=== PATIENT | female | born 1950 | race Caucasian/White ===

== ENCOUNTER → 2016-10-04 | Outpatient (CLI) | payer BC ==
[~2016-10-04] MED LIST: ALPR-411 PO; ALPR1TAB3 PO; ATRIN NAE; CHOLTAB3 PO; CLB200 PO; DOCU50CA2 PO; ESCI10TA17 PO; ESCI1TAB10 PO; FLUT0.15 NAE; HYDR-3714 PO; IMD/2 PO; LANS15CA6 PO; LBT/100 PO; LEVO25TA5 PO; LEVO50TA6 PO; LVQ750 PO; MAGN400T6 PO; MONT1TAB3 PO; POLYSOL4 OP; POTA-335 PO; PRED10TA PO; PRLSR20 PO; SPIR25TA PO
[2016-10-04 18:21] LABS: ALT/SGPT 12 U/L (12-78); BLOOD UREA NITROGEN 20 mg/dl (7-18); BUN/CREATININE RATIO 16.8 (10-20); CALCIUM 8.8 mg/dl (8.5-10.1); CARBON DIOXIDE 24 mmol/L (21-32); CHLORIDE 102 mmol/L (98-107); GLUCOSE 89 mg/dl (70-99); MAGNESIUM 1.6 mg/dl (1.8-2.4); SODIUM 139 mmol/L (136-145)
[2016-10-04 18:33] LABS: ALB/GLOB RATIO 0.7 (0.9-2); ALKALINE PHOSPHATASE 73 U/L (45-117); AST/SGOT 17 U/L (15-37); CHOLESTEROL 156 mg/dl (0-200); CHOLESTEROL/HDL RATIO 4.1; HDL CHOLESTEROL 38 mg/dl; LDL CHOLESTEROL CALCULATED 80 mg/dl; TRIGLYCERIDES 189 mg/dl (0-150); VERY LOW DENSITY LIPOPROT CALC 38 mg/dl
== END | disposition home or self-care (01) ==
LOC: C.LABPBG 11:20
PROVIDERS: ATTEND Family Medicine
DX: E87.6 Hypokalemia (principal); I10 Essential (primary) hypertension; E78.5 Hyperlipidemia, unspecified; M48.06 Spinal stenosis, lumbar region; E03.9 Hypothyroidism, unspecified

== ENCOUNTER → 2016-11-11 | Outpatient (CLI) | payer BC ==
[~2016-11-11] MED LIST changes: -ALPR-411 PO; -ESCI10TA17 PO; -LEVO25TA5 PO; -LVQ750 PO
[2016-11-11 15:05] LABS: THYROID STIMULATING HORMONE 2.68 uIu/ml (0.300-4.500)
[2016-11-11 15:12] LABS: CALCIUM URINE < 5.0 mg/dl; URINE COLLECTION TIME 24 HOURS
[2016-11-13 20:40] LABS: ALBUMIN 4.1 G/DL (3.8-4.8); GAMMA GLOBULIN 1.1 G/DL (0.8-1.7); TOTAL PROTEIN 7.4 G/DL (6.2-8.3)
== END | disposition home or self-care (01) ==
LOC: C.LAB1850 13:23
PROVIDERS: ATTEND Internal Medicine Rheumatology
DX: E03.9 Hypothyroidism, unspecified (principal); T38.0X1A Poisoning by glucocorticoids and synthetic analogues, accidental (unintentional), initial encounter; M80.88XD Other osteoporosis with current pathological fracture, vertebra(e), subsequent encounter for fracture with routine healing; E55.9 Vitamin D deficiency, unspecified; E61.8 Deficiency of other specified nutrient elements; Z79.52 Long term (current) use of systemic steroids; M85.851 Other specified disorders of bone density and structure, right thigh; M85.852 Other specified disorders of bone density and structure, left thigh

== ENCOUNTER → 2016-11-11 | Outpatient (CLI) | payer BC | END | disposition home or self-care (01) | LOC: C.MAMM 13:59 | PROVIDERS: ATTEND Internal Medicine Rheumatology | DX: M80.88XA Other osteoporosis with current pathological fracture, vertebra(e), initial encounter for fracture (principal); M85.851 Other specified disorders of bone density and structure, right thigh; M85.852 Other specified disorders of bone density and structure, left thigh ==

== ENCOUNTER → 2016-12-27 | Outpatient (CLI) | payer BC ==
[2016-12-30 10:19] LABS: URCREATININE 136.7 MG/DL (>/= 20)
--- NOTE | 2017-01-01 14:14 | CODING QUERY MEDICAL NECESSITY ---
CQSUPPORTING DIAGNOSIS NEEDED A supporting diagnosis is required for the test/procedure performed on this patient in order for us to be reimbursed by the patient's insurance. Please provide a supporting diagnosis for the following test/procedure listed below next to the test name along with your signature. *If there is no additional diagnosis for this patient that would support the following test/procedure please document that below next to the test/procedure. Test(s)/Procedure(s) that require a supporting diagnosis: DOS 12/27/16 CONTROLLED SUBSTANCE TESTING Provider Signature: Date: Thank you Goldie Burgess Health Information Management Once completed, please kindly fax back to [phone] For questions please call [phone]
== END | disposition home or self-care (01) ==
LOC: C.LABPBG 14:11
PROVIDERS: ATTEND Family Medicine
DX: S32.020A Wedge compression fracture of second lumbar vertebra, initial encounter for closed fracture (principal); X58.XXXA Exposure to other specified factors, initial encounter; Z79.899 Other long term (current) drug therapy

== ENCOUNTER → 2017-04-08 | Outpatient (CLI) | payer OTHER | END | disposition home or self-care (01) | LOC: C.LABPBG 12:53 | PROVIDERS: ATTEND Internal Medicine Rheumatology | DX: Z85.3 Personal history of malignant neoplasm of breast (principal); Z12.11 Encounter for screening for malignant neoplasm of colon; E03.9 Hypothyroidism, unspecified; I10 Essential (primary) hypertension; E78.5 Hyperlipidemia, unspecified; E55.9 Vitamin D deficiency, unspecified ==

== ENCOUNTER → 2017-04-29 | Outpatient (CLI) | payer OTHER ==
[2017-04-29 16:59] LABS: AST/SGOT 9 U/L (15-37); BLOOD UREA NITROGEN 11 mg/dl (7-18); BUN/CREATININE RATIO 11.4 (10-20); CALCIUM 9.3 mg/dl (8.5-10.1); CARBON DIOXIDE 27 mmol/L (21-32); CHLORIDE 106 mmol/L (98-107); CHOLESTEROL 176 mg/dl (0-200); CREATININE 0.94 mg/dl (0.60-1.20); GLUCOSE 88 mg/dl (70-99); POTASSIUM 3.9 mmol/L (3.5-5.1); SODIUM 140 mmol/L (136-145); TRIGLYCERIDES 177 mg/dl (0-150); VERY LOW DENSITY LIPOPROT CALC 35 mg/dl
[2017-04-29 17:09] LABS: ALB/GLOB RATIO 0.8 (0.9-2); ALKALINE PHOSPHATASE 71 U/L (45-117); ALT/SGPT 12 U/L (12-78); CHOLESTEROL/HDL RATIO 4.4; HDL CHOLESTEROL 40 mg/dl; LDL CHOLESTEROL CALCULATED 101 mg/dl
== END | disposition home or self-care (01) ==
LOC: C.LABBC 13:05
PROVIDERS: ATTEND Family Medicine
DX: I10 Essential (primary) hypertension (principal); E03.9 Hypothyroidism, unspecified; E78.5 Hyperlipidemia, unspecified; Z11.59 Encounter for screening for other viral diseases

== ENCOUNTER → 2017-10-15 | Outpatient (CLI) | payer OTHER ==
[~2017-10-15] MED LIST changes: -CLB200 PO; -LBT/100 PO; -PRED10TA PO
== END | disposition home or self-care (01) ==
LOC: C.LAB1850 15:27
PROVIDERS: ATTEND Internal Medicine Rheumatology
DX: S32.020A Wedge compression fracture of second lumbar vertebra, initial encounter for closed fracture (principal); M80.88XA Other osteoporosis with current pathological fracture, vertebra(e), initial encounter for fracture; X58.XXXA Exposure to other specified factors, initial encounter; E55.9 Vitamin D deficiency, unspecified

== ENCOUNTER → 2017-10-26 | Outpatient (CLI) | payer OTHER ==
[2017-10-31 16:54] LABS: FECAL OCCULT BLOOD #1 NEGATIVE (NEGATIVE); FECAL OCCULT BLOOD #2 NEGATIVE (NEGATIVE); FECAL OCCULT BLOOD #3 NEGATIVE (NEGATIVE)
== END | disposition home or self-care (01) ==
LOC: C.LABSPEC 14:01
PROVIDERS: ATTEND Family Medicine
DX: Z12.11 Encounter for screening for malignant neoplasm of colon (principal)

== ENCOUNTER → 2017-10-27 | Outpatient (CLI) | payer OTHER ==
[2017-10-27 12:40] LABS: HEMATOCRIT 38.6 % (37-47); HEMOGLOBIN 12.7 g/dL (12.0-16.0); MEAN CELL VOLUME 84.5 fL (80-100); MEAN CORPUSCULAR HEMOGLOBIN 27.8 pg (25-34); MEAN CORPUSCULAR HGB CONC 32.9 g/dl (32-36); MEAN PLATELET VOLUME 10.9 fL (7.4-10.4); PLATELET COUNT 335 K/uL (130-400); RED CELL DISTRIBUTION WIDTH SD 39.8 fL (36.4-46.3); WHITE BLOOD COUNT 7.45 K/uL (4.8-10.8)
[2017-10-27 13:39] LABS: ALBUMIN 3.4 gm/dl (3.4-5.0); ALT/SGPT 13 U/L (12-78); AST/SGOT 9 U/L (15-37); BLOOD UREA NITROGEN 15 mg/dl (7-18); CALCIUM 8.8 mg/dl (8.5-10.1); CARBON DIOXIDE 25 mmol/L (21-32); GLUCOSE 95 mg/dl (70-99); POTASSIUM 3.6 mmol/L (3.5-5.1); SODIUM 141 mmol/L (136-145); TOTAL PROTEIN 7.4 gm/dl (6.4-8.2)
[2017-10-27 13:50] LABS: ALKALINE PHOSPHATASE 88 U/L (45-117); CHOLESTEROL 203 mg/dl (0-200); LDL CHOLESTEROL CALCULATED 126 mg/dl
== END | disposition home or self-care (01) ==
LOC: C.LABPBG 10:39
PROVIDERS: ATTEND Family Medicine
DX: E03.9 Hypothyroidism, unspecified (principal); I10 Essential (primary) hypertension; M48.061 Spinal stenosis, lumbar region without neurogenic claudication; E78.5 Hyperlipidemia, unspecified

== ENCOUNTER → 2017-12-11 | Outpatient (CLI) | payer OTHER ==
--- NOTE | 2017-12-12 07:46 | MAMMOGRAPHY REPORT ---
BILATERAL DIGITAL SCREENING MAMMOGRAM TOMOSYNTHESIS WITH CAD: 12/11/2017 CLINICAL HISTORY: Routine screening. Patient has no complaints. TECHNIQUE: Breast tomosynthesis in addition to standard 2D mammography was performed. Current study was also evaluated with a Computer Aided Detection (CAD) system. COMPARISON: Comparison is made to exams dated: 10/10/2015 mammogram, 09/13/2014 mammogram - [facility], 05/27/2013 mammogram, and 02/20/2012 mammogram - [facility]-. BREAST COMPOSITION: The tissue of both breasts is almost entirely fatty. FINDINGS: No suspicious masses, calcifications, or areas of architectural distortion are noted in ei ther breast. There has been no significant interval change compared to prior exams. Scattered bilater al benign-appearing calcifications are not significantly changed. IMPRESSION: ACR BI-RADS CATEGORY 2: BENIGN There is no mammographic evidence of malignancy. A 1 year screening mammogram is recommended. The pa tient will receive written notification of the results. Approximately 10% of breast cancers are not detected with mammography. A negative mammographic report should not delay biopsy if a clinically suggestive mass is present. Allie Huynh M.D. ah/:12/11/2017 17:23:10 Schedule Checker: Samantha HEATH(Yue)(M), [facility] letter sent: Normal 1/2 BI-RADS Code: ACR BI-RADS Category 2: Benign
== END | disposition home or self-care (01) ==
LOC: C.MAMM 10:59
PROVIDERS: ATTEND Internal Medicine Rheumatology
DX: Z12.31 Encounter for screening mammogram for malignant neoplasm of breast (principal); Z85.3 Personal history of malignant neoplasm of breast

== ENCOUNTER → 2018-03-31 | Outpatient (CLI) | payer OTHER ==
[~2018-03-31] MED LIST changes: +DICL1GEL12; +DICLOFENAC CREAM; -HYDR-3714 PO; +HYDR0.054; +LIDO1CRE16 TOP
--- NOTE | 2018-03-31 15:40 | DIAGNOSTIC IMAGING REPORT ---
LUMBAR SPINE MRI HISTORY: LUMBAR STENOSIS TECHNIQUE: Multiplanar multisequence MRI of the lumbar spine was performed without the use of contrast. COMPARISON: Lumbar spine radiograph 02/16/2016. FINDINGS: For the purpose of the report the L5-S1 disc space will be located on axial image 31 of 33. Mild superior endplate compression deformities at T10, T11, L1, L2, and L3. No associated marrow edema. Therefore, these are considered to be old. There is a severe anterior wedge-shaped compression deformity at T12 which is similar to the prior study. There is 4 mm of retropulsion of the posterior fragment. Severe disc space narrowing at L3-L4, L4-L5, and L5-S1. Mild disc space narrowing at T11-T12 and T12-L1. Mild to moderate facet degenerative changes within the lumbar spine. Paraspinal soft tissues are within normal limits. The conus terminates at the T12-L1 disc space level. There is mild central canal narrowing at the T12 level due to the retropulsion. Mild S-shaped scoliosis of the thoracolumbar spine. T12-L1: Broad-based posterior disc bulge with retropulsion of the T12 vertebral body resulting in mild central canal and mild bilateral neural foraminal narrowing. L1-L2: Broad-based posterior disc bulge with ligamentum and facet hypertrophy resulting in mild central canal and mild bilateral neural foraminal narrowing. L2-L3: Broad-based posterior disc bulge with ligamentum and facet hypertrophy resulting in moderate central canal and mild bilateral neural foraminal narrowing. L3-L4: Broad-based posterior disc bulge asymmetric to the left resulting in moderate central canal and moderate right neural foraminal narrowing. There is mild left-sided neural foraminal narrowing. L4-L5: Broad-based posterior disc bulge asymmetric to the left. In conjunction with the ligamentum and facet hypertrophy there is severe central canal and severe left-sided neural foraminal narrowing. Moderate right-sided neural foraminal narrowing. L5-S1: Small broad-based posterior disc bulge with ligamentum and facet hypertrophy. Best seen on axial image 29 of 33 there is a 5 mm slightly T2 hyperintense focus which appears to be extending from the right L5-S1 facet. This extends into the right side of the thecal sac and results in moderate to severe central canal narrowing. This favors a synovial cyst. There is also moderate bilateral neural foraminal narrowing. IMPRESSION: 1. Multiple old compression fractures seen within the lower thoracic and upper lumbar spine as described above. The severe compression deformity at T12 is not significantly changed and continues to demonstrate 4 mm of retropulsion. This results in mild central canal narrowing at this level. No acute fractures identified. 2. Multilevel moderate to severe lumbar spondylosis as described above most notable within the lower lumbar spine. 3. There is a 5 mm T2 hyperintense focus extending from the right L5-S1 facet into the thecal sac resulting in moderate to severe central canal narrowing at the L5-S1 level. This favors a synovial cyst. 4. S-shaped scoliosis of the thoracolumbar spine. Electronically signed by: Azael Pinto M.D. 03/31/2018 3:39 PM Dictated Date/Time: 03/31/2018 3:26 PM
== END | disposition home or self-care (01) ==
LOC: C.MRIBC 14:38
PROVIDERS: ATTEND Physician Assistant Medical
DX: M48.061 Spinal stenosis, lumbar region without neurogenic claudication (principal); M41.9 Scoliosis, unspecified; M47.816 Spondylosis without myelopathy or radiculopathy, lumbar region

== ENCOUNTER 2019-02-26 10:50 | Inpatient (IN) ==
--- NOTE | 2019-02-08 11:33 | PAT Medication Instructions ---
Medication Instructions Date of Service February 08, 2019 Home Medications Medication Instructions Recorded celecoxib 200 mg capsule 200 mg PO DAILY PRN #90 cap 02/08/19 cholecalciferol (vitamin D3) 400 unit capsule 400 units PO QPM escitalopram 20 mg tablet 20 mg PO QAM fluticasone propionate 50 mcg/actuation nasal spray,suspension 1 sprays INTNAS BID PRN ipratropium bromide 17 mcg/actuation HFA aerosol inhaler 2 puffs INH DAILY PRN levothyroxine 50 mcg capsule 50 mcg PO QAM loperamide 2 mg capsule 2 mg PO Q4H PRN magnesium oxide 400 mg (241.3 mg magnesium) tablet 400 mg PO BID montelukast 10 mg tablet 10 mg PO QPM omeprazole 20 mg capsule,delayed release 20 mg PO DAILY propylene glycol 0.6 % eye drops 1 % OP .as directed spironolactone 25 mg tablet 25 mg PO QAM folic acid 1 mg tablet 1 mg PO QAM methotrexate sodium 2.5 mg tablet 15 mg PO .weekly nortriptyline 25 mg capsule 25 mg PO HS labetalol 100 mg PO BID pravastatin 20 mg PO QAM docusate sodium 100 mg capsule 1 PO .TAKE 1 CAPSULE DAILY potassium chloride ER 20 mEq tablet,extended release PO prochlorperazine maleate 5 mg tablet PO PRN celecoxib 200 mg capsule 200 mg PO DAILY PRN ASK your surgeon for instructions celecoxib 200 mg capsule 200 mg PO DAILY PRN ASK your prescriber and surgeon methotrexate sodium 2.5 mg tablet 15 mg PO .weekly DO NOT take the morning of surgery loperamide 2 mg capsule 2 mg PO Q4H PRN magnesium oxide 400 mg (241.3 mg magnesium) tablet 400 mg PO BID spironolactone 25 mg tablet 25 mg PO QAM folic acid 1 mg tablet 1 mg PO QAM docusate sodium 100 mg capsule 1 PO .TAKE 1 CAPSULE DAILY potassium chloride ER 20 mEq tablet,extended release PO Take morning of surgery With a small sip of water, OTHERWISE NOTHING TO EAT OR DRINK AFTER MIDNIGHT: escitalopram 20 mg tablet 20 mg PO QAM fluticasone propionate 50 mcg/actuation nasal spray,suspension 1 sprays INTNAS BID PRN (if needed) ipratropium bromide 17 mcg/actuation HFA aerosol inhaler 2 puffs INH DAILY PRN (if needed, and bring with you to the hospital) levothyroxine 50 mcg capsule 50 mcg PO QAM omeprazole 20 mg capsule,delayed release 20 mg PO DAILY propylene glycol 0.6 % eye drops 1 % OP .as directed labetalol 100 mg PO BID pravastatin 20 mg PO QAM prochlorperazine maleate 5 mg tablet PO PRN (if needed) Take evening before surgery cholecalciferol (vitamin D3) 400 unit capsule 400 units PO QPM fluticasone propionate 50 mcg/actuation nasal spray,suspension 1 sprays INTNAS BID PRN (if needed) ipratropium bromide 17 mcg/actuation HFA aerosol inhaler 2 puffs INH DAILY PRN (if needed) loperamide 2 mg capsule 2 mg PO Q4H PRN (if needed) magnesium oxide 400 mg (241.3 mg magnesium) tablet 400 mg PO BID montelukast 10 mg tablet 10 mg PO QPM omeprazole 20 mg capsule,delayed release 20 mg PO DAILY propylene glycol 0.6 % eye drops 1 % OP .as directed nortriptyline 25 mg capsule 25 mg PO HS labetalol 100 mg PO BID docusate sodium 100 mg capsule 1 PO .TAKE 1 CAPSULE DAILY potassium chloride ER 20 mEq tablet,extended release PO prochlorperazine maleate 5 mg tablet PO PRN (if needed) Other Notes If you have any questions please call us at [phone] or [phone] or [phone] or [phone]
--- NOTE | 2019-02-08 11:53 | Anesthesiology Consultation ---
Date of Service February 08, 2019 Assessment & Plan (1) Encounter for pre-operative examination: Chart Review Chart Review: Acceptable Risk for Surgery and Patient seen in Pre Admission Testing Teaching & Discussion Instructed NPO after midnight before surgery, except medications with 15 cc of water. Medication instructions provided according to the PAT guidelines. History Surgery Operation Date: 02/26/19 10:00 Proposed Procedures p Left Reverse Total Shoulder Replacement - Sumit Ramirez, Height/Weight Height: 5 ft Weight: 67.9 kg Allergies Allergy/AdvReac Type Severity Reaction Status Date / Time bacitracin Allergy Intermediate hives, Unverified 02/05/19 13:12 blisters clavulanic acid Allergy Intermediate HIVES Verified 02/05/19 13:12 diphenhydramine Allergy Intermediate HIVES Verified 02/05/19 13:12 iodine Allergy Intermediate hives Verified 02/05/19 13:12 neomycin Allergy Intermediate hives, Unverified 02/05/19 13:12 blisters NSAIDS (Non-Steroidal Allergy Intermediate HIVES -- Verified 02/05/19 13:12 Anti-Inflamma TOLERATES CELEBREX ONLY oxycodone Allergy Intermediate HIVES; Verified 02/05/19 13:12 TOLERATES VICODIN polymyxin B Allergy Intermediate hives, Unverified 02/05/19 13:12 blisters quinine Allergy Intermediate HIVES Verified 02/05/19 13:12 Sulfa (Sulfonamide Allergy Intermediate HIVES Verified 02/05/19 13:12 Antibiotics) tramadol Allergy Intermediate HIVES,ITCHI Verified 02/05/19 13:12 NG latex Allergy Mild RASH Verified 02/05/19 13:12 povidone-iodine Allergy Mild RASH Verified 02/05/19 13:12 adhesive Allergy Unknown RASH Verified 02/05/19 13:12 ketorolac Allergy Unknown HIVES Unverified 02/05/19 13:12 meclofenamic acid Allergy Unknown HIVES Verified 02/05/19 13:12 meperidine AdvReac Intermediate NAUSEA/VOMI Verified 02/05/19 13:12 TING aspirin AdvReac Mild NAUSEA/VOMI Verified 01/21/19 13:13 TING Medications Home Medications Medication Instructions Recorded Confirmed Last Taken cholecalciferol (vitamin D3) 400 400 units PO QPM 05/26/18 02/05/19 Unknown unit capsule escitalopram 20 mg tablet 20 mg PO QAM tab 05/26/18 02/05/19 Unknown fluticasone propionate 50 1 sprays INTNAS BID PRN gm 05/26/18 02/05/19 Unknown mcg/actuation nasal spray,suspension ipratropium bromide 17 2 puffs INH DAILY PRN gm 05/26/18 02/05/19 Unknown mcg/actuation HFA aerosol inhaler levothyroxine 50 mcg capsule 50 mcg PO QAM 05/26/18 02/05/19 Unknown loperamide 2 mg capsule 2 mg PO Q4H PRN 05/26/18 02/05/19 Unknown magnesium oxide 400 mg (241.3 mg 400 mg PO BID tab 05/26/18 02/05/19 Unknown magnesium) tablet montelukast 10 mg tablet 10 mg PO QPM 05/26/18 02/05/19 Unknown omeprazole 20 mg capsule,delayed 20 mg PO DAILY 05/26/18 02/05/19 Unknown release propylene glycol 0.6 % eye drops 1 % OP .as directed ml 05/26/18 02/05/19 Unknown spironolactone 25 mg tablet 25 mg PO QAM 05/26/18 02/05/19 Unknown folic acid 1 mg tablet 1 mg PO QAM 01/13/19 02/05/19 Unknown methotrexate sodium 2.5 mg tablet 15 mg PO .weekly tab 01/13/19 02/05/19 Unknown nortriptyline 25 mg capsule 25 mg PO HS cap 01/13/19 02/05/19 Unknown labetalol 100 mg PO BID 01/21/19 02/05/19 Unknown pravastatin 20 mg PO QAM 01/21/19 02/05/19 Unknown docusate sodium 100 mg capsule 1 PO .TAKE 1 CAPSULE DAILY cap 02/03/19 02/05/19 Unknown potassium chloride ER 20 mEq PO .TAKE 1 TABLET BY KASSY #180 tab 02/03/19 02/05/19 Unknown tablet,extended release prochlorperazine maleate 5 mg PO .TAKE 1 TABLET EVERY #30 tab 02/03/19 02/05/19 Unknown tablet celecoxib 200 mg capsule 200 mg PO DAILY PRN #90 cap 02/08/19 Unknown Past Medical History Medical History Steroid-induced osteoporosis Hyperlipidemia Constipation Cervicalgia Compression fracture of body of thoracic vertebra Per CXR 11/21/18, compression fractures at T8, T10-L3 vertebral bodies, severe at T12. SURGEON MADE AWARE. Vitamin D deficiency Depression Allergic rhinitis Anxiety Asthma uses PRN inh 2 x wk on avg Hypertension DJD (degenerative joint disease) Chronic back pain GERD (gastroesophageal reflux disease) History of right breast cancer s/p lumpectomy Hyperlipidemia Hypothyroidism IBS (irritable bowel syndrome) Osteoarthritis Rheumatoid arthritis On Methotrexate Exercise / Class Metabolic Activity II 4-5 Yardwork/Stairs/Walk up hill (Does stairs at home daily, some +SOB, no CP.) Past Family History Family History Grandmother (Paternal) Family history of diabetes mellitus Grandmother (Maternal) Family history of diabetes mellitus Past Surgical History Surgical History History of breast biopsy (Resolved) Status post total shoulder arthroplasty (Resolved) Right History of arthroscopy of left knee History of foot surgery BL History of lumpectomy of right breast History of right knee joint replacement History of tonsillectomy History of total abdominal hysterectomy and bilateral salpingo-oophorectomy Nausea and vomiting after administration of anesthetic agent 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 +seasonal allergies Physical Exam Vital Signs BP: 131/83 P: 78bpm SPO2: 96% RA T: 98.3 F R: 16 ENMT Mouth: + poor dentition, + chipped teeth (many teeth broken off at the root) and + small oral opening; no loose teeth Thyromental Distance: < 3.5 Finger Breadths (3) Mallampati Class: III Neck + short neck and + thick neck; neck extension not limited Significant loose tissue/skin anterior neck. Respiratory normal respiratory effort Auscultation: lungs clear to auscultation bilaterally Cardiovascular Rate/Rhythm: regular rate and regular rhythm Heart Sounds: no murmur Vessels: no carotid bruit Extremities: no edema Testing Laboratory Results 02/08/19 12:01 02/08/19 02/08/19 12:01 12:01 PT 10.1 INR 1.0 APTT 24.4 Blood Type A Negative Antibody Screen NEGATIVE 01/15/19 WBC: 7.11 H/H: 12.5/38.4 PLATELETS: 350 Electrocardiogram Date: 02/08/19 Findings: + NSR @ (80) LVH with QRS widening and repolarization abnormality. Compared to EKG from 02/19/16, PACs no longer present, QRS duration has increased, criteria for anterior infarct no longer present, NSTWA no longer evident in inferior leads, QT has lengthened. Chest X-Ray Date: 11/21/18 Lungs essentially clear. Right total shoulder prosthesis with metallic humeral and glenoid components. Scoliosis. Compression fractures of the approximately T8 and T10-L3 vertebral bodies, severe at T12. Cholelithiasis. Stress Test Date: 08/07/15 Type: DSE Resting EF: 50-55% Negative dobutamine stress echo and EKG for myocardial ischemia at 68% maximum predicted heart rate. No EKG changes. No dobutamine induced chest pain. Patient had hypertensive blood pressure response to dobutamine infusion. Baseline echocardiogram notes normal LV function. Cervical Spine Date: 02/08/19 FINDINGS: There is straightening of the normal cervical lordosis. No cervical spine fracture is noted. There is moderate to severe multilevel disc space narrowing and facet arthrosis within the cervical spine. During flexion, the atlantodental interval measures 2 mm. There is no evidence for cervical spine instability. IMPRESSION: 1. No evidence of cervical spine instability during flexion or extension. 2. Moderate to severe multilevel degenerative disc disease and facet arthrosis within the cervical spine.
[2019-02-08 12:28] LABS: Partial Thromboplastin Ratio 0.9; Partial Thromboplastin Time 24.4 Seconds (21.0-31.0); Prothrombin Time 10.1 Seconds (9.0-12.0)
--- NOTE | 2019-02-08 13:42 | XRay Report ---
LATERAL CERVICAL SPINE RADIOGRAPHS, INCLUDING FLEXION AND EXTENSION CLINICAL HISTORY: pre op RA; lateral neutral/flexion/extension COMPARISON STUDY: Cervical spine radiographs November 21, 2014. FINDINGS: There is straightening of the normal cervical lordosis. No cervical spine fracture is noted . There is moderate to severe multilevel disc space narrowing and facet arthrosis within the cervical spine. During flexion, the atlantodental interval measures 2 mm. There is no evidence for cervical s pine instability. IMPRESSION: 1. No evidence of cervical spine instability during flexion or extension. 2. Moderate to severe multilevel degenerative disc disease and facet arthrosis within the cervical sp ine. Electronically signed by: Rodney Gilbert M.D. 02/08/2019 1:41 PM
[2019-02-08 14:31] LABS: BUN Creatinine Ratio 15.8 (10-20); Calcium 9.3 mg/dl (8.5-10.1); Creatinine Clr Calc Pharmacy 51.7 ml/min; Est GFR (African American) 75.2; Est GFR (Non-African American) 64.9; Potassium 3.9 mmol/L (3.5-5.1)
--- NOTE | 2019-02-25 14:40 | History & Physical Report ---
Date of Service February 25, 2019 Assessment & Plan (1) Rotator cuff arthropathy of left shoulder: We will proceed with a left reverse shoulder arthroplasty. Postoperatively she will be placed in a sling and kept overnight for postoperative medical management. She plans to use [facility] in [place] upon discharge. Present on Admission?: Yes History of Present Illness Chief Complaint: Rotator cuff arthropathy of the left shoulder Primary Care Provider: Tayla Kent DO Tammy is a pleasant 68-year-old female who is been dealing with chronic increasing left shoulder pain. I have been treating her with serial injections, but the injections are no longer helping. She does have a history of a left rotator cuff repair done in 2008 by another provider. She also has a history of a right reverse shoulder arthroplasty done by another provider about 10 years ago. Unfortunately she continues to have a lot of left shoulder pain. After failing conservative treatment, she has elected proceed with a left reverse shoulder arthroplasty. Allergies Allergy/AdvReac Type Severity Reaction Status Date / Time bacitracin Allergy Intermediate hives, Unverified 02/05/19 13:12 blisters clavulanic acid Allergy Intermediate HIVES Verified 02/05/19 13:12 diphenhydramine Allergy Intermediate HIVES Verified 02/05/19 13:12 iodine Allergy Intermediate hives Verified 02/05/19 13:12 neomycin Allergy Intermediate hives, Unverified 02/05/19 13:12 blisters NSAIDS (Non-Steroidal Allergy Intermediate HIVES -- Verified 02/05/19 13:12 Anti-Inflamma TOLERATES CELEBREX ONLY oxycodone Allergy Intermediate HIVES; Verified 02/05/19 13:12 TOLERATES VICODIN polymyxin B Allergy Intermediate hives, Unverified 02/05/19 13:12 blisters quinine Allergy Intermediate HIVES Verified 02/05/19 13:12 Sulfa (Sulfonamide Allergy Intermediate HIVES Verified 02/05/19 13:12 Antibiotics) tramadol Allergy Intermediate HIVES,ITCHI Verified 02/05/19 13:12 NG latex Allergy Mild RASH Verified 02/05/19 13:12 povidone-iodine Allergy Mild RASH Verified 02/05/19 13:12 adhesive Allergy Unknown RASH Verified 02/05/19 13:12 ketorolac Allergy Unknown HIVES Unverified 02/05/19 13:12 meclofenamic acid Allergy Unknown HIVES Verified 02/05/19 13:12 meperidine AdvReac Intermediate NAUSEA/VOMI Verified 02/05/19 13:12 TING aspirin AdvReac Mild NAUSEA/VOMI Verified 01/21/19 13:13 TING Home Medications Home Medications Medication Instructions Recorded Confirmed Type cholecalciferol (vitamin D3) 400 400 units PO QPM 05/26/18 02/05/19 History unit capsule escitalopram 20 mg tablet 20 mg PO QAM tab 05/26/18 02/05/19 History fluticasone propionate 50 1 sprays INTNAS BID PRN gm 05/26/18 02/05/19 History mcg/actuation nasal spray,suspension ipratropium bromide 17 2 puffs INH DAILY PRN gm 05/26/18 02/05/19 History mcg/actuation HFA aerosol inhaler levothyroxine 50 mcg capsule 50 mcg PO QAM 05/26/18 02/05/19 History loperamide 2 mg capsule 2 mg PO Q4H PRN 05/26/18 02/05/19 History magnesium oxide 400 mg (241.3 mg 400 mg PO BID tab 05/26/18 02/05/19 History magnesium) tablet montelukast 10 mg tablet 10 mg PO QPM 05/26/18 02/05/19 History omeprazole 20 mg capsule,delayed 20 mg PO DAILY 05/26/18 02/05/19 History release propylene glycol 0.6 % eye drops 1 % OP .as directed ml 05/26/18 02/05/19 History spironolactone 25 mg tablet 25 mg PO QAM 05/26/18 02/05/19 History folic acid 1 mg tablet 1 mg PO QAM 01/13/19 02/05/19 History methotrexate sodium 2.5 mg tablet 15 mg PO .weekly tab 01/13/19 02/05/19 History nortriptyline 25 mg capsule 25 mg PO HS cap 01/13/19 02/05/19 History labetalol 100 mg PO BID 01/21/19 02/05/19 History pravastatin 20 mg PO QAM 01/21/19 02/05/19 History docusate sodium 100 mg capsule 1 PO .TAKE 1 CAPSULE DAILY cap 02/03/19 02/05/19 History potassium chloride ER 20 mEq PO .TAKE 1 TABLET BY KASSY #180 tab 02/03/19 02/05/19 History tablet,extended release prochlorperazine maleate 5 mg PO .TAKE 1 TABLET EVERY #30 tab 02/03/19 02/05/19 History tablet celecoxib 200 mg capsule 200 mg PO DAILY PRN #90 cap 02/08/19 Rx Past Med/Surg History Medical History Steroid-induced osteoporosis Hyperlipidemia Constipation Cervicalgia Compression fracture of body of thoracic vertebra Per CXR 11/21/18, compression fractures at T8, T10-L3 vertebral bodies, severe at T12. SURGEON MADE AWARE. Vitamin D deficiency Depression Allergic rhinitis Anxiety Asthma uses PRN inh 2 x wk on avg Hypertension DJD (degenerative joint disease) Chronic back pain GERD (gastroesophageal reflux disease) History of right breast cancer s/p lumpectomy Hyperlipidemia Hypothyroidism IBS (irritable bowel syndrome) Osteoarthritis Rheumatoid arthritis On Methotrexate Surgical History History of breast biopsy (Resolved) Status post total shoulder arthroplasty (Resolved) Right History of arthroscopy of left knee History of foot surgery BL History of lumpectomy of right breast History of right knee joint replacement History of tonsillectomy History of total abdominal hysterectomy and bilateral salpingo-oophorectomy Nausea and vomiting after administration of anesthetic agent 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 Family History Grandmother (Paternal) Family history of diabetes mellitus Grandmother (Maternal) Family history of diabetes mellitus Social History Preferred Language: [place]ian Communication Ability: Effective Visual Impairment: No Limitations Hearing Ability: Normal Beliefs That Will Affect Care: None marital status: Current Living Situation: Spouse current occupational status: retired Feels Safe at Home: Yes Smoking Status: Never smoker Second Hand Exposure: Yes ( A CHILD) Hx Alcohol Use: No Hx Substance Use: No Review of Systems All systems reviewed & are unremarkable except as noted in HPI & below Physical Exam Constitutional: WD/WN, vitals as above Eyes: PERRL, conjunctivae normal, anicteric sclerae ENMT: external ear and nose normal, oropharynx normal Neck: trachea midline, no thyromegaly Respiratory: normal respiratory effort Cardiovascular: RRR, no murmur, no edema Gastrointestinal (Abdomen): normal bowel sounds, soft, nontender, no hepatosplenomegaly Musculoskeletal: Physical examination of the left shoulder reveals decreased range of motion and significant weakness. There is tenderness palpation along the anterior glenohumeral joint line. The right upper extremity is n eurovascularly intact. Psychiatric: A+Ox3, euthymic affect Results & Data Diagnostic Findings Radiographs of the left shoulder show some signs of osteoarthritis with blunting of the greater tuberosity and some superior migration of the humeral head on the glenoid.
[~2019-02-26 10:50] MED LIST changes: +ACETAMINOPHEN 500 MG TAB PO SCH; -ALPR1TAB3 PO; -ATRIN NAE; +BUPIVACAINE 0.5 % 5 MG/1 ML PF 10ML VIAL ONE; -CHOLTAB3 PO; +DEXAMETHASONE SOD INJ 4 MG/ML VIAL ONE; -DICL1GEL12; -DICLOFENAC CREAM; -DOCU50CA2 PO; -ESCI1TAB10 PO; +FAMOTIDINE 20 MG TAB PO SCH; -FLUT0.15 NAE; +GABAPENTIN 300 MG PO SCH; +GENERAL ORDER PROBLEM SCH; +GLYCOPYRROLATE 0.2 MG/ML VIAL ONE; -HYDR0.054; -IMD/2 PO; -LANS15CA6 PO; -LEVO50TA6 PO; -LIDO1CRE16 TOP; +LIDOCAINE HCL 2% 2 ML VIAL/AMP(20MG/ML) INFIL ONE; +LR 15ML/HR IV SCH; +LR 60ML/HR IV SCH; -MAGN400T6 PO; +MIDAZOLAM HCL 1 MG/ML 2ML VIAL ONE; -MONT1TAB3 PO; +NEOSTIGMINE METHYLSULFATE 5 MG/5 ML SYR ONE; +ONDANSETRON INJ 2 MG/ML 2 ML VIAL ONE; -POLYSOL4 OP; -POTA-335 PO; -PRLSR20 PO; +PROPOFOL IV EMULSION 10 MG/ML 20 ML VIAL IV ONE; +ROPIVACAINE 0.5% HCL/PF 150 MG, BUPIVACAINE 0.5% MPF 30 ML, EPINEPHrine 30MG/30ML (OR U... INFIL SCH; -SPIR25TA PO; +TRANEXAMIC ACID 1,000 MG **IV Intra-op IV SCH; +TRANEXAMIC ACID 1,000 MG **IV Pre-op IV SCH; +fentaNYL citrate 100 MCG/2 ML VIAL ONE
[2019-02-26] MEDS ORDERED: MIDAZOLAM HCL 1 MG/ML 2ML VIAL ONE (11:08)
--- NOTE | 2019-02-26 11:28 | History & Physical Bridge Note ---
Date of Service February 26, 2019 History & Physical Bridge Note I have examined the patient, reviewed the History & Physical and in the interval since the performance of the History & Physical I have noted the following changes of clinical significance: no changes noted
[2019-02-26] MEDS ORDERED: ORTHO JOINT ANESTHETIC ONE (12:05)
[2019-02-26] MEDS ORDERED: CEFAZOLIN 1000MG 1,000 MG/7.5 ML SYR IV ONE (12:16)
[2019-02-26] MEDS ORDERED: SCOPOLAMINE 1.5 MG TDSY TD ONE (12:17)
[2019-02-26] MEDS ORDERED: HYDROmorphone INJ 1 MG/ML SYRINGE IV PRN (12:18)
[2019-02-26] MEDS ORDERED: ONDANSETRON INJ 2 MG/ML 2 ML VIAL IV PRN ×2 (12:18→15:50)
[2019-02-26] MEDS ORDERED: PROMETHAZINE HCL 6.25 MG in SODIUM CHLORIDE 0.9% 50 ML IV PRN (12:18)
[2019-02-26] MEDS ORDERED: LABETALOL HCL IV 5 MG/ML 20ML IV PRN (12:18)
[2019-02-26] MEDS ORDERED: ATROPINE SULFATE 0.1 MG/ML 10ML SYR IV PRN (12:18)
[2019-02-26] MEDS ORDERED: CEFAZOLIN 1,000 MG/7.5 ML IV PUSH IV ONE (12:19)
[2019-02-26] MEDS ORDERED: SCOPOLAMINE 1.5 MG TDSY ONE (12:20)
[2019-02-26] MEDS ORDERED: LARYING-O-JET KIT (LTA) ONE (13:33)
[2019-02-26] MEDS ORDERED: ROCURONIUM BROMIDE 10 MG/ML 5 ML VIAL ONE (13:33)
[2019-02-26] MEDS ORDERED: ONDANSETRON INJ 2 MG/ML 2 ML VIAL ONE (13:33)
[2019-02-26] MEDS ORDERED: GLYCOPYRROLATE 0.2 MG/ML VIAL ONE (13:58)
--- NOTE | 2019-02-26 14:04 | Operative Report ---
Post Operative Report Pre & Post Diagnosis Operation Date: 02/26/19 13:20 Pre-Op Diagnosis: Left Shoulder rotator cuff arthropathy Post-Op Diagnosis: Left Shoulder rotator cuff arthropathy Procedure Operation Date: 02/26/19 13:20 Actual Procedures p Left Reverse Total Shoulder Replacement(Left) - Sumit Ramirez DO Surgeon Sumit Ramirez DO Corporate Sales Representative Sumit Rahman PAC Estimated Blood Loss 250 Findings Consistent with Post-Op Diagnosis Specimens Left humeral head Complications none Disposition Disposition: Recovery Room Indications Della is a pleasant 68-year-old female who presented my office with complaints of chronic increasing left shoulder pain and weakness. She has a history of a open rotator cuff repair done by another provider about 10 years ago. She did well until recently. Clinical examination and x-rays were diagnostic for rotator cuff arthropathy of the left shoulder. After failing conservative treatment, she elected proceed with a left reverse shoulder arthroplasty. Description of Procedure Implants used: I used a [employer] Comprehensive reverse total shoulder arthroplasty system with a size 9 press fit mini humeral stem, a standard humeral tray and a standard humeral bearing, a 25 mm mini baseplate with a 6.5 mm central screw and superior and inferior locking screws, and a size 36 mm eccentric glenosphere. The patient arrived at [facility] for the above procedure. There were seen in the preoperative holding area and the operative extremity was identified and signed. They were given a preoperative antibiotic and an interscalene nerve block. They were taken back to the operating room, laid on table in supine position, and put under general anesthesia. They were then put into the beachchair position. The shoulder was then prepped and draped in sterile fashion. A timeout was done and the patient in the operative extremity was properly identified. A deltopectoral approach was used. Dissection was taken down through the fascia and the deltoid was retracted laterally and the conjoined tendon was retracted medially. The anterior shoulder was exposed. The long head of the biceps tendon was tenodesed to the upper border of the pectoralis major. The subscapularis was then released off the lesser tuberosity with a centimeter of cuff tissue remaining. The inferior capsule was released and the humeral head was dislocated. A canal finding reamer was sent down the center of the humeral canal. Sequential reaming up to a size 9 reamer was done. Off that reamer, a proximal humeral resection guide was placed. The proximal humerus was resected at 135 of inclination and 25 of retroversion. Osteophytes were then removed and the glenoid was exposed. Time was spent doing a complete capsular and labral release. The glenoid guide was then placed in the inferior aspect of the glenoid. A 3.2 mm Steinmann pin was then placed into the glenoid vault at 10 of inclination. The glenoid baseplate was then reamed. The final size 25 mm mini baseplate was then impacted in the place. A 6.5 mm central screw was then placed followed by superior and inferior locking screws. A 36 mm eccentric glenoid sphere was then impacted into place. Surrounding soft tissues were then injected with 100 cc an orthopedic pain control cocktail. The proximal humerus was then exposed. Sequential broaching of the humerus up to a size 9 broach was done. Off that broach a standard humeral tray was trialed. The shoulder was then reduced, brought through a full range of motion and felt to be stable. The shoulder was then dislocated and the broach was removed. The final size 9 mini press-fit humeral stem was then impacted into place. A standard humeral bearing was then snapped onto a standard humeral tray and the ring-lock mechanism was engaged. The humeral tray was then impacted onto the humeral stem. The shoulder was once again reduced, brought through a full range of motion and felt to be stable. The subscapularis was chronically torn and unable to be repaired. The joint was then irrigated with normal saline solution. Hemostasis was obtained. The skin was then closed with 2-0 Vicryl, 3-0V lock suture, and bar. A soft dressing and a regular arm sling was placed. The patient was then extubated and transferred to a hospital bed. They were taken to the postanesthesia care unit in stable condition. They tolerated the procedure well. I attest to the content of the Intraoperative Record and any orders documented therein. Any exceptions are noted below.
--- NOTE | 2019-02-26 14:53 | XRay Report ---
XR shoulder LT min 2V routine CLINICAL HISTORY: Post shoulder surgery postoperative COMPARISON: None. DISCUSSION: Anatomic alignment post total left shoulder arthroplasty. Good contact between metallic p rosthetic and underlying bone. Expected soft tissue postoperative change IMPRESSION: Anatomic alignment posttotal left shoulder arthroplasty The above report was generated using voice recognition software. It may contain grammatical, syntax or spelling errors. Electronically signed by: Kings Novoa M.D. 02/26/2019 2:52 PM
--- NOTE | 2019-02-26 15:13 | Anesthesiology Progress Note ---
Date of Service February 26, 2019 Anesthesia Post Procedure Vital Signs Vital Signs: Temp Pulse Pulse Resp BP Pulse Ox 02/26/19 15:05 97.3 F L 81 17 145/88 H 100 02/26/19 14:55 82 17 145/92 H 100 02/26/19 14:45 84 18 122/72 97 02/26/19 14:35 82 19 136/86 100 02/26/19 14:27 97.9 F 82 19 129/94 100 02/26/19 11:32 97.7 F 97 H 20 145/85 H 98 Pain Intensity Left Shoulder: Pain Intensity: 0 Transfer of Care Handoff Completed per policy Notes Mental Status: alert / awake / arousable and participated in evaluation Patient Amnestic to Procedure: Yes Nausea / Vomiting: adequately controlled Pain: adequately controlled Airway Patency, RR, SpO2: stable & adequate BP & HR: stable & adequate Hydration State: stable & adequate Anesthetic Complications: no major complications apparent and Pt Satisfied with anesthetic care
[2019-02-26] MEDS ORDERED: FLUTICASONE PROPIONATE NA SPR 16 GM BTL PRN (15:50)
[2019-02-26] MEDS ORDERED: ARTIFICIAL TEARS OP PRN (15:50)
[2019-02-26] MEDS ORDERED: NALOXONE HCL 0.4 MG/1 ML VIAL/CARP IV PRN (15:50)
[2019-02-26] MEDS ORDERED: MAGNESIUM HYDROXIDE SUSP 30 ML UDC PO PRN (15:50)
[2019-02-26] MEDS ORDERED: BISACODYL 10 MG SUPP PR PRN (15:50)
[2019-02-26] MEDS ORDERED: PROCHLORPERAZINE MALEATE 5 MG TAB PO PRN (15:50)
[2019-02-26] MEDS ORDERED: IPRATROPIUM BROMIDE HFA INHALER INH PRN (15:50)
[2019-02-26] MEDS ORDERED: HYDROmorphone INJ 0.5 MG/0.5 ML SYR IV PRN (15:50)
[2019-02-26] MEDS ORDERED: LOPERAMIDE HCL 2 MG CAP PO PRN (15:50)
[2019-02-26] MEDS ORDERED: METOCLOPRAMIDE HCL INJ 5 MG/ML 2 ML VIAL IV PRN (15:50)
[2019-02-26] MEDS ORDERED: CHECK SCOPOLAMINE PATCH PLACEMENT SCH (16:00)
[2019-02-26] MEDS: CEFAZOLIN 2000MG 2,000 MG/15 ML SYR IV SCH (20:33)
[2019-02-26] MEDS: DOCUSATE SODIUM 100 MG CAP PO SCH (20:43)
[2019-02-26] MEDS: LABETALOL HCL 100 MG TAB PO SCH (20:43)
[2019-02-26] MEDS: MAGNESIUM OXIDE 400 MG TAB PO SCH (20:45)
[2019-02-26] MEDS ORDERED: NORTRIPTYLINE HCL 25 MG CAP PO SCH (21:00)
[2019-02-26] MEDS ORDERED: MONTELUKAST SODIUM 10 MG TABLET PO SCH (21:00)
[2019-02-26] MEDS ORDERED: CHOLECALCIFEROL (VITAMIN D) 400 UNITS TABLET PO SCH (21:00)
[2019-02-26] MEDS ORDERED: SENNA 8.6 MG TAB PO SCH (21:00)
[2019-02-27] MEDS: SODIUM CHLORIDE 0.9% 1000ML 1,000 ML IV SCH ×2 (00:12→06:21)
[2019-02-27] MEDS: CEFAZOLIN 2000MG 2,000 MG/15 ML SYR IV SCH (03:30)
[2019-02-27] MEDS: HYDROCODONE/ACETAMOPHEN 5/325MG TAB PO PRN ×2 (04:25→08:22)
[2019-02-27 06:22] LABS: Hematocrit (blood only) 31.1 % (37-47); Mean Corpuscular Hgb Conc 32.2 g/dL (32-36); Mean Corpuscular Volume 92.3 fL (80-100); Mean Platelet Volume 9.8 fL (7.4-10.4); Platelet Count 234 K/uL (130-400); RDW Coefficient of Variation 14.8 % (11.5-14.5); RDW Standard Deviation 49.1 fL (36.4-46.3); Red Blood Count 3.37 M/uL (4.2-5.4); White Blood Count 9.05 K/uL (4.8-10.8)
[2019-02-27] MEDS ORDERED: LEVOTHYROXINE SODIUM 50 MCG TABLET PO SCH (06:30)
[2019-02-27 06:52] LABS: Basophils # (auto) 0.01 K/uL (0-0.2); Basophils % (auto) 0.1 %; Immature Granulocytes # (auto) 0.01 K/uL (0.00-0.02); Immature Granulocytes % (auto) 0.1 %; Lymphocytes # (auto) 0.68 K/uL (1.2-3.4); Lymphocytes % (auto) 7.5 %; Monocytes # (auto) 0.49 K/uL (0.11-0.59); Monocytes % (auto) 5.4 %; Neutrophils # (auto) 7.86 K/uL (1.4-6.5); Neutrophils % (auto) 86.9 %
[2019-02-27 06:56] LABS: BUN Creatinine Ratio 12.4 (10-20); Calcium 8.2 mg/dl (8.5-10.1); Creatinine Clr Calc Pharmacy 44.1 ml/min; Est GFR (African American) 62.7; Est GFR (Non-African American) 54.1; Potassium 3.7 mmol/L (3.5-5.1)
[2019-02-27] MEDS: LABETALOL HCL 100 MG TAB PO SCH (08:23)
[2019-02-27] MEDS: MAGNESIUM OXIDE 400 MG TAB PO SCH (08:24)
[2019-02-27] MEDS: DOCUSATE SODIUM 100 MG CAP PO SCH (08:24)
--- NOTE | 2019-02-27 08:59 | Orthopedic Progress Note ---
Date of Service February 27, 2019 Assessment & Plan (1) Rotator cuff arthropathy of left shoulder: Overall she is doing as well as expected. She will be seen by physical therapy this morning for range of motion exercises. She can be discharged home later today with [facility] for pain control. [facility] is [facility]. She can follow-up with orthopedics in 2 weeks. Present on Admission?: Yes Subjective Della was seen and examined at bedside this morning. Overall she is doing very well. The nerve block is still working. She was able to get some sleep last night. She is no complaints. Physical Exam Musculoskeletal: On physical examination of the left shoulder, the dressing is clean and dry. She still has a lot of numbness in her left hand and is unable to extend her wrist. The block is still obviously working. She is wearing her sling as instructed. Results & Data Vital Signs (Past 12 Hours) Vital Signs Temp Pulse Pulse Resp BP Pulse Ox 02/27/19 07:24 36.7 C 80 17 124/75 94 02/27/19 03:31 36.5 C 79 16 105/69 91 02/26/19 23:13 36.5 C 84 16 104/69 93 Laboratory Results H & H 02/27/19 Range/Units 06:00 Hgb 10.0 L (12.0-16.0) g/dL Hct 31.1 L (37-47) % Coagulation 02/08/19 Range/Units 12:01 INR 1.0 (0.9-1.1) Diagnostic Findings Postoperative x-rays of the left shoulder show the prosthesis to be in anatomic alignment without any evidence of fracture, dislocation, or loosening.
[2019-02-27] MEDS ORDERED: PANTOprazole 40 MG TAB PO SCH (09:00)
[2019-02-27] MEDS ORDERED: POTASSIUM CHLORIDE 20 MEQ TABCR PO SCH (09:00)
[2019-02-27] MEDS ORDERED: SPIRONOLACTONE 25 MG TAB PO SCH (09:00)
[2019-02-27] MEDS ORDERED: ESCITALOPRAM OXALATE 20 MG TAB PO SCH (09:00)
[2019-02-27] MEDS ORDERED: PRAVASTATIN SOD 20 MG TAB PO SCH (09:00)
[2019-02-27] MEDS ORDERED: MULTIVITAMIN TAB PO SCH (09:00)
[2019-02-27] MEDS ORDERED: CeleBREX 200 MG CAP PO SCH (09:00)
[2019-02-27] MEDS ORDERED: FOLIC ACID 1 MG TAB PO SCH (09:00)
--- NOTE | 2019-02-27 09:01 | Discharge Summary ---
Date of Service February 27, 2019 Admission HPI Per Admitting Provider Tammy is a pleasant 68-year-old female who is been dealing with chronic increasing left shoulder pain. I have been treating her with serial injections, but the injections are no longer helping. She does have a history of a left rotator cuff repair done in 2008 by another provider. She also has a history of a right reverse shoulder arthroplasty done by another provider about 10 years ago. Unfortunately she continues to have a lot of left shoulder pain. After failing conservative treatment, she has elected proceed with a left reverse shoulder arthroplasty. Specialty Data Orthopedic H & H 02/27/19 Range/Units 06:00 Hgb 10.0 L (12.0-16.0) g/dL Hct 31.1 L (37-47) % Coagulation 02/08/19 Range/Units 12:01 INR 1.0 (0.9-1.1) Discharge Data Consultations 02/26/19 15:50 Consult Case Management - Discharge Planning Routine Procedures Performed Operation Date: 02/26/19 13:20 Actual Procedures p Left Reverse Total Shoulder Replacement(Left) - Sumit Ramriez DO Hospital Course (1) Rotator cuff arthropathy of left shoulder: On February 26 2019 Della arrived to [facility] in the hospital and underwent a left reverse shoulder arthritis without complication. She had a general anesthetic and a left interscalene nerve block. Postoperatively she was placed in arm sling and discharged to general orthopedic floors. Her hospital course is uneventful. On postop day #1 her H&H was stable and her pain was well controlled. She was able to participate well with physical therapy doing range of motion exercises. She was discharged home with [facility]. She will follow-up with orthopedics in 2 weeks. Discharge Instructions Home Medications Medication Instructions Recorded Confirmed cholecalciferol (vitamin D3) 400 400 units PO QPM 05/26/18 02/26/19 unit capsule escitalopram 20 mg tablet 20 mg PO QAM tab 05/26/18 02/26/19 fluticasone propionate 50 1 sprays INTNAS BID PRN gm 05/26/18 02/26/19 mcg/actuation nasal spray,suspension ipratropium bromide 17 2 puffs INH DAILY PRN gm 05/26/18 02/26/19 mcg/actuation HFA aerosol inhaler levothyroxine 50 mcg capsule 50 mcg PO QAM 05/26/18 02/26/19 loperamide 2 mg capsule 2 mg PO Q4H PRN 05/26/18 02/26/19 magnesium oxide 400 mg (241.3 mg 400 mg PO BID tab 05/26/18 02/26/19 magnesium) tablet montelukast 10 mg tablet 10 mg PO QPM 05/26/18 02/26/19 omeprazole 20 mg capsule,delayed 20 mg PO DAILY 05/26/18 02/26/19 release propylene glycol 0.6 % eye drops 1 % OP .as directed ml 05/26/18 02/26/19 spironolactone 25 mg tablet 25 mg PO QAM 05/26/18 02/26/19 folic acid 1 mg tablet 1 mg PO QAM 01/13/19 02/26/19 methotrexate sodium 2.5 mg tablet 15 mg PO .weekly tab 01/13/19 02/26/19 nortriptyline 25 mg capsule 25 mg PO HS cap 01/13/19 02/26/19 labetalol 100 mg PO BID 01/21/19 02/26/19 pravastatin 20 mg PO QAM 01/21/19 02/26/19 celecoxib [Celebrex] 200 mg PO DAILY 02/26/19 02/26/19 docusate sodium 100 mg PO BID PRN 02/26/19 02/26/19 potassium chloride 20 meq PO DAILY 02/26/19 02/26/19 prochlorperazine maleate 5 mg PO TID PRN 02/26/19 02/26/19 Previous Rx's Medication Instructions Recorded hydrocodone-acetaminophen [[place]] 1 tab PO Q6H PRN #40 tab 02/27/19
--- NOTE | 2019-02-27 12:07 | Anesthesiology Progress Note ---
Date of Service February 27, 2019 Anesthesia Post Procedure Vital Signs Vital Signs: Temp Pulse Pulse Pulse Resp BP Pulse Ox 02/27/19 09:16 36.7 C 80 80 84 17 124/75 94 02/27/19 07:24 36.7 C 80 17 124/75 94 02/27/19 03:31 36.5 C 79 16 105/69 91 02/26/19 23:13 36.5 C 84 16 104/69 93 02/26/19 20:43 83 102/70 02/26/19 20:18 36.9 C 81 15 106/68 92 02/26/19 18:25 36.7 C 83 17 109/69 92 02/26/19 17:25 89 16 111/71 91 02/26/19 16:25 36.5 C 77 16 135/82 94 02/26/19 15:56 36.8 C 81 16 133/84 96 02/26/19 15:25 36.7 C 82 16 123/82 96 02/26/19 15:15 80 16 138/88 100 02/26/19 15:05 36.3 C L 81 17 145/88 H 100 02/26/19 14:55 82 17 145/92 H 100 02/26/19 14:45 84 18 122/72 97 02/26/19 14:35 82 19 136/86 100 02/26/19 14:27 36.6 C 82 19 129/94 100 Pain Intensity Left Shoulder: Pain Intensity: 0 Notes Mental Status: alert / awake / arousable and participated in evaluation Patient Amnestic to Procedure: Yes Nausea / Vomiting: see Notes below Pain: adequately controlled Airway Patency, RR, SpO2: stable & adequate BP & HR: stable & adequate Hydration State: stable & adequate Anesthetic Complications: no major complications apparent and Pt Satisfied with anesthetic care
[2019-02-28] MEDS ORDERED: metHOTREXate sodium 2.5 MG TAB PO SCH (09:00)
== END 2019-02-27 11:20 | disposition home health service (06) | DRG 483 ==
LOC: ASU 10:50 → 3E 14:30

== ENCOUNTER 2021-05-30 11:58 | Inpatient (IN) ==
[2021-05-30] MEDS ORDERED: SODIUM CHLORIDE 0.9% 500 ML IV ONE ×2 (14:11→19:30)
[2021-05-30 14:39] LABS: Hemoglobin 8.5 g/dL (12.0-16.0); Mean Corpuscular Hemoglobin 32.4 pg (25-34); Mean Corpuscular Hgb Conc 30.4 g/dL (32-36); Mean Corpuscular Volume 106.9 fL (80-100); Mean Platelet Volume 10.3 fL (7.4-10.4); Platelet Count 651 K/uL (130-400); RDW Coefficient of Variation 17.7 % (11.5-14.5); RDW Standard Deviation 67.7 fL (36.4-46.3); Red Blood Count 2.62 M/uL (4.2-5.4); White Blood Count 13.64 K/uL (4.8-10.8)
--- NOTE | 2021-05-30 14:48 | XRay Report ---
SINGLE VIEW CHEST CLINICAL HISTORY: Atypical chest pain. FINDINGS: An AP, portable, upright chest radiograph is compared to study dated 12/29/2020. The cardiom ediastinal silhouette is unremarkable noting atherosclerotic calcification of the thoracic aorta. The re is mild bibasilar atelectasis. The lungs and pleural spaces are otherwise clear. No pneumothorax i s seen. The skeletal structures are osteopenic. The bony thorax is grossly intact. 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 IMPRESSION: No active disease in the chest. ACT 112: Negative or not required by law. Electronically signed by: Samm Ferrer M.D. 05/30/2021 2:47 PM
[2021-05-30 14:59] LABS: Alanine Aminotransferase 20 U/L (12-78); Albumin Level 1.9 gm/dl (3.4-5.0); Aspartate Aminotransferase 32 U/L (15-37); BUN Creatinine Ratio 18.1 (10-20); Bilirubin Direct 0.3 mg/dl (0-0.2); Blood Urea Nitrogen 18 mg/dl (7-18); Calcium 8.7 mg/dl (8.5-10.1); Carbon Dioxide 25 mmol/L (21-32); Chloride 103 mmol/L (98-107); Est GFR (African American) 65.8 ml/min; Est GFR (Non-African American) 56.8 ml/min; Glucose 90 mg/dl (70-99); Magnesium 2.3 mg/dl (1.8-2.4); Sodium 136 mmol/L (136-145)
[2021-05-30 15:04] LABS: Albumin Globulin Ratio 0.5 (0.9-2); Alkaline Phosphatase 185 U/L (45-117); Bilirubin,Total 0.6 mg/dl (0.2-1); INR 1.2 (0.9-1.1); Partial Thromboplastin Ratio 1.2; Phosphorus 3.5 mg/dl (2.5-4.9); Prothrombin Time 11.7 Seconds (9.0-12.0); Total Protein 5.9 gm/dl (6.4-8.2); Troponin I < 0.015 ng/ml (0-0.045)
[2021-05-30 15:16] LABS: ANC (manual) 5.81 K/uL (1.4-6.5); Lymphocytes # (manual) 3.91 K/uL (1.2-3.4); Lymphocytes % (manual) 28.7 %; Macrocytosis Present; Monocytes # (manual) 0.83 K/uL (0.11-0.59); Monocytes % (manual) 6.1 %; Neutrophils # (manual) 5.81 K/uL (1.4-6.5); Neutrophils % (manual) 42.6 %; Ovalocytes 1+; Polychromasia 1+; Reactive Lymphocytes # (manual) 3.08 K/uL; Reactive Lymphocytes % (manual) 22.6 %; Tear Drop Cells 1+
--- NOTE | 2021-05-30 19:08 | Emergency Department Note ---
Impression & Plan Hypoxia, Hypotension, Lab test positive for detection of COVID-19 virus, Anemia ED Provider Note NAME: CANDELARIO MOBLEY AGE: 71 SEX: F ARRIVES VIA: Walk-In INFORMANT: Patient, ED PROVIDER(S): Brian Norwood MD CHIEF COMPLAINT: Low blood pressure, weakness. PLAN: Disposition: Admit MEDICAL DECISION MAKING: The patient is a pleasant 71-year-old woman with a past medical history of CAD which she reports was diagnosed recently in preparation for elective back surgery who was noted she had wall motion abnormalities on her ultrasound of her heart and subsequently had a catheterization per her report which demonstrated blockages which were not amenable to stent and she was considered high risk for CABG. She reports she has been managed medically for this. She is on Metoprolol and Lisinopril. She reports she also has not had any symptoms of chest pain related to this. She reports she has intermittent episodes of shortness of b reath which she attributes to her asthma. She denies any recent fevers, chills, cough, nausea, vomiting, diarrhea. She does report that since being placed on new medications to manage her blood pressure that she has noted that it is low. Her reports that he has taken her blood pressure numerous times and this morning was 70s/50s. She denies feeling as though she is going to pass out but again reports weakness. On arrival the patient is fatigued appearing no acute stress, afebrile with blood pressure initially 70/50s and vital signs otherwise stable. She is mentating normally. Upon arriving to her room the patient's blood pressure was 90s/60s. EKG without overt acute ischemia. Chest x-ray negative for acute cardiopulmonary process. WBC 13.6K nonspecific. H/H slightly decreased from March. Platelets 650K, mild civic. Chemistry with out metabolic acid 6. Electrolytes and LFTs without abnormality. Troponin negative/undetectable. Patient's COVID-19 PCR was positive. We did speak at length regarding this finding and the patient reports she did test positive for COVID-19 at the end of January following her second dose in her immunization series. She reports at that time she had several days of bronchitis symptoms. She reports she covered eventfully from this. She further adds that she had a "rapid test a couple of weeks ago that was negative. I suspect this test was likely an antigen test and had she had a PCR it is possible that this would have been positive as well and so her test today could indicate residual nonreplicating viral shedding. However it is unclear at this time given the patient does report intermittent flares of her "asthma". The patient did report feeling improved after IV fluid hydration with blood pressure improved to the 100s/60s. However, her O2 saturation was noted to go down to the mid to upper 80s on room air and was placed on nasal cannula. She agrees with plan for admission. Case was discussed with Dr. Duggan, [facility] hospitalist, who will evaluate the patient for admission. Triage Nursing notes reviewed and agree them. Prior medical records reviewed Vital Signs: reviewed and remarkable for hypotension. Differential diagnosis: Infection, dehydration, metabolic abnormality, hypo/hyperglycemia, electrolyte disturbance, anemia, hypoxia, cardiac sources, intracerebral event, toxicologic, neurologic, as well as other pathologies. ER treatment provided: See below. Diagnostics interpreted by me: ECG: Normal sinus rhythm, 62 bpm, no ectopy, Incomplete left bundle block, Nonspecific ST and T wave abnormality, no overt ST elevation, no sgarbossa criteria. Cardiac Monitoring: An order for continuous cardiac monitoring was placed and demonstrated normal sinus rhythm, 62 bpm, no ectopy. Laboratory studies: See below Imaging studies: See below Consultation(s): Case was discussed with Dr. Duggan [facility] hospitalist, who will evaluate the patient for admission. HPI: The patient is a pleasant 71-year-old woman with a past medical history of CAD which she reports was diagnosed recently in preparation for elective back surgery who was noted she had wall motion abnormalities on her ultrasound of her heart and subsequently had a catheterization per her report which demonstrated blockages which were not amenable to stent and she was considered high risk for CABG. She reports she has been managed medically for this. She reports she also has not had any symptoms of chest pain related to this. She reports she has intermittent episodes of shortness of breath which she attributes to her asthma. She denies any recent fevers, chills, cough, nausea, vomiting, diarrhea. She does report that since being placed on new medications to manage her blood pressure that she has noted that it is low. Her reports that he has taken her blood pressure numerous times and this morning was 70s/50s. She denies feeling as though she is going to pass out but again reports weakness. ROS: See above HPI for pertinent positives & negatives. A total of 10 systems reviewed and were otherwise negative. PAST MEDICAL HISTORY:See Below PAST SURGICAL HISTORY:See Below FAMILY HISTORY:See Below SOCIAL HISTORY:See Below HOME MEDICATIONS:See Below ALLERGIES:See Below VITALS:See Below PHYSICAL EXAMINATION: GENERAL: Awake, alert, fatigued-appearing, in no distress HENT: Normocephalic, atraumatic. Oropharynx with dry mucous membranes and otherwise unremarkable. EYES: Normal conjunctiva. Sclera non-icteric. NECK: Supple. No nuchal rigidity. FROM. No JVD. RESPIRATORY: Clear to auscultation. CARDIAC: Regular rate, normal rhythm. Extremities warm and well perfused. Pulses equal. ABDOMEN: Soft, non-distended. No tenderness to palpation. No rebound or guarding. No masses. RECTAL: Deferred. MUSCULOSKELETAL: Chest examination reveals no tenderness. The back is symmetrical on inspection without obvious abnormality. There is no CVA tenderness to palpation. No joint edema. LOWER EXTREMITIES: Calves are equal size bilaterally and non-tender. No edema. No discoloration. NEURO: Normal sensorium. No sensory or motor deficits noted. SKIN: No rash or jaundice noted. Brian Norwood MD Past Med/Surg History Medical History Allergic rhinitis Anemia Chronic, hgb baseline 10-11 range per chart review Anxiety Asthma stable Chronic back pain Coronary artery disease cardiac catheterization -02/22/2021:Impression: 1. Severe CAD involving ostial/proximal LAD (100%), filling via left to left and right to left collaterals. 2. Otherwise nonobstructive CAD involving the mid circumflex. 3. No aortic stenosis. 4. Normal left-sided filling pressure. Depression GERD (gastroesophageal reflux disease) controlled History of right breast cancer s/p lumpectomy (1969)- no chemo or xrt Hx of fracture Right shoulder AC joint fracture (10/2020) due to traumatic event > healing without surgical intervention Hyperlipidemia Hypertension Hypothyroidism IBS (irritable bowel syndrome) Insomnia Ischemic cardiomyopathy Lumbar facet joint syndrome Lumbar spinal stenosis Osteoarthritis Rheumatoid arthritis On Methotrexate Sacroiliitis Steroid-induced osteoporosis Surgical History H/O arthroscopy of shoulder L shoulder H/O cataract extraction R/L eye History of arthroscopy of left knee History of breast biopsy History of foot surgery R/L History of lumpectomy of right breast History of right knee joint replacement History of tonsillectomy History of total abdominal hysterectomy and bilateral salpingo-oophorectomy d/t endometriosis S/P ORIF (open reduction internal fixation) fracture Left ankle S/p reverse total shoulder arthroplasty Left reverse TSA (02/26/19): Grade view 2, MAC#3, ETT 7 + PNB at [facility] (scope patch used) Family History Grandmother (Paternal) Family history of diabetes mellitus Grandmother (Maternal) Family history of diabetes mellitus Father Coronary heart disease Alzheimer disease Myocardial infarction Osteoarthritis COPD (chronic obstructive pulmonary disease) Lung disease Mother Myocardial infarction COPD (chronic obstructive pulmonary disease) Other No family history of adverse response to anesthesia Denies family history of Ovarian cancer Prostate cancer Breast cancer Colorectal cancer Social History Smoking Status: Never smoker Second Hand Exposure: No; Hx Alcohol Use: No Hx Substance Use: No Preferred Language: Swedish Communication Ability: Effective Visual Impairment: Limited Hearing Ability: Normal Manager Of Planning Required: No Beliefs That Will Affect Care: None marital status: Current Living Situation: Spouse and Family Current Living Situation Comment: Lives with , son and granddaughter current occupational status: retired How many Children do You have: 2 Other Information That Helps Us Care for You: No Feels Safe at Home: Yes Childhood Exposure to Second-Hand Smoke: Yes caffeine: Yes (coffee) during the past year weight has: remained stable Dental Care, Regularly: No Physical Activity Frequency: Daily Physical Activity Frequency Comment: chores Seatbelt Use: always Sunscreen Use: No Assistive Devices: Denture - Upper and Wheelchair Allergies Allergies Allergy/AdvReac Type Severity Reaction Status Date / Time bacitracin Allergy Intermediate Hives, Verified 05/30/21 16:06 blisters clavulanic acid Allergy Intermediate Hives Verified 05/30/21 16:06 diphenhydramine Allergy Intermediate Hives Verified 05/30/21 16:06 iodine Allergy Intermediate Hives Verified 05/30/21 16:06 ketorolac Allergy Intermediate Hives Verified 05/30/21 16:06 meclofenamic acid Allergy Intermediate Hives Verified 05/30/21 16:06 neomycin Allergy Intermediate Hives, Verified 05/30/21 16:06 blisters NSAIDS (Non-Steroidal Allergy Intermediate Hives Verified 05/30/21 16:06 Anti-Inflamma (tolerates Celebrex) oxycodone Allergy Intermediate Hives Verified 05/30/21 16:06 (tolerates Vicodin) polymyxin B Allergy Intermediate Hives, Verified 05/30/21 16:06 blisters quinine Allergy Intermediate Hives Verified 05/30/21 16:06 Sulfa (Sulfonamide Allergy Intermediate Hives Verified 05/30/21 16:06 Antibiotics) tramadol Allergy Intermediate Hives, Verified 05/30/21 16:06 itching adhesive Allergy Mild Rash Verified 05/30/21 16:07 latex Allergy Mild Rash Verified 05/30/21 16:06 povidone-iodine Allergy Mild Rash Verified 05/30/21 16:07 doxycycline Allergy Anaphylaxis Unverified 05/30/21 15:04 meperidine AdvReac Intermediate N/V Verified 05/30/21 16:07 prednisone AdvReac Intermediate Made Verified 05/30/21 16:07 "bones soft" aspirin AdvReac Mild N/V Verified 05/30/21 16:08 Home Meds Home Medications Medication Instructions Recorded Confirmed cholecalciferol (vitamin D3) 10 400 units PO QPM 05/26/18 05/30/21 mcg (400 unit) capsule fluticasone propionate 50 1 sprays INTNAS BID PRN gm 05/26/18 05/30/21 mcg/actuation nasal spray,suspension (Flonase Allergy Relief) loperamide 2 mg capsule 2 mg PO Q4H PRN 05/26/18 05/30/21 magnesium oxide 400 mg (241.3 mg 400 mg PO BID tab 05/26/18 05/30/21 magnesium) tablet docusate sodium 100 mg capsule 100 mg PO BID PRN 02/26/19 05/30/21 zoledronic acid 5 mg/100 mL in 5 mg/kg IV YEARLY ml 03/02/19 05/30/21 mannitol 5 %-water intravenous piggybck propylene glycol 0.6 % eye drops 1 % OP UD PRN ml 03/23/19 05/30/21 (Systane Complete) silver sulfadiazine 1 % topical 1 applic TOPICAL BID PRN 02/07/20 09/29/21 cream aspirin 81 mg tablet,delayed 81 mg PO DAILY 05/30/21 05/30/21 release Previous Rx's Medication Instructions Recorded ipratropium bromide 17 2 puffs INH DAILY PRN #12.9 gm 04/29/19 mcg/actuation HFA aerosol inhaler triamcinolone acetonide 0.5 % 1 applic TOPICAL BID PRN #60 g 08/01/20 topical cream escitalopram oxalate 20 mg tablet 20 mg PO QAM #90 tab 11/03/20 (Lexapro) metoprolol succinate 100 mg 150 mg PO DAILY #45 tab 02/22/21 tablet,extended release 24 hr nitroglycerin 0.4 mg sublingual 0.4 mg SUBLINGUAL Q5M PRN #25 tab 02/22/21 tablet (Nitrostat) nortriptyline 10 mg capsule 10 mg PO QAM #90 cap 02/27/21 nortriptyline 25 mg capsule 25 mg PO HS #90 cap 03/12/21 levothyroxine 75 mcg tablet 75 mcg PO QAM #90 tab 03/15/21 Singulair 10 mg tablet 10 mg PO QPM #90 tab NS 04/17/21 (montelukast) atorvastatin 40 mg tablet 40 mg PO DAILY #90 tab 05/25/21 Results & Data (ED) Vital Signs Vital Signs - 24 hr 05/30/21 12:10 05/30/21 14:02 05/30/21 14:06 Temperature 36.9 C Temperature Source Skin Pulse Rate 67 59 L Pulse Rate [Right Finger] 68 Pulse Rate from SpO2 Sensor 59 L Respiratory Rate 18 24 20 Respiratory Effort / Characteristics Non-Labored Respiratory Depth Normal Blood Pressure 76/54 L 98/66 L Blood Pressure [Right Arm] 98/66 L Blood Pressure Mean 61 76 Blood Pressure Mean [Right Arm] 76 Pulse Oximetry 97 91 95 Oxygen Delivery Method Room Air Oxygen Flow Rate Sepsis Recent Fever Within 48 Hours No Sepsis New/Unexplained Change in Mental Status No Sepsis Action Taken by Nursing No Action Required Oxygen Flow Rate - Titration Pulse Oximetry Post Tiitration 05/30/21 14:30 05/30/21 14:31 05/30/21 14:37 Temperature Temperature Source Pulse Rate 64 Pulse Rate [Right Finger] 60 Pulse Rate from SpO2 Sensor 64 Respiratory Rate 20 24 Respiratory Effort / Characteristics Non-Labored Respiratory Depth Normal Blood Pressure 84/44 L Blood Pressure [Right Arm] 84/44 L Blood Pressure Mean 57 Blood Pressure Mean [Right Arm] 57 Pulse Oximetry 92 94 Oxygen Delivery Method Room Air Room Air Oxygen Flow Rate Sepsis Recent Fever Within 48 Hours Sepsis New/Unexplained Change in Mental Status Sepsis Action Taken by Nursing Oxygen Flow Rate - Titration Pulse Oximetry Post Tiitration 05/30/21 15:00 05/30/21 15:27 05/30/21 15:30 Temperature Temperature Source Pulse Rate 62 63 Pulse Rate [Right Finger] 63 Pulse Rate from SpO2 Sensor 62 63 Respiratory Rate 19 22 20 Respiratory Effort / Characteristics Non-Labored Respiratory Depth Normal Blood Pressure 99/60 L 90/54 L Blood Pressure [Right Arm] 90/48 L Blood Pressure Mean 73 66 Blood Pressure Mean [Right Arm] 62 Pulse Oximetry 92 92 89 L Oxygen Delivery Method Room Air Oxygen Flow Rate Sepsis Recent Fever Within 48 Hours Sepsis New/Unexplained Change in Mental Status Sepsis Action Taken by Nursing Oxygen Flow Rate - Titration Pulse Oximetry Post Tiitration 05/30/21 16:00 05/30/21 16:30 05/30/21 17:00 Temperature Temperature Source Pulse Rate 63 61 62 Pulse Rate [Right Finger] 62 62 91 H Pulse Rate from SpO2 Sensor 63 61 62 Respiratory Rate 20 18 20 Respiratory Effort / Characteristics Respiratory Depth Blood Pressure 83/61 L 103/66 101/56 L Blood Pressure [Right Arm] 83/61 L 103/66 101/56 L Blood Pressure Mean 68 78 71 Blood Pressure Mean [Right Arm] 68 78 71 Pulse Oximetry 90 93 92 Oxygen Delivery Method Room Air Oxygen Flow Rate Sepsis Recent Fever Within 48 Hours Sepsis New/Unexplained Change in Mental Status Sepsis Action Taken by Nursing Oxygen Flow Rate - Titration Pulse Oximetry Post Tiitration 05/30/21 17:30 05/30/21 17:42 05/30/21 17:56 Temperature Temperature Source Pulse Rate 61 Pulse Rate [Right Finger] 58 L Pulse Rate from SpO2 Sensor 61 Respiratory Rate 21 22 Respiratory Effort / Characteristics Respiratory Depth Normal Blood Pressure 99/56 L Blood Pressure [Right Arm] 125/66 Blood Pressure Mean 70 Blood Pressure Mean [Right Arm] 85 Pulse Oximetry 94 89 L 97 Oxygen Delivery Method Room Air Nasal Cannula Oxygen Flow Rate 2 Sepsis Recent Fever Within 48 Hours Sepsis New/Unexplained Change in Mental Status Sepsis Action Taken by Nursing Oxygen Flow Rate - Titration 2 Pulse Oximetry Post Tiitration 97 09/29/21 18:00 05/30/21 18:30 05/30/21 19:00 Temperature Temperature Source Pulse Rate 59 L 63 Pulse Rate [Right Finger] Pulse Rate from SpO2 Sensor 59 L 62 Respiratory Rate 20 19 Respiratory Effort / Characteristics Respiratory Depth Blood Pressure 113/64 109/60 97/83 L Blood Pressure [Right Arm] Blood Pressure Mean 80 76 87 Blood Pressure Mean [Right Arm] Pulse Oximetry 99 99 Oxygen Delivery Method Oxygen Flow Rate Sepsis Recent Fever Within 48 Hours Sepsis New/Unexplained Change in Mental Status Sepsis Action Taken by Nursing Oxygen Flow Rate - Titration Pulse Oximetry Post Tiitration 05/30/21 19:30 05/30/21 19:35 05/30/21 20:00 Temperature Temperature Source Pulse Rate 62 60 Pulse Rate [Right Finger] Pulse Rate from SpO2 Sensor 60 60 Respiratory Rate 23 23 Respiratory Effort / Characteristics Respiratory Depth Blood Pressure 103/55 L Blood Pressure [Right Arm] Blood Pressure Mean 71 Blood Pressure Mean [Right Arm] Pulse Oximetry 99 98 99 Oxygen Delivery Method Nasal Cannula Oxygen Flow Rate 1.5 Sepsis Recent Fever Within 48 Hours Sepsis New/Unexplained Change in Mental Status Sepsis Action Taken by Nursing Oxygen Flow Rate - Titration Pulse Oximetry Post Tiitration 05/30/21 20:30 05/30/21 21:00 05/30/21 21:30 Temperature Temperature Source Pulse Rate 60 Pulse Rate [Right Finger] Pulse Rate from SpO2 Sensor 59 L Respiratory Rate 23 Respiratory Effort / Characteristics Respiratory Depth Blood Pressure 107/62 102/55 L Blood Pressure [Right Arm] Blood Pressure Mean 77 70 Blood Pressure Mean [Right Arm] Pulse Oximetry 96 Oxygen Delivery Method Oxygen Flow Rate Sepsis Recent Fever Within 48 Hours Sepsis New/Unexplained Change in Mental Status Sepsis Action Taken by Nursing Oxygen Flow Rate - Titration Pulse Oximetry Post Tiitration Laboratory Data Attestation: I reviewed the patient's lab results. Result diagrams: 05/30/21 14:13 05/30/21 14:13 Lab Results 05/30/21 05/30/21 05/30/21 Range/Units 14:11 14:13 14:13 WBC 13.64 H (4.8-10.8) K/uL RBC 2.62 L (4.2-5.4) M/uL Hgb 8.5 L (12.0-16.0) g/dL Hct 28.0 L (37-47) % MCV 106.9 H (80-100) fL MCH 32.4 (25-34) pg MCHC 30.4 L (32-36) g/dL RDW Std Deviation 67.7 H (36.4-46.3) fL RDW Coeff of Ender 17.7 H (11.5-14.5) % Plt Count 651 H (130-400) K/uL MPV 10.3 (7.4-10.4) fL Reticulocyte % (Auto) Cancelled 9.7 H Reticulocyte # Cancelled 0.25 H Neutrophils % (Manual) 42.6 % Lymphocytes % (Manual) 28.7 % Reactive Lymphs % (Man) 22.6 % Monocytes % (Manual) 6.1 % Neutrophils # (Manual) 5.81 (1.4-6.5) K/uL Total Absolute Neuts 5.81 (1.4-6.5) K/uL Lymphocytes # (Manual) 3.91 H (1.2-3.4) K/uL Reactive Lymphs # 3.08 K/uL Total Abs Lymphocytes 7.00 H (1.2-3.4) K/uL Monocytes # (Manual) 0.83 H (0.11-0.59) K/uL Polychromasia 1+ Macrocytosis Present Tear Drop Cells 1+ Ovalocytes 1+ PT 11.7 (9.0-12.0) Seconds INR 1.2 H (0.9-1.1) APTT 31.0 (21.0-31.0) Seconds PTT Ratio 1.2 Sodium (136-145) mmol/L Potassium (3.5-5.1) mmol/L Chloride (98-107) mmol/L Carbon Dioxide (21-32) mmol/L Anion Gap (3-11) BUN (7-18) mg/dl Creatinine (0.6-1.2) mg/dl Est Cr Clr Drug Dosing Est GFR ( Amer) ml/min Est GFR (Non-Af Amer) ml/min BUN/Creatinine Ratio (10-20) Glucose (70-99) mg/dl Calcium (8.5-10.1) mg/dl Phosphorus (2.5-4.9) mg/dl Magnesium (1.8-2.4) mg/dl Iron (35-150) mcg/dl TIBC (250-450) mcg/dl Transferrin (200-360) mg/dl Ferritin (8-388) ng/ml Total Bilirubin (0.2-1) mg/dl Direct Bilirubin (0-0.2) mg/dl AST (15-37) U/L ALT (12-78) U/L Alkaline Phosphatase (45-117) U/L Troponin I (0-0.045) ng/ml Total Protein (6.4-8.2) gm/dl Albumin (3.4-5.0) gm/dl Globulin (2.5-4.0) gm/dl Albumin/Globulin Ratio (0.9-2) COVID-19 Eval Order SARS-CoV-2 (PCR) (Negative) 05/30/21 05/30/21 05/30/21 Range/Units 14:13 14:32 15:25 WBC (4.8-10.8) K/uL RBC (4.2-5.4) M/uL Hgb (12.0-16.0) g/dL Hct (37-47) % MCV (80-100) fL MCH (25-34) pg MCHC (32-36) g/dL RDW Std Deviation (36.4-46.3) fL RDW Coeff of Ender (11.5-14.5) % Plt Count (130-400) K/uL MPV (7.4-10.4) fL Reticulocyte % (Auto) Reticulocyte # Neutrophils % (Manual) % Lymphocytes % (Manual) % Reactive Lymphs % (Man) % Monocytes % (Manual) % Neutrophils # (Manual) (1.4-6.5) K/uL Total Absolute Neuts (1.4-6.5) K/uL Lymphocytes # (Manual) (1.2-3.4) K/uL Reactive Lymphs # K/uL Total Abs Lymphocytes (1.2-3.4) K/uL Monocytes # (Manual) (0.11-0.59) K/uL Polychromasia Macrocytosis Tear Drop Cells Ovalocytes PT (9.0-12.0) Seconds INR (0.9-1.1) APTT (21.0-31.0) Seconds PTT Ratio Sodium 136 (136-145) mmol/L Potassium 4.0 (3.5-5.1) mmol/L Chloride 103 (98-107) mmol/L Carbon Dioxide 25 (21-32) mmol/L Anion Gap 8.0 (3-11) BUN 18 (7-18) mg/dl Creatinine 1.01 (0.6-1.2) mg/dl Est Cr Clr Drug Dosing Not Reportable Est GFR ( Amer) 65.8 ml/min Est GFR (Non-Af Amer) 56.8 ml/min BUN/Creatinine Ratio 18.1 (10-20) Glucose 90 (70-99) mg/dl Calcium 8.7 (8.5-10.1) mg/dl Phosphorus 3.5 (2.5-4.9) mg/dl Magnesium 2.3 (1.8-2.4) mg/dl Iron 34 L (35-150) mcg/dl TIBC 169 L (250-450) mcg/dl Transferrin 155 L (200-360) mg/dl Ferritin 307.1 (8-388) ng/ml Total Bilirubin 0.6 (0.2-1) mg/dl Direct Bilirubin 0.3 H (0-0.2) mg/dl AST 32 (15-37) U/L ALT 20 (12-78) U/L Alkaline Phosphatase 185 H (45-117) U/L Troponin I < 0.015 (0-0.045) ng/ml Total Protein 5.9 L (6.4-8.2) gm/dl Albumin 1.9 L (3.4-5.0) gm/dl Globulin 4.0 (2.5-4.0) gm/dl Albumin/Globulin Ratio 0.5 L (0.9-2) COVID-19 Eval Order Covid19 at [facility] SARS-CoV-2 (PCR) (Negative) 05/30/21 Range/Units 15:25 WBC (4.8-10.8) K/uL RBC (4.2-5.4) M/uL Hgb (12.0-16.0) g/dL Hct (37-47) % MCV (80-100) fL MCH (25-34) pg MCHC (32-36) g/dL RDW Std Deviation (36.4-46.3) fL RDW Coeff of Ender (11.5-14.5) % Plt Count (130-400) K/uL MPV (7.4-10.4) fL Reticulocyte % (Auto) Reticulocyte # Neutrophils % (Manual) % Lymphocytes % (Manual) % Reactive Lymphs % (Man) % Monocytes % (Manual) % Neutrophils # (Manual) (1.4-6.5) K/uL Total Absolute Neuts (1.4-6.5) K/uL Lymphocytes # (Manual) (1.2-3.4) K/uL Reactive Lymphs # K/uL Total Abs Lymphocytes (1.2-3.4) K/uL Monocytes # (Manual) (0.11-0.59) K/uL Polychromasia Macrocytosis Tear Drop Cells Ovalocytes PT (9.0-12.0) Seconds INR (0.9-1.1) APTT (21.0-31.0) Seconds PTT Ratio Sodium (136-145) mmol/L Potassium (3.5-5.1) mmol/L Chloride (98-107) mmol/L Carbon Dioxide (21-32) mmol/L Anion Gap (3-11) BUN (7-18) mg/dl Creatinine (0.6-1.2) mg/dl Est Cr Clr Drug Dosing Est GFR ( Amer) ml/min Est GFR (Non-Af Amer) ml/min BUN/Creatinine Ratio (10-20) Glucose (70-99) mg/dl Calcium (8.5-10.1) mg/dl Phosphorus (2.5-4.9) mg/dl Magnesium (1.8-2.4) mg/dl Iron (35-150) mcg/dl TIBC (250-450) mcg/dl Transferrin (200-360) mg/dl Ferritin (8-388) ng/ml Total Bilirubin (0.2-1) mg/dl Direct Bilirubin (0-0.2) mg/dl AST (15-37) U/L ALT (12-78) U/L Alkaline Phosphatase (45-117) U/L Troponin I (0-0.045) ng/ml Total Protein (6.4-8.2) gm/dl Albumin (3.4-5.0) gm/dl Globulin (2.5-4.0) gm/dl Albumin/Globulin Ratio (0.9-2) COVID-19 Eval Order SARS-CoV-2 (PCR) POSITIVE A* (Negative) Administered Medications Discontinued Medications Sodium Chloride (Nss) 500 mls @ 999 mls/hr IV .Q31M ONE Stop: 05/30/21 14:41 Last Infusion: 05/30/21 15:26 Dose: 0 mls/hr Documented by: [id number] Admin: 05/30/21 14:38 Dose: 999 mls/hr Documented by: [id number] Sodium Chloride (Nss) 500 mls @ 999 mls/hr IV .Q31M ONE Stop: 05/30/21 20:00 Last Admin: 05/30/21 19:34 Dose: 999 mls/hr Documented by: [id number] Imaging Data Radiologist's Impression: Chest X-Ray 05/30/21 14:11 SINGLE VIEW CHEST CLINICAL HISTORY: Atypical chest pain. FINDINGS: An AP, portable, upright chest radiograph is compared to study dated 12/29/2020. The cardiomediastinal silhouette is unremarkable noting atherosclerotic calcification of the thoracic aorta. There is mild bibasilar a telectasis. The lungs and pleural spaces are otherwise clear. No pneumothorax is seen. The skeletal structures are osteopenic. The bony thorax is grossly intact. 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 IMPRESSION: No active disease in the chest. ACT 112: Negative or not required by law. Electronically signed by: Samm Ferrer M.D. 05/30/2021 2:47 PM Discharge Plan Visit Data Chief Complaint: Hypotension Stated Complaint: BLOOD PRESSURE SPIKING ED Provider: Brian Norwood Discharge Problem: Hypoxia, Hypotension, Lab test positive for detection of COVID-19 virus, Anemia Forms Stand Alone Forms: [facility] Prescriptions Prescriptions: No Action loperamide 2 mg capsule 2 mg PO Q4H PRN (Reason: loose stool) RF: 0 magnesium oxide 400 mg (241.3 mg magnesium) tablet 400 mg PO BID RF: 0 fluticasone propionate [Flonase Allergy Relief] 50 mcg/actuation spray,suspension 1 sprays INTNAS BID PRN (Reason: Nasal Congestion) RF: 0 cholecalciferol (vitamin D3) 400 unit capsule 400 units PO QPM RF: 0 Systane Complete 0.6 % drops 1 % OP UD PRN (Reason: Dry Eye(S)) RF: 0 ipratropium bromide 17 mcg/actuation HFA aerosol inhaler 2 puffs INH DAILY PRN (Reason: shortness of breath or wheezing) Qty: 12.9 RF: 0 triamcinolone acetonide 0.5 % cream 1 applic topical BID PRN (Reason: skin irritation) Qty: 60 RF: 1 escitalopram oxalate [Lexapro] 20 mg tablet 20 mg PO QAM Qty: 90 RF: 1 nortriptyline 10 mg capsule 10 mg PO QAM Qty: 90 RF: 1 levothyroxine 75 mcg tablet 75 mcg PO QAM Qty: 90 RF: 1 montelukast [Singulair] 10 mg tablet 10 mg PO QPM Qty: 90 RF: 1 atorvastatin 40 mg tablet 40 mg PO DAILY Qty: 90 RF: 3 zoledronic [id number] 5 mg/100 mL piggyback 5 mg/kg IV YEARLY RF: 0 nortriptyline 25 mg capsule 25 mg PO HS Qty: 90 RF: 3 docusate sodium 100 mg Capsule 100 mg PO BID PRN (Reason: Constipation) RF: 0 silver sulfadiazine 1 % cream 1 applic topical BID PRN (Reason: Rash) RF: 0 nitroglycerin [Nitrostat] 0.4 mg Tablet, Sublingual 0.4 mg sublingual Q5M PRN (Reason: chest pain) Qty: 25 RF: 3 metoprolol succinate 100 mg Tablet Extended Release 24 Hr 150 mg PO DAILY Qty: 45 RF: 5 aspirin [Aspir-Low] 81 mg Tablet,Delayed Release (Dr/Ec) 81 mg PO DAILY RF: 0 Referrals Referrals: Tayla Kent DO [Primary Care Provider] - Discharge Problem: Hypotension Qualifiers: Hypotension type: unspecified hypotension type Qualified Code(s): I95.9 - Hypotension, unspecified
[2021-05-30 20:26] LABS: Ferritin 307.1 ng/ml (8-388)
[2021-05-30 20:46] LABS: Reticulocyte % 9.7 % (0.5-2.0); Reticulocytes # 0.25 10^6/uL (0.02-0.10)
--- NOTE | 2021-05-30 21:48 | History & Physical Report ---
Date of Service May 30, 2021 Assessment & Plan (1) Anemia: Plan: Tammy Caceres is a 71-year-old female with past medical history significant for coronary artery disease, hypertension hyperlipidemia, hypothyroidism, GERD, and osteoporosis; who presents for concerns of low blood pressure throughout the last day with associated weakness for the last several weeks. Anemia: -Patient presented with hemoglobin of 8.5 as compared to last week with check of 10.2 -No apparent source of acute blood loss -Despite this had recheck which demonstrated continued blood loss with hemoglobin of 7.1 -Two-physician consent on paperwork for transfusions given positive COVID-19 status however patient expressed agreement to transfusions -CT abdomen pelvis with IV contrast did not demonstrate source of GI bleed -Hemoccult pending -Repeat Hgb prior to transfusions in a.m. demonstrating consistent levels of 7.2 -Started on Protonix 40 mg IV twice daily given concerns for GI loss -Macrocytic with low folate and normal B12 COVID-19: -Positive COVID-19 test on admission -While this does not appear to be an active COVID-19 infection requiring treatment but potentially a reactivation of previous disease given correlation with recent activation of dormant shingles infection -Maintain on COVID-19 precautions Hypotension: -Questionable relationship of hypotension to anemia with acute blood loss versus reduced oral intake over the last 2 weeks given exacerbation of trigeminal neuralgia -Responsive to fluid -Replete fluids as above Diet: Heart healthy CODE STATUS: Conditional code (DNI) DVT prophylaxis: Deferred at this time due to acute blood loss anemia (2) COVID-19: (3) Hyperlipidemia: (4) Hypotension: History of Present Illness Primary Care Provider: Tayla Kent DO Tammy Caceres is a 71-year-old female with past medical history significant for coronary artery disease, hypertension hyperlipidemia, hypothyroidism, GERD, and osteoporosis; who presents for concerns of low blood pressure throughout the last day with associated weakness for the last several weeks. Otherwise has been feeling relatively well, with the exception only of a recent flare of her trigeminal neuralgia due to shingles with some herpetic lesions on her tongue. This started about 2 weeks ago when she completed treatment and has felt much better other than feeling weak over the last several days. Did have COVID-19 earlier in this year in October, and currently does not feel similarly to how she had previously felt. Did have a negative COVID-19 tests between now and then. Presently denies any nausea, vomiting, abdominal pain, diarrhea, dark black tarry stools, or bright red blood per rectum. Had a colonoscopy some years ago, and during that time she was told she had diverticulitis as well as had external hemorrhoids but did not need repeat colonoscopy. Allergies Allergy/AdvReac Type Severity Reaction Status Date / Time bacitracin Allergy Intermediate Hives, Verified 05/30/21 16:06 blisters clavulanic acid Allergy Intermediate Hives Verified 05/30/21 16:06 diphenhydramine Allergy Intermediate Hives Verified 05/30/21 16:06 iodine Allergy Intermediate Hives Verified 05/30/21 16:06 ketorolac Allergy Intermediate Hives Verified 05/30/21 16:06 meclofenamic acid Allergy Intermediate Hives Verified 05/30/21 16:06 neomycin Allergy Intermediate Hives, Verified 05/30/21 16:06 blisters NSAIDS (Non-Steroidal Allergy Intermediate Hives Verified 05/30/21 16:06 Anti-Inflamma (tolerates Celebrex) oxycodone Allergy Intermediate Hives Verified 05/30/21 16:06 (tolerates Vicodin) polymyxin B Allergy Intermediate Hives, Verified 05/30/21 16:06 blisters quinine Allergy Intermediate Hives Verified 05/30/21 16:06 Sulfa (Sulfonamide Allergy Intermediate Hives Verified 05/30/21 16:06 Antibiotics) tramadol Allergy Intermediate Hives, Verified 05/30/21 16:06 itching adhesive Allergy Mild Rash Verified 05/30/21 16:07 latex Allergy Mild Rash Verified 05/30/21 16:06 povidone-iodine Allergy Mild Rash Verified 05/30/21 16:07 doxycycline Allergy Anaphylaxis Unverified 05/30/21 15:04 meperidine AdvReac Intermediate N/V Verified 05/30/21 16:07 prednisone AdvReac Intermediate Made Verified 05/30/21 16:07 "bones soft" aspirin AdvReac Mild N/V Verified 05/30/21 16:08 Home Medications Medication Instructions Recorded Confirmed Type cholecalciferol (vitamin D3) 10 400 units PO QPM 05/26/18 05/30/21 History mcg (400 unit) capsule fluticasone propionate 50 1 sprays INTNAS BID PRN gm 05/26/18 05/30/21 History mcg/actuation nasal spray,suspension (Flonase Allergy Relief) loperamide 2 mg capsule 2 mg PO Q4H PRN 05/26/18 05/30/21 History magnesium oxide 400 mg (241.3 mg 400 mg PO BID tab 05/26/18 05/30/21 History magnesium) tablet docusate sodium 100 mg capsule 100 mg PO BID PRN 02/26/19 05/30/21 History zoledronic acid 5 mg/100 mL in 5 mg/kg IV YEARLY ml 03/02/19 05/30/21 History mannitol 5 %-water intravenous piggybck propylene glycol 0.6 % eye drops 1 % OP UD PRN ml 03/23/19 05/30/21 History (Systane Complete) ipratropium bromide 17 2 puffs INH DAILY PRN #12.9 gm 04/29/19 05/30/21 Rx mcg/actuation HFA aerosol inhaler silver sulfadiazine 1 % topical 1 applic TOPICAL BID PRN 10/08/19 05/30/21 History cream triamcinolone acetonide 0.5 % 1 applic TOPICAL BID PRN #60 g 08/01/20 05/30/21 Rx topical cream escitalopram oxalate 20 mg tablet 20 mg PO QAM #90 tab 11/03/20 05/30/21 Rx (Lexapro) metoprolol succinate 100 mg 150 mg PO DAILY #45 tab 02/22/21 05/30/21 Rx tablet,extended release 24 hr nitroglycerin 0.4 mg sublingual 0.4 mg SUBLINGUAL Q5M PRN #25 tab 02/22/21 05/30/21 Rx tablet (Nitrostat) nortriptyline 10 mg capsule 10 mg PO QAM #90 cap 02/27/21 05/30/21 Rx nortriptyline 25 mg capsule 25 mg PO HS #90 cap 03/12/21 05/30/21 Rx levothyroxine 75 mcg tablet 75 mcg PO QAM #90 tab 03/15/21 05/30/21 Rx Singulair 10 mg tablet 10 mg PO QPM #90 tab NS 04/17/21 05/30/21 Rx (montelukast) atorvastatin 40 mg tablet 40 mg PO DAILY #90 tab 05/25/21 05/30/21 Rx aspirin 81 mg tablet,delayed 81 mg PO DAILY 05/30/21 05/30/21 History release Past Med/Surg History Medical History Allergic rhinitis Anemia Chronic, hgb baseline 10-11 range per chart review Anxiety Asthma stable Chronic back pain Coronary artery disease cardiac catheterization -02/22/2021:Impression: 1. Severe CAD involving ostial/proximal LAD (100%), filling via left to left and right to left collaterals. 2. Otherwise nonobstructive CAD involving the mid circumflex. 3. No aortic stenosis. 4. Normal left-sided filling pressure. Depression GERD (gastroesophageal reflux disease) controlled History of right breast cancer s/p lumpectomy (1969)- no chemo or xrt Hx of fracture Right shoulder AC joint fracture (10/2020) due to traumatic event > healing without surgical intervention Hyperlipidemia Hypertension Hypothyroidism IBS (irritable bowel syndrome) Insomnia Ischemic cardiomyopathy Lumbar facet joint syndrome Lumbar spinal stenosis Osteoarthritis Rheumatoid arthritis On Methotrexate Sacroiliitis Steroid-induced osteoporosis Surgical History H/O arthroscopy of shoulder L shoulder H/O cataract extraction R/L eye History of arthroscopy of left knee History of breast biopsy History of foot surgery R/L History of lumpectomy of right breast History of right knee joint replacement History of tonsillectomy History of total abdominal hysterectomy and bilateral salpingo-oophorectomy d/t endometriosis S/P ORIF (open reduction internal fixation) fracture Left ankle S/p reverse total shoulder arthroplasty Left reverse TSA (02/26/19): Grade view 2, MAC#3, ETT 7 + PNB at [facility] (scope patch used) Family History Grandmother (Paternal) Family history of diabetes mellitus Grandmother (Maternal) Family history of diabetes mellitus Father Coronary heart disease Alzheimer disease Myocardial infarction Osteoarthritis COPD (chronic obstructive pulmonary disease) Lung disease Mother Myocardial infarction COPD (chronic obstructive pulmonary disease) Other No family history of adverse response to anesthesia Denies family history of Ovarian cancer Prostate cancer Breast cancer Colorectal cancer Social History Smoking Status: Never smoker Second Hand Exposure: No; Do You Dip or Chew Tobacco: No; Tobacco Cessation Education Requested by Patient: No Hx Alcohol Use: No Hx Substance Use: No Preferred Language: Dutch Communication Ability: Effective Visual Impairment: Limited Hearing Ability: Normal 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 Required: No Beliefs That Will Affect Care: None marital status: Current Living Situation: Spouse Current Living Situation Comment: granddaughter lives with pt too current occupational status: retired How many Children do You have: 2 Other Information That Helps Us Care for You: No Feels Safe at Home: Yes Safety Concerns: Feels Safe At This Time Childhood Exposure to Second-Hand Smoke: Yes caffeine: Yes (coffee) during the past year weight has: remained stable Dental Care, Regularly: No Physical Activity Frequency: Daily Physical Activity Frequency Comment: chores Seatbelt Use: always Sunscreen Use: No Assistive Devices: Denture - Upper and Glasses Review of Systems Review of Systems: All systems reviewed & are unremarkable except as noted in HPI & below Physical Exam Constitutional: WD/WN, vitals as above Eyes: PERRL, conjunctivae normal, anicteric sclerae Respiratory: normal respiratory effort, lungs clear to auscultation Auscultation: no crackles, no rales, no rhonchi and no wheezes Cardiovascular: Rate/Rhythm: regular rate and regular rhythm Heart Sounds: no gallop, no murmur and no cardiac rub Vessels: normal peripheral pulses; no JVD Extremities: no edema Gastrointestinal (Abdomen): Inspection/Auscultation: normal bowel sounds; abdomen not distended Percussion/Palpation: abdomen soft; abdomen nontender and no guarding Musculoskeletal: no cyanosis or clubbing, extremities motor strength 5/5 Skin: no rashes, warm and dry Neurologic: PERRL, EOMI, accommodation nl, no face palsy, no dysarthria CN's II-XI intact bilaterally and moves all extremities Psychiatric: Orientation: alert and oriented x 3 Results & Data Results & Data ([facility]) Vital Signs (Past 12 Hours) Vital Signs Temp Pulse Pulse Resp BP BP Pulse Ox 05/30/21 20:30 60 23 96 05/30/21 20:00 60 23 103/55 L 99 05/30/21 19:35 98 05/30/21 19:30 62 23 99 05/30/21 19:00 97/83 L 05/30/21 18:30 63 19 109/60 99 05/30/21 18:00 59 L 20 113/64 99 05/30/21 17:56 58 L 22 125/66 97 05/30/21 17:42 89 L 05/30/21 17:30 61 21 99/56 L 94 05/30/21 17:00 62 91 H 20 101/56 L 101/56 L 92 05/30/21 16:30 61 62 18 103/66 103/66 93 05/30/21 16:00 63 62 20 83/61 L 83/61 L 90 05/30/21 15:30 63 20 90/54 L 89 L 05/30/21 15:27 63 22 90/48 L 92 05/30/21 15:00 62 19 99/60 L 92 05/30/21 14:37 60 24 84/44 L 94 05/30/21 14:30 64 20 84/44 L 92 05/30/21 14:06 68 20 98/66 L 95 05/30/21 14:02 59 L 24 98/66 L 91 05/30/21 12:10 36.9 C 67 18 76/54 L 97 Laboratory Results 05/30/21 05/30/21 05/30/21 Range/Units 23:18 23:18 21:00 WBC (4.8-10.8) K/uL RBC (4.2-5.4) M/uL Hgb 7.1 L (12.0-16.0) g/dL Hct 23.4 L (37-47) % MCV (80-100) fL MCH (25-34) pg MCHC (32-36) g/dL RDW Std Deviation (36.4-46.3) fL RDW Coeff of Ender (11.5-14.5) % Plt Count (130-400) K/uL MPV (7.4-10.4) fL Reticulocyte % (Auto) Reticulocyte # Neutrophils % (Manual) % Lymphocytes % (Manual) % Reactive Lymphs % (Man) % Monocytes % (Manual) % Neutrophils # (Manual) (1.4-6.5) K/uL Total Absolute Neuts (1.4-6.5) K/uL Lymphocytes # (Manual) (1.2-3.4) K/uL Reactive Lymphs # K/uL Total Abs Lymphocytes (1.2-3.4) K/uL Monocytes # (Manual) (0.11-0.59) K/uL Blood Smear Review Polychromasia Macrocytosis Tear Drop Cells Ovalocytes Peripher Smr Path Cons PT (9.0-12.0) Seconds INR (0.9-1.1) APTT (21.0-31.0) Seconds PTT Ratio Sodium (136-145) mmol/L Potassium (3.5-5.1) mmol/L Chloride (98-107) mmol/L Carbon Dioxide (21-32) mmol/L Anion Gap (3-11) BUN (7-18) mg/dl Creatinine (0.6-1.2) mg/dl Est Cr Clr Drug Dosing Est GFR ( Amer) ml/min Est GFR (Non-Af Amer) ml/min BUN/Creatinine Ratio (10-20) Glucose (70-99) mg/dl Calcium (8.5-10.1) mg/dl Phosphorus (2.5-4.9) mg/dl Magnesium (1.8-2.4) mg/dl Iron (35-150) mcg/dl TIBC (250-450) mcg/dl Transferrin (200-360) mg/dl Ferritin (8-388) ng/ml Total Bilirubin (0.2-1) mg/dl Direct Bilirubin (0-0.2) mg/dl AST (15-37) U/L ALT (12-78) U/L Alkaline Phosphatase (45-117) U/L Troponin I (0-0.045) ng/ml Total Protein (6.4-8.2) gm/dl Albumin (3.4-5.0) gm/dl Globulin (2.5-4.0) gm/dl Albumin/Globulin Ratio (0.9-2) Vitamin B12 985 (193-986) pg/ml Folate 4.60 L (>5.38) ng/ml COVID-19 Eval Order SARS-CoV-2 (PCR) (Negative) Blood Type A Negative Antibody Screen NEGATIVE Crossmatch See Detail 05/30/21 05/30/21 05/30/21 Range/Units 15:25 15:25 14:32 WBC (4.8-10.8) K/uL RBC (4.2-5.4) M/uL Hgb (12.0-16.0) g/dL Hct (37-47) % MCV (80-100) fL MCH (25-34) pg MCHC (32-36) g/dL RDW Std Deviation (36.4-46.3) fL RDW Coeff of Ender (11.5-14.5) % Plt Count (130-400) K/uL MPV (7.4-10.4) fL Reticulocyte % (Auto) Reticulocyte # Neutrophils % (Manual) % Lymphocytes % (Manual) % Reactive Lymphs % (Man) % Monocytes % (Manual) % Neutrophils # (Manual) (1.4-6.5) K/uL Total Absolute Neuts (1.4-6.5) K/uL Lymphocytes # (Manual) (1.2-3.4) K/uL Reactive Lymphs # K/uL Total Abs Lymphocytes (1.2-3.4) K/uL Monocytes # (Manual) (0.11-0.59) K/uL Blood Smear Review Polychromasia Macrocytosis Tear Drop Cells Ovalocytes Peripher Smr Path Cons PT (9.0-12.0) Seconds INR (0.9-1.1) APTT (21.0-31.0) Seconds PTT Ratio Sodium (136-145) mmol/L Potassium (3.5-5.1) mmol/L Chloride (98-107) mmol/L Carbon Dioxide (21-32) mmol/L Anion Gap (3-11) BUN (7-18) mg/dl Creatinine (0.6-1.2) mg/dl Est Cr Clr Drug Dosing Est GFR ( Amer) ml/min Est GFR (Non-Af Amer) ml/min BUN/Creatinine Ratio (10-20) Glucose (70-99) mg/dl Calcium (8.5-10.1) mg/dl Phosphorus (2.5-4.9) mg/dl Magnesium (1.8-2.4) mg/dl Iron 34 L (35-150) mcg/dl TIBC 169 L (250-450) mcg/dl Transferrin 155 L (200-360) mg/dl Ferritin 307.1 (8-388) ng/ml Total Bilirubin (0.2-1) mg/dl Direct Bilirubin (0-0.2) mg/dl AST (15-37) U/L ALT (12-78) U/L Alkaline Phosphatase (45-117) U/L Troponin I (0-0.045) ng/ml Total Protein (6.4-8.2) gm/dl Albumin (3.4-5.0) gm/dl Globulin (2.5-4.0) gm/dl Albumin/Globulin Ratio (0.9-2) Vitamin B12 (193-986) pg/ml Folate (>5.38) ng/ml COVID-19 Eval Order Covid19 at [facility] SARS-CoV-2 (PCR) POSITIVE A* (Negative) Blood Type Antibody Screen Crossmatch 05/30/21 05/30/21 05/30/21 Range/Units 14:13 14:13 14:13 WBC 13.64 H (4.8-10.8) K/uL RBC 2.62 L (4.2-5.4) M/uL Hgb 8.5 L (12.0-16.0) g/dL Hct 28.0 L (37-47) % MCV 106.9 H (80-100) fL MCH 32.4 (25-34) pg MCHC 30.4 L (32-36) g/dL RDW Std Deviation 67.7 H (36.4-46.3) fL RDW Coeff of Ender 17.7 H (11.5-14.5) % Plt Count 651 H (130-400) K/uL MPV 10.3 (7.4-10.4) fL Reticulocyte % (Auto) 9.7 H Reticulocyte # 0.25 H Neutrophils % (Manual) 42.6 % Lymphocytes % (Manual) 28.7 % Reactive Lymphs % (Man) 22.6 % Monocytes % (Manual) 6.1 % Neutrophils # (Manual) 5.81 (1.4-6.5) K/uL Total Absolute Neuts 5.81 (1.4-6.5) K/uL Lymphocytes # (Manual) 3.91 H (1.2-3.4) K/uL Reactive Lymphs # 3.08 K/uL Total Abs Lymphocytes 7.00 H (1.2-3.4) K/uL Monocytes # (Manual) 0.83 H (0.11-0.59) K/uL Blood Smear Review Pending Polychromasia 1+ Macrocytosis Present Tear Drop Cells 1+ Ovalocytes 1+ Peripher Smr Path Cons Pending PT 11.7 (9.0-12.0) Seconds INR 1.2 H (0.9-1.1) APTT 31.0 (21.0-31.0) Seconds PTT Ratio 1.2 Sodium 136 (136-145) mmol/L Potassium 4.0 (3.5-5.1) mmol/L Chloride 103 (98-107) mmol/L Carbon Dioxide 25 (21-32) mmol/L Anion Gap 8.0 (3-11) BUN 18 (7-18) mg/dl Creatinine 1.01 (0.6-1.2) mg/dl Est Cr Clr Drug Dosing Not Reportable Est GFR ( Amer) 65.8 ml/min Est GFR (Non-Af Amer) 56.8 ml/min BUN/Creatinine Ratio 18.1 (10-20) Glucose 90 (70-99) mg/dl Calcium 8.7 (8.5-10.1) mg/dl Phosphorus 3.5 (2.5-4.9) mg/dl Magnesium 2.3 (1.8-2.4) mg/dl Iron (35-150) mcg/dl TIBC (250-450) mcg/dl Transferrin (200-360) mg/dl Ferritin (8-388) ng/ml Total Bilirubin 0.6 (0.2-1) mg/dl Direct Bilirubin 0.3 H (0-0.2) mg/dl AST 32 (15-37) U/L ALT 20 (12-78) U/L Alkaline Phosphatase 185 H (45-117) U/L Troponin I < 0.015 (0-0.045) ng/ml Total Protein 5.9 L (6.4-8.2) gm/dl Albumin 1.9 L (3.4-5.0) gm/dl Globulin 4.0 (2.5-4.0) gm/dl Albumin/Globulin Ratio 0.5 L (0.9-2) Vitamin B12 (193-986) pg/ml Folate (>5.38) ng/ml COVID-19 Eval Order SARS-CoV-2 (PCR) (Negative) Blood Type Antibody Screen Crossmatch 05/30/21 Range/Units 14:11 WBC (4.8-10.8) K/uL RBC (4.2-5.4) M/uL Hgb (12.0-16.0) g/dL Hct (37-47) % MCV (80-100) fL MCH (25-34) pg MCHC (32-36) g/dL RDW Std Deviation (36.4-46.3) fL RDW Coeff of Ender (11.5-14.5) % Plt Count (130-400) K/uL MPV (7.4-10.4) fL Reticulocyte % (Auto) Cancelled Reticulocyte # Cancelled Neutrophils % (Manual) % Lymphocytes % (Manual) % Reactive Lymphs % (Man) % Monocytes % (Manual) % Neutrophils # (Manual) (1.4-6.5) K/uL Total Absolute Neuts (1.4-6.5) K/uL Lymphocytes # (Manual) (1.2-3.4) K/uL Reactive Lymphs # K/uL Total Abs Lymphocytes (1.2-3.4) K/uL Monocytes # (Manual) (0.11-0.59) K/uL Blood Smear Review Polychromasia Macrocytosis Tear Drop Cells Ovalocytes Peripher Smr Path Cons PT (9.0-12.0) Seconds INR (0.9-1.1) APTT (21.0-31.0) Seconds PTT Ratio Sodium (136-145) mmol/L Potassium (3.5-5.1) mmol/L Chloride (98-107) mmol/L Carbon Dioxide (21-32) mmol/L Anion Gap (3-11) BUN (7-18) mg/dl Creatinine (0.6-1.2) mg/dl Est Cr Clr Drug Dosing Est GFR ( Amer) ml/min Est GFR (Non-Af Amer) ml/min BUN/Creatinine Ratio (10-20) Glucose (70-99) mg/dl Calcium (8.5-10.1) mg/dl Phosphorus (2.5-4.9) mg/dl Magnesium (1.8-2.4) mg/dl Iron (35-150) mcg/dl TIBC (250-450) mcg/dl Transferrin (200-360) mg/dl Ferritin (8-388) ng/ml Total Bilirubin (0.2-1) mg/dl Direct Bilirubin (0-0.2) mg/dl AST (15-37) U/L ALT (12-78) U/L Alkaline Phosphatase (45-117) U/L Troponin I (0-0.045) ng/ml Total Protein (6.4-8.2) gm/dl Albumin (3.4-5.0) gm/dl Globulin (2.5-4.0) gm/dl Albumin/Globulin Ratio (0.9-2) Vitamin B12 (193-986) pg/ml Folate (>5.38) ng/ml COVID-19 Eval Order SARS-CoV-2 (PCR) (Negative) Blood Type Antibody Screen Crossmatch Diagnostic Findings CT ABDOMEN & PELVIS With Contrast: Comparison is made with CT abdomen pelvis June 13, 2020. Mild CBD dilatation and probable choledocholithiasis. Cholelithiasis, with moderate distended gallbladder, nonspecific, cannot rule out acute cholecystitis. New bilateral pleural effusions and infiltrates are nonspecific, concerning for pneumonia. No SBO, free air or free fluid. Radiologist: Pia Menard M.D. Medications Administered Current Inpatient Medications Acetaminophen (Acetaminophen 325 Mg Tab) 650 mg PO Q4H PRN PRN Reason: Pain or Fever Stop: 06/29/21 22:49 Al Hydrox/Mg Hydrox/Simethicone (Aluminum/Magnesium Susp 30 Ml Udc) 15 ml PO Q4H PRN PRN Reason: Dyspepsia Stop: 06/29/21 22:49 Atorvastatin Calcium (Atorvastatin 40 Mg Tab) 40 mg PO DAILY SIDDHARTHA Stop: 06/30/21 08:59 Docusate Sodium (Docusate Sodium 100 Mg Cap) 100 mg PO BID PRN PRN Reason: Constipation Stop: 06/29/21 22:49 Escitalopram Oxalate (Escitalopram Oxalate 20 Mg Tab) 20 mg PO QAM SIDDHARTHA Stop: 06/30/21 08:59 Fluticasone Propionate (Fluticasone Propionate Na Spr 16 Gm Btl) 1 sprays NA BID PRN PRN Reason: Nasal Congestion Stop: 06/29/21 22:49 Potassium Chloride/Sodium Chloride (Normal Saline W/20 Meq Kcl) 20 meq in 1,000 mls @ 100 mls/hr IV .Q10H SIDDHARTHA Stop: 06/29/21 22:49 Last Admin: 05/31/21 03:14 Dose: 100 mls/hr Documented by: Sodium Chloride (Nss) 250 mls @ 15 mls/hr IV .[id number] PRN PRN Reason: For Transfusion Stop: 05/31/21 11:56 Ipratropium [place] (Ipratropium [place] Hfa Inhaler) 2 puffs INH DAILY PRN PRN Reason: shortness of breath or wheezing Stop: 06/29/21 22:49 Levothyroxine Sodium (Levothyroxine Sodium 75 Mcg Tablet) 75 mcg PO DAILYBB SIDDHARTHA Stop: 06/30/21 06:29 Magnesium Hydroxide (Magnesium Hydroxide Susp 30 Ml Udc) 30 ml PO Q12H PRN PRN Reason: Constipation Stop: 06/29/21 22:49 Magnesium Oxide (Magnesium Oxide 400 Mg Tab) 400 mg PO BID SIDDHARTHA Stop: 06/30/21 08:59 Montelukast Sodium (Montelukast Sodium 10 Mg Tablet) 10 mg PO QPM SIDDHARTHA Stop: 06/30/21 20:59 Nitroglycerin (Nitroglycerin Sl 0.4 Mg/Tab Tab) 0.4 mg SL Q5M PRN PRN Reason: chest pain Stop: 06/29/21 22:49 Nortriptyline HCl (Nortriptyline Hcl 10 Mg Cap) 10 mg PO QAM SIDDHARTHA Stop: 06/30/21 08:59 Nortriptyline HCl (Nortriptyline Hcl 25 Mg Cap) 25 mg PO HS SIDDHARTHA Stop: 06/30/21 20:59 Ondansetron HCl (Ondansetron Inj 2 Mg/Ml 2 Ml Vial) 4 mg IV Q6H PRN PRN Reason: Nausea Stop: 06/29/21 22:49 Polyethylene Glycol (Polyethylene (Miralax) 17 Gm Pack) 17 gm PO DAILY PRN PRN Reason: Constipation Stop: 06/29/21 22:49 Supervising Physician Co-Signing Physician Notes Attending addendum: I have physically seen this patient, have supervised the medical residents frank ibrahim, and agree with the H&P unless as otherwise noted. Assessment and Plan: Anemia- Hemoglobin 8.5 upon admission, with most recent 10.4, but down from 11.5 last year NPO Admit to monitored bed Hemoglobin dropped further to 7.1, Protonix IV as noted Iron studies ordered by ED, will add B12 and folic acid levels Consult gastroenterology COVID-19 pneumonia- Avoiding dexamethasone for now due to recent herpes zoster V2 and V3 distribution, and unknown cause of anemia Does not appear to be actively infected at this time, but monitor oxygenation closely Hypotension- Did initially respond to IV fluids, but should do better with transfusion of PRBCs Remaining orders and notations as noted Resident Activity Tracking Resident Involvement: Resident Care Provided Care Provided: Adult Hospital Medicine (1) Hypotension Hypotension type: unspecified hypotension type Qualified Code(s): I95.9 - Hypotension, unspecified
[2021-05-30 22:39] LABS: Folate (Folic Acid) 4.6 ng/ml (>5.38)
[2021-05-30] MEDS ORDERED: IPRATROPIUM BROMIDE HFA INHALER INH PRN (22:50)
[2021-05-30] MEDS ORDERED: FLUTICASONE PROPIONATE NA SPR 16 GM BTL PRN (22:50)
[2021-05-30] MEDS ORDERED: NITROGLYCERIN SL 0.4 MG/TAB TAB SL PRN (22:50)
[2021-05-30] MEDS ORDERED: ALUMINUM/MAGNESIUM SUSP 30 ML UDC PO PRN (22:50)
[2021-05-30] MEDS ORDERED: MAGNESIUM HYDROXIDE SUSP 30 ML UDC PO PRN (22:50)
[2021-05-30] MEDS ORDERED: POLYETHYLENE (MIRALAX) 17 GM PACK PO PRN (22:50)
[2021-05-30] MEDS ORDERED: ACETAMINOPHEN 325 MG TAB PO PRN (22:50)
[2021-05-30] MEDS ORDERED: DOCUSATE SODIUM 100 MG CAP PO PRN (22:50)
[2021-05-30] MEDS ORDERED: ONDANSETRON INJ 2 MG/ML 2 ML VIAL IV PRN (22:50)
[2021-05-30] MEDS ORDERED: FAMOTIDINE 40 MG TABLET PO ONE (23:15)
[2021-05-30 23:28] LABS: Hematocrit (blood only) 23.4 % (37-47); Hemoglobin 7.1 g/dL (12.0-16.0)
[2021-05-31] MEDS ORDERED: SODIUM CHLORIDE 0.9% 250 ML IV PRN (01:55)
[2021-05-31] MEDS: NSS + 20MEQ KCL 20 MEQ/1,000 ML BAG IV SCH ×3 (03:14→17:43)
[2021-05-31] MEDS ORDERED: OPTIRAY 320 100ml IV ONE (03:26)
[2021-05-31 04:44] LABS: Hematocrit (blood only) 23.8 % (37-47); Hemoglobin 7.2 g/dL (12.0-16.0); Mean Corpuscular Hemoglobin 32.6 pg (25-34); Mean Corpuscular Hgb Conc 30.3 g/dL (32-36); Mean Corpuscular Volume 107.7 fL (80-100); Mean Platelet Volume 9.9 fL (7.4-10.4); Platelet Count 467 K/uL (130-400); RDW Standard Deviation 69.8 fL (36.4-46.3); Red Blood Count 2.21 M/uL (4.2-5.4)
[2021-05-31 05:06] LABS: Albumin Level 1.5 gm/dl (3.4-5.0); BUN Creatinine Ratio 20.4 (10-20); Calcium 7.8 mg/dl (8.5-10.1); Creatinine Clr Calc Pharmacy 45.1 ml/min; Est GFR (African American) 67.4 ml/min; Est GFR (Non-African American) 58.1 ml/min; Magnesium 2.2 mg/dl (1.8-2.4); Potassium 4.4 mmol/L (3.5-5.1)
[2021-05-31 05:12] LABS: Albumin Globulin Ratio 0.5 (0.9-2); Bilirubin,Total 0.4 mg/dl (0.2-1); Globulin 3.2 gm/dl (2.5-4.0); Phosphorus 4.6 mg/dl (2.5-4.9); Total Protein 4.7 gm/dl (6.4-8.2)
[2021-05-31 05:31] LABS: Basophils # (auto) 0.04 K/uL (0-0.2); Basophils % (auto) 0.4 %; Eosinophils # (auto) 0.03 K/uL (0-0.5); Eosinophils % (auto) 0.3 %; Immature Granulocytes # (auto) 0.03 K/uL (0.00-0.02); Immature Granulocytes % (auto) 0.3 %; Lymphocytes # (auto) 4.96 K/uL (1.2-3.4); Lymphocytes % (auto) 47.2 %; Monocytes # (auto) 1.49 K/uL (0.11-0.59); Monocytes % (auto) 14.2 %; Neutrophils # (auto) 3.95 K/uL (1.4-6.5); Neutrophils % (auto) 37.6 %; Polychromasia 1+; Tear Drop Cells 1+
--- NOTE | 2021-05-31 05:51 | Electrocardiogram Report ---
Test Reason : Blood Pressure : / mmHG Vent. Rate : 062 BPM Atrial Rate : 062 BPM P-R Int : 190 ms QRS Dur : 108 ms QT Int : 512 ms P-R-T Axes : -08 -18 226 degrees QTc Int : 520 ms Poor data quality, interpretation may be adversely affected Normal sinus rhythm Nonspecific ST and T wave abnormality Prolonged QT Abnormal ECG When compared with ECG of 29-DEC-2020 11:40, Nonspecific T wave abnormality now evident in Inferior leads Nonspecific T wave abnormality now evident in Anterior leads T wave inversion no longer evident in Lateral leads Confirmed by Vladimir Martin ([id number]) on 05/31/2021 5:51:10 AM Referred By: REFERRED SELF Confirmed By:Vladimir Martin
--- NOTE | 2021-05-31 07:56 | Hospitalist Progress Note ---
Date of Service May 31, 2021 Assessment & Plan (1) Anemia: Plan: Tammy Caceres is a 71-year-old female with past medical history significant for coronary artery disease, hypertension hyperlipidemia, hypothyroidism, GERD, and osteoporosis; who presents for concerns of low blood pressure throughout the last day with associated weakness for the last several weeks. Anemia: - On admit Patient presented with hemoglobin of 8.5 acutely decreased from 1 week prior of 10.2 -No clinical signs of bleeding. -Recheck continued blood loss with hemoglobin of 7.1 -Per admitting team two-physician consent on paperwork for transfusions given positive COVID-19 status however patient expressed agreement to transfusions -CT-A/P: No signs of bleed, choledoco as noted below -Hemoccult pending -Repeat Hgb prior to transfusions in a.m. demonstrating consistent levels of 7.2 Appropriate rise in hemoglobin to 9.6 this afternoon, continue to monitor -Started on Protonix 40 mg IV twice daily given concerns for GI loss -MCV >100 with low folate and normal B12. Repletion ordered - Unasyn ppx, wilma coverage as below Anticipate EGD today (2) COVID-19: Plan: COVID-19: -Positive COVID-19 test on admission -Tested positive 12/2020, interval negative tests in x2 in January, retested positive on admission. No cough/sx, but pt with mild new O2 requirement in ERand CT suggestive on PNA (see above). Per prior discussion w/ infection control will tx as re-infection/possible delta rather than residual positive -Maintain on COVID-19 precautions - Defer steroids given concern for GIB (3) Choledocholithiasis: Plan: Choledocolithiasis,? Cholecystitis - CT-A/P Prelim: Mild CBD dilatation and probable choledocholithiasis. Cholelithiasis, with mod gallbladder distension. Cannot r/o cholecystitis. New bilateral pleural effusions and infiltrates ? PNA. No SBO, free air, free fluid - WBC downtrending - AlkPhos 153, Tbili 0.4 - GI consulted - Unasyn as noted Anticipate ERCP following EGD Surgery consulted for potential management of cholecystitis, additional work-up pending as above (4) Hypertension: Plan: Defer in the setting of acute blood loss (5) Hyperlipidemia: Plan: Continue atorvastatin (6) Hypotension: Plan: Hypotension: -Questionable relationship of hypotension to anemia with acute blood loss versus reduced oral intake over the last 2 weeks given exacerbation of trigeminal neuralgia -Responsive to fluid -Replete fluids as above, anemia management as above (7) Coronary artery disease: Plan: Aspirin held Continue atorvastatin 40 mg daily Metoprolol as noted 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 Disposition: PCU Admission and Anticipated Discharge Date Admission Date: May 30, 2021 Dariela Hull is seen at the bedside today. She is in no acute distress, appears comfortable. Reports that she is awaiting her EGD, but overall feels well. Denies lightheadedness, dizziness, bleeding. Endorses some chronic weakness and fatigue similar to prior, no acute change today. Denies nausea/vomiting/diarrhea. Denies abdominal pain. Pleasant, wondering when her EGD will be but otherwise no questions or concerns. Review of Systems Review of Systems: 10 point review of systems negative except as noted in HPI Physical Exam Physical Exam: General: A&Ox3. NAD. Cooperative. HEENT: Atraumatic, normocephalic. Visual acuity and hearing grossly intact. Pulm: Trace bibasilar crackles otherwise CTAB A&P. -wheezes, -rales, -rhonchi. Symmetrical chest rise. No increase work of breathing. No respiratory distress. Cardiac: RRR, -mrg. Radial pulses intact and symmetrical. Abdominal: Nontender, nondistended, soft. BS present. Extremities: Moving all extremities equally, sensation in hands and feet grossly intact, distal extremity strength grossly intact bilaterally Results & Data Results & Data ([facility]) Vital Signs (Past 12 Hours) Vital Signs Temp Pulse Pulse Resp BP BP Pulse Ox 05/31/21 07:15 106/59 L 05/31/21 07:00 119/64 05/31/21 06:45 110/64 05/31/21 06:30 55 L 15 113/58 L 100 05/31/21 06:15 59 L 16 108/59 L 100 05/31/21 06:00 57 L 15 101/65 100 05/31/21 05:45 58 L 19 100 05/31/21 05:30 57 L 18 109/50 L 100 05/31/21 05:15 57 L 16 112/76 100 05/31/21 05:05 36.8 C 66 16 124/59 L 100 05/31/21 04:50 36.7 C 60 16 95/53 L 99 05/31/21 04:00 57 L 100/58 L 97 05/31/21 03:30 57 L 99/54 L 97 05/31/21 03:00 59 L 99/55 L 05/31/21 02:40 57 L 119/63 05/31/21 01:30 60 104/52 L 05/31/21 01:00 58 L 98/53 L 05/31/21 00:00 55 L 96/55 L 05/30/21 23:30 59 L 100/56 L 05/30/21 23:00 105/53 L 05/30/21 22:30 55 L 16 105/54 L 97 05/30/21 22:10 36.8 C 59 L 18 98/53 L 97 05/30/21 22:00 98/53 L 05/30/21 21:30 102/55 L 05/30/21 21:00 107/62 05/30/21 20:30 60 23 96 05/30/21 20:00 60 23 103/55 L 99 PG Care Time/CCT Total # of Minutes Spent Total Time Spent with Patient: Total time spent is greater than 50% in coordination of care (as documented) at patient's floor/unit and/or counseling patient: Coding Level of Care Code 56594 Subseq Hosp Care Lvl 3 Diagnoses Anemia D64.9 COVID-19 U07.1 Hyperlipidemia E78.5 Hypotension I95.9 Hypotension type: unspecified hypotension type Hypertension I10 Choledocholithiasis K80.50 Coronary artery disease I25.10 Asthma J45.909 (1) Hypotension Hypotension type: unspecified hypotension type Qualified Code(s): I95.9 - Hypotension, unspecified
--- NOTE | 2021-05-31 08:10 | CT Scan Report ---
ABDOMEN AND PELVIS CT WITH IV CONTRAST CT DOSE: 833.18 mGycm HISTORY: Acute generalized abdominal pain with possible GI bleed concern for GI bleed TECHNIQUE: Multiaxial CT images of the abdomen and pelvis were performed following the IV administrat ion of 100 cc of Optiray, A dose lowering technique was utilized adhering to the principles of ALARA . COMPARISON STUDY: CT abdomen and pelvis 06/13/2020 FINDINGS: The imaged inferior cardiac chambers are unremarkable. Trace pleural effusions. Mild bibasi lar groundglass densities with intralobular septal thickening. Limited study secondary to upper extre mity positioning. There is no pneumatosis or pneumoperitoneum. Unremarkable spleen, pancreas and adrenal glands. The gallbladder is distended. Large stones within t he gallbladder lumen measuring over 2 cm in size. There is mild intrahepatic and extrahepatic biliary ductal dilation with choledocholithiasis. There are at least 3 tiny calculi within the common bile d uct measuring up to 2 mm. Hepatic cysts are redemonstrated measuring up to 1.9 cm. Patency of the hep atic and portal veins. 1.7 cm cyst of the inferior pole left kidney. Kidneys are otherwise unremarkable. No hydronephrosis. Unremarkable urinary bladder. Hysterectomy. No adnexal mass lesion. No abdominal aortic aneurysm. A m illimeter periaortic lymph node on image 171 is unchanged and likely benign. No bowel obstruction or bowel wall thickening. There is tethering within the lower pelvis adjacent to the hysterectomy site with an adjacent loop of small bowel again noted coursing towards the vaginal cuff. No definite fistula identified. Normal appendix. Unremarkable soft tissues. Numerous chronic th oracolumbar compression deformities appear unchanged. IMPRESSION: 1. Cholelithiasis with gallbladder distention, equivocal for developing acute cholecystitis. 2. Choledocholithiasis results in mild intrahepatic and extrahepatic biliary ductal dilation. This fi nding was called/faxed to the emergency department at time of dictation. 3. No bowel obstruction or bowel wall thickening. 4. Trace pleural effusions with pulmonary edema and mild bibasilar opacities suggestive of atelectasi s. 5. Additional findings as above. ACT 112: Negative or not required by law. The above report was generated using voice recognition software. It may contain grammatical, syntax o r spelling errors. Electronically signed by: Greyson Merchant M.D. 05/31/2021 8:09 AM
[2021-05-31] MEDS: ESCITALOPRAM OXALATE 20 MG TAB PO SCH (09:09)
[2021-05-31] MEDS: NORTRIPTYLINE HCL 10 MG CAP PO SCH (09:09)
[2021-05-31] MEDS: ATORVASTATIN 40 MG TAB PO SCH (09:09)
[2021-05-31] MEDS: MAGNESIUM OXIDE 400 MG TAB PO SCH ×2 (09:09→21:34)
[2021-05-31] MEDS: PANTOprazole 40 MG in SYRINGE 0 ML IV SCH ×2 (09:09→21:35)
--- NOTE | 2021-05-31 09:36 | Gastrointestinal Consultation ---
Date of Consultation May 31, 2021 Assessment & Plan (1) Cholangitis: As evidenced by WBC 13, weakness, CT with choledocholithiasis. Also with gallstones, possible acute cholecystitis. Will consult surgery. Discussed with Dr. Ellison. Will need to go forward with urgent ERCP this af ternoon. Please keep NPO. Continue antibiotics. Further recommendations to follow ERCP. (2) COVID-19: (3) Anemia: Hb 8.5 on arrival -> w/o any evidence of gross GI bleeding. Appreciate primary hospitalists management of acute on chronic anemia. Will check for UGI bleeding with EGD prior to ERCP. Colonoscopy is up to date, though was incomplete due to adhesive disease, with scope only to the sigmoid colon. According to notes, CT was arranged after. Supervising Physician Co-Signing Physician Notes I performed a history and physical examination of the patient today, including specifically on physical exam - soft abdomen. I have discussed the patient's management with the advanced practitioner. Please refer to the nurse practitioner's note for the documented findings and plan of care. ERCP today Patient was explained in detail regarding risks, benefits, limitations and alternatives of the above endoscopic procedure. Risks of intravenous sedation used for procedure were also explained. Risks include, but not limited to perforation, bleeding, infection, respiratory distress, cardiac arrest and . Patient is also aware about the possibility of missed lesion. Patient's questions were answered. The patient verbalized understanding the information and agreed to undergo the procedure. History of Present Illness Reason for Consultation: ?GIB, choledoco, COVID+ Requesting Physician: Dr. Levi Latif Attending Physician: Levi Latif MD History of Present Illness Ms. Tammy Browne is a 71 yr old female pt with a hx of coronary artery disease, hypertension, hyperlipidemia, hypothyroidism, GERD, and osteoporosis presented to the ED yesterday morning for weakness. She was found to be COVID (+). She reports that she has had ongoing weakness and dizziness since undergoing a cardiac cath in January with findings of "a partly clogged artery," though records say 100% occlusion of the proximal LAD with collateral flow. At that time her cardiac meds were changed and she has has some dizziness and weakness since then. Yesterday, she was weaker than usual, unable to stand and presented to the ED. She denies having any hx of abdominal pain, nausea, vomiting, fevers, chills, sweats, yellow eyes or skin and has not noticed dark urine or acholic stools. Regarding COVID (+) results, she denies any cough, CP, SOB. On arrival, she was found to be anemic with Hb 8.5->7 this morning, then received a unit of RBCs. She denies any black or red BMs and has not had any vomiting. She received a unit of RBCs (f/u Hb pending). CT on arrival with gallstones, choledocholithiasis and intra/extra hepatic bile duct dilation. She had leukocytosis at 13 ->10 on antibiotics. She has been afebrile, normotensive to slightly hypertensive. Her Alk Phos is at 153. Bilirubin and transaminases are normal. She is awake, alert, oriented, free of pain, non tender on exam. Allergies Allergy/AdvReac Type Severity Reaction Status Date / Time bacitracin Allergy Intermediate Hives, Verified 05/30/21 16:06 blisters clavulanic acid Allergy Intermediate Hives Verified 05/30/21 16:06 diphenhydramine Allergy Intermediate Hives Verified 05/30/21 16:06 iodine Allergy Intermediate Hives Verified 05/30/21 16:06 ketorolac Allergy Intermediate Hives Verified 05/30/21 16:06 meclofenamic acid Allergy Intermediate Hives Verified 05/30/21 16:06 neomycin Allergy Intermediate Hives, Verified 05/30/21 16:06 blisters NSAIDS (Non-Steroidal Allergy Intermediate Hives Verified 05/30/21 16:06 Anti-Inflamma (tolerates Celebrex) oxycodone Allergy Intermediate Hives Verified 05/30/21 16:06 (tolerates Vicodin) polymyxin B Allergy Intermediate Hives, Verified 05/30/21 16:06 blisters quinine Allergy Intermediate Hives Verified 05/30/21 16:06 Sulfa (Sulfonamide Allergy Intermediate Hives Verified 05/30/21 16:06 Antibiotics) tramadol Allergy Intermediate Hives, Verified 05/30/21 16:06 itching adhesive Allergy Mild Rash Verified 05/30/21 16:07 latex Allergy Mild Rash Verified 05/30/21 16:06 povidone-iodine Allergy Mild Rash Verified 05/30/21 16:07 doxycycline Allergy Anaphylaxis Unverified 05/30/21 15:04 meperidine AdvReac Intermediate N/V Verified 05/30/21 16:07 prednisone AdvReac Intermediate Made Verified 05/30/21 16:07 "bones soft" aspirin AdvReac Mild N/V Verified 05/30/21 16:08 Home Medications Medication Instructions Recorded Confirmed Type cholecalciferol (vitamin D3) 10 400 units PO QPM 05/26/18 05/30/21 History mcg (400 unit) capsule fluticasone propionate 50 1 sprays INTNAS BID PRN gm 05/26/18 05/30/21 History mcg/actuation nasal spray,suspension (Flonase Allergy Relief) loperamide 2 mg capsule 2 mg PO Q4H PRN 05/26/18 05/30/21 History magnesium oxide 400 mg (241.3 mg 400 mg PO BID tab 05/26/18 05/30/21 History magnesium) tablet docusate sodium 100 mg capsule 100 mg PO BID PRN 02/26/19 05/30/21 History zoledronic acid 5 mg/100 mL in 5 mg/kg IV YEARLY ml 03/02/19 05/30/21 History mannitol 5 %-water intravenous piggybck propylene glycol 0.6 % eye drops 1 % OP UD PRN ml 03/23/19 05/30/21 History (Systane Complete) ipratropium bromide 17 2 puffs INH DAILY PRN #12.9 gm 04/29/19 05/30/21 Rx mcg/actuation HFA aerosol inhaler silver sulfadiazine 1 % topical 1 applic TOPICAL BID PRN 10/08/19 05/30/21 History cream triamcinolone acetonide 0.5 % 1 applic TOPICAL BID PRN #60 g 08/01/20 05/30/21 Rx topical cream escitalopram oxalate 20 mg tablet 20 mg PO QAM #90 tab 11/03/20 05/30/21 Rx (Lexapro) metoprolol succinate 100 mg 150 mg PO DAILY #45 tab 02/22/21 05/30/21 Rx tablet,extended release 24 hr nitroglycerin 0.4 mg sublingual 0.4 mg SUBLINGUAL Q5M PRN #25 tab 02/22/21 05/30/21 Rx tablet (Nitrostat) nortriptyline 10 mg capsule 10 mg PO QAM #90 cap 02/27/21 05/30/21 Rx nortriptyline 25 mg capsule 25 mg PO HS #90 cap 03/12/21 05/30/21 Rx levothyroxine 75 mcg tablet 75 mcg PO QAM #90 tab 03/15/21 05/30/21 Rx Singulair 10 mg tablet 10 mg PO QPM #90 tab NS 04/17/21 05/30/21 Rx (montelukast) atorvastatin 40 mg tablet 40 mg PO DAILY #90 tab 05/25/21 05/30/21 Rx aspirin 81 mg tablet,delayed 81 mg PO DAILY 05/30/21 05/30/21 History release Patient History Medical History Allergic rhinitis Anemia Chronic, hgb baseline 10-11 range per chart review Anxiety Asthma stable Chronic back pain Coronary artery disease cardiac catheterization -02/22/2021:Impression: 1. Severe CAD involving ostial/proximal LAD (100%), filling via left to left and right to left collaterals. 2. Otherwise nonobstructive CAD involving the mid circumflex. 3. No aortic stenosis. 4. Normal left-sided filling pressure. Depression GERD (gastroesophageal reflux disease) controlled History of right breast cancer s/p lumpectomy (1969)- no chemo or xrt Hx of fracture Right shoulder AC joint fracture (10/2020) due to traumatic event > healing without surgical intervention Hyperlipidemia Hypertension Hypothyroidism IBS (irritable bowel syndrome) Insomnia Ischemic cardiomyopathy Lumbar facet joint syndrome Lumbar spinal stenosis Osteoarthritis Rheumatoid arthritis On Methotrexate Sacroiliitis Steroid-induced osteoporosis Surgical History H/O arthroscopy of shoulder L shoulder H/O cataract extraction R/L eye History of arthroscopy of left knee History of breast biopsy History of foot surgery R/L History of lumpectomy of right breast History of right knee joint replacement History of tonsillectomy History of total abdominal hysterectomy and bilateral salpingo-oophorectomy d/t endometriosis S/P ORIF (open reduction internal fixation) fracture Left ankle S/p reverse total shoulder arthroplasty Left reverse TSA (02/26/19): Grade view 2, MAC#3, ETT 7 + PNB at [facility] (scope patch used) Family History Grandmother (Paternal) Family history of diabetes mellitus Grandmother (Maternal) Family history of diabetes mellitus Father Coronary heart disease Alzheimer disease Myocardial infarction Osteoarthritis COPD (chronic obstructive pulmonary disease) Lung disease Mother Myocardial infarction COPD (chronic obstructive pulmonary disease) Other No family history of adverse response to anesthesia Denies family history of Ovarian cancer Prostate cancer Breast cancer Colorectal cancer Social History Smoking Status: Never smoker Second Hand Exposure: No; Do You Dip or Chew Tobacco: No; Tobacco Cessation Education Requested by Patient: No Hx Alcohol Use: No Hx Substance Use: No Preferred Language: Turkish Communication Ability: Effective Visual Impairment: Limited Hearing Ability: Normal Campus Wellness Coordinator Required: No Beliefs That Will Affect Care: None marital status: Current Living Situation: Spouse Current Living Situation Comment: granddaughter lives with pt too current occupational status: retired How many Children do You have: 2 Other Information That Helps Us Care for You: No Feels Safe at Home: Yes Safety Concerns: Feels Safe At This Time Childhood Exposure to Second-Hand Smoke: Yes caffeine: Yes (coffee) during the past year weight has: remained stable Dental Care, Regularly: No Physical Activity Frequency: Daily Physical Activity Frequency Comment: chores Seatbelt Use: always Sunscreen Use: No Assistive Devices: Denture - Upper and Glasses Review of Systems Review of Systems: ROS: Gen: + Weakness Denies fevers, weight loss Eyes: No eye redness, or pain, no recent vision changes Resp: No SOB, no cough Cardio: No palpitations/irregular beats, no chest pain GI: No abdominal pain, no nausea/vomiting : Denies pain on urination Skin: No jaundice, itching or new rashes M/S has chronic back pain Neuro: has chronic neuropathy of both lower legs/feet Physical Exam Constitutional: well developed, + ill appearing, cooperative and + overweight Eyes: PERRL, conjunctivae normal, anicteric sclerae Neck: trachea midline, no thyromegaly Respiratory: normal respiratory effort and able to speak in complete sentences; no respiratory distress, no labored breathing, does not use accessory muscles and no cough Has fine crackles in the base of both lungs posteriorly Cardiovascular: RRR, no murmur, no edema Gastrointestinal (Abdomen): normal bowel sounds, soft, nontender, no hepatosplenomegaly Inspection/Auscultation: abdomen normal to inspection and normal bowel sounds; abdomen not distended and no abdominal edema Skin: no rashes, warm and dry normal turgor and + pallor Neurologic: PERRL, EOMI, accommodation nl, no face palsy, no dysarthria awake; not confused Psychiatric: A+Ox3, euthymic affect Orientation: alert, oriented x 3 and cooperative Lymphatic: no cervical or axillary lymphadenopathy Results & Data ([facility]) Vital Signs (Past 12 Hours) Vital Signs Temp Pulse Pulse Resp BP BP Pulse Ox 05/31/21 09:00 114/65 99 05/31/21 08:45 113/68 05/31/21 08:30 60 19 99 05/31/21 08:15 127/60 05/31/21 08:00 112/63 05/31/21 07:45 126/60 05/31/21 07:34 129/78 05/31/21 07:26 36.8 C 59 L 21 129/78 05/31/21 07:15 106/59 L 05/31/21 07:00 119/64 05/31/21 06:45 110/64 05/31/21 06:30 55 L 15 113/58 L 100 05/31/21 06:15 59 L 16 108/59 L 100 05/31/21 06:00 57 L 15 101/65 100 05/31/21 05:45 58 L 19 100 05/31/21 05:30 57 L 18 109/50 L 100 05/31/21 05:15 57 L 16 112/76 100 05/31/21 05:05 36.8 C 66 16 124/59 L 100 05/31/21 04:50 36.7 C 60 16 95/53 L 99 05/31/21 04:00 57 L 100/58 L 97 05/31/21 03:30 57 L 99/54 L 97 05/31/21 03:00 59 L 99/55 L 05/31/21 02:40 57 L 119/63 05/31/21 01:30 60 104/52 L 05/31/21 01:00 58 L 98/53 L 05/31/21 00:00 55 L 96/55 L 05/30/21 23:30 59 L 100/56 L 05/30/21 23:00 105/53 L 05/30/21 22:30 55 L 16 105/54 L 97 05/30/21 22:10 36.8 C 59 L 18 98/53 L 97 05/30/21 22:00 98/53 L Laboratory Results WBC 10, Hb 7, Hct 23, Plts 467, Na 139, K 4.9, BUN 18, Cr 0.9, glucose 74 Diagnostic Findings CTAP w IV contrast on 05/31/21: 1. Cholelithiasis with gallbladder distention, equivocal for developing acute cholecystitis. 2. Choledocholithiasis results in mild intrahepatic and extrahepatic biliary ductal dilation. This finding was called/faxed to the emergency department at time of dictation. 3. No bowel obstruction or bowel wall thickening. 4. Trace pleural effusions with pulmonary edema and mild bibasilar opacities suggestive of atelectasis. Medications Administered Unasyn
[2021-05-31] MEDS: LEVOTHYROXINE SODIUM 75 MCG TABLET PO SCH (10:01)
[2021-05-31] MEDS: AMPICILLIN/SULBACTAM SOD 3,000 MG in 0.9 % SODIUM CHLORIDE 100 ML IV SCH ×3 (10:02→21:35)
--- NOTE | 2021-05-31 14:06 | Anesthesiology Consultation ---
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 History Surgery Operation Date: 05/31/21 07:00 Proposed Procedures p Endoscopic Retrograde Cholangiopancreatogram - Mis Ellison MD s Esophagogastroduodenoscopy - Mis Ellison MD Height/Weight Height: 5 ft Weight: 62.5 kg Allergies Allergy/AdvReac Type Severity Reaction Status Date / Time bacitracin Allergy Intermediate Hives, Verified 05/30/21 16:06 blisters clavulanic acid Allergy Intermediate Hives Verified 05/30/21 16:06 diphenhydramine Allergy Intermediate Hives Verified 05/30/21 16:06 iodine Allergy Intermediate Hives Verified 05/30/21 16:06 ketorolac Allergy Intermediate Hives Verified 05/30/21 16:06 meclofenamic acid Allergy Intermediate Hives Verified 05/30/21 16:06 neomycin Allergy Intermediate Hives, Verified 05/30/21 16:06 blisters NSAIDS (Non-Steroidal Allergy Intermediate Hives Verified 05/30/21 16:06 Anti-Inflamma (tolerates Celebrex) oxycodone Allergy Intermediate Hives Verified 05/30/21 16:06 (tolerates Vicodin) polymyxin B Allergy Intermediate Hives, Verified 05/30/21 16:06 blisters quinine Allergy Intermediate Hives Verified 05/30/21 16:06 Sulfa (Sulfonamide Allergy Intermediate Hives Verified 05/30/21 16:06 Antibiotics) tramadol Allergy Intermediate Hives, Verified 05/30/21 16:06 itching adhesive Allergy Mild Rash Verified 05/30/21 16:07 latex Allergy Mild Rash Verified 05/30/21 16:06 povidone-iodine Allergy Mild Rash Verified 05/30/21 16:07 doxycycline Allergy Anaphylaxis Unverified 05/30/21 15:04 meperidine AdvReac Intermediate N/V Verified 05/30/21 16:07 prednisone AdvReac Intermediate Made Verified 05/30/21 16:07 "bones soft" aspirin AdvReac Mild N/V Verified 05/30/21 16:08 Medications Home Medications Medication Instructions Recorded Confirmed Last Taken cholecalciferol (vitamin D3) 10 400 units PO QPM 05/26/18 05/30/21 05/17/20 09:00 mcg (400 unit) capsule fluticasone propionate 50 1 sprays INTNAS BID PRN gm 05/26/18 05/30/21 05/17/20 09:00 mcg/actuation nasal spray,suspension (Flonase Allergy Relief) loperamide 2 mg capsule 2 mg PO Q4H PRN 05/26/18 05/30/21 02/24/19 magnesium oxide 400 mg (241.3 mg 400 mg PO BID tab 05/26/18 05/30/21 05/17/20 20:00 magnesium) tablet docusate sodium 100 mg capsule 100 mg PO BID PRN 02/26/19 05/30/21 05/16/20 zoledronic acid 5 mg/100 mL in 5 mg/kg IV YEARLY ml 03/02/19 05/30/21 12/20/20 mannitol 5 %-water intravenous piggybck propylene glycol 0.6 % eye drops 1 % OP UD PRN ml 03/23/19 05/30/21 05/15/20 (Systane Complete) ipratropium bromide 17 2 puffs INH DAILY PRN #12.9 gm 04/29/19 05/30/21 05/18/20 11:00 mcg/actuation HFA aerosol inhaler silver sulfadiazine 1 % topical 1 applic TOPICAL BID PRN 10/08/19 05/30/21 Unknown cream triamcinolone acetonide 0.5 % 1 applic TOPICAL BID PRN #60 g 08/01/20 05/30/21 Unknown topical cream escitalopram oxalate 20 mg tablet 20 mg PO QAM #90 tab 11/03/20 05/30/21 Unknown (Lexapro) metoprolol succinate 100 mg 150 mg PO DAILY #45 tab 02/22/21 05/30/21 Unknown tablet,extended release 24 hr nitroglycerin 0.4 mg sublingual 0.4 mg SUBLINGUAL Q5M PRN #25 tab 02/22/2105/30 Unknown tablet (Nitrostat) nortriptyline 10 mg capsule 10 mg PO QAM #90 cap 02/27/21 05/30/21 Unknown nortriptyline 25 mg capsule 25 mg PO HS #90 cap 03/12/21 05/30/21 Unknown levothyroxine 75 mcg tablet 75 mcg PO QAM #90 tab 03/15/21 05/30/21 Unknown Singulair 10 mg tablet 10 mg PO QPM #90 tab NS 04/17/21 05/30/21 Unknown (montelukast) atorvastatin 40 mg tablet 40 mg PO DAILY #90 tab 05/25/21 05/30/21 Unknown aspirin 81 mg tablet,delayed 81 mg PO DAILY 05/30/21 05/30/21 Unknown release Active Medications Generic Name Dose Route Start Last Admin Trade Name Larry PRN Reason Stop Dose Admin Atorvastatin Calcium 40 mg 05/31/21 09:00 05/31/21 09:09 Atorvastatin 40 Mg Tab PO 06/30/21 08:59 Not Given DAILY SIDDHARTHA Escitalopram Oxalate 20 mg 05/31/21 09:00 05/31/21 09:09 Escitalopram Oxalate 20 Mg Tab PO 06/30/21 08:59 Not Given QAM SIDDHARTHA Potassium Chloride/Sodium Chloride 20 meq in 1,000 mls @ 100 mls/hr 05/30/21 22:50 05/31/21 10:02 Normal Saline W/20 Meq Kcl IV 06/29/21 22:49 100 mls/hr .Q10H SIDDHARTHA Administration Pantoprazole Sodium 40 mg/ 10 mls @ 5 mls/min 05/31/21 09:00 05/31/21 09:09 Syringe IV 06/30/21 08:59 Not Given BID SIDDHARTHA Ampicillin Sodium/Sulbactam 108 mls @ 200 mls/hr 05/31/21 09:00 05/31/21 10:46 Sodium 3,000 mg/ Sodium IV 06/10/21 08:59 Infused Chloride Q6H SIDDHARTHA Infusion Protocol Levothyroxine Sodium 75 mcg 05/31/21 06:30 05/31/21 10:01 Levothyroxine Sodium 75 Mcg Tablet PO 06/30/21 06:29 Not Given DAILYBB SIDDHARTHA Magnesium Oxide 400 mg 05/31/21 09:00 05/31/21 09:09 Magnesium Oxide 400 Mg Tab PO 06/30/21 08:59 Not Given BID SIDDHARTHA Nortriptyline HCl 10 mg 05/31/21 09:00 05/31/21 09:09 Nortriptyline Hcl 10 Mg Cap PO 06/30/21 08:59 Not Given QAM SIDDHARTHA Past Medical History Medical History Allergic rhinitis Anemia Chronic, hgb baseline 10-11 range per chart review Anxiety Asthma stable Chronic back pain Coronary artery disease cardiac catheterization -02/22/2021:Impression: 1. Severe CAD involving ostial/proximal LAD (100%), filling via left to left and right to left collaterals. 2. Otherwise nonobstructive CAD involving the mid circumflex. 3. No aortic stenosis. 4. Normal left-sided filling pressure. Depression GERD (gastroesophageal reflux disease) controlled History of right breast cancer s/p lumpectomy (1969)- no chemo or xrt Hx of fracture Right shoulder AC joint fracture (10/2020) due to traumatic event > healing without surgical intervention Hyperlipidemia Hypertension Hypothyroidism IBS (irritable bowel syndrome) Insomnia Ischemic cardiomyopathy Lumbar facet joint syndrome Lumbar spinal stenosis Osteoarthritis Rheumatoid arthritis On Methotrexate Sacroiliitis Steroid-induced osteoporosis Past Family History Family History Grandmother (Paternal) Family history of diabetes mellitus Grandmother (Maternal) Family history of diabetes mellitus Father Coronary heart disease Alzheimer disease Myocardial infarction Osteoarthritis COPD (chronic obstructive pulmonary disease) Lung disease Mother Myocardial infarction COPD (chronic obstructive pulmonary disease) Other No family history of adverse response to anesthesia Denies family history of Ovarian cancer Prostate cancer Breast cancer Colorectal cancer Past Surgical History Surgical History H/O arthroscopy of shoulder L shoulder H/O cataract extraction R/L eye History of arthroscopy of left knee History of breast biopsy History of foot surgery R/L History of lumpectomy of right breast History of right knee joint replacement History of tonsillectomy History of total abdominal hysterectomy and bilateral salpingo-oophorectomy d/t endometriosis S/P ORIF (open reduction internal fixation) fracture Left ankle S/p reverse total shoulder arthroplasty Left reverse TSA (02/26/19): Grade view 2, MAC#3, ETT 7 + PNB at [facility] (scope patch used) Social History Smoking Status: Never smoker Do You Dip or Chew Tobacco: No Hx Alcohol Use: No Hx Substance Use: No substance use type: does not use Physical Exam Vital Signs Last Vital Signs Temp 97.5 F L 05/31/21 12:13 Pulse 71 05/31/21 12:13 Resp 16 05/31/21 12:13 BP 114/71 05/31/21 12:13 Pulse Ox 94 09/30/21 12:13 Testing Laboratory Results 05/31/21 04:38 05/31/21 04:38 PT 11.7 Seconds (9.0-12.0) 05/30/21 14:13 INR 1.2 (0.9-1.1) H 05/30/21 14:13 APTT 31.0 Seconds (21.0-31.0) 05/30/21 14:13 Blood Type A Negative 05/30/21 23:18 Antibody Screen NEGATIVE 05/30/21 23:18 Laboratory Tests 05/30/21 15:25 SARS-CoV-2 (PCR) POSITIVE A* Electrocardiogram Date: 05/30/21 Poor data quality, interpretation may be adversely affected Normal sinus rhythm, rate [address] and T wave abnormality Prolonged QT Abnormal ECG When compared with ECG of 29-DEC-2020 11:40, Nonspecific T wave abnormality now evident in Inferior leads Nonspecific T wave abnormality now evident in Anterior leads T wave inversion no longer evident in Lateral leads Confirmed by Vladimir Martin ([id number]) on 05/31/2021 5:51:10 AM Chest X-Ray Date: 05/30/21 Findings: + NAD Cardiac Catheterization Date: 02/22/21 Impression: 1. Severe CAD involving ostial/proximal LAD (100%), filling via left to left and right to left collaterals. 2. Otherwise nonobstructive CAD involving the mid circumflex. 3. No aortic stenosis. 4. Normal left-sided filling pressure. Plan: 1. Optimize medical therapy. 2. Consider CT surgery evaluation to discuss revascularization options given reduced LV systolic function and symptoms. Cervical Spine Date: 12/29/20 IMPRESSION: 1. No evidence for cervical spine instability during flexion or extension. 2. Severe multilevel degenerative changes within the cervical spine.
[2021-05-31 16:07] LABS: Hematocrit (blood only) 30.6 % (37-47); Hemoglobin 9.6 g/dL (12.0-16.0); Mean Corpuscular Hemoglobin 32.8 pg (25-34); Mean Corpuscular Hgb Conc 31.4 g/dL (32-36); Mean Corpuscular Volume 104.4 fL (80-100); Mean Platelet Volume 10.3 fL (7.4-10.4); Platelet Count 496 K/uL (130-400); RDW Coefficient of Variation 18.1 % (11.5-14.5); RDW Standard Deviation 68.2 fL (36.4-46.3); Red Blood Count 2.93 M/uL (4.2-5.4); White Blood Count 13.49 K/uL (4.8-10.8)
[2021-05-31] MEDS ORDERED: MIDAZOLAM HCL 1 MG/ML 2ML VIAL ONE (17:00)
[2021-05-31] MEDS ORDERED: fentaNYL citrate 100 MCG/2 ML VIAL ONE ×2 (17:00→17:01)
[2021-05-31] MEDS ORDERED: DEXAMETHASONE SOD INJ 4 MG/ML VIAL ONE (17:01)
[2021-05-31] MEDS ORDERED: PROPOFOL IV EMULSION 10 MG/ML 20 ML VIAL IV ONE (17:01)
[2021-05-31] MEDS ORDERED: SUCCINYLCHOLINE CHLORIDE 20 MG/ML 10 ML VIAL IV ONE (17:01)
[2021-05-31] MEDS ORDERED: ONDANSETRON INJ 2 MG/ML 2 ML VIAL ONE (17:01)
[2021-05-31] MEDS ORDERED: LIDOCAINE 2% 2 ML VIAL/AMP(20MG/ML) INFIL ONE (17:01)
[2021-05-31 17:10] LABS: Basophils # (auto) 0.06 K/uL (0-0.2); Basophils % (auto) 0.4 %; Eosinophils # (auto) 0.04 K/uL (0-0.5); Eosinophils % (auto) 0.3 %; Immature Granulocytes # (auto) 0.05 K/uL (0.00-0.02); Immature Granulocytes % (auto) 0.4 %; Lymphocytes # (auto) 7.96 K/uL (1.2-3.4); Monocytes # (auto) 1.24 K/uL (0.11-0.59); Monocytes % (auto) 9.2 %; Neutrophils # (auto) 4.14 K/uL (1.4-6.5); Neutrophils % (auto) 30.7 %; Ovalocytes 1+; Polychromasia 2+
[2021-05-31] MEDS ORDERED: PHENYLEPHRINE HCL 10 MG/ML VIAL ONE (17:27)
--- NOTE | 2021-05-31 17:30 | History & Physical Bridge Note ---
Date of Service May 31, 2021 History & Physical Bridge Note I have examined the patient, reviewed the History & Physical and in the interval since the performance of the History & Physical I have noted the following changes of clinical significance: no changes noted
--- NOTE | 2021-05-31 18:29 | Operative Report ---
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 Any exceptions are noted below.
--- NOTE | 2021-05-31 18:55 | GI REPORT ---
Patient Name: Tammy Browne Procedure Date: 05/31/2021 5:30 PM Date of : 1950 Admit Type: Inpatient Age: 71 Gender: Female Attending MD: Mis Ellison MD Procedure: Upper GI endoscopy Providers: Mis Ellison MD Referring MD: Levi Latif Md Indications: Anemia Medicines: General Anesthesia Complications: No immediate complications. Estimated Blood Loss: Estimated blood loss: none. Procedure: Pre-Anesthesia Assessment: - Prior to the procedure, a History and Physical was performed, and patient medications, allergies and sensitivities were reviewed. The patient's tolerance of previous anesthesia was reviewed. - The risks and benefits of the procedure and the sedation options and risks were discussed with the patient. All questions were answered and informed consent was obtained. - Patient identification and proposed procedure were verified prior to the procedure by the physician and the nurse. The procedure was verified in the procedure room. - Pre-procedure physical examination revealed no contraindications to sedation. After obtaining informed consent, the endoscope was passed under direct vision. Throughout the procedure, the patient's blood pressure, pulse, and oxygen saturations were monitored continuously. The Endoscope was introduced through the mouth, and advanced to the second part of duodenum. After obtaining informed consent, the endoscope was passed under direct vision. Throughout the procedure, the patient's blood pressure, pulse, and oxygen saturations were monitored continuously.The upper GI endoscopy was accomplished without difficulty. The patient tolerated the procedure well. Findings: The examined esophagus was normal. The entire examined stomach was normal. The duodenal bulb and second portion of the duodenum were normal. Impression: - Normal esophagus. - Normal stomach. - Normal duodenal bulb and second portion of the duodenum. - No specimens collected. Recommendation: - Perform an ERCP today. Mis Ellison MD 05/31/2021 6:55:32 PM This report has been signed electronically. Note Initiated On: 05/31/2021 5:30 PM Number of Addenda: 0 I attest to the content of the Intraoperative Record and orders documented therein, exceptions below {[id number]}
--- NOTE | 2021-05-31 18:59 | GI REPORT ---
Patient Name: Tammy Browne Procedure Date: 05/31/2021 5:32 PM Date of : 1950 Admit Type: Inpatient Age: 71 Gender: Female Attending MD: Mis Ellison MD Procedure: ERCP Providers: Mis Ellison MD Referring MD: Levi Latif Md Indications: Bile duct stone on Computed Tomogram Scan, For therapy of bile duct stone(s) Medicines: General Anesthesia Complications: No immediate complications. Estimated Blood Loss: Estimated blood loss: none. Procedure: Pre-Anesthesia Assessment: - Prior to the procedure, a History and Physical was performed, and patient medications, allergies and sensitivities were reviewed. The patient's tolerance of previous anesthesia was reviewed. - The risks and benefits of the procedure and the sedation options and risks were discussed with the patient. All questions were answered and informed consent was obtained. - Patient identification and proposed procedure were verified prior to the procedure by the physician and the nurse. The procedure was verified in the procedure room. - Pre-procedure physical examination revealed no contraindications to sedation. After obtaining informed consent, the scope was passed under direct vision. Throughout the procedure, the patient's blood pressure, pulse, and oxygen saturations were monitored continuously. The Scope was introduced through the mouth, and advanced to the duodenum and used to inject contrast into the bile duct. The ERCP was accomplished without difficulty. The patient tolerated the procedure well. Findings: The beef grader film was normal. The esophagus was successfully intubated under direct vision. The scope was advanced to a normal major papilla in the descending duodenum without detailed examination of the pharynx, larynx and associated structures, and upper GI tract. The upper GI tract was grossly normal. A 0.035 inch angled standard wire was passed into the biliary tree. The Fusion OMNI sphincterotome was passed over the guidewire and the bile duct was then deeply cannulated. Contrast was injected. I personally interpreted the bile duct images. Ductal flow of contrast was adequate. Image quality was adequate. Contrast extended to the main bile duct. Opacification of the entire biliary tree was successful. The maximum diameter of the ducts was 8 mm. Biliary sphincterotomy was made with a monofilament traction (standard) sphincterotome using ERBE electrocautery. There was no post-sphincterotomy bleeding. The biliary tree was swept with an 11.5 mm balloon starting at the bifurcation. Many stones were removed. No stones remained. Pus was swept from the duct. One 10 Fr by 7 cm plastic biliary stent with a single external flap and a single internal flap was placed into the common bile duct. Bile flowed through the stent. The stent was in good position. PD was not cannulated. Impression: - Choledocholithiasis was found. Complete removal was accomplished by biliary sphincterotomy and balloon extraction. - One plastic biliary stent was placed into the common bile duct. Recommendation: - Return patient to hospital al for ongoing care. - Refer to surgery for cholecystectomy. - Repeat ERCP in 8 weeks to remove stent. If the patient is deemed a nonsurgical candidate then will arrange for EUS guided GB drainage using an Axios stent. Mis Ellison MD 05/31/2021 6:59:01 PM This report has been signed electronically. Note Initiated On: 05/31/2021 5:32 PM Number of Addenda: 0 I attest to the content of the Intraoperative Record and orders documented therein, exceptions below {[id number]}
--- NOTE | 2021-05-31 19:00 | Fluoroscopy Report ---
[place] ERCP biliary ductal CLINICAL INDICATION: [place] ^ERCP - COVID +. TECHNIQUE: 11 views were obtained with the C-arm in the OR with the above procedure. Total fluoroscop y time was 54 seconds. Total skin dose was 16.93 mGy. Comparison: Comparison is made to CT abdomen and pelvis 05/31/2021 FINDINGS/IMPRESSION: Intraoperative images of ERCP and stent placement. Please correlate with intraoperative fluoroscopy and operative report. ACT 112: Negative or not required by law. Electronically signed by: Vicente Edwards M.D. 05/31/2021 6:58 PM
[2021-05-31] MEDS ORDERED: ATROPINE SULFATE 1MG/2.5ML SYR ONE (19:03)
[2021-05-31] MEDS ORDERED: ePHEDrine sulfate 50 MG/ML SYR ONE (19:04)
--- NOTE | 2021-05-31 19:48 | Billing Data ---
Date of Service May 31, 2021 Coding Level of Care Code 45702 Initial Inpt Care Lvl 3
--- NOTE | 2021-05-31 19:59 | Anesthesiology Progress Note ---
Date of Service May 31, 2021 Anesthesia Post Procedure Vital Signs Vital Signs: Temp Pulse Pulse Pulse Resp BP BP 05/31/21 19:39 36.6 C 74 20 92/53 L 05/31/21 19:15 37.4 C 69 20 95/55 L 05/31/21 19:05 74 20 96/54 L 05/31/21 18:55 37.4 C 72 18 94/55 L 05/31/21 17:15 37.1 C 72 18 128/68 05/31/21 15:02 36.6 C 70 20 119/76 05/31/21 12:13 36.4 C L 71 16 114/71 05/31/21 09:00 114/65 05/31/21 08:45 113/68 05/31/21 08:30 60 19 05/31/21 08:15 127/60 05/31/21 08:00 112/63 05/31/21 07:45 126/60 05/31/21 07:34 129/78 05/31/21 07:26 36.8 C 59 L 21 129/78 05/31/21 07:15 106/59 L 05/31/21 07:00 119/64 05/31/21 06:45 110/64 05/31/21 06:30 55 L 15 113/58 L 05/31/21 06:15 59 L 16 108/59 L 05/31/21 06:00 57 L 15 101/65 05/31/21 05:45 58 L 19 05/31/21 05:30 57 L 18 109/50 L 05/31/21 05:15 57 L 16 112/76 05/31/21 05:05 36.8 C 66 16 124/59 L 05/31/21 04:50 36.7 C 60 16 95/53 L 05/31/21 04:00 57 L 100/58 L 05/31/21 03:30 57 L 99/54 L 05/31/21 03:00 59 L 99/55 L 05/31/21 02:40 57 L 119/63 05/31/21 01:30 60 104/52 L 05/31/21 01:00 58 L 98/53 L 05/31/21 00:00 55 L 96/55 L 05/30/21 23:30 59 L 100/56 L 05/30/21 23:00 105/53 L 05/30/21 22:30 55 L 16 105/54 L 05/30/21 22:10 36.8 C 59 L 18 98/53 L 05/30/21 22:00 98/53 L 05/30/21 21:30 102/55 L 05/30/21 21:00 107/62 05/30/21 20:30 60 23 05/30/21 20:00 60 23 103/55 L Pulse Ox 05/31/21 19:39 92 05/31/21 19:15 96 05/31/21 19:05 92 05/31/21 18:55 99 05/31/21 17:15 93 05/31/21 15:02 93 05/31/21 12:13 94 05/31/21 09:00 99 05/31/21 08:45 05/31/21 08:30 99 05/31/21 08:15 05/31/21 08:00 05/31/21 07:45 05/31/21 07:34 05/31/21 07:26 05/31/21 07:15 05/31/21 07:00 05/31/21 06:45 05/31/21 06:30 100 05/31/21 06:15 100 05/31/21 06:00 100 05/31/21 05:45 100 05/31/21 05:30 100 05/31/21 05:15 100 05/31/21 05:05 100 05/31/21 04:50 99 05/31/21 04:00 97 05/31/21 03:30 97 05/31/21 03:00 05/31/21 02:40 05/31/21 01:30 05/31/21 01:00 05/31/21 00:00 05/30/21 23:30 05/30/21 23:00 05/30/21 22:30 97 05/30/21 22:10 97 05/30/21 22:00 05/30/21 21:30 05/30/21 21:00 05/30/21 20:30 96 05/30/21 20:00 99 Transfer of Care Handoff Completed per policy Notes Mental Status: alert / awake / arousable Patient Amnestic to Procedure: Yes Nausea / Vomiting: adequately controlled Pain: adequately controlled Airway Patency, RR, SpO2: stable & adequate BP & HR: stable & adequate Hydration State: stable & adequate Anesthetic Complications: no major complications apparent
[2021-05-31 20:42] LABS: Basophils # (auto) 0.03 K/uL (0-0.2); Basophils % (auto) 0.2 %; Eosinophils # (auto) 0.02 K/uL (0-0.5); Eosinophils % (auto) 0.1 %; Hematocrit (blood only) 31.1 % (37-47); Hemoglobin 9.6 g/dL (12.0-16.0); Immature Granulocytes # (auto) 0.05 K/uL (0.00-0.02); Immature Granulocytes % (auto) 0.4 %; Lymphocytes # (auto) 4.66 K/uL (1.2-3.4); Lymphocytes % (auto) 34.3 %; Mean Corpuscular Hemoglobin 32.7 pg (25-34); Mean Corpuscular Hgb Conc 30.9 g/dL (32-36); Mean Corpuscular Volume 105.8 fL (80-100); Mean Platelet Volume 10.1 fL (7.4-10.4); Monocytes # (auto) 0.57 K/uL (0.11-0.59); Monocytes % (auto) 4.2 %; Neutrophils # (auto) 8.25 K/uL (1.4-6.5); Neutrophils % (auto) 60.8 %; Nucleated RBC # (auto) 0.03 K/uL (0-0); Nucleated RBC % (auto) 0.2 %; Platelet Count 473 K/uL (130-400); RDW Coefficient of Variation 18.6 % (11.5-14.5); RDW Standard Deviation 68.9 fL (36.4-46.3); Red Blood Count 2.94 M/uL (4.2-5.4); White Blood Count 13.58 K/uL (4.8-10.8)
[2021-05-31] MEDS: NORTRIPTYLINE HCL 25 MG CAP PO SCH (21:34)
[2021-05-31] MEDS: MONTELUKAST SODIUM 10 MG TABLET PO SCH (21:34)
[2021-06-01] MEDS: AMPICILLIN/SULBACTAM SOD 3,000 MG in 0.9 % SODIUM CHLORIDE 100 ML IV SCH ×4 (03:41→23:49)
[2021-06-01] MEDS: LEVOTHYROXINE SODIUM 75 MCG TABLET PO SCH (05:34)
[2021-06-01 06:22] LABS: Hematocrit (blood only) 30.2 % (37-47); Hemoglobin 9.3 g/dL (12.0-16.0); Mean Corpuscular Hemoglobin 32.9 pg (25-34); Mean Corpuscular Hgb Conc 30.8 g/dL (32-36); Mean Corpuscular Volume 106.7 fL (80-100); Mean Platelet Volume 10.3 fL (7.4-10.4); Platelet Count 474 K/uL (130-400); RDW Coefficient of Variation 18.8 % (11.5-14.5); RDW Standard Deviation 71.7 fL (36.4-46.3); Red Blood Count 2.83 M/uL (4.2-5.4); White Blood Count 11.06 K/uL (4.8-10.8)
[2021-06-01 06:58] LABS: Albumin Globulin Ratio 0.5 (0.9-2); Albumin Level 1.7 gm/dl (3.4-5.0); BUN Creatinine Ratio 23.6 (10-20); Bilirubin,Total 0.6 mg/dl (0.2-1); Calcium 7.6 mg/dl (8.5-10.1); Creatinine Clr Calc Pharmacy 62.2 ml/min; Est GFR (African American) 100.7 ml/min; Est GFR (Non-African American) 86.9 ml/min; Globulin 3.7 gm/dl (2.5-4.0); Potassium 5.2 mmol/L (3.5-5.1); Total Protein 5.4 gm/dl (6.4-8.2)
[2021-06-01 07:26] LABS: Basophils # (auto) 0.03 K/uL (0-0.2); Basophils % (auto) 0.3 %; Immature Granulocytes # (auto) 0.04 K/uL (0.00-0.02); Immature Granulocytes % (auto) 0.4 %; Lymphocytes # (auto) 5.51 K/uL (1.2-3.4); Lymphocytes % (auto) 49.8 %; Monocytes # (auto) 0.29 K/uL (0.11-0.59); Monocytes % (auto) 2.6 %; Neutrophils # (auto) 5.19 K/uL (1.4-6.5); Neutrophils % (auto) 46.9 %; Polychromasia 1+; Tear Drop Cells 1+
--- NOTE | 2021-06-01 07:31 | Hospitalist Progress Note ---
Date of Service June 01, 2021 Assessment & Plan (1) Anemia: Plan: Tammy Caceres is a 71-year-old female with past medical history significant for coronary artery disease, hypertension hyperlipidemia, hypothyroidism, GERD, and osteoporosis; who presents for concerns of low blood pressure throughout the last day with associated weakness for the last several weeks. Overall: Doing well, multiple stones removed on ERCP, pending hgb stability, anticipate PT/OT and dispo if hgb remains stable with GI followup as outpt. No surgery recommended for choledoco at this time. Anemia: - On admit Patient presented with hemoglobin of 8.5 acutely decreased from 1 week prior of 10.2 -No clinical signs of bleeding. -Recheck continued blood loss with hemoglobin of 7.1 -Per admitting team two-physician consent on paperwork for transfusions given positive COVID-19 status however patient expressed agreement to transfusions -CT-A/P: No signs of bleed, choledoco as noted below -Hemoccult pending -Repeat Hgb prior to transfusions in a.m. demonstrating consistent levels of 7.2 Appropriate rise in hemoglobin to 9.6 then downtrended -Protonix changed to PO, drip d/eliud -MCV >100 with low folate and normal B12. Repletion ordered - Unasyn ppx, wilma coverage as below EGD: Esophogus, stomach, duodenal bulb and 2nd portion of duodenum normla. No UGIB appreciated - Surgery; Defer wilma at this time, f/u if clinically changes or as short term outpt - Hgb downtrend in morning, repeat this evening (2) COVID-19: Plan: COVID-19: -Positive COVID-19 test on admission -Tested positive 12/2020, interval negative tests in x2 in January, retested positive on admission. No cough/sx, but pt with mild new O2 requirement in ERand CT suggestive on PNA (see above). Per prior discussion w/ infection control will tx as re-infection/possible delta rather than residual positive -Maintain on COVID-19 precautions - Defer steroids given concern for GIB - No home o2 requirement. Req 2L in the morning - +insp spirometry (3) Choledocholithiasis: Plan: Choledocolithiasis,? Cholecystitis - CT-A/P Prelim: Mild CBD dilatation and probable choledocholithiasis. Cholelithiasis, with mod gallbladder distension. Cannot r/o cholecystitis. New bilateral pleural effusions and infiltrates ? PNA. No SBO, free air, free fluid - WBC downtrending - AlkPhos 153, Tbili 0.4 - GI consultd. EGD as above, ERCP: Choledoco found and completely removed. Repeat ERCP in 8 weeks to remove stent, op EUS guide GB as not surgical candidate. No surgical intervention at this time. - d/eliud abx (4) Hypertension: Plan: Defer in the setting of acute blood loss (5) Hyperlipidemia: Plan: Continue atorvastatin (6) Hypotension: Plan: Hypotension: -Questionable relationship of hypotension to anemia with acute blood loss versus reduced oral intake over the last 2 weeks given exacerbation of trigeminal neuralgia -Responsive to fluid -Replete fluids as above, anemia management as above (7) Coronary artery disease: Plan: Aspirin held Continue atorvastatin 40 mg daily Metoprolol as noted Patient not on ARTURO/ARB [employer] [place] no chest pain, (8) Asthma: Plan: Continue fluticasone inhalers Continue ipratropium as needed No wheezing on exam Plan: DVT prophylaxis: SCDs, pharmacal prophylaxis contraindicated in the setting of potential bleeding Diet: N.p.o. Disposition: PCU PT/OT pending. Follow hgb, if remains stable anticipate stable for dispo Admission and Anticipated Discharge Date Admission Date: May 30, 2021 Dariela Hull is seen at the bedside today. She is in no acute distress, appears comfortable. Feels her breathing is 'ok', was winded this morning getting up to the bathroom but otherwise well. No fevers/chills/sweats/cough/belly pain. 1+ nonbloody large BM withotu melena today. Review of Systems Review of Systems: 10 point RoS negative except as noted in HPI Physical Exam Physical Exam: General: A&Ox3. NAD. Cooperative. HEENT: Atraumatic, normocephalic. Visual acuity and hearing grossly intact. Pulm: Trace bibasilar crackles otherwise CTAB A&P. -wheezes, -rales, -rhonchi. Symmetrical chest rise. No increase work of breathing. No respiratory distress. Cardiac: RRR, -mrg. Radial pulses intact and symmetrical. Abdominal: Nontender, nondistended, soft. BS present. Extremities: Moving all extremities equally, sensation in hands and feet grossly intact, distal extremity strength grossly intact bilaterally Results & Data Results & Data ([facility]) Vital Signs (Past 12 Hours) Vital Signs Temp Pulse Pulse Resp BP Pulse Ox 06/01/21 03:38 36.8 C 80 20 130/77 97 06/01/21 00:05 36.4 C L 75 20 127/72 96 05/31/21 23:13 77 05/31/21 22:30 36.8 C 76 16 94 05/31/21 20:00 36.8 C 73 18 107/64 94 05/31/21 19:45 36.7 C 84 20 92/55 L 98 05/31/21 19:39 36.6 C 74 20 92/53 L 92 PG Care Time/CCT Total # of Minutes Spent Total Time Spent with Patient: Total time spent is greater than 50% in coordination of care (as documented) at patient's floor/unit and/or counseling patient: Coding Level of Care Code 08743 Subseq Hosp Care Lvl 3 Diagnoses Anemia D64.9 COVID-19 U07.1 Choledocholithiasis K80.50 Hypertension I10 Hyperlipidemia E78.5 Hypotension I95.9 Hypotension type: unspecified hypotension type Coronary artery disease I25.10 Asthma J45.909 (1) Hypotension Hypotension type: unspecified hypotension type Qualified Code(s): I95.9 - Hypotension, unspecified
[2021-06-01] MEDS: LACTATED RINGER'S 1,000 ML IV SCH ×2 (08:03→15:15)
[2021-06-01] MEDS: MAGNESIUM OXIDE 400 MG TAB PO SCH ×2 (08:08→20:55)
[2021-06-01] MEDS: PANTOprazole 40 MG in SYRINGE 0 ML IV SCH (08:09)
[2021-06-01] MEDS: ESCITALOPRAM OXALATE 20 MG TAB PO SCH (08:09)
[2021-06-01] MEDS: FOLIC ACID 1 MG TAB PO SCH (08:09)
[2021-06-01] MEDS: ATORVASTATIN 40 MG TAB PO SCH (08:09)
[2021-06-01] MEDS: NORTRIPTYLINE HCL 10 MG CAP PO SCH (08:09)
--- NOTE | 2021-06-01 09:11 | Surgery Consultation ---
Date of Consultation June 01, 2021 Assessment & Plan (1) Choledocholithiasis: POD 1 ERCP minimal symptoms as outpatient WBC improving, LFTs normal Given improvement after ERCP, uncertain COVID status and cardiac disease, would defer cholecystectomy at this time. If she continues to do well, we can further discuss lap wilma as outpatient in the near future. Resume diet, continue antibiotics. History of Present Illness Attending Physician: Levi Latif MD History of Present Illness 71 y/o female with CAD not amenable to stenting and too high risk for CABG re ferred to the ED for hypotension noted by her at home. Also has acute on chronic anemia and was transfused. She also had abd CT showing CBD stones and WBC 13,000 and underwent ERCP last evening. She denies abdominal pain this morning, has been mostly asymptomatic except for some nausea over the past month. Was COVID positive on admission, but first tested positive in December and indicates she has had "three positive and three negative" since then. Allergies Allergy/AdvReac Type Severity Reaction Status Date / Time bacitracin Allergy Intermediate Hives, Verified 05/30/21 16:06 blisters clavulanic acid Allergy Intermediate Hives Verified 05/30/21 16:06 diphenhydramine Allergy Intermediate Hives Verified 05/30/21 16:06 iodine Allergy Intermediate Hives Verified 05/30/21 16:06 ketorolac Allergy Intermediate Hives Verified 05/30/21 16:06 meclofenamic acid Allergy Intermediate Hives Verified 05/30/21 16:06 neomycin Allergy Intermediate Hives, Verified 05/30/21 16:06 blisters NSAIDS (Non-Steroidal Allergy Intermediate Hives Verified 05/30/21 16:06 Anti-Inflamma (tolerates Celebrex) oxycodone Allergy Intermediate Hives Verified 05/30/21 16:06 (tolerates Vicodin) polymyxin B Allergy Intermediate Hives, Verified 05/30/21 16:06 blisters quinine Allergy Intermediate Hives Verified 05/30/21 16:06 Sulfa (Sulfonamide Allergy Intermediate Hives Verified 05/30/21 16:06 Antibiotics) tramadol Allergy Intermediate Hives, Verified 05/30/21 16:06 itching adhesive Allergy Mild Rash Verified 05/30/21 16:07 latex Allergy Mild Rash Verified 05/30/21 16:06 povidone-iodine Allergy Mild Rash Verified 05/30/21 16:07 doxycycline Allergy Anaphylaxis Unverified 05/30/21 15:04 meperidine AdvReac Intermediate N/V Verified 05/30/21 16:07 prednisone AdvReac Intermediate Made Verified 05/30/21 16:07 "bones soft" aspirin AdvReac Mild N/V Verified 05/30/21 16:08 Home Medications Medication Instructions Recorded Confirmed Type cholecalciferol (vitamin D3) 10 400 units PO QPM 05/26/18 05/30/21 History mcg (400 unit) capsule fluticasone propionate 50 1 sprays INTNAS BID PRN gm 05/26/18 05/30/21 History mcg/actuation nasal spray,suspension (Flonase Allergy Relief) loperamide 2 mg capsule 2 mg PO Q4H PRN 05/26/18 05/30/21 History magnesium oxide 400 mg (241.3 mg 400 mg PO BID tab 05/26/18 05/30/21 History magnesium) tablet docusate sodium 100 mg capsule 100 mg PO BID PRN 02/26/19 05/30/21 History zoledronic acid 5 mg/100 mL in 5 mg/kg IV YEARLY ml 03/02/19 05/30/21 History mannitol 5 %-water intravenous piggybck propylene glycol 0.6 % eye drops 1 % OP UD PRN ml 03/23/19 05/30/21 History (Systane Complete) ipratropium bromide 17 2 puffs INH DAILY PRN #12.9 gm 04/29/19 05/30/21 Rx mcg/actuation HFA aerosol inhaler silver sulfadiazine 1 % topical 1 applic TOPICAL BID PRN 10/08/19 05/30/21 History cream triamcinolone acetonide 0.5 % 1 applic TOPICAL BID PRN #60 g 08/01/20 05/30/21 R x topical cream escitalopram oxalate 20 mg tablet 20 mg PO QAM #90 tab 11/03/20 05/30/21 Rx (Lexapro) metoprolol succinate 100 mg 150 mg PO DAILY #45 tab 02/22/21 05/30/21 Rx tablet,extended release 24 hr nitroglycerin 0.4 mg sublingual 0.4 mg SUBLINGUAL Q5M PRN #25 tab 02/22/21 05/30/21 Rx tablet (Nitrostat) nortriptyline 10 mg capsule 10 mg PO QAM #90 cap 02/27/21 05/30/21 Rx nortriptyline 25 mg capsule 25 mg PO HS #90 cap 03/12/21 05/30/21 Rx levothyroxine 75 mcg tablet 75 mcg PO QAM #90 tab 03/15/21 05/30/21 Rx Singulair 10 mg tablet 10 mg PO QPM #90 tab NS 04/17/21 05/30/21 Rx (montelukast) atorvastatin 40 mg tablet 40 mg PO DAILY #90 tab 05/25/21 05/30/21 Rx aspirin 81 mg tablet,delayed 81 mg PO DAILY 05/30/21 05/30/21 History release Patient History Medical History Allergic rhinitis Anemia Chronic, hgb baseline 10-11 range per chart review Anxiety Asthma stable Chronic back pain Coronary artery disease cardiac catheterization -02/22/2021:Impression: 1. Severe CAD involving ostial/proximal LAD (100%), filling via left to left and right to left collaterals. 2. Otherwise nonobstructive CAD involving the mid circumflex. 3. No aortic stenosis. 4. Normal left-sided filling pressure. Depression GERD (gastroesophageal reflux disease) controlled History of right breast cancer s/p lumpectomy (1969)- no chemo or xrt Hx of fracture Right shoulder AC joint fracture (10/2020) due to traumatic event > healing without surgical intervention Hyperlipidemia Hypertension Hypothyroidism IBS (irritable bowel syndrome) Insomnia Ischemic cardiomyopathy Lumbar facet joint syndrome Lumbar spinal stenosis Osteoarthritis Rheumatoid arthritis On Methotrexate Sacroiliitis Steroid-induced osteoporosis Surgical History H/O arthroscopy of shoulder L shoulder H/O cataract extraction R/L eye History of arthroscopy of left knee History of breast biopsy History of foot surgery R/L History of lumpectomy of right breast History of right knee joint replacement History of tonsillectomy History of total abdominal hysterectomy and bilateral salpingo-oophorectomy d/t endometriosis S/P ORIF (open reduction internal fixation) fracture Left ankle S/p reverse total shoulder arthroplasty Left reverse TSA (02/26/19): Grade view 2, MAC#3, ETT 7 + PNB at [facility] (scope patch used) Family History Grandmother (Paternal) Family history of diabetes mellitus Grandmother (Maternal) Family history of diabetes mellitus Father Coronary heart disease Alzheimer disease Myocardial infarction Osteoarthritis COPD (chronic obstructive pulmonary disease) Lung disease Mother Myocardial infarction COPD (chronic obstructive pulmonary disease) Other No family history of adverse response to anesthesia Denies family history of Ovarian cancer Prostate cancer Breast cancer Colorectal cancer Social History Smoking Status: Never smoker Second Hand Exposure: No; Do You Dip or Chew Tobacco: No; Tobacco Cessation Education Requested by Patient: No Hx Alcohol Use: No Hx Substance Use: No Preferred Language: Barbadian Communication Ability: Effective Visual Impairment: Limited Hearing Ability: Normal Flask Pusher Required: No Beliefs That Will Affect Care: None marital status: Current Living Situation: Spouse Current Living Situation Comment: granddaughter lives with pt too current occupational status: retired How many Children do You have: 2 Other Information That Helps Us Care for You: No Feels Safe at Home: Yes Safety Concerns: Feels Safe At This Time Childhood Exposure to Second-Hand Smoke: Yes caffeine: Yes (coffee) during the past year weight has: remained stable Dental Care, Regularly: No Physical Activity Frequency: Daily Physical Activity Frequency Comment: chores Seatbelt Use: always Sunscreen Use: No Assistive Devices: None Review of Systems Constitutional: no fever, no chills and no malaise Respiratory: no cough and no dyspnea Gastrointestinal: + abdominal pain (some epigastric at times) and + nausea; no vomiting, no change in bowel habits, no diarrhea/loose stools, no blood in s tools and no melena Physical Exam Constitutional: WD/WN, vitals as above Respiratory: normal respiratory effort; no respiratory distress Cardiovascular: Rate/Rhythm: regular rate and regular rhythm Gastrointestinal (Abdomen): Inspection/Auscultation: abdomen not distended Percussion/Palpation: + abdomen tender (mild generalized, not loaclaizing to RUQ) and abdomen soft Results & Data ([facility]) Vital Signs (Past 12 Hours) Vital Signs Temp Pulse Pulse Resp BP Pulse Ox 06/01/21 08:06 36.6 C 72 14 109/69 96 06/01/21 03:38 36.8 C 80 20 130/77 97 06/01/21 00:05 36.4 C L 75 20 127/72 96 05/31/21 23:13 77 05/31/21 22:30 36.8 C 76 16 94 PG Care Time/CCT Total # of Minutes Spent Total Time Spent with Patient: Total time spent is greater than 50% in coordination of care (as documented) at patient's floor/unit and/or counseling patient: Coding Level of Care Code 59611 Initial Inpt Care Lvl 1 Diagnoses Choledocholithiasis K80.50
[2021-06-01] MEDS: NSS + 20MEQ KCL 20 MEQ/1,000 ML BAG IV SCH (09:40)
--- NOTE | 2021-06-01 10:06 | Communication Note ---
Date of Service: June 01, 2021 S/P ERCP yesterday w/ removal of retained biliary stones, stent placed. This AM, WBC improving. Liver profile stable. Vitals stable and remains afebrile. Would continue with supportive care, consider, general surgery consultation vs OP axios. Please recall over the weekend with any questions or concerns.
[2021-06-01] MEDS: PANTOprazole 40 MG TAB PO SCH (16:28)
[2021-06-01 17:42] LABS: Hematocrit (blood only) 28.9 % (37-47); Hemoglobin 8.9 g/dL (12.0-16.0)
[2021-06-01] MEDS ORDERED: IRON SUCROSE 300 MG in SODIUM CHLORIDE 0.9% 250 ML IV ONE (18:30)
[2021-06-01] MEDS: MONTELUKAST SODIUM 10 MG TABLET PO SCH (20:54)
[2021-06-01] MEDS: NORTRIPTYLINE HCL 25 MG CAP PO SCH (20:57)
[2021-06-02] MEDS: AMPICILLIN/SULBACTAM SOD 3,000 MG in 0.9 % SODIUM CHLORIDE 100 ML IV SCH ×3 (04:57→22:00)
[2021-06-02] MEDS: LEVOTHYROXINE SODIUM 75 MCG TABLET PO SCH (06:01)
[2021-06-02 07:41] LABS: Hematocrit (blood only) 27.9 % (37-47); Hemoglobin 8.5 g/dL (12.0-16.0); Mean Corpuscular Hemoglobin 32.7 pg (25-34); Mean Corpuscular Hgb Conc 30.5 g/dL (32-36); Mean Corpuscular Volume 107.3 fL (80-100); Platelet Count 381 K/uL (130-400); RDW Coefficient of Variation 18.9 % (11.5-14.5); RDW Standard Deviation 72.4 fL (36.4-46.3); White Blood Count 14.73 K/uL (4.8-10.8)
[2021-06-02 07:59] LABS: BUN Creatinine Ratio 22.9 (10-20); Calcium 7.7 mg/dl (8.5-10.1); Creatinine Clr Calc Pharmacy 69.3 ml/min; Est GFR (African American) 105.5 ml/min; Potassium 4.5 mmol/L (3.5-5.1)
[2021-06-02 08:24] LABS: Anisocytosis Present; Basophils # (auto) 0.01 K/uL (0-0.2); Basophils % (auto) 0.1 %; Eosinophils # (auto) 0.01 K/uL (0-0.5); Eosinophils % (auto) 0.1 %; Immature Granulocytes # (auto) 0.05 K/uL (0.00-0.02); Immature Granulocytes % (auto) 0.3 %; Lymphocytes % (auto) 49.6 %; Monocytes # (auto) 1.58 K/uL (0.11-0.59); Monocytes % (auto) 10.7 %; Neutrophils # (auto) 5.78 K/uL (1.4-6.5); Neutrophils % (auto) 39.2 %; Polychromasia 1+; Smudge Cells Present; Tear Drop Cells 1+
[2021-06-02] MEDS: NORTRIPTYLINE HCL 10 MG CAP PO SCH (08:25)
[2021-06-02] MEDS: ATORVASTATIN 40 MG TAB PO SCH (08:25)
[2021-06-02] MEDS: MAGNESIUM OXIDE 400 MG TAB PO SCH ×2 (08:25→20:36)
[2021-06-02] MEDS: PANTOprazole 40 MG TAB PO SCH (08:25)
[2021-06-02] MEDS: ESCITALOPRAM OXALATE 20 MG TAB PO SCH (08:25)
[2021-06-02] MEDS: FOLIC ACID 1 MG TAB PO SCH (08:26)
[2021-06-02] MEDS ORDERED: TIOTROPIUM BROMIDE 5 PUFF/90 MCG INH INH SCH (09:00)
--- NOTE | 2021-06-02 13:27 | Hospitalist Progress Note ---
Date of Service June 02, 2021 Assessment & Plan (1) Anemia: Plan: Tammy Caceres is a 71-year-old female with past medical history significant for coronary artery disease, hypertension hyperlipidemia, hypothyroidism, GERD, and osteoporosis; who presents for concerns of low blood pressure throughout the last day with associated weakness for the last several weeks. Overall: Doing well, multiple stones removed on ERCP, hemoglobin continues to downtrend patient with some increased lightheadedness. No melena/BRB per rectum. Source unclear, GI bleeding study ordered. Anemia 2/2 severe iron deficiency with impaired production versus occult GI bleed - On admit Patient presented with hemoglobin of 8.5 acutely decreased from 1 week prior of 10.2 -No clinical signs of bleeding. -Recheck continued blood loss with hemoglobin of 7.1 -Per admitting team two-physician consent on paperwork for transfusions given positive COVID-19 status however patient expressed agreement to transfusions -CT-A/P: No signs of bleed, choledoco as noted below -Hemoccult pending -Repeat Hgb prior to transfusions in a.m. demonstrating consistent levels of 7.2 Appropriate rise in hemoglobin to 9.6 then downtrended -Protonix changed to PO, drip d/eliud -MCV >100 with low folate and normal B12. Repletion ordered Severe iron deficiency: Iron 34, TIBC 169, transferrin 155, ferritin 307 - Unasyn ppx, wilma coverage as below EGD: Esophogus, stomach, duodenal bulb and 2nd portion of duodenum normla. No UGIB appreciated - Surgery; Defer wilma at this time, f/u if clinically changes or as short term outpt - Hgb continues to downtrend, patient with vitamin and iron repletion. Continue checks every 8 hours, bleeding study ordered Venofer x1 06/01, x2 06/02 (2) COVID-19: Plan: COVID-19: -Positive COVID-19 test on admission -Tested positive 12/2020, interval negative tests in x2 in January, retested positive on admission. No cough/sx, but pt with mild new O2 requirement in ERand CT suggestive on PNA (see above). Per prior discussion w/ infection control will tx as re-infection/possible delta rather than residual positive -Maintain on COVID-19 precautions - Defer steroids given concern for GIB - No home o2 requirement. Req 2L in the morning - +insp spirometry (3) Choledocholithiasis: Plan: Choledocolithiasis,? Cholecystitis - CT-A/P Prelim: Mild CBD dilatation and probable choledocholithiasis. Cholelithiasis, with mod gallbladder distension. Cannot r/o cholecystitis. New bilateral pleural effusions and infiltrates ? PNA. No SBO, free air, free fluid - AlkPhos 153, Tbili 0.4 - GI consultd. EGD as above, ERCP: Choledoco found and completely removed. Repeat ERCP in 8 weeks to remove stent, op EUS guide GB as not surgical candidate. No surgical intervention at this time. - d/eliud abx, WBC slight bump. 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 Disposition: PCU Admission and Anticipated Discharge Date Admission Date: May 30, 2021 Dariela Hull is seen at the bedside this morning. She reports that she feels more fatigued than yesterday, but otherwise unchanged. She has had some loose, quick bowel movements which are brown and without bright red blood or melena. Otherwise denies shortness of breath, fever, chills, syncope, presyncope, chest pain, pain with urination. Course discussed with patient and her by phone, no additional questions at bedside. Review of Systems Review of Systems: Constitutional: Denies fever, chills, endorses fatigue Eyes: Denies vision change ENT: Denies ear pain, sore throat, sinus pain Cardiovascular: Denies Chest pain, chest pressure, palpitations, extremity swelling Respiratory: Denies shortness of breath, cough, sputum production, difficulty breathing Gastrointestinal: See HPI Genitourinary: Denies dysuria, urinary frequency Musculoskeletal: Denies acute focal weakness, muscle aches/pain, joint aches/pain Integumentary:Denies acute rash, lesions, bruising Neurological: Denies headache, numbness, tingling, focal weakness Physical Exam Physical Exam: General: A&Ox3. NAD. Cooperative. HEENT: Atraumatic, normocephalic. Visual acuity grossly intact, hearing grossly intact. Pulm: CTAB A&P. -wheezes, -rales, -rhonchi. Symmetrical chest rise. No increase work of breathing. No respiratory distress. Cardiac: RRR, systolic murmur present. Radial pulses intact and symmetrical. Abdominal: Nontender, nondistended, soft. BS present. Results & Data Results & Data ([facility]) Vital Signs (Past 12 Hours) Vital Signs Temp Pulse Resp BP Pulse Ox 06/02/21 11:26 36.5 C 99 H 20 122/80 93 06/02/21 06:20 36.5 C 74 17 121/73 96 06/02/21 04:40 36.5 C 75 18 122/71 94 PG Care Time/CCT Total # of Minutes Spent Total Time Spent with Patient: Total time spent is greater than 50% in coordination of care (as documented) at patient's floor/unit and/or counseling patient: Coding Level of Care Code 22192 Subseq Hosp Care Lvl 3 Diagnoses Anemia D64.9 COVID-19 U07.1 Choledocholithiasis K80.50 Hypertension I10 Hyperlipidemia E78.5 Hypotension I95.9 Hypotension type: unspecified hypotension type Coronary artery disease I25.10 Asthma J45.909 (1) Hypotension Hypotension type: unspecified hypotension type Qualified Code(s): I95.9 - Hypotension, unspecified
[2021-06-02] MEDS ORDERED: IRON SUCROSE 200 MG in 0.9 % SODIUM CHLORIDE 100 ML IV ONE (14:00)
[2021-06-02 14:20] LABS: Hematocrit (blood only) 28.2 % (37-47); Hemoglobin 8.6 g/dL (12.0-16.0); Mean Corpuscular Hemoglobin 32.1 pg (25-34); Mean Corpuscular Hgb Conc 30.5 g/dL (32-36); Mean Corpuscular Volume 105.2 fL (80-100); Platelet Count 353 K/uL (130-400); RDW Coefficient of Variation 18.6 % (11.5-14.5); RDW Standard Deviation 70.9 fL (36.4-46.3); Red Blood Count 2.68 M/uL (4.2-5.4); White Blood Count 18.67 K/uL (4.8-10.8)
[2021-06-02 14:54] LABS: Anisocytosis Present; Basophilic Stippling 1+; Basophils # (auto) 0.03 K/uL (0-0.2); Basophils % (auto) 0.2 %; Eosinophils # (auto) 0.02 K/uL (0-0.5); Eosinophils % (auto) 0.1 %; Immature Granulocytes # (auto) 0.12 K/uL (0.00-0.02); Immature Granulocytes % (auto) 0.6 %; Lymphocytes # (auto) 8.94 K/uL (1.2-3.4); Lymphocytes % (auto) 47.9 %; Monocytes # (auto) 2.13 K/uL (0.11-0.59); Monocytes % (auto) 11.4 %; Neutrophils # (auto) 7.43 K/uL (1.4-6.5); Neutrophils % (auto) 39.8 %; Polychromasia 1+; Tear Drop Cells 1+
[2021-06-02] MEDS ORDERED: SODIUM CHLORIDE 0.9% 1000ML 500 ML IV ONE (17:58)
[2021-06-02] MEDS: MONTELUKAST SODIUM 10 MG TABLET PO SCH (20:36)
[2021-06-02] MEDS: NORTRIPTYLINE HCL 25 MG CAP PO SCH (20:36)
[2021-06-02 23:03] LABS: Hematocrit (blood only) 27.8 % (37-47); Hemoglobin 8.5 g/dL (12.0-16.0); Mean Corpuscular Hemoglobin 32.8 pg (25-34); Mean Corpuscular Hgb Conc 30.6 g/dL (32-36); Mean Corpuscular Volume 107.3 fL (80-100); Platelet Count 343 K/uL (130-400); RDW Coefficient of Variation 18.5 % (11.5-14.5); RDW Standard Deviation 71.8 fL (36.4-46.3); Red Blood Count 2.59 M/uL (4.2-5.4); White Blood Count 16.43 K/uL (4.8-10.8)
[2021-06-02 23:33] LABS: Basophils # (auto) 0.03 K/uL (0-0.2); Basophils % (auto) 0.2 %; Eosinophils # (auto) 0.03 K/uL (0-0.5); Eosinophils % (auto) 0.2 %; Immature Granulocytes # (auto) 0.07 K/uL (0.00-0.02); Immature Granulocytes % (auto) 0.4 %; Lymphocytes # (auto) 7.89 K/uL (1.2-3.4); Monocytes # (auto) 2.04 K/uL (0.11-0.59); Monocytes % (auto) 12.4 %; Neutrophils # (auto) 6.37 K/uL (1.4-6.5); Neutrophils % (auto) 38.8 %; Polychromasia 1+; Tear Drop Cells 1+
[2021-06-03] MEDS: AMPICILLIN/SULBACTAM SOD 3,000 MG in 0.9 % SODIUM CHLORIDE 100 ML IV SCH ×2 (04:19→07:53)
[2021-06-03] MEDS: LEVOTHYROXINE SODIUM 75 MCG TABLET PO SCH (06:32)
[2021-06-03 07:32] LABS: Hematocrit (blood only) 30.5 % (37-47); Hemoglobin 9.3 g/dL (12.0-16.0); Mean Corpuscular Hemoglobin 32.5 pg (25-34); Mean Corpuscular Hgb Conc 30.5 g/dL (32-36); Mean Corpuscular Volume 106.6 fL (80-100); Mean Platelet Volume 10.4 fL (7.4-10.4); Platelet Count 363 K/uL (130-400); RDW Coefficient of Variation 18.4 % (11.5-14.5); RDW Standard Deviation 71.7 fL (36.4-46.3); Red Blood Count 2.86 M/uL (4.2-5.4); White Blood Count 14.84 K/uL (4.8-10.8)
[2021-06-03 07:53] LABS: Basophils # (auto) 0.02 K/uL (0-0.2); Basophils % (auto) 0.1 %; Echinocytes 1+; Eosinophils # (auto) 0.03 K/uL (0-0.5); Eosinophils % (auto) 0.2 %; Immature Granulocytes # (auto) 0.05 K/uL (0.00-0.02); Immature Granulocytes % (auto) 0.3 %; Lymphocytes # (auto) 7.14 K/uL (1.2-3.4); Lymphocytes % (auto) 48.1 %; Monocytes % (auto) 12.1 %; Neutrophils % (auto) 39.2 %; Polychromasia 1+; Tear Drop Cells 1+
[2021-06-03] MEDS: MAGNESIUM OXIDE 400 MG TAB PO SCH (07:55)
[2021-06-03] MEDS: PANTOprazole 40 MG TAB PO SCH (07:55)
[2021-06-03] MEDS: NORTRIPTYLINE HCL 10 MG CAP PO SCH (07:55)
[2021-06-03] MEDS: FOLIC ACID 1 MG TAB PO SCH (07:55)
[2021-06-03] MEDS: ATORVASTATIN 40 MG TAB PO SCH (07:55)
[2021-06-03] MEDS: ESCITALOPRAM OXALATE 20 MG TAB PO SCH (07:55)
[2021-06-03 08:10] LABS: BUN Creatinine Ratio 17.1 (10-20); Calcium 7.4 mg/dl (8.5-10.1); Creatinine Clr Calc Pharmacy 66.9 ml/min; Est GFR (African American) 103.9 ml/min; Est GFR (Non-African American) 89.7 ml/min; Potassium 3.8 mmol/L (3.5-5.1)
[2021-06-03] MEDS ORDERED: SODIUM CHLORIDE 0.9% 1000ML 250 ML IV ONE (08:29)
[2021-06-03] MEDS ORDERED: CIPROFLOXACIN 500 MG TAB PO SCH (09:00)
[2021-06-03] MEDS: metroNIDAZOLE 500 MG TAB PO SCH ×2 (09:10→16:10)
--- NOTE | 2021-06-03 16:07 | Discharge Summary ---
Date of Service June 03, 2021 Admission HPI Per Admitting Provider Tammy Caceres is a 71-year-old female with past medical history significant for coronary artery disease, hypertension hyperlipidemia, hypothyroidism, GERD, and osteoporosis; who presents for concerns of low blood pressure throughout the last day with associated weakness for the last several weeks. Otherwise has been feeling relatively well, with the exception only of a recent flare of her trigeminal neuralgia due to shingles with some herpetic lesions on her tongue. This started about 2 weeks ago when she completed treatment and has felt much better other than feeling weak over the last several days. Did have COVID-19 earlier in this year in October, and currently does not feel similarly to how she had previously felt. Did have a negative COVID-19 tests between now and then. Presently denies any nausea, vomiting, abdominal pain, diarrhea, dark black tarry stools, or bright red blood per rectum. Had a colonoscopy some years ago, and during that time she was told she had diverticulitis as well as had external hemorrhoids but did not need repeat colonoscopy. Admission Exam Per Admitting Provider Constitutional: WD/WN, vitals as above Eyes: PERRL, conjunctivae normal, anicteric sclerae Respiratory: normal respiratory effort, lungs clear to auscultation Auscultation: no crackles, no rales, no rhonchi and no wheezes Cardiovascular: Rate/Rhythm: regular rate and regular rhythm Heart Sounds: no gallop, no murmur and no cardiac rub Vessels: normal peripheral pulses; no JVD Extremities: no edema Gastrointestinal (Abdomen): Inspection/Auscultation: normal bowel sounds; abdomen not distended Percussion/Palpation: abdomen soft; abdomen nontender and no guarding Musculoskeletal: no cyanosis or clubbing, extremities motor strength 5/5 Skin: no rashes, warm and dry Neurologic: PERRL, EOMI, accommodation nl, no face palsy, no dysarthria CN's II-XI intact bilaterally and moves all extremities Psychiatric: Orientation: alert and oriented x 3 Principal Diagnosis Iron deficiency, folate deficiency anemia Choledocholithiasis, equivocal cholelithiasis Covid positive Discharge Exam General: A&Ox3. NAD. Cooperative. HEENT: Atraumatic, normocephalic. Visual acuity grossly intact, hearing grossly intact. Pulm: CTAB A&P. -wheezes, -rales, -rhonchi. Symmetrical chest rise. No increase work of breathing. No respiratory distress. Cardiac: RRR, systolic murmur present. Radial pulses intact and symmetrical. Abdominal: Nontender, nondistended, soft. BS present. Extremities: Ambulated in the room with OT, patient with good gait and strength. Moving all extremities equally, back panel padder strength and hip flexion 5/5. Extremities are warm and dry. Radial pulse and PT pulse intact bilaterally and symmetrical, patient with heart rate of 90s while ambulating which decreases following rest. Discharge Data Allergies Allergy/AdvReac Type Severity Reaction Status Date / Time bacitracin Allergy Intermediate Hives, Verified 05/30/21 16:06 blisters clavulanic acid Allergy Intermediate Hives Verified 05/30/21 16:06 diphenhydramine Allergy Intermediate Hives Verified 05/30/21 16:06 iodine Allergy Intermediate Hives Verified 05/30/21 16:06 ketorolac Allergy Intermediate Hives Verified 05/30/21 16:06 meclofenamic acid Allergy Intermediate Hives Verified 05/30/21 16:06 neomycin Allergy Intermediate Hives, Verified 05/30/21 16:06 blisters NSAIDS (Non-Steroidal Allergy Intermediate Hives Verified 05/30/21 16:06 Anti-Inflamma (tolerates Celebrex) oxycodone Allergy Intermediate Hives Verified 05/30/21 16:06 (tolerates Vicodin) polymyxin B Allergy Intermediate Hives, Verified 05/30/21 16:06 blisters quinine Allergy Intermediate Hives Verified 05/30/21 16:06 Sulfa (Sulfonamide Allergy Intermediate Hives Verified 05/30/21 16:06 Antibiotics) tramadol Allergy Intermediate Hives, Verified 05/30/21 16:06 itching adhesive Allergy Mild Rash Verified 05/30/21 16:07 latex Allergy Mild Rash Verified 05/30/21 16:06 povidone-iodine Allergy Mild Rash Verified 05/30/21 16:07 doxycycline Allergy Anaphylaxis Unverified 05/30/21 15:04 meperidine AdvReac Intermediate N/V Verified 05/30/21 16:07 prednisone AdvReac Intermediate Made Verified 05/30/21 16:07 "bones soft" aspirin AdvReac Mild N/V Verified 05/30/21 16:08 Consultations 05/30/21 19:29 ED Decision to Admit Stat 05/31/21 09:22 Consult Gastroenterology Routine 06/01/21 07:24 Consult General Surgery Routine Procedures Performed Operation Date: 05/31/21 07:00 Actual Procedures p Endoscopic Retrograde Cholangiopancreatography(Not Applicable) - Mis Ellison MD Ordered Studies 05/31/21 [place] ERCP biliary ductal Routine 05/31/21 01:55 CT abd pelvis IV con only Urgent Hospital Course (1) Anemia: Tammy Caceres is a 71-year-old female with past medical history sign ificant for coronary artery disease, hypertension hyperlipidemia, hypothyroidism, GERD, and osteoporosis; who presented for concerns of low blood pressure throughout the last day with associated weakness for the last several weeks. Overall patient did well with multiple stones removed on ERCP. Hemoglobin up trended following treatment with iron and folic acid, transferrin saturation was low as noted below. No active bleeding was seen on EGD. CT scan was equivocal for cholecystitis, but patient had a leukocytosis which improved with antibiotic treatment. Surgical consultation was obtained, patient was not felt to be a good surgical candidate at the time due to cardiac risk and Covid positivity. Was recommended to treat medically and to follow-up as outpatient for either outpatient cholecystectomy or EUS drainage. Follow-up with both surgery and GI were scheduled. Close return precautions were given to patient and her . To do as outpatient: 1. Continue ciprofloxacin and Flagyl until definitive management of cholecystitis obtained 2. Follow-up with GI for reevaluation, possible outpatient drainage of gallbladder 3. Follow-up with surgery for reevaluation for outpatient cholecystectomy 4. Repeat CBC/CMP within 1 week, referred to primary care physician 5. Routine PCP follow-up Anemia 2/2 severe iron deficiency with impaired production versus occult GI bleed - On admit Patient presented with hemoglobin of 8.5 acutely decreased from 1 week prior of 10.2 -No clinical signs of bleeding. -Recheck continued blood loss with hemoglobin of 7.1 -Per admitting team two-physician consent on paperwork for transfusions given positive COVID-19 status however patient expressed agreement to transfusions -CT-A/P: No signs of bleed, choledoco as noted below -Repeated Hgb prior to transfusions in a.m. demonstrating consistent levels of 7.2 Appropriate rise in hemoglobin to 9.6 -Protonix changed to PO, drip d/eliud -MCV >100 with low folate and normal B12. Repletion ordered Severe iron deficiency: Iron 34, TIBC 169, transferrin 155, ferritin 307 EGD: Esophogus, stomach, duodenal bulb and 2nd portion of duodenum normla. No UGIB appreciated Venofer x1 10/, x2 10/2 Hemoglobin uptrending on day of discharge (2) COVID-19: COVID-19: -Positive COVID-19 test on admission -Tested positive 12/2020, interval negative tests in x2 in January, retested positive on admission. No cough/sx, but pt with mild new O2 requirement in ERand CT suggestive on PNA (see above). Per prior discussion w/ infection control will tx as re-infection/possible delta rather than residual positive -Maintain on COVID-19 precautions - Defer steroids given concern for GIB - No home o2 requirement. No oxygen requirement at discharge, no indication for steroids (3) Choledocholithiasis: Choledocolithiasis w/ Cholecystitis - CT-A/P Prelim: Mild CBD dilatation and probable choledocholithiasis. Cholelithiasis, with mod gallbladder distension. With the goal for cholecystitis. New bilateral pleural effusions and infiltrates ? PNA. No SBO, free air, free fluid - AlkPhos 153, Tbili 0.4 - GI consulted. EGD as above, ERCP: Choledoco found and completely removed. Repeat ERCP in 8 weeks to remove stent, op EUS guide GB as not surgical candidate. No surgical intervention at this time per surgery due to acute Covid positivity and cardiac risk, recommended follow up as outpatient. Patient with leukocytosis, improved with antibiotic treatment. Suspected underlying cholecystitis, patient discharged to continue Cipro/Flagyl with follow-up to GI/surgery for definitive management - Unasyn ppx, converted to cipro/flagyl due on discharge (4) Hypertension: Defer in the setting of acute blood loss (5) Hyperlipidemia: Continue atorvastatin (6) Hypotension: Hypotension: -Questionable relationship of hypotension to anemia with acute blood loss versus reduced oral intake over the last 2 weeks given exacerbation of trigeminal neuralgia -Responsive to fluid -Replete fluids as above, anemia management as above (7) Coronary artery disease: Aspirin held Continue atorvastatin 40 mg daily Metoprolol as noted 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 Disposition: PCU Total Time Total Time Spent Total Time Spent (In Minutes): Total time spent preparing discharge on day of discharge including direct patient care, review of labs and images, documentation, and communication with family 75 minutes. Discharge Plan Discharge Items Patient Disposition: Home - Self-Care Reason For Visit: BLOOD PRESSURE SPIKING Discharge Diagnosis: Choledocholithiasis Anemia Activity: As commented below Non-emergency contact: Primary Care Provider Call non-emergency contact if: you have any medication questions, your symptoms worsen, your pain is not controlled and you have a fever Follow-up/Referrals: Tayla Kent DO [Primary Care Provider] - Rajiv Snyder MD [Physician] - Diet: Heart Healthy Addtl Attending Provider Instructions: You were seen in the hospital for low blood pressure and weakness. You are found to be anemic (low blood levels) and also were found to have gallstones (gallbladder stones) in the ducts leading from the gallbladder. Your gallstones were treated with a procedure called ERCP during which they were removed and a stent was placed. The stent is not permanent and will need to be removed in approximately 8 weeks. Due to your underlying medical conditions and coronary disease, and lack of infection seen in the gallbladder, it was not recommended to have surgical removal of your gallbladder at this time. You will have follow-up with gastroenterology who may wish to perform another procedure to drain the gallbladder as an outpatient. You did not show signs of bleeding in your stomach or upper intestines on endoscopy. You are being discharged on 2 antibiotics as noted below. These are to treat for an infected gallbladder, which will require additional evaluation and management at your appointment below. You are being discharged on an antibiotic, ciprofloxacin. Please take ciprofloxacin 500 mg by mouth twice daily. 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 You may need to take this medication until drainage or removal of your gallbladder is performed. You are being discharged on an antibiotic, metronidazole. Please take metronidazole 500 mg by mouth every 8 hours. 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 You may need to take this medication until drainage or removal of your gallbladder is performed. You are noted to have iron deficiency and deficiency in a vitamin which can lead to anemia. You have been prescribed an iron supplement and folic acid vitamin supplement as noted below. A followup appointment is being scheduled for you with your primary care provider. You should be seen seen within 1 week. You should receive a call to confirm this appointment. If you do not receive a call within 48 hours to confirm this appointment, or need to change this appointment, please call the provider's office at [phone]. A followup appointment is being scheduled for you with Gastroenterology, Dr. Snyder. You should be seen seen within one week. You should receive a call to confirm this appointment. If you do not receive a call within 48 hours to confirm this appointment, or need to change this appointment, please call the provider's office at [phone]. If you develop any new or worsening symptoms including fever, chills, sweats, chest pain, chest pressure, difficulty breathing, uncontrolled nausea/vomiting, rash, wheezing, passing out or nearly passing out, bleeding, black/bloody bowel movements, or other new or concerning symptoms please call your primary care physician at [phone], or call 911 for re-evaluation in the emergency department if you are very concerned. Pending Studies at Discharge: Yes (Follow-up CBC/CMP, outpatient follow-up for gallbladder removal/drainage) Stand-Alone Forms: My [facility], Smoking Cessation Medications and DC Order Prescriptions: New ciprofloxacin HCl 500 mg Tablet 500 mg PO BID 7 Days Qty: 14 RF: 2 metronidazole 500 mg Tablet 500 mg PO Q8H 7 Days Qty: 21 RF: 2 folic acid 1 mg Tablet 1 mg PO QAM 30 Days Qty: 30 RF: 0 ferrous sulfate 325 mg (65 mg iron) tablet 325 mg PO Q OTHER DAY 30 Days Qty: 15 RF: 0 Continued loperamide 2 mg capsule 2 mg PO Q4H PRN (Reason: loose stool) RF: 0 magnesium oxide 400 mg (241.3 mg magnesium) tablet 400 mg PO BID RF: 0 fluticasone propionate [Flonase Allergy Relief] 50 mcg/actuation spray,suspension 1 sprays INTNAS BID PRN (Reason: Nasal Congestion) RF: 0 cholecalciferol (vitamin D3) 400 unit capsule 400 units PO QPM RF: 0 Systane Complete 0.6 % drops 1 % OP UD PRN (Reason: Dry Eye(S)) RF: 0 ipratropium bromide 17 mcg/actuation HFA aerosol inhaler 2 puffs INH DAILY PRN (Reason: shortness of breath or wheezing) Qty: 12.9 RF: 0 triamcinolone acetonide 0.5 % cream 1 applic topical BID PRN (Reason: skin irritation) Qty: 60 RF: 1 escitalopram oxalate [Lexapro] 20 mg tablet 20 mg PO QAM Qty: 90 RF: 1 nortriptyline 10 mg capsule 10 mg PO QAM Qty: 90 RF: 1 levothyroxine 75 mcg tablet 75 mcg PO QAM Qty: 90 RF: 1 montelukast [Singulair] 10 mg tablet 10 mg PO QPM Qty: 90 RF: 1 atorvastatin 40 mg tablet 40 mg PO DAILY Qty: 90 RF: 3 zoledronic hzld-uynjclbw-phrzs 5 mg/100 mL piggyback 5 mg/kg IV YEARLY RF: 0 nortriptyline 25 mg capsule 25 mg PO HS Qty: 90 RF: 3 docusate sodium 100 mg Capsule 100 mg PO BID PRN (Reason: Constipation) RF: 0 silver sulfadiazine 1 % cream 1 applic topical BID PRN (Reason: Rash) RF: 0 nitroglycerin [Nitrostat] 0.4 mg Tablet, Sublingual 0.4 mg sublingual Q5M PRN (Reason: chest pain) Qty: 25 RF: 3 metoprolol succinate 100 mg Tablet Extended Release 24 Hr 150 mg PO DAILY Qty: 45 RF: 5 aspirin 81 mg Tablet,Delayed Release (Dr/Ec) 81 mg PO DAILY RF: 0 Discharge Orders: Discharge Order (Routine); Ordered 06/03/21 Ordered By: Levi Latif Admission Data Admit Date/Time: 05/30/21 21:46 Attending Provider: Levi Latif Admit Provider: Tulio Villar Primary Care Provider: Tayla Kent Other Providers: Diego Duggan Irphan E. ; Ashok Miller Coding Level of Care Code D/C DAY MANAGEMENT >30 MINS Diagnoses Anemia D64.9 COVID-19 U07.1 Choledocholithiasis K80.50 Hypertension I10 Hyperlipidemia E78.5 Hypotension I95.9 Hypotension type: unspecified hypotension type Coronary artery disease I25.10 Asthma J45.909
[2021-06-03] MEDS ORDERED: SODIUM CHLORIDE 0.9% 1000ML 500 ML IV ONE (16:18)
== END 2021-06-03 18:29 | disposition home or self-care (01) | DRG 177 ==
LOC: ED 11:58 → SUATTDRO 21:46 → EDINP 21:46 → 2S 05-31 09:20

== ENCOUNTER 2021-08-24 08:51 | Inpatient (IN) ==
[2021-08-24] MEDS ORDERED: DEXTROSE 50% 50 ML SYRINGE IV ONE (09:11)
[2021-08-24] MEDS ORDERED: SODIUM CHLORIDE 0.9% 1000ML 2,000 ML IV SCH (09:15)
[2021-08-24 09:52] LABS: Hemoglobin 7.4 g/dL (12.0-16.0); Mean Corpuscular Hemoglobin 31.6 pg (25-34); Mean Corpuscular Hgb Conc 29.6 g/dL (32-36); Mean Corpuscular Volume 106.8 fL (80-100); Mean Platelet Volume 11.5 fL (7.4-10.4); Platelet Count 187 K/uL (130-400); RDW Coefficient of Variation 24.4 % (11.5-14.5); RDW Standard Deviation 90.5 fL (36.4-46.3); Red Blood Count 2.34 M/uL (4.2-5.4); White Blood Count 6.37 K/uL (4.8-10.8)
[2021-08-24 09:54] LABS: Anisocytosis Present; Basophils # (auto) 0.01 K/uL (0-0.2); Basophils % (auto) 0.2 %; Eosinophils # (auto) 0.14 K/uL (0-0.5); Eosinophils % (auto) 2.2 %; Hypochromasia Present; Immature Granulocytes % (auto) 1.6 %; Lymphocytes # (auto) 0.56 K/uL (1.2-3.4); Lymphocytes % (auto) 8.8 %; Macrocytosis Present; Monocytes # (auto) 0.27 K/uL (0.11-0.59); Monocytes % (auto) 4.2 %; Neutrophils # (auto) 5.29 K/uL (1.4-6.5); Polychromasia 1+; Toxic Vacuolation 1+
[2021-08-24 10:02] LABS: Alanine Aminotransferase 15 (12-78); Albumin Level 1.2 gm/dl (3.4-5.0); Aspartate Aminotransferase 40 U/L (15-37); BUN Creatinine Ratio 10.6 (10-20); Blood Urea Nitrogen 16 mg/dl (7-18); Calcium 8.6 mg/dl (8.5-10.1); Carbon Dioxide 20 mmol/L (21-32); Chloride 104 mmol/L (98-107); Est GFR (African American) 40.8 ml/min; Est GFR (Non-African American) 35.2 ml/min; Glucose 57 mg/dl (70-99); Potassium 4.8 mmol/L (3.5-5.1); Sodium 136 mmol/L (136-145)
[2021-08-24] MEDS ORDERED: SODIUM CHLORIDE 0.9% 250 ML IV PRN ×3 (10:07→18:43)
[2021-08-24 10:13] LABS: Albumin Globulin Ratio 0.3 (0.9-2); Alkaline Phosphatase 240 U/L (45-117); Bilirubin,Total 0.7 mg/dl (0.2-1); Creatine Kinase 57 U/L (26-192); Globulin 4.4 gm/dl (2.5-4.0); Thyroid Stimulating Hormone 0.446 uIu/ml (0.300-4.500); Total Protein 5.6 gm/dl (6.4-8.2)
[2021-08-24] MEDS ORDERED: CEFEPIME 2,000 MG/20 ML VIAL IV STA (10:24)
--- NOTE | 2021-08-24 10:30 | Electrocardiogram Report ---
Test Reason : Blood Pressure : / mmHG Vent. Rate : 064 BPM Atrial Rate : 064 BPM P-R Int : 176 ms QRS Dur : 100 ms QT Int : 468 ms P-R-T Axes : -18 -18 114 degrees QTc Int : 482 ms Normal sinus rhythm Possible Anterior infarct , age undetermined Abnormal ECG When compared with ECG of 30-MAY-2021 14:55, Borderline criteria for Anterior infarct are now Present Nonspecific T wave abnormality, improved in Inferior leads T wave inversion less evident in Anterolateral leads QT has lengthened Confirmed by Ghassan Natarajan ([id number]) on 08/24/2021 10:30:40 AM Referred By: Confirmed By:Ghassan Natarajan
--- NOTE | 2021-08-24 10:30 | XRay Report ---
XR chest 1V portable CLINICAL HISTORY: weakness TECHNIQUE: Single frontal radiograph of the chest was obtained. Comparison: Comparison is made to chest one view 05/30/2021 FINDINGS: Right venous catheter tip is in the cavoatrial junction. Bilateral reverse shoulder arthroplasties ar e seen. The cardiomediastinal silhouette is stable. Lungs are underinflated but clear. No evidence of pleural effusion or pneumothorax. IMPRESSION: Satisfactory position of right venous catheter. ACT 112: Negative or not required by law. Electronically signed by: Vicente Edwards M.D. 08/24/2021 10:29 AM
[2021-08-24] MEDS ORDERED: STAT IV Infusion **Titration per Protocol STA (10:47)
--- NOTE | 2021-08-24 10:47 | Emergency Department Note ---
History of Present Illness General Chief complaint: Confusion Stated complaint: Illness Time Seen by Provider: 08/24/21 09:22 History of Present Illness 71-year-old female presents to the ED with a chief complaint of generalized weakness. The patient, according to the was very weak this morning. He was having difficulty getting to the bathroom. The patient's says that she fell and hit her head on Friday. She was feeling weak then. She has gotten worse. She recently started a new beta-giuliano. No additional information was available at this time. The patient is unable to provide any information due to her acuity. Home Medications Medication Instructions Recorded Confirmed Type magnesium oxide 400 mg (241.3 mg 400 mg PO BID tab 05/26/18 08/24/21 History magnesium) tablet docusate sodium 100 mg capsule 100 mg PO BID PRN 02/26/19 08/24/21 History zoledronic acid 5 mg/100 mL in 5 mg/kg IV YEARLY ml 03/02/19 08/24/21 History mannitol 5 %-water intravenous piggybck nitroglycerin 0.4 mg sublingual 0.4 mg SUBLINGUAL Q5M PRN #25 tab 02/22/21 08/24/21 Rx tablet (Nitrostat) nortriptyline 10 mg capsule 10 mg PO QAM #90 cap 02/27/21 08/24/21 Rx levothyroxine 75 mcg tablet 75 mcg PO QAM #90 tab 03/15/21 08/24/21 Rx Singulair 10 mg tablet 10 mg PO QPM #90 tab NS 04/17/21 08/24/21 Rx (montelukast) atorvastatin 40 mg tablet 40 mg PO DAILY #90 tab 05/25/21 08/24/21 Rx aspirin 81 mg tablet,delayed 81 mg PO DAILY 05/30/21 08/24/21 History release nortriptyline 25 mg capsule 25 mg PO HS #90 cap 06/08/21 08/24/21 Rx lansoprazole 15 mg capsule,delayed 15 mg PO QAM #90 cap 06/19/21 08/24/21 Rx release escitalopram oxalate 20 mg tablet 20 mg PO QAM #90 tab 07/23/21 08/24/21 Rx (Lexapro) calcium carbonate 600 mg-vitamin 1 tab PO BID 08/24/21 08/24/21 History D3 5 mcg (200 unit) tablet celecoxib 200 mg capsule 200 mg PO BID 08/24/21 08/24/21 History folic acid 1 mg tablet 1 mg PO DAILY 08/24/21 08/24/21 History methotrexate sodium 2.5 mg tablet 20 mg PO WK 08/24/21 08/24/21 History metoprolol succinate 100 mg 150 mg PO QAM 08/24/21 08/24/21 History tablet,extended release 24 hr ondansetron 4 mg disintegrating 4 mg TRANSLINGUAL Q12 PRN 08/24/21 08/24/21 History tablet valacyclovir 1 gram tablet 2,000 mg PO DAILY PRN 08/24/21 08/24/21 History Allergies Allergy/AdvReac Type Severity Reaction Status Date / Time bacitracin Allergy Intermediate Hives, Verified 08/24/21 12:09 blisters clavulanic acid Allergy Intermediate Hives Verified 08/24/21 12:09 diphenhydramine Allergy Intermediate Hives Verified 08/24/21 12:09 iodine Allergy Intermediate Hives Verified 08/24/21 12:09 ketorolac Allergy Intermediate Hives Verified 08/24/21 12:09 meclofenamic acid Allergy Intermediate Hives Verified 08/24/21 12:09 neomycin Allergy Intermediate Hives, Verified 08/24/21 12:09 blisters NSAIDS (Non-Steroidal Allergy Intermediate Hives Verified 08/24/21 12:09 Anti-Inflamma (tolerates Celebrex) oxycodone Allergy Intermediate Hives Verified 08/24/21 12:09 (tolerates Vicodin) polymyxin B Allergy Intermediate Hives, Verified 08/24/21 12:09 blisters quinine Allergy Intermediate Hives Verified 08/24/21 12:09 Sulfa (Sulfonamide Allergy Intermediate Hives Verified 08/24/21 12:09 Antibiotics) tramadol Allergy Intermediate Hives, Verified 08/24/21 12:09 itching adhesive Allergy Mild Rash Verified 08/24/21 12:09 latex Allergy Mild Rash Verified 08/24/21 12:09 povidone-iodine Allergy Mild Rash Verified 08/24/21 12:09 doxycycline Allergy Anaphylaxis Unverified 08/24/21 12:09 meperidine AdvReac Intermediate N/V Verified 08/24/21 12:09 prednisone AdvReac Intermediate Made Verified 08/24/21 12:09 "bones soft" aspirin AdvReac Mild N/V Verified 08/24/21 12:09 Past Med/Surg History Medical History Allergic rhinitis Anemia Chronic, hgb baseline 10-11 range per chart review Anxiety Asthma stable Chronic back pain Coronary artery disease cardiac catheterization -02/22/2021:Impression: 1. Severe CAD involving ostial/proximal LAD (100%), filling via left to left and right to left collaterals. 2. Otherwise nonobstructive CAD involving the mid circumflex. 3. No aortic stenosis. 4. Normal left-sided filling pressure. Depression GERD (gastroesophageal reflux disease) controlled History of right breast cancer s/p lumpectomy (1969)- no chemo or xrt Hx of fracture Right shoulder AC joint fracture (10/2020) due to traumatic event > healing without surgical intervention Hyperlipidemia Hypertension Hypothyroidism IBS (irritable bowel syndrome) Insomnia Ischemic cardiomyopathy Lumbar facet joint syndrome Lumbar spinal stenosis Osteoarthritis Rheumatoid arthritis On Methotrexate Sacroiliitis Steroid-induced osteoporosis Surgical History H/O arthroscopy of shoulder L shoulder H/O cataract extraction R/L eye History of arthroscopy of left knee History of breast biopsy History of foot surgery R/L History of lumpectomy of right breast History of right knee joint replacement History of tonsillectomy History of total abdominal hysterectomy and bilateral salpingo-oophorectomy d/t endometriosis S/P ORIF (open reduction internal fixation) fracture Left ankle S/p reverse total shoulder arthroplasty Left reverse TSA (02/26/19): Grade view 2, MAC#3, ETT 7 + PNB at [facility] (scope patch used) Family History Grandmother (Paternal) Family history of diabetes mellitus Grandmother (Maternal) Family history of diabetes mellitus Father Coronary heart disease Alzheimer disease Myocardial infarction Osteoarthritis COPD (chronic obstructive pulmonary disease) Lung disease Mother Myocardial infarction COPD (chronic obstructive pulmonary disease) Other No family history of adverse response to anesthesia Denies family history of Ovarian cancer Prostate cancer Breast cancer Colorectal cancer Social History Smoking Status: Never smoker Second Hand Exposure: No; Hx Alcohol Use: No Hx Substance Use: No Preferred Language: Slovenian Communication Ability: Effective Visual Impairment: Limited Hearing Ability: Normal Telesales Team Leader Required: No Beliefs That Will Affect Care: None marital status: Current Living Situation: Spouse Current Living Situation Comment: granddaughter lives with pt too current occupational status: retired How many Children do You have: 2 Feels Safe at Home: Yes Childhood Exposure to Second-Hand Smoke: Yes caffeine: Yes (coffee) during the past year weight has: remained stable Dental Care, Regularly: No Physical Activity Frequency: Daily Physical Activity Frequency Comment: chores Seatbelt Use: always Sunscreen Use: No Assistive Devices: None Review of Systems Unobtainable due to cognitive status Physical Exam Vital Signs Vital Signs - 24 hr 08/24/21 08:56 08/24/21 09:11 08/24/21 09:21 Temperature 36.4 C L Temperature Source Oral Pulse Rate 64 Pulse Rate [Apical] Pulse Rate from SpO2 Sensor Respiratory Rate 19 Respiratory Effort / Characteristics Non-Labored Spontaneous Respiratory Depth Normal Blood Pressure 58/40 L Blood Pressure [Right Arm] 60/38 L Blood Pressure Mean 46 Blood Pressure Mean [Right Arm] 45 Blood Pressure Position Lying Pulse Oximetry 98 94 Oxygen Delivery Method Room Air Room Air Sepsis Recent Fever Within 48 Hours No Sepsis New/Unexplained Change in Mental Status Yes Sepsis Action Taken by Nursing Physician Notified 08/24/21 10:08 08/24/21 10:13 08/24/21 10:34 Temperature 35.8 C L Temperature Source Rectal Pulse Rate Pulse Rate [Apical] 61 Pulse Rate from SpO2 Sensor Respiratory Rate 24 Respiratory Effort / Characteristics Respiratory Depth Blood Pressure Blood Pressure [Right Arm] 55/35 L 58/38 L Blood Pressure Mean Blood Pressure Mean [Right Arm] 41 44 Blood Pressure Position Pulse Oximetry 99 Oxygen Delivery Method Room Air Sepsis Recent Fever Within 48 Hours Sepsis New/Unexplained Change in Mental Status Sepsis Action Taken by Nursing 08/24/21 10:58 08/24/21 11:00 08/24/21 11:05 Temperature Temperature Source Pulse Rate 65 Pulse Rate [Apical] 61 63 Pulse Rate from SpO2 Sensor 65 Respiratory Rate 22 22 21 Respiratory Effort / Characteristics Respiratory Depth Blood Pressure 92/59 L Blood Pressure [Right Arm] 68/44 L 78/49 L Blood Pressure Mean 70 Blood Pressure Mean [Right Arm] 52 58 Blood Pressure Position Pulse Oximetry 97 97 96 Oxygen Delivery Method Room Air Room Air Sepsis Recent Fever Within 48 Hours Sepsis New/Unexplained Change in Mental Status Sepsis Action Taken by Nursing 08/24/21 11:29 08/24/21 11:42 08/24/21 12:05 Temperature 34.5 C L 35.5 C L Temperature Source Rectal Rectal Pulse Rate 65 69 Pulse Rate [Apical] 67 Pulse Rate from SpO2 Sensor Respiratory Rate 20 21 16 Respiratory Effort / Characteristics Respiratory Depth Blood Pressure 107/65 Blood Pressure [Right Arm] 95/60 L Blood Pressure Mean 79 Blood Pressure Mean [Right Arm] 71 Blood Pressure Position Lying Pulse Oximetry 95 96 95 Oxygen Delivery Method Room Air Sepsis Recent Fever Within 48 Hours Sepsis New/Unexplained Change in Mental Status Sepsis Action Taken by Nursing 08/24/21 12:20 08/24/21 12:50 08/24/21 13:41 Temperature 35.5 C L 36.2 C L 36.4 C L Temperature Source Rectal Rectal Rectal Pulse Rate 69 69 69 Pulse Rate [Apical] Pulse Rate from SpO2 Sensor Respiratory Rate 16 19 27 H Respiratory Effort / Characteristics Respiratory Depth Blood Pressure 111/60 106/74 109/63 Blood Pressure [Right Arm] Blood Pressure Mean 77 84 78 Blood Pressure Mean [Right Arm] Blood Pressure Position Pulse Oximetry 93 94 Oxygen Delivery Method Sepsis Recent Fever Within 48 Hours Sepsis New/Unexplained Change in Mental Status Sepsis Action Taken by Nursing 08/24/21 13:59 Temperature 36.4 C L Temperature Source Rectal Pulse Rate 67 Pulse Rate [Apical] Pulse Rate from SpO2 Sensor Respiratory Rate 24 Respiratory Effort / Characteristics Respiratory Depth Blood Pressure 105/65 Blood Pressure [Right Arm] Blood Pressure Mean 78 Blood Pressure Mean [Right Arm] Blood Pressure Position Pulse Oximetry 94 Oxygen Delivery Method Sepsis Recent Fever Within 48 Hours Sepsis New/Unexplained Change in Mental Status Sepsis Action Taken by Nursing CONSTITUTIONAL/VITAL SIGNS: Reviewed / noted above. GENERAL: No acute distress. INTEGUMENTARY: Warm, dry, and pale. HEAD: Some ecchymosis noted on the left side of the face and periorbital region. This was likely related to her fall 3 days ago. EYES: without scleral icterus or trauma. ENT/OROPHARYNX: clear and dry. LYMPHADENOPATHY/NECK: Is supple without lymphadenopathy or meningismus. RESPIRATORY: Clear to auscultation bilaterally. No increased work of breathing. CARDIOVASCULAR: Regular rate and rhythm. GI/ABDOMEN: Soft and nontender. No organomegaly or pulsatile mass. EXTREMITIES: Warm and well perfused. NEUROLOGICAL: Patient response to verbal stimuli although her responses very brief and limited. She does respond appropriately to answering questions such as her name and date of . PSYCHIATRIC: normal affect. MUSCULOSKELETAL: Normally developed with average to poor muscle tone. Rectal: Stool is light brown guaiac negative. TRIAGE NURSING DOCUMENTATION REVIEWED. Procedures Central Line Placement Right IJ: Time Out Performed: Yes Patient Placed on Monitor/Pulse Ox: Yes MD Prep: mask, gown and gloves Central Line Prep: Chlorhexidine scrub and sterile drapes applied Local Anesthetic: lidocaine 1% Amount of anesthesia used (mL): 2 Ultrasound Used for Placement: Yes Central Line Lumen Inserted: triple Post Procedure: sutured in place, good blood return, all ports aspirated, flushed, capped and sterile dressing applied Post Procedure X-Ray: tip of catheter in good position and no pneumothorax seen Patient Tolerated Procedure: well and no complications Complications: none Course Administered Medications Norepinephrine Bitartrate (Levophed/D5w) 8 mg in 508 mls @ 46.482 mls/hr IV .[id number] [facility]; Protocol Stop: 09/23/21 10:59 Last Admin: 08/24/21 10:55 Dose: 0.2 mcg/kg/min, 46.5 mls/hr Documented by: [id number] Cosigned by: [id number] Discontinued Medications Dextrose (Dextrose 50% 50 Ml Syringe) 50 ml IV NOW ONE Stop: 08/24/21 09:12 Last Admin: 08/24/21 09:45 Dose: 50 ml Documented by: [id number] Sodium Chloride (Nss 1000ml) 2,000 mls @ 999 mls/hr IV .[id number] [facility] Stop: 08/24/21 11:15 Last Infusion: 08/24/21 11:30 Dose: 0 mls/hr Documented by: [id number] Admin: 08/24/21 09:42 Dose: 999 mls/hr Documented by: [id number] Cefepime HCl (Maxipime) 2,000 mg in 20 mls @ 5 mls/min IV NOW [facility]; Protocol Stop: 08/24/21 10:27 Last Admin: 08/24/21 10:30 Dose: 5 mls/min Documented by: [id number] Ioversol (Optiray 320 100ml) 95 ml IV ONCE ONE Stop: 08/24/21 11:27 Last Admin: 08/24/21 11:28 Dose: 95 ml Documented by: [id number] Miscellaneous (Stat Iv Infusion Titration Per Protocol) 1 ea N/A NOW STA Stop: 08/24/21 10:48 Last Admin: 08/24/21 10:57 Dose: Not Given Documented by: [id number] Miscellaneous (Patient's Height And/Or Weight Needed) 1 ea N/A Q2H SIDDHARTHA Stop: 09/23/21 12:59 Last Admin: 08/24/21 13:09 Dose: 1 ea Documented by: [id number] Critical Care Time Critical Care Time: Yes Total Critical Care Time: 120 I have personally spent 120 minutes of critical care time in the direct management of this patient. This includes bedside care, interpretation of diagnostic studies, and testing, discussion with consultants, patient, and family members, and other required patient management activities. This 120 minutes is in excess of all separately billable procedures. Medical Decision Making Differential Diagnosis Differential includes acute coronary syndrome, myocardial infarction, CVA, TIA, anemia, infection, pneumonia, UTI, pyelonephritis, poor nutrition, dehydration, electrolyte disturbance,hypoglycemia. Medical Records Attestation: I reviewed the patient's medical records. Home Medications Current Medication List: was personally reviewed by me Laboratory Data Attestation: I reviewed the patient's lab results. Result diagrams: 08/24/21 09:20 08/24/21 09:20 Lab Results 08/24/21 08/24/21 08/24/21 Range/Units 08:59 09:20 09:20 WBC 6.37 (4.8-10.8) K/uL RBC 2.34 L (4.2-5.4) M/uL Hgb 7.4 L (12.0-16.0) g/dL Hct 25.0 L (37-47) % MCV 106.8 H (80-100) fL MCH 31.6 (25-34) pg MCHC 29.6 L (32-36) g/dL RDW Std Deviation 90.5 H (36.4-46.3) fL RDW Coeff of Ender 24.4 H (11.5-14.5) % Plt Count 187 (130-400) K/uL MPV 11.5 H (7.4-10.4) fL Immature Gran % (Auto) 1.6 % Neut % (Auto) 83.0 % Lymph % (Auto) 8.8 % Sully % (Auto) 4.2 % Eos % (Auto) 2.2 % Baso % (Auto) 0.2 % Neut # (Auto) 5.29 (1.4-6.5) K/uL Lymph # (Auto) 0.56 L (1.2-3.4) K/uL Sully # (Auto) 0.27 (0.11-0.59) K/uL Eos # (Auto) 0.14 (0-0.5) K/uL Baso # (Auto) 0.01 (0-0.2) K/uL Immature Gran # (Auto) 0.10 H (0.00-0.02) K/uL Toxic Vacuolation 1+ Polychromasia 1+ Hypochromasia Present Anisocytosis Present Macrocytosis Present Sodium 136 (136-145) mmol/L Potassium 4.8 (3.5-5.1) mmol/L Chloride 104 (98-107) mmol/L Carbon Dioxide 20 L (21-32) mmol/L Anion Gap 12.0 H (3-11) BUN 16 (7-18) mg/dl Creatinine 1.50 H (0.6-1.2) mg/dl Est Cr Clr Drug Dosing Not Reportable Est GFR ( Amer) 40.8 ml/min Est GFR (Non-Af Amer) 35.2 ml/min BUN/Creatinine Ratio 10.6 (10-20) Glucose 57 L (70-99) mg/dl POC Glucose 49 L* (70-99) mg/dl Lactate (0.4-2.0) mmol/L Calcium 8.6 (8.5-10.1) mg/dl Magnesium 2.0 (1.8-2.4) mg/dl Total Bilirubin 0.7 (0.2-1) mg/dl AST 40 H (15-37) U/L ALT 15 (12-78) Alkaline Phosphatase 240 H D (45-117) U/L Total Creatine Kinase 57 (26-192) U/L Total Protein 5.6 L (6.4-8.2) gm/dl Albumin 1.2 L (3.4-5.0) gm/dl Globulin 4.4 H (2.5-4.0) gm/dl Albumin/Globulin Ratio 0.3 L (0.9-2) TSH 0.446 (0.300-4.500) uIu/ml Random Cortisol mcg/dl Urine Color Urine Appearance (Clear) Urine pH (4.5-7.5) Ur Specific [place] (1.000-1.030) Urine Protein (Negative) Urine Glucose (UA) (Negative) Urine Ketones (Negative) Urine Blood (Negative) Urine Nitrite (Negative) Urine Bilirubin (Negative) Urine Urobilinogen (Negative) Ur Leukocyte Esterase (Negative) Urine WBC (Auto) (0-5) /hpf Urine RBC (Auto) (0-4) /hpf U Hyaline Cast (Auto) (0-5) /lpf U Epithel Cells (Auto) (0-5) /lpf Urine Bacteria (Auto) (Negative) SARS-CoV-2, RNA, NAAT (NEGATIVE) Blood Type Antibody Screen Crossmatch 08/24/21 08/24/21 08/24/21 Range/Units 09:42 09:47 10:07 WBC (4.8-10.8) K/uL RBC (4.2-5.4) M/uL Hgb (12.0-16.0) g/dL Hct (37-47) % MCV (80-100) fL MCH (25-34) pg MCHC (32-36) g/dL RDW Std Deviation (36.4-46.3) fL RDW Coeff of Ender (11.5-14.5) % Plt Count (130-400) K/uL MPV (7.4-10.4) fL Immature Gran % (Auto) % Neut % (Auto) % Lymph % (Auto) % Sully % (Auto) % Eos % (Auto) % Baso % (Auto) % Neut # (Auto) (1.4-6.5) K/uL Lymph # (Auto) (1.2-3.4) K/uL Sully # (Auto) (0.11-0.59) K/uL Eos # (Auto) (0-0.5) K/uL Baso # (Auto) (0-0.2) K/uL Immature Gran # (Auto) (0.00-0.02) K/uL Toxic Vacuolation Polychromasia Hypochromasia Anisocytosis Macrocytosis Sodium (136-145) mmol/L Potassium (3.5-5.1) mmol/L Chloride (98-107) mmol/L Carbon Dioxide (21-32) mmol/L Anion Gap (3-11) BUN (7-18) mg/dl Creatinine (0.6-1.2) mg/dl Est Cr Clr Drug Dosing Est GFR ( Amer) ml/min Est GFR (Non-Af Amer) ml/min BUN/Creatinine Ratio (10-20) Glucose (70-99) mg/dl POC Glucose (70-99) mg/dl Lactate 7.6 H* (0.4-2.0) mmol/L Calcium (8.5-10.1) mg/dl Magnesium (1.8-2.4) mg/dl Total Bilirubin (0.2-1) mg/dl AST (15-37) U/L ALT (12-78) Alkaline Phosphatase (45-117) U/L Total Creatine Kinase (26-192) U/L Total Protein (6.4-8.2) gm/dl Albumin (3.4-5.0) gm/dl Globulin (2.5-4.0) gm/dl Albumin/Globulin Ratio (0.9-2) TSH (0.300-4.500) uIu/ml Random Cortisol mcg/dl Urine Color Urine Appearance (Clear) Urine pH (4.5-7.5) Ur Specific [place] (1.000-1.030) Urine Protein (Negative) Urine Glucose (UA) (Negative) Urine Ketones (Negative) Urine Blood (Negative) Urine Nitrite (Negative) Urine Bilirubin (Negative) Urine Urobilinogen (Negative) Ur Leukocyte Esterase (Negative) Urine WBC (Auto) (0-5) /hpf Urine RBC (Auto) (0-4) /hpf U Hyaline Cast (Auto) (0-5) /lpf U Epithel Cells (Auto) (0-5) /lpf Urine Bacteria (Auto) (Negative) SARS-CoV-2, RNA, NAAT NEGATIVE (NEGATIVE) Blood Type A Negative Antibody Screen NEGATIVE Crossmatch See Detail 08/24/21 08/24/21 08/24/21 Range/Units 10:11 10:44 11:30 WBC (4.8-10.8) K/uL RBC (4.2-5.4) M/uL Hgb (12.0-16.0) g/dL Hct (37-47) % MCV (80-100) fL MCH (25-34) pg MCHC (32-36) g/dL RDW Std Deviation (36.4-46.3) fL RDW Coeff of Ender (11.5-14.5) % Plt Count (130-400) K/uL MPV (7.4-10.4) fL Immature Gran % (Auto) % Neut % (Auto) % Lymph % (Auto) % Sully % (Auto) % Eos % (Auto) % Baso % (Auto) % Neut # (Auto) (1.4-6.5) K/uL Lymph # (Auto) (1.2-3.4) K/uL Sully # (Auto) (0.11-0.59) K/uL Eos # (Auto) (0-0.5) K/uL Baso # (Auto) (0-0.2) K/uL Immature Gran # (Auto) (0.00-0.02) K/uL Toxic Vacuolation Polychromasia Hypochromasia Anisocytosis Macrocytosis Sodium (136-145) mmol/L Potassium (3.5-5.1) mmol/L Chloride (98-107) mmol/L Carbon Dioxide (21-32) mmol/L Anion Gap (3-11) BUN (7-18) mg/dl Creatinine (0.6-1.2) mg/dl Est Cr Clr Drug Dosing Est GFR ( Amer) ml/min Est GFR (Non-Af Amer) ml/min BUN/Creatinine Ratio (10-20) Glucose (70-99) mg/dl POC Glucose 153 H 122 H (70-99) mg/dl Lactate (0.4-2.0) mmol/L Calcium (8.5-10.1) mg/dl Magnesium (1.8-2.4) mg/dl Total Bilirubin (0.2-1) mg/dl AST (15-37) U/L ALT (12-78) Alkaline Phosphatase (45-117) U/L Total Creatine Kinase (26-192) U/L Total Protein (6.4-8.2) gm/dl Albumin (3.4-5.0) gm/dl Globulin (2.5-4.0) gm/dl Albumin/Globulin Ratio (0.9-2) TSH (0.300-4.500) uIu/ml Random Cortisol mcg/dl Urine Color Dark Yellow Urine Appearance Clear (Clear) Urine pH 8.5 H (4.5-7.5) Ur Specific [place] 1.018 (1.000-1.030) Urine Protein Trace H (Negative) Urine Glucose (UA) Negative (Negative) Urine Ketones Negative (Negative) Urine Blood Negative (Negative) Urine Nitrite Negative (Negative) Urine Bilirubin Negative (Negative) Urine Urobilinogen Negative (Negative) Ur Leukocyte Esterase Negative (Negative) Urine WBC (Auto) 1-5 (0-5) /hpf Urine RBC (Auto) 0-4 (0-4) /hpf U Hyaline Cast (Auto) 5-10 H (0-5) /lpf U Epithel Cells (Auto) 20-30 H (0-5) /lpf Urine Bacteria (Auto) Negative (Negative) SARS-CoV-2, RNA, NAAT (NEGATIVE) Blood Type Antibody Screen Crossmatch 08/24/21 08/24/21 08/24/21 Range/Units 11:37 13:19 13:53 WBC (4.8-10.8) K/uL RBC (4.2-5.4) M/uL Hgb (12.0-16.0) g/dL Hct (37-47) % MCV (80-100) fL MCH (25-34) pg MCHC (32-36) g/dL RDW Std Deviation (36.4-46.3) fL RDW Coeff of Ender (11.5-14.5) % Plt Count (130-400) K/uL MPV (7.4-10.4) fL Immature Gran % (Auto) % Neut % (Auto) % Lymph % (Auto) % Sully % (Auto) % Eos % (Auto) % Baso % (Auto) % Neut # (Auto) (1.4-6.5) K/uL Lymph # (Auto) (1.2-3.4) K/uL Sully # (Auto) (0.11-0.59) K/uL Eos # (Auto) (0-0.5) K/uL Baso # (Auto) (0-0.2) K/uL Immature Gran # (Auto) (0.00-0.02) K/uL Toxic Vacuolation Polychromasia Hypochromasia Anisocytosis Macrocytosis Sodium (136-145) mmol/L Potassium (3.5-5.1) mmol/L Chloride (98-107) mmol/L Carbon Dioxide (21-32) mmol/L Anion Gap (3-11) BUN (7-18) mg/dl Creatinine (0.6-1.2) mg/dl Est Cr Clr Drug Dosing Est GFR ( Amer) ml/min Est GFR (Non-Af Amer) ml/min BUN/Creatinine Ratio (10-20) Glucose (70-99) mg/dl POC Glucose 117 H (70-99) mg/dl Lactate 7.3 H* (0.4-2.0) mmol/L Calcium (8.5-10.1) mg/dl Magnesium (1.8-2.4) mg/dl Total Bilirubin (0.2-1) mg/dl AST (15-37) U/L ALT (12-78) Alkaline Phosphatase (45-117) U/L Total Creatine Kinase (26-192) U/L Total Protein (6.4-8.2) gm/dl Albumin (3.4-5.0) gm/dl Globulin (2.5-4.0) gm/dl Albumin/Globulin Ratio (0.9-2) TSH (0.300-4.500) uIu/ml Random Cortisol 35.95 mcg/dl Urine Color Urine Appearance (Clear) Urine pH (4.5-7.5) Ur Specific [place] (1.000-1.030) Urine Protein (Negative) Urine Glucose (UA) (Negative) Urine Ketones (Negative) Urine Blood (Negative) Urine Nitrite (Negative) Urine Bilirubin (Negative) Urine Urobilinogen (Negative) Ur Leukocyte Esterase (Negative) Urine WBC (Auto) (0-5) /hpf Urine RBC (Auto) (0-4) /hpf U Hyaline Cast (Auto) (0-5) /lpf U Epithel Cells (Auto) (0-5) /lpf Urine Bacteria (Auto) (Negative) SARS-CoV-2, RNA, NAAT (NEGATIVE) Blood Type Antibody Screen Crossmatch Imaging Data Radiologist's Impression: Chest X-Ray 08/24/21 09:11 XR chest 1V portable CLINICAL HISTORY: weakness TECHNIQUE: Single frontal radiograph of the chest was obtained. Comparison: Comparison is made to chest one view 05/30/2021 FINDINGS: Right venous catheter tip is in the cavoatrial junction. Bilateral reverse shoulder arthroplasties are seen. The cardiomediastinal silhouette is stable. Lungs are underinflated but clear. No evidence of pleural effusion or pneumothorax. IMPRESSION: Satisfactory position of right venous catheter. ACT 112: Negative or not required by law. Electronically signed by: Vicente Edwards M.D. 08/24/2021 10:29 AM Abdomen/Pelvis CT 08/24/21 10:18 CT OF THE ABDOMEN AND PELVIS WITH CONTRAST CLINICAL HISTORY: low bp, anemia COMPARISON STUDY: CT of the abdomen and pelvis May 31, 2021. TECHNIQUE: Following IV administration of 95 mL of Optiray, axial images of the abdomen and pelvis were obtained from the lung bases to the proximal femurs. Images were reviewed in the axial, sagittal, and coronal planes. IV contrast was administered without complication. Automated exposure control was utilized for the study. A dose lowering technique was utilized adhering to the principles of ALARA. FINDINGS: Please note that the chest CT will be reported separately. No pneumatosis, free air or portal venous gas is present. Note is made of interval placement of a choleduodenal stent. The distal aspect of stent projects over the duodenal wall. Therefore, this stent may be partially withdrawn. The proximal aspect is within the gallbladder. There are gallstones within the gallbladder as well as gas. There has been interval development of an adjacent fluid and gas containing multiloculated hepatic fluid collection that measures 2.7 x 2.6 cm. This is contiguous with the gallbladder. Disruption of the gallbladder wall is noted on axial image 106 of 421. There is mild pericholecystic infiltration. Mild dilatation of the common bile duct measuring 9 mm in caliber similar to p rior exam. There is mild wall thickening of the common bile duct. Several hepatic cysts are noted. There is a cyst within the lower pole of the left kidney. The spleen, adrenal glands and pancreas are unremarkable. There is no peripancreatic infiltration. There is no evidence for a bowel obstruction. Mild wall thickening of the ascending colon is noted. This may be due to underdistention. The appendix is normal. There is no lymphadenopathy. Lord balloon is present within the bladder which is collapsed. Multiple old lower thoracic and lumbar spine compression fractures are unchanged. IMPRESSION: 1. Interval placement of a choleduodenal stent. Distal aspect of stent projects over the duodenal wall and may be partially withdrawn. Proximal aspect of stent within the gallbladder. 2. Cholelithiasis with pericholecystic infiltration. Disrupted gallbladder wall with adjacent 2.7 x 2.6 cm fluid and gas containing hepatic collection suggestive of an hepatic abscess. The findings suggest a perforated acute cholecystitis. 3. No change in mild dilatation of the common bile duct. Mild wall thickening of the common bile duct which could be correlated with liver function tests. 4. Mild wall thickening of the ascending colon which is likely due to underdistention although a mild colitis could appear similar. ACT 112: Negative or not required by law. Electronically signed by: Rodney Gilbert M.D. 08/24/2021 12:[address] 08/24/21 10:18 CT chest diagnostic w con CLINICAL HISTORY: low bp, anemia TECHNIQUE: Multidetector row helical CT of the chest was performed. Coronal and sagittal reformations were obtained. Automated dose lowering techniques and/or adjustment according to patient size were utilized for this exam. Comparison: None available at the time of this dictation. FINDINGS: Lungs and pleura: Prominent pleural fat is seen. There is bilateral atelectasis and trace pleural effusions. Heart and pericardium: There is cardiomegaly without evidence of pericardial effusion. Vessels: Unremarkable. Mediastinum and quinton: Unremarkable. Chest wall and lower neck: Unremarkable. Abdomen: For findings below the diaphragm, please refer to CT of the abdomen dated the same. Bones: Bilateral shoulder arthroplasties are seen. IMPRESSION: Trace bilateral pleural effusions and atelectasis. Cardiomegaly. Otherwise no acute abnormalities. ACT 112: Negative or not required by law. Electronically signed by: Vicente Edwards M.D. 08/24/2021 11:[address] 08/24/21 10:18 CT OF THE HEAD WITHOUT CONTRAST CLINICAL HISTORY: Fall. COMPARISON STUDY: No previous studies for comparison. TECHNIQUE: Helical axial images of the head were obtained without IV contrast. Automated exposure control was utilized for the study. A dose lowering technique was utilized adhering to the principles of ALARA. FINDINGS: No acute intracranial hemorrhage, midline shift or mass effect is present. Mild white matter hypodensity suggests small vessel disease. The ventricular system is unremarkable. The basal cisterns are patent. No extra- axial collections are present. There are no findings to suggest acute dural sinus thrombosis or acute territorial infarct. No significant calvarial abnormalities are present. There is minimal mucosal thickening of the left maxillary sinus which is diminutive. Note is made of a small left temporal scalp contusion. IMPRESSION: 1. No acute intracranial findings. 2. Left temporal scalp contusion. No calvarial fracture. ACT 112: Negative or not required by law. Electronically signed by: Rodney Gilbert M.D. 08/24/2021 11:42 AM ECG Data Attestation: I personally reviewed and interpreted this ECG as follows: Additional Comments: Twelve-lead EKG: Per my interpretation shows a normal sinus rhythm at a rate of 64. No ST elevation. No PVCs. Normal QTC. MDM Narrative 71-year-old female presents to the ED hypotensive with hypoglycemia. She was found to be anemic with a hemoglobin of 7.4 and guaiac negative stools. Her glucose was 57. She was given an amp of D50 for this. Covid test was negative. Lactic acid is 7.6. TSH was normal. Chest x-ray did not show acute process. Twelve-lead EKG: Per my interpretation shows a normal sinus rhythm. Urine did not show infection. Because of poor peripheral access and difficulty establishing IV access, right IJ central line was placed by myself. A CT scan of the brain did not show acute process. CT scan of the chest did not show acute process. CT scan of the brain did not show acute intracranial hemorrhage. CT scan of the abdomen pelvis shows acute cholecystitis with a perforation of the gallbladder with a 2.7 x 2.6 cm abscess. I spoke to Dr. Mccain, the patient's GI specialist, about the patient. He is going to take her to the operating room today. The medicine service has been made aware and will admit the patient for further patient evaluation and care. The patient's resuscitation started with 2 L normal saline IV. This did not improve the blood pressure. She was then placed on norepinephrine drip at 0.2 mcg/kg/min. This improved the blood pressure to at least 90 systolic. The patient was given 2 units of blood during her ED stay. She was also given empiric antibiotics including cefepime initially and then Zosyn. Clinically the patient looks much better and her blood pressure seems to be stable in the low 100s systolic range. Impression & Plan Acute hypotension, Hypoglycemia, Acidosis, lactic, Septic shock, Cholecystitis with perforation of gallbladder Discharge Plan Visit Data Chief Complaint: Confusion Stated Complaint: Illness ED Provider: Ady Harden Discharge Problem: Acute hypotension, Hypoglycemia, Acidosis, lactic, Septic shock, Cholecystitis with perforation of gallbladder Patient Disposition: Admitted As Inpatient Forms Stand Alone Forms: [facility] Prescriptions Prescriptions: No Action magnesium oxide 400 mg (241.3 mg magnesium) tablet 400 mg PO BID RF: 0 nortriptyline 10 mg capsule 10 mg PO QAM Qty: 90 RF: 1 levothyroxine 75 mcg tablet 75 mcg PO QAM Qty: 90 RF: 1 montelukast [Singulair] 10 mg tablet 10 mg PO QPM Qty: 90 RF: 1 atorvastatin 40 mg tablet 40 mg PO DAILY Qty: 90 RF: 3 nortriptyline 25 mg capsule 25 mg PO HS Qty: 90 RF: 3 lansoprazole 15 mg capsule,delayed release(DR/EC) 15 mg PO QAM Qty: 90 RF: 1 escitalopram oxalate [Lexapro] 20 mg tablet 20 mg PO QAM Qty: 90 RF: 1 zoledronic civj-fuqidlun-ehwhm 5 mg/100 mL piggyback 5 mg/kg IV YEARLY RF: 0 docusate sodium 100 mg Capsule 100 mg PO BID PRN (Reason: Constipation) RF: 0 nitroglycerin [Nitrostat] 0.4 mg Tablet, Sublingual 0.4 mg sublingual Q5M PRN (Reason: chest pain) Qty: 25 RF: 3 aspirin 81 mg Tablet,Delayed Release (Dr/Ec) 81 mg PO DAILY RF: 0 celecoxib 200 mg capsule 200 mg PO BID RF: 0 valacyclovir 1 gram tablet 2,000 mg PO DAILY PRN (Reason: Cold Sores) RF: 0 calcium carbonate-vitamin D3 [Calcium + D] 600 mg-5 mcg (200 unit) Tablet 1 tab PO BID RF: 0 methotrexate sodium 2.5 mg tablet 20 mg PO WK RF: 0 folic acid 1 mg tablet 1 mg PO DAILY RF: 0 ondansetron 4 mg tablet,disintegrating 4 mg translingual Q12 PRN (Reason: Nausea) RF: 0 metoprolol succinate 100 mg tablet extended release 24 hr 150 mg PO QAM RF: 0 Referrals Referrals: Tayla Kent DO [Primary Care Provider] -
[2021-08-24 10:55] LABS: Appearance Urine Clear (Clear); Bacteria Urine Automated Negative (Negative); Bilirubin Urine Negative (Negative); Blood Urine Negative (Negative); Color Urine Dark Yellow; Epithelial Cell Urine Auto 20-30 /lpf (0-5); Glucose Urine UA Negative (Negative); Ketones Urine Negative (Negative); Leukocyte Esterase Urine Negative (Negative); Nitrite Urine Negative (Negative); RBC Urine Automated 0-4 /hpf (0-4); Specific Gravity Urine 1.018 (1.000-1.030); Urobilinogen Urine Negative (Negative); pH Urine 8.5 (4.5-7.5)
[2021-08-24 10:59] LABS: Protein Urine Trace (Negative)
[2021-08-24] MEDS ORDERED: NOREPINEPHRINE/D5W 8 MG/508 ML BAG IV SCH (11:00)
[2021-08-24] MEDS ORDERED: OPTIRAY 320 100ml IV ONE (11:26)
--- NOTE | 2021-08-24 11:43 | CT Scan Report ---
CT OF THE HEAD WITHOUT CONTRAST CLINICAL HISTORY: Fall. COMPARISON STUDY: No previous studies for comparison. TECHNIQUE: Helical axial images of the head were obtained without IV contrast. Automated exposure con trol was utilized for the study. A dose lowering technique was utilized adhering to the principles o f ALARA. FINDINGS: No acute intracranial hemorrhage, midline shift or mass effect is present. Mild white matte r hypodensity suggests small vessel disease. The ventricular system is unremarkable. The basal cister ns are patent. No extra-axial collections are present. There are no findings to suggest acute dural s inus thrombosis or acute territorial infarct. No significant calvarial abnormalities are present. The re is minimal mucosal thickening of the left maxillary sinus which is diminutive. Note is made of a s mall left temporal scalp contusion. IMPRESSION: 1. No acute intracranial findings. 2. Left temporal scalp contusion. No calvarial fracture. ACT 112: Negative or not required by law. Electronically signed by: Rodney Gilbert M.D. 08/24/2021 11:42 AM
--- NOTE | 2021-08-24 11:52 | CT Scan Report ---
CT chest diagnostic w con CLINICAL HISTORY: low bp, anemia TECHNIQUE: Multidetector row helical CT of the chest was performed. Coronal and sagittal reformations were obtained. Automated dose lowering techniques and/or adjustment according to patient size were u tilized for this exam. Comparison: None available at the time of this dictation. FINDINGS: Lungs and pleura: Prominent pleural fat is seen. There is bilateral atelectasis and trace pleural eff usions. Heart and pericardium: There is cardiomegaly without evidence of pericardial effusion. Vessels: Unremarkable. Mediastinum and quinton: Unremarkable. Chest wall and lower neck: Unremarkable. Abdomen: For findings below the diaphragm, please refer to CT of the abdomen dated the same. Bones: Bilateral shoulder arthroplasties are seen. IMPRESSION: Trace bilateral pleural effusions and atelectasis. Cardiomegaly. Otherwise no acute abnormalities. ACT 112: Negative or not required by law. Electronically signed by: Vicente Edwards M.D. 08/24/2021 11:51 AM
--- NOTE | 2021-08-24 12:11 | CT Scan Report ---
CT OF THE ABDOMEN AND PELVIS WITH CONTRAST CLINICAL HISTORY: low bp, anemia COMPARISON STUDY: CT of the abdomen and pelvis May 31, 2021. TECHNIQUE: Following IV administration of 95 mL of Optiray, axial images of the abdomen and pelvis we re obtained from the lung bases to the proximal femurs. Images were reviewed in the axial, sagittal, and coronal planes. IV contrast was administered without complication. Automated exposure control wa s utilized for the study. A dose lowering technique was utilized adhering to the principles of ALARA . FINDINGS: Please note that the chest CT will be reported separately. No pneumatosis, free air or port al venous gas is present. Note is made of interval placement of a choleduodenal stent. The distal asp ect of stent projects over the duodenal wall. Therefore, this stent may be partially withdrawn. The p roximal aspect is within the gallbladder. There are gallstones within the gallbladder as well as gas. There has been interval development of an adjacent fluid and gas containing multiloculated hepatic f luid collection that measures 2.7 x 2.6 cm. This is contiguous with the gallbladder. Disruption of th e gallbladder wall is noted on axial image 106 of 421. There is mild pericholecystic infiltration. Mi ld dilatation of the common bile duct measuring 9 mm in caliber similar to prior exam. There is mild wall thickening of the common bile duct. Several hepatic cysts are noted. There is a cyst within the lower pole of the left kidney. The spleen, adrenal glands and pancreas are unremarkable. There is no peripancreatic infiltration. There is no evidence for a bowel obstruction. Mild wall thickening of th e ascending colon is noted. This may be due to underdistention. The appendix is normal. There is no l ymphadenopathy. Lord balloon is present within the bladder which is collapsed. Multiple old lower th oracic and lumbar spine compression fractures are unchanged. IMPRESSION: 1. Interval placement of a choleduodenal stent. Distal aspect of stent projects over the duodenal wal l and may be partially withdrawn. Proximal aspect of stent within the gallbladder. 2. Cholelithiasis with pericholecystic infiltration. Disrupted gallbladder wall with adjacent 2.7 x 2 .6 cm fluid and gas containing hepatic collection suggestive of an hepatic abscess. The findings sug gest a perforated acute cholecystitis. 3. No change in mild dilatation of the common bile duct. Mild wall thickening of the common bile duct which could be correlated with liver function tests. 4. Mild wall thickening of the ascending colon which is likely due to underdistention although a mild colitis could appear similar. ACT 112: Negative or not required by law. Electronically signed by: Rodney Gilbert M.D. 08/24/2021 12:10 PM
[2021-08-24] MEDS ORDERED: PIPERACILL/TAZOBAC CONSULT ACTIVE PRN ×2 (12:58→16:28)
[2021-08-24] MEDS ORDERED: PATIENT'S HEIGHT AND/OR WEIGHT NEEDED SCH (13:00)
[2021-08-24] MEDS ORDERED: PIPERACILLIN/TAZOBACTAM 3.375 GM in DEXTROSE 5% 100 ML IV ONE (13:00)
[2021-08-24] MEDS ORDERED: ALBUMIN HUMAN 5% 12.5 GM/250 ML VIAL IV ONE (13:58)
--- NOTE | 2021-08-24 14:00 | Anesthesiology Consultation ---
Date of Service August 24, 2021 Assessment & Plan (1) Encounter for pre-operative examination: Chart Review Chart Review: Acceptable Risk for Surgery and Patient NOT seen in Pre Admission Testing Consults Requested none History Surgery Operation Date: 08/24/21 08:20 Proposed Procedures p Endoscopic Retrograde Cholangiopancreatogram - Mis Ellison MD Height/Weight Height: 5 ft Weight: 61 kg Allergies Allergy/AdvReac Type Severity Reaction Status Date / Time bacitracin Allergy Intermediate Hives, Verified 08/24/21 12:09 blisters clavulanic acid Allergy Intermediate Hives Verified 08/24/21 12:09 diphenhydramine Allergy Intermediate Hives Verified 08/24/21 12:09 iodine Allergy Intermediate Hives Verified 08/24/21 12:09 ketorolac Allergy Intermediate Hives Verified 08/24/21 12:09 meclofenamic acid Allergy Intermediate Hives Verified 08/24/21 12:09 neomycin Allergy Intermediate Hives, Verified 08/24/21 12:09 blisters NSAIDS (Non-Steroidal Allergy Intermediate Hives Verified 08/24/21 12:09 Anti-Inflamma (tolerates Celebrex) oxycodone Allergy Intermediate Hives Verified 08/24/21 12:09 (tolerates Vicodin) polymyxin B Allergy Intermediate Hives, Verified 08/24/21 12:09 blisters quinine Allergy Intermediate Hives Verified 08/24/21 12:09 Sulfa (Sulfonamide Allergy Intermediate Hives Verified 08/24/21 12:09 Antibiotics) tramadol Allergy Intermediate Hives, Verified 08/24/21 12:09 itching adhesive Allergy Mild Rash Verified 08/24/21 12:09 latex Allergy Mild Rash Verified 08/24/21 12:09 povidone-iodine Allergy Mild Rash Verified 08/24/21 12:09 doxycycline Allergy Anaphylaxis Unverified 08/24/21 12:09 meperidine AdvReac Intermediate N/V Verified 08/24/21 12:09 prednisone AdvReac Intermediate Made Verified 08/24/21 12:09 "bones soft" aspirin AdvReac Mild N/V Verified 08/24/21 12:09 Medications Home Medications Medication Instructions Recorded Confirmed Last Taken magnesium oxide 400 mg (241.3 mg 400 mg PO BID tab 05/26/18 08/24/21 05/17/20 20:00 magnesium) tablet docusate sodium 100 mg capsule 100 mg PO BID PRN 02/26/19 08/24/21 05/16/20 zoledronic acid 5 mg/100 mL in 5 mg/kg IV YEARLY ml 03/02/19 08/24/21 12/20/20 mannitol 5 %-water intravenous piggybck nitroglycerin 0.4 mg sublingual 0.4 mg SUBLINGUAL Q5M PRN #25 tab 02/22/21 08/24/21 Unknown tablet (Nitrostat) nortriptyline 10 mg capsule 10 mg PO QAM #90 cap 02/27/21 08/24/21 Unknown levothyroxine 75 mcg tablet 75 mcg PO QAM #90 tab 03/15/21 08/24/21 Unknown Singulair 10 mg tablet 10 mg PO QPM #90 tab NS 04/17/21 08/24/21 Unknown (montelukast) atorvastatin 40 mg tablet 40 mg PO DAILY #90 tab 05/25/21 08/24/21 Unknown aspirin 81 mg tablet,delayed 81 mg PO DAILY 05/30/21 08/24/21 Unknown release nortriptyline 25 mg capsule 25 mg PO HS #90 cap 06/08/21 08/24/21 Unknown lansoprazole 15 mg capsule,delayed 15 mg PO QAM #90 cap 06/19/21 08/24/21 Unknown release escitalopram oxalate 20 mg tablet 20 mg PO QAM #90 tab 07/23/21 08/24/21 Unknown (Lexapro) calcium carbonate 600 mg-vitamin 1 tab PO BID 08/24/21 08/24/21 Unknown D3 5 mcg (200 unit) tablet celecoxib 200 mg capsule 200 mg PO BID 08/24/21 08/24/21 Unknown folic acid 1 mg tablet 1 mg PO DAILY 08/24/21 08/24/21 Unknown methotrexate sodium 2.5 mg tablet 20 mg PO WK 08/24/21 08/24/21 Unknown metoprolol succinate 100 mg 150 mg PO QAM 08/24/21 08/24/21 Unknown tablet,extended release 24 hr ondansetron 4 mg disintegrating 4 mg TRANSLINGUAL Q12 PRN 08/24/21 08/24/21 Unknown tablet valacyclovir 1 gram tablet 2,000 mg PO DAILY PRN 08/24/21 08/24/21 Unknown Active Medications Generic Name Dose Route Start Last Admin Trade Name Freq PRN Reason Stop Dose Admin Norepinephrine Bitartrate 8 mg in 508 mls @ 46.482 mls/hr 08/24/21 11:00 08/24/21 10:55 Levophed/D5w IV 09/23/21 10:59 0.2 mcg/kg/min .[id number] SIDDHARTHA 46.5 mls/hr Administration Protocol 0.2 MCG/KG/MIN Past Medical History Medical History Allergic rhinitis Anemia Chronic, hgb baseline 10-11 range per chart review Anxiety Asthma stable Chronic back pain Coronary artery disease cardiac catheterization -02/22/2021:Impression: 1. Severe CAD involving ostial/proximal LAD (100%), filling via left to left and right to left collaterals. 2. Otherwise nonobstructive CAD involving the mid circumflex. 3. No aortic stenosis. 4. Normal left-sided filling pressure. Depression GERD (gastroesophageal reflux disease) controlled History of right breast cancer s/p lumpectomy (1969)- no chemo or xrt Hx of fracture Right shoulder AC joint fracture (10/2020) due to traumatic event > healing without surgical intervention Hyperlipidemia Hypertension Hypothyroidism IBS (irritable bowel syndrome) Insomnia Ischemic cardiomyopathy Lumbar facet joint syndrome Lumbar spinal stenosis Osteoarthritis Rheumatoid arthritis On Methotrexate Sacroiliitis Steroid-induced osteoporosis Past Family History Family History Grandmother (Paternal) Family history of diabetes mellitus Grandmother (Maternal) Family history of diabetes mellitus Father Coronary heart disease Alzheimer disease Myocardial infarction Osteoarthritis COPD (chronic obstructive pulmonary disease) Lung disease Mother Myocardial infarction COPD (chronic obstructive pulmonary disease) Other No family history of adverse response to anesthesia Denies family history of Ovarian cancer Prostate cancer Breast cancer Colorectal cancer Past Surgical History Surgical History H/O arthroscopy of shoulder L shoulder H/O cataract extraction R/L eye History of arthroscopy of left knee History of breast biopsy History of foot surgery R/L History of lumpectomy of right breast History of right knee joint replacement History of tonsillectomy History of total abdominal hysterectomy and bilateral salpingo-oophorectomy d/t endometriosis S/P ORIF (open reduction internal fixation) fracture Left ankle S/p reverse total shoulder arthroplasty Left reverse TSA (02/26/19): Grade view 2, MAC#3, ETT 7 + PNB at [facility] (scope patch used) Social History Smoking Status: Never smoker Hx Alcohol Use: No Hx Substance Use: No substance use type: does not use Physical Exam Vital Signs Last Vital Signs Temp 97.5 F L 08/24/21 13:41 Pulse 69 08/24/21 13:41 Resp 27 H 08/24/21 13:41 BP 109/63 08/24/21 13:41 Pulse Ox 94 08/24/21 13:41 Testing Laboratory Results 08/24/21 09:20 08/24/21 09:20 Urine Color Dark Yellow 08/24/21 10:44 Urine Appearance Clear (Clear) 08/24/21 10:44 Urine pH 8.5 (4.5-7.5) H 08/24/21 10:44 Ur Specific [place] 1.018 (1.000-1.030) 08/24/21 10:44 Urine Protein Trace (Negative) H 08/24/21 10:44 Urine Glucose (UA) Negative (Negative) 08/24/21 10:44 Urine Ketones Negative (Negative) 08/24/21 10:44 Urine Nitrite Negative (Negative) 08/24/21 10:44 Ur Leukocyte Esterase Negative (Negative) 08/24/21 10:44 Urine WBC (Auto) 1-5 /hpf (0-5) 08/24/21 10:44 Urine RBC (Auto) 0-4 /hpf (0-4) 08/24/21 10:44 U Hyaline Cast (Auto) 5-10 /lpf (0-5) H 08/24/21 10:44 U Epithel Cells (Auto) 20-30 /lpf (0-5) H 08/24/21 10:44 Urine Bacteria (Auto) Negative (Negative) 08/24/21 10:44 Blood Type A Negative 08/24/21 10:07 Antibody Screen NEGATIVE 08/24/21 10:07 08/24/21 08/24/21 08/24/21 13:53 11:30 10:11 POC Glucose 117 H 122 H 153 H 08/24/21 08:59 POC Glucose 49 L* Electrocardiogram Date: 08/24/21 Findings: + NSR @ and + T wave inversion Possible Anterior infarct , age undetermined Chest X-Ray Date: 08/24/21 Findings: + NAD Cardiac Catheterization Date: 02/22/21 Coronary angiography: 1. Left main coronary artery: LMCA without significant CAD. 2. Left anterior descending: Ostial/proximal LAD 100%. LAD fills via left to left and right to left collaterals. 3. Circumflex: Large caliber vessel. Mid circumflex 40 to 50%. JESUS-3 flow. Very small caliber OM1, OM 2, and OM 3 vessels. Large OM 4. 4. Right coronary artery: RCA is large and dominant. No significant CAD within the RCA, large PDA, large PL branch. Right to left collaterals. Cervical Spine Date: 12/29/20 1. No evidence for cervical spine instability during flexion or extension. 2. Severe multilevel degenerative changes within the cervical spine.
[2021-08-24] MEDS ORDERED: LIDOCAINE 2% 2 ML VIAL/AMP(20MG/ML) INFIL ONE (14:13)
[2021-08-24] MEDS ORDERED: fentaNYL citrate 100 MCG/2 ML VIAL ONE (14:13)
[2021-08-24] MEDS ORDERED: PROPOFOL IV EMULSION 10 MG/ML 20 ML VIAL IV ONE (14:13)
[2021-08-24] MEDS ORDERED: ONDANSETRON INJ 2 MG/ML 2 ML VIAL ONE (14:13)
--- NOTE | 2021-08-24 14:19 | History & Physical Report ---
Date of Service August 24, 2021 Assessment & Plan (1) Cholecystitis with perforation of gallbladder: Plan: 71yo female with multiple medical comorbidities presenting with weakness, fatigue and hypotension. Found to have perforation of gallbladder as well as hepatic abscess. Patient went to the OR for ERCP for lithotripsy, stent manipulation. She sustained a brief cardiac arrest after administration of contrast dye with ROSC achieved after 1 round of epi. Presently intubated, sedated in MICU Plans for transfer to tertiary care facility for embolization of liver abscess. -GI and MICU teams appreciated -Maintain in MICU -Follow cultures sent from ER -Vancomycin, Zosyn, Diflucan for broad antibiotic coverage -Hold methotrexate Patient presently intubated and sedated, (2) Acute hypotension: Plan: Most likely secondary to underlying infection, septic shock, blood loss. Patient presently on Levophed as well as epi. Blood pressure appropriate. -Continue pressors, goal MAP 65 -transfusion support as below (3) Hypoglycemia: Plan: Most likely secondary to underlying infection, sepsis. Improved with D50 administration -Monitor blood sugar (4) Iron deficiency anemia: Plan: ANNITA with acute blood loss anemia as well -Patient has received 4u PRBCs thus far -Continue to monitior -Transfuse for ongoing blood loss, symptomatic anemia or Hgb<7 (5) Acute blood loss anemia: Plan: As above. -Continue transfusion support -Montior CBC -Plans to transfer to tertiary care facility for IR embolization of hepatic lesion (6) Ischemic cardiomyopathy: Plan: Patient does not appear to be in acute exacerbation -Holding Metoprolol for now in setting of hypotension (7) Coronary artery disease: Plan: Patient with underlying CAD. She had a dobutamine stress echo performed 02/08/21 which showed normal RV size and function. Mild concentric LVH. Mildly reduced EF of 40-45% with severe hypokinesis/akinesis of the basal and mid anteroseptum and mid and distal septum. Severe hypokinesis noted at peak stress. She follows with Cardiology. Cardiac cath performed 02/22/21 which revealed LAD ostial/proximal with 100% occlusion. LAD fills with left to left and right to left collaterals. Mid circumflex with 40-50% stenosis. Large, dominant RCA with no occlusion. No acute EKG changes on arrival. -Hold ASA for now -Hold Atorvastatin -Hold Metoprolol (8) Rheumatoid arthritis: Plan: Chronic -Holding MTX in setting of presumed infection/sepsis (9) Hyperlipidemia: Plan: Chronic -Holding Atorvastatin (10) Hypothyroidism: Plan: Chronic. TSH is normal at 0.446 -Continue Synthroid (11) GERD (gastroesophageal reflux disease): Plan: Chronic -Protonix bolus and gtt History of Present Illness Chief Complaint: weakness, fatigue Primary Care Provider: Tayla Kent DO Tammy Browne is a 71yo female with multiple medical comorbidities, specifically HGN, HLP, RA on MTX and CAD. She was hospitalized at [facility] from 05/30/21 - 06/03/21 with hypotension and weakness. During that hospital stay she was found to have Covid-19 infection, also found to have severe iron deficiency with anemia as well as choledocholithiasis with presumed acute cholecystitis. Patient's Covid-19 was relatively mild. She required a small amount of supplemental O2. She was not treated with steroids. She was discharged home with supplemental O2. In regards to her anemia, she was transfused with 2 u PRBCs and was administered Venofer and folic acid. She had an EGD performed on 05/31/21 which was negative for acute UGIB. Her H/H responded appropriately. She had an ERCP performed on 05/31/[address] Ellison which revealed choledocholithiasis with a significant amount of pus. Many stones were removed and pus was swept from the duct. Patient had biliary sphincterotomy with successful placement of a 7cm plastic biliary stent into the CBD. Patient was referred to General Surgery for possible cholecystectomy. Patient was improving after her ERCP so cholecystectomy was deferred. Patient was discharged home on Ciprofloxacin and Flagyl. Per - patient was evaluated outpatient and reported that she was not a candidate for cholecystectomy due to her underlying comorbidities. She is to followup with Dr. Ellison in October for placement of a new biliary stent. Patient was discharged home in stable condition on 06/03/21. Patient returns to [facility] today with complaint of weakness and fatigue with diffi culty ambulating. She fell 3 days ago and struck her left face and shoulder. She states she did not lose consciousness. She has been having chills but denies fever, chest pain, cough, SOB. She denies abdominal pain, nausea, vomiting, diarrhea or constipation. Upon arrival to the ER patient hypothermic at 34.5 rectally and hypotensive at 58/40. She was administered 2L NSS IV bolus with minimal response in blood pressure. She had a right IJ CVC placed by the ER and was started on norepinephrine for blood pressure support at 0.2mcg/kg/min. She was transfused 2u warmed PRBCs and had a warming blanket placed. Initial laboratory workup revealed macrocytic anemia with Hgb=7.4 and Hct=25 (down from 10.3 and 33, respectively, on 06/22/21) Elevated lactate of 7.6 RHIANNON with Cr=1.5 CT of the Abdomen revealed cholelithiasis with pericholecystic infiltration as well as a disrupted gallbladder wall with a 2.7 x 2.6cm fluid and gas containing hepatic collection suggestive of a hepatic abscess. Findings suggested of a perforated acute cholecystitis. Mild dilatation fo the CBD again noted with mild wall thickening of the CBD. Case was discussed with Dr. Ellison and decision was made to take the patient to the OR for EGD to clear the lumen of the gallbladder, lithotripsy and stent placement. In the OR patient received premedication for contrast allergy. She briefly lost her pulse after administration of contrast. A Code Blue was called and CPR was initiated. Patient was administered epi x 1 with ROSC. She was then transferred to the MICU for ongoing management. Plan to transfer to [facility] for IR guided drainage and possible embolization of bleeding liver parenchymal abscess. ER Course: CVC placement Cefepime D50 x 1 amp 2u PRBCs Levophed NSS x 2L Heme negative stools Allergies Allergy/AdvReac Type Severity Reaction Status Date / Time bacitracin Allergy Intermediate Hives, Verified 08/24/21 12:09 blisters clavulanic acid Allergy Intermediate Hives Verified 08/24/21 12:09 diphenhydramine Allergy Intermediate Hives Verified 08/24/21 12:09 iodine Allergy Intermediate Hives Verified 08/24/21 12:09 ketorolac Allergy Intermediate Hives Verified 08/24/21 12:09 meclofenamic acid Allergy Intermediate Hives Verified 08/24/21 12:09 neomycin Allergy Intermediate Hives, Verified 08/24/21 12:09 blisters NSAIDS (Non-Steroidal Allergy Intermediate Hives Verified 08/24/21 12:09 Anti-Inflamma (tolerates Celebrex) oxycodone Allergy Intermediate Hives Verified 08/24/21 12:09 (tolerates Vicodin) polymyxin B Allergy Intermediate Hives, Verified 08/24/21 12:09 blisters quinine Allergy Intermediate Hives Verified 08/24/21 12:09 Sulfa (Sulfonamide Allergy Intermediate Hives Verified 08/24/21 12:09 Antibiotics) tramadol Allergy Intermediate Hives, Verified 08/24/21 12:09 itching adhesive Allergy Mild Rash Verified 08/24/21 12:09 latex Allergy Mild Rash Verified 08/24/21 12:09 povidone-iodine Allergy Mild Rash Verified 08/24/21 12:09 doxycycline Allergy Anaphylaxis Unverified 08/24/21 12:09 meperidine AdvReac Intermediate N/V Verified 08/24/21 12:09 prednisone AdvReac Intermediate Made Verified 08/24/21 12:09 "bones soft" aspirin AdvReac Mild N/V Verified 08/24/21 12:09 Home Medications Medication Instructions Recorded Confirmed Type magnesium oxide 400 mg (241.3 mg 400 mg PO BID tab 05/26/18 08/24/21 History magnesium) tablet docusate sodium 100 mg capsule 100 mg PO BID PRN 02/26/19 08/24/21 History zoledronic acid 5 mg/100 mL in 5 mg/kg IV YEARLY ml 03/02/19 08/24/21 History mannitol 5 %-water intravenous piggybck nitroglycerin 0.4 mg sublingual 0.4 mg SUBLINGUAL Q5M PRN #25 tab 02/22/21 08/24/21 Rx tablet (Nitrostat) nortriptyline 10 mg capsule 10 mg PO QAM #90 cap 02/27/21 08/24/21 Rx levothyroxine 75 mcg tablet 75 mcg PO QAM #90 tab 03/15/21 08/24/21 Rx Singulair 10 mg tablet 10 mg PO QPM #90 tab NS 04/17/21 08/24/21 Rx (montelukast) atorvastatin 40 mg tablet 40 mg PO DAILY #90 tab 05/25/21 08/24/21 Rx aspirin 81 mg tablet,delayed 81 mg PO DAILY 05/30/21 08/24/21 History release nortriptyline 25 mg capsule 25 mg PO HS #90 cap 06/08/21 08/24/21 Rx lansoprazole 15 mg capsule,delayed 15 mg PO QAM #90 cap 06/19/21 08/24/21 Rx release escitalopram oxalate 20 mg tablet 20 mg PO QAM #90 tab 07/23/21 08/24/21 Rx (Lexapro) calcium carbonate 600 mg-vitamin 1 tab PO BID 08/24/21 08/24/21 History D3 5 mcg (200 unit) tablet celecoxib 200 mg capsule 200 mg PO BID 08/24/21 08/24/21 History folic acid 1 mg tablet 1 mg PO DAILY 08/24/21 08/24/21 History methotrexate sodium 2.5 mg tablet 20 mg PO WK 08/24/21 08/24/21 History metoprolol succinate 100 mg 150 mg PO QAM 08/24/21 08/24/21 History tablet,extended release 24 hr ondansetron 4 mg disintegrating 4 mg TRANSLINGUAL Q12 PRN 08/24/21 08/24/21 History tablet valacyclovir 1 gram tablet 2,000 mg PO DAILY PRN 08/24/21 08/24/21 History Past Med/Surg History Medical History Allergic rhinitis Anemia Chronic, hgb baseline 10-11 range per chart review Anxiety Asthma stable Chronic back pain Coronary artery disease cardiac catheterization -02/22/2021:Impression: 1. Severe CAD involving ostial/proximal LAD (100%), filling via left to left and right to left collaterals. 2. Otherwise nonobstructive CAD involving the mid circumflex. 3. No aortic stenosis. 4. Normal left-sided filling pressure. Depression GERD (gastroesophageal reflux disease) controlled History of right breast cancer s/p lumpectomy (1969)- no chemo or xrt Hx of fracture Right shoulder AC joint fracture (10/2020) due to traumatic event > healing without surgical intervention Hyperlipidemia Hypertension Hypothyroidism IBS (irritable bowel syndrome) Insomnia Ischemic cardiomyopathy Lumbar facet joint syndrome Lumbar spinal stenosis Osteoarthritis Rheumatoid arthritis On Methotrexate Sacroiliitis Steroid-induced osteoporosis Surgical History H/O arthroscopy of shoulder L shoulder H/O cataract extraction R/L eye History of arthroscopy of left knee History of breast biopsy History of foot surgery R/L History of lumpectomy of right breast History of right knee joint replacement History of tonsillectomy History of total abdominal hysterectomy and bilateral salpingo-oophorectomy d/t endometriosis S/P ORIF (open reduction internal fixation) fracture Left ankle S/p reverse total shoulder arthroplasty Left reverse TSA (02/26/19): Grade view 2, MAC#3, ETT 7 + PNB at [facility] (scope patch used) Family History Grandmother (Paternal) Family history of diabetes mellitus Grandmother (Maternal) Family history of diabetes mellitus Father Coronary heart disease Alzheimer disease Myocardial infarction Osteoarthritis COPD (chronic obstructive pulmonary disease) Lung disease Mother Myocardial infarction COPD (chronic obstructive pulmonary disease) Other No family history of adverse response to anesthesia Denies family history of Ovarian cancer Prostate cancer Breast cancer Colorectal cancer Social History Smoking Status: Never smoker Second Hand Exposure: No; Hx Alcohol Use: No Hx Substance Use: No Preferred Language: Georgian Communication Ability: Effective Visual Impairment: Limited Hearing Ability: Normal Student Services Counselor Required: No Beliefs That Will Affect Care: None marital status: Current Living Situation: Spouse Current Living Situation Comment: granddaughter lives with pt too current occupational status: retired How many Children do You have: 2 Feels Safe at Home: Yes Childhood Exposure to Second-Hand Smoke: Yes caffeine: Yes (coffee) during the past year weight has: remained stable Dental Care, Regularly: No Physical Activity Frequency: Daily Physical Activity Frequency Comment: chores Seatbelt Use: always Sunscreen Use: No Assistive Devices: None Review of Systems Review of Systems: All systems reviewed & are unremarkable except as noted in HPI & below + chills +pain in left shoulder from fall + pain in left cheek from fall Physical Exam Physical Exam: Patient evaluated prior to transfer to OR General: patient ill in appearance, NAD, answering questions appropriately and following commands Skin: warm, dry, intact, bruising over left eye and left shoulder, no rashes HEENT: Bruising present over left eye, PERRL, EOMI, anicteric sclera, conjunctiva without injection, external ear normal to inspection and nontender, nares patent, dry mucus membranes, dentition intact, no oropharyngeal lesions, neck supple, trachea midline, no LAD, no thyromegaly, no JVD Heart: +S1/S2, regular, no m/r/g Lungs: equal air entry bilaterally, no rales/rhonchi/wheezes Abd: +BS, soft, NT/ND, no masses/organomegaly/ascites, no RUQ pain, negative Flores's Ext: warm, 2+ pulses in UE/LE bilaterally, no clubbing/cyanosis or edema Neuro: nonfocal, patient AA&O x 4, speech intact, no facial droop, moving all extremities on command with equal strength 5/5 Results & Data Results & Data ([facility]) Vital Signs (Past 12 Hours) Vital Signs Temp Pulse Pulse Resp BP BP Pulse Ox 08/24/21 14:14 36.4 C L 66 24 110/55 L 95 08/24/21 13:59 36.4 C L 67 24 105/65 94 08/24/21 13:41 36.4 C L 69 27 H 109/63 94 08/24/21 12:50 36.2 C L 69 19 106/74 08/24/21 12:20 35.5 C L 69 16 111/60 93 08/24/21 12:05 35.5 C L 69 16 107/65 95 08/24/21 11:42 34.5 C L 65 21 96 08/24/21 11:29 67 20 95/60 L 95 08/24/21 11:05 65 21 92/59 L 96 08/24/21 11:00 63 22 78/49 L 97 08/24/21 10:58 61 22 68/44 L 97 08/24/21 10:34 61 24 58/38 L 99 08/24/21 10:13 35.8 C L 08/24/21 10:08 55/35 L 08/24/21 09:21 60/38 L 08/24/21 09:11 94 08/24/21 08:56 36.4 C L 64 19 58/40 L 98 Laboratory Results Laboratory Results WBC 3.17 K/uL (4.8-10.8) L 08/24/21 16:55 RBC 4.03 M/uL (4.2-5.4) L 08/24/21 16:55 Hgb 12.0 g/dL (12.0-16.0) D 08/24/21 16:55 Hct 37.2 % (37-47) 08/24/21 16:55 MCV 92.3 fL (80-100) D 08/24/21 16:55 MCH 29.8 pg (25-34) 08/24/21 16:55 MCHC 32.3 g/dL (32-36) 08/24/21 16:55 RDW Std Deviation 56.1 fL (36.4-46.3) H 08/24/21 16:55 RDW Coeff of Ender 18.9 % (11.5-14.5) H 08/24/21 16:55 Plt Count 122 K/uL (130-400) L 08/24/21 16:55 MPV 11.6 fL (7.4-10.4) H 08/24/21 16:55 Immature Gran % (Auto) 1.6 % 08/24/21 09:20 Neut % (Auto) 83.0 % 08/24/21 09:20 Lymph % (Auto) 8.8 % 08/24/21 09:20 [place] % (Auto) 4.2 % 08/24/21 09:20 Eos % (Auto) 2.2 % 08/24/21 09:20 Baso % (Auto) 0.2 % 08/24/21 09:20 Neut # (Auto) 5.29 K/uL (1.4-6.5) 08/24/21 09:20 Lymph # (Auto) 0.56 K/uL (1.2-3.4) L 08/24/21 09:20 [place] # (Auto) 0.27 K/uL (0.11-0.59) 08/24/21 09:20 Eos # (Auto) 0.14 K/uL (0-0.5) 08/24/21 09:20 Baso # (Auto) 0.01 K/uL (0-0.2) 08/24/21 09:20 Immature Gran # (Auto) 0.10 K/uL (0.00-0.02) H 08/24/21 09:20 Absolute Nucleated RBC 0.04 K/uL (0-0) H 08/24/21 16:55 Nucleated RBC % (auto) 1.1 % 08/24/21 16:55 Toxic Vacuolation 1+ 08/24/21 09:20 Polychromasia 1+ 08/24/21 09:20 Hypochromasia Present 08/24/21 09:20 Anisocytosis Present 08/24/21 09:20 Macrocytosis Present 08/24/21 09:20 PT 13.8 Seconds (9.0-12.0) H 08/24/21 16:55 INR 1.4 (0.9-1.1) H 08/24/21 16:55 APTT 39.8 Seconds (21.0-31.0) H 08/24/21 16:55 PTT Ratio 1.5 08/24/21 16:55 Sample Site Art Line 08/24/21 16:56 POC pH 7.28 (7.35-7.45) L 08/24/21 16:56 POC pCO2 30 mmHg (35-46) L 08/24/21 16:56 POC pO2 85 mmHg (80-95) 08/24/21 16:56 POC HCO3 14 koko/L (19-24) L 08/24/21 16:56 POC Total CO2 15 mmol/L (24-31) L 08/24/21 16:56 POC Base Excess -13.0 koko/L (-9-1.8) L 08/24/21 16:56 POC ABG O2 Sat 95.0 % (90-95) 08/24/21 16:56 Negrito Test NA 08/24/21 16:56 O2 Delivery Device Ventilator 08/24/21 16:56 POC O2 Rate 18 08/24/21 16:56 Minute Ventilation 6.4 08/24/21 16:56 POC FiO2 50 % 08/24/21 16:56 Tidal Volume 360 08/24/21 16:56 PEEP 5 08/24/21 16:56 Sodium 135 mmol/L (136-145) L 08/24/21 16:55 Potassium 4.5 mmol/L (3.5-5.1) 08/24/21 16:55 Chloride 106 mmol/L (98-107) 08/24/21 16:55 Carbon Dioxide 17 mmol/L (21-32) L 08/24/21 16:55 Anion Gap 12.0 (3-11) H 08/24/21 16:55 BUN 17 mg/dl (7-18) 08/24/21 16:55 Creatinine 1.23 mg/dl (0.6-1.2) H 08/24/21 16:55 Est Cr Clr Drug Dosing 35.2 ml/min 08/24/21 16:55 Est GFR ( Amer) 51.8 ml/min 08/24/21 16:55 Est GFR (Non-Af Amer) 44.7 ml/min 08/24/21 16:55 BUN/Creatinine Ratio 13.5 (10-20) 08/24/21 16:55 Glucose 159 mg/dl (70-99) H 08/24/21 16:55 POC Glucose 117 mg/dl (70-99) H 08/24/21 13:53 Lactate 7.3 mmol/L (0.4-2.0) H* 08/24/21 11:37 Calcium 7.5 mg/dl (8.5-10.1) L 08/24/21 16:55 Magnesium 2.0 mg/dl (1.8-2.4) 08/24/21 09:20 Total Bilirubin 1.6 mg/dl (0.2-1) H D 08/24/21 16:55 AST 51 U/L (15-37) H 08/24/21 16:55 ALT 28 (12-78) 08/24/21 16:55 Alkaline Phosphatase 207 U/L (45-117) H 08/24/21 16:55 Total Creatine Kinase 57 U/L (26-192) 08/24/21 09:20 Total Protein 4.9 gm/dl (6.4-8.2) L 08/24/21 16:55 Albumin 1.2 gm/dl (3.4-5.0) L 08/24/21 16:55 Globulin 3.7 gm/dl (2.5-4.0) 08/24/21 16:55 Albumin/Globulin Ratio 0.3 (0.9-2) L 08/24/21 16:55 TSH 0.446 uIu/ml (0.300-4.500) 08/24/21 09:20 Random Cortisol 35.95 mcg/dl 08/24/21 13:19 Urine Color Dark Yellow 08/24/21 10:44 Urine Appearance Clear (Clear) 08/24/21 10:44 Urine pH 8.5 (4.5-7.5) H 08/24/21 10:44 Ur Specific [place] 1.018 (1.000-1.030) 08/24/21 10:44 Urine Protein Trace (Negative) H 08/24/21 10:44 Urine Glucose (UA) Negative (Negative) 08/24/21 10:44 Urine Ketones Negative (Negative) 08/24/21 10:44 Urine Blood Negative (Negative) 08/24/21 10:44 Urine Nitrite Negative (Negative) 08/24/21 10:44 Urine Bilirubin Negative (Negative) 08/24/21 10:44 Urine Urobilinogen Negative (Negative) 08/24/21 10:44 Ur Leukocyte Esterase Negative (Negative) 08/24/21 10:44 Urine WBC (Auto) 1-5 /hpf (0-5) 08/24/21 10:44 Urine RBC (Auto) 0-4 /hpf (0-4) 08/24/21 10:44 U Hyaline Cast (Auto) 5-10 /lpf (0-5) H 08/24/21 10:44 U Epithel Cells (Auto) 20-30 /lpf (0-5) H 08/24/21 10:44 Urine Bacteria (Auto) Negative (Negative) 08/24/21 10:44 SARS-CoV-2, RNA, NAAT NEGATIVE (NEGATIVE) 08/24/21 09:47 Blood Type A Negative 08/24/21 10:07 Antibody Screen NEGATIVE 08/24/21 10:07 Crossmatch See Detail 08/24/21 10:07 Impressions Abdomen/Pelvis CT 08/24/21 10:18 CT OF THE ABDOMEN AND PELVIS WITH CONTRAST CLINICAL HISTORY: low bp, anemia COMPARISON STUDY: CT of the abdomen and pelvis May 31, 2021. TECHNIQUE: Following IV administration of 95 mL of Optiray, axial images of the abdomen and pelvis were obtained from the lung bases to the proximal femurs. Images were reviewed in the axial, sagittal, and coronal planes. IV contrast was administered without complication. Automated exposure control was utilized for the study. A dose lowering technique was utilized adhering to the principles of ALARA. FINDINGS: Please note that the chest CT will be reported separately. No pneumatosis, free air or portal venous gas is present. Note is made of interval placement of a choleduodenal stent. The distal aspect of stent projects over the duodenal wall. Therefore, this stent may be partially withdrawn. The proximal aspect is within the gallbladder. There are gallstones within the gallbladder as well as gas. There has been interval development of an adjacent fluid and gas containing multiloculated hepatic fluid collection that measures 2.7 x 2.6 cm. This is contiguous with the gallbladder. Disruption of the gallbladder wall is noted on axial image 106 of 421. There is mild pericholecystic infiltration. Mild dilatation of the common bile duct measuring 9 mm in caliber similar to prior exam. There is mild wall thickening of the common bile duct. Several hepatic cysts are noted. There is a cyst within the lower pole of the left kidney. The spleen, adrenal glands and pancreas are unremarkable. There is no peripancreatic infiltration. There is no evidence for a bowel obstruction. Mild wall thickening of the ascending colon is noted. This may be due to under distention. The appendix is normal. There is no lymphadenopathy. Lord balloon is present within the bladder which is collapsed. Multiple old lower thoracic and lumbar spine compression fractures are unchanged. IMPRESSION: 1. Interval placement of a choleduodenal stent. Distal aspect of stent projects over the duodenal wall and may be partially withdrawn. Proximal aspect of stent within the gallbladder. 2. Cholelithiasis with pericholecystic infiltration. Disrupted gallbladder wall with adjacent 2.7 x 2.6 cm fluid and gas containing hepatic collection suggestive of an hepatic abscess. The findings suggest a perforated acute cholecystitis. 3. No change in mild dilatation of the common bile duct. Mild wall thickening of the common bile duct which could be correlated with liver function tests. 4. Mild wall thickening of the ascending colon which is likely due to underdistention although a mild colitis could appear similar. ACT 112: Negative or not required by law. Electronically signed by: Rodney Gilbert M.D. 08/24/2021 12:[address] 08/24/21 10:18 CT chest diagnostic w con CLINICAL HISTORY: low bp, anemia TECHNIQUE: Multidetector row helical CT of the chest was performed. Coronal and sagittal reformations were obtained. Automated dose lowering techniques and/or adjustment according to patient size were utilized for this exam. Comparison: None available at the time of this dictation. FINDINGS: Lungs and pleura: Prominent pleural fat is seen. There is bilateral atelectasis and trace pleural effusions. Heart and pericardium: There is cardiomegaly without evidence of pericardial effusion. Vessels: Unremarkable. Mediastinum and quinton: Unremarkable. Chest wall and lower neck: Unremarkable. Abdomen: For findings below the diaphragm, please refer to CT of the abdomen dated the same. Bones: Bilateral shoulder arthroplasties are seen. IMPRESSION: Trace bilateral pleural effusions and atelectasis. Cardiomegaly. Otherwise no acute abnormalities. ACT 112: Negative or not required by law. Electronically signed by: Vicente Edwards M.D. 08/24/2021 11:[address] 08/24/21 10:18 CT OF THE HEAD WITHOUT CONTRAST CLINICAL HISTORY: Fall. COMPARISON STUDY: No previous studies for comparison. TECHNIQUE: Helical axial images of the head were obtained without IV contrast. Automated exposure control was utilized for the study. A dose lowering technique was utilized adhering to the principles of ALARA. FINDINGS: No acute intracranial hemorrhage, midline shift or mass effect is present. Mild white matter hypodensity suggests small vessel disease. The ventricular system is unremarkable. The basal cisterns are patent. No extra- axial collections are present. There are no findings to suggest acute dural sinus thrombosis or acute territorial infarct. No significant calvarial abnormalities are present. There is minimal mucosal thickening of the left maxillary sinus which is diminutive. Note is made of a small left temporal scalp contusion. IMPRESSION: 1. No acute intracranial findings. 2. Left temporal scalp contusion. No calvarial fracture. ACT 112: Negative or not required by law. Electronically signed by: Rodney Gilbert M.D. 08/24/2021 11:42 AM Endo Retro Cholangiopancreatogram 08/24/21 14:27 [place] ERCP biliary ductal CLINICAL HISTORY: ERCP COMPARISON STUDY: 05/31/[address] of the abdomen and pelvis from 08/24/2021 FLUOROSCOPY TIME: 41. FLUOROSCOPIC IMAGES: 8 FINDINGS: There is a: The duodenal stent in place. Contrast was injected into the gallbladder through the stent. Multiple stones are present within the gallbladder. Extravasation of contrast is also seen outside the gallbladder. IMPRESSION: Status post injection of contrast through the patient's choline duodenal stent. Cholelithiasis is present. Please correlate with intraoperative fluoroscopy and operative report. ACT 112: Negative or not required by law. Electronically signed by: Francois Romano M.D. 08/24/2021 4:14 PM Chest X-Ray 08/24/21 16:32 XR chest 1V portable at 4:48 PM CLINICAL HISTORY: Post intubation and central line. COMPARISON STUDY: 08/24/2021 at 10:02 AM TECHNIQUE: 1 view of the chest FINDINGS: Single frontal view of the chest demonstrates the cardiomediastinal silhouette to be within normal limits. Endotracheal tube has been placed with its tip at the level of the tana. Should be retracted at least 2 cm. NG tube is curled upon itself within the upper body of the stomach. The tip of the right subclavian catheter is within the right atrium and most likely should be retracted. There has been interval development of central vascular congestion. There is also very mild peripheral interstitial edema. There is no evidence for pleural effusion. No confluent alveolar opacities are identified. There is no acute osseous pathology. IMPRESSION: 1. Tip of ET tube at the tana and should be retracted at least 2 cm. 2. Tip of right subclavian catheter within the right atrium and should be retracted as well. 3. Tip of NG tube is coronal within the upper body of the stomach. 4. Interval development of central vascular congestion and mild interstitial edema. ACT 112: Negative or not required by law. Electronically signed by: Francois Romano M.D. 08/24/2021 5:00 PM ECG Additional Comments: DICTATED BY:Ghassan Natarajan MD Test Reason : Blood Pressure : / mmHG Vent. Rate : 064 BPM Atrial Rate : 064 BPM P-R Int : 176 ms QRS Dur : 100 ms QT Int : 468 ms P-R-T Axes : -18 -18 114 degrees QTc Int : 482 ms Normal sinus rhythm Possible Anterior infarct , age undetermined Abnormal ECG When compared with ECG of 30-MAY-2021 14:55, Borderline criteria for Anterior infarct are now Present Nonspecific T wave abnormality, improved in Inferior leads T wave inversion less evident in Anterolateral leads QT has lengthened Confirmed by Ghassan Natarajan ([id number]) on 08/24/2021 10:30:40 AM Referred By: Confirmed By:Ghassan Natarajan Code Status & VTE Plan Code Status Full per discussion with patient, at bedside VTE Prophylaxis Plan VTE Prophylaxis will be ordered: Yes PG Care Time/CCT Total # of Minutes Spent Total Time Spent with Patient: Total time spent is greater than 50% in coordination of care (as documented) at patient's floor/unit and/or counseling patient: Coding Level of Care Code 59371 Initial Inpt Care Lvl 3 Diagnoses Cholecystitis with perforation of gallbladder K82.A2 Acute hypotension I95.9 Hypoglycemia E16.2 Iron deficiency anemia D50.9 Acute blood loss anemia D62 Ischemic cardiomyopathy I25.5 Coronary artery disease I25.10 Rheumatoid arthritis M06.9 Hyperlipidemia E78.5 Hypothyroidism E03.9 GERD (gastroesophageal reflux disease) K21.9
[2021-08-24] MEDS ORDERED: INDOMETHACIN 50 MG SUPP PR ONE (14:40)
[2021-08-24] MEDS ORDERED: fentaNYL citrate 100 MCG/2 ML VIAL IV PRN (14:47)
[2021-08-24] MEDS ORDERED: ATROPINE SULFATE 0.1 MG/ML 10ML SYR IV PRN (14:47)
[2021-08-24] MEDS ORDERED: ONDANSETRON INJ 2 MG/ML 2 ML VIAL IV PRN (14:47)
[2021-08-24] MEDS ORDERED: ePHEDrine sulfate 50 MG/ML AMP IV PRN (14:47)
--- NOTE | 2021-08-24 14:51 | Gastrointestinal Consultation ---
Date of Consultation August 24, 2021 Assessment & Plan (1) Cholecystitis with perforation of gallbladder: Plan for EGD to clear the lumen of the GB, attempt lithotripsy and placed a plastic double pigtail stent. ABx. Patient was explained in detail regarding risks, benefits, limitations and alternatives of the above endoscopic procedure. Risks of intravenous sedation used for procedure were also explained. Risks include, but not limited to perforation, bleeding, infection, respiratory distress, cardiac arrest and . Patient is also aware about the possibility of missed lesion. Patient's questions were answered. The patient verbalized understanding the information and agreed to undergo the procedure. History of Present Illness History of Present Illness 71 years old female patient with multiple medical comorbids including CHF, Hx of cholecystitis and choledocholithiasis, non surgical candidate hence had EUS-GB drainage with Axios stent 2 months ago, now presented with AMS, Anemia and possible liver abscess near the GB fundus, ? GB wall perforation. Given blood and fluids and back to normal mental status. Denies any fever, chills, abdominal pain or vomiting. On CT stent in place but seems the large GB stone had impacted to lumen. GB is distended. No leukocytosis. Allergies Allergy/AdvReac Type Severity Reaction Status Date / Time bacitracin Allergy Intermediate Hives, Verified 08/24/21 12:09 blisters clavulanic acid Allergy Intermediate Hives Verified 08/24/21 12:09 diphenhydramine Allergy Intermediate Hives Verified 08/24/21 12:09 iodine Allergy Intermediate Hives Verified 08/24/21 12:09 ketorolac Allergy Intermediate Hives Verified 08/24/21 12:09 meclofenamic acid Allergy Intermediate Hives Verified 08/24/21 12:09 neomycin Allergy Intermediate Hives, Verified 08/24/21 12:09 blisters NSAIDS (Non-Steroidal Allergy Intermediate Hives Verified 08/24/21 12:09 Anti-Inflamma (tolerates Celebrex) oxycodone Allergy Intermediate Hives Verified 08/24/21 12:09 (tolerates Vicodin) polymyxin B Allergy Intermediate Hives, Verified 08/24/21 12:09 blisters quinine Allergy Intermediate Hives Verified 08/24/21 12:09 Sulfa (Sulfonamide Allergy Intermediate Hives Verified 08/24/21 12:09 Antibiotics) tramadol Allergy Intermediate Hives, Verified 08/24/21 12:09 itching adhesive Allergy Mild Rash Verified 08/24/21 12:09 latex Allergy Mild Rash Verified 08/24/21 12:09 povidone-iodine Allergy Mild Rash Verified 08/24/21 12:09 doxycycline Allergy Anaphylaxis Unverified 08/24/21 12:09 meperidine AdvReac Intermediate N/V Verified 08/24/21 12:09 prednisone AdvReac Intermediate Made Verified 08/24/21 12:09 "bones soft" aspirin AdvReac Mild N/V Verified 08/24/21 12:09 Home Medications Medication Instructions Recorded Confirmed Type magnesium oxide 400 mg (241.3 mg 400 mg PO BID tab 05/26/18 08/24/21 History magnesium) tablet docusate sodium 100 mg capsule 100 mg PO BID PRN 02/26/19 08/24/21 History zoledronic acid 5 mg/100 mL in 5 mg/kg IV YEARLY ml 03/02/19 08/24/21 History mannitol 5 %-water intravenous piggybck nitroglycerin 0.4 mg sublingual 0.4 mg SUBLINGUAL Q5M PRN #25 tab 02/22/21 08/24/21 Rx tablet (Nitrostat) nortriptyline 10 mg capsule 10 mg PO QAM #90 cap 02/27/21 08/24/21 Rx levothyroxine 75 mcg tablet 75 mcg PO QAM #90 tab 03/15/21 08/24/21 Rx Singulair 10 mg tablet 10 mg PO QPM #90 tab NS 04/17/21 08/24/21 Rx (montelukast) atorvastatin 40 mg tablet 40 mg PO DAILY #90 tab 05/25/21 08/24/21 Rx aspirin 81 mg tablet,delayed 81 mg PO DAILY 05/30/21 08/24/21 History release nortriptyline 25 mg capsule 25 mg PO HS #90 cap 06/08/21 08/24/21 Rx lansoprazole 15 mg capsule,delayed 15 mg PO QAM #90 cap 06/19/21 08/24/21 Rx release escitalopram oxalate 20 mg tablet 20 mg PO QAM #90 tab 07/23/21 08/24/21 Rx (Lexapro) calcium carbonate 600 mg-vitamin 1 tab PO BID 08/24/21 08/24/21 History D3 5 mcg (200 unit) tablet celecoxib 200 mg capsule 200 mg PO BID 08/24/21 08/24/21 History folic acid 1 mg tablet 1 mg PO DAILY 08/24/21 08/24/21 History methotrexate sodium 2.5 mg tablet 20 mg PO WK 08/24/21 08/24/21 History metoprolol succinate 100 mg 150 mg PO QAM 08/24/21 08/24/21 History tablet,extended release 24 hr ondansetron 4 mg disintegrating 4 mg TRANSLINGUAL Q12 PRN 08/24/21 08/24/21 History tablet valacyclovir 1 gram tablet 2,000 mg PO DAILY PRN 08/24/21 08/24/21 History Patient History Medical History Allergic rhinitis Anemia Chronic, hgb baseline 10-11 range per chart review Anxiety Asthma stable Chronic back pain Coronary artery disease cardiac catheterization -02/22/2021:Impression: 1. Severe CAD involving ostial/proximal LAD (100%), filling via left to left and right to left collaterals. 2. Otherwise nonobstructive CAD involving the mid circumflex. 3. No aortic stenosis. 4. Normal left-sided filling pressure. Depression GERD (gastroesophageal reflux disease) controlled History of right breast cancer s/p lumpectomy (1969)- no chemo or xrt Hx of fracture Right shoulder AC joint fracture (10/2020) due to traumatic event > healing without surgical intervention Hyperlipidemia Hypertension Hypothyroidism IBS (irritable bowel syndrome) Insomnia Ischemic cardiomyopathy Lumbar facet joint syndrome Lumbar spinal stenosis Osteoarthritis Rheumatoid arthritis On Methotrexate Sacroiliitis Steroid-induced osteoporosis Surgical History H/O arthroscopy of shoulder L shoulder H/O cataract extraction R/L eye History of arthroscopy of left knee History of breast biopsy History of foot surgery R/L History of lumpectomy of right breast History of right knee joint replacement History of tonsillectomy History of total abdominal hysterectomy and bilateral salpingo-oophorectomy d/t endometriosis S/P ORIF (open reduction internal fixation) fracture Left ankle S/p reverse total shoulder arthroplasty Left reverse TSA (02/26/19): Grade view 2, MAC#3, ETT 7 + PNB at [facility] (scope patch used) Family History Grandmother (Paternal) Family history of diabetes mellitus Grandmother (Maternal) Family history of diabetes mellitus Father Coronary heart disease Alzheimer disease Myocardial infarction Osteoarthritis COPD (chronic obstructive pulmonary disease) Lung disease Mother Myocardial infarction COPD (chronic obstructive pulmonary disease) Other No family history of adverse response to anesthesia Denies family history of Ovarian cancer Prostate cancer Breast cancer Colorectal cancer Social History Smoking Status: Never smoker Second Hand Exposure: No; Hx Alcohol Use: No Hx Substance Use: No Preferred Language: [place] Communication Ability: Effective Visual Impairment: Limited Hearing Ability: Normal Lace Sewer Required: No Beliefs That Will Affect Care: None marital status: Current Living Situation: Spouse Current Living Situation Comment: granddaughter lives with pt too current occupational status: retired How many Children do You have: 2 Feels Safe at Home: Yes Childhood Exposure to Second-Hand Smoke: Yes caffeine: Yes (coffee) during the past year weight has: remained stable Dental Care, Regularly: No Physical Activity Frequency: Daily Physical Activity Frequency Comment: chores Seatbelt Use: always Sunscreen Use: No Assistive Devices: None Review of Systems Constitutional: no fever, no chills, no fatigue and no weight loss Eyes: no eye pain and no worsening vision Ear, Nose, Mouth, Throat: no tinnitus, no dizziness, no nasal discharge and no epistaxis Respiratory: no cough, no dyspnea, no dyspnea on exertion and no wheezing Cardiovascular: no chest pain, no orthopnea, no palpitations and no edema Gastrointestinal: as per Subjective / HPI Genitourinary: no dysuria, no urinary frequency, no urinary incontinence and no hematuria Musculoskeletal: no stiffness and no myalgia Neurologic: no localized weakness, no paralysis, no tremor(s) and no headache(s) Endocrine: no polydipsia and no polyuria Hematologic / Lymphatic: no easy bleeding and no night sweats Physical Exam Constitutional: + well hydrated, cooperative and comfortable Eyes: PERRL, conjunctivae normal, anicteric sclerae ENMT: external ear and nose normal, oropharynx normal Neck: normal visual inspection and trachea midline Respiratory: normal respiratory effort, lungs clear to auscultation Auscultation: no wheezes Cardiovascular: RRR, no murmur, no edema Gastrointestinal (Abdomen): normal bowel sounds, soft, nontender, no hepatosplenomegaly Musculoskeletal: no cyanosis or clubbing, extremities motor strength 5/5 Skin: no rashes, warm and dry Neurologic: awake; no focal motor deficits Motor/Sensory: no tremor Results & Data ([facility]) Vital Signs (Past 12 Hours) Vital Signs Temp Pulse Pulse Resp BP BP Pulse Ox 08/24/21 14:30 65 16 102/77 94 08/24/21 14:14 36.4 C L 66 24 110/55 L 95 08/24/21 13:59 36.4 C L 67 24 105/65 94 08/24/21 13:41 36.4 C L 69 27 H 109/63 94 08/24/21 12:50 36.2 C L 69 19 106/74 08/24/21 12:20 35.5 C L 69 16 111/60 93 08/24/21 12:05 35.5 C L 69 16 107/65 95 08/24/21 11:42 34.5 C L 65 21 96 08/24/21 11:29 67 20 95/60 L 95 08/24/21 11:05 65 21 92/59 L 96 08/24/21 11:00 63 22 78/49 L 97 08/24/21 10:58 61 22 68/44 L 97 08/24/21 10:34 61 24 58/38 L 99 08/24/21 10:13 35.8 C L 08/24/21 10:08 55/35 L 08/24/21 09:21 60/38 L 08/24/21 09:11 94 08/24/21 08:56 36.4 C L 64 19 58/40 L 98 Laboratory Results Laboratory Results - last 24 hr 08/24/21 08/24/21 08/24/21 08:59 09:20 09:20 WBC 6.37 RBC 2.34 L Hgb 7.4 L Hct 25.0 L MCV 106.8 H MCH 31.6 MCHC 29.6 L RDW Std Deviation 90.5 H RDW Coeff of Ender 24.4 H Plt Count 187 MPV 11.5 H Immature Gran % (Auto) 1.6 Neut % (Auto) 83.0 Lymph % (Auto) 8.8 Howard % (Auto) 4.2 Eos % (Auto) 2.2 Baso % (Auto) 0.2 Neut # (Auto) 5.29 Lymph # (Auto) 0.56 L Howard # (Auto) 0.27 Eos # (Auto) 0.14 Baso # (Auto) 0.01 Immature Gran # (Auto) 0.10 H Toxic Vacuolation 1+ Polychromasia 1+ Hypochromasia Present Anisocytosis Present Macrocytosis Present Sodium 136 Potassium 4.8 Chloride 104 Carbon Dioxide 20 L Anion Gap 12.0 H BUN 16 Creatinine 1.50 H Est Cr Clr Drug Dosing Not Reportable Est GFR ( Amer) 40.8 Est GFR (Non-Af Amer) 35.2 BUN/Creatinine Ratio 10.6 Glucose 57 L POC Glucose 49 L* Lactate Calcium 8.6 Magnesium 2.0 Total Bilirubin 0.7 AST 40 H ALT 15 Alkaline Phosphatase 240 H D Total Creatine Kinase 57 Total Protein 5.6 L Albumin 1.2 L Globulin 4.4 H Albumin/Globulin Ratio 0.3 L TSH 0.446 Random Cortisol Urine Color Urine Appearance Urine pH Ur Specific [place] Urine Protein Urine Glucose (UA) Urine Ketones Urine Blood Urine Nitrite Urine Bilirubin Urine Urobilinogen Ur Leukocyte Esterase Urine WBC (Auto) Urine RBC (Auto) U Hyaline Cast (Auto) U Epithel Cells (Auto) Urine Bacteria (Auto) SARS-CoV-2, RNA, NAAT Blood Type Antibody Screen Crossmatch 08/24/21 08/24/21 08/24/21 09:42 09:47 10:07 WBC RBC Hgb Hct MCV MCH MCHC RDW Std Deviation RDW Coeff of Ender Plt Count MPV Immature Gran % (Auto) Neut % (Auto) Lymph % (Auto) Howard % (Auto) Eos % (Auto) Baso % (Auto) Neut # (Auto) Lymph # (Auto) Howard # (Auto) Eos # (Auto) Baso # (Auto) Immature Gran # (Auto) Toxic Vacuolation Polychromasia Hypochromasia Anisocytosis Macrocytosis Sodium Potassium Chloride Carbon Dioxide Anion Gap BUN Creatinine Est Cr Clr Drug Dosing Est GFR ( Amer) Est GFR (Non-Af Amer) BUN/Creatinine Ratio Glucose POC Glucose Lactate 7.6 H* Calcium Magnesium Total Bilirubin AST ALT Alkaline Phosphatase Total Creatine Kinase Total Protein Albumin Globulin Albumin/Globulin Ratio TSH Random Cortisol Urine Color Urine Appearance Urine pH Ur Specific [place] Urine Protein Urine Glucose (UA) Urine Ketones Urine Blood Urine Nitrite Urine Bilirubin Urine Urobilinogen Ur Leukocyte Esterase Urine WBC (Auto) Urine RBC (Auto) U Hyaline Cast (Auto) U Epithel Cells (Auto) Urine Bacteria (Auto) SARS-CoV-2, RNA, NAAT NEGATIVE Blood Type A Negative Antibody Screen NEGATIVE Crossmatch See Detail 08/24/21 08/24/21 08/24/21 10:11 10:44 11:30 WBC RBC Hgb Hct MCV MCH MCHC RDW Std Deviation RDW Coeff of Ender Plt Count MPV Immature Gran % (Auto) Neut % (Auto) Lymph % (Auto) Howard % (Auto) Eos % (Auto) Baso % (Auto) Neut # (Auto) Lymph # (Auto) Howard # (Auto) Eos # (Auto) Baso # (Auto) Immature Gran # (Auto) Toxic Vacuolation Polychromasia Hypochromasia Anisocytosis Macrocytosis Sodium Potassium Chloride Carbon Dioxide Anion Gap BUN Creatinine Est Cr Clr Drug Dosing Est GFR ( Amer) Est GFR (Non-Af Amer) BUN/Creatinine Ratio Glucose POC Glucose 153 H 122 H Lactate Calcium Magnesium Total Bilirubin AST ALT Alkaline Phosphatase Total Creatine Kinase Total Protein Albumin Globulin Albumin/Globulin Ratio TSH Random Cortisol Urine Color Dark Yellow Urine Appearance Clear Urine pH 8.5 H Ur Specific [place] 1.018 Urine Protein Trace H Urine Glucose (UA) Negative Urine Ketones Negative Urine Blood Negative Urine Nitrite Negative Urine Bilirubin Negative Urine Urobilinogen Negative Ur Leukocyte Esterase Negative Urine WBC (Auto) 1-5 Urine RBC (Auto) 0-4 U Hyaline Cast (Auto) 5-10 H U Epithel Cells (Auto) 20-30 H Urine Bacteria (Auto) Negative SARS-CoV-2, RNA, NAAT Blood Type Antibody Screen Crossmatch 08/24/21 08/24/21 08/24/21 11:37 13:19 13:53 WBC RBC Hgb Hct MCV MCH MCHC RDW Std Deviation RDW Coeff of Ender Plt Count MPV Immature Gran % (Auto) Neut % (Auto) Lymph % (Auto) Howard % (Auto) Eos % (Auto) Baso % (Auto) Neut # (Auto) Lymph # (Auto) Howard # (Auto) Eos # (Auto) Baso # (Auto) Immature Gran # (Auto) Toxic Vacuolation Polychromasia Hypochromasia Anisocytosis Macrocytosis Sodium Potassium Chloride Carbon Dioxide Anion Gap BUN Creatinine Est Cr Clr Drug Dosing Est GFR ( Amer) Est GFR (Non-Af Amer) BUN/Creatinine Ratio Glucose POC Glucose 117 H Lactate 7.3 H* Calcium Magnesium Total Bilirubin AST ALT Alkaline Phosphatase Total Creatine Kinase Total Protein Albumin Globulin Albumin/Globulin Ratio TSH Random Cortisol 35.95 Urine Color Urine Appearance Urine pH Ur Specific [place] Urine Protein Urine Glucose (UA) Urine Ketones Urine Blood Urine Nitrite Urine Bilirubin Urine Urobilinogen Ur Leukocyte Esterase Urine WBC (Auto) Urine RBC (Auto) U Hyaline Cast (Auto) U Epithel Cells (Auto) Urine Bacteria (Auto) SARS-CoV-2, RNA, NAAT Blood Type Antibody Screen Crossmatch
[2021-08-24] MEDS ORDERED: MIDAZOLAM HCL 1 MG/ML 2ML VIAL ONE ×2 (15:34→15:56)
--- NOTE | 2021-08-24 15:44 | Operative Report ---
Post Operative Report Pre & Post Diagnosis Operation Date: 08/24/21 08:20 Pre-Op Diagnosis: Cholecystitis with perforation of gallbladder Post-Op Diagnosis: Cholecystitis with perforation of gallbladder I identified the patient and participated in the time-out.: Yes Procedure Operation Date: 08/24/21 08:20 Actual Procedures p Endoscopic Retrograde Cholangiopancreatogram(Not Applicable) - Mis Ellison MD Surgeon Mis Ellison MD [employer] Developer None Estimated Blood Loss 0 Findings See Below (EGD scope introduced and Gallbladder stent seen, contrast injected and immediately patient had a cardiac arrest hence procedure aborted and patient rescusuitated. ) Specimens None Description of Procedure ERCP I attest to the content of the Intraoperative Record and any orders documented therein. Any exceptions are noted below.
--- NOTE | 2021-08-24 16:14 | Gastroenterology Progress Note ---
Date of Service August 24, 2021 Assessment & Plan Admission and Anticipated Discharge Date Admission Date: August 24, 2021 Subjective Patient [place] [facility] [place] and possible embolization from bleeding from the Liver Parenchymal abscess. I am contacting them for transfer. Results & Data ([facility]) Vital Signs (Past 12 Hours) Vital Signs Temp Pulse Pulse Resp BP BP Pulse Ox 08/24/21 14:30 36.5 C 66 20 112/71 97 08/24/21 14:14 36.4 C L 66 24 110/55 L 95 08/24/21 13:59 36.4 C L 67 24 105/65 94 08/24/21 13:41 36.4 C L 69 27 H 109/63 94 08/24/21 12:50 36.2 C L 69 19 106/74 08/24/21 12:20 35.5 C L 69 16 111/60 93 08/24/21 12:05 35.5 C L 69 16 107/65 95 08/24/21 11:42 34.5 C L 65 21 96 08/24/21 11:29 67 20 95/60 L 95 08/24/21 11:05 65 21 92/59 L 96 08/24/21 11:00 63 22 78/49 L 97 08/24/21 10:58 61 22 68/44 L 97 08/24/21 10:34 61 24 58/38 L 99 08/24/21 10:13 35.8 C L 08/24/21 10:08 55/35 L 08/24/21 09:21 60/38 L 08/24/21 09:11 94 08/24/21 08:56 36.4 C L 64 19 58/40 L 98
--- NOTE | 2021-08-24 16:16 | Fluoroscopy Report ---
[place] ERCP biliary ductal CLINICAL HISTORY: ERCP COMPARISON STUDY: 05/31/[address] of the abdomen and pelvis from 08/24/2021 FLUOROSCOPY TIME: 41. FLUOROSCOPIC IMAGES: 8 FINDINGS: There is a: The duodenal stent in place. Contrast was injected into the gallbladder through the stent. Multiple stones are present within the gallbladder. Extravasation of contrast is also see n outside the gallbladder. IMPRESSION: Status post injection of contrast through the patient's choline duodenal stent. Cholelit hiasis is present. Please correlate with intraoperative fluoroscopy and operative report. ACT 112: Negative or not required by law. Electronically signed by: Francois Romano M.D. 08/24/2021 4:14 PM
[2021-08-24] MEDS ORDERED: ICU PROTOCOL FOR HYPERGLYCEMIA PRN (16:28)
[2021-08-24] MEDS ORDERED: DOCUSATE SODIUM 100 MG CAP PO PRN (16:28)
[2021-08-24] MEDS ORDERED: SUCCINYLCHOLINE 100MG/5ML SYR IV ONE (16:32)
[2021-08-24] MEDS ORDERED: ROCURONIUM BROMIDE 10 MG/ML 5 ML VIAL IV ONE (16:32)
--- NOTE | 2021-08-24 16:43 | Critical Care Consultation ---
Date of Consultation August 24, 2021 Assessment & Plan (1) Cholecystitis with perforation of gallbladder: (2) Septic shock: (3) Acidosis, lactic: (4) Acute blood loss anemia: (5) Hypertension: -- VDRF Likely secondary to cardiac arrest Continue with ventilatory support Keep RASS -1 Daily sedation holidays and SBT's Chlorhexidine mouthwash --Shock Combination of septic as well as post cardiac arrest Continue with vasopressor support to keep MAP greater than 65 Continue with broad-spectrum antibiotics Random cortisol 36 which feels appropriate -- Acute blood loss anaemia Likely secondary to upper GI bleed post procedure Type and screen Patient got 4 units of PRBC so far Monitor H&H --High anion gap metabolic acidosis Likely from shock with lactic acidosis Patient has gotten 4 L of IV fluid so far Trend lactate -- RHIANNON Follow-up urine lites Monitor BUN/creatinine Avoid nephrotoxic medications Strict ins and outs --Elevated alk phos Likely from cholecystitis --RA on methotrexate --Prophylaxis VTE: IPC GI: Protonix drip Lines: Right IJ, right radial, positive Lord Diet: N.p.o. Plan: Give 1 more liter of fluid Patient got 4 units of PRBC, will give 2 units of FFP We will repeat labs stat. Along with PT/INR and PTT If the platelets are trending down and will give more platelets. Consideration of cryoprecipitate will also be given Titrate down FiO2 as patient is saturating 100%. GI is already talking with tertiary care center so that the patient can be transferred. Keep the patient n.p.o. Repeat H&H every 4 hours. I have personally spent 55 minutes of critical care time in the direct management of this patient. This is a life/limb threatening event. This includes time spent evaluating patient, direct bedside care, chart review, placing orders, interpretation of diagnostic studies, discussion with consultants, patient, and family members, as well as other required patient management activities. This time is exclusive of all separately billable procedures, and teaching time and separate from and in addition to any other critical care service time. Please note the above document was generated using voice recognition software. It may contain grammatical, syntax or spelling errors. History of Present Illness Attending Physician: Sierra Ireland DO History of Present Illness 71-year-old female with complicated past medical history including dyslipidemia, rheumatoid arthritis on methotrexate and coronary artery disease. Patient also had Covid-19 back in June. She also has chronic anemia. Patient has history of cholecystitis and as she was not a surgical candidate ERCP and stent was placed in at the end of May and she was discharged home on 06/03/2021 This time patient came to the hospital with generalized fatigue. Positive chills no fever chills In the ED patient was found to be hypotensive with possible abscess near the gallbladder. Plan was initially to transfer the patient to a tertiary care center but then possibility of restenting the stent for drainage was done. Patient was taken to the OR unfortunately she had a cardiac arrest after contrast was pushed in which probably went to the portal vein and into the circulation. Patient was successfully resuscitated. And transferred to MICU At the time of examination patient map was in the 80s. She was on 0.3 of epi. We went down 2.15 and she was still maintaining the map in the 70s. She is still getting bright red blood from the NGT which seems to have clotted. She is paralyzed not breathing over the vent Patient has got so far 4 units of PRBC. She will get 2 more units of FFP History obtained from previous records as well as direct signout from Dr. Pedro Cruz and anesthesia. Allergies Allergy/AdvReac Type Severity Reaction Status Date / Time bacitracin Allergy Intermediate Hives, Verified 08/24/21 12:09 blisters clavulanic acid Allergy Intermediate Hives Verified 08/24/21 12:09 diphenhydramine Allergy Intermediate Hives Verified 08/24/21 12:09 iodine Allergy Intermediate Hives Verified 08/24/21 12:09 ketorolac Allergy Intermediate Hives Verified 08/24/21 12:09 meclofenamic acid Allergy Intermediate Hives Verified 08/24/21 12:09 neomycin Allergy Intermediate Hives, Verified 08/24/21 12:09 blisters NSAIDS (Non-Steroidal Allergy Intermediate Hives Verified 08/24/21 12:09 Anti-Inflamma (tolerates Celebrex) oxycodone Allergy Intermediate Hives Verified 08/24/21 12:09 (tolerates Vicodin) polymyxin B Allergy Intermediate Hives, Verified 08/24/21 12:09 blisters quinine Allergy Intermediate Hives Verified 08/24/21 12:09 Sulfa (Sulfonamide Allergy Intermediate Hives Verified 08/24/21 12:09 Antibiotics) tramadol Allergy Intermediate Hives, Verified 08/24/21 12:09 itching adhesive Allergy Mild Rash Verified 08/24/21 12:09 latex Allergy Mild Rash Verified 08/24/21 12:09 povidone-iodine Allergy Mild Rash Verified 08/24/21 12:09 doxycycline Allergy Anaphylaxis Unverified 08/24/21 12:09 meperidine AdvReac Intermediate N/V Verified 08/24/21 12:09 prednisone AdvReac Intermediate Made Verified 08/24/21 12:09 "bones soft" aspirin AdvReac Mild N/V Verified 08/24/21 12:09 Home Medications Medication Instructions Recorded Confirmed Type magnesium oxide 400 mg (241.3 mg 400 mg PO BID tab 05/26/18 08/24/21 History magnesium) tablet docusate sodium 100 mg capsule 100 mg PO BID PRN 02/26/19 08/24/21 History zoledronic acid 5 mg/100 mL in 5 mg/kg IV YEARLY ml 03/02/19 08/24/21 History mannitol 5 %-water intravenous piggybck nitroglycerin 0.4 mg sublingual 0.4 mg SUBLINGUAL Q5M PRN #25 tab 02/22/21 08/24/21 Rx tablet (Nitrostat) nortriptyline 10 mg capsule 10 mg PO QAM #90 cap 02/27/21 08/24/21 Rx levothyroxine 75 mcg tablet 75 mcg PO QAM #90 tab 03/15/21 08/24/21 Rx Singulair 10 mg tablet 10 mg PO QPM #90 tab NS 04/17/21 08/24/21 Rx (montelukast) atorvastatin 40 mg tablet 40 mg PO DAILY #90 tab 05/25/21 08/24/21 Rx aspirin 81 mg tablet,delayed 81 mg PO DAILY 05/30/21 08/24/21 History release nortriptyline 25 mg capsule 25 mg PO HS #90 cap 06/08/21 08/24/21 Rx lansoprazole 15 mg capsule,delayed 15 mg PO QAM #90 cap 06/19/21 08/24/21 Rx release escitalopram oxalate 20 mg tablet 20 mg PO QAM #90 tab 07/23/21 08/24/21 Rx (Lexapro) calcium carbonate 600 mg-vitamin 1 tab PO BID 08/24/21 08/24/21 History D3 5 mcg (200 unit) tablet celecoxib 200 mg capsule 200 mg PO BID 08/24/21 08/24/21 History folic acid 1 mg tablet 1 mg PO DAILY 08/24/21 08/24/21 History methotrexate sodium 2.5 mg tablet 20 mg PO WK 08/24/21 08/24/21 History metoprolol succinate 100 mg 150 mg PO QAM 08/24/21 08/24/21 History tablet,extended release 24 hr ondansetron 4 mg disintegrating 4 mg TRANSLINGUAL Q12 PRN 08/24/21 08/24/21 History tablet valacyclovir 1 gram tablet 2,000 mg PO DAILY PRN 08/24/21 08/24/21 History Patient History Medical History Allergic rhinitis Anemia Chronic, hgb baseline 10-11 range per chart review Anxiety Asthma stable Chronic back pain Coronary artery disease cardiac catheterization -02/22/2021:Impression: 1. Severe CAD involving ostial/proximal LAD (100%), filling via left to left and right to left collaterals. 2. Otherwise nonobstructive CAD involving the mid circumflex. 3. No aortic stenosis. 4. Normal left-sided filling pressure. Depression GERD (gastroesophageal reflux disease) controlled History of right breast cancer s/p lumpectomy (1969)- no chemo or xrt Hx of fracture Right shoulder AC joint fracture (10/2020) due to traumatic event > healing without surgical intervention Hyperlipidemia Hypertension Hypothyroidism IBS (irritable bowel syndrome) Insomnia Ischemic cardiomyopathy Lumbar facet joint syndrome Lumbar spinal stenosis Osteoarthritis Rheumatoid arthritis On Methotrexate Sacroiliitis Steroid-induced osteoporosis Surgical History H/O arthroscopy of shoulder L shoulder H/O cataract extraction R/L eye History of arthroscopy of left knee History of breast biopsy History of foot surgery R/L History of lumpectomy of right breast History of right knee joint replacement History of tonsillectomy History of total abdominal hysterectomy and bilateral salpingo-oophorectomy d/t endometriosis S/P ORIF (open reduction internal fixation) fracture Left ankle S/p reverse total shoulder arthroplasty Left reverse TSA (02/26/19): Grade view 2, MAC#3, ETT 7 + PNB at [facility] (scope patch used) Family History Grandmother (Paternal) Family history of diabetes mellitus Grandmother (Maternal) Family history of diabetes mellitus Father Coronary heart disease Alzheimer disease Myocardial infarction Osteoarthritis COPD (chronic obstructive pulmonary disease) Lung disease Mother Myocardial infarction COPD (chronic obstructive pulmonary disease) Other No family history of adverse response to anesthesia Denies family history of Ovarian cancer Prostate cancer Breast cancer Colorectal cancer Social History Smoking Status: Never smoker Second Hand Exposure: No; Hx Alcohol Use: No Hx Substance Use: No Preferred Language: Albanian Communication Ability: Effective Visual Impairment: Limited Hearing Ability: Normal 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: No Beliefs That Will Affect Care: None marital status: Current Living Situation: Spouse Current Living Situation Comment: granddaughter lives with pt too current occupational status: retired How many Children do You have: 2 Feels Safe at Home: Yes Childhood Exposure to Second-Hand Smoke: Yes caffeine: Yes (coffee) during the past year weight has: remained stable Dental Care, Regularly: No Physical Activity Frequency: Daily Physical Activity Frequency Comment: chores Seatbelt Use: always Sunscreen Use: No Assistive Devices: None Review of Systems Review of Systems: Unobtainable due to endotracheal tube Physical Exam Physical Exam: Constitutional: No acute distress HEENT:PERRLA, Bruise around the left eye Respiratory system: Decreased antibiotic, no wheeze, rhonchi, no crackles CVS: S1-S2 positive, no murmurs or gallops Abdomen: Soft, nontender, nondistended, positive bowel sounds x4, is Extremities: +2 pulses bilaterally radialis/ dorsalis pedis, no cyanosis, +1 pitting edema bilateral lower extremity Neuro: Sedated, paralyzed, breathing with vent Psych: Unable to assess G/U: Positive Lord Skin: no rashes, warm and dry Lymphatic: no cervical or axillary lymphadenopathy Results & Data Results & Data ([facility]) Vital Signs (Past 12 Hours) Vital Signs Temp Pulse Pulse Resp BP BP Pulse Ox 08/24/21 14:30 36.5 C 66 20 112/71 97 08/24/21 14:14 36.4 C L 66 24 110/55 L 95 08/24/21 13:59 36.4 C L 67 24 105/65 94 08/24/21 13:41 36.4 C L 69 27 H 109/63 94 08/24/21 12:50 36.2 C L 69 19 106/74 08/24/21 12:20 35.5 C L 69 16 111/60 93 08/24/21 12:05 35.5 C L 69 16 107/65 95 08/24/21 11:42 34.5 C L 65 21 96 08/24/21 11:29 67 20 95/60 L 95 08/24/21 11:05 65 21 92/59 L 96 08/24/21 11:00 63 22 78/49 L 97 08/24/21 10:58 61 22 68/44 L 97 08/24/21 10:34 61 24 58/38 L 99 08/24/21 10:13 35.8 C L 08/24/21 10:08 55/35 L 08/24/21 09:21 60/38 L 08/24/21 09:11 94 08/24/21 08:56 36.4 C L 64 19 58/40 L 98 Laboratory Results 08/24/21 09:20 08/24/21 09:20 Coding Level of Care Code Critical Care 1st 30-74 mins Diagnoses Cholecystitis with perforation of gallbladder K82.A2 Septic shock A41.9; R65.21 Acidosis, lactic E87.2 Acute blood loss anemia D62 Hypertension I10 Time Spent (min) 55
[2021-08-24] MEDS ORDERED: PANTOPRAZOLE BOLUS/DRIP 1 EA IV STA (16:45)
[2021-08-24] MEDS ORDERED: VANCOMYCIN CONSULT ACTIVE PRN (16:48)
--- NOTE | 2021-08-24 16:58 | Anesthesiology Progress Note ---
Date of Service August 24, 2021 Anesthesia Post Procedure Vital Signs Vital Signs: Temp Pulse Pulse Resp BP BP Pulse Ox 08/24/21 17:16 22 08/24/21 17:12 36.7 C 75 113/71 100 08/24/21 17:00 36.7 C 78 18 104/67 100 08/24/21 16:59 36.7 C 76 24 103/66 100 08/24/21 16:46 36.7 C 75 18 120/74 99 08/24/21 16:28 71 08/24/21 16:05 73 20 100 08/24/21 14:44 36.7 C 78 24 96/64 L 100 08/24/21 14:30 36.5 C 66 20 112/71 97 08/24/21 14:14 36.4 C L 66 24 110/55 L 95 08/24/21 13:59 36.4 C L 67 24 105/65 94 08/24/21 13:41 36.4 C L 69 27 H 109/63 94 08/24/21 12:50 36.2 C L 69 19 106/74 08/24/21 12:20 35.5 C L 69 16 111/60 93 08/24/21 12:05 35.5 C L 69 16 107/65 95 08/24/21 11:42 34.5 C L 65 21 96 08/24/21 11:29 67 20 95/60 L 95 08/24/21 11:05 65 21 92/59 L 96 08/24/21 11:00 63 22 78/49 L 97 08/24/21 10:58 61 22 68/44 L 97 08/24/21 10:34 61 24 58/38 L 99 08/24/21 10:13 35.8 C L 08/24/21 10:08 55/35 L 08/24/21 09:21 60/38 L 08/24/21 09:11 94 08/24/21 08:56 36.4 C L 64 19 58/40 L 98 Notes Mental Status: see notes below Patient Amnestic to Procedure: Yes Nausea / Vomiting: adequately controlled Pain: adequately controlled Airway Patency, RR, SpO2: see Notes below BP & HR: see Notes below Hydration State: see Notes below Anesthetic Complications: see Notes below Notes: In preop, patient was on levophed but with SBP in 110's. She was alert to self and knew she was in the hospital. Per , patient's mentation was much improved since her arrival this AM in the ER. She already had a left IJ central line placed in ER along with a peripheral IV. Given that she was found to be anemic in ER, she had already received 2 units of pRBC's. General anesthesia with arterial line placement was explained to patient and consent was signed ( signed given that patient did still demonstrate some mental status changes). She was taken in the OR and placed on STD ASA monitors. She was preoxygenated and induced without incident. Intubation was performed and ETT placement was confirmed. I then placed a right radial arterial line using ultrasound guidance. This was easily accomplished and arterial line secured in placed. Had excellent waveform. Patient had stable vital signs and CONSTRUCTION SAFETY CONSULTANT present with patient. I went to attend to another patient when I was called by OR staff requesting that I return to OR (see CONSTRUCTION SAFETY CONSULTANT note for details). I immediately returned to OR and patient was in asystolic arrest. See endoscopy note for details of procedure up to that point. CRP had been initiated and patient received 1mg epinephrine IV. After several rounds of CPR (lasting approximately 5 minutes), patient found to have a perfusing rhythm (as evidenced by arterial line waveform and reading, SpO2 reading and normal EtCO2 waveform and reading). Additional pRBC's had been ordered and she received additional 2 units of pRBC's in OR (second unit started prior to transfer to ICU). Endoscopist aborted procedure and ICU contacted to ensure patient had ventilator present. Report given to ICU attending and ICU nurse. She was transferred to ICU being ventilated with supplemental oxygen via ambubag and on monitor. ICU assumed care of patient.
[2021-08-24] MEDS ORDERED: VANCOMYCIN HCL 1,250 MG in SODIUM CHLORIDE 0.9% 500 ML IV ONE (17:00)
[2021-08-24] MEDS ORDERED: PANTOprazole 80 MG in DEXTROSE 5% 100 ML IV ONE (17:00)
[2021-08-24] MEDS ORDERED: FLUCONAZOLE 200 MG/100 ML BAG IV ONE (17:00)
--- NOTE | 2021-08-24 17:02 | XRay Report ---
XR chest 1V portable at 4:48 PM CLINICAL HISTORY: Post intubation and central line. COMPARISON STUDY: 08/24/2021 at 10:02 AM TECHNIQUE: 1 view of the chest FINDINGS: Single frontal view of the chest demonstrates the cardiomediastinal silhouette to be within normal li mits. Endotracheal tube has been placed with its tip at the level of the tana. Should be retracted at least 2 cm. NG tube is curled upon itself within the upper body of the stomach. The tip of the rig ht subclavian catheter is within the right atrium and most likely should be retracted. There has been interval development of central vascular congestion. There is also very mild peripher al interstitial edema. There is no evidence for pleural effusion. No confluent alveolar opacities are identified. There is no acute osseous pathology. IMPRESSION: 1. Tip of ET tube at the tana and should be retracted at least 2 cm. 2. Tip of right subclavian catheter within the right atrium and should be retracted as well. 3. Tip of NG tube is coronal within the upper body of the stomach. 4. Interval development of central vascular congestion and mild interstitial edema. ACT 112: Negative or not required by law. Electronically signed by: Francois Romano M.D. 08/24/2021 5:00 PM
[2021-08-24 17:09] LABS: iSTAT Arterial Blood Gas HCO3 14 meg/L (19-24); iSTAT Arterial Blood Gas pCO2 30 mmHg (35-46); iSTAT Arterial Blood Gas pH 7.28 (7.35-7.45); iSTAT Arterial Blood Gas pO2 85 mmHg (80-95); iSTAT Carbon Dioxide 15 mmol/L (24-31); iSTAT FiO2 50 %; iSTAT Site Art Line
[2021-08-24 17:10] LABS: Hematocrit (blood only) 37.2 % (37-47); Mean Corpuscular Hemoglobin 29.8 pg (25-34); Mean Corpuscular Hgb Conc 32.3 g/dL (32-36); Mean Corpuscular Volume 92.3 fL (80-100); Mean Platelet Volume 11.6 fL (7.4-10.4); Nucleated RBC # (auto) 0.04 K/uL (0-0); Nucleated RBC % (auto) 1.1 %; Platelet Count 122 K/uL (130-400); RDW Coefficient of Variation 18.9 % (11.5-14.5); RDW Standard Deviation 56.1 fL (36.4-46.3); Red Blood Count 4.03 M/uL (4.2-5.4); White Blood Count 3.17 K/uL (4.8-10.8)
[2021-08-24] MEDS ORDERED: PANTOprazole 40 MG in DEXTROSE 5% 100 ML IV SCH (17:15)
[2021-08-24] MEDS ORDERED: VANCOMYCIN HCL 1,250 MG in SODIUM CHLORIDE 0.9% 250 ML IV ONE (17:15)
[2021-08-24 17:21] LABS: INR 1.4 (0.9-1.1); Partial Thromboplastin Ratio 1.5; Partial Thromboplastin Time 39.8 Seconds (21.0-31.0); Prothrombin Time 13.8 Seconds (9.0-12.0)
[2021-08-24 17:22] LABS: Albumin Level 1.2 gm/dl (3.4-5.0); BUN Creatinine Ratio 13.5 (10-20); Calcium 7.5 mg/dl (8.5-10.1); Creatinine Clr Calc Pharmacy 35.2 ml/min; Est GFR (African American) 51.8 ml/min; Est GFR (Non-African American) 44.7 ml/min; Potassium 4.5 mmol/L (3.5-5.1)
[2021-08-24 17:30] LABS: Albumin Globulin Ratio 0.3 (0.9-2); Bilirubin,Total 1.6 mg/dl (0.2-1); Globulin 3.7 gm/dl (2.5-4.0); Total Protein 4.9 gm/dl (6.4-8.2)
[2021-08-24 17:44] LABS: Echinocytes 2+; Eosinophils # (auto) 0.05 K/uL (0-0.5); Eosinophils % (auto) 1.6 %; Immature Granulocytes # (auto) 0.03 K/uL (0.00-0.02); Immature Granulocytes % (auto) 0.9 %; Lymphocytes # (auto) 0.27 K/uL (1.2-3.4); Lymphocytes % (auto) 8.5 %; Neutrophils # (auto) 2.82 K/uL (1.4-6.5)
--- NOTE | 2021-08-24 18:33 | GI REPORT ---
Patient Name: Tammy Browne Procedure Date: 08/24/2021 2:47 PM Date of : 1950 Admit Type: Emergency Department Age: 71 Gender: Female Attending MD: Mis Ellison MD Procedure: Upper GI endoscopy Providers: Mis Ellison MD Referring MD: Ady Harden Indications: Abnormal CT of the GI tract Medicines: General Anesthesia Complications: Cardiopulmonary arrest Estimated Blood Loss: Estimated blood loss: none. Procedure: Pre-Anesthesia Assessment: - Prior to the procedure, a History and Physical was performed, and patient medications, allergies and sensitivities were reviewed. The patient's tolerance of previous anesthesia was reviewed. - The risks and benefits of the procedure and the sedation options and risks were discussed with the patient. All questions were answered and informed consent was obtained. - Patient identification and proposed procedure were verified prior to the procedure by the physician and the nurse. The procedure was verified in the procedure room. - Pre-procedure physical examination revealed no contraindications to sedation. After obtaining informed consent, the endoscope was passed under direct vision. Throughout the procedure, the patient's blood pressure, pulse, and oxygen saturations were monitored continuously. The Endoscope was introduced through the mouth, and advanced to the duodenum second part of duodenum. The upper GI endoscopy was accomplished without difficulty. The patient tolerated the procedure well. After obtaining informed consent, the endoscope was passed under direct vision. Throughout the procedure, the patient's blood pressure, pulse, and oxygen saturations were monitored continuously. Findings: Impression: - Prior Axios cholecystoduodenal stent remains intact with slight migration into the GB lumen. There is a surrounding liver abscess communicating with the gallbladder. This likely developed due to recurrent acute cholecystitis due to occlusion of the Axios stent lumen by the large gallstone. Patient developed immediate cardiac arrest after CO2 insufflation which likely caused a transient air embolism through the abscess into the liver parenchyma. Recommendation: - Transfer patient to [facility] for IR guided Percutaneous cholecystostomy. This will allow the abscess to heal. - Once the patient recovers will need EGD for removal of the Axios stent and placement of a double pigtail plastic stent. - IV Zosyn, Vancomycin and Fluconazole. - IV PPI. - Monitor H/H. - I spoke to the and updated him after the procedure. Mis Ellison MD 08/24/2021 6:33:00 PM This report has been signed electronically. Note Initiated On: 08/24/2021 2:47 PM Number of Addenda: 0 I attest to the content of the Intraoperative Record and orders documented therein, exceptions below {[id number]}
--- NOTE | 2021-08-24 18:37 | Gastroenterology Progress Note ---
Date of Service August 24, 2021 Assessment & Plan Admission and Anticipated Discharge Date Admission Date: August 24, 2021 Subjective Spoke to [facility] and patient is accepted to ICU there, IR informed and available. Results & Data ([facility]) Vital Signs (Past 12 Hours) Vital Signs Temp Pulse Pulse Resp BP BP Pulse Ox 08/24/21 17:16 22 08/24/21 17:12 36.7 C 75 113/71 100 08/24/21 17:00 36.7 C 78 18 104/67 100 08/24/21 16:59 36.7 C 76 24 103/66 100 08/24/21 16:46 36.7 C 75 18 120/74 99 08/24/21 16:28 71 08/24/21 16:05 73 20 100 08/24/21 14:44 36.7 C 78 24 96/64 L 100 08/24/21 14:30 36.5 C 66 20 112/71 97 08/24/21 14:14 36.4 C L 66 24 110/55 L 95 08/24/21 13:59 36.4 C L 67 24 105/65 94 08/24/21 13:41 36.4 C L 69 27 H 109/63 94 08/24/21 12:50 36.2 C L 69 19 106/74 08/24/21 12:20 35.5 C L 69 16 111/60 93 08/24/21 12:05 35.5 C L 69 16 107/65 95 08/24/21 11:42 34.5 C L 65 21 96 08/24/21 11:29 67 20 95/60 L 95 08/24/21 11:05 65 21 92/59 L 96 08/24/21 11:00 63 22 78/49 L 97 08/24/21 10:58 61 22 68/44 L 97 08/24/21 10:34 61 24 58/38 L 99 08/24/21 10:13 35.8 C L 08/24/21 10:08 55/35 L 08/24/21 09:21 60/38 L 08/24/21 09:11 94 08/24/21 08:56 36.4 C L 64 19 58/40 L 98
--- NOTE | 2021-08-24 18:38 | Communication Note ---
Date of Service: August 24, 2021 Pt with uneventful induction, intubation, arterial line insertion, and procedure start. During procedure, noted for loss of arterial line waveform, c onfirmed no issues with arterial line positioning that would lead to waveform change, noted for drop in etC02 reading upon completion of arterial line troubleshooting. Procedure stopped for pulse check. Upon establishing no evident pulse, database administration associate instructed to call for assistance, with compressions initiated. compressions rotated when additional help arrived, Epi 1 mg IV administered. Compressions continued, with additional blood ordered and initiated upon availability. Compressions stopped upon evidence of ROSC. Levophed gtt maintained, additional medications per anesthesia record. Plan of care coordinated with accepting ICU team. Pt transported intubated to ICU, critical but stable condition, with report to staff assuming care.
[2021-08-24 18:43] LABS: Troponin I 0.072 ng/ml (0-0.045)
[2021-08-24] MEDS ORDERED: PIPERACILLIN/TAZOBACTAM 3.375 GM in DEXTROSE 5% 100 ML IV SCH (20:00)
--- NOTE | 2021-08-24 20:38 | Discharge Summary ---
Date of Service August 24, 2021 Admission HPI Per Admitting Provider Tammy Browne is a 71yo female with multiple medical comorbidities, specifically HGN, HLP, RA on MTX and CAD. She was hospitalized at [facility] from 05/30/21 - 06/03/21 with hypotension and weakness. During that hospital stay she was found to have Covid-19 infection, also found to have severe iron deficiency with anemia as well as choledocholithiasis with presumed acute cholecystitis. Patient's Covid-19 was relatively mild. She required a small amount of supplemental O2. She was not treated with steroids. She was discharged home with supplemental O2. In regards to her anemia, she was transfused with 2 u PRBCs and was administered Venofer and folic acid. She had an EGD performed on 05/31/21 which was negative for acute UGIB. Her H/H responded appropriately. She had an ERCP performed on 05/31/[address] Ellison which revealed choledocholithiasis with a significant amount of pus. Many stones were removed and pus was swept from the duct. Patient had biliary sphincterotomy with successful placement of a 7cm plastic biliary stent into the CBD. Patient was referred to General Surgery for possible cholecystectomy. Patient was improving after her ERCP so cholecystectomy was deferred. Patient was di scharged home on Ciprofloxacin and Flagyl. Per - patient was evaluated outpatient and reported that she was not a candidate for cholecystectomy due to her underlying comorbidities. She is to followup with Dr. Ellison in October for placement of a new biliary stent. Patient was discharged home in stable condition on 06/03/21. Patient returns to [facility] today with complaint of weakness and fatigue with difficulty ambulating. She fell 3 days ago and struck her left face and shoulder. She states she did not lose consciousness. She has been having chills but denies fever, chest pain, cough, SOB. She denies abdominal pain, nausea, vomiting, diarrhea or constipation. Upon arrival to the ER patient hypothermic at 34.5 rectally and hypotensive at 58/40. She was administered 2L NSS IV bolus with minimal response in blood pressure. She had a right IJ CVC placed by the ER and was started on norepinephrine for blood pressure support at 0.2mcg/kg/min. She was transfused 2u warmed PRBCs and had a warming blanket placed. Initial laboratory workup revealed macrocytic anemia with Hgb=7.4 and Hct=25 (down from 10.3 and 33, respectively, on 06/22/21) Elevated lactate of 7.6 RHIANNON with Cr=1.5 CT of the Abdomen revealed cholelithiasis with pericholecystic infiltration as well as a disrupted gallbladder wall with a 2.7 x 2.6cm fluid and gas containing hepatic collection suggestive of a hepatic abscess. Findings suggested of a perforated acute cholecystitis. Mild dilatation fo the CBD again noted with mild wall thickening of the CBD. Case was discussed with Dr. Ellison and decision was made to take the patient to the OR for EGD to clear the lumen of the gallbladder, lithotripsy and stent placement. In the OR patient received premedication for contrast allergy. She briefly lost her pulse after administration of contrast. A Code Blue was called and CPR was initiated. Patient was administered epi x 1 with ROSC. She was then transferred to the MICU for ongoing management. Plan to transfer to [facility] for IR guided drainage and possible embolization of bleeding liver parenchymal abscess. ER Course: CVC placement Cefepime D50 x 1 amp 2u PRBCs Levophed NSS x 2L Heme negative stools Principal Diagnosis Hepatic abscess Discharge Exam Patient evaluated prior to transfer to OR General: patient ill in appearance, NAD, answering questions appropriately and following commands Skin: warm, dry, intact, bruising over left eye and left shoulder, no rashes HEENT: Bruising present over left eye, PERRL, EOMI, anicteric sclera, conjunctiva without injection, external ear normal to inspection and nontender, nares patent, dry mucus membranes, dentition intact, no oropharyngeal lesions, neck supple, trachea midline, no LAD, no thyromegaly, no JVD Heart: +S1/S2, regular, no m/r/g Lungs: equal air entry bilaterally, no rales/rhonchi/wheezes Abd: +BS, soft, NT/ND, no masses/organomegaly/ascites, no RUQ pain, negative Flores's Ext: warm, 2+ pulses in UE/LE bilaterally, no clubbing/cyanosis or edema Neuro: nonfocal, patient AA&O x 4, speech intact, no facial droop, moving all extremities on command with equal strength 5/5 Discharge Exam: Patient intubated, sedated, NGT in place Squeezing hand to command Remainder of exam unchanged Discharge Data Allergies Allergy/AdvReac Type Severity Reaction Status Date / Time bacitracin Allergy Intermediate Hives, Verified 08/24/21 12:09 blisters clavulanic acid Allergy Intermediate Hives Verified 08/24/21 12:09 diphenhydramine Allergy Intermediate Hives Verified 08/24/21 12:09 iodine Allergy Intermediate Hives Verified 08/24/21 12:09 ketorolac Allergy Intermediate Hives Verified 08/24/21 12:09 meclofenamic acid Allergy Intermediate Hives Verified 08/24/21 12:09 neomycin Allergy Intermediate Hives, Verified 08/24/21 12:09 blisters NSAIDS (Non-Steroidal Allergy Intermediate Hives Verified 08/24/21 12:09 Anti-Inflamma (tolerates Celebrex) oxycodone Allergy Intermediate Hives Verified 08/24/21 12:09 (tolerates Vicodin) polymyxin B Allergy Intermediate Hives, Verified 08/24/21 12:09 blisters quinine Allergy Intermediate Hives Verified 08/24/21 12:09 Sulfa (Sulfonamide Allergy Intermediate Hives Verified 08/24/21 12:09 Antibiotics) tramadol Allergy Intermediate Hives, Verified 08/24/21 12:09 itching adhesive Allergy Mild Rash Verified 08/24/21 12:09 latex Allergy Mild Rash Verified 08/24/21 12:09 povidone-iodine Allergy Mild Rash Verified 08/24/21 12:09 doxycycline Allergy Anaphylaxis Unverified 08/24/21 12:09 meperidine AdvReac Intermediate N/V Verified 08/24/21 12:09 prednisone AdvReac Intermediate Made Verified 08/24/21 12:09 "bones soft" aspirin AdvReac Mild N/V Verified 08/24/21 12:09 Consultations 08/24/21 14:18 Consult Gastroenterology Routine 08/24/21 16:28 Consult [employer] Routine Procedures Performed Operation Date: 08/24/21 08:20 Actual Procedures p Endoscopic Retrograde Cholangiopancreatogram(Not Applicable) - Mis Ellison MD Ordered Studies 08/24/21 10:18 CT abd pelvis IV con only Stat CT chest diagnostic w con Stat CT head/brain wo con Stat 08/24/21 14:27 [place] ERCP biliary ductal Routine Hospital Course (1) Cholecystitis with perforation of gallbladder: 71yo female with multiple medical comorbidities presenting with weakness, fatigue and hypotension. Found to have perforation of gallbladder as well as hepatic abscess. Patient went to the OR for ERCP for lithotripsy, stent manipulation. She sustained a brief cardiac arrest after administration of contrast dye with ROSC achieved after 1 round of epi. Presently intubated, sedated in MICU Plans for transfer to tertiary care facility for embolization of liver abscess. -GI and MICU teams appreciated -Maintain in MICU -Follow cultures sent from ER -Vancomycin, Zosyn, Diflucan for broad antibiotic coverage -Hold methotrexate Patient presently intubated and sedated, (2) Acute hypotension: Most likely secondary to underlying infection, septic shock, blood loss. Patient presently on Levophed as well as epi. Blood pressure appropriate. -Continue pressors, goal MAP 65 -transfusion support as below (3) Hypoglycemia: Most likely secondary to underlying infection, sepsis. Improved with D50 administration -Monitor blood sugar (4) Iron deficiency anemia: ANNITA with acute blood loss anemia as well -Patient has received 4u PRBCs thus far -Continue to monitior -Transfuse for ongoing blood loss, symptomatic anemia or Hgb<7 (5) Acute blood loss anemia: As above. -Continue transfusion support -Montior CBC -Plans to transfer to tertiary care facility for IR embolization of hepatic lesion (6) Ischemic cardiomyopathy: Patient does not appear to be in acute exacerbation -Holding Metoprolol for now in setting of hypotension (7) Coronary artery disease: Patient with underlying CAD. She had a dobutamine stress echo performed 02/08/21 which showed normal RV size and function. Mild concentric LVH. Mildly reduced EF of 40-45% with severe hypokinesis/akinesis of the basal and mid anteroseptum and mid and distal septum. Severe hypokinesis noted at peak stress. She follows with Cardiology. Cardiac cath performed 02/22/21 which revealed LAD ostial/proximal with 100% occlusion. LAD fills with left to left and right to left collaterals. Mid circumflex with 40-50% stenosis. Large, dominant RCA with no occlusion. No acute EKG changes on arrival. -Hold ASA for now -Hold Atorvastatin -Hold Metoprolol (8) Rheumatoid arthritis: Chronic -Holding MTX in setting of presumed infection/sepsis (9) Hyperlipidemia: Chronic -Holding Atorvastatin (10) Hypothyroidism: Chronic. TSH is normal at 0.446 -Continue Synthroid (11) GERD (gastroesophageal reflux disease): Chronic -Protonix bolus and gtt Patient has been accepted to [facility] She is to be transferred via helicopter Plan discussed with patient's at bedside Total Time Total Time Spent Total Time Spent (In Minutes): 30 Discharge Plan Discharge Items Patient Disposition: Transfer Acute Care Hospital Reason For Visit: HEPTIC ABSCESS Discharge Diagnosis: Hepatic abscess Condition on Discharge: [facility] Concerns: Patient on levophed drip presently for blood pressure support Activity: As commented below Activity Comment: Further activity instructions will be provided to you upon discharge Non-emergency contact: Primary Care Provider Call non-emergency contact if: your symptoms worsen Follow-up/Referrals: Tayla Kent DO [Primary Care Provider] - Diet: Nothing by Mouth and Other - See Diet Comment Diet Comment: Further instructions will be provided by [facility] upon discharge Pending Studies at Discharge: No Stand-Alone Forms: My [employer] Skilled Items Patient informed of condition?: Yes DNR: No Discharge Level of Care: Other Communicable Disease: No Discharge Prognosis: Stable Lines: [facility] Urinary Catheter: Yes Medications and DC Order Prescriptions: Discontinued magnesium oxide 400 mg (241.3 mg magnesium) tablet 400 mg PO BID RF: 0 nortriptyline 10 mg capsule 10 mg PO QAM Qty: 90 RF: 1 levothyroxine 75 mcg tablet 75 mcg PO QAM Qty: 90 RF: 1 montelukast [Singulair] 10 mg tablet 10 mg PO QPM Qty: 90 RF: 1 atorvastatin 40 mg tablet 40 mg PO DAILY Qty: 90 RF: 3 nortriptyline 25 mg capsule 25 mg PO HS Qty: 90 RF: 3 lansoprazole 15 mg capsule,delayed release(DR/EC) 15 mg PO QAM Qty: 90 RF: 1 escitalopram oxalate [Lexapro] 20 mg tablet 20 mg PO QAM Qty: 90 RF: 1 zoledronic [id number] 5 mg/100 mL piggyback 5 mg/kg IV YEARLY RF: 0 docusate sodium 100 mg Capsule 100 mg PO BID PRN (Reason: Constipation) RF: 0 nitroglycerin [Nitrostat] 0.4 mg Tablet, Sublingual 0.4 mg sublingual Q5M PRN (Reason: chest pain) Qty: 25 RF: 3 aspirin 81 mg Tablet,Delayed Release (Dr/Ec) 81 mg PO DAILY RF: 0 celecoxib 200 mg capsule 200 mg PO BID RF: 0 valacyclovir 1 gram tablet 2,000 mg PO DAILY PRN (Reason: Cold Sores) RF: 0 calcium carbonate-vitamin D3 [Calcium + D] 600 mg-5 mcg (200 unit) Tablet 1 tab PO BID RF: 0 methotrexate sodium 2.5 mg tablet 20 mg PO WK RF: 0 folic acid 1 mg tablet 1 mg PO DAILY RF: 0 ondansetron 4 mg tablet,disintegrating 4 mg translingual Q12 PRN (Reason: Nausea) RF: 0 metoprolol succinate 100 mg tablet extended release 24 hr 150 mg PO QAM RF: 0 Discharge Orders: Discharge Order (Routine); Ordered 08/24/21 Ordered By: Sierra Ireland Admission Data Admit Date/Time: 08/24/21 14:18 Attending Provider: Sierra Ireland Admit Provider: Sierra Ireland Primary Care Provider: Tayla Kent. Other Providers: Mis Ellison ; Yuniel Echeverria Coding Level of Care Code D/C DAY MANAGEMENT <30 MINS Diagnoses Cholecystitis with perforation of gallbladder K82.A2 Acute hypotension I95.9 Hypoglycemia E16.2 Iron deficiency anemia D50.9 Acute blood loss anemia D62 Ischemic cardiomyopathy I25.5 Coronary artery disease I25.10 Rheumatoid arthritis M06.9 Hyperlipidemia E78.5 Hypothyroidism E03.9 GERD (gastroesophageal reflux disease) K21.9
[2021-08-24] MEDS ORDERED: NORTRIPTYLINE HCL 25 MG CAP PO SCH (21:00)
[2021-08-25] MEDS ORDERED: LEVOTHYROXINE SODIUM 75 MCG TABLET PO SCH (06:30)
[2021-08-25] MEDS ORDERED: ESCITALOPRAM OXALATE 20 MG TAB PO SCH (09:00)
[2021-08-25] MEDS ORDERED: NORTRIPTYLINE HCL 10 MG CAP PO SCH (09:00)
[2021-08-25] MEDS ORDERED: FLUCONAZOLE 100 MG/50 ML BAG IV SCH (09:00)
[2021-08-25] MEDS ORDERED: ASPIRIN 81 MG ECTAB PO SCH ×2 (09:00)
[2021-08-25] MEDS ORDERED: PANTOprazole 40 MG TAB PO SCH (09:00)
[2021-08-26] MEDS ORDERED: metHOTREXate sodium 2.5 MG TAB PO SCH (09:00)
== END 2021-08-24 20:15 | disposition short-term general hospital (02) | DRG 871 ==
LOC: ED 08:51 → 1E 14:36 → OR 14:47 → 1E 14:48

== ENCOUNTER 2021-10-17 10:16 | Inpatient (IN) ==
[2021-10-17] MEDS ORDERED: SODIUM CHLORIDE 0.9% 1000ML 1,000 ML IV ONE ×2 (10:35→11:47)
--- NOTE | 2021-10-17 10:44 | Emergency Department Note ---
Impression & Plan Acute hypotension, Weakness, Urinary tract infection, Head injury, Hypomagnesemia ED Provider Note NAME: CANDELARIO MOBLEY AGE: 71 SEX: F : 1950 ARRIVES VIA: Walk-In INFORMANT: Patient, patient's significant other ED PROVIDER(S): Ghassan Fuentes DO CHIEF COMPLAINT: Low blood pressure HPI: The patient is a 71-year-old female who presented to the emergency department for an evaluation of low blood pressure. The patient states that she has been noticing low blood pressure over the last few days. She called her primary care physician and was sent to the emergency department for further evaluation. The patient states that she has a history of an infected gallbladder which led to sepsis at the end of last year. The patient required interventional radiology and was able to be discharged to home after a long stay in a group home. She states that she was contacted last week but she is unsure who contacted her to tell her that some of her blood cultures were still positive and she needed IV antibiotics. She is not been IV antibiotics for many weeks. She did go home on IV antibiotics after her admission to [facility] [address]. She denies having any fever. She denies having any coughing. She denies having any abdominal pain. She denies have any dysuria or frequency. She states that she is been very weak and dizzy upon standing and is fallen twice. She did strike her head recently. She denies having any headache or neck pain at this time. She denies having any rashes or lower extremity swel ling or pain. ROS: See above HPI for pertinent positives & negatives. A total of 10 systems reviewed and were otherwise negative. PAST MEDICAL HISTORY: See Below PAST SURGICAL HISTORY: See Below FAMILY HISTORY: See Below SOCIAL HISTORY: See Below HOME MEDICATIONS: See Below ALLERGIES: See Below VITALS: See Below PHYSICAL EXAMINATION: GENERAL: Patient is awake alert in no acute distress patient is resting comfortably and showing no signs of anxiety EYES: The conjunctivae are clear. The pupils are round and reactive. EARS, NOSE, MOUTH AND THROAT: The nose is without any evidence of any deformity. NECK: The neck is nontender and supple. RESPIRATORY: Normal respiratory effort is noted there is no evidence of wheezing rhonchi or rales CARDIOVASCULAR: Heart sounds were distant. Regular rate and rhythm was noted to auscultation. There is no definite murmur. GASTROINTESTINAL: The abdomen is soft. Abdomen is nontender. MUSCULOSKELETAL/EXTREMITIES: There is no evidence of gross deformity full range of motion is noted in the hips and shoulders. SKIN: There is no obvious evidence of any rash. There are no petechiae, pallor or cyanosis noted. NEUROLOGIC: Patient is awake alert and oriented x3. Strength was diminished but symmetric. MEDICAL DECISION MAKING: The patient is a 71-year-old female who presented to emergency department for an evaluation of low blood pressure. The patient has a history of bacteremia. She has a history of having gallbladder pathology and was transferred to [facility] at the end of last year for the symptoms. The patient presented to the emergency department at the request of her primary care physician for low blood pressure. The patient was treated with IV fluids and IV antibiotics in the emergency department. I discussed the patient's laboratory and radiographic studies with her. She has had weakness and fallen and struck her head. She had a CT abdomen pelvis which does not show any acute pathology that could be causing the patient's infectious symptoms at this time. Urinalysis does appear to be consistent with infection. It is possible this is the cause of her symptoms. IV antibiotics were chosen in conjunction with the patient's most recent urine culture. The patient was reevaluated multiple times. She appears very comfortable. I discussed her case with the [facility] hospitalist group. They have agreed to evaluate the patient in the emergency department for further management and disposition. Triage Nursing notes reviewed. Prior medical records reviewed Vital Signs: reviewed and remarkable for low blood pressure. Differential diagnosis: Infection, dehydration, metabolic abnormality, hypo/hyperglycemia, electrolyte disturbance, anemia, hypoxia, cardiac sources, intracerebral event, toxicologic, neurologic, as well as other pathologies. ER treatment provided: See below Diagnostics interpreted by me: ECG: EKG was obtained in the emergency department. My interpretation is normal sinus rhythm at 61 bpm. Left bundle branch block pattern was favored. Nonspecific T wave abnormalities were noted. Poor R wave progression was noted. This was compared to a tracing from August 24, 2021. No changes were noted. Cardiac Monitoring: An order was placed for continuous cardiac monitoring. The monitor shows a rate of 60 bpm with sinus rhythm. Laboratory studies: As stated above and show below. Imaging studies: See below Consultation(s): I discussed this case with Ene who is covering for the [facility] hospitalist group. Past Med/Surg History Medical History Allergic rhinitis Anemia Anxiety and depression Asthma Coronary artery disease Cardiac catheterization -02/22/2021:Impression: 1. Severe CAD involving ostial/proximal LAD (100%), filling via left to left and right to left collaterals. 2. Otherwise nonobstructive CAD involving the mid circumflex. 3. No aortic stenosis. 4. Normal left-sided filling pressure. Gallstone GERD (gastroesophageal reflux disease) History of COVID-19 DX 05/2021 (NO SYMPTOMS>PT STATES WAS A FALSE POSITIVE) History of right breast cancer s/p lumpectomy (1969)- no chemo or xrt Hx of fracture Right shoulder AC joint fracture (10/2020) due to traumatic event > healing without surgical intervention Hyperlipidemia Hypertension Hypothyroidism IBS (irritable bowel syndrome) Insomnia Ischemic cardiomyopathy Lumbar facet joint syndrome Lumbar spinal stenosis Rheumatoid arthritis On Methotrexate Sacroiliitis Steroid-induced osteoporosis Surgical History H/O arthroscopy of shoulder L shoulder H/O cataract extraction R/L eye History of arthroscopy of left knee History of breast biopsy History of cardiac cath NO History of ERCP WITH STENT (NOT PRESENT) History of foot surgery R/L History of lumpectomy of right breast History of right knee joint replacement History of tonsillectomy History of total abdominal hysterectomy and bilateral salpingo-oophorectomy d/t endometriosis Nausea and vomiting after administration of anesthetic agent S/P ORIF (open reduction internal fixation) fracture Left ankle S/p reverse total shoulder arthroplasty Left reverse TSA (02/26/19): Grade view 2, MAC#3, ETT 7 + PNB at [facility] (scope patch used) Family History Grandmother (Paternal) Family history of diabetes mellitus Grandmother (Maternal) Family history of diabetes mellitus Father Coronary heart disease Alzheimer disease Myocardial infarction Osteoarthritis COPD (chronic obstructive pulmonary disease) Lung disease Mother Myocardial infarction COPD (chronic obstructive pulmonary disease) Other No family history of adverse response to anesthesia Denies family history of Ovarian cancer Prostate cancer Breast cancer Colorectal cancer Social History Smoking Status: Never smoker Second Hand Exposure: No; Hx Alcohol Use: No Preferred Language: Tongan Communication Ability: Effective Visual Impairment: Limited Hearing Ability: Normal Ship'S Engineer Required: No Beliefs That Will Affect Care: None marital status: Current Living Situation: Family Current Living Situation Comment: AND SON/GRANDAUGHTER current occupational status: retired How many Children do You have: 2 Feels Safe at Home: Yes Childhood Exposure to Second-Hand Smoke: Yes caffeine: Yes (coffee) during the past year weight has: remained stable Dental Care, Regularly: No Physical Activity Frequency: Daily Physical Activity Frequency Comment: chores Seatbelt Use: always Sunscreen Use: No Assistive Devices: Denture - Upper, Denture - Lower, Glasses, Walker and Wheelchair Allergies Allergies Allergy/AdvReac Type Severity Reaction Status Date / Time bacitracin Allergy Intermediate Hives, Verified 10/09/21 13:26 blisters clavulanic acid Allergy Intermediate Hives Verified 10/09/21 13:26 diphenhydramine Allergy Intermediate Hives Verified 10/09/21 13:26 iodine Allergy Intermediate Hives Verified 10/09/21 13:26 ketorolac Allergy Intermediate Hives Verified 10/09/21 13:26 meclofenamic acid Allergy Intermediate Hives Verified 10/09/21 13:26 neomycin Allergy Intermediate Hives, Verified 10/09/21 13:26 blisters NSAIDS (Non-Steroidal Allergy Intermediate Hives Verified 10/09/21 13:26 Anti-Inflamma (tolerates Celebrex) oxycodone Allergy Intermediate Hives Verified 10/09/21 13:26 (tolerates Vicodin) polymyxin B Allergy Intermediate Hives, Verified 10/09/21 13:26 blisters quinine Allergy Intermediate Hives Verified 10/05/21 14:13 Sulfa (Sulfonamide Allergy Intermediate Hives Verified 10/05/21 14:13 Antibiotics) tramadol Allergy Intermediate Hives, Verified 10/05/21 14:13 itching adhesive Allergy Mild Rash Verified 10/05/21 14:13 latex Allergy Mild Rash Verified 10/05/21 14:13 povidone-iodine Allergy Mild Rash Verified 10/05/21 14:13 doxycycline Allergy Anaphylaxis Unverified 10/05/21 14:13 meperidine AdvReac Intermediate N/V Verified 10/05/21 14:13 prednisone AdvReac Intermediate Made Verified 10/05/21 14:13 "bones soft" aspirin AdvReac Mild N/V Verified 10/05/21 14:13 Home Meds Home Medications Medication Instructions Recorded Confirmed magnesium oxide 400 mg (241.3 mg 400 mg PO BID tab 05/26/18 10/09/21 magnesium) tablet docusate sodium 100 mg capsule 100 mg PO BID PRN 02/26/19 10/09/21 zoledronic acid 5 mg/100 mL in 5 mg/kg IV YEARLY ml 03/02/19 10/09/21 mannitol 5 %-water intravenous piggybck aspirin 81 mg tablet,delayed 81 mg PO QAM 05/30/21 10/09/21 release calcium carbonate 600 mg-vitamin 1 tab PO BID 08/24/21 10/09/21 D3 5 mcg (200 unit) tablet celecoxib 200 mg capsule 200 mg PO BID 08/24/21 10/09/21 folic acid 1 mg tablet 1 mg PO DAILY 08/24/21 10/09/21 methotrexate sodium 2.5 mg tablet 20 mg PO WK 08/24/21 10/09/21 metoprolol succinate 100 mg 150 mg PO QAM 08/24/21 10/09/21 tablet,extended release 24 hr ondansetron 4 mg disintegrating 4 mg TRANSLINGUAL Q12 PRN 08/24/21 10/09/21 tablet valacyclovir 1 gram tablet 2,000 mg PO DAILY PRN 08/24/21 10/09/21 atorvastatin 40 mg tablet 40 mg PO QAM 10/05/21 10/09/21 oxycodone 5 mg tablet 5 mg PO Q6H PRN 10/05/21 10/09/21 Previous Rx's Medication Instructions Recorded nitroglycerin 0.4 mg sublingual 0.4 mg SUBLINGUAL Q5M PRN #25 tab 02/22/21 tablet (Nitrostat) nortriptyline 10 mg capsule 10 mg PO QAM #90 cap 02/27/21 levothyroxine 75 mcg tablet 75 mcg PO QAM #90 tab 03/15/21 Singulair 10 mg tablet 10 mg PO QPM #90 tab NS 04/17/21 (montelukast) nortriptyline 25 mg capsule 25 mg PO HS #90 cap 06/08/21 lansoprazole 15 mg capsule,delayed 15 mg PO QAM #90 cap 06/19/21 release escitalopram oxalate 20 mg tablet 20 mg PO QAM #90 tab 07/23/21 (Lexapro) Results & Data (ED) Vital Signs Vital Signs - 24 hr 10/17/21 10:16 10/17/21 10:22 10/17/21 10:35 Temperature 36.5 C Temperature Source Temporal Artery Scan Pulse Rate 92 H Pulse Rate [Apical] 63 Respiratory Rate 18 16 Respiratory Effort / Characteristics Non-Labored Spontaneous Respiratory Depth Normal Blood Pressure 88/63 L Blood Pressure [Left Arm] 95/52 L Blood Pressure Mean 71 Blood Pressure Mean [Left Arm] 66 Pulse Oximetry 96 96 Oxygen Delivery Method Room Air Room Air Room Air Sepsis Recent Fever Within 48 Hours No Sepsis New/Unexplained Change in Mental Status N/A Sepsis Action Taken by Nursing No Action Required 10/17/21 11:05 10/17/21 11:30 10/17/21 11:35 Temperature Temperature Source Pulse Rate Pulse Rate [Apical] 62 Respiratory Rate 19 Respiratory Effort / Characteristics Non-Labored Spontaneous Non-Labored Spontaneous Non-Labored Spontaneous Respiratory Depth Normal Blood Pressure Blood Pressure [Left Arm] 92/56 L Blood Pressure Mean Blood Pressure Mean [Left Arm] 68 Pulse Oximetry 98 Oxygen Delivery Method Room Air Sepsis Recent Fever Within 48 Hours Sepsis New/Unexplained Change in Mental Status Sepsis Action Taken by Nursing 10/17/21 12:00 10/17/21 12:15 Temperature Temperature Source Pulse Rate Pulse Rate [Apical] 60 Respiratory Rate 22 Respiratory Effort / Characteristics Non-Labored Spontaneous Non-Labored Spontaneous Respiratory Depth Normal Blood Pressure Blood Pressure [Left Arm] 90/70 L Blood Pressure Mean Blood Pressure Mean [Left Arm] 76 Pulse Oximetry 98 Oxygen Delivery Method Room Air Sepsis Recent Fever Within 48 Hours Sepsis New/Unexplained Change in Mental Status Sepsis Action Taken by Alf Medications Current Medication List: was personally reviewed by me Laboratory Data Attestation: I reviewed the patient's lab results. Result diagrams: 10/17/21 11:04 10/17/21 11:04 Lab Results 10/17/21 10/17/21 10/17/21 Range/Units 11:04 11:04 11:04 WBC 7.17 (4.8-10.8) K/uL RBC 3.46 L (4.2-5.4) M/uL Hgb 11.3 L (12.0-16.0) g/dL Hct 36.9 L (37-47) % MCV 106.6 H (80-100) fL MCH 32.7 (25-34) pg MCHC 30.6 L (32-36) g/dL RDW Std Deviation 76.8 H (36.4-46.3) fL RDW Coeff of Ender 19.6 H (11.5-14.5) % Plt Count 293 (130-400) K/uL MPV 10.3 (7.4-10.4) fL Immature Gran % (Auto) 0.1 % Neut % (Auto) 63.2 % Lymph % (Auto) 25.9 % Wise % (Auto) 4.6 % Eos % (Auto) 5.9 % Baso % (Auto) 0.3 % Neut # (Auto) 4.53 (1.4-6.5) K/uL Lymph # (Auto) 1.86 (1.2-3.4) K/uL Wise # (Auto) 0.33 (0.11-0.59) K/uL Eos # (Auto) 0.42 (0-0.5) K/uL Baso # (Auto) 0.02 (0-0.2) K/uL Immature Gran # (Auto) 0.01 (0.00-0.02) K/uL ESR 52 H (0-30) mm/hr PT 11.5 (9.0-12.0) Seconds INR 1.1 (0.9-1.1) APTT 32.6 H (21.0-31.0) Seconds PTT Ratio 1.2 Sodium (136-145) mmol/L Potassium (3.5-5.1) mmol/L Chloride (98-107) mmol/L Carbon Dioxide (21-32) mmol/L Anion Gap (3-11) BUN (6-23) mg/dl Creatinine (0.6-1.2) mg/dl Est Cr Clr Drug Dosing ml/min Est GFR ( Amer) ml/min Est GFR (Non-Af Amer) ml/min BUN/Creatinine Ratio (10-20) Glucose (70-99(Fasting)) mg/dl Lactate (0.4-2.0) mmol/L Calcium (8.5-10.1) mg/dl Magnesium (1.7-2.4) mg/dl Total Bilirubin (0.2-1.0) mg/dl AST (13-39) U/L ALT (7-52) U/L Alkaline Phosphatase (34-104) U/L C-Reactive Protein (0-0.5) mg/dl Total Protein (6.0-8.3) gm/dl Albumin (3.4-5.0) gm/dl Globulin (2.5-4.0) gm/dl Albumin/Globulin Ratio (0.9-2) TSH (0.300-4.500) uIu/ml Free T4 (0.61-1.60) ng/dl Urine Color Urine Appearance (Clear) Urine pH (4.5-7.5) Ur Specific Duck (1.000-1.030) Urine Protein (Negative) Urine Glucose (UA) (Negative) Urine Ketones (Negative) Urine Blood (Negative) Urine Nitrite (Negative) Urine Bilirubin (Negative) Urine Urobilinogen (Negative) Ur Leukocyte Esterase (Negative) Urine RBC (0-4) /hpf Urine WBC (0-5) /hpf Ur Epithelial Cells (0-5) /lpf Urine Bacteria (Negative) Urine Yeast (None Prsent) SARS-CoV-2, RNA, NAAT (NEGATIVE) 10/17/21 10/17/21 10/17/21 Range/Units 11:04 11:04 11:04 WBC (4.8-10.8) K/uL RBC (4.2-5.4) M/uL Hgb (12.0-16.0) g/dL Hct (37-47) % MCV (80-100) fL MCH (25-34) pg MCHC (32-36) g/dL RDW Std Deviation (36.4-46.3) fL RDW Coeff of Ender (11.5-14.5) % Plt Count (130-400) K/uL MPV (7.4-10.4) fL Immature Gran % (Auto) % Neut % (Auto) % Lymph % (Auto) % Wise % (Auto) % Eos % (Auto) % Baso % (Auto) % Neut # (Auto) (1.4-6.5) K/uL Lymph # (Auto) (1.2-3.4) K/uL Wise # (Auto) (0.11-0.59) K/uL Eos # (Auto) (0-0.5) K/uL Baso # (Auto) (0-0.2) K/uL Immature Gran # (Auto) (0.00-0.02) K/uL ESR (0-30) mm/hr PT (9.0-12.0) Seconds INR (0.9-1.1) APTT (21.0-31.0) Seconds PTT Ratio Sodium 135 L (136-145) mmol/L Potassium 4.2 (3.5-5.1) mmol/L Chloride 106 (98-107) mmol/L Carbon Dioxide 25 (21-32) mmol/L Anion Gap 4 (3-11) BUN 9 (6-23) mg/dl Creatinine 0.58 L (0.6-1.2) mg/dl Est Cr Clr Drug Dosing 66.4 ml/min Est GFR ( Amer) 109.0 ml/min Est GFR (Non-Af Amer) 94.0 ml/min BUN/Creatinine Ratio 15.5 (10-20) Glucose 77 (70-99(Fasting)) mg/dl Lactate 2.2 H* (0.4-2.0) mmol/L Calcium 8.2 L (8.5-10.1) mg/dl Magnesium 1.4 L (1.7-2.4) mg/dl Total Bilirubin 0.6 (0.2-1.0) mg/dl AST 32 (13-39) U/L ALT 17 (7-52) U/L Alkaline Phosphatase 214 H (34-104) U/L C-Reactive Protein 2.17 H (0-0.5) mg/dl Total Protein 6.1 (6.0-8.3) gm/dl Albumin 2.3 L (3.4-5.0) gm/dl Globulin 3.8 (2.5-4.0) gm/dl Albumin/Globulin Ratio 0.6 L (0.9-2) TSH 10.180 H (0.300-4.500) uIu/ml Free T4 0.99 (0.61-1.60) ng/dl Urine Color Urine Appearance (Clear) Urine pH (4.5-7.5) Ur Specific Duck (1.000-1.030) Urine Protein (Negative) Urine Glucose (UA) (Negative) Urine Ketones (Negative) Urine Blood (Negative) Urine Nitrite (Negative) Urine Bilirubin (Negative) Urine Urobilinogen (Negative) Ur Leukocyte Esterase (Negative) Urine RBC (0-4) /hpf Urine WBC (0-5) /hpf Ur Epithelial Cells (0-5) /lpf Urine Bacteria (Negative) Urine Yeast (None Prsent) SARS-CoV-2, RNA, NAAT (NEGATIVE) 10/17/21 10/17/21 10/17/21 Range/Units 11:04 13:00 13:04 WBC (4.8-10.8) K/uL RBC (4.2-5.4) M/uL Hgb (12.0-16.0) g/dL Hct (37-47) % MCV (80-100) fL MCH (25-34) pg MCHC (32-36) g/dL RDW Std Deviation (36.4-46.3) fL RDW Coeff of Ender (11.5-14.5) % Plt Count (130-400) K/uL MPV (7.4-10.4) fL Immature Gran % (Auto) % Neut % (Auto) % Lymph % (Auto) % Wise % (Auto) % Eos % (Auto) % Baso % (Auto) % Neut # (Auto) (1.4-6.5) K/uL Lymph # (Auto) (1.2-3.4) K/uL Wise # (Auto) (0.11-0.59) K/uL Eos # (Auto) (0-0.5) K/uL Baso # (Auto) (0-0.2) K/uL Immature Gran # (Auto) (0.00-0.02) K/uL ESR (0-30) mm/hr PT (9.0-12.0) Seconds INR (0.9-1.1) APTT (21.0-31.0) Seconds PTT Ratio Sodium (136-145) mmol/L Potassium (3.5-5.1) mmol/L Chloride (98-107) mmol/L Carbon Dioxide (21-32) mmol/L Anion Gap (3-11) BUN (6-23) mg/dl Creatinine (0.6-1.2) mg/dl Est Cr Clr Drug Dosing ml/min Est GFR ( Amer) ml/min Est GFR (Non-Af Amer) ml/min BUN/Creatinine Ratio (10-20) Glucose (70-99(Fasting)) mg/dl Lactate 1.9 (0.4-2.0) mmol/L Calcium (8.5-10.1) mg/dl Magnesium (1.7-2.4) mg/dl Total Bilirubin (0.2-1.0) mg/dl AST (13-39) U/L ALT (7-52) U/L Alkaline Phosphatase (34-104) U/L C-Reactive Protein (0-0.5) mg/dl Total Protein (6.0-8.3) gm/dl Albumin (3.4-5.0) gm/dl Globulin (2.5-4.0) gm/dl Albumin/Globulin Ratio (0.9-2) TSH (0.300-4.500) uIu/ml Free T4 (0.61-1.60) ng/dl Urine Color Yellow Urine Appearance Clear (Clear) Urine pH 7.0 (4.5-7.5) Ur Specific Duck 1.015 (1.000-1.030) Urine Protein Negative (Negative) Urine Glucose (UA) Negative (Negative) Urine Ketones Negative (Negative) Urine Blood Trace-intact H (Negative) Urine Nitrite Negative (Negative) Urine Bilirubin Negative (Negative) Urine Urobilinogen Negative (Negative) Ur Leukocyte Esterase 2+ H (Negative) Urine RBC 0-4 (0-4) /hpf Urine WBC 5-10 H (0-5) /hpf Ur Epithelial Cells 0-5 (0-5) /lpf Urine Bacteria 3+ H (Negative) Urine Yeast Budding A (None Prsent) SARS-CoV-2, RNA, NAAT NEGATIVE (NEGATIVE) Administered Medications Magnesium Sulfate/Dextrose (Magnesium Sulfate / D5w) 1 gm in 100 mls @ 100 mls/hr IV Q1H SIDDHARTHA Stop: 10/17/21 15:24 Last Admin: 10/17/21 13:40 Dose: 100 mls/hr Documented by: [id number] Discontinued Medications Sodium Chloride (Nss 1000ml) 1,000 mls @ 999 mls/hr IV .Q1H1M ONE Stop: 10/17/21 11:35 Last Infusion: 10/17/21 12:37 Dose: 0 mls/hr Documented by: [id number] Admin: 10/17/21 11:33 Dose: 999 mls/hr Documented by: [id number] Sodium Chloride (Nss 1000ml) 1,000 mls @ 999 mls/hr IV .Q1H1M ONE Stop: 10/17/21 12:47 Last Admin: 10/17/21 12:10 Dose: 999 mls/hr Documented by: [id number] Ceftriaxone Sodium (Rocephin) 1,000 mg in 50 mls @ 100 mls/hr IV NOW STA Stop: 10/17/21 13:55 Last Admin: 10/17/21 13:39 Dose: 100 mls/hr Documented by: [id number] Imaging Data Radiologist's Impression: Chest X-Ray 10/17/21 10:35 XR chest 1V portable CLINICAL HISTORY: SEPSIS. Evaluate cardiopulmonary status COMPARISON STUDY: 08/24/2021 TECHNIQUE: 1 view of the chest FINDINGS: Single frontal view of the chest demonstrates the cardiomediastinal silhouette to be within normal limits. The lungs are clear of alveolar opacities. There is no evidence for pleural effusion. There is no evidence for vascular congestion. There is no acute osseous pathology. IMPRESSION: 1. No acute cardiopulmonary disease. ACT 112: Negative or not required by law. Electronically signed by: Francois Romano M.D. 10/17/2021 10:58 AM Abdomen/Pelvis CT 10/17/21 10:41 CT abd pelvis wo con CLINICAL HISTORY: hypotension TECHNIQUE: Helical axial images of the abdomen and pelvis were obtained. Automated dose lowering techniques and/or adjustment according to patient size were utilized for this exam. This exam was performed without intravenous contrast. COMPARISON: Comparison is made to CT abdomen pelvis 10/17/2021 FINDINGS: Lower chest: No acute abnormality Liver: An ill-defined hypodense region is seen in segment 6 of the liver measuring 37 x 28 mm. No foci of gas are seen as were seen in the prior exam. Gallbladder and biliary tree: Previously noted gallstones are no longer seen. There is a cholecystoduodenal stent. No intra- or extrahepatic biliary ductal dilation. Pancreas: Unremarkable, no focal lesions. Spleen: Unremarkable. Adrenals: Unremarkable. Kidneys and ureters: Unremarkable. Bladder: Unremarkable. Reproductive organs: Unremarkable. Bowel: Diverticulosis is seen without evidence of diverticulitis. A hiatal her vincent is seen. The appendix is normal. Lymph nodes Retroperitoneal: Subcentimeter lymph nodes are noted. Mesenteric: Unremarkable. Pelvic: Unremarkable. Peritoneum: Normal. Vessels: Atherosclerotic calcifications are seen. Abdominal wall: Unremarkable. Bones: Multilevel degenerative changes including vertebra plana of T12, unchanged from prior exam. IMPRESSION: Previously noted gallstones are no longer seen. There is a cholecystoduodenal stent. Previously noted right hepatic abscess is less conspicuous on today's exam without foci of gas, which may represent improving abscess. Stable promine nt retroperitoneal lymph nodes. Additional findings as above. ACT 112: Negative or not required by law. Electronically signed by: Vicente Edwards M.D. 10/17/2021 1:[address] 10/17/21 10:41 CT SCAN OF THE BRAIN WITHOUT IV CONTRAST CLINICAL HISTORY: Change in mental status. COMPARISON STUDY: CT of the brain dated 08/24/2021. TECHNIQUE: Unenhanced axial CT scan of the brain is performed from the vertex to the skull base. A dose lowering technique was utilized adhering to the principles of ALARA. CT DOSE: 690.05 mGycm FINDINGS: Brain parenchyma: There are age-related involutional changes noting mild subcortical and periventricular microangiopathic change. There is no hemorrhage, mass effect, or evidence of acute territorial ischemia by CT criteria. Vera- white matter differentiation is preserved. No extra-axial fluid collection is seen. Ventricles, sulci, cisterns: Prominent secondary to involutional change. Intracranial vasculature: There is atherosclerotic calcification of the cavernous carotid and vertebral arteries. Calvarium: Unremarkable. Sinuses and mastoids: The visualized paranasal sinuses are clear. The mastoid air cells are well pneumatized. Orbits: The bony orbits are grossly intact. There are bilateral ocular lens implants. IMPRESSION: There is no hemorrhage, mass effect, or evidence of acute territorial ischemia by CT criteria. ACT 112: Negative or not required by law. Electronically signed by: Samm Ferrer M.D. 10/17/2021 12:[address] 10/17/21 10:44 CT SCAN OF THE CERVICAL SPINE CLINICAL HISTORY: Fall. COMPARISON STUDY: Cervical spine radiographs dated 12/29/2020. TECHNIQUE: CT scan of the cervical spine is performed from the skull base to the upper thoracic spine. Images are reviewed in the axial, sagittal, and coronal planes. IV contrast was not administered for this examination. A dose lowering technique was utilized adhering to the principles of ALARA. CT DOSE: 394.11 mGycm FINDINGS: Skeletal structures: The skeletal structures are osteopenic. There is no evidence of fracture or subluxation involving the cervical spine. Vertebral body height is maintained. There is minimal anterolisthesis at C3-C4. Alignment is otherwise preserved. There is straightening of the cervical lordosis. Anterior osteophytes are seen throughout. The odontoid process and lateral masses are intact. The atlantoaxial articulation is preserved noting advanced productive degenerative change. The spinous processes appear intact. There is moderate multilevel cervical spondylosis. Uncovertebral and facet arthropathy contribute to neural foraminal narrowing at several levels. There are small cervical ribs. There are subacute/healing fractures of T2 with retropulsed fragments as well as the left posterior first rib. Intervertebral discs: There is advanced disc space narrowing at C4-C5, C5-C6, and C6-C7. Moderate narrowing is seen at C3-C4. Central canal: Posterior disc osteophyte complexes are seen at all levels between C4-C5 and C6-C7 end likely contribute to multilevel acquired compromise of the central canal. Soft tissues: The prevertebral and paraspinous soft tissues are within normal limits. Calvarium: The visualized calvarium at the skull base appears intact. Brain parenchyma: Partially visualized brain parenchyma at the skull base is within normal limits. Sinuses and mastoids: The visualized paranasal sinuses are clear. The mastoid air cells are well pneumatized. Lung apices: Clear as visualized. IMPRESSION: 1. There is no evidence of fracture or subluxation involving the cervical spine. 2. Osteopenia and spondylotic change as above. 3. There are subacute/healing fractures of the T2 vertebral body with retropulsed fragments as well as the left posterior first rib. ACT 112: Negative or not required by law. Electronically signed by: Samm Ferrer M.D. 10/17/2021 1:06 PM Discharge Plan Visit Data Chief Complaint: Hypotension Stated Complaint: HYPOTENSION,CONFUSION ED Provider: Ghassan Fuentes Discharge Problem: Acute hypotension, Weakness, Urinary tract infection, Head injury, Hypomagnesemia Patient Disposition: Being Evaluated by Hospitalist Forms Stand Alone Forms: [facility] Prescriptions Prescriptions: No Action magnesium oxide 400 mg (241.3 mg magnesium) tablet 400 mg PO BID RF: 0 nortriptyline 10 mg capsule 10 mg PO QAM Qty: 90 RF: 1 levothyroxine 75 mcg tablet 75 mcg PO QAM Qty: 90 RF: 1 montelukast [Singulair] 10 mg tablet 10 mg PO QPM Qty: 90 RF: 1 nortriptyline 25 mg capsule 25 mg PO HS Qty: 90 RF: 3 lansoprazole 15 mg capsule,delayed release(DR/EC) 15 mg PO QAM Qty: 90 RF: 1 escitalopram oxalate [Lexapro] 20 mg tablet 20 mg PO QAM Qty: 90 RF: 1 zoledronic uiwc-nonrsyes-ggwet 5 mg/100 mL piggyback 5 mg/kg IV YEARLY RF: 0 docusate sodium 100 mg Capsule 100 mg PO BID PRN (Reason: Constipation) RF: 0 nitroglycerin [Nitrostat] 0.4 mg Tablet, Sublingual 0.4 mg sublingual Q5M PRN (Reason: chest pain) Qty: 25 RF: 3 aspirin 81 mg Tablet,Delayed Release (Dr/Ec) 81 mg PO QAM RF: 0 atorvastatin 40 mg tablet 40 mg PO QAM RF: 0 oxycodone 5 mg Tablet 5 mg PO Q6H PRN (Reason: Pain) RF: 0 celecoxib 200 mg capsule 200 mg PO BID RF: 0 valacyclovir 1 gram tablet 2,000 mg PO DAILY PRN (Reason: Cold Sores) RF: 0 calcium carbonate-vitamin D3 600 mg-5 mcg (200 unit) Tablet 1 tab PO BID RF: 0 methotrexate sodium 2.5 mg tablet 20 mg PO WK RF: 0 folic acid 1 mg tablet 1 mg PO DAILY RF: 0 ondansetron 4 mg tablet,disintegrating 4 mg translingual Q12 PRN (Reason: Nausea) RF: 0 metoprolol succinate 100 mg tablet extended release 24 hr 150 mg PO QAM RF: 0 Referrals Referrals: Tayla Kent DO [Primary Care Provider] -
--- NOTE | 2021-10-17 10:59 | XRay Report ---
XR chest 1V portable CLINICAL HISTORY: SEPSIS. Evaluate cardiopulmonary status COMPARISON STUDY: 08/24/2021 TECHNIQUE: 1 view of the chest FINDINGS: Single frontal view of the chest demonstrates the cardiomediastinal silhouette to be within normal li mits. The lungs are clear of alveolar opacities. There is no evidence for pleural effusion. There is no evidence for vascular congestion. There is no acute osseous pathology. IMPRESSION: 1. No acute cardiopulmonary disease. ACT 112: Negative or not required by law. Electronically signed by: Francois Romano M.D. 10/17/2021 10:58 AM
[2021-10-17 11:18] LABS: Basophils # (auto) 0.02 K/uL (0-0.2); Basophils % (auto) 0.3 %; Eosinophils # (auto) 0.42 K/uL (0-0.5); Eosinophils % (auto) 5.9 %; Hematocrit (blood only) 36.9 % (37-47); Hemoglobin 11.3 g/dL (12.0-16.0); Immature Granulocytes # (auto) 0.01 K/uL (0.00-0.02); Immature Granulocytes % (auto) 0.1 %; Lymphocytes # (auto) 1.86 K/uL (1.2-3.4); Lymphocytes % (auto) 25.9 %; Mean Corpuscular Hemoglobin 32.7 pg (25-34); Mean Corpuscular Hgb Conc 30.6 g/dL (32-36); Mean Corpuscular Volume 106.6 fL (80-100); Mean Platelet Volume 10.3 fL (7.4-10.4); Monocytes # (auto) 0.33 K/uL (0.11-0.59); Monocytes % (auto) 4.6 %; Neutrophils # (auto) 4.53 K/uL (1.4-6.5); Neutrophils % (auto) 63.2 %; Platelet Count 293 K/uL (130-400); RDW Coefficient of Variation 19.6 % (11.5-14.5); RDW Standard Deviation 76.8 fL (36.4-46.3); Red Blood Count 3.46 M/uL (4.2-5.4); White Blood Count 7.17 K/uL (4.8-10.8)
[2021-10-17 11:31] LABS: INR 1.1 (0.9-1.1); Partial Thromboplastin Ratio 1.2; Partial Thromboplastin Time 32.6 Seconds (21.0-31.0); Prothrombin Time 11.5 Seconds (9.0-12.0)
[2021-10-17 11:37] LABS: Albumin Globulin Ratio 0.6 (0.9-2); Albumin Level 2.3 gm/dl (3.4-5.0); BUN Creatinine Ratio 15.5 (10-20); Bilirubin,Total 0.6 mg/dl (0.2-1.0); C Reactive Protein 2.17 mg/dl (0-0.5); Calcium 8.2 mg/dl (8.5-10.1); Creatinine Clr Calc Pharmacy 66.4 ml/min; Globulin 3.8 gm/dl (2.5-4.0); Magnesium 1.4 mg/dl (1.7-2.4); Potassium 4.2 mmol/L (3.5-5.1); Total Protein 6.1 gm/dl (6.0-8.3)
[2021-10-17 12:07] LABS: Thyroid Stimulating Hormone 10.18 uIu/ml (0.300-4.500)
[2021-10-17 12:38] LABS: T4 Free Thyroxine 0.99 ng/dl (0.61-1.60)
--- NOTE | 2021-10-17 12:57 | CT Scan Report ---
CT SCAN OF THE BRAIN WITHOUT IV CONTRAST CLINICAL HISTORY: Change in mental status. COMPARISON STUDY: CT of the brain dated 08/24/2021. TECHNIQUE: Unenhanced axial CT scan of the brain is performed from the vertex to the skull base. A do se lowering technique was utilized adhering to the principles of ALARA. CT DOSE: 690.05 mGycm FINDINGS: Brain parenchyma: There are age-related involutional changes noting mild subcortical and periventric ular microangiopathic change. There is no hemorrhage, mass effect, or evidence of acute territorial i schemia by CT criteria. Vera-white matter differentiation is preserved. No extra-axial fluid collecti on is seen. Ventricles, sulci, cisterns: Prominent secondary to involutional change. Intracranial vasculature: There is atherosclerotic calcification of the cavernous carotid and vertebr al arteries. Calvarium: Unremarkable. Sinuses and mastoids: The visualized paranasal sinuses are clear. The mastoid air cells are well pneu matized. Orbits: The bony orbits are grossly intact. There are bilateral ocular lens implants. IMPRESSION: There is no hemorrhage, mass effect, or evidence of acute territorial ischemia by CT crit erok. ACT 112: Negative or not required by law. Electronically signed by: Samm Ferrer M.D. 10/17/2021 12:56 PM
--- NOTE | 2021-10-17 13:07 | CT Scan Report ---
CT SCAN OF THE CERVICAL SPINE CLINICAL HISTORY: Fall. COMPARISON STUDY: Cervical spine radiographs dated 12/29/2020. TECHNIQUE: CT scan of the cervical spine is performed from the skull base to the upper thoracic spine . Images are reviewed in the axial, sagittal, and coronal planes. IV contrast was not administered fo r this examination. A dose lowering technique was utilized adhering to the principles of ALARA. CT DOSE: 394.11 mGycm FINDINGS: Skeletal structures: The skeletal structures are osteopenic. There is no evidence of fracture or subl uxation involving the cervical spine. Vertebral body height is maintained. There is minimal anterolis thesis at C3-C4. Alignment is otherwise preserved. There is straightening of the cervical lordosis. A nterior osteophytes are seen throughout. The odontoid process and lateral masses are intact. The atla ntoaxial articulation is preserved noting advanced productive degenerative change. The spinous proces ses appear intact. There is moderate multilevel cervical spondylosis. Uncovertebral and facet arthrop athy contribute to neural foraminal narrowing at several levels. There are small cervical ribs. There are subacute/healing fractures of T2 with retropulsed fragments as well as the left posterior first rib. Intervertebral discs: There is advanced disc space narrowing at C4-C5, C5-C6, and C6-C7. Moderate chanel rowing is seen at C3-C4. Central canal: Posterior disc osteophyte complexes are seen at all levels between C4-C5 and C6-C7 end likely contribute to multilevel acquired compromise of the central canal. Soft tissues: The prevertebral and paraspinous soft tissues are within normal limits. Calvarium: The visualized calvarium at the skull base appears intact. Brain parenchyma: Partially visualized brain parenchyma at the skull base is within normal limits. Sinuses and mastoids: The visualized paranasal sinuses are clear. The mastoid air cells are well pneu matized. Lung apices: Clear as visualized. IMPRESSION: 1. There is no evidence of fracture or subluxation involving the cervical spine. 2. Osteopenia and spondylotic change as above. 3. There are subacute/healing fractures of the T2 vertebral body with retropulsed fragments as well a s the left posterior first rib. ACT 112: Negative or not required by law. Electronically signed by: Samm Ferrer M.D. 10/17/2021 1:06 PM
[2021-10-17 13:17] LABS: Appearance Urine Clear (Clear); Bilirubin Urine Negative (Negative); Blood Urine Trace-intact (Negative); Color Urine Yellow; Glucose Urine UA Negative (Negative); Ketones Urine Negative (Negative); Leukocyte Esterase Urine 2+ (Negative); Nitrite Urine Negative (Negative); Protein Urine Negative (Negative); Specific Gravity Urine 1.015 (1.000-1.030); Urobilinogen Urine Negative (Negative)
[2021-10-17] MEDS ORDERED: cefTRIAXone SODIUM 1,000 MG/50 ML BAG IV STA (13:26)
--- NOTE | 2021-10-17 13:27 | CT Scan Report ---
CT abd pelvis wo con CLINICAL HISTORY: hypotension TECHNIQUE: Helical axial images of the abdomen and pelvis were obtained. Automated dose lowering tech niques and/or adjustment according to patient size were utilized for this exam. This exam was perfor med without intravenous contrast. COMPARISON: Comparison is made to CT abdomen pelvis 10/17/2021 FINDINGS: Lower chest: No acute abnormality Liver: An ill-defined hypodense region is seen in segment 6 of the liver measuring 37 x 28 mm. No foc i of gas are seen as were seen in the prior exam. Gallbladder and biliary tree: Previously noted gallstones are no longer seen. There is a cholecystodu odenal stent. No intra- or extrahepatic biliary ductal dilation. Pancreas: Unremarkable, no focal lesions. Spleen: Unremarkable. Adrenals: Unremarkable. Kidneys and ureters: Unremarkable. Bladder: Unremarkable. Reproductive organs: Unremarkable. Bowel: Diverticulosis is seen without evidence of diverticulitis. A hiatal hernia is seen. The append ix is normal. Lymph nodes Retroperitoneal: Subcentimeter lymph nodes are noted. Mesenteric: Unremarkable. Pelvic: Unremarkable. Peritoneum: Normal. Vessels: Atherosclerotic calcifications are seen. Abdominal wall: Unremarkable. Bones: Multilevel degenerative changes including vertebra plana of T12, unchanged from prior exam. IMPRESSION: Previously noted gallstones are no longer seen. There is a cholecystoduodenal stent. Previously noted right hepatic abscess is less conspicuous on today's exam without foci of gas, which may represent i mproving abscess. Stable prominent retroperitoneal lymph nodes. Additional findings as above. ACT 112: Negative or not required by law. Electronically signed by: Vicente Edwards M.D. 10/17/2021 1:26 PM
[2021-10-17] MEDS: MAGNESIUM SULFATE / D5W 1 GM/100 ML BAG IV SCH ×2 (13:40→16:30)
[2021-10-17 13:41] LABS: Bacteria Urine 3+ (Negative); Epithelial Cell Urine 0-5 /lpf (0-5); RBC Urine 0-4 /hpf (0-4)
--- NOTE | 2021-10-17 15:28 | Electrocardiogram Report ---
Test Reason : Blood Pressure : / mmHG Vent. Rate : 061 BPM Atrial Rate : 061 BPM P-R Int : 190 ms QRS Dur : 108 ms QT Int : 492 ms P-R-T Axes : 036 -39 129 degrees QTc Int : 495 ms Normal sinus rhythm Left axis deviation Anterior infarct (cited on or before 24-AUG-2021) Abnormal ECG When compared with ECG of 24-AUG-2021 09:15, No significant change was found Confirmed by Eusebio Stevenson ([id number]) on 10/17/2021 3:27:41 PM Referred By: REFERRED SELF Confirmed By:Eusebio Stevenson
--- NOTE | 2021-10-17 16:28 | History & Physical Report ---
Date of Service October 17, 2021 Assessment & Plan (1) Acute hypotension: Plan: * Presenting BP 89/57 * Patient afebrile, without leukocytosis, lactic acid level normal * Known liver abscess for which she is to be on IV antibiotics. Due to miscommunication, these were stopped prematurely 2 weeks ago * Lengthy review of records and discussion with GI/IDplaced back on ertapenem--see below * BP has responded to aggressive fluid resuscitation and is currently 118/67 * Hold antihypertensive agents for now * Blood cultures including fungal blood cultures ordered and pending * Urine culture pending * Suspect underlying cause is known liver abscess * Although ESR and CRP are elevated at 52/2.17, they are downtrending from 84/4.2 (2) Liver abscess: Plan: * Patient with known liver abscess secondary to gallstone erosion requiring recent hospitalization at [facility] * Spoke with GI, not candidate for IR given size and abscess not walled off * Seen by ID who recommended IV ertapenem. Was to continue through at least 09/29 with follow-up imaging to determine total length of treatment. There was a miscommunication upon discharge from the detention facility. Patient had a follow-up CT scan and 1 of 2 abscesses resolved. The other smaller in size but persistent. ID wanted an additional 3 weeks of IV antibiotics with follow-up imaging to trend but inadvertently, antibiotics were stopped and PIC C line removed * Restart ertapenem * Will reach out to ID tomorrow to confirm this plan as outlined by ID audio visual secretary. * Patient will likely need reinsertion of PICC line which will await for negative blood cultures given acute hypotension (3) Fungemia: Plan: * Per review of records, patient with "yeast" in the blood. Does not seem to have been identified. * At any rate was seen by infectious disease who recommended Diflucan through 09/11. Patient has completed this * Given acute hypotension, will repeat fungal blood culture (4) Coronary artery disease: Plan: * Patient with known CAD. Cath 02/19 with proximal LAD 100% blockage with filling via left to left and right to left collaterals * Hold metoprolol given hypotension * Continue aspirin and statin therapy (5) Rheumatoid arthritis: Plan: * Hold methotrexate given liver abscess and hypotension without other evidence of sepsis-- as this will only potentiate her immunocompromise state Plan: CODE STATUS: Full code. Discussed with patient Lovenox for DVT prophylaxis Plan of care was discussed with Dr. Ellison her established GI and the audio visual secretary for the infectious disease specialist that she saw while in [place] (who was able to review records with me). Will call back tomorrow to speak to ID Plan of care discussed with Dr. Juan. Further orders as warranted. History of Present Illness Chief Complaint: Low BP and subtle confusion Primary Care Provider: Tayla Kent DO Mrs. Caceres is a 71 past medical history of CAD, hypothyroidism, asthma, hypertension, and RA on chronic methotrexate. She presented to the emergency department complaining of low BP and subtle confusion X 2 to 3 days. Patient has a complicated remote history of a liver abscess. She presented to our emergency department in August with septic shock requiring pressor support. She was found to have a perforated gallbladder with associated liver abscess. Prior to that hospitalization, she was hospitalized 05/30 through 06/03 for anemia, Covid, and subsequently found to have choledocholithiasis with acute cholecystitis. At that time it was noted to be mild. She had an ERCP and multiple stones were removed. Biliary sphincterectomy with successful with biliary stent placement and she was treated with antibiotics. She recovered from Covid and subsequently discharged home when to present back in August with sepsis due to perforated gallbladder and liver abscess formation. She was transferred to [facility] due to lack of interventional radiology. In [place], she had and AXIOS stent and clearance of occluded debris. Subsequently had cardiac arrest and and subsequently had ROSC within 5min but did require ventilatory support in addition to pressor support. There she was found to have fistula due to gallstone erosion along with 2 abscesses noted within the liver. Patient had a cholecystostomy tube. In the interim, she was also found to be Fungemic. Was seen by ID with recommendations to remain on IV e rtapenem through at least 09/29 but length of treatment to be determined based on follow-up CT scan. She was discharged to a detention facility. Recently had her FU CT to re-evaluate the liver abscesses and determine length of treatment. Unfortunately, there was miscommunication and her PICC line was removed and IV antibiotic therapy was discontinued. In talking with her established superintendent car construction, the 1 liver abscess had resolved but the other remained. Although smaller, she needed to be on an additional 3 weeks of IV antibiotic therapy with follow-up imaging. Patient was discharged from the detention facility without antibiotics. She recently Followed up with Dr. Ellison (GI) where she had removal of her cholecystostomy tube and inadvertently, her biliary stent also came out. Underwent ERCP on 10/09 for reinsertion of this stent. She has been doing well up until 2 days ago when she developed intermittent and mild increased confusion. She is oriented today and answering all questions appropriately. Her per says that she just "has not been right". She reports increased fatigue and chills but denies fevers. She has been monitoring her blood pressure at home and today her blood pressure has been low (82/47). She did take her morning metoprolol (150 mg). She has felt dizzy and lightheaded today. She called her infectious disease specialist to was going to arrange for outpatient IV antibiotics; however, she did not have IV access and she was told to come to the emergency department for further evaluation and care. Upon presentation to the ED, BP was 88/63. Otherwise she was hemodynamically stable. Her white blood cell count is normal at 7.17. Her metabolic panel is normal. LFTs are normal. Her sed rate is elevated at 52 but has down trended from 84. Her CRP is elevated at 2.14 but is also down trended from 14.2. Her lactic acid level is normal at 1.9. Magnesium level is low at 1.4. CT of the abdomen and pelvis shows cholecystoduodenal stent without evidence of stones and the remaining liver abscess measuring 3.7 x 2.8 cm (in talking with GI, this was previously 4.3 cm). Prior to examination by myself, she had received 1/2 L of IV fluids but no IV fluids running. Current BP 89/57. Started back on IV fluids wide open with subsequent blood pressure of 107/63 Initially, thought that patient would need to be transferred back to [facility] but after review of all records, and discussion with GI and IDshe really needs placed back on her IV antibiotics. GI reassures me that this cyst is not drainable Allergies Allergy/AdvReac Type Severity Reaction Status Date / Time bacitracin Allergy Intermediate Hives, Verified 10/17/21 14:47 blisters clavulanic acid Allergy Intermediate Hives Verified 10/17/21 14:47 diphenhydramine Allergy Intermediate Hives Verified 10/17/21 14:47 iodine Allergy Intermediate Hives Verified 10/17/21 14:47 ketorolac Allergy Intermediate Hives Verified 10/17/21 14:47 meclofenamic acid Allergy Intermediate Hives Verified 10/17/21 14:47 neomycin Allergy Intermediate Hives, Verified 10/17/21 14:47 blisters NSAIDS (Non-Steroidal Allergy Intermediate Hives Verified 10/17/21 14:47 Anti-Inflamma (tolerates Celebrex) oxycodone Allergy Intermediate Hives Verified 10/17/21 14:47 (tolerates Vicodin) polymyxin B Allergy Intermediate Hives, Verified 10/17/21 14:47 blisters quinine Allergy Intermediate Hives Verified 10/17/21 14:47 Sulfa (Sulfonamide Allergy Intermediate Hives Verified 10/17/21 14:47 Antibiotics) tramadol Allergy Intermediate Hives, Verified 10/17/21 14:47 itching adhesive Allergy Mild Rash Verified 10/17/21 14:47 latex Allergy Mild Rash Verified 10/17/21 14:47 povidone-iodine Allergy Mild Rash Verified 10/17/21 14:47 doxycycline Allergy Anaphylaxis Unverified 10/17/21 14:47 meperidine AdvReac Intermediate N/V Verified 10/17/21 14:47 prednisone AdvReac Intermediate Made Verified 10/17/21 14:47 "bones soft" aspirin AdvReac Mild N/V Verified 10/17/21 14:47 Home Medications Medication Instructions Recorded Confirmed Type magnesium oxide 400 mg (241.3 mg 400 mg PO BID tab 05/26/18 10/17/21 History magnesium) tablet docusate sodium 100 mg capsule 100 mg PO BID PRN 02/26/19 10/17/21 History zoledronic acid 5 mg/100 mL in 5 mg/kg IV YEARLY ml 03/02/19 10/17/21 History mannitol 5 %-water intravenous piggybck nitroglycerin 0.4 mg sublingual 0.4 mg SUBLINGUAL Q5M PRN #25 tab 02/22/21 10/17/21 Rx tablet (Nitrostat) nortriptyline 10 mg capsule 10 mg PO QAM #90 cap 02/27/21 10/17/21 Rx levothyroxine 75 mcg tablet 75 mcg PO QAM #90 tab 03/15/21 10/17/21 Rx Singulair 10 mg tablet 10 mg PO QPM #90 tab NS 04/17/21 10/17/21 Rx (montelukast) aspirin 81 mg tablet,delayed 81 mg PO QAM 05/30/21 10/17/21 History release nortriptyline 25 mg capsule 25 mg PO HS #90 cap 06/08/21 10/17/21 Rx escitalopram oxalate 20 mg tablet 20 mg PO QAM #90 tab 07/23/21 10/17/21 Rx (Lexapro) calcium carbonate 600 mg-vitamin 1 tab PO BID 08/24/21 10/17/21 History D3 5 mcg (200 unit) tablet celecoxib 200 mg capsule 200 mg PO BID 08/24/21 10/17/21 History folic acid 1 mg tablet 1 mg PO DAILY 08/24/21 10/17/21 History methotrexate sodium 2.5 mg tablet 20 mg PO WK 08/24/21 10/17/21 History metoprolol succinate 100 mg 150 mg PO QAM 08/24/21 10/17/21 History tablet,extended release 24 hr ondansetron 4 mg disintegrating 4 mg TRANSLINGUAL Q12 PRN 08/24/21 10/17/21 History tablet valacyclovir 1 gram tablet 2,000 mg PO DAILY PRN 08/24/21 10/17/21 History atorvastatin 40 mg tablet 40 mg PO QAM 10/05/21 10/17/21 History lansoprazole 15 mg capsule,delayed 15 mg PO QAM 10/17/21 10/17/21 History release (Prevacid 24Hr) Past Med/Surg History Medical History Allergic rhinitis Anemia Anxiety and depression Asthma Coronary artery disease Cardiac catheterization -02/22/2021:Impression: 1. Severe CAD involving ostial/proximal LAD (100%), filling via left to left and right to left collaterals. 2. Otherwise nonobstructive CAD involving the mid circumflex. 3. No aortic stenosis. 4. Normal left-sided filling pressure. Gallstone GERD (gastroesophageal reflux disease) History of COVID-19 DX 05/2021 (NO SYMPTOMS>PT STATES WAS A FALSE POSITIVE) History of right breast cancer s/p lumpectomy (1969)- no chemo or xrt Hx of fracture Right shoulder AC joint fracture (10/2020) due to traumatic event > healing without surgical intervention Hyperlipidemia Hypertension Hypothyroidism IBS (irritable bowel syndrome) Insomnia Ischemic cardiomyopathy Lumbar facet joint syndrome Lumbar spinal stenosis Rheumatoid arthritis On Methotrexate Sacroiliitis Steroid-induced osteoporosis Surgical History H/O arthroscopy of shoulder L shoulder H/O cataract extraction R/L eye History of arthroscopy of left knee History of breast biopsy History of cardiac cath NO STENTS History of ERCP WITH STENT (NOT PRESENT) History of foot surgery R/L History of lumpectomy of right breast History of right knee joint replacement History of tonsillectomy History of total abdominal hysterectomy and bilateral salpingo-oophorectomy d/t endometriosis Nausea and vomiting after administration of anesthetic agent S/P ORIF (open reduction internal fixation) fracture Left ankle S/p reverse total shoulder arthroplasty Left reverse TSA (02/26/19): Grade view 2, MAC#3, ETT 7 + PNB at [facility] (scope patch used) Family History Grandmother (Paternal) Family history of diabetes mellitus Grandmother (Maternal) Family history of diabetes mellitus Father Coronary heart disease Alzheimer disease Myocardial infarction Osteoarthritis COPD (chronic obstructive pulmonary disease) Lung disease Mother Myocardial infarction COPD (chronic obstructive pulmonary disease) Other No family history of adverse response to anesthesia Denies family history of Ovarian cancer Prostate cancer Breast cancer Colorectal cancer Social History Smoking Status: Never smoker Second Hand Exposure: No; Hx Alcohol Use: No Preferred Language: Persian Communication Ability: Effective Visual Impairment: Limited Hearing Ability: Normal Carbon Paper Interleafer Required: No Beliefs That Will Affect Care: None marital status: Current Living Situation: Family Current Living Situation Comment: AND SON/GRANDAUGHTER current occupational status: retired How many Children do You have: 2 Feels Safe at Home: Yes Childhood Exposure to Second-Hand Smoke: Yes caffeine: Yes (coffee) during the past year weight has: remained stable Dental Care, Regularly: No Physical Activity Frequency: Daily Physical Activity Frequency Comment: chores Seatbelt Use: always Sunscreen Use: No Assistive Devices: Denture - Upper, Denture - Lower, Glasses, Walker and Wheelchair Review of Systems Review of Systems: All systems reviewed and are unremarkable except as noted in HPI and below Denies fevers, headache, nasal congestion, sore throat, cough, chest pain, shortness of breath, palpitations, orthopnea, PND, abdominal pain, nausea, vomiting, diarrhea, constipation, dysuria, hematuria, frequency, back pain, joint pain or swelling, easy bruising or bleeding, skin lesions or rashes. Physical Exam Physical Exam: General: Resting comfortably in her hospital bed. She does not appear ill or toxic NAD. HEENT: Head is AT/NC. Buccal mucosa is moist and pink Neck: No JVD. Negative hepatojugular reflex Cardiac: RRR without M/G/R Lungs: CTA without W/R/R Abdomen: Normoactive X4. Soft and nontender in all quadrants. Extremities: No peripheral clubbing cyanosis or edema Neuro: A&O X4. Cranial nerves II through XII are grossly intact. No focal neuro deficits Skin: No obvious skin lesions or rashes Psych: Appropriate affect. Pleasant and cooperative Results & Data Results & Data ([facility]) Vital Signs (Past 12 Hours) Vital Signs Temp Pulse Pulse Resp BP BP Pulse Ox 10/17/21 13:00 72 23 110/45 L 99 10/17/21 12:15 60 22 90/70 L 98 10/17/21 11:30 62 19 92/56 L 98 10/17/21 10:35 63 16 95/52 L 96 10/17/21 10:22 36.5 C 92 H 18 88/63 L 96 Laboratory Results 10/17/21 11:04 10/17/21 11:04 Total bilirubin: 0.6 AST: 32 ALT: 17 ESR: 52 CRP: 2.17 Lactic acid: 1.9 Magnesium: 1.4 TSH: 10.[address] of the C-spine IMPRESSION: 1. There is no evidence of fracture or subluxation involving the cervical spine. 2. Osteopenia and spondylotic change as above. 3. There are subacute/healing fractures of the T2 vertebral body with retropulsed fragments as well as the left posterior first rib. CT Head: IMPRESSION: There is no hemorrhage, mass effect, or evidence of acute territorial ischemia by CT criteria. CT A/P IMPRESSION: Previously noted gallstones are no longer seen. There is a cholecystoduodenal stent. Previously noted right hepatic abscess is less conspicuous on today's exam without foci of gas, which may represent improving abscess. Stable prominent retroperitoneal lymph nodes. Additional findings as above. Code Status & VTE Plan VTE Prophylaxis Plan VTE Prophylaxis will be ordered: Yes Supervising Physician Co-Signing Physician Notes I supervised Charis Mehta PA-C on the care of this patient. I interviewed and examined the patient independently of her. The plan is as written in her note except for any following changes/exceptions: None Seen in the afternoon. BP remains stable, and the patient has few complaints. As per Ms. Mehta's note, patient was meant to still be on IV abx for her liver abscesses, but this was stopped due to miscommunication on discharge from SNF. Will restart abx, follow cultures, and plan to restart PICC. PG Care Time/CCT Total # of Minutes Spent Total Time Spent with Patient: Total time spent is greater than 50% in coordination of care (as documented) at patient's floor/unit and/or counseling patient: Coding Level of Care Code 49955 Initial Inpt Care Lvl 3 Diagnoses Acute hypotension I95.9 Liver abscess K75.0 Fungemia B49 Coronary artery disease I25.10 Rheumatoid arthritis M06.9
[2021-10-17] MEDS ORDERED: ALUMINUM/MAGNESIUM SUSP 30 ML UDC PO PRN (17:42)
[2021-10-17] MEDS ORDERED: SODIUM CHLORIDE 0.9% 1000ML 1,000 ML IV SCH (17:42)
[2021-10-17] MEDS ORDERED: ACETAMINOPHEN 325 MG TAB PO PRN (17:42)
[2021-10-17] MEDS ORDERED: POLYETHYLENE (MIRALAX) 17 GM PACK PO PRN (17:42)
[2021-10-17] MEDS ORDERED: NITROGLYCERIN SL 0.4 MG/TAB TAB SL PRN (17:42)
[2021-10-17] MEDS ORDERED: MAGNESIUM HYDROXIDE SUSP 30 ML UDC PO PRN (17:42)
[2021-10-17] MEDS ORDERED: ONDANSETRON INJ 2 MG/ML 2 ML VIAL IV PRN (17:42)
[2021-10-17] MEDS: FLUCONAZOLE 200 MG/100 ML BAG IV SCH ×2 (18:56→20:17)
[2021-10-17] MEDS: SODIUM CHLORIDE 0.9% 1000ML 1,000 ML IV SCH ×2 (20:18→21:18)
[2021-10-17] MEDS: MAGNESIUM OXIDE 400 MG TAB PO SCH (21:54)
[2021-10-17] MEDS: MONTELUKAST SODIUM 10 MG TABLET PO SCH (21:54)
[2021-10-17] MEDS: ERTAPENEM SODIUM 1,000 MG in SYRINGE 0 ML IV SCH (21:54)
[2021-10-17] MEDS: NORTRIPTYLINE HCL 25 MG CAP PO SCH (21:57)
[2021-10-18] MEDS: SODIUM CHLORIDE 0.9% 1000ML 1,000 ML IV SCH ×4 (00:53→08:24)
[2021-10-18] MEDS ORDERED: MAGNESIUM SULFATE / D5W 1 GM/100 ML BAG IV STA (03:17)
[2021-10-18] MEDS ORDERED: MAGNESIUM SULFATE 1GM / D5W BAG IV ONE (03:30)
[2021-10-18] MEDS: ALBUMIN 25% 100 mL 25 GM/100 ML VIAL IV SCH ×2 (04:18→06:37)
[2021-10-18] MEDS ORDERED: DEXTROSE 50% 50 ML SYRINGE IV STA (05:07)
[2021-10-18 06:16] LABS: Basophils # (auto) 0.01 K/uL (0-0.2); Basophils % (auto) 0.2 %; Eosinophils # (auto) 0.37 K/uL (0-0.5); Eosinophils % (auto) 5.8 %; Hematocrit (blood only) 34.8 % (37-47); Hemoglobin 10.6 g/dL (12.0-16.0); Immature Granulocytes # (auto) 0.01 K/uL (0.00-0.02); Immature Granulocytes % (auto) 0.2 %; Lymphocytes % (auto) 34.7 %; Mean Corpuscular Hemoglobin 32.5 pg (25-34); Mean Corpuscular Hgb Conc 30.5 g/dL (32-36); Mean Corpuscular Volume 106.7 fL (80-100); Mean Platelet Volume 10.1 fL (7.4-10.4); Monocytes % (auto) 4.7 %; Neutrophils # (auto) 3.45 K/uL (1.4-6.5); Neutrophils % (auto) 54.4 %; Platelet Count 224 K/uL (130-400); RDW Coefficient of Variation 19.6 % (11.5-14.5); RDW Standard Deviation 76.5 fL (36.4-46.3); Red Blood Count 3.26 M/uL (4.2-5.4); White Blood Count 6.34 K/uL (4.8-10.8)
[2021-10-18 06:33] LABS: Albumin Globulin Ratio 0.8 (0.9-2); Albumin Level 2.5 gm/dl (3.4-5.0); Bilirubin,Total 0.4 mg/dl (0.2-1.0); Calcium 7.4 mg/dl (8.5-10.1); Est GFR (African American) 107.8 ml/min; Globulin 3.2 gm/dl (2.5-4.0); Magnesium 2.2 mg/dl (1.7-2.4); Potassium 3.8 mmol/L (3.5-5.1); Total Protein 5.7 gm/dl (6.0-8.3)
[2021-10-18] MEDS: LEVOTHYROXINE SODIUM 88 MCG TABLET PO SCH (06:38)
[2021-10-18] MEDS ORDERED: GLUCOSE 10 TABS/TUBE PO PRN (08:29)
[2021-10-18] MEDS ORDERED: DEXTROSE 50% 50 ML SYRINGE IV PRN (08:29)
[2021-10-18] MEDS ORDERED: CARBOHYDRATES FOR HYPOGLYCEMIA PO PRN (08:29)
[2021-10-18] MEDS ORDERED: GLUCOSE 40% GEL 15 GM TUBE PO PRN (08:29)
[2021-10-18] MEDS ORDERED: GLUCAGON FOR INJ 1 MG VIAL SQ PRN (08:29)
[2021-10-18] MEDS ORDERED: METOPROLOL TARTRATE 25 MG TAB PO SCH (09:00)
[2021-10-18] MEDS: ATORVASTATIN 40 MG TAB PO SCH (10:34)
[2021-10-18] MEDS: ESCITALOPRAM OXALATE 20 MG TAB PO SCH (10:34)
[2021-10-18] MEDS: ASPIRIN 81 MG ECTAB PO SCH (10:35)
[2021-10-18] MEDS: MAGNESIUM OXIDE 400 MG TAB PO SCH ×2 (10:35→20:30)
[2021-10-18] MEDS: FOLIC ACID 1 MG TAB PO SCH (10:35)
[2021-10-18] MEDS: NORTRIPTYLINE HCL 10 MG CAP PO SCH (10:35)
[2021-10-18] MEDS: ENOXAPARIN INJ 40 MG/0.4 ML SYR SQ SCH (10:40)
[2021-10-18] MEDS ORDERED: LORazepam 0.5 MG TAB PO PRN (14:24)
[2021-10-18] MEDS ORDERED: LORazepam 0.5 MG TAB ONE (14:30)
--- NOTE | 2021-10-18 14:39 | Hospitalist Progress Note ---
Date of Service October 18, 2021 Assessment & Plan (1) Acute hypotension: Plan: Resolved * Presenting BP 89/57 * afebrile, without leukocytosis, lactic acid level normal * Known liver abscess for which she is to be on IV antibiotics. Due to miscommunication, these were stopped prematurely 2 weeks POT ANNEALER * Lengthy review of records and discussion with GI/IDplaced back on ertapenem--see below * Responded favorably to aggressive fluid resuscitation * Initially, antihypertensive agents held but given brief episode of V. tach, resume beta-giuliano * Blood cultures including fungal blood cultures ordered and pending * Urine culture pending * Suspect underlying cause is known liver abscess * Although ESR and CRP are elevated at 52/2.17, they are downtrending from 84/4.2 (2) Delirium: Plan: * Patient with waxing and waning delirium although does answer questions appropriately * In talking with infectious disease, this was noted when she spoke to the patient on the phone days ago * VBG showing no hypercapnia * CT of the head normal * Ammonia level normal * Suspect infectious encephalopathy. Will continue to monitor (3) V-tach: Plan: * 10-second run of nonsustained V. tach in the overnight hours on 10/18 * Patient with known underlying heart disease for which she follows [facility] -- Cardiac Catheterization 02/22/2021: --Ostial/proximal LAD 100% occlusion. -- LAD fills via [id number] and adzto-el-ogdx collaterals. -- Mid circumflex 40%-50%. -- Dominant RCA. * Placed back on beta-blockade and monitor * Recent echo done on 08/21 showing preserved EF of 55 to 60% * Not candidate for ICD given active infection (4) Liver abscess: Plan: * Patient with known liver abscess secondary to gallstone erosion requiring recent hospitalization at [facility] * Spoke with GI, not candidate for IR given size and abscess not walled off * Seen by ID at [facility] who recommended IV ertapenem. Was to continue through at least 09/29 with follow-up imaging to determine total length of treatment. There was a miscommunication upon discharge from the SNF. Patient had a follow-up CT scan and 1 of 2 abscesses resolved. The other smaller in size b ut persistent. ID wanted an additional 3 weeks of IV antibiotics with follow- up imaging to trend but inadvertently, antibiotics were stopped and PICC line removed * Back on ertapenem * Discussed with Brittany (special education secretary for established infectious disease provider) who reports recommendations are for a minimum of 3 weeks of ertapenem with follow-up CT scan to determine total length of treatment. P atient will need follow-up imaging * Patient will need a PICC line but awaiting negative blood cultures to ensure not bacteremic or Fungemic given presenting hypotension (consent obtained and on chart) (5) Fungemia: Plan: * Patient with Rae albicans fungemia during recent hospitalization * Completed Diflucan through 09/11 * Given acute hypotension, fungal blood cultures repeated and pending (6) Coronary artery disease: Plan: * Patient with known CAD. Cath 02/19 with proximal LAD 100% blockage with filling via left to left and right to left collaterals * Metoprolol held upfront given hypotension but will resume * Continue aspirin and statin therapy (7) Rheumatoid arthritis: Plan: * Hold methotrexate given liver abscess and hypotension without other evidence of sepsis-- as this will only potentiate her immunocompromise state * Would remain off of this medication until cleared by ID Plan: CODE STATUS: Full code. Discussed with patient Filiberto for DVT prophylaxis Plan of care discussed with Dr. Juan. Further orders as warranted. Admission and Anticipated Discharge Date Admission Date: October 17, 2021 Subjective Patient seen on daily rounds today. Did have a 10-second run of V. tachn onsustained overnight. Was treated with IV magnesium. Heart rate today in the 80s to 90s. Blood pressure much better at 124 systolic. Placed back on her beta-giuliano (reduced dose) and she has remained hemodynamically stable. Her has come in to visit and is concerned that she seems somewhat confused. When he first came in, she was sleeping and when awoke she "asked to go to the kitchen". Once fully awake, she seemed to answer all questions appropriately. She had a similar event for me this morning when making rounds and nursing voices intermittent periods of confusion. VBG shows no evidence of hypercapnia. Ammonia levels normal. CT of the head done yesterday showing no acute pathology. Review of Systems Review of Systems: All systems reviewed and are unremarkable except as noted in HPI and below Denies fevers, headache, nasal congestion, sore throat, cough, chest pain, shortness of breath, palpitations, orthopnea, PND, abdominal pain, nausea, vomiting, diarrhea, constipation, dysuria, hematuria, frequency, back pain, joint pain or swelling, easy bruising or bleeding, skin lesions or rashes. Physical Exam Physical Exam: General: Resting comfortably in her hospital bed. She does not appear ill or toxic NAD. HEENT: Head is AT/NC. Buccal mucosa is moist and pink Neck: No JVD. Negative hepatojugular reflex Cardiac: RRR without M/G/R Lungs: CTA without W/R/R Abdomen: Normoactive X4. Soft and nontender in all quadrants. Extremities: No peripheral clubbing cyanosis or edema Neuro: A&O X4. Cranial nerves II through XII are grossly intact. No focal neuro deficits. slightly tremulous (?rigors) Skin: No obvious skin lesions or rashes Psych: Appropriate affect. Pleasant and cooperative Results & Data Results & Data ([facility]) Vital Signs (Past 12 Hours) Vital Signs Temp Pulse Pulse Resp BP BP Pulse Ox 10/18/21 10:54 36.8 C 91 H 24 105/67 96 10/18/21 10:35 10/18/21 06:01 87 24 118/68 97 10/18/21 06:00 85 21 10/18/21 05:00 78 16 95 10/18/21 04:00 76 18 129/70 96 10/18/21 03:00 77 94 Pulse Ox 10/18/21 10:54 10/18/21 10:35 97 10/18/21 06:01 10/18/21 06:00 10/18/21 05:00 10/18/21 04:00 10/18/21 03:00 Laboratory Results 10/18/21 05:38 10/18/21 05:38 Diagnostic Findings Heart monitor showing sinus rhythm PG Care Time/CCT Total # of Minutes Spent Total Time Spent with Patient: Total time spent is greater than 50% in coordination of care (as documented) at patient's floor/unit and/or counseling patient: Coding Level of Care Code 83335 Subseq Hosp Care Lvl 3 Diagnoses Acute hypotension I95.9 Liver abscess K75.0 Fungemia B49 Coronary artery disease I25.10 Rheumatoid arthritis M06.9 Delirium R41.0 V-tach I47.2
[2021-10-18 15:00] LABS: Base Excess VBG -3.7 mEq/L; HCO3 VBG 21 mmol/L; PCO2 VBG 39 mmHg (38-50); PO2 VBG 34 mmHg; pH VBG 7.36 (7.36-7.41)
[2021-10-18 15:06] LABS: Oxygen Saturation VBG < 60.0 %
[2021-10-18] MEDS: THIAMINE HCL 100 MG TAB PO SCH (16:44)
[2021-10-18] MEDS: FLUCONAZOLE 200 MG/100 ML BAG IV SCH ×2 (17:57→18:35)
[2021-10-18] MEDS: ERTAPENEM SODIUM 1,000 MG in SYRINGE 0 ML IV SCH (18:02)
[2021-10-18] MEDS: MONTELUKAST SODIUM 10 MG TABLET PO SCH (20:38)
[2021-10-18] MEDS: NORTRIPTYLINE HCL 25 MG CAP PO SCH (20:39)
[2021-10-18] MEDS ORDERED: FLUCONAZOLE 200 MG/100 ML BAG IV SCH (21:00)
[2021-10-18] MEDS ORDERED: METOPROLOL TARTRATE 50 MG TAB PO SCH (21:00)
[2021-10-19] MEDS ORDERED: LACTATED RINGER'S 1,000 ML IV ONE (04:14)
[2021-10-19 06:09] LABS: Basophils # (auto) 0.01 K/uL (0-0.2); Basophils % (auto) 0.2 %; Eosinophils # (auto) 0.28 K/uL (0-0.5); Hematocrit (blood only) 31.5 % (37-47); Hemoglobin 9.5 g/dL (12.0-16.0); Immature Granulocytes # (auto) 0.01 K/uL (0.00-0.02); Immature Granulocytes % (auto) 0.2 %; Lymphocytes # (auto) 1.96 K/uL (1.2-3.4); Lymphocytes % (auto) 35.3 %; Mean Corpuscular Hemoglobin 32.4 pg (25-34); Mean Corpuscular Hgb Conc 30.2 g/dL (32-36); Mean Corpuscular Volume 107.5 fL (80-100); Mean Platelet Volume 10.8 fL (7.4-10.4); Monocytes # (auto) 0.32 K/uL (0.11-0.59); Monocytes % (auto) 5.8 %; Neutrophils # (auto) 2.97 K/uL (1.4-6.5); Neutrophils % (auto) 53.5 %; Platelet Count 210 K/uL (130-400); RDW Coefficient of Variation 19.5 % (11.5-14.5); RDW Standard Deviation 76.4 fL (36.4-46.3); Red Blood Count 2.93 M/uL (4.2-5.4); White Blood Count 5.55 K/uL (4.8-10.8)
[2021-10-19 06:39] LABS: BUN Creatinine Ratio 8.7 (10-20); Calcium 8.5 mg/dl (8.5-10.1); Creatinine Clr Calc Pharmacy 91.3 ml/min; Est GFR (African American) 117.6 ml/min; Est GFR (Non-African American) 101.5 ml/min; Magnesium 1.8 mg/dl (1.7-2.4)
[2021-10-19] MEDS: ASPIRIN 81 MG ECTAB PO SCH (09:10)
[2021-10-19] MEDS: ATORVASTATIN 40 MG TAB PO SCH (09:10)
[2021-10-19] MEDS: FOLIC ACID 1 MG TAB PO SCH (09:10)
[2021-10-19] MEDS: MAGNESIUM OXIDE 400 MG TAB PO SCH ×2 (09:10→20:19)
[2021-10-19] MEDS: ESCITALOPRAM OXALATE 20 MG TAB PO SCH (09:10)
[2021-10-19] MEDS: LEVOTHYROXINE SODIUM 88 MCG TABLET PO SCH (09:10)
[2021-10-19] MEDS: THIAMINE HCL 100 MG TAB PO SCH (09:11)
[2021-10-19] MEDS: ENOXAPARIN INJ 40 MG/0.4 ML SYR SQ SCH (09:11)
[2021-10-19] MEDS: NORTRIPTYLINE HCL 10 MG CAP PO SCH (09:11)
--- NOTE | 2021-10-19 09:57 | Hospitalist Progress Note ---
Date of Service October 19, 2021 Assessment & Plan (1) Volume overload: Plan: * No evidence of fulminant CHF and no history of CHF but seems to be slightly volume overloaded on 10/19 * Patient did receive aggressive hydration upfront given her hypotension--her fluid balance is +7.4 L * Patient with end expiratory wheezes and mild pitting edema although not requiring any supplemental oxygen * Chest x-ray shows no significant pulmonary vascular congestion. BNP is sligh tly elevated at 690 but not concerningly so. Her hemoglobin has dropped and is likely dilutional * Her BP has remained stable. Will give 1 dose of IV Lasix now and follow clinically (2) Acute hypotension: Plan: Resolved * Presenting BP 89/57 * afebrile, without leukocytosis, lactic acid level normal * Known liver abscess for which she is to be on IV antibiotics. 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 Patient does not seem to tolerate the 150 mg dose of metoprolol as prescribed prior to hospitalization and in review of records, she has a history of hypotension with this dose. I have cut this in half * Blood cultures including fungal blood cultures ordered and pending * Urine culture showing no growth * Suspect underlying cause is known liver abscess * Although ESR and CRP are elevated at 52/2.17, they are downtrending from 84/4.2 (3) Delirium: Plan: * Patient with waxing and waning delirium although does answer questions appropriately * In talking with infectious disease, this was noted when she spoke to the patient on the phone days ago * VBG showing no hypercapnia * CT of the head normal * Ammonia level normal * Suspect infectious encephalopathy * Improving now that she is back on IV antibiotics (4) V-tach: Plan: * There was concern for 10-second run of nonsustained V. tach in the overnight hours on 10/18 * Patient with known underlying heart disease for which she follows [facility] -- Cardiac Catheterization 02/22/2021: --Ostial/proximal LAD 100% occlusion. -- LAD fills via [id number]-azgu and uoxcq-kf-tcuw collaterals. -- Mid circumflex 40%-50%. -- Dominant RCA. * Placed back on beta-blockade * Recent echo done on 08/21 showing preserved EF of 55 to 60% * Not candidate for ICD given active infection * This was discussed with Dr. Rodriguez who reviewed her rhythm strip with me. He believes it to be more artifact as he suspects there is underlying P waves but difficult to confirm. At any rate, he would not recommend anything other than placing her back on her beta-blockade (5) Liver abscess: Plan: * Patient with known liver abscess secondary to gallstone erosion requiring recent hospitalization at [place] * Spoke with GI, not candidate for IR given size and abscess not walled off * Seen by ID at [place] who recommended IV ertapenem. Was to continue through at least 09/29 with follow-up imaging to determine total length of treatment. There was a miscommunication upon discharge from the SNF. Patient had a follow-up CT scan and 1 of 2 abscesses resolved. The other smaller in size b ut persistent. ID wanted an additional 3 weeks of IV antibiotics with follow- up imaging to trend but inadvertently, antibiotics were stopped and PICC line removed * Back on ertapenem * Discussed with Brittany (medical office secretary for established infectious disease provider) who reports recommendations are for a minimum of 3 weeks of ertapenem with follow-up CT scan to determine total length of treatment. Patient will need follow-up imaging to determine if longer course required. Already established with ID (awilda) * Case management on board and has reached out to home health agencies who can start IV antibiotic therapy no sooner than Friday * Patient will need a PICC line but awaiting negative blood cultures to ensure not bacteremic or Fungemic given presenting hypotension (consent obtained and on chart). BD showing NGTD but since cant not faciltate D/C prior to Friday, will await placing picc. * Can consider potential discharge Friday with IV antibiotics (6) Fungemia: Plan: * Patient with Rae albicans fungemia during recent hospitalization * Completed Diflucan through 09/11 * Given acute hypotension, fungal blood cultures repeated and pending (7) Coronary artery disease: Plan: * Patient with known CAD. Cath 02/19 with proximal LAD 100% blockage with filling via left to left and right to left collaterals * Metoprolol held upfront given hypotension but since resumed given improved BP. Patient's blood pressure did not; however, tolerate the 150 mg dose. With review of old records, she has hypotension with this dose in the past. She has been placed back on metoprolol at 75 mg and seems to be tolerating this well * Continue aspirin and statin therapy (8) Rheumatoid arthritis: Plan: * Hold methotrexate given liver abscess and hypotension without other evidence of sepsis-- as this will only potentiate her immunocompromise state * Would remain off of this medication until cleared by ID Plan: CODE STATUS: Full code. Discussed with patient Filiberto for DVT prophylaxis Plan of care discussed with Dr. Latif. Further orders as warranted. Admission and Anticipated Discharge Date Admission Date: October 17, 2021 Subjective Patient seen on daily rounds today. Overall she vocalizes no complaints or concerns. Denies fevers, chills, chest pain, shortness of breath, abdominal pain, nausea or vomiting. Her mentation seems improved today. She is answering all questions appropriately. Nursing voices no complaints or concerns. BP was slightly low this morning and she seems intolerant to the full 150 mg of metoprolol (which she was prescribed prior to hospitalization). In review of her old records, it does seem that this has caused blood pressure issues for her in the past. Was given 75 mg this morning and her blood pressure has been stable at 117/72. Heart rate 62. Review of Systems Review of Systems: All systems reviewed and are unremarkable except as noted in HPI and below Denies fevers, chills, headache, nasal congestion, sore throat, cough, chest pain, shortness of breath, palpitations, orthopnea, PND, abdominal pain, nausea, vomiting, diarrhea, constipation, dysuria, hematuria, frequency, back pain, joint pain or swelling, easy bruising or bleeding, skin lesions or rashes. Physical Exam Physical Exam: General: Resting comfortably in her hospital bed. NAD. HEENT: Head is AT/NC. Buccal mucosa is moist and pink Neck: No JVD. Negative hepatojugular reflex Cardiac: RRR without M/G/R Lungs: Speaking full sentences on ambient air. Normal respiratory effort. She does have mid to end expiratory wheezes at the bases with questionable Rales Abdomen: Normoactive X4. Soft and nontender in all quadrants. Extremities: Trace pitting edema Neuro: A&O X4. Cranial nerves II through XII are grossly intact. No focal neuro deficits Skin: No obvious skin lesions or rashes Psych: Appropriate affect. Pleasant and cooperative Results & Data Results & Data ([facility]) Vital Signs (Past 12 Hours) Vital Signs Temp Pulse Resp BP Pulse Ox 10/19/21 06:20 60 97/50 L 10/19/21 06:06 63 123/65 10/19/21 04:13 57 L 83/57 L 10/19/21 03:59 36.6 C 53 L 16 90/60 L 97 Laboratory Results 10/19/21 05:40 10/19/21 07:21 PG Care Time/CCT Total # of Minutes Spent Total Time Spent with Patient: Total time spent is greater than 50% in coordination of care (as documented) at patient's floor/unit and/or counseling patient: Coding Level of Care Code 84825 Subseq Hosp Care Lvl 2 Diagnoses Acute hypotension I95.9 Delirium R41.0 V-tach I47.2 Liver abscess K75.0 Fungemia B49 Coronary artery disease I25.10 Rheumatoid arthritis M06.9 Volume overload E87.70
[2021-10-19] MEDS ORDERED: LEVALBUTEROL HCL 0.63 MG/3 ML NEB NEB STA (10:06)
--- NOTE | 2021-10-19 10:22 | XRay Report ---
SINGLE VIEW CHEST CLINICAL HISTORY: Dyspnea FINDINGS: An AP, portable, upright chest radiograph is compared to study dated 10/17/2021 and correlat ed with chest CT dated 08/24/2021. The heart is mildly enlarged. The pulmonary vasculature is noncong ested There is mild bibasilar atelectasis. The lungs and pleural spaces are otherwise clear. No pneum othorax is seen. The skeletal structures are osteopenic. A subacute appearing left third rib fracture is again noted. 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 A catheter is partially imaged in th e right upper quadrant. IMPRESSION: 1. Cardiomegaly with no acute cardiopulmonary abnormality. 2. Subacute appearing left 3rd rib fracture is again noted. ACT 112: Negative or not required by law. Electronically signed by: Samm Ferrer M.D. 10/19/2021 10:21 AM
[2021-10-19] MEDS: METOPROLOL TARTRATE 25 MG TAB PO SCH ×2 (10:31→20:19)
[2021-10-19 12:07] LABS: Influenza A virus by PCR Negative (Neg); Influenza B virus by PCR Negative (Neg); RSV by PCR Negative (Neg); SARS CoV2 RNA(COVID-19) InHosp NEGATIVE (Negative)
[2021-10-19] MEDS ORDERED: LEVALBUTEROL HCL 0.63 MG/3 ML NEB NEB PRN (16:15)
[2021-10-19] MEDS ORDERED: FUROSEMIDE INJ 20 MG/2 ML VIAL IV ONE (18:05)
[2021-10-19] MEDS: FLUCONAZOLE 200 MG/100 ML BAG IV SCH ×2 (18:48→20:18)
[2021-10-19] MEDS: ERTAPENEM SODIUM 1,000 MG in SYRINGE 0 ML IV SCH (18:49)
[2021-10-19] MEDS: MONTELUKAST SODIUM 10 MG TABLET PO SCH (20:19)
[2021-10-19] MEDS: NORTRIPTYLINE HCL 25 MG CAP PO SCH (20:20)
[2021-10-20 05:35] LABS: Basophils # (auto) 0.01 K/uL (0-0.2); Basophils % (auto) 0.2 %; Eosinophils # (auto) 0.24 K/uL (0-0.5); Hematocrit (blood only) 29.5 % (37-47); Hemoglobin 9.1 g/dL (12.0-16.0); Immature Granulocytes # (auto) 0.01 K/uL (0.00-0.02); Immature Granulocytes % (auto) 0.2 %; Lymphocytes # (auto) 1.96 K/uL (1.2-3.4); Lymphocytes % (auto) 32.9 %; Mean Corpuscular Hemoglobin 32.3 pg (25-34); Mean Corpuscular Hgb Conc 30.8 g/dL (32-36); Mean Corpuscular Volume 104.6 fL (80-100); Mean Platelet Volume 10.1 fL (7.4-10.4); Monocytes # (auto) 0.36 K/uL (0.11-0.59); Monocytes % (auto) 6.1 %; Neutrophils # (auto) 3.37 K/uL (1.4-6.5); Neutrophils % (auto) 56.6 %; Platelet Count 209 K/uL (130-400); RDW Coefficient of Variation 19.3 % (11.5-14.5); RDW Standard Deviation 72.6 fL (36.4-46.3); Red Blood Count 2.82 M/uL (4.2-5.4); White Blood Count 5.95 K/uL (4.8-10.8)
[2021-10-20 06:03] LABS: Albumin Globulin Ratio 0.8 (0.9-2); Albumin Level 2.3 gm/dl (3.4-5.0); BUN Creatinine Ratio 8.3 (10-20); Bilirubin,Total 0.6 mg/dl (0.2-1.0); Creatinine Clr Calc Pharmacy 87.5 ml/min; Est GFR (Non-African American) 100.1 ml/min; Globulin 2.9 gm/dl (2.5-4.0); Magnesium 1.3 mg/dl (1.7-2.4); Potassium 3.1 mmol/L (3.5-5.1); Total Protein 5.2 gm/dl (6.0-8.3)
[2021-10-20] MEDS: LEVOTHYROXINE SODIUM 88 MCG TABLET PO SCH (06:35)
[2021-10-20] MEDS: THIAMINE HCL 100 MG TAB PO SCH (08:11)
[2021-10-20] MEDS: MAGNESIUM OXIDE 400 MG TAB PO SCH ×2 (08:11→22:01)
[2021-10-20] MEDS: NORTRIPTYLINE HCL 10 MG CAP PO SCH (08:11)
[2021-10-20] MEDS: ENOXAPARIN INJ 40 MG/0.4 ML SYR SQ SCH (08:11)
[2021-10-20] MEDS: ATORVASTATIN 40 MG TAB PO SCH (08:11)
[2021-10-20] MEDS: ASPIRIN 81 MG ECTAB PO SCH (08:12)
[2021-10-20] MEDS: FOLIC ACID 1 MG TAB PO SCH (08:12)
[2021-10-20] MEDS: ESCITALOPRAM OXALATE 20 MG TAB PO SCH (08:12)
[2021-10-20] MEDS: METOPROLOL TARTRATE 25 MG TAB PO SCH ×2 (08:12→22:02)
[2021-10-20] MEDS: POTASSIUM CHLORIDE CRTAB 20 MEQ TABCR PO SCH ×3 (08:13→22:01)
--- NOTE | 2021-10-20 17:20 | Hospitalist Progress Note ---
Date of Service October 20, 2021 Assessment & Plan (1) Volume overload: Plan: * No evidence of fulminant CHF and no history of CHF but seems to be slightly volume overloaded on 10/19 * Patient did receive aggressive hydration upfront given her hypotension--her fluid balance is +7.4 L * Patient with end expiratory wheezes and mild pitting edema although not requiring any supplemental oxygen * Chest x-ray shows no significant pulmonary vascular congestion. BNP is sligh tly elevated at 690 but not concerningly so. Her hemoglobin has dropped and is likely dilutional * Her BP has remained stable. Will give 1 dose of IV Lasix now and follow clinically (2) Acute hypotension: Plan: Resolved * Presenting BP 89/57 * afebrile, without leukocytosis, lactic acid level normal * Known liver abscess for which she is to be on IV antibiotics. 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 Patient does not seem to tolerate the 150 mg dose of metoprolol as prescribed prior to hospitalization and in review of records, she has a history of hypotension with this dose. I have cut this in half * Blood cultures including fungal blood cultures ordered and pending * Urine culture showing no growth * Suspect underlying cause is known liver abscess * Although ESR and CRP are elevated at 52/2.17, they are downtrending from 84/4.2 (3) Delirium: Plan: * Patient with waxing and waning delirium although does answer questions appropriately * In talking with infectious disease, this was noted when she spoke to the patient on the phone days ago * VBG showing no hypercapnia * CT of the head normal * Ammonia level normal * Suspect infectious encephalopathy * Improving now that she is back on IV antibiotics; * Patient has been waxing and waning over the past 24 hours. * will continue current antibiotics. (4) V-tach: Plan: * There was concern for 10-second run of nonsustained V. tach in the overnight hours on 10/18 * Patient with known underlying heart disease for which she follows [facility] -- Cardiac Catheterization 02/22/2021: --Ostial/proximal LAD 100% occlusion. -- LAD fills via [id number] and wgcex-rj-fldx collaterals. -- Mid circumflex 40%-50%. -- Dominant RCA. * Placed back on beta-blockade * Recent echo done on 08/21 showing preserved EF of 55 to 60% * Not candidate for ICD given active infection * This was discussed with Dr. Rodriguez who reviewed her rhythm strip with me. He believes it to be more artifact as he suspects there is underlying P waves but difficult to confirm. At any rate, he would not recommend anything other than placing her back on her beta-blockade (5) Liver abscess: Plan: * Patient with known liver abscess secondary to gallstone erosion requiring recent hospitalization at [place] * Spoke with GI, not candidate for IR given size and abscess not walled off * Seen by ID at [place] who recommended IV ertapenem. Was to continue through at least 09/29 with follow-up imaging to determine total length of treatment. There was a miscommunication upon discharge from the SNF. Patient had a follow-up CT scan and 1 of 2 abscesses resolved. The other smaller in size but persistent. ID wanted an additional 3 weeks of IV antibiotics with follow-up imaging to trend but inadvertently, antibiotics were stopped and PICC line removed * Back on ertapenem * Discussed with Brittany (wet wheeler for established infectious disease provider) who reports recommendations are for a minimum of 3 weeks of ertapenem with follow-up CT scan to determine total length of treatment. Patient will need follow-up imaging to determine if longer course required. Already established with ID (awilda) * Case management on board and has reached out to home health agencies who can start IV antibiotic therapy no sooner than Friday * Patient will need a PICC line but awaiting negative blood cultures to ensure not bacteremic or Fungemic given presenting hypotension (consent obtained and on chart). BD showing NGTD but since cant not faciltate D/C prior to Friday, will await placing picc. * Can consider potential discharge Friday with IV antibiotics (6) Fungemia: Plan: * Patient with Rae albicans fungemia during recent hospitalization * Completed Diflucan through 09/11 * Given acute hypotension, fungal blood cultures repeated and pending (7) Coronary artery disease: Plan: * Patient with known CAD. Cath 02/19 with proximal LAD 100% blockage with filling via left to left and right to left collaterals * Metoprolol held upfront given hypotension but since resumed given improved BP. Patient's blood pressure did not; however, tolerate the 150 mg dose. With review of old records, she has hypotension with this dose in the past. She has been placed back on metoprolol at 75 mg and seems to be tolerating this well * Continue aspirin and statin therapy (8) Rheumatoid arthritis: Plan: * Hold methotrexate given liver abscess and hypotension without other evidence of sepsis-- as this will only potentiate her immunocompromise state * Would remain off of this medication until cleared by ID Plan: CODE STATUS: Full code. Discussed with patient Filiberto for DVT prophylaxis Plan of care discussed with Dr. Latif. Further orders as warranted. Admission and Anticipated Discharge Date Admission Date: October 17, 2021 Subjective Patient remains confused. Her is at bedside, reports that her father had Alzheimer.. However, the patient has not had any issues with her memory prior to this admission. Review of Systems Review of Systems: Unobtainable due to cognitive status Physical Exam Physical Exam: General: Resting comfortably in her hospital bed. NAD. HEENT: Head is AT/NC. Buccal mucosa is moist and pink Neck: No JVD. Negative hepatojugular reflex Cardiac: RRR without M/G/R Lungs: Speaking full sentences on ambient air. Normal respiratory effort. She does have mid to end expiratory wheezes at the bases with questionable Rales Abdomen: Normoactive X4. Soft and nontender in all quadrants. Extremities: Trace pitting edema Neuro: A&O X4. Cranial nerves II through XII are grossly intact. No focal neuro deficits Skin: No obvious skin lesions or rashes Psych: Appropriate affect. Pleasant and cooperative Results & Data Results & Data ([facility]) Vital Signs (Past 12 Hours) Vital Signs Temp Pulse Resp BP Pulse Ox 10/20/21 16:00 37.1 C 67 20 139/83 95 10/20/21 12:00 36.7 C 72 21 132/75 96 10/20/21 08:00 36.9 C 68 20 129/71 96 PG Care Time/CCT Total # of Minutes Spent Total Time Spent with Patient: Total time spent is greater than 50% in coordination of care (as documented) at patient's floor/unit and/or counseling patient: Coding Level of Care Code 80304 Subseq Hosp Care Lvl 2 Diagnoses Volume overload E87.70 Acute hypotension I95.9 Delirium R41.0 V-tach I47.2 Liver abscess K75.0 Fungemia B49 Coronary artery disease I25.10 Rheumatoid arthritis M06.9
[2021-10-20] MEDS: FLUCONAZOLE 200 MG/100 ML BAG IV SCH ×2 (18:41→20:25)
[2021-10-20] MEDS: NORTRIPTYLINE HCL 25 MG CAP PO SCH (22:02)
[2021-10-20] MEDS: MONTELUKAST SODIUM 10 MG TABLET PO SCH (22:03)
[2021-10-20] MEDS: ERTAPENEM SODIUM 1,000 MG in SYRINGE 0 ML IV SCH ×2 (23:14→23:44)
[2021-10-21] MEDS: LEVOTHYROXINE SODIUM 88 MCG TABLET PO SCH (06:07)
[2021-10-21] MEDS: POTASSIUM CHLORIDE CRTAB 20 MEQ TABCR PO SCH (10:31)
[2021-10-21] MEDS: ASPIRIN 81 MG ECTAB PO SCH (10:31)
[2021-10-21] MEDS: MAGNESIUM OXIDE 400 MG TAB PO SCH ×2 (10:31→20:38)
[2021-10-21] MEDS: METOPROLOL TARTRATE 25 MG TAB PO SCH ×2 (10:31→20:38)
[2021-10-21] MEDS: ESCITALOPRAM OXALATE 20 MG TAB PO SCH (10:31)
[2021-10-21] MEDS: THIAMINE HCL 100 MG TAB PO SCH (10:32)
[2021-10-21] MEDS: ATORVASTATIN 40 MG TAB PO SCH (10:32)
[2021-10-21] MEDS: ENOXAPARIN INJ 40 MG/0.4 ML SYR SQ SCH (10:32)
[2021-10-21] MEDS: FOLIC ACID 1 MG TAB PO SCH (10:32)
[2021-10-21] MEDS: NORTRIPTYLINE HCL 10 MG CAP PO SCH (10:32)
[2021-10-21] MEDS: ERTAPENEM SODIUM 1,000 MG in SYRINGE 0 ML IV SCH (18:11)
[2021-10-21] MEDS: FLUCONAZOLE 200 MG/100 ML BAG IV SCH ×2 (18:11→20:37)
--- NOTE | 2021-10-21 19:56 | Hospitalist Progress Note ---
Date of Service October 21, 2021 Assessment & Plan (1) Volume overload: Plan: * No evidence of fulminant CHF and no history of CHF but seems to be slightly volume overloaded on 10/19 * Patient did receive aggressive hydration upfront given her hypotension--her fluid balance is +7.4 L * Patient with end expiratory wheezes and mild pitting edema although not requiring any supplemental oxygen * Chest x-ray shows no significant pulmonary vascular congestion. BNP is sligh tly elevated at 690 but not concerningly so. Her hemoglobin has dropped and is likely dilutional * Her BP has remained stable. will hold off futher diuretics as patient remains on room air. (2) Acute hypotension: Plan: Resolved * Presenting BP 89/57 * afebrile, without leukocytosis, lactic acid level normal * Known liver abscess for which she is to be on IV antibiotics. 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 Patient does not seem to tolerate the 150 mg dose of metoprolol as prescribed prior to hospitalization and in review of records, she has a history of hypotension with this dose. I have cut this in half * Blood cultures including fungal blood cultures ordered and pending * Urine culture showing no growth * Suspect underlying cause is known liver abscess * Although ESR and CRP are elevated at 52/2.17, they are downtrending from 84/4.2 (3) Delirium: Plan: * Patient with waxing and waning delirium although does answer questions appropriately * In talking with infectious disease, this was noted when she spoke to the patient on the phone days ago * VBG showing no hypercapnia * CT of the head normal * Ammonia level normal * Suspect infectious encephalopathy * Improving now that she is back on IV antibiotics; * Patient has been waxing and waning over the past 24 hours. * improved on 10/21 * will continue current antibiotics. (4) V-tach: Plan: * There was concern for 10-second run of nonsustained V. tach in the overnight hours on 10/18 * Patient with known underlying heart disease for which she follows [facility] -- Cardiac Catheterization 02/22/2021: --Ostial/proximal LAD 100% occlusion. -- LAD fills via nyzf-ls-inmy and rdrvu-eu-rlea collaterals. -- Mid circumflex 40%-50%. -- Dominant RCA. * Placed back on beta-blockade * Recent echo done on 08/21 showing preserved EF of 55 to 60% * Not candidate for ICD given active infection * This was discussed with Dr. Rodriguez who reviewed her rhythm strip with me. He believes it to be more artifact as he suspects there is underlying P waves but difficult to confirm. At any rate, he would not recommend anything other than placing her back on her beta-blockade (5) Liver abscess: Plan: * Patient with known liver abscess secondary to gallstone erosion requiring recent hospitalization at [place] * Spoke with GI, not candidate for IR given size and abscess not walled off * Seen by ID at [place] who recommended IV ertapenem. Was to continue through at least 09/29 with follow-up imaging to determine total length of treatment. There was a miscommunication upon discharge from the SNF. Patient had a follow-up CT scan and 1 of 2 abscesses resolved. The other smaller in size but persistent. ID wanted an additional 3 weeks of IV antibiotics with follow-up imaging to trend but inadvertently, antibiotics were stopped and PICC line removed * Back on ertapenem * Discussed with Brittany (engineering secretary for established infectious disease provider) who reports recommendations are for a minimum of 3 weeks of ertapenem with follow-up CT scan to determine total length of treatment. Patient will need follow-up imaging to determine if longer course required. Already established with ID (awilda) * Case management on board and has reached out to home health agencies who can start IV antibiotic therapy no sooner than Friday * Patient will need a PICC line but awaiting negative blood cultures to ensure not bacteremic or Fungemic given presenting hypotension (consent obtained and on chart). BD showing NGTD but since cant not faciltate D/C prior to Friday, will await placing picc. * Can consider potential discharge Friday with IV antibiotics (6) Fungemia: Plan: * Patient with Rae albicans fungemia during recent hospitalization * Completed Diflucan through 09/11 * Given acute hypotension, fungal blood cultures repeated and pending (7) Coronary artery disease: Plan: * Patient with known CAD. Cath 6/21 with proximal LAD 100% blockage with filling via left to left and right to left collaterals * Metoprolol held upfront given hypotension but since resumed given improved BP. Patient's blood pressure did not; however, tolerate the 150 mg dose. With review of old records, she has hypotension with this dose in the past. She has been placed back on metoprolol at 75 mg and seems to be tolerating this well * Continue aspirin and statin therapy (8) Rheumatoid arthritis: Plan: * Hold methotrexate given liver abscess and hypotension without other evidence of sepsis-- as this will only potentiate her immunocompromise state * Would remain off of this medication until cleared by ID Plan: CODE STATUS: Full code. Discussed with patient Filiberto for DVT prophylaxis Plan of care discussed with Dr. Latif. Further orders as warranted. Admission and Anticipated Discharge Date Admission Date: October 17, 2021 Subjective Patient resting comfortably. Review of Systems Review of Systems: All systems reviewed & are unremarkable except as noted in HPI & below Physical Exam Physical Exam: General: Resting comfortably in her hospital bed. NAD. HEENT: Head is AT/NC. Buccal mucosa is moist and pink Neck: No JVD. Negative hepatojugular reflex Cardiac: RRR without M/G/R Lungs: Speaking full sentences on ambient air. Normal respiratory effort. She does have mid to end expiratory wheezes at the bases with questionable Rales Abdomen: Normoactive X4. Soft and nontender in all quadrants. Extremities: Trace pitting edema Neuro: A&O X4. Cranial nerves II through XII are grossly intact. No focal neuro deficits Skin: No obvious skin lesions or rashes Psych: Appropriate affect. Pleasant and cooperative [id number] Results & Data Results & Data ([facility]) Vital Signs (Past 12 Hours) Vital Signs Temp Pulse Resp BP Pulse Ox 10/21/21 14:50 36.6 C 69 16 115/59 L 97 10/21/21 08:18 36.6 C 72 16 113/60 96 PG Care Time/CCT Total # of Minutes Spent Total Time Spent with Patient: Total time spent is greater than 50% in coordination of care (as documented) at patient's floor/unit and/or counseling patient: Coding Level of Care Code 22199 Subseq Hosp Care Lvl 2 Diagnoses Volume overload E87.70 Acute hypotension I95.9 Delirium R41.0 V-tach I47.2 Liver abscess K75.0 Fungemia B49 Coronary artery disease I25.10 Rheumatoid arthritis M06.9 Time Spent (min) 25
[2021-10-21] MEDS: MONTELUKAST SODIUM 10 MG TABLET PO SCH (20:38)
[2021-10-21] MEDS: NORTRIPTYLINE HCL 25 MG CAP PO SCH (20:39)
[2021-10-22] MEDS: LEVOTHYROXINE SODIUM 88 MCG TABLET PO SCH (05:20)
[2021-10-22 06:38] LABS: Hematocrit (blood only) 28.2 % (37-47); Hemoglobin 8.7 g/dL (12.0-16.0); Mean Corpuscular Hemoglobin 32.1 pg (25-34); Mean Corpuscular Hgb Conc 30.9 g/dL (32-36); Mean Corpuscular Volume 104.1 fL (80-100); Mean Platelet Volume 9.9 fL (7.4-10.4); Platelet Count 210 K/uL (130-400); RDW Coefficient of Variation 19.6 % (11.5-14.5); RDW Standard Deviation 74.1 fL (36.4-46.3); Red Blood Count 2.71 M/uL (4.2-5.4); White Blood Count 7.79 K/uL (4.8-10.8)
[2021-10-22 06:57] LABS: BUN Creatinine Ratio 11.5 (10-20); C Reactive Protein 7.51 mg/dl (0-0.5); Calcium 7.9 mg/dl (8.5-10.1); Creatinine Clr Calc Pharmacy 80.9 ml/min; Est GFR (Non-African American) 97.5 ml/min; Potassium 3.5 mmol/L (3.5-5.1)
[2021-10-22] MEDS: ENOXAPARIN INJ 40 MG/0.4 ML SYR SQ SCH (08:56)
[2021-10-22] MEDS: FOLIC ACID 1 MG TAB PO SCH (08:57)
[2021-10-22] MEDS: ASPIRIN 81 MG ECTAB PO SCH (08:57)
[2021-10-22] MEDS: ATORVASTATIN 40 MG TAB PO SCH (08:57)
[2021-10-22] MEDS: ESCITALOPRAM OXALATE 20 MG TAB PO SCH (08:57)
[2021-10-22] MEDS: NORTRIPTYLINE HCL 10 MG CAP PO SCH (08:58)
[2021-10-22] MEDS: MAGNESIUM OXIDE 400 MG TAB PO SCH ×2 (08:58→20:18)
[2021-10-22] MEDS: THIAMINE HCL 100 MG TAB PO SCH (08:58)
[2021-10-22] MEDS: METOPROLOL TARTRATE 25 MG TAB PO SCH ×2 (09:03→20:18)
[2021-10-22] MEDS ORDERED: LACTATED RINGER'S 1,000 ML IV SCH (17:15)
[2021-10-22] MEDS: FLUCONAZOLE 200 MG/100 ML BAG IV SCH ×2 (17:40→20:15)
[2021-10-22] MEDS: ERTAPENEM SODIUM 1,000 MG in SYRINGE 0 ML IV SCH (17:45)
[2021-10-22] MEDS: NORTRIPTYLINE HCL 25 MG CAP PO SCH (20:18)
[2021-10-22] MEDS: MONTELUKAST SODIUM 10 MG TABLET PO SCH (20:18)
--- NOTE | 2021-10-22 21:03 | Hospitalist Progress Note ---
Date of Service October 22, 2021 Assessment & Plan (1) Volume overload: Plan: * No evidence of fulminant CHF and no history of CHF but seems to be slightly volume overloaded on 10/19 * Patient did receive aggressive hydration upfront given her hypotension--her fluid balance is +7.4 L * Patient with end expiratory wheezes and mild pitting edema although not requiring any supplemental oxygen * Chest x-ray shows no significant pulmonary vascular congestion. BNP is sligh tly elevated at 690 but not concerningly so. Her hemoglobin has dropped and is likely dilutional * Her BP has remained stable. will hold off futher diuretics as patient remains on room air. (2) Acute hypotension: Plan: Resolved * Presenting BP 89/57 * afebrile, without leukocytosis, lactic acid level normal * Known liver abscess for which she is to be on IV antibiotics. 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 Patient does not seem to tolerate the 150 mg dose of metoprolol as prescribed prior to hospitalization and in review of records, she has a history of hypotension with this dose. I have cut this in half * Blood cultures including fungal blood cultures ordered and pending * Urine culture showing no growth * Suspect underlying cause is known liver abscess * Although ESR and CRP are elevated at 52/2.17, they are downtrending from 84/4.2 (3) Delirium: Plan: * Patient with waxing and waning delirium although does answer questions appropriately * In talking with infectious disease, this was noted when she spoke to the patient on the phone days ago * VBG showing no hypercapnia * CT of the head normal * Ammonia level normal * Suspect infectious encephalopathy * Improving now that she is back on IV antibiotics; * Patient has been waxing and waning over the past 24 hours. * On10/22, patient again is confused. Has been having a good day and a bad day every other day. * Appeats that she will likely require placement. * will continue current antibiotics. (4) V-tach: Plan: * There was concern for 10-second run of nonsustained V. tach in the overnight hours on 10/18 * Patient with known underlying heart disease for which she follows [facility] -- Cardiac Catheterization 02/22/2021: --Ostial/proximal LAD 100% occlusion. -- LAD fills via [id number] and yyodz-kz-xojm collaterals. -- Mid circumflex 40%-50%. -- Dominant RCA. * Placed back on beta-blockade * Recent echo done on 08/21 showing preserved EF of 55 to 60% * Not candidate for ICD given active infection * This was discussed with Dr. Rodriguez who reviewed her rhythm strip with me. He believes it to be more artifact as he suspects there is underlying P waves but difficult to confirm. At any rate, he would not recommend anything other than placing her back on her beta-blockade (5) Liver abscess: Plan: * Patient with known liver abscess secondary to gallstone erosion requiring recent hospitalization at [place] * Spoke with GI, not candidate for IR given size and abscess not walled off * Seen by ID at [place] who recommended IV ertapenem. Was to continue through at least 09/29 with follow-up imaging to determine total length of treatment. There was a miscommunication upon discharge from the SNF. Patient had a follow-up CT scan and 1 of 2 abscesses resolved. The other smaller in size but persistent. ID wanted an additional 3 weeks of IV antibiotics with follow-up imaging to trend but inadvertently, antibiotics were stopped and PICC line removed * Back on ertapenem * Discussed with Brittany (board of education secretary for established infectious disease provider) who reports recommendations are for a minimum of 3 weeks of ertapenem with follow-up CT scan to determine total length of treatment. Patient will need follow-up imaging to determine if longer course required. Already established with ID ([email or web address]) * Case management on board and has reached out to home health agencies who can start IV antibiotic therapy no sooner than Friday * Patient will need a PICC line but awaiting negative blood cultures to ensure not bacteremic or Fungemic given presenting hypotension (consent obtained and on chart). BD showing NGTD but since cant not faciltate D/C prior to Friday, will await placing picc. * Can consider potential discharge Friday with IV antibiotics (6) Fungemia: Plan: * Patient with Rae albicans fungemia during recent hospitalization * Completed Diflucan through 09/11 * Given acute hypotension, fungal blood cultures repeated and pending (7) Coronary artery disease: Plan: * Patient with known CAD. Cath 02/19 with proximal LAD 100% blockage with filling via left to left and right to left collaterals * Metoprolol held upfront given hypotension but since resumed given improved BP. Patient's blood pressure did not; however, tolerate the 150 mg dose. With review of old records, she has hypotension with this dose in the past. She has been placed back on metoprolol at 75 mg and seems to be tolerating this well * Continue aspirin and statin therapy (8) Rheumatoid arthritis: Plan: * Hold methotrexate given liver abscess and hypotension without other evidence of sepsis-- as this will only potentiate her immunocompromise state * Would remain off of this medication until cleared by ID Plan: CODE STATUS: Full code. Discussed with patient Filiberto for DVT prophylaxis Plan of care discussed with Dr. Latif. Further orders as warranted. Admission and Anticipated Discharge Date Admission Date: October 17, 2021 Subjective Patient appears confused today. Review of Systems Review of Systems: All systems reviewed & are unremarkable except as noted in HPI & below Physical Exam Physical Exam: General: Resting comfortably in her hospital bed. NAD. HEENT: Head is AT/NC. Buccal mucosa is moist and pink Neck: No JVD. Negative hepatojugular reflex Cardiac: RRR without M/G/R Lungs: Speaking full sentences on ambient air. Normal respiratory effort. She does have mid to end expiratory wheezes at the bases with questionable Rales Abdomen: Normoactive X4. Soft and nontender in all quadrants. Extremities: Trace pitting edema Neuro: A&O X4. Cranial nerves II through XII are grossly intact. No focal neuro deficits Skin: No obvious skin lesions or rashes Psych: Appropriate affect. Pleasant and cooperative [id number] Results & Data Results & Data ([facility]) Vital Signs (Past 12 Hours) Vital Signs Temp Pulse Resp BP Pulse Ox 10/22/21 16:09 36.6 C 73 16 99/66 L 96 PG Care Time/CCT Total # of Minutes Spent Total Time Spent with Patient: Total time spent is greater than 50% in coordination of care (as documented) at patient's floor/unit and/or counseling patient: Coding Level of Care Code 74015 Subseq Hosp Care Lvl 2 Diagnoses Volume overload E87.70 Acute hypotension I95.9 Delirium R41.0 V-tach I47.2 Liver abscess K75.0 Fungemia B49 Coronary artery disease I25.10 Rheumatoid arthritis M06.9 Time Spent (min) 25
[2021-10-23] MEDS: LEVOTHYROXINE SODIUM 88 MCG TABLET PO SCH (06:15)
[2021-10-23] MEDS: ENOXAPARIN INJ 40 MG/0.4 ML SYR SQ SCH (08:53)
[2021-10-23] MEDS: FOLIC ACID 1 MG TAB PO SCH (08:54)
[2021-10-23] MEDS: MAGNESIUM OXIDE 400 MG TAB PO SCH ×2 (08:54→21:19)
[2021-10-23] MEDS: ATORVASTATIN 40 MG TAB PO SCH (08:54)
[2021-10-23] MEDS: ESCITALOPRAM OXALATE 20 MG TAB PO SCH (08:54)
[2021-10-23] MEDS: METOPROLOL TARTRATE 25 MG TAB PO SCH ×2 (08:54→21:20)
[2021-10-23] MEDS: ASPIRIN 81 MG ECTAB PO SCH (08:55)
[2021-10-23] MEDS: NORTRIPTYLINE HCL 10 MG CAP PO SCH (08:55)
[2021-10-23] MEDS: THIAMINE HCL 100 MG TAB PO SCH (08:55)
[2021-10-23] MEDS: FLUCONAZOLE 200 MG/100 ML BAG IV SCH ×2 (17:30→19:18)
[2021-10-23] MEDS: ERTAPENEM SODIUM 1,000 MG in SYRINGE 0 ML IV SCH (17:30)
--- NOTE | 2021-10-23 20:48 | Hospitalist Progress Note ---
Date of Service October 23, 2021 Assessment & Plan (1) Volume overload: Plan: * No evidence of fulminant CHF and no history of CHF but seems to be slightly volume overloaded on 10/19 * Patient did receive aggressive hydration upfront given her hypotension--her fluid balance is +7.4 L * Patient with end expiratory wheezes and mild pitting edema although not requiring any supplemental oxygen * Chest x-ray shows no significant pulmonary vascular congestion. BNP is sligh tly elevated at 690 but not concerningly so. Her hemoglobin has dropped and is likely dilutional * Her BP has remained stable. will hold off futher diuretics as patient remains on room air. (2) Acute hypotension: Plan: Resolved * Presenting BP 89/57 * afebrile, without leukocytosis, lactic acid level normal * Known liver abscess for which she is to be on IV antibiotics. 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 Patient does not seem to tolerate the 150 mg dose of metoprolol as prescribed prior to hospitalization and in review of records, she has a history of hypotension with this dose. I have cut this in half * Blood cultures including fungal blood cultures ordered and pending * Urine culture showing no growth * Suspect underlying cause is known liver abscess * Although ESR and CRP are elevated at 52/2.17, they are downtrending from 84/4.2 (3) Delirium: Plan: * Patient with waxing and waning delirium although does answer questions appropriately * In talking with infectious disease, this was noted when she spoke to the patient on the phone days ago * VBG showing no hypercapnia * CT of the head normal * Ammonia level normal * Suspect infectious encephalopathy * Improving now that she is back on IV antibiotics; * Patient has been waxing and waning over the past 24 hours. * On10/23, patient again is confused. No focal findings. Has been having a good day and a bad day every other day. * Appears that she will likely require placement. * will continue current antibiotics. (4) V-tach: Plan: * There was concern for 10-second run of nonsustained V. tach in the overnight hours on 10/18 * Patient with known underlying heart disease for which she follows [facility] -- Cardiac Catheterization 02/22/2021: --Ostial/proximal LAD 100% occlusion. -- LAD fills via vbwu-kd-[id number] and pjyis-ft-klvl collaterals. -- Mid circumflex 40%-50%. -- Dominant RCA. * Placed back on beta-blockade * Recent echo done on 08/21 showing preserved EF of 55 to 60% * Not candidate for ICD given active infection * This was discussed with Dr. Rodriguez who reviewed her rhythm strip with me. He believes it to be more artifact as he suspects there is underlying P waves but difficult to confirm. At any rate, he would not recommend anything other than placing her back on her beta-blockade (5) Liver abscess: Plan: * Patient with known liver abscess secondary to gallstone erosion requiring recent hospitalization at [place] * Spoke with GI, not candidate for IR given size and abscess not walled off * Seen by ID at [place] who recommended IV ertapenem. Was to continue through at least 09/29 with follow-up imaging to determine total length of treatment. There was a miscommunication upon discharge from the SNF. Patient had a follow-up CT scan and 1 of 2 abscesses resolved. The other smaller in size but persistent. ID wanted an additional 3 weeks of IV antibiotics with follow-up imaging to trend but inadvertently, antibiotics were stopped and PICC line removed * Back on ertapenem * Discussed with Brittany (personal secretary for established infectious disease provider) who reports recommendations are for a minimum of 3 weeks of ertapenem with follow-up CT scan to determine total length of treatment. Patient will need follow-up imaging to determine if longer course required. Already established with ID arvind) * Case management on board and has reached out to home health agencies who can start IV antibiotic therapy no sooner than Friday * Patient will need a PICC line but awaiting negative blood cultures to ensure not bacteremic or Fungemic given presenting hypotension (consent obtained and on chart). BD showing NGTD but since cant not faciltate D/C prior to Friday, will await placing picc. * Can consider potential discharge Friday with IV antibiotics (6) Fungemia: Plan: * Patient with Rae albicans fungemia during recent hospitalization * Completed Diflucan through 09/11 * Given acute hypotension, fungal blood cultures repeated and pending (7) Coronary artery disease: Plan: * Patient with known CAD. Cath 02/19 with proximal LAD 100% blockage with filling via left to left and right to left collaterals * Metoprolol held upfront given hypotension but since resumed given improved BP. Patient's blood pressure did not; however, tolerate the 150 mg dose. With review of old records, she has hypotension with this dose in the past. She has been placed back on metoprolol at 75 mg and seems to be tolerating this well * Continue aspirin and statin therapy (8) Rheumatoid arthritis: Plan: * Hold methotrexate given liver abscess and hypotension without other evidence of sepsis-- as this will only potentiate her immunocompromise state * Would remain off of this medication until cleared by ID Plan: CODE STATUS: Full code. Discussed with patient Filiberto for DVT prophylaxis Plan of care discussed with Dr. Latif. Further orders as warranted. Admission and Anticipated Discharge Date Admission Date: October 17, 2021 Subjective Patient is confused. Review of Systems Review of Systems: Unobtainable due to cognitive status Physical Exam Physical Exam: General: Resting comfortably in her hospital bed. NAD. HEENT: Head is AT/NC. Buccal mucosa is moist and pink Neck: No JVD. Negative hepatojugular reflex Cardiac: RRR without M/G/R Lungs: Speaking full sentences on ambient air. Normal respiratory effort. She does have mid to end expiratory wheezes at the bases with questionable Rales Abdomen: Normoactive X4. Soft and nontender in all quadrants. Extremities: Trace pitting edema Neuro: A&O X4. Cranial nerves II through XII are grossly intact. No focal neuro deficits Skin: No obvious skin lesions or rashes Psych: Appropriate affect. Pleasant and cooperative [id number] Results & Data Results & Data ([facility]) Vital Signs (Past 12 Hours) Vital Signs Temp Pulse Pulse Resp BP BP Pulse Ox 10/23/21 15:15 36.8 C 69 18 107/65 95 10/23/21 09:00 80 110/75 95 PG Care Time/CCT Total # of Minutes Spent Total Time Spent with Patient: Total time spent is greater than 50% in coordination of care (as documented) at patient's floor/unit and/or counseling patient: Coding Level of Care Code 39833 Subseq Hosp Care Lvl 2 Diagnoses Volume overload E87.70 Acute hypotension I95.9 Delirium R41.0 V-tach I47.2 Liver abscess K75.0 Fungemia B49 Coronary artery disease I25.10 Rheumatoid arthritis M06.9
[2021-10-23] MEDS: NORTRIPTYLINE HCL 25 MG CAP PO SCH (21:19)
[2021-10-23] MEDS: MONTELUKAST SODIUM 10 MG TABLET PO SCH (21:20)
[2021-10-24] MEDS: LEVOTHYROXINE SODIUM 88 MCG TABLET PO SCH (05:45)
[2021-10-24 08:12] LABS: Hematocrit (blood only) 27.8 % (37-47); Hemoglobin 8.6 g/dL (12.0-16.0); Mean Corpuscular Hemoglobin 32.5 pg (25-34); Mean Corpuscular Hgb Conc 30.9 g/dL (32-36); Mean Corpuscular Volume 104.9 fL (80-100); Platelet Count 154 K/uL (130-400); RDW Coefficient of Variation 19.2 % (11.5-14.5); RDW Standard Deviation 73.2 fL (36.4-46.3); Red Blood Count 2.65 M/uL (4.2-5.4); White Blood Count 4.87 K/uL (4.8-10.8)
[2021-10-24 08:42] LABS: BUN Creatinine Ratio 19.5 (10-20); Calcium 7.7 mg/dl (8.5-10.1); Creatinine Clr Calc Pharmacy 101.8 ml/min; Est GFR (African American) 122.2 ml/min; Est GFR (Non-African American) 105.4 ml/min; Potassium 3.2 mmol/L (3.5-5.1)
[2021-10-24] MEDS: ESCITALOPRAM OXALATE 20 MG TAB PO SCH (08:49)
[2021-10-24] MEDS: METOPROLOL TARTRATE 25 MG TAB PO SCH ×2 (08:49→20:21)
[2021-10-24] MEDS: FOLIC ACID 1 MG TAB PO SCH (08:49)
[2021-10-24] MEDS: NORTRIPTYLINE HCL 10 MG CAP PO SCH (08:50)
[2021-10-24] MEDS: ATORVASTATIN 40 MG TAB PO SCH (08:50)
[2021-10-24] MEDS: MAGNESIUM OXIDE 400 MG TAB PO SCH ×2 (08:50→20:20)
[2021-10-24] MEDS: ASPIRIN 81 MG ECTAB PO SCH (08:50)
[2021-10-24] MEDS: THIAMINE HCL 100 MG TAB PO SCH (08:51)
[2021-10-24] MEDS: ENOXAPARIN INJ 40 MG/0.4 ML SYR SQ SCH (08:51)
--- NOTE | 2021-10-24 14:02 | CT Scan Report ---
CT head/brain wo con CLINICAL HISTORY: 71 years-old Female with altered mental status. Acutely altered mental status TECHNIQUE: Multiple axial CT images of the head were obtained without contrast. A dose lowering tech nique was utilized adhering to the principles of ALARA. CT DOSE: 537.48 mGy.cm COMPARISON: Head CT 10/17/2021 FINDINGS: No acute intracranial hemorrhage, midline shift, intracranial mass, hydrocephalus, territorial ischem ia or abnormal extra-axial collection. Age-related involutional changes. Mild white matter hypodensit ies suggest chronic microvascular ischemic disease. Cerebral vascular calcifications. The calvarium is intact. Prior bilateral lens repair. The paranasal sinuses, mastoid air cells, and m iddle ear cavities are clear. IMPRESSION: No acute intracranial abnormality. ACT 112: Negative or not required by law. The above report was generated using voice recognition software. It may contain grammatical, syntax o r spelling errors. Electronically signed by: Greyson Merchant M.D. 10/24/2021 2:01 PM
[2021-10-24] MEDS: POTASSIUM CHLORIDE CRTAB 20 MEQ TABCR PO SCH ×3 (14:16→22:23)
[2021-10-24] MEDS: FLUCONAZOLE 200 MG/100 ML BAG IV SCH ×2 (18:05→19:06)
[2021-10-24] MEDS: ERTAPENEM SODIUM 1,000 MG in SYRINGE 0 ML IV SCH (18:05)
[2021-10-24] MEDS: MONTELUKAST SODIUM 10 MG TABLET PO SCH (20:22)
[2021-10-24] MEDS: NORTRIPTYLINE HCL 25 MG CAP PO SCH (20:23)
--- NOTE | 2021-10-24 20:30 | Hospitalist Progress Note ---
Date of Service October 24, 2021 Assessment & Plan (1) Volume overload: Plan: * No evidence of fulminant CHF and no history of CHF but seems to be slightly volume overloaded on 10/19 * Patient did receive aggressive hydration upfront given her hypotension--her fluid balance is +7.4 L * Patient with end expiratory wheezes and mild pitting edema although not requiring any supplemental oxygen * Chest x-ray shows no significant pulmonary vascular congestion. BNP is sligh tly elevated at 690 but not concerningly so. Her hemoglobin has dropped and is likely dilutional * Her BP has remained stable. will hold off futher diuretics as patient remains on room air. * Pending placement (2) Acute hypotension: Plan: Resolved * Presenting BP 89/57 * afebrile, without leukocytosis, lactic acid level normal * Known liver abscess for which she is to be on IV antibiotics. 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 Patient does not seem to tolerate the 150 mg dose of metoprolol as prescribed prior to hospitalization and in review of records, she has a history of hypotension with this dose. I have cut this in half * Blood cultures including fungal blood cultures ordered and pending * Urine culture showing no growth * Suspect underlying cause is known liver abscess * Although ESR and CRP are elevated at 52/2.17, they are downtrending from 84/4.2 (3) Delirium: Plan: * Patient with waxing and waning delirium although does answer questions appropriately * In talking with infectious disease, this was noted when she spoke to the patient on the phone days ago * VBG showing no hypercapnia * CT of the head normal * Ammonia level normal * Suspect infectious encephalopathy * Improving now that she is back on IV antibiotics; * Patient has been waxing and waning over the past 24 hours. * On10/23, patient again is confused. No focal findings. Has been having a good day and a bad day every other day. * Appears that she will likely require placement. * will continue current antibiotics. * repeated CT scan of head which was negative. (4) V-tach: Plan: * There was concern for 10-second run of nonsustained V. tach in the overnight hours on 10/18 * Patient with known underlying heart disease for which she follows [facility] -- Cardiac Catheterization 02/22/2021: --Ostial/proximal LAD 100% occlusion. -- LAD fills via hwek-qp-bsyi and voiqy-ps-lkih collaterals. -- Mid circumflex 40%-50%. -- Dominant RCA. * Placed back on beta-blockade * Recent echo done on 08/21 showing preserved EF of 55 to 60% * Not candidate for ICD given active infection * This was discussed with Dr. Rodriguez who reviewed her rhythm strip with me. He believes it to be more artifact as he suspects there is underlying P waves but difficult to confirm. At any rate, he would not recommend anything other than placing her back on her beta-blockade (5) Liver abscess: Plan: * Patient with known liver abscess secondary to gallstone erosion requiring recent hospitalization at [place] * Spoke with GI, not candidate for IR given size and abscess not walled off * Seen by ID at [place] who recommended IV ertapenem. Was to continue through at least 09/29 with follow-up imaging to determine total length of treatment. There was a miscommunication upon discharge from the SNF. Patient had a follow-up CT scan and 1 of 2 abscesses resolved. The other smaller in size but persistent. ID wanted an additional 3 weeks of IV antibiotics with follow-up imaging to trend but inadvertently, antibiotics were stopped and PICC line removed * Back on ertapenem * Discussed with Brittany (medical records secretary for established infectious disease provider) who reports recommendations are for a minimum of 3 weeks of ertapenem with follow-up CT scan to determine total length of treatment. Patient will need follow-up imaging to determine if longer course required. Already established with RANDI (awilda) * Case management on board and has reached out to home health agencies who can start IV antibiotic therapy no sooner than Friday * Patient will need a PICC line but awaiting negative blood cultures to ensure not bacteremic or Fungemic given presenting hypotension (consent obtained and on chart). BD showing NGTD but since cant not faciltate D/C prior to Friday, will await placing picc. * Can consider potential discharge Friday with IV antibiotics (6) Fungemia: Plan: * Patient with Rae albicans fungemia during recent hospitalization * Completed Diflucan through 09/11 * Given acute hypotension, fungal blood cultures repeated and pending (7) Coronary artery disease: Plan: * Patient with known CAD. Cath 02/19 with proximal LAD 100% blockage with filling via left to left and right to left collaterals * Metoprolol held upfront given hypotension but since resumed given improved BP. Patient's blood pressure did not; however, tolerate the 150 mg dose. With review of old records, she has hypotension with this dose in the past. She has been placed back on metoprolol at 75 mg and seems to be tolerating this well * Continue aspirin and statin therapy (8) Rheumatoid arthritis: Plan: * Hold methotrexate given liver abscess and hypotension without other evidence of sepsis-- as this will only potentiate her immunocompromise state * Would remain off of this medication until cleared by ID Plan: CODE STATUS: Full code. Discussed with patient Filiberto for DVT prophylaxis pending placement as recommended by PT/OT Admission and Anticipated Discharge Date Admission Date: October 17, 2021 Subjective Patient is intermittently confused. She is able to carry a conversation while I am in the room. And understands she is in the hopsital, and has had multiple CT scan of her head in the past. However, nurse is concerned because she is leaning towards her right side when sitting. When questioned about this patient states it is just more comfortable and is able to reposition herself. Patient is also seen talking to herself when I am not in the room.. Review of Systems Review of Systems: All systems reviewed & are unremarkable except as noted in HPI & below Physical Exam Physical Exam: General: Resting comfortably in her hospital bed. NAD. HEENT: Head is AT/NC. Buccal mucosa is moist and pink Neck: No JVD. Negative hepatojugular reflex Cardiac: RRR without M/G/R Lungs: Normal respiratory effort. Abdomen: Normoactive X4. Soft and nontender in all quadrants. Extremities: Trace pitting edema Neuro: A&O X4. Cranial nerves II through XII are grossly intact. No focal neuro deficits Skin: No obvious skin lesions or rashes Psych: Appropriate affect. Pleasant and cooperative [id number] Results & Data Results & Data ([facility]) Vital Signs (Past 12 Hours) Vital Signs Temp Pulse Resp BP Pulse Ox 10/24/21 14:28 36.8 C 75 16 143/83 H 93 PG Care Time/CCT Total # of Minutes Spent Total Time Spent with Patient: Total time spent is greater than 50% in coordination of care (as documented) at patient's floor/unit and/or counseling patient: Coding Level of Care Code 66315 Subseq Hosp Care Lvl 2 Diagnoses Volume overload E87.70 Acute hypotension I95.9 Delirium R41.0 V-tach I47.2 Liver abscess K75.0 Fungemia B49 Coronary artery disease I25.10 Rheumatoid arthritis M06.9
[2021-10-25] MEDS: LEVOTHYROXINE SODIUM 88 MCG TABLET PO SCH (05:38)
[2021-10-25] MEDS: ESCITALOPRAM OXALATE 20 MG TAB PO SCH (08:44)
[2021-10-25] MEDS: FOLIC ACID 1 MG TAB PO SCH (08:44)
[2021-10-25] MEDS: ATORVASTATIN 40 MG TAB PO SCH (08:44)
[2021-10-25] MEDS: ASPIRIN 81 MG ECTAB PO SCH (08:44)
[2021-10-25] MEDS: THIAMINE HCL 100 MG TAB PO SCH (08:44)
[2021-10-25] MEDS: METOPROLOL TARTRATE 25 MG TAB PO SCH ×2 (08:44→22:13)
[2021-10-25] MEDS: POTASSIUM CHLORIDE CRTAB 20 MEQ TABCR PO SCH (08:45)
[2021-10-25] MEDS: NORTRIPTYLINE HCL 10 MG CAP PO SCH (08:45)
[2021-10-25] MEDS: MAGNESIUM OXIDE 400 MG TAB PO SCH ×2 (08:45→22:15)
[2021-10-25] MEDS: ENOXAPARIN INJ 40 MG/0.4 ML SYR SQ SCH (08:45)
[2021-10-25 10:15] LABS: Basophils # (auto) 0.01 K/uL (0-0.2); Basophils % (auto) 0.2 %; Eosinophils # (auto) 0.24 K/uL (0-0.5); Eosinophils % (auto) 4.6 %; Hematocrit (blood only) 29.1 % (37-47); Hemoglobin 8.9 g/dL (12.0-16.0); Lymphocytes # (auto) 1.39 K/uL (1.2-3.4); Lymphocytes % (auto) 26.9 %; Mean Corpuscular Hemoglobin 32.4 pg (25-34); Mean Corpuscular Hgb Conc 30.6 g/dL (32-36); Mean Corpuscular Volume 105.8 fL (80-100); Mean Platelet Volume 10.3 fL (7.4-10.4); Monocytes % (auto) 7.7 %; Neutrophils # (auto) 3.13 K/uL (1.4-6.5); Neutrophils % (auto) 60.6 %; Platelet Count 177 K/uL (130-400); RDW Coefficient of Variation 18.8 % (11.5-14.5); Red Blood Count 2.75 M/uL (4.2-5.4); White Blood Count 5.17 K/uL (4.8-10.8)
[2021-10-25 10:36] LABS: BUN Creatinine Ratio 23.8 (10-20); Calcium 7.9 mg/dl (8.5-10.1); Creatinine Clr Calc Pharmacy 99.3 ml/min; Est GFR (African American) 121.2 ml/min; Est GFR (Non-African American) 104.6 ml/min; Potassium 3.8 mmol/L (3.5-5.1)
--- NOTE | 2021-10-25 16:43 | Hospitalist Progress Note ---
Date of Service October 25, 2021 Assessment & Plan (1) Volume overload: Plan: * No evidence of fulminant CHF and no history of CHF but seems to be slightly volume overloaded on 10/19 with initial fluid balance +7.4 L, CXR did not show significant pulmonary vascular congestion BNP was slightly elevated. Was treated with diuretics * Breathing, BNP remained stable * Pending placement (2) Acute hypotension: Plan: Resolved * Presenting BP 89/57 * afebrile, without leukocytosis, lactic acid level normal * Known liver abscess for which she is to be on IV antibiotics. Due to miscommunication, these were stopped prematurely 2 weeks [employer] * Lengthy review of records and discussion with GI/IDplaced back on ertapenem--see below * Responded favorably to aggressive fluid resuscitation (now with slight volume overload) * Initially, antihypertensive agents held but have since been resumed. Patient does not seem to tolerate the 150 mg dose of metoprolol as prescribed prior to hospitalization and in review of records, she has a history of hypotension with this dose. This was decreased by half. * Blood cultures including fungal blood cultures ordered and pending * Urine culture showing no growth * Suspect underlying cause is known liver abscess * Although ESR and CRP were elevated at 52/2.17, they are downtrending from 84/4.2 (3) Delirium: Plan: * Patient with waxing and waning delirium although does answer questions appropriately * VBG showing no hypercapnia * CT of the head normal * Ammonia level normal * Suspect infectious encephalopathy * Improving now that she is back on IV antibiotics; * Patient has been waxing and waning over the past 24 hours. * O waxing and waning confusion since 10/23 2, patient again is confused. No focal findings. Has been having a good day and a bad day every other day. * Appears that she will likely require placement. * will continue current antibiotics. * repeat CT scan of head was negative. (4) V-tach: Plan: * There was concern for 10-second run of nonsustained V. tach in the overnight hours on 10/18 * Patient with known underlying heart disease for which she follows [facility] -- Cardiac Catheterization 02/22/2021: --Ostial/proximal LAD 100% occlusion. -- LAD fills via [id number] and [id number] collaterals. -- Mid circumflex 40%-50%. -- Dominant RCA. * Placed back on beta-blockade as above * Recent echo done on 08/21 showing preserved EF of 55 to 60% * Not candidate for ICD given active infection * This was discussed with Dr. Rodriguez who reviewed her rhythm strip. Likely artifact as he suspects there is underlying P waves but difficult to confirm. At this time would not recommend anything other than placing her back on her beta-blockade (5) Liver abscess: Plan: * Patient with known liver abscess secondary to gallstone erosion requiring recent hospitalization at [place] * Spoke with GI, not candidate for IR given size and abscess not walled off * Seen by ID at [place] who recommended IV ertapenem. Was to continue through at least 09/29 with follow-up imaging to determine total length of treatment. There was a miscommunication upon [facility] from the [facility]. Patient had a follow-up CT scan and 1 of 2 abscesses resolved. The other smaller in size but persistent. ID wanted an additional 3 weeks of IV antibiotics with follow-up imaging to trend but inadvertently, antibiotics were stopped and PICC line removed * Back on ertapenem * Discussed with Brittany (stenographer secretary for established infectious disease provider) who reports recommendations are for a minimum of 3 weeks of ertapenem with follow-up CT scan to determine total length of treatment. Patient will need follow-up imaging to determine if longer course required. Already established with ID ([email or web address]) * Case management on board and has reached out to home health agencies who can start IV antibiotic therapy no sooner than Friday * Patient will need a PICC line but awaiting negative blood cultures to ensure not bacteremic or Fungemic given presenting hypotension (consent obtained and on chart). BD showing NGTD but since cant not faciltate D/C prior to Friday, will await placing picc. * Can consider potential discharge Friday with IV antibiotics (6) Fungemia: Plan: * Patient with Rae albicans fungemia during recent hospitalization * Completed Diflucan through 09/11 * Given acute hypotension, fungal blood cultures repeated and pending (7) Coronary artery disease: Plan: * Patient with known CAD. Cath 02/19 with proximal LAD 100% blockage with filling via left to left and right to left collaterals * Metoprolol held upfront given hypotension but since resumed given improved BP. Patient's blood pressure did not; however, tolerate the 150 mg dose. With review of old records, she has hypotension with this dose in the past. She has been placed back on metoprolol at 75 mg and seems to be tolerating this well * Continue aspirin and statin therapy (8) Rheumatoid arthritis: Plan: * Hold methotrexate given liver abscess and hypotension without other evidence of sepsis-- as this will only potentiate her immunocompromise state * Would remain off of this medication until cleared by ID Plan: CODE STATUS: Full code. Discussed with patient Filiberto for DVT prophylaxis pending placement as recommended by PT/OT Admission and Anticipated Discharge Date Admission Date: October 17, 2021 Subjective Waxing and waning confusion overnight. Denies pain denies shortness of breath, difficulty breathing, fever, chills. Somewhat mumbled speech, which clears with attention. Distress, patient intermittently talks to herself while in the room with her prior assessments and nursing staff. Review of Systems Review of Systems: All systems reviewed & are unremarkable except as noted in Subjective Physical Exam Physical Exam: General: Oriented to name. No acute distress. Cooperative. HEENT: Atraumatic, normocephalic. Pupils equal and reactive to light. Pulm: CTAB A&P. -wheezes, -rales, -rhonchi. Symmetrical chest rise. No increase in work of breathing. No respiratory distress. Cardiac: RRR, -mrg. Radial pulses intact and symmetrical. Abdominal: Softly distended, nontender, no rebound BS present. Results & Data Results & Data ([facility]) Vital Signs (Past 12 Hours) Vital Signs Temp Pulse Resp BP Pulse Ox 10/25/21 07:16 36.6 C 77 14 107/61 95 PG Care Time/CCT Total # of Minutes Spent Total Time Spent with Patient: Total time spent is greater than 50% in coordination of care (as documented) at patient's floor/unit and/or counseling patient: Coding Level of Care Code 66842 Subseq Hosp Care Lvl 2 Diagnoses Volume overload E87.70 Acute hypotension I95.9 Delirium R41.0 V-tach I47.2 Liver abscess K75.0 Fungemia B49 Coronary artery disease I25.10 Rheumatoid arthritis M06.9
[2021-10-25] MEDS: FLUCONAZOLE 200 MG/100 ML BAG IV SCH ×2 (17:30→22:11)
[2021-10-25] MEDS: ERTAPENEM SODIUM 1,000 MG in SYRINGE 0 ML IV SCH (17:30)
[2021-10-25] MEDS: NORTRIPTYLINE HCL 25 MG CAP PO SCH (22:12)
[2021-10-25] MEDS: MONTELUKAST SODIUM 10 MG TABLET PO SCH (22:15)
[2021-10-26] MEDS: LEVOTHYROXINE SODIUM 88 MCG TABLET PO SCH (06:20)
[2021-10-26] MEDS: ASPIRIN 81 MG ECTAB PO SCH (07:44)
[2021-10-26] MEDS: ATORVASTATIN 40 MG TAB PO SCH (07:44)
[2021-10-26] MEDS: THIAMINE HCL 100 MG TAB PO SCH (07:44)
[2021-10-26] MEDS: ESCITALOPRAM OXALATE 20 MG TAB PO SCH (07:45)
[2021-10-26] MEDS: ENOXAPARIN INJ 40 MG/0.4 ML SYR SQ SCH (07:45)
[2021-10-26] MEDS: NORTRIPTYLINE HCL 10 MG CAP PO SCH (07:45)
[2021-10-26] MEDS: FOLIC ACID 1 MG TAB PO SCH (07:45)
[2021-10-26] MEDS: METOPROLOL TARTRATE 25 MG TAB PO SCH (07:45)
[2021-10-26] MEDS: MAGNESIUM OXIDE 400 MG TAB PO SCH ×2 (09:07→09:19)
[2021-10-26 09:24] LABS: Basophils # (auto) 0.01 K/uL (0-0.2); Basophils % (auto) 0.2 %; Eosinophils # (auto) 0.24 K/uL (0-0.5); Eosinophils % (auto) 4.9 %; Hematocrit (blood only) 28.4 % (37-47); Hemoglobin 8.9 g/dL (12.0-16.0); Immature Granulocytes # (auto) 0.01 K/uL (0.00-0.02); Immature Granulocytes % (auto) 0.2 %; Lymphocytes # (auto) 1.87 K/uL (1.2-3.4); Lymphocytes % (auto) 38.2 %; Mean Corpuscular Hemoglobin 32.8 pg (25-34); Mean Corpuscular Hgb Conc 31.3 g/dL (32-36); Mean Corpuscular Volume 104.8 fL (80-100); Mean Platelet Volume 10.5 fL (7.4-10.4); Monocytes # (auto) 0.54 K/uL (0.11-0.59); Neutrophils # (auto) 2.23 K/uL (1.4-6.5); Neutrophils % (auto) 45.5 %; Platelet Count 194 K/uL (130-400); RDW Coefficient of Variation 18.3 % (11.5-14.5); RDW Standard Deviation 70.1 fL (36.4-46.3); Red Blood Count 2.71 M/uL (4.2-5.4)
[2021-10-26 09:45] LABS: BUN Creatinine Ratio 17.9 (10-20); Calcium 7.9 mg/dl (8.5-10.1); Est GFR (African American) 124.2 ml/min; Est GFR (Non-African American) 107.2 ml/min; Potassium 3.5 mmol/L (3.5-5.1)
[2021-10-26] MEDS: ERTAPENEM SODIUM 1,000 MG in SYRINGE 0 ML IV SCH (13:29)
--- NOTE | 2021-10-26 13:55 | Discharge Summary ---
Date of Service October 26, 2021 Admission HPI Per Admitting Provider Mrs. Caceres is a 71 past medical history of CAD, hypothyroidism, asthma, hypertension, and RA on chronic methotrexate. She presented to the emergency department complaining of low BP and subtle confusion X 2 to 3 days. Patient has a complicated remote history of a liver abscess. She presented to our emergency department in August with septic shock requiring pressor support. She was found to have a perforated gallbladder with associated liver abscess. Prior to that hospitalization, she was hospitalized 05/30 through 06/03 for anemia, Covid, and subsequently found to have choledocholithiasis with acute c holecystitis. At that time it was noted to be mild. She had an ERCP and multiple stones were removed. Biliary sphincterectomy with successful with biliary stent placement and she was treated with antibiotics. She recovered from Covid and subsequently discharged home when to present back in August with sepsis due to perforated gallbladder and liver abscess formation. She was transferred to [place] due to lack of interventional radiology. In [place], she had and AXIOS stent and clearance of occluded debris. Subsequently had cardiac arrest and and subsequently had ROSC within 5min but did require ventilatory support in addition to pressor support. There she was found to have fistula due to gallstone erosion along with 2 abscesses noted within the liver. Patient had a cholecystostomy tube. In the interim, she was also found to be Fungemic. Was seen by ID with recommendations to remain on IV ertapenem through at least 09/29 but length of treatment to be determined based on follow-up CT scan. She was discharged to a [facility] facility. Recently had her FU CT to re-evaluate the liver abscesses and determine length of treatment. Unfortunately, there was miscommunication and her PICC line was removed and IV antibiotic therapy was discontinued. In talking with her established explosive operator fuse, the 1 liver abscess had resolved but the other remained. Although smaller, she needed to be on an additional 3 weeks of IV antibiotic therapy with follow-up imaging. Patient was discharged from the [facility] facility without antibiotics. She recently Followed up with Dr. Ellison (GI) where she had removal of her cholecystostomy tube and inadvertently, her biliary stent also came out. Underwent ERCP on 10/09 for reinsertion of this stent. She has been doing well up until 2 days ago when she developed intermittent and mild increased confusion. She is oriented today and answering all questions appropriately. Her per says that she just "has not been right". She reports increased fatigue and chills but denies fevers. She has been monitoring her blood pressure at home and today her blood pressure has been low (82/47). She did take her morning metoprolol (150 mg). She has felt dizzy and lightheaded today. She called her infectious disease specialist to was going to arrange for outpatient IV antibiotics; however, she did not have IV access and she was told to come to the emergency department for further evaluation and care. Upon presentation to the ED, BP was 88/63. Otherwise she was hemodynamically stable. Her white blood cell count is normal at 7.17. Her metabolic panel is normal. LFTs are normal. Her sed rate is elevated at 52 but has down trended from 84. Her CRP is elevated at 2.14 but is also down trended from 14.2. Her lactic acid level is normal at 1.9. Magnesium level is low at 1.4. CT of the abdomen and pelvis shows cholecystoduodenal stent without evidence of stones and the remaining liver abscess measuring 3.7 x 2.8 cm (in talking with GI, this was previously 4.3 cm). Prior to examination by myself, she had received 1/2 L of IV fluids but no IV fluids running. Current BP 89/57. Started back on IV fluids wide open with subsequent blood pressure of 107/63 Initially, thought that patient would need to be transferred back to [place] but after review of all records, and discussion with GI and IDshe really needs placed back on her IV antibiotics. GI reassures me that this cyst is not drainable Principal Diagnosis Hypotension, delirium, Liver Abscess Discharge Exam General: Oriented to name and place. No acute distress. Cooperative. HEENT: Atraumatic, normocephalic. Pupils equal and reactive to light. Pulm: CTAB A&P. -wheezes, -rales, -rhonchi. Symmetrical chest rise. No increase in work of breathing. No respiratory distress. Cardiac: RRR, -mrg. Radial pulses intact and symmetrical. Abdominal: Softly distended, nontender, no rebound BS present. Discharge Data Allergies Allergy/AdvReac Type Severity Reaction Status Date / Time bacitracin Allergy Intermediate Hives, Verified 10/17/21 14:47 blisters clavulanic acid Allergy Intermediate Hives Verified 10/17/21 14:47 diphenhydramine Allergy Intermediate Hives Verified 10/17/21 14:47 iodine Allergy Intermediate Hives Verified 10/17/21 14:47 ketorolac Allergy Intermediate Hives Verified 10/17/21 14:47 meclofenamic acid Allergy Intermediate Hives Verified 10/17/21 14:47 neomycin Allergy Intermediate Hives, Verified 10/17/21 14:47 blisters NSAIDS (Non-Steroidal Allergy Intermediate Hives Verified 10/17/21 14:47 Anti-Inflamma (tolerates Celebrex) oxycodone Allergy Intermediate Hives Verified 10/17/21 14:47 (tolerates Vicodin) polymyxin B Allergy Intermediate Hives, Verified 10/17/21 14:47 blisters quinine Allergy Intermediate Hives Verified 10/17/21 14:47 Sulfa (Sulfonamide Allergy Intermediate Hives Verified 10/17/21 14:47 Antibiotics) tramadol Allergy Intermediate Hives, Verified 10/17/21 14:47 itching adhesive Allergy Mild Rash Verified 10/17/21 14:47 latex Allergy Mild Rash Verified 10/17/21 14:47 povidone-iodine Allergy Mild Rash Verified 10/17/21 14:47 doxycycline Allergy Anaphylaxis Unverified 10/17/21 14:47 meperidine AdvReac Intermediate N/V Verified 10/17/21 14:47 prednisone AdvReac Intermediate Made Verified 10/17/21 14:47 "bones soft" aspirin AdvReac Mild N/V Verified 10/17/21 14:47 Consultations 10/17/21 14:01 ED Decision to Admit Stat Ordered Studies 10/17/21 10:41 CT abd pelvis wo con Stat CT head/brain wo con Stat 10/17/21 10:44 CT cervical spine wo con Stat 10/24/21 12:51 CT head/brain wo con Routine Hospital Course (1) Volume overload: Della is a 71-year-old female presented with hypotension, confusion, and volume overload. She was treated for liver abscesses and fluid overload. To do as outpatient: 1. Continue ertapenem for a minimum of [address] scan near end of 3-week course of ertapenem treatment, review with ID to determine whether antibiotics can be discontinued or need to be extended 3. Weekly CBC/CMP while on antibiotics 4. Follow-up with PCP within 1 week 5. Follow-up with Aranza infectious disease at [facility] Volume overload History of cardiac catheterization 01/2021 Echo with preserved EF - not required after initial hypoxia resolvedtreated with brief course of diuretics, resolved, breathing comfortably on room air following - On RA at discharge (2) Acute hypotension: Resolved * Presenting BP 89/57 * afebrile, without leukocytosis, lactic acid level normal * Known liver abscess for which she is to be on IV antibiotics. Due to miscommunication, these were stopped prematurely 2 weeks VICE PRESIDENT LENDING * Lengthy review of records and discussion with GI/IDplaced back on ertapenem--see below * Responded favorably to aggressive fluid resuscitation (now with slight volume overload) * Initially, antihypertensive agents held but have since been resumed. Patient does not seem to tolerate the 150 mg dose of metoprolol as prescribed prior to hospitalization and in review of records, she has a history of hypotension with this dose. This was decreased switched to 75mg BID tartrate held for HTN, pt did well with this * Blood cultures including fungal blood cultures ordered and ng. Diflucan dced with negative fungal eval * Urine culture showing no growth * Suspect underlying cause is known liver abscess * Although ESR and CRP were elevated at 52/.17, then are downtrending from 84/4.2 (3) Delirium: * Patient with waxing and waning delirium although does answer questions appropriately * VBG showing no hypercapnia * CT of the head normal * Ammonia level normal * Suspect infectious encephalopathy * Improving now that she is back on IV antibiotics; * Patient has been waxing and waning over the past 24 hours. * O waxing and waning confusion since 10/23 2, patient again is confused. No focal findings. Has been having a good day and a bad day every other day. * will continue current antibiotics. * repeat CT scan of head was negative. Suspect delirium, improving (4) V-tach: * There was concern for 10-second run of nonsustained V. tach in the overnight hours on 10/18 * Patient with known underlying heart disease for which she follows [facility] cardi[facility] -- Cardiac Catheterization 02/22/2021: --Ostial/proximal LAD 100% occlusion. -- LAD fills via [id number]-jn-eoud and [id number]-[id number] collaterals. -- Mid circumflex 40%-50%. -- Dominant RCA. * Placed back on beta-blockade as above * Recent echo done on 08/21 showing preserved EF of 55 to 60% * Not candidate for ICD given active infection * This was discussed with Dr. Rodriguez who reviewed her rhythm strip. Likely artifact as he suspects there is underlying P waves but difficult to confirm. At this time would not recommend anything other than placing her back on her beta-blockade (5) Liver abscess: * Patient with known liver abscess secondary to gallstone erosion requiring recent hospitalization at [place] * Spoke with GI, not candidate for IR given size and abscess not walled off * Seen by ID at [place] who recommended IV ertapenem. Was to continue through at least 09/29 with follow-up imaging to determine total length of treatment. There was a miscommunication upon discharge from the SNF. Patient had a follow-up CT scan and 1 of 2 abscesses resolved. The other smaller in size but persistent. ID wanted an additional 3 weeks of IV antibiotics with follow-up imaging to trend but inadvertently, antibiotics were stopped and PICC line removed * Back on ertapenem * Discussed with Brittany (administrative secretary for established infectious disease provider) who reports recommendations are for a minimum of 3 weeks of ertapenem with follow-up CT scan to determine total length of treatment. Patient will need follow-up imaging to determine if longer course required. Already established with ID (awilda) * Case management on board and has reached out to home health agencies who can start IV antibiotic therapy no sooner than Friday * PICC place, consent obtained from and patient (6) Fungemia: * Patient with Rae albicans fungemia during recent hospitalization * Completed Diflucan through 09/11 * Given acute hypotension, fungal blood cultures repeated. Treated with empiric diflucan which was dced after negative cultures and line placed. (7) Coronary artery disease: * Patient with known CAD. Cath 02/19 with proximal LAD 100% blockage with filling via left to left and right to left collaterals * Metoprolol held upfront given hypotension but since resumed given improved BP. Patient's blood pressure did not; however, tolerate the 150 mg dose. With review of old records, she has hypotension with this dose in the past. She has been placed back on metoprolol at 75 mg and seems to be tolerating this well * Continue aspirin and statin therapy (8) Rheumatoid arthritis: * Hold methotrexate given liver abscess and hypotension without other evidence of sepsis-- as this will only potentiate her immunocompromise state * Would remain off of this medication until cleared by ID CODE STATUS: Full code. Discussed with patient Filiberto for DVT prophylaxis pending placement as recommended by PT/OT Total Time Total Time Spent Total Time Spent (In Minutes): Time spend day of 60 discharge minutes including direct patient care, documentation, review of labs and images, and coordination of care. Discharge Plan Discharge Items Patient Disposition: Transfer [facility] Reason For Visit: HYPOTENSION, HEPATIC ABSCESS Discharge Diagnosis: Hepatic Abscess Activity: Per Instructions section Non-emergency contact: Primary Care Provider and Specialist Call non-emergency contact if: you have any medication questions Follow-up/Referrals: Tayla Kent DO [Primary Care Provider] - Diet: Heart Healthy Addtl Attending Provider Instructions: You were seen in the hospital for an acute liver abscess, low blood pressure, and confusion and were treated for liver abscess secondary to gallstone erosion which she had recently been hospitalized for in [place]. You are being discharged on an antibiotic, ertapenem. Please continue ertapenem 1000 mg once daily through your PICC line for 3 weeks. At around 3 weeks you should have a repeat CT scan of your liver performed, and treatment reassessed and potentially extended based on the results of the scan along with blood work. Your methotrexate has temporarily been held in the setting of infection, please remain off of this until advised to restart this either by infectious disease your primary care physician. If you experience a rheumatoid arthritis flare, joint swelling please discuss this with your primary care physician. Your metoprolol dose has been changed from metoprolol succinate to metoprolol tartrate. Please stop taking metoprolol succinate 150 mg daily. Please take metoprolol tartrate 75 mg twice daily, and hold the dose if your blood pressure is below 110 or heart rate is below 60. You will need to have weekly blood work including a CBC and CMP performed while on antibiotics as above. These have these drawn by her primary care physician or facility physician at [facility]. A follow-up appointment is being scheduled for you with your primary care physician, Dr. Kent. You should be seen within 1 week and have blood work drawn as above. You should receive a call to confirm this appointment, if you do not receive a call within 48 hours please contact her office at the number above. You should have a follow-up appointment scheduled for you with infectious disease, Aranza. You should have this appointment within 2 to 3 weeks. You should have a repeat CAT scan to assess your liver abscess performed prior to this appointment to help guide whether your ertapenem treatment needs to be extended. Please discuss this CAT scan with your primary care physician. If you do not receive confirmation of an appointment with infectious disease within 48 hours, please call their office. If you develop any new or worsening symptoms including fever, chills, sweats, chest pain, chest pressure, difficulty breathing, uncontrolled nausea/vomiting, rash, wheezing, passing out or nearly passing out, bleeding, black/bloody bowel movements, or other new or concerning symptoms please call your primary care physician, or call 911 for re-evaluation in the emergency department if you are very concerned. Pending Studies at Discharge: Yes (weekly CBC/BMP) Stand-Alone Forms: [facility] Patient informed of condition?: Yes DNR: No Discharge Level of Care: Skilled Communicable Disease: No Discharge Prognosis: Stable Lines: PICC Urinary Catheter: No Medications and DC Order Prescriptions: New ertapenem 1 gram recon soln 1 g IM DAILY 21 Days Qty: 21 RF: 0 metoprolol tartrate 25 mg Tablet 75 mg PO BID 30 Days Qty: 180 RF: 0 Continued magnesium oxide 400 mg (241.3 mg magnesium) tablet 400 mg PO BID RF: 0 nortriptyline 10 mg capsule 10 mg PO QAM Qty: 90 RF: 1 levothyroxine 75 mcg tablet 75 mcg PO QAM Qty: 90 RF: 1 montelukast [Singulair] 10 mg tablet 10 mg PO QPM Qty: 90 RF: 1 nortriptyline 25 mg capsule 25 mg PO HS Qty: 90 RF: 3 escitalopram oxalate [Lexapro] 20 mg tablet 20 mg PO QAM Qty: 90 RF: 1 zoledronic iuef-ieqpazis-tikxk 5 mg/100 mL piggyback 5 mg/kg IV YEARLY RF: 0 docusate sodium 100 mg Capsule 100 mg PO BID PRN (Reason: Constipation) RF: 0 nitroglycerin [Nitrostat] 0.4 mg Tablet, Sublingual 0.4 mg sublingual Q5M PRN (Reason: chest pain) Qty: 25 RF: 3 aspirin 81 mg Tablet,Delayed Release (Dr/Ec) 81 mg PO QAM RF: 0 atorvastatin 40 mg tablet 40 mg PO QAM RF: 0 valacyclovir 1 gram tablet 2,000 mg PO DAILY PRN (Reason: Cold Sores) RF: 0 calcium carbonate-vitamin D3 600 mg-5 mcg (200 unit) Tablet 1 tab PO BID RF: 0 folic acid 1 mg tablet 1 mg PO DAILY RF: 0 ondansetron 4 mg tablet,disintegrating 4 mg translingual Q12 PRN (Reason: Nausea) RF: 0 lansoprazole [Prevacid 24Hr] 15 mg capsule,delayed release(DR/EC) 15 mg PO QAM RF: 0 Discontinued celecoxib 200 mg capsule 200 mg PO BID RF: 0 methotrexate sodium 2.5 mg tablet 20 mg PO WK RF: 0 metoprolol succinate 100 mg tablet extended release 24 hr 150 mg PO QAM RF: 0 Discharge Orders: Discharge Order (Routine); Ordered 10/26/21 Ordered By: Levi Latif Admission Data Admit Date/Time: 10/17/21 15:16 Attending Provider: Levi Latif Admit Provider: Patel Juan Primary Care Provider: Tayla Kent Other Providers: [facility] ; Patel Juan ; [facility] Coding Level of Care Code D/C DAY MANAGEMENT >30 MINS Diagnoses Volume overload E87.70 Acute hypotension I95.9 Delirium R41.0 V-tach I47.2 Liver abscess K75.0 Fungemia B49 Coronary artery disease I25.10 Rheumatoid arthritis M06.9
== END 2021-10-26 15:19 | DRG 314 ==
LOC: ED 10:16 → EDINP 15:16 → SUATTDRO 15:16 → 1E 17:43 → 3N 10-20 18:41

== ENCOUNTER 2023-06-17 12:43 | Inpatient (IN) ==
[2023-06-17] MEDS ORDERED: SODIUM CHLORIDE 0.9% 1,000 ML IV SCH (13:45)
[2023-06-17] MEDS ORDERED: diphenhydrAMINE 50 MG/ML VIAL IV ONE (13:47)
[2023-06-17 14:20] LABS: iSTAT Creatinine 2.1 mg/dl (0.6-1.3); iSTAT Hemoglobin 11.2 g/dl (12.0-16.0); iSTAT Ionized Calcium 0.69 mmol/l (1.12-1.32); iSTAT Potassium 3.8 mmol/L (3.3-5.0)
[2023-06-17 14:20] LABS: Albumin Level 2.3 gm/dl (3.4-5.0); Anion Gap 8 (3-11); Bilirubin Direct 0.7 mg/dl (0-0.2); Bilirubin,Total 1.1 mg/dl (0.2-1.0); Calcium 7.7 mg/dl (8.6-10.3); Carbon Dioxide 21 mmol/L (21-32); Chloride 106 mmol/L (98-107); Magnesium 1.5 mg/dl (1.7-2.4); Potassium 3.8 mmol/L (3.5-5.1); Sodium 135 mmol/L (136-145)
[2023-06-17 14:26] LABS: Alanine Aminotransferase 47 U/L (7-52); Alkaline Phosphatase 285 U/L (34-104); Aspartate Aminotransferase 36 U/L (13-39); Blood Urea Nitrogen 24 mg/dl (6-23); Est GFR (African American) 31.2 ml/min; Est GFR (Non-African American) 26.9 ml/min; Glucose 83 mg/dl (70-99(Fasting)); Total Protein 5.7 gm/dl (6.0-8.3)
[2023-06-17 14:27] LABS: Hematocrit (blood only) 31.8 % (37.0-47.0); Mean Corpuscular Hemoglobin 35.6 pg (25.0-34.0); Mean Corpuscular Hgb Conc 34.6 g/dL (32.0-36.0); Mean Corpuscular Volume 102.9 fL (80.0-100.0); Mean Platelet Volume 11.1 fL (9.4-12.4); Platelet Count 119 K/uL (130-400); RDW Coefficient of Variation 16.9 % (11.5-14.5); RDW Standard Deviation 62.9 fL (36.4-46.3); Red Blood Count 3.09 M/uL (4.20-5.40); White Blood Count 18.27 K/ul (4.8-10.8)
[2023-06-17] MEDS ORDERED: CEFEPIME 2,000 MG/20 ML VIAL IV STA (14:32)
[2023-06-17 14:35] LABS: Appearance Urine Turbid (Clear); Bacteria Urine Automated Negative (Negative); Blood Urine 3+ (Negative); Color Urine Dark Yellow; Epithelial Cell Urine Auto >30 /lpf (0-5); Glucose Urine UA Negative (Negative); Ketones Urine Negative (Negative); Leukocyte Esterase Urine Trace (Negative); Nitrite Urine Positive (Negative); Protein Urine 2+ (Negative); Specific Gravity Urine 1.027 (1.000-1.030); Urobilinogen Urine Negative (Negative); pH Urine 5.5 (4.5-7.5)
[2023-06-17 14:37] LABS: Bilirubin Urine 2+ (Negative)
--- NOTE | 2023-06-17 14:39 | Electrocardiogram Report ---
Test Reason : Blood Pressure : / mmHG Vent. Rate : 109 BPM Atrial Rate : 109 BPM P-R Int : 182 ms QRS Dur : 116 ms QT Int : 352 ms P-R-T Axes : 061 -31 079 degrees QTc Int : 474 ms Sinus tachycardia Left axis deviation Old Anterior infarct (cited on or before 24-AUG-2021) Abnormal ECG When compared with ECG of 17-OCT-2021 11:22, Vent. rate has increased BY 48 BPM No significant change Confirmed by Chris Rodriguez ([id number]) on 06/17/2023 2:38:55 PM Referred By: Confirmed By:Chris Rodriguez
[2023-06-17 14:40] LABS: Basophils # (auto) 0.12 K/uL (0.00-0.20); Basophils % (auto) 0.7 %; Eosinophils # (auto) 0.02 K/uL (0.00-0.50); Eosinophils % (auto) 0.1 %; Immature Granulocytes % (auto) 0.5 %; Lymphocytes # (auto) 2.09 K/uL (1.20-3.40); Lymphocytes % (auto) 11.4 %; Monocytes # (auto) 0.79 K/uL (0.11-0.59); Monocytes % (auto) 4.3 %; Neutrophils # (auto) 15.15 K/uL (1.40-6.50); Ovalocytes 1+; Poikilocytosis Present; Polychromasia 1+; Tear Drop Cells 1+
[2023-06-17 14:43] LABS: Base Excess VBG -3.6 mEq/L; HCO3 VBG 22 mmol/L; Oxygen Saturation VBG < 60.0 %; PCO2 VBG 38 mmHg (38-50); PO2 VBG < 20 mmHg; pH VBG 7.36 (7.36-7.41)
[2023-06-17 14:47] LABS: INR 1.5 (0.9-1.1); Partial Thromboplastin Ratio 1.4; Prothrombin Time 16.3 Seconds (9.0-12.0)
[2023-06-17 14:48] LABS: Mucus Urine Present (None Prsent)
[2023-06-17 14:49] LABS: Amorphous Sediment Urine Present (None Prsent)
[2023-06-17] MEDS: MAGNESIUM SULFATE / D5W 1 GM/100 ML BAG IV SCH ×2 (14:51→16:27)
[2023-06-17 14:53] LABS: Partial Thromboplastin Time 40.3 Seconds (21.0-31.0)
[2023-06-17] MEDS ORDERED: SODIUM CHLORIDE 0.9% 1,000 ML IV ONE (15:05)
--- NOTE | 2023-06-17 15:11 | XRay Report ---
XR chest 1V portable CLINICAL HISTORY: Sepsis TECHNIQUE: Single frontal radiograph of the chest was obtained. Comparison: Comparison is made to chest radiograph 10/19/2021 FINDINGS: Bilateral shoulder arthroplasties are seen. The cardiomediastinal silhouette is normal. The lungs are clear. No evidence of pleural effusion or pneumothorax. Old healed left rib fracture. IMPRESSION: No acute abnormalities and in particular no radiographic evidence of pneumonia. ACT 112: Negative or not required by law. Electronically signed by: Vicente Edwards M.D. 06/17/2023 3:09 PM
--- NOTE | 2023-06-17 15:15 | CT Scan Report ---
CT OF THE ABDOMEN AND PELVIS WITHOUT CONTRAST CLINICAL HISTORY: Abdominal pain, nausea and vomiting. COMPARISON STUDY: CT of the abdomen and pelvis October 17, 2021. TECHNIQUE: Axial images of the abdomen and pelvis were obtained without IV contrast. Images were revi ewed in the axial, sagittal, and coronal planes. Automated exposure control was utilized for the nirav dy. A dose lowering technique was utilized adhering to the principles of ALARA. FINDINGS: There are trace bilateral pleural effusions. Subpleural opacities favor atelectasis. No pne umatosis, free air or portal venous gas is present. This exam is compromised by the lack of IV contra st and artifact from from arms overlying the abdomen. No pneumatosis, free air or portal venous gas i s present. Liver contour is slightly lobulated. A small amount of perihepatic ascites is noted. Small amount of ascites within the right paracolic gutter is also present. Fluid attenuation density withi n the gallbladder fossa with irregular contour likely reflects the gallbladder. There is no biliary o r pancreatic ductal dilatation. Spleen, adrenal glands and kidneys are normal. There is no hydronephr osis. A few hypodense hepatic lesions favor cysts. The appendix is normal. There is no evidence for a bowel obstruction. Mild pericolonic stranding is most evident adjacent to the sigmoid colon. There m ay be mild wall thickening within portions of the colon. The findings favor a nonspecific colitis. No fluid collections are present. Small bowel diverticulosis is also noted. Tethered appearance of smal l bowel loops within the pelvis is unchanged since CT of August 24, 2021. This does not result in a bowel obstruction. Multiple old lower thoracic and lumbar spine fractures are unchanged. No acute fr actures are identified within the lumbar spine, pelvis or hips. IMPRESSION: 1. Findings suggestive of a nonspecific colitis. Mild pericolonic stranding and colonic wall thickeni ng. 2. Exam compromised given artifact and lack of IV contrast, as described above. No bowel obstruction. No pneumatosis, free air or portal venous gas. 3. Small amount of ascites. 4. Trace bilateral pleural effusions. Subpleural opacities suggestive of atelectasis. 5. Possible cirrhosis. ACT 112: Negative or not required by law. Electronically signed by: Rodney Gilbert M.D. 06/17/2023 3:13 PM
[2023-06-17 15:18] LABS: Influenza A virus by PCR Negative (Neg); Influenza B virus by PCR Negative (Neg); RSV by PCR Negative (Neg); SARS CoV2 RNA(COVID-19) Ceph NEGATIVE (Negative)
--- NOTE | 2023-06-17 16:51 | History & Physical Report ---
Date of Service June 17, 2023 Assessment & Plan (1) Severe sepsis: Plan: -Admit to the PCU on tele -Currently stable after receiving her initial Sepsis fluid bolus and a dose of Cefepime in the ED -At this time the etiology of the patient's sepsis is likely her colitis as she is without other sources of infection on labs, imaging, and exam -Did speak with radiology regarding the hepatic cysts on CT today and her previous hx of liver abscesses, appreciate their help, they confirm that findings are consistent with hepatic cysts and not an abscess -Will obtain tick borne panels with her thrombocytopenia and elevated bili -Patient denies recent abx use, blood BM's, and melena, monitor stool studies and C. diff PCR -S/P one dose of Cefepime in the ED, will continue with Cefepime and add Flagyl for anaerobic coverage -Initial lactate elevated at 3.2, repeat 2 hour down to 2.8 after 2L NSS in the ED -Continue LR at 1000 mL/hr x 2 bags overnight as she appears significantly dehydrated on exam -Follow infectious workup and tailor abx accordingly -Holding chemical DVT PPX until DIC labs are back; BL OLYA's for now -HH, low potassium diet for now with renal failure (2) Colitis: Plan: -Noted on CT of the abd/pelvis wo con today -Patient has been experiencing mild lower abd pain -Last BM was on 06/14, denies bloody BM's or melena -No recent abx use -Follow stool studies and C. diff PCR -Continue Cefepime and flagyl for now (3) Renal failure: Plan: -Cr at 1.85 today, baseline is near 0.8 -Likely due to severe dehydration and severe sepsis -No signs of obstruction on CT, no UTI -Normally uses BID Celebrex; hold for now -Will place hunter cath on admission, patient is ok with this for now -Continue light IV hydration, monitor intake and output q6h overnight -Continue IV hydration overnight, avoid nephrotoxic agents -Monitor daily renal function; Nephrology consult for worsening renal function (4) Thrombocytopenia: Plan: -Platelets at 119 today -Multiple possible etiologies including sepsis, tick borne illness, and possible Cirrhosis on CT of the abd/pelvis today -AST/ALT WNL today -No signs of active bleeding -Will continue to follow DIC labs and infectious workup (5) Elevated INR: Plan: -INR elevated at 1.5 today -APTT and PT are also elevated -Patient without signs of bleeding, has been stable since her fluid resuscitation in the ED -Noted to have 2+ urine bilirubin as well -Patient is not on medication to cause these findings, could be related to her sepsis -Will obtain STAT D-dimer, LDH, haptoglobin, fibrinogen, peripheral smear to further evaluate for possible DIC -Monitor daily INR for now (6) Hypocalcemia: Plan: -Ionized calcium at 0.69 today with calcium of 7.7, and albumin of 2.3 -Likely multifactorial including poor oral intake, low albumin, and yearly Zolendronic acid infusions (last was in December) -Will obtain PTH and phos level on admission -Corrected calcium is 9.1 -Will start BID PO calcium carbonate tonight -Monitor am ionized calcium level (7) Elevated bilirubin: Plan: -Initial Bili at 1.1 with direct bili of 0.7 -AST and ALT WNL -Patient is without RUQ abdominal discomfort or signs of acute bili or bile duct abnormalities on CT today -Likely due to dehydration -Continue IV hydration, monitor daily CMP; would get RUQ US if she starts to develop RUQ pain (8) Hypomagnesemia: Plan: -Noted to be 1.5 today -Is a chronic problem likely exacerbated by recent poor oral intake -S/P 2 doses of 1gm IV mag-sulfate in the ED -Will hold additional mag overnight due to renal failure, can continue PO home mag tomorrow -Monitor am mag level (9) Hypoglycemia: Plan: -Initial hypoglycemic at 65 in the ED -Likely due to very poor oral intake and severe sepsis -Currently stable -Will add hypoglycemia protocol and monitor BSG q6h overnight (10) HFrEF (heart failure with reduced ejection fraction): Plan: -Currently dehydrated -LVEF of 40-45% -Continue to monitor volume status while on light IV hydration overnight (11) Hypothyroidism: Plan: -Continue levothyroxine (12) Hypertension: Plan: -Currently stable -Can continue metoprolol tomorrow as long as she remains hemodynamically stable (13) GERD (gastroesophageal reflux disease): Plan: -Continue PPI Plan The patient was discussed with Dr. Latif at the time of the admission History of Present Illness Chief Complaint: Nausea, dry heaving, abdominal pain Primary Care Provider: DO Tammy Carvalho is a 73-year-old female with history of CAD (Ostial/proximal LAD 100% occlusion with [id number] and [id number] collaterals, mid LCx 40%-50%. stenosis), Ischemic Cardiomyopathy (LVEF 40% to 45%), Hypertension, previous perforated cholecystitis with liver abscess secondary to gallstone erosion S/P ERCP with lithotripsy, fungemia, stent placement and brief episode of cardiac arrest with ROSC achieved after one round of epi in 2021, Rheumatoid Arthritis, Asthma, Hypothyroidism, and Choledocholithiasis s/p Stent placement by [facility] who presented to the [facility] ED on 06/17 for progressive generalized weakness, poor oral intake, lower abdominal pain, and decreased urine output. In the ED the patient was initially noted to be hypotensive at 85/60 and tachycardic at 101 but otherwise stable. Labs were significant for a leukocytosis of 18 with neutrophil predominance of 15, platelet count of 119, INR of 1.5, PT of 16.3, APTT of 40.3, VBG WNL, Cr of 1.85 (baseline is near 0.8), glucose of 67, initial lactate of 3.2 with 2 hour repeat of 2.8, ionized calcium of 0.69, mag o f1.5, total bili of 1.1, direct bili of 0.7, AST/ALT WNL, alk phos of 285, procal of 32, UA not indicative of acute infection, and Covid 19, influenza A/B, and RSV negative. Chest xray was read as "No acute abnormalities and in particular no radiographic evidence of pneumonia.". CT of the abd/pelvis was obtained as the patient's renal failure prevented administration of IV con and was read as " 1. Findings suggestive of a nonspecific colitis. Mild pericolonic stranding and colonic wall thickening. 2. Exam compromised given artifact and lack of IV contrast, as described above. No bowel obstruction. No pneumatosis, free air or portal venous gas. 3. Small amount of ascites. 4. Trace bilateral pleural effusions. Subpleural opacities suggestive of atelectasis. 5. Possible cirrhosis.". Prior to admission the patient was given 2L NSS, 2gm IV mag- sulfate, a dose of cefepime, and was initilly given 50 mg IV benadryl and 40 mg IV methylprednisolone as she has a previous contrast allergy. At the time of the exam the exam the patient was lying in bed in no acute distress with her sitting bedside, history was obtained from both. They confirm that she had her previous stent placed by [facility] who also removed her previous gallstones which were eroding into her liver in October. She has a follow up appointment with them next Friday. Starting on 06/13 the patient began to experience BL lower abdominal pain, nausea without vomiting, poor oral intake, decreased urine output, and generalized weakness. They state that she was so weak today that her had to help her out of bed and assist her walking to the bathroom, but she has been able to ambulate. She denies focal neurologic symptoms, unilateral weakness, saddle anesthesia, loss of bowel or bladder control, and recent trauma. She does not her chronic thoracic back pain to be at baseline. She states that she has not had urine output since 06/15 and has not had a bowel movement since 06/14. She has chronic diarrhea at baseline but denies recent melena or bloody BM's. She denies upper abdominal pain similar to previous episodes of cholecystitis/choledocholithiasis. She has been unable to consistently take her medications over this time. She states that she only takes one tab of tylenol BID and one tab of Celebrex BID. She denies other NSAID use. She states that she feels much improved after the initial treatment given in the ED. We discussed code status, she wishes to be a full code and for her to make medical decisions for her if she cannot make them herself. Please refer to Dr. Latif's attestation for any changes to the treatment plan Allergies Allergy/AdvReac Type Severity Reaction Status Date / Time bacitracin Allergy Intermediate Hives, Verified 03/24/23 10:51 blisters clavulanic acid Allergy Intermediate Hives Verified 03/24/23 10:51 diphenhydramine Allergy Intermediate Hives Verified 03/24/23 10:51 iodine Allergy Intermediate Hives Verified 03/24/23 10:51 ketorolac Allergy Intermediate Hives Verified 03/24/23 10:51 meclofenamic acid Allergy Intermediate Hives Verified 03/24/23 10:51 neomycin Allergy Intermediate Hives, Verified 03/24/23 10:51 blisters NSAIDS (Non-Steroidal Allergy Intermediate Hives Verified 03/24/23 10:51 Anti-Inflamma (tolerates Celebrex) oxycodone Allergy Intermediate Hives Verified 03/24/23 10:51 (tolerates Vicodin) polymyxin B Allergy Intermediate Hives, Verified 03/24/23 10:51 blisters quinine Allergy Intermediate Hives Verified 03/24/23 10:51 Sulfa (Sulfonamide Allergy Intermediate Hives Verified 03/24/23 10:51 Antibiotics) tramadol Allergy Intermediate Hives, Verified 03/24/23 10:51 itching adhesive Allergy Mild Rash Verified 03/24/23 10:51 doxycycline Allergy Mild Anaphylaxis Verified 03/24/23 10:51 hydroxychloroquine Allergy Mild Rash Verified 03/24/23 10:51 latex Allergy Mild Rash Verified 03/24/23 10:51 methotrexate Allergy Mild Rash Verified 03/24/23 10:51 povidone-iodine Allergy Mild Rash Verified 03/24/23 10:51 meperidine AdvReac Intermediate N/V Verified 03/24/23 10:51 prednisone AdvReac Intermediate Made Verified 03/24/23 10:51 "bones soft" aspirin AdvReac Mild N/V Verified 03/24/23 10:51 Home Medications Medication Instructions Recorded Confirmed Type docusate sodium 100 mg capsule 100 mg PO BID PRN Constipation 02/26/19 06/17/23 History zoledronic acid 5 mg/100 mL in 5 mg/kg IV YEARLY 03/02/19 06/17/23 History mannitol 5 %-water intravenous piggybck nitroglycerin 0.4 mg sublingual 0.4 mg sublingual Q5M PRN chest 02/22/21 06/17/23 Rx tablet (Nitrostat) pain #25 tabs calcium carbonate 600 mg-vitamin 1 tab PO QAM 08/24/21 06/17/23 History D3 5 mcg (200 unit) tablet ondansetron 4 mg disintegrating 4 mg translingual Q12 PRN Nausea 08/24/21 06/17/23 History tablet acetaminophen 650 mg 650 mg PO Q8H PRN Pain 12/04/21 06/17/23 History tablet,extended release (Tylenol Arthritis Pain) folic acid 1 mg tablet 1 mg PO QAM 05/24/22 06/17/23 History silver sulfadiazine 1 % topical 1 applic topical DAILY #20 grams 11/01/22 06/17/23 Rx cream magnesium oxide 400 mg (241.3 mg 400 mg PO BID #180 tabs 12/05/22 06/17/23 Rx magnesium) tablet atorvastatin 40 mg tablet 40 mg PO QAM #90 tabs 02/25/23 06/17/23 Rx levothyroxine 75 mcg tablet 75 mcg PO QAM #90 tabs 02/25/23 06/17/23 Rx nortriptyline 10 mg capsule 10 mg PO QAM #90 caps 02/25/23 06/17/23 Rx escitalopram oxalate 20 mg tablet 20 mg PO QAM #90 tabs 02/26/23 06/17/23 Rx (Lexapro) nortriptyline 25 mg capsule 25 mg PO HS #90 caps 02/27/23 06/17/23 Rx metoprolol succinate 50 mg 50 mg PO DAILY #180 tabs 03/18/23 06/17/23 Rx tablet,extended release 24 hr valacyclovir 1 gram tablet 2,000 mg PO DAILY PRN Cold Sores 03/24/23 06/17/23 Rx #12 tabs montelukast 10 mg tablet 10 mg PO QAM #90 tabs 04/24/23 06/17/23 Rx (Singulair) potassium chloride 10 mEq 10 meq PO QAM #90 tabs 04/24/23 06/17/23 Rx tablet,extended release aspirin 81 mg tablet,delayed 81 mg PO QAM #90 tabs 05/20/23 06/17/23 Rx release celecoxib 200 mg capsule (Celebrex) 200 mg PO BID #180 caps 05/20/23 06/17/23 Rx lansoprazole 15 mg capsule,delayed 15 mg PO QAM #90 caps 05/20/23 06/17/23 Rx release (Prevacid 24Hr) albuterol sulfate 90 mcg/actuation 1 - 2 puff inhalation .Q 4-6 HRS 06/17/23 06/17/23 History aerosol inhaler (Ventolin HFA) PRN shortness of breath or wheezing Past Med/Surg History Medical History (Updated 06/23/23 @ 10:15 by VICTOR MANUEL Nesbitt) Abnormal CT of the abdomen Allergic rhinitis Anemia Anxiety and depression Asthma Cholangitis Cholecystitis with perforation of gallbladder Coronary artery disease Cardiac catheterization -02/22/2021:Impression: 1. Severe CAD involving ostial/proximal LAD (100%), filling via left to left and right to left collaterals. 2. Otherwise nonobstructive CAD involving the mid circumflex. 3. No aortic stenosis. 4. Normal left-sided filling pressure. COVID-19 Encounter for pre-operative examination GERD (gastroesophageal reflux disease) History of COVID-19 DX 05/2021 (NO SYMPTOMS>PT STATES WAS A FALSE POSITIVE) History of right breast cancer s/p lumpectomy (1969)- no chemo or xrt Hx of fracture Right shoulder AC joint fracture (10/2020) due to traumatic event > healing without surgical intervention Hyperlipidemia Hypertension Hypotension Hypothyroidism Hypoxia IBS (irritable bowel syndrome) Insomnia Ischemic cardiomyopathy Liver abscess Lumbar facet joint syndrome Lumbar spinal stenosis Rheumatoid arthritis Sacroiliitis Steroid-induced osteoporosis V-tach Volume overload Surgical History H/O arthroscopy of shoulder L shoulder H/O cataract extraction R/L eye History of arthroscopy of left knee History of biopsy History of breast biopsy History of cardiac cath NO - [facility] Dr. Arthur History of ERCP WITH STENT (NOT PRESENT) History of foot surgery R/L History of lumpectomy of right breast History of right knee joint replacement History of tonsillectomy History of total abdominal hysterectomy and bilateral salpingo-oophorectomy d/t endometriosis Nausea and vomiting after administration of anesthetic agent S/P ORIF (open reduction internal fixation) fracture Left ankle S/p reverse total shoulder arthroplasty Left reverse TSA (02/26/19): Grade view 2, MAC#3, ETT 7 + PNB at [facility] (scope patch used) Family History Grandmother (Paternal) Family history of diabetes mellitus Grandmother (Maternal) Family history of diabetes mellitus Father Coronary heart disease Alzheimer disease Myocardial infarction Osteoarthritis COPD (chronic obstructive pulmonary disease) Lung disease Mother Myocardial infarction COPD (chronic obstructive pulmonary disease) Other No family history of adverse response to anesthesia Denies family history of Ovarian cancer Prostate cancer Breast cancer Colorectal cancer Social History Smoking Status: Never smoker Second Hand Exposure: Yes; Do You Dip or Chew Tobacco: No; Hx Alcohol Use: No Hx Substance Use: No Preferred Language: Pakistani Communication Ability: Effective Visual Impairment: No Limitations Hearing Ability: Normal Procedures Rn Required: No Beliefs That Will Affect Care: None marital status: Current Living Situation: Spouse and Family Current Living Situation Comment: Home with family current occupational status: retired How many Children do You have: 2 Feels Safe at Home: Yes Childhood Exposure to Second-Hand Smoke: Yes Diet: regular Diet Comment: regular caffeine: Yes (coffee) during the past year weight has: remained stable Dental Care, Regularly: No Physical Activity Frequency: Daily Physical Activity Frequency Comment: walking indoors Seatbelt Use: always Sunscreen Use: No Assistive Devices: Raised Toilet Seat, Scooter/Electric Scooter and Wheelchair Physical Exam Physical Exam: Physical Exam: General: In no acute distress, stated age, ill appearing but non-toxic HEENT: Normocephalic, atraumatic, no scleral icterus, pupils around round, symmetrical, and reactive to light, Dry mucus membranes, trachea midline, no thyromegaly Chest/Pulm: No respiratory distress, symmetrical chest expansion, clear breath sounds throughout Cardiac: RRR, no murmurs noted Abdomen: Negative for ascites and bruising, hypoactive bowel sounds, soft, mildly tender to palpation in the lower abdominal thomas but otherwise non- tender Musculoskeletal: Symmetrical and without signs of acute trauma, upper and lower extremities with full ROM, no atrophy, spasticity, or flaccidity, no signs of acute infection on inspection and palpation of the cervical, thoracic, and lumbar spine. Mild tenderness to palpation over the upper thoracic spine which patient confirms is where her chronic back pain is located Extremities: Radial, dorsalis pedis, and posterior tibial pulses are intact and symmetrical, no edema noted in the BL LE's Skin: Warm, dry, no rashes , lesions, or scars noted Neuro: Alert and oriented to person, place, month, year, and president, no focal defects, no tremors noted Psych: No acute distress, calm and cooperative during the exam Results & Data Results & Data Vital Signs (Past 12 Hours) Vital Signs Temp Pulse Resp BP Pulse Ox O2 Del Method 06/17/23 14:14 17 94 Room Air 06/17/23 14:14 94 Room Air 06/17/23 14:02 101 H 06/17/23 13:21 36.8 C 121 H 20 85/60 L 93 Room Air Laboratory Results Abnormal lab results 06/17/23 06/17/23 06/17/23 Range/Units 13:33 13:33 13:33 WBC 18.27 H (4.8-10.8) K/ul RBC 3.09 L (4.20-5.40) M/uL Hgb 11.0 L (12.0-16.0) g/dl POC Hgb (12.0-16.0) g/dl Hct 31.8 L (37.0-47.0) % POC Hct (37-47) % MCV 102.9 H (80.0-100.0) fL MCH 35.6 H (25.0-34.0) pg RDW Std Deviation 62.9 H (36.4-46.3) fL RDW Coeff of Ender 16.9 H (11.5-14.5) % Plt Count 119 L (130-400) K/uL Neut # (Auto) 15.15 H (1.40-6.50) K/uL [place] # (Auto) 0.79 H (0.11-0.59) K/uL PT 16.3 H (9.0-12.0) Seconds INR 1.5 H (0.9-1.1) APTT 40.3 H* (21.0-31.0) Seconds POC Sodium (135-144) mmol/L Sodium 135 L (136-145) mmol/L POC Total CO2 (24-31) mmol/L POC BUN (7-18) mg/dl BUN 24 H (6-23) mg/dl Creatinine 1.85 H (0.6-1.2) mg/dl POC Creatinine (0.6-1.3) mg/dl POC Glucose (other) (70-99) mg/dl Lactate (0.4-2.0) mmol/L Calcium 7.7 L (8.6-10.3) mg/dl POC Ioniz Calcium Marco Antonio (1.12-1.32) mmol/l Magnesium 1.5 L (1.7-2.4) mg/dl Total Bilirubin 1.1 H (0.2-1.0) mg/dl Direct Bilirubin 0.7 H (0-0.2) mg/dl Alkaline Phosphatase 285 H (34-104) U/L Total Protein 5.7 L (6.0-8.3) gm/dl Albumin 2.3 L (3.4-5.0) gm/dl Procalcitonin (0-0.5) ng/ml Urine Appearance (Clear) Urine Protein (Negative) Urine Blood (Negative) Urine Nitrite (Negative) Urine Bilirubin (Negative) Ur Leukocyte Esterase (Negative) Urine WBC (Auto) (0-5) /hpf Urine RBC (Auto) (0-4) /hpf U Hyaline Cast (Auto) (0-5) /lpf U Epithel Cells (Auto) (0-5) /lpf Amorphous Sediment (None Prsent) Granular Casts (0) /lpf Urine Mucus (None Prsent) 06/17/23 06/17/23 06/17/23 Range/Units 13:33 13:52 13:57 WBC (4.8-10.8) K/ul RBC (4.20-5.40) M/uL Hgb (12.0-16.0) g/dl POC Hgb (12.0-16.0) g/dl Hct (37.0-47.0) % POC Hct (37-47) % MCV (80.0-100.0) fL MCH (25.0-34.0) pg RDW Std Deviation (36.4-46.3) fL RDW Coeff of Ender (11.5-14.5) % Plt Count (130-400) K/uL Neut # (Auto) (1.40-6.50) K/uL [place] # (Auto) (0.11-0.59) K/uL PT (9.0-12.0) Seconds INR (0.9-1.1) APTT (21.0-31.0) Seconds POC Sodium (135-144) mmol/L Sodium (136-145) mmol/L POC Total CO2 (24-31) mmol/L POC BUN (7-18) mg/dl BUN (6-23) mg/dl Creatinine (0.6-1.2) mg/dl POC Creatinine (0.6-1.3) mg/dl POC Glucose (other) (70-99) mg/dl Lactate 3.2 H* (0.4-2.0) mmol/L Calcium (8.6-10.3) mg/dl POC Ioniz Calcium [place] (1.12-1.32) mmol/l Magnesium (1.7-2.4) mg/dl Total Bilirubin (0.2-1.0) mg/dl Direct Bilirubin (0-0.2) mg/dl Alkaline Phosphatase (34-104) U/L Total Protein (6.0-8.3) gm/dl Albumin (3.4-5.0) gm/dl Procalcitonin 32.17 H (0-0.5) ng/ml Urine Appearance Turbid A (Clear) Urine Protein 2+ H (Negative) Urine Blood 3+ H (Negative) Urine Nitrite Positive A (Negative) Urine Bilirubin 2+ H (Negative) Ur Leukocyte Esterase Trace H (Negative) Urine WBC (Auto) 5-10 H (0-5) /hpf Urine RBC (Auto) 5-10 H (0-4) /hpf U Hyaline Cast (Auto) 10-30 H (0-5) /lpf U Epithel Cells (Auto) >30 H (0-5) /lpf Amorphous Sediment Present A (None Prsent) Granular Casts 5-10 H (0) /lpf Urine Mucus Present A (None Prsent) 06/17/23 06/17/23 Range/Units 14:06 16:26 WBC (4.8-10.8) K/ul RBC (4.20-5.40) M/uL Hgb (12.0-16.0) g/dl POC Hgb 11.2 L (12.0-16.0) g/dl Hct (37.0-47.0) % POC Hct 33 L (37-47) % MCV (80.0-100.0) fL MCH (25.0-34.0) pg RDW Std Deviation (36.4-46.3) fL RDW Coeff of Ender (11.5-14.5) % Plt Count (130-400) K/uL Neut # (Auto) (1.40-6.50) K/uL [place] # (Auto) (0.11-0.59) K/uL PT (9.0-12.0) Seconds INR (0.9-1.1) APTT (21.0-31.0) Seconds POC Sodium 134 L (135-144) mmol/L Sodium (136-145) mmol/L POC Total CO2 18 L (24-31) mmol/L POC BUN 20 H (7-18) mg/dl BUN (6-23) mg/dl Creatinine (0.6-1.2) mg/dl POC Creatinine 2.1 H (0.6-1.3) mg/dl POC Glucose (other) 67 L* (70-99) mg/dl Lactate 2.8 H* (0.4-2.0) mmol/L Calcium (8.6-10.3) mg/dl POC Ioniz Calcium Marco Antonio 0.69 L* (1.12-1.32) mmol/l Magnesium (1.7-2.4) mg/dl Total Bilirubin (0.2-1.0) mg/dl Direct Bilirubin (0-0.2) mg/dl Alkaline Phosphatase (34-104) U/L Total Protein (6.0-8.3) gm/dl Albumin (3.4-5.0) gm/dl Procalcitonin (0-0.5) ng/ml Urine Appearance (Clear) Urine Protein (Negative) Urine Blood (Negative) Urine Nitrite (Negative) Urine Bilirubin (Negative) Ur Leukocyte Esterase (Negative) Urine WBC (Auto) (0-5) /hpf Urine RBC (Auto) (0-4) /hpf U Hyaline Cast (Auto) (0-5) /lpf U Epithel Cells (Auto) (0-5) /lpf Amorphous Sediment (None Prsent) Granular Casts (0) /lpf Urine Mucus (None Prsent) Diagnostic Findings Chest X-Ray 06/17/23 13:31 XR chest 1V portable CLINICAL HISTORY: Sepsis TECHNIQUE: Single frontal radiograph of the chest was obtained. Comparison: Comparison is made to chest radiograph 10/19/2021 FINDINGS: Bilateral shoulder arthroplasties are seen. The cardiomediastinal silhouette is normal. The lungs are clear. No evidence of pleural effusion or pneumothorax. Old healed left rib fracture. IMPRESSION: No acute abnormalities and in particular no radiographic evidence of pneumonia. ACT 112: Negative or not required by law. Electronically signed by: Vicente Edwards M.D. 06/17/2023 3:09 PM Abdomen/Pelvis CT 06/17/23 14:09 CT OF THE ABDOMEN AND PELVIS WITHOUT CONTRAST CLINICAL HISTORY: Abdominal pain, nausea and vomiting. COMPARISON STUDY: CT of the abdomen and pelvis October 17, 2021. TECHNIQUE: Axial images of the abdomen and pelvis were obtained without IV contrast. Images were reviewed in the axial, sagittal, and coronal planes. Automated exposure control was utilized for the study. A dose lowering technique was utilized adhering to the principles of ALARA. FINDINGS: There are trace bilateral pleural effusions. Subpleural opacities favor atelectasis. No pneumatosis, free air or portal venous gas is present. This exam is compromised by the lack of IV contrast and artifact from from arms overlying the abdomen. No pneumatosis, free air or portal venous gas is present. Liver contour is slightly lobulated. A small amount of perihepatic ascites is noted. Small amount of ascites within the right paracolic gutter is also present. Fluid attenuation density within the gallbladder fossa with irregular contour likely reflects the gallbladder. There is no biliary or pancreatic ductal dilatation. Spleen, adrenal glands and kidneys are normal. There is no hydronephrosis. A few hypodense hepatic lesions favor cysts. The appendix is normal. There is no evidence for a bowel obstruction. Mild pericolonic stranding is most evident adjacent to the sigmoid colon. There may be mild wall thickening within portions of the colon. The findings favor a nonspecific colitis. No fluid collections are present. Small bowel diverticulosis is also noted. Tethered appearance of small bowel loops within the pelvis is unchanged since CT of August 24, 2021. This does not result in a bowel obstruction. Multiple old lower thoracic and lumbar spine fractures are unchanged. No acute fractures are identified within the lumbar spine, pelvis or hips. IMPRESSION: 1. Findings suggestive of a nonspecific colitis. Mild pericolonic stranding and colonic wall thickening. 2. Exam compromised given artifact and lack of IV contrast, as described above. No bowel obstruction. No pneumatosis, free air or portal venous gas. 3. Small amount of ascites. 4. Trace bilateral pleural effusions. Subpleural opacities suggestive of atelectasis. 5. Possible cirrhosis. ACT 112: Negative or not required by law. Electronically signed by: Rodney Gilbert M.D. 06/17/2023 3:13 PM ECG Additional Comments: Sinus tachycardia Left axis deviation Old Anterior infarct (cited on or before 24-AUG-2021) Abnormal ECG When compared with ECG of 17-OCT-2021 11:22, Vent. rate has increased BY 48 BPM No significant change Confirmed by Chris Rodriguez ([id number]) on 06/17/2023 2:38:55 PM Code Status & VTE Plan Code Status Full code VTE Prophylaxis Plan VTE Prophylaxis will be ordered: Yes Supervising Physician Co-Signing Physician Notes Patient seen and examined, chart reviewed, case discussed with Ady Knight PA-C and I agree with the assessment and plan as above except as otherwise noted Labs and images reviewed 73-year-old female with history of residual CAD and ischemic cardiomyopathy with midrange EF, hypertension, prior perforated cholecystitis with liver abscess, fungemia, RA, and prior choledocholithiasis s/p stent placement with [facility] who presents with continued continued and recurrent weakness, poor intake, abdominal pain. Patient is recommended for admission for suspected severe sepsis, imaging shows evidence of colitis. CT does show liver cysts, this was reviewed with radiology as noted and are not suspected to be abscesses. Patient is covered with broad-spectrum antibiotics. Appears volume contracted and with RHIANNON. Fluids as noted, caution with midrange EF. Patient is improving with downtrending lactate following 2 L NSS with an additional 2 L continued at maintenance. Patient does have elevated INR and D-dimer without evidence of PE, she is not using and does not show clinical signs of bleeding. We will continue to treat sepsis as potential underlying cause, following DIC labs and chemical PPx temporarily held. Bedside assessment lungs are clear, abdomen is mildly ten hina and left lower and right lower quadrant but without rebound/guarding. Heart rate is regular. Clinically appears to be improving on serial reassessments while in ER. Stool panel plus C. difficile is pending for colitis. agree with assessment and work-up above PG Care Time/CCT Total # of Minutes Spent Total Time Spent with Patient: Total time spent is greater than 50% in coordination of care (as documented) at patient's floor/unit and/or counseling patient: Coding [place] [address] INT INP/OBS CARE 3/75MIN Patient Type Established Medical Decision Making High Complexity Diagnoses Severe sepsis A41.9; R65.20 Colitis K52.9 Renal failure N19 Thrombocytopenia D69.6 Elevated INR R79.1 Hypocalcemia E83.51 Elevated bilirubin R17 Hypomagnesemia E83.42 Hypoglycemia E16.2 HFrEF (heart failure with reduced ejection fraction) I50.20 Hypothyroidism E03.9 Hypertension I10 GERD (gastroesophageal reflux disease) K21.9
[2023-06-17 17:00] LABS: Lipase 11 U/L (11-82)
[2023-06-17] MEDS ORDERED: GLUCOSE 10 TAB/TUBE PO PRN (17:58)
[2023-06-17] MEDS ORDERED: GLUCOSE 40% GEL 15 GM TUBE PO PRN (17:58)
[2023-06-17] MEDS ORDERED: GLUCAGON FOR INJ 1 MG VIAL SQ PRN (17:58)
[2023-06-17] MEDS: LACTATED RINGER'S 1,000 ML IV SCH (18:26)
[2023-06-17] MEDS: metroNIDAZOLE 500 MG/100 ML BAG IV SCH (18:26)
[2023-06-17 18:33] LABS: Lactate Dehydrogenase 344 U/L (86-244)
[2023-06-17 19:04] LABS: Phosphorus 4.2 mg/dl (2.5-4.9)
--- NOTE | 2023-06-17 19:23 | Emergency Department Note ---
History of Present Illness General Chief complaint: Weakness Stated complaint: WEAKNESS,UPSET STOMACH Time Seen by Provider: 06/17/23 13:31 History of Present Illness Provider complaint: Weakness dry heaving 73-year-old female presents emergency department for weakness dry heaving. Patient reports her symptoms of been present for the last 2 days. She reports abdominal pain. She reports no vomiting. She reports nausea. She reports diarrhea. No hematochezia. Patient does report dark black stools. No hematemesis coffee-ground emesis or bilious vomiting. No fevers. No cough. No chest pain or difficulty breathing. Home Medications Medication Instructions Recorded Confirmed Type docusate sodium 100 mg capsule 100 mg PO BID PRN Constipation 02/26/19 06/17/23 History zoledronic acid 5 mg/100 mL in 5 mg/kg IV YEARLY 03/02/19 06/17/23 History mannitol 5 %-water intravenous piggybck nitroglycerin 0.4 mg sublingual 0.4 mg sublingual Q5M PRN chest 02/22/21 06/17/23 Rx tablet (Nitrostat) pain #25 tabs calcium carbonate 600 mg-vitamin 1 tab PO QAM 08/24/21 06/17/23 History D3 5 mcg (200 unit) tablet ondansetron 4 mg disintegrating 4 mg translingual Q12 PRN Nausea 08/24/21 1 History tablet acetaminophen 650 mg 650 mg PO Q8H PRN Pain 12/04/21 06/17/23 History tablet,extended release (Tylenol Arthritis Pain) folic acid 1 mg tablet 1 mg PO QAM 05/24/22 06/17/23 History silver sulfadiazine 1 % topical 1 applic topical DAILY #20 grams 11/01/22 Rx cream magnesium oxide 400 mg (241.3 mg 400 mg PO BID #180 tabs 12/05/22 06/17/23 Rx magnesium) tablet atorvastatin 40 mg tablet 40 mg PO QAM #90 tabs 02/25/23 06/17/23 Rx levothyroxine 75 mcg tablet 75 mcg PO QAM #90 tabs 02/25/23 06/17/23 Rx nortriptyline 10 mg capsule 10 mg PO QAM #90 caps 02/25/23 06/17/23 Rx escitalopram oxalate 20 mg tablet 20 mg PO QAM #90 tabs 02/26/23 06/17/23 Rx (Lexapro) nortriptyline 25 mg capsule 25 mg PO HS #90 caps 02/27/23 06/17/23 Rx metoprolol succinate 50 mg 50 mg PO DAILY #180 tabs 03/18/23 06/17/23 Rx tablet,extended release 24 hr valacyclovir 1 gram tablet 2,000 mg PO DAILY PRN Cold Sores 03/24/23 06/17/23 Rx #12 tabs montelukast 10 mg tablet 10 mg PO QAM #90 tabs 04/24/23 06/17/23 Rx (Singulair) potassium chloride 10 mEq 10 meq PO QAM #90 tabs 04/24/23 06/17/23 Rx tablet,extended release aspirin 81 mg tablet,delayed 81 mg PO QAM #90 tabs 05/20/23 06/17/23 Rx release celecoxib 200 mg capsule (Celebrex) 200 mg PO BID #180 caps 05/20/23 06/17/23 Rx lansoprazole 15 mg capsule,delayed 15 mg PO QAM #90 caps 05/20/23 06/17/23 Rx release (Prevacid 24Hr) albuterol sulfate 90 mcg/actuation 1 - 2 puff inhalation .Q 4-6 HRS 06/17/23 06/17/23 History aerosol inhaler (Ventolin HFA) PRN shortness of breath or wheezing Allergies Allergy/AdvReac Type Severity Reaction Status Date / Time bacitracin Allergy Intermediate Hives, Verified 03/24/23 10:51 blisters clavulanic acid Allergy Intermediate Hives Verified 03/24/23 10:51 diphenhydramine Allergy Intermediate Hives Verified 03/24/23 10:51 iodine Allergy Intermediate Hives Verified 03/24/23 10:51 ketorolac Allergy Intermediate Hives Verified 03/24/23 10:51 meclofenamic acid Allergy Intermediate Hives Verified 03/24/23 10:51 neomycin Allergy Intermediate Hives, Verified 03/24/23 10:51 blisters NSAIDS (Non-Steroidal Allergy Intermediate Hives Verified 03/24/23 10:51 Anti-Inflamma (tolerates Celebrex) oxycodone Allergy Intermediate Hives Verified 03/24/23 10:51 (tolerates Vicodin) polymyxin B Allergy Intermediate Hives, Verified 03/24/23 10:51 blisters quinine Allergy Intermediate Hives Verified 03/24/23 10:51 Sulfa (Sulfonamide Allergy Intermediate Hives Verified 03/24/23 10:51 Antibiotics) tramadol Allergy Intermediate Hives, Verified 03/24/23 10:51 itching adhesive Allergy Mild Rash Verified 03/24/23 10:51 doxycycline Allergy Mild Anaphylaxis Verified 03/24/23 10:51 hydroxychloroquine Allergy Mild Rash Verified 03/24/23 10:51 latex Allergy Mild Rash Verified 03/24/23 10:51 methotrexate Allergy Mild Rash Verified 03/24/23 10:51 povidone-iodine Allergy Mild Rash Verified 03/24/23 10:51 meperidine AdvReac Intermediate N/V Verified 03/24/23 10:51 prednisone AdvReac Intermediate Made Verified 03/24/23 10:51 "bones soft" aspirin AdvReac Mild N/V Verified 03/24/23 10:51 Past Med/Surg History Medical History Allergic rhinitis Anemia Anxiety and depression Asthma Cholangitis Cholecystitis with perforation of gallbladder Coronary artery disease Cardiac catheterization -02/22/2021:Impression: 1. Severe CAD involving ostial/proximal LAD (100%), filling via left to left and right to left collaterals. 2. Otherwise nonobstructive CAD involving the mid circumflex. 3. No aortic stenosis. 4. Normal left-sided filling pressure. COVID-19 Encounter for pre-operative examination GERD (gastroesophageal reflux disease) History of COVID-19 DX 05/2021 (NO SYMPTOMS>PT STATES WAS A FALSE POSITIVE) History of right breast cancer s/p lumpectomy (1969)- no chemo or xrt Hx of fracture Right shoulder AC joint fracture (10/2020) due to traumatic event > healing without surgical intervention Hyperlipidemia Hypertension Hypotension Hypothyroidism Hypoxia IBS (irritable bowel syndrome) Insomnia Ischemic cardiomyopathy Liver abscess Lumbar facet joint syndrome Lumbar spinal stenosis Rheumatoid arthritis Sacroiliitis Steroid-induced osteoporosis V-tach Volume overload Surgical History H/O arthroscopy of shoulder L shoulder H/O cataract extraction R/L eye History of arthroscopy of left knee History of biopsy History of breast biopsy History of cardiac cath NO - [facility] History of ERCP WITH STENT (NOT PRESENT) History of foot surgery R/L History of lumpectomy of right breast History of right knee joint replacement History of tonsillectomy History of total abdominal hysterectomy and bilateral salpingo-oophorectomy d/t endometriosis Nausea and vomiting after administration of anesthetic agent S/P ORIF (open reduction internal fixation) fracture Left ankle S/p reverse total shoulder arthroplasty Left reverse TSA (02/26/19): Grade view 2, MAC#3, ETT 7 + PNB at [facility] (scope patch used) Family History Grandmother (Paternal) Family history of diabetes mellitus Grandmother (Maternal) Family history of diabetes mellitus Father Coronary heart disease Alzheimer disease Myocardial infarction Osteoarthritis COPD (chronic obstructive pulmonary disease) Lung disease Mother Myocardial infarction COPD (chronic obstructive pulmonary disease) Other No family history of adverse response to anesthesia Denies family history of Ovarian cancer Prostate cancer Breast cancer Colorectal cancer Social History Smoking Status: Never smoker Second Hand Exposure: No; Do You Dip or Chew Tobacco: No; Hx Alcohol Use: No Hx Substance Use: No Preferred Language: Kyrgyz Communication Ability: Effective Visual Impairment: No Limitations Hearing Ability: Normal Finish Remover Required: No Beliefs That Will Affect Care: None marital status: Current Living Situation: Spouse and Family Current Living Situation Comment: Home with family current occupational status: retired How many Children do You have: 2 Feels Safe at Home: Yes Childhood Exposure to Second-Hand Smoke: Yes Diet: regular Diet Comment: regular caffeine: Yes (coffee) during the past year weight has: remained stable Dental Care, Regularly: No Physical Activity Frequency: Daily Physical Activity Frequency Comment: walking indoors Seatbelt Use: always Sunscreen Use: No Assistive Devices: Denture - Upper, Glasses and Wheelchair Physical Exam Vital Signs Vital Signs - 24 hr 06/17/23 13:21 06/17/23 14:02 06/17/23 14:14 Temperature 36.8 C Temperature Source Temporal Artery Scan Pulse Rate 121 H 101 H Respiratory Rate 20 Respiratory Effort / Characteristics Non-Labored Spontaneous Respiratory Depth Normal Respiratory Pattern Blood Pressure 85/60 L Blood Pressure Mean 68 Pulse Oximetry 93 94 Oxygen Delivery Method Room Air Room Air Sepsis Recent Fever Within 48 Hours No Sepsis New/Unexplained Change in Mental Status No Sepsis Action Taken by Nursing Physician Notified 06/17/23 14:14 06/17/23 18:25 Temperature Temperature Source Pulse Rate 88 Respiratory Rate 17 Respiratory Effort / Characteristics Non-Labored Spontaneous Respiratory Depth Normal Respiratory Pattern Regular Blood Pressure Blood Pressure Mean Pulse Oximetry 94 Oxygen Delivery Method Room Air Sepsis Recent Fever Within 48 Hours Sepsis New/Unexplained Change in Mental Status Sepsis Action Taken by Nursing Physical Exam GENERAL: Ill-appearing HENT: Exam performed. -Head: Normocephalic and atraumatic. EYES: Conjunctivae and EOM are normal. Pupils are equal, round, and reactive to light. Right eye exhibits no discharge. Left eye exhibits no discharge. No scleral icterus. NECK: Normal range of motion. Neck supple. No JVD present. CV: Normal rate, regular rhythm, normal heart sounds and intact distal pulses. There is no peripheral edema. Palpable radial pulses bue. PULM/CHEST: Effort normal and breath sounds normal. No respiratory distress. No stridor. She has no wheezes. She has no rales. ABD: The abdomen is soft. There is no tenderness. There is no rebound, no guarding Rectal: Hemoccult negative NEURO: She is alert and oriented to person, place, and time. Motor and sensation grossly intact SKIN: Pale Course Course 1331: The patient was evaluated in room C10. A complete history and physical exam was performed Cardiac monitoring: An order was placed for continuous cardiac monitoring. The monitor shows a rate of 90 with sinus rhythm interpreted by ut Sepsis protocols initiated Patient has an allergy to contrast and thus will be given Benadryl and steroids based off the protocol. 1410: Patient's creatinine on [id number] i-STAT is elevated. Will change CT to CT without contrast. Blood pressure is improving with IV fluids. 1430: Blood pressure improved with IV fluids. 30 cc/kg bolus initiated on the patient. Lactic acid is elevated. Broad-spectrum antibiotics cefepime ordered for the patient. 1520: Vital signs stable. Labs show leukocytosis of 18.27. Hemoglobin 11. VBG within normal limits. Creatinine 1.85. Procalcitonin 32.17. Urinalysis does not appear to be infected. CT abdomen pelvis showed colitis. Patient will be admitted to the [facility] hospitalist team will discuss with the hospitalist if they want additional antibiotics or want to wait for stool C. difficile and stool BioFire before beginning additional antibiotics other than the cefepime that was given. Administered Medications Lactated Ringer's (Lr) 1,000 mls @ 100 mls/hr IV .Q10H SIDDHARTHA Stop: 06/18/23 13:59 Last Admin: 06/17/23 18:26 Dose: 100 mls/hr Documented By: DANDRE Metronidazole (Flagyl) 500 mg in 100 mls @ 100 mls/hr IV Q8H SIDDHARTHA; Protocol Stop: 06/27/23 17:59 Last Admin: 06/17/23 18:26 Dose: 100 mls/hr Documented By: DANDRE Discontinued Medications Diphenhydramine HCl (Diphenhydramine 50 Mg/Ml Vial) 50 mg IV ONE ONE Stop: 06/17/23 13:48 Last Admin: 06/17/23 14:00 Dose: 50 mg Documented By: DAHIANA Sodium Chloride (Nss) 1,000 mls @ 999 mls/hr IV .Q1H1M SIDDHARTHA Stop: 06/17/23 14:45 Last Infusion: 06/17/23 16:50 Dose: 0 mls/hr Documented By: Admin: 06/17/23 13:59 Dose: 999 mls/hr Documented By: DAHIANA Magnesium Sulfate/Dextrose (Magnesium Sulfate / D5w) 1 gm in 100 mls @ 100 mls/hr IV Q1H SIDDHARTHA Stop: 06/17/23 16:23 Last Infusion: 06/17/23 17:51 Dose: 0 mls/hr Documented By: Admin: 06/17/23 16:27 Dose: 100 mls/hr Documented By: Infusion: 06/17/23 15:51 Dose: 100 mls/hr Documented By: Admin: 06/17/23 14:51 Dose: 100 mls/hr Documented By: DANDRE Cefepime HCl (Maxipime) 2,000 mg in 20 mls @ 5 mls/min IV [facility]; Protocol Stop: 06/17/23 14:35 Last Admin: 06/17/23 14:51 Dose: 5 mls/min Documented By: DANDRE Sodium Chloride (Nss) 1,000 mls @ 999 mls/hr IV .Q1H1M ONE Stop: 06/17/23 16:05 Last Infusion: 06/17/23 18:23 Dose: 0 mls/hr Documented By: Admin: 06/17/23 16:27 Dose: 999 mls/hr Documented By: DANDRE Methylprednisolone (Methylprednisolone 40 Mg/Ml Vial) 40 mg IV NOW ONE Stop: 06/17/23 13:48 Last Admin: 06/17/23 14:01 Dose: 40 mg Documented By: DAHIANA Medical Decision Making Laboratory Data Attestation: I reviewed the patient's lab results. 06/17/23 13:33 06/17/23 13:33 Lab Results 06/17/23 06/17/23 06/17/23 Range/Units 13:17 13:33 13:33 WBC 18.27 H (4.8-10.8) K/ul RBC 3.09 L (4.20-5.40) M/uL Hgb 11.0 L (12.0-16.0) g/dl POC Hgb (12.0-16.0) g/dl Hct 31.8 L (37.0-47.0) % POC Hct (37-47) % MCV 102.9 H (80.0-100.0) fL MCH 35.6 H (25.0-34.0) pg MCHC 34.6 (32.0-36.0) g/dL RDW Std Deviation 62.9 H (36.4-46.3) fL RDW Coeff of Ender 16.9 H (11.5-14.5) % Plt Count 119 L (130-400) K/uL MPV 11.1 (9.4-12.4) fL Immature Gran % (Auto) 0.5 % Neut % (Auto) 83.0 % Lymph % (Auto) 11.4 % [place] % (Auto) 4.3 % Eos % (Auto) 0.1 % Baso % (Auto) 0.7 % Neut # (Auto) 15.15 H (1.40-6.50) K/uL Lymph # (Auto) 2.09 (1.20-3.40) K/uL [place] # (Auto) 0.79 H (0.11-0.59) K/uL Eos # (Auto) 0.02 (0.00-0.50) K/uL Baso # (Auto) 0.12 (0.00-0.20) K/uL Immature Gran # (Auto) 0.10 (0.01-0.20) K/uL Polychromasia 1+ Poikilocytosis Present Tear Drop Cells 1+ Ovalocytes 1+ PT 16.3 H (9.0-12.0) Seconds INR 1.5 H (0.9-1.1) APTT 40.3 H* (21.0-31.0) Seconds PTT Ratio 1.4 VBG pH (7.36-7.41) VBG pCO2 (38-50) mmHg VBG pO2 mmHg VBG HCO3 mmol/L VBG O2 Saturation % VBG Base Excess mEq/L POC Sodium (135-144) mmol/L Sodium (136-145) mmol/L POC Potassium (3.3-5.0) mmol/L Potassium (3.5-5.1) mmol/L POC Chloride (101-112) mmol/L Chloride (98-107) mmol/L Carbon Dioxide (21-32) mmol/L POC Total CO2 (24-31) mmol/L Anion Gap (3-11) POC Anion Gap (16-25) mmol/L POC BUN (7-18) mg/dl BUN (6-23) mg/dl Creatinine (0.6-1.2) mg/dl POC Creatinine (0.6-1.3) mg/dl Est Cr Clr Drug Dosing Est GFR ( Amer) ml/min Est GFR (Non-Af Amer) ml/min BUN/Creatinine Ratio (10-20) Glucose (70-99(Fasting)) mg/dl POC Glucose (other) (70-99) mg/dl Lactate (0.4-2.0) mmol/L Calcium (8.6-10.3) mg/dl POC Ioniz Calcium [place] Antonio (1.12-1.32) mmol/l Phosphorus (2.5-4.9) mg/dl Magnesium (1.7-2.4) mg/dl Total Bilirubin (0.2-1.0) mg/dl Direct Bilirubin (0-0.2) mg/dl AST (13-39) U/L ALT (7-52) U/L Alkaline Phosphatase (34-104) U/L Lactate Dehydrogenase (86-244) U/L Total Protein (6.0-8.3) gm/dl Albumin (3.4-5.0) gm/dl Lipase (11-82) U/L Procalcitonin (0-0.5) ng/ml Urine Color Urine Appearance (Clear) Urine pH (4.5-7.5) Ur Specific [place] (1.000-1.030) Urine Protein (Negative) Urine Glucose (UA) (Negative) Urine Ketones (Negative) Urine Blood (Negative) Urine Nitrite (Negative) Urine Bilirubin (Negative) Urine Urobilinogen (Negative) Ur Leukocyte Esterase (Negative) Urine WBC (Auto) (0-5) /hpf Urine RBC (Auto) (0-4) /hpf U Hyaline Cast (Auto) (0-5) /lpf U Epithel Cells (Auto) (0-5) /lpf Urine Bacteria (Auto) (Negative) Ur Renal Epithelial Cell Amorphous Sediment (None Prsent) Granular Casts (0) /lpf Urine Mucus (None Prsent) SARS-CoV-2 (PCR) NEGATIVE (Negative) Influenza Type A (PCR) Negative (Neg) Influenza Type B (PCR) Negative (Neg) RSV (RT-PCR) Negative (Neg) Blood Type Antibody Screen 06/17/23 06/17/23 06/17/23 Range/Units 13:33 13:33 13:52 WBC (4.8-10.8) K/ul RBC (4.20-5.40) M/uL Hgb (12.0-16.0) g/dl POC Hgb (12.0-16.0) g/dl Hct (37.0-47.0) % POC Hct (37-47) % MCV (80.0-100.0) fL MCH (25.0-34.0) pg MCHC (32.0-36.0) g/dL RDW Std Deviation (36.4-46.3) fL RDW Coeff of Ender (11.5-14.5) % Plt Count (130-400) K/uL MPV (9.4-12.4) fL Immature Gran % (Auto) % Neut % (Auto) % Lymph % (Auto) % [place] % (Auto) % Eos % (Auto) % Baso % (Auto) % Neut # (Auto) (1.40-6.50) K/uL Lymph # (Auto) (1.20-3.40) K/uL [place] # (Auto) (0.11-0.59) K/uL Eos # (Auto) (0.00-0.50) K/uL Baso # (Auto) (0.00-0.20) K/uL Immature Gran # (Auto) (0.01-0.20) K/uL Polychromasia Poikilocytosis Tear Drop Cells Ovalocytes PT (9.0-12.0) Seconds INR (0.9-1.1) APTT (21.0-31.0) Seconds PTT Ratio VBG pH (7.36-7.41) VBG pCO2 (38-50) mmHg VBG pO2 mmHg VBG HCO3 mmol/L VBG O2 Saturation % VBG Base Excess mEq/L POC Sodium (135-144) mmol/L Sodium 135 L (136-145) mmol/L POC Potassium (3.3-5.0) mmol/L Potassium 3.8 (3.5-5.1) mmol/L POC Chloride (101-112) mmol/L Chloride 106 (98-107) mmol/L Carbon Dioxide 21 (21-32) mmol/L POC Total CO2 (24-31) mmol/L Anion Gap 8 (3-11) POC Anion Gap (16-25) mmol/L POC BUN (7-18) mg/dl BUN 24 H (6-23) mg/dl Creatinine 1.85 H (0.6-1.2) mg/dl POC Creatinine (0.6-1.3) mg/dl Est Cr Clr Drug Dosing Not Reportable Est GFR ( Amer) 31.2 ml/min Est GFR (Non-Af Amer) 26.9 ml/min BUN/Creatinine Ratio 13.0 (10-20) Glucose 83 (70-99(Fasting)) mg/dl POC Glucose (other) (70-99) mg/dl Lactate (0.4-2.0) mmol/L Calcium 7.7 L (8.6-10.3) mg/dl POC Ioniz Calcium [place] Antonio (1.12-1.32) mmol/l Phosphorus 4.2 (2.5-4.9) mg/dl Magnesium 1.5 L (1.7-2.4) mg/dl Total Bilirubin 1.1 H (0.2-1.0) mg/dl Direct Bilirubin 0.7 H (0-0.2) mg/dl AST 36 (13-39) U/L ALT 47 (7-52) U/L Alkaline Phosphatase 285 H (34-104) U/L Lactate Dehydrogenase 344 H (86-244) U/L Total Protein 5.7 L (6.0-8.3) gm/dl Albumin 2.3 L (3.4-5.0) gm/dl Lipase 11 (11-82) U/L Procalcitonin 32.17 H (0-0.5) ng/ml Urine Color Dark Yellow Urine Appearance Turbid A (Clear) Urine pH 5.5 (4.5-7.5) Ur Specific [place] 1.027 (1.000-1.030) Urine Protein 2+ H (Negative) Urine Glucose (UA) Negative (Negative) Urine Ketones Negative (Negative) Urine Blood 3+ H (Negative) Urine Nitrite Positive A (Negative) Urine Bilirubin 2+ H (Negative) Urine Urobilinogen Negative (Negative) Ur Leukocyte Esterase Trace H (Negative) Urine WBC (Auto) 5-10 H (0-5) /hpf Urine RBC (Auto) 5-10 H (0-4) /hpf U Hyaline Cast (Auto) 10-30 H (0-5) /lpf U Epithel Cells (Auto) >30 H (0-5) /lpf Urine Bacteria (Auto) Negative (Negative) Ur Renal Epithelial Cell Not Reportable Amorphous Sediment Present A (None Prsent) Granular Casts 5-10 H (0) /lpf Urine Mucus Present A (None Prsent) SARS-CoV-2 (PCR) (Negative) Influenza Type A (PCR) (Neg) Influenza Type B (PCR) (Neg) RSV (RT-PCR) (Neg) Blood Type Antibody Screen 06/17/23 06/17/23 06/17/23 Range/Units 13:57 14:06 14:21 WBC (4.8-10.8) K/ul RBC (4.20-5.40) M/uL Hgb (12.0-16.0) g/dl POC Hgb 11.2 L (12.0-16.0) g/dl Hct (37.0-47.0) % POC Hct 33 L (37-47) % MCV (80.0-100.0) fL MCH (25.0-34.0) pg MCHC (32.0-36.0) g/dL RDW Std Deviation (36.4-46.3) fL RDW Coeff of Ender (11.5-14.5) % Plt Count (130-400) K/uL MPV (9.4-12.4) fL Immature Gran % (Auto) % Neut % (Auto) % Lymph % (Auto) % [place] % (Auto) % Eos % (Auto) % Baso % (Auto) % Neut # (Auto) (1.40-6.50) K/uL Lymph # (Auto) (1.20-3.40) K/uL [place] # (Auto) (0.11-0.59) K/uL Eos # (Auto) (0.00-0.50) K/uL Baso # (Auto) (0.00-0.20) K/uL Immature Gran # (Auto) (0.01-0.20) K/uL Polychromasia Poikilocytosis Tear Drop Cells Ovalocytes PT (9.0-12.0) Seconds INR (0.9-1.1) APTT (21.0-31.0) Seconds PTT Ratio VBG pH 7.36 (7.36-7.41) VBG pCO2 38 (38-50) mmHg VBG pO2 < 20 mmHg VBG HCO3 22 mmol/L VBG O2 Saturation < 60.0 % VBG Base Excess -3.6 mEq/L POC Sodium 134 L (135-144) mmol/L Sodium (136-145) mmol/L POC Potassium 3.8 (3.3-5.0) mmol/L Potassium (3.5-5.1) mmol/L POC Chloride 106 (101-112) mmol/L Chloride (98-107) mmol/L Carbon Dioxide (21-32) mmol/L POC Total CO2 18 L (24-31) mmol/L Anion Gap (3-11) POC Anion Gap 16.0 (16-25) mmol/L POC BUN 20 H (7-18) mg/dl BUN (6-23) mg/dl Creatinine (0.6-1.2) mg/dl POC Creatinine 2.1 H (0.6-1.3) mg/dl Est Cr Clr Drug Dosing Est GFR ( Amer) ml/min Est GFR (Non-Af Amer) ml/min BUN/Creatinine Ratio (10-20) Glucose (70-99(Fasting)) mg/dl POC Glucose (other) 67 L* (70-99) mg/dl Lactate 3.2 H* (0.4-2.0) mmol/L Calcium (8.6-10.3) mg/dl POC Ioniz Calcium [place] 0.69 L* (1.12-1.32) mmol/l Phosphorus (2.5-4.9) mg/dl Magnesium (1.7-2.4) mg/dl Total Bilirubin (0.2-1.0) mg/dl Direct Bilirubin (0-0.2) mg/dl AST (13-39) U/L ALT (7-52) U/L Alkaline Phosphatase (34-104) U/L Lactate Dehydrogenase (86-244) U/L Total Protein (6.0-8.3) gm/dl Albumin (3.4-5.0) gm/dl Lipase (11-82) U/L Procalcitonin (0-0.5) ng/ml Urine Color Urine Appearance (Clear) Urine pH (4.5-7.5) Ur Specific [place] (1.000-1.030) Urine Protein (Negative) Urine Glucose (UA) (Negative) Urine Ketones (Negative) Urine Blood (Negative) Urine Nitrite (Negative) Urine Bilirubin (Negative) Urine Urobilinogen (Negative) Ur Leukocyte Esterase (Negative) Urine WBC (Auto) (0-5) /hpf Urine RBC (Auto) (0-4) /hpf U Hyaline Cast (Auto) (0-5) /lpf U Epithel Cells (Auto) (0-5) /lpf Urine Bacteria (Auto) (Negative) Ur Renal Epithelial Cell Amorphous Sediment (None Prsent) Granular Casts (0) /lpf Urine Mucus (None Prsent) SARS-CoV-2 (PCR) (Negative) Influenza Type A (PCR) (Neg) Influenza Type B (PCR) (Neg) RSV (RT-PCR) (Neg) Blood Type Antibody Screen 06/17/23 06/17/23 Range/Units 14:21 16:26 WBC (4.8-10.8) K/ul RBC (4.20-5.40) M/uL Hgb (12.0-16.0) g/dl POC Hgb (12.0-16.0) g/dl Hct (37.0-47.0) % POC Hct (37-47) % MCV (80.0-100.0) fL MCH (25.0-34.0) pg MCHC (32.0-36.0) g/dL RDW Std Deviation (36.4-46.3) fL RDW Coeff of Ender (11.5-14.5) % Plt Count (130-400) K/uL MPV (9.4-12.4) fL Immature Gran % (Auto) % Neut % (Auto) % Lymph % (Auto) % [place] % (Auto) % Eos % (Auto) % Baso % (Auto) % Neut # (Auto) (1.40-6.50) K/uL Lymph # (Auto) (1.20-3.40) K/uL [place] # (Auto) (0.11-0.59) K/uL Eos # (Auto) (0.00-0.50) K/uL Baso # (Auto) (0.00-0.20) K/uL Immature Gran # (Auto) (0.01-0.20) K/uL Polychromasia Poikilocytosis Tear Drop Cells Ovalocytes PT (9.0-12.0) Seconds INR (0.9-1.1) APTT (21.0-31.0) Seconds PTT Ratio VBG pH (7.36-7.41) VBG pCO2 (38-50) mmHg VBG pO2 mmHg VBG HCO3 mmol/L VBG O2 Saturation % VBG Base Excess mEq/L POC Sodium (135-144) mmol/L Sodium (136-145) mmol/L POC Potassium (3.3-5.0) mmol/L Potassium (3.5-5.1) mmol/L POC Chloride (101-112) mmol/L Chloride (98-107) mmol/L Carbon Dioxide (21-32) mmol/L POC Total CO2 (24-31) mmol/L Anion Gap (3-11) POC Anion Gap (16-25) mmol/L POC BUN (7-18) mg/dl BUN (6-23) mg/dl Creatinine (0.6-1.2) mg/dl POC Creatinine (0.6-1.3) mg/dl Est Cr Clr Drug Dosing Est GFR ( Amer) ml/min Est GFR (Non-Af Amer) ml/min BUN/Creatinine Ratio (10-20) Glucose (70-99(Fasting)) mg/dl POC Glucose (other) (70-99) mg/dl Lactate 2.8 H* (0.4-2.0) mmol/L Calcium (8.6-10.3) mg/dl POC Ioniz Calcium [place] (1.12-1.32) mmol/l Phosphorus (2.5-4.9) mg/dl Magnesium (1.7-2.4) mg/dl Total Bilirubin (0.2-1.0) mg/dl Direct Bilirubin (0-0.2) mg/dl AST (13-39) U/L ALT (7-52) U/L Alkaline Phosphatase (34-104) U/L Lactate Dehydrogenase (86-244) U/L Total Protein (6.0-8.3) gm/dl Albumin (3.4-5.0) gm/dl Lipase (11-82) U/L Procalcitonin (0-0.5) ng/ml Urine Color Urine Appearance (Clear) Urine pH (4.5-7.5) Ur Specific [place] (1.000-1.030) Urine Protein (Negative) Urine Glucose (UA) (Negative) Urine Ketones (Negative) Urine Blood (Negative) Urine Nitrite (Negative) Urine Bilirubin (Negative) Urine Urobilinogen (Negative) Ur Leukocyte Esterase (Negative) Urine WBC (Auto) (0-5) /hpf Urine RBC (Auto) (0-4) /hpf U Hyaline Cast (Auto) (0-5) /lpf U Epithel Cells (Auto) (0-5) /lpf Urine Bacteria (Auto) (Negative) Ur Renal Epithelial Cell Amorphous Sediment (None Prsent) Granular Casts (0) /lpf Urine Mucus (None Prsent) SARS-CoV-2 (PCR) (Negative) Influenza Type A (PCR) (Neg) Influenza Type B (PCR) (Neg) RSV (RT-PCR) (Neg) Blood Type A Negative Antibody Screen NEGATIVE Imaging Data Attestation: I personally reviewed and interpreted this imaging study as follows: My Impression: Chest x-ray negative. Airway clear. No pneumothorax. No consolidation. No cardiomegaly or cephalization.. No free air under the diaphragm. No fractures of the skeletal structures. Radiologist's Impression: Chest X-Ray 06/17/23 13:31 XR chest 1V portable CLINICAL HISTORY: Sepsis TECHNIQUE: Single frontal radiograph of the chest was obtained. Comparison: Comparison is made to chest radiograph 10/19/2021 FINDINGS: Bilateral shoulder arthroplasties are seen. The cardiomediastinal silhouette is normal. The lungs are clear. No evidence of pleural effusion or pneumothorax. Old healed left rib fracture. IMPRESSION: No acute abnormalities and in particular no radiographic evidence of pneumonia. ACT 112: Negative or not required by law. Electronically signed by: Vicente Edwards M.D. 06/17/2023 3:09 PM Abdomen/Pelvis CT 06/17/23 14:09 CT OF THE ABDOMEN AND PELVIS WITHOUT CONTRAST CLINICAL HISTORY: Abdominal pain, nausea and vomiting. COMPARISON STUDY: CT of the abdomen and pelvis October 17, 2021. TECHNIQUE: Axial images of the abdomen and pelvis were obtained without IV contrast. Images were reviewed in the axial, sagittal, and coronal planes. Automated exposure control was utilized for the study. A dose lowering technique was utilized adhering to the principles of ALARA. FINDINGS: There are trace bilateral pleural effusions. Subpleural opacities favor atelectasis. No pneumatosis, free air or portal venous gas is present. This exam is compromised by the lack of IV contrast and artifact from from arms overlying the abdomen. No pneumatosis, free air or portal venous gas is present. Liver contour is slightly lobulated. A small amount of perihepatic ascites is noted. Small amount of ascites within the right paracolic gutter is also present. Fluid attenuation density within the gallbladder fossa with irregular contour likely reflects the gallbladder. There is no biliary or pancreatic ductal dilatation. Spleen, adrenal glands and kidneys are normal. There is no hydronephrosis. A few hypodense hepatic lesions favor cysts. The appendix is normal. There is no evidence for a bowel obstruction. Mild pericolonic stranding is most evident adjacent to the sigmoid colon. There may be mild wall thickening within portions of the colon. The findings favor a nonspecific colitis. No fluid collections are present. Small bowel diverticulosis is also noted. Tethered appearance of small bowel loops within the pelvis is unchanged since CT of August 24, 2021. This does not result in a bowel obstruction. Multiple old lower thoracic and lumbar spine fractures are unchanged. No acute fractures are identified within the lumbar spine, pelvis or hips. IMPRESSION: 1. Findings suggestive of a nonspecific colitis. Mild pericolonic stranding and colonic wall thickening. 2. Exam compromised given artifact and lack of IV contrast, as described above. No bowel obstruction. No pneumatosis, free air or portal venous gas. 3. Small amount of ascites. 4. Trace bilateral pleural effusions. Subpleural opacities suggestive of atelectasis. 5. Possible cirrhosis. ACT 112: Negative or not required by law. Electronically signed by: Rodney Gilbert M.D. 06/17/2023 3:13 PM ECG Data Attestation: I personally reviewed and interpreted this ECG as follows: Rate (beats per minute): 109 Rhythm: + sinus tachycardia ECG Intervals/blocks: + Normal QRS, + Normal MT and + Normal QT-c ECG ST segments: + Normal ST segments MDM Narrative 1331: The patient was evaluated in room C10. A complete history and physical exam was performed Cardiac monitoring: An order was placed for continuous cardiac monitoring. The monitor shows a rate of 90 with sinus rhythm interpreted by ut Sepsis protocols initiated Patient has an allergy to contrast and thus will be given Benadryl and steroids based off the protocol. 1410: Patient's creatinine on [id number] i-STAT is elevated. Will change CT to CT without contrast. Blood pressure is improving with IV fluids. 1430: Blood pressure improved with IV fluids. 30 cc/kg bolus initiated on the patient. Lactic acid is elevated. Broad-spectrum antibiotics cefepime ordered for the patient. 1520: Vital signs stable. Labs show leukocytosis of 18.27. Hemoglobin 11. VBG within normal limits. Creatinine 1.85. Procalcitonin 32.17. Urinalysis does not appear to be infected. CT abdomen pelvis showed colitis. Patient will be admitted to the [facility] hospitalist team will discuss with the hospitalist if they want additional antibiotics or want to wait for stool C. difficile and stool BioFire before beginning additional antibiotics other than the cefepime that was given. Impression & Plan Sepsis Discharge Plan Visit Data Chief Complaint: Weakness Stated Complaint: WEAKNESS,UPSET STOMACH ED Provider: Avni Menezes Discharge Problem: Sepsis Patient Disposition: Admitted As Inpatient Forms Stand Alone Forms: My [facility] Prescriptions Prescriptions: No Action acetaminophen [Tylenol Arthritis Pain] 650 mg tablet extended release 650 mg PO Q8H PRN (Reason: Pain) magnesium oxide 400 mg (241.3 mg magnesium) tablet 400 mg PO BID Qty: 180 1RF levothyroxine 75 mcg tablet 75 mcg PO QAM Qty: 90 1RF nortriptyline 10 mg capsule 10 mg PO QAM Qty: 90 1RF atorvastatin 40 mg tablet 40 mg PO QAM Qty: 90 1RF escitalopram oxalate [Lexapro] 20 mg tablet 20 mg PO QAM Qty: 90 1RF nortriptyline 25 mg capsule 25 mg PO HS Qty: 90 2RF metoprolol succinate 50 mg tablet extended release 24 hr 50 mg PO DAILY Qty: 180 3RF potassium chloride 10 mEq tablet extended release 10 meq PO QAM Qty: 90 1RF montelukast [Singulair] 10 mg tablet 10 mg PO QAM Qty: 90 1RF lansoprazole [Prevacid 24Hr] 15 mg capsule,delayed release(DR/EC) 15 mg PO QAM Qty: 90 1RF Rx Instructions: TAKE 1 CAPSULE BY MOUTH EVERY DAY aspirin 81 mg tablet,delayed release (DR/EC) 81 mg PO QAM Qty: 90 1RF celecoxib [Celebrex] 200 mg capsule 200 mg PO BID Qty: 180 1RF zoledronic gmsx-tjgnedrs-gtxri 5 mg/100 mL piggyback 5 mg/kg IV YEARLY Rx Instructions: TAKE THIS MED ONCE EVERY YEAR IN NOVEMBER. valacyclovir 1 gram tablet 2,000 mg PO DAILY PRN (Reason: Cold Sores) Qty: 12 1RF silver sulfadiazine 1 % cream 1 applic topical DAILY Qty: 20 0RF Rx Instructions: apply a 1.5 mm thickness docusate sodium 100 mg Capsule 100 mg PO BID PRN (Reason: Constipation) nitroglycerin [Nitrostat] 0.4 mg Tablet, Sublingual 0.4 mg sublingual Q5M PRN (Reason: chest pain) Qty: 25 3RF Rx Instructions: can take 1 tablet every 5 minutes for up to 3 total doses. Call 911 for chest pain that does not resolve after 1st dose. calcium carbonate-vitamin D3 600 mg-5 mcg (200 unit) Tablet 1 tab PO QAM ondansetron 4 mg tablet,disintegrating 4 mg translingual Q12 PRN (Reason: Nausea) Rx Instructions: Place 1 tablet on tongue every 12 hours as needed for nausea. folic acid 1 mg tablet 1 mg PO QAM albuterol sulfate [Ventolin HFA] 90 mcg/actuation HFA aerosol inhaler 1 - 2 puff inhalation .Q 4-6 HRS PRN (Reason: shortness of breath or wheezing) Rx Instructions: 1-2 puffs inhalation 1 puff INH every 4-6 hrs; PRN; Referrals Referrals: Tayla Kent DO [Primary Care Provider] -
[2023-06-17 19:40] LABS: Lyme Ab IgG w/WB Rflx Negative (Negative); Lyme Ab IgM w/WB Rflx Negative (Negative)
[2023-06-17 20:13] LABS: Fibrinogen 433 mg/dl (184-400)
[2023-06-17 20:20] LABS: D Dimer 3800 ug/L FEU (0-500)
[2023-06-17] MEDS ORDERED: ALBUTEROL HFA 8 GM INHALER INH PRN (20:30)
--- NOTE | 2023-06-17 20:39 | Communication Note ---
Date of Service: June 17, 2023 Review of the patient's DIC workup to this point shows a D-dimer of 3800, LDH of 344, Fibrinogen of 433 with Haptoglobin and peripheral still in process. While the majority of her DIC workup matches possible DIC, her fibrinogen is elevated, she is without signs of bleeding, has been stable since admission, and is alert and oriented on re-examination. Her elevated D-dimer, INR, aPTT, PTT, and thrombocytopenia could all be associated with acute phase reactants from her severe sepsis. Will continue to follow the peripheral smear and haptoglobin, as-well-as treat her sepsis with broad spectrum abx and IV fluids. Additionally, her PTH is significantly elevated at 361. This is concerning for possible malignancy. Will get a heme/onc consult for further assistance with evaluation. The plan was discussed with Dr. Latif and the night medicine team. Will speak with his nurse to monitor for signs of bleeding and to notify the covering provider with any concerns for bleeding.
[2023-06-17] MEDS ORDERED: NORTRIPTYLINE HCL 25 MG CAP PO SCH (21:00)
[2023-06-17] MEDS: MAGNESIUM OXIDE 400 MG TAB PO SCH (21:53)
[2023-06-17] MEDS: CALCIUM CARBONATE 1250MG TAB PO SCH (21:53)
[2023-06-18] MEDS: metroNIDAZOLE 500 MG/100 ML BAG IV SCH ×2 (02:24→16:09)
[2023-06-18 04:33] LABS: Hematocrit (blood only) 29.7 % (37.0-47.0); Hemoglobin 10.3 g/dl (12.0-16.0); Mean Corpuscular Hgb Conc 34.7 g/dL (32.0-36.0); Nucleated RBC # (auto) 0.02 K/uL (0.00-0.12); Nucleated RBC % (auto) 0.1 %; Platelet Count 113 K/uL (130-400); RDW Coefficient of Variation 16.5 % (11.5-14.5); RDW Standard Deviation 60.5 fL (36.4-46.3); Red Blood Count 2.94 M/uL (4.20-5.40); White Blood Count 13.92 K/ul (4.8-10.8)
[2023-06-18 04:59] LABS: Albumin Globulin Ratio 0.7 (0.9-2); Albumin Level 2.1 gm/dl (3.4-5.0); BUN Creatinine Ratio 14.1 (10-20); Calcium 7.1 mg/dl (8.6-10.3); Creatinine Clr Calc Pharmacy 25.2 ml/min; Est GFR (African American) 34.6 ml/min; Est GFR (Non-African American) 29.8 ml/min; Globulin 3.1 gm/dl (2.5-4.0); Magnesium 2.2 mg/dl (1.7-2.4); Potassium 4.6 mmol/L (3.5-5.1); Total Protein 5.2 gm/dl (6.0-8.3)
[2023-06-18 05:01] LABS: INR 1.5 (0.9-1.1); Prothrombin Time 15.6 Seconds (9.0-12.0)
[2023-06-18] MEDS: CEFEPIME 1,000 MG in SYRINGE 0 ML IV SCH ×2 (05:02→17:19)
[2023-06-18] MEDS: LACTATED RINGER'S 1,000 ML IV SCH (05:06)
[2023-06-18 05:11] LABS: Basophils # (auto) 0.05 K/uL (0.00-0.20); Basophils % (auto) 0.4 %; Echinocytes 2+; Immature Granulocytes # (auto) 0.08 K/uL (0.01-0.20); Immature Granulocytes % (auto) 0.6 %; Lymphocytes # (auto) 1.08 K/uL (1.20-3.40); Lymphocytes % (auto) 7.8 %; Monocytes # (auto) 0.32 K/uL (0.11-0.59); Monocytes % (auto) 2.3 %; Neutrophils # (auto) 12.39 K/uL (1.40-6.50); Neutrophils % (auto) 88.9 %
[2023-06-18] MEDS ORDERED: LEVOTHYROXINE SODIUM 75 MCG TABLET PO SCH (06:30)
[2023-06-18] MEDS ORDERED: STAT IV/IM STA ×2 (08:33→23:39)
[2023-06-18] MEDS ORDERED: NORTRIPTYLINE HCL 10 MG CAP PO SCH (09:00)
[2023-06-18] MEDS ORDERED: ESCITALOPRAM OXALATE 20 MG TAB PO SCH (09:00)
[2023-06-18] MEDS: CARBOHYDRATES FOR HYPOGLYCEMIA PO PRN (09:22)
[2023-06-18] MEDS: CALCIUM GLUCONATE 10% 1,000 MG in SODIUM CHLOR 0.9% MINI-B 50 ML IV SCH ×2 (09:45→10:05)
[2023-06-18] MEDS: D5W AND NSS 1,000 ML IV SCH ×2 (09:45→20:19)
[2023-06-18] MEDS: MAGNESIUM OXIDE 400 MG TAB PO SCH ×2 (10:05→20:23)
[2023-06-18] MEDS: CALCIUM CARBONATE 1250MG TAB PO SCH ×3 (10:05→20:23)
[2023-06-18] MEDS: ONDANSETRON INJ 2 MG/ML 2 ML VIAL IV PRN (11:38)
[2023-06-18 11:48] LABS: Cdiff Toxin B Gene (2yr or >) Positive Cdiff Gene (Neg)
[2023-06-18 12:09] LABS: Cdiff Antigen Negative; Cdiff Toxin A+B Negative Cdiff Toxin (Negative)
[2023-06-18 12:10] LABS: Adenovirus F 40/41 PCR Not Detected (NotDetected); Astrovirus PCR Not Detected (NotDetected); Campylobacter PCR Not Detected (NotDetected); Cryptosporidium PCR Not Detected (NotDetected); Cyclospora cayetanensis PCR Not Detected (NotDetected); Entamoeba histolytica PCR Not Detected (NotDetected); Enteroaggregative E.coli(EAEC) Not Detected (NotDetected); Enteropathogenic E.coli (EPEC) Not Detected (NotDetected); Enterotoxigenic E.coli (ETEC) Not Detected (NotDetected); Giardia lamblia PCR Not Detected (NotDetected); Norovirus GI/GII PCR Not Detected (NotDetected); Plesiomonas shigelloides PCR Not Detected (NotDetected); Rotavirus A PCR Not Detected (NotDetected); Salmonella PCR Not Detected (NotDetected); Sapovirus PCR Not Detected (NotDetected); Shiga-like Toxin E.coli (STEC) Not Detected (NotDetected); Shigella/Enteroinvasive E.coli Not Detected (NotDetected); Vibrio cholerae PCR Not Detected (NotDetected); Vibrio species PCR Not Detected (NotDetected); Yersinia enterocolitica PCR Not Detected (NotDetected)
[2023-06-18] MEDS: ASPIRIN 81 MG ECTAB PO SCH (13:13)
[2023-06-18] MEDS: METOPROLOL SUCC 50MG EXT REL TAB PO SCH (13:14)
--- NOTE | 2023-06-18 13:40 | Hospitalist Progress Note ---
Date of Service June 18, 2023 Assessment & Plan (1) Severe sepsis: Plan: Present on admission. Continue IV fluids. Treat C. difficile enteritis. (2) Colitis: Plan: C. difficile isolated causing enteritis. Oral vancomycin therapy started. Continue IV fluids for now (3) Renal failure: Plan: Acute kidney injury probably from volume depletion. Continue IV fluids. Monitor intake and output. Serial lab (4) Thrombocytopenia: Plan: Mild. Probably due to active infection. Serial labs (5) Elevated INR: Plan: Mild. We will follow (6) Hypocalcemia: Plan: Parenteral replacement ordered. Serial labs. Continue oral replacement therapy (7) Elevated bilirubin: Plan: Minimal. No intervention necessary. We will follow (8) Hypomagnesemia: Plan: Parenteral replacement. Serial labs l (9) Hypoglycemia: Plan: Continue IV fluids with dextrose. Accu-Cheks before meals and at bedtime. (10) HFrEF (heart failure with reduced ejection fraction): Plan: Known ejection fraction of 40 to 45%. No evidence of overt CHF at this time. Monitor intake and output. (11) Hypothyroidism: Plan: Stable. Continue levothyroxine (12) Hypertension: Plan: Stable. Continue current medical management (13) GERD (gastroesophageal reflux disease): Plan: Stable. Continue PPI Plan Hopeful discharge to home soon. OT and PT assessments requested Admission and Anticipated Discharge Date Admission Date: June 17, 2023 Subjective Suspected C. difficile enteritis. She is now on oral vancomycin. Continue IV fluids White blood cell count is down to 13,000. Platelet count slightly low but acceptable. Creatinine 1.7 which is better than admission. Mild hypomagnesemia corrected to 2.2. Calcium remains low. IV calcium ordered. Review of Systems Review of Systems: Constitutional-no fever or chills ENT-no blurred vision, no double vision, no epistaxis, no sore throat Respiratory-no cough, no wheezing, no shortness of breath Cardiac-no palpitations, no chest pain, no syncope GI-no nausea, vomiting, melena, hematochezia. She does have diarrhea -no urinary retention, no urinary incontinence, no dysuria, no hematuria Musculoskeletal-no joint pain, no muscle tenderness Skin-no bruising, no rashes, no pruritus Neuro-no isolated weakness, no paresthesia, no weakness Psych-no depression, no anxiety Physical Exam Physical Exam: General-alert and oriented x3, no fevers, no chills HEENT-head atraumatic and normocephalic, pupils equal and reactive to light, extraocular muscles intact Neck-no lymphadenopathy or thyromegaly, trachea midline Chest-clear to auscultation percussion. No rales wheezing or rhonchi Cardiac-regular rate and rhythm, normal S1 and S2 Abdomen-normal bowel sounds, no hepatosplenomegaly. Diffuse mild tenderness Extremities-no cyanosis, clubbing, or edema Neuro-cranial nerves II through XII intact, motor and sensory function within normal limits, strength symmetrical 5/5, no focal deficits Psych-normal affect, normal mood Results & Data Results & Data Vital Signs (Past 12 Hours) Vital Signs Temp Pulse Pulse Resp BP BP Pulse Ox 06/18/23 11:41 36.9 C 126 H 19 118/88 94 06/18/23 07:00 110 H 16 128/92 94 06/18/23 07:48 06/18/23 07:33 110 H 06/18/23 06:30 109 H 5 L 96 06/18/23 06:30 126/100 06/18/23 06:20 108 H 5 L 97 06/18/23 06:10 108 H 11 L 96 06/18/23 06:00 109 H 9 L 84 L 06/18/23 06:00 131/106 H 06/18/23 05:50 107 H 12 95 06/18/23 05:40 110 H 0 L 95 06/18/23 05:30 108 H 0 L 96 06/18/23 05:30 146/96 H 06/18/23 05:20 109 H 4 L 96 06/18/23 05:10 107 H 10 L 95 06/18/23 05:10 124/95 06/18/23 05:00 106 H 16 94 06/18/23 04:50 106 H 4 L 96 06/18/23 04:40 106 H 15 96 06/18/23 04:30 104 H 11 L 96 06/18/23 04:20 107 H 15 96 06/18/23 04:10 105 H 9 L 94 06/18/23 04:00 105 H 11 L 94 06/18/23 04:00 141/94 H 06/18/23 03:50 104 H 0 L 94 06/18/23 03:40 104 H 20 95 06/18/23 03:30 103 H 12 96 06/18/23 03:30 132/92 06/18/23 03:20 106 H 25 H 96 06/18/23 03:10 100 H 19 93 06/18/23 03:00 99 H 10 L 95 06/18/23 03:00 120/93 06/18/23 02:50 99 H 23 95 06/18/23 02:40 98 H 18 95 06/18/23 02:30 97 H 19 95 06/18/23 02:30 132/84 06/18/23 02:20 97 H 21 95 06/18/23 02:10 99 H 4 L 95 06/18/23 02:00 98 H 17 96 06/18/23 02:00 125/83 06/18/23 01:50 97 H 17 95 06/18/23 01:40 99 H 20 94 Pulse Ox O2 Del Method O2 Del Method 06/18/23 11:41 Room Air 06/18/23 07:00 Room Air 06/18/23 07:48 94 Room Air 06/18/23 07:33 06/18/23 06:30 06/18/23 06:30 06/18/23 06:20 06/18/23 06:10 06/18/23 06:00 06/18/23 06:00 06/18/23 05:50 06/18/23 05:40 06/18/23 05:30 06/18/23 05:30 06/18/23 05:20 06/18/23 05:10 06/18/23 05:10 06/18/23 05:00 06/18/23 04:50 06/18/23 04:40 06/18/23 04:30 06/18/23 04:20 06/18/23 04:10 06/18/23 04:00 06/18/23 04:00 06/18/23 03:50 06/18/23 03:40 06/18/23 03:30 06/18/23 03:30 06/18/23 03:20 06/18/23 03:10 06/18/23 03:00 06/18/23 03:00 06/18/23 02:50 06/18/23 02:40 06/18/23 02:30 06/18/23 02:30 06/18/23 02:20 06/18/23 02:10 06/18/23 02:00 06/18/23 02:00 06/18/23 01:50 06/18/23 01:40 Laboratory Results 06/18/23 04:14 06/18/23 04:14 PG Care Time/CCT Total # of Minutes Spent Total Time Spent with Patient: Total time spent is greater than 50% in coordination of care (as documented) at patient's floor/unit and/or counseling patient: Coding Level of Care Code 56989 SUB INP/OBS CARE 3/50MIN Diagnoses Severe sepsis A41.9; R65.20 Colitis K52.9 Renal failure N19 Thrombocytopenia D69.6 Elevated INR R79.1 Hypocalcemia E83.51 Elevated bilirubin R17 Hypomagnesemia E83.42 Hypoglycemia E16.2 HFrEF (heart failure with reduced ejection fraction) I50.20 Hypothyroidism E03.9 Hypertension I10 GERD (gastroesophageal reflux disease) K21.9
[2023-06-18 15:03] LABS: Thyroid Stimulating Hormone 0.128 uIu/ml (0.300-4.500)
--- NOTE | 2023-06-18 16:53 | Oncology Consultation ---
Date of Consultation June 18, 2023 Assessment & Plan (1) Sepsis: (2) Renal failure: (3) Thrombocytopenia: (4) Colitis: (5) Elevated INR: Plan -Based on review of her labs and peripheral smear review, no evidence at this time to suggest DIC. PT/PTT seems to have improved since admission. Recommend obtaining PT/PTT mixing study to assess for inhibitor or factor deficiency. -Mild thrombocytopenia likely due to underlying infection. Recommend checking B12/folate to rule out nutritional causes as well. Thank you for this consult. Hematology will follow peripherally while she is in the hospital. Please feel free to call if you have any further questions History of Present Illness Reason for Consultation: Abnormal coagulation panel in the setting of severe sepsis Attending Physician: Alli Valdivia MD History of Present Illness 73-year-old female with multiple medical comorbidities who presented to the ER at [facility] yesterday with complaints of fatigue, poor oral intake, abdominal pain. While in the ED, she was found to be hypotensive and tachycardic. Labs significant for neutrophilic leukocytosis with WBC of 18.27, mild anemia with hemoglobin of 11.0 and hematocrit of 31.8, mild thrombocytopenia with a count of 119,000, LDH of 344. Also noted to have RHIANNON with creatinine of 1.85, elevated PTH of 361. Procalcitonin was also elevated at 32.17. Coagulation panel revealed slightly prolonged PT of 16.3, PTT of 40.3. Fibrinogen was elevated at 433 with D-dimer also elevated at 3800. Chest x-ray was unremarkable. CT abdomen and pelvis without contrast revealed findings suggestive of nonspecific colitis, small amount of ascites, trace bilateral pleural effusion and possible cirrhosis. Stool studies was C. difficile PCR positive but negative for toxin. Peripheral smear review by pathology was essentially unremarkable with increased leukocytes, mainly neutrophilic, rare left shifted granulocytes and no morphologic features of DIC. During my evaluation of patient today, she appeared lethargic and very sleepy. She endorsed abdominal discomfort, fatigue, nausea. Denied weight loss, fever or chills Allergies Allergy/AdvReac Type Severity Reaction Status Date / Time bacitracin Allergy Intermediate Hives, Verified 03/24/23 10:51 blisters clavulanic acid Allergy Intermediate Hives Verified 03/24/23 10:51 diphenhydramine Allergy Intermediate Hives Verified 03/24/23 10:51 iodine Allergy Intermediate Hives Verified 03/24/23 10:51 ketorolac Allergy Intermediate Hives Verified 03/24/23 10:51 meclofenamic acid Allergy Intermediate Hives Verified 03/24/23 10:51 neomycin Allergy Intermediate Hives, Verified 03/24/23 10:51 blisters NSAIDS (Non-Steroidal Allergy Intermediate Hives Verified 03/24/23 10:51 Anti-Inflamma (tolerates Celebrex) oxycodone Allergy Intermediate Hives Verified 03/24/23 10:51 (tolerates Vicodin) polymyxin B Allergy Intermediate Hives, Verified 03/24/23 10:51 blisters quinine Allergy Intermediate Hives Verified 03/24/23 10:51 Sulfa (Sulfonamide Allergy Intermediate Hives Verified 03/24/23 10:51 Antibiotics) tramadol Allergy Intermediate Hives, Verified 03/24/23 10:51 itching adhesive Allergy Mild Rash Verified 03/24/23 10:51 doxycycline Allergy Mild Anaphylaxis Verified 03/24/23 10:51 hydroxychloroquine Allergy Mild Rash Verified 03/24/23 10:51 latex Allergy Mild Rash Verified 03/24/23 10:51 methotrexate Allergy Mild Rash Verified 03/24/23 10:51 povidone-iodine Allergy Mild Rash Verified 03/24/23 10:51 meperidine AdvReac Intermediate N/V Verified 03/24/23 10:51 prednisone AdvReac Intermediate Made Verified 03/24/23 10:51 "bones soft" aspirin AdvReac Mild N/V Verified 03/24/23 10:51 Home Medications Medication Instructions Recorded Confirmed Type docusate sodium 100 mg capsule 100 mg PO BID PRN Constipation 02/26/19 06/17/23 History zoledronic acid 5 mg/100 mL in 5 mg/kg IV YEARLY 03/02/19 06/17/23 History mannitol 5 %-water intravenous piggybck nitroglycerin 0.4 mg sublingual 0.4 mg sublingual Q5M PRN chest 02/22/21 06/17/23 Rx tablet (Nitrostat) pain #25 tabs calcium carbonate 600 mg-vitamin 1 tab PO QAM 08/24/21 06/17/23 History D3 5 mcg (200 unit) tablet ondansetron 4 mg disintegrating 4 mg translingual Q12 PRN Nausea 08/24/21 06/17/23 History tablet acetaminophen 650 mg 650 mg PO Q8H PRN Pain 12/04/21 06/17/23 History tablet,extended release (Tylenol Arthritis Pain) folic acid 1 mg tablet 1 mg PO QAM 05/24/22 06/17/23 History silver sulfadiazine 1 % topical 1 applic topical DAILY #20 grams 11/01/22 06/17/23 Rx cream magnesium oxide 400 mg (241.3 mg 400 mg PO BID #180 tabs 12/05/22 06/17/23 Rx magnesium) tablet atorvastatin 40 mg tablet 40 mg PO QAM #90 tabs 02/25/23 06/17/23 Rx levothyroxine 75 mcg tablet 75 mcg PO QAM #90 tabs 02/25/23 06/17/23 Rx nortriptyline 10 mg capsule 10 mg PO QAM #90 caps 02/25/23 06/17/23 Rx escitalopram oxalate 20 mg tablet 20 mg PO QAM #90 tabs 02/26/23 06/17/23 Rx (Lexapro) nortriptyline 25 mg capsule 25 mg PO HS #90 caps 02/27/23 06/17/23 Rx metoprolol succinate 50 mg 50 mg PO DAILY #180 tabs 03/18/23 06/17/23 Rx tablet,extended release 24 hr valacyclovir 1 gram tablet 2,000 mg PO DAILY PRN Cold Sores 03/24/23 06/17/23 Rx #12 tabs montelukast 10 mg tablet 10 mg PO QAM #90 tabs 04/24/23 06/17/23 Rx (Singulair) potassium chloride 10 mEq 10 meq PO QAM #90 tabs 04/24/23 06/17/23 Rx tablet,extended release aspirin 81 mg tablet,delayed 81 mg PO QAM #90 tabs 05/20/23 06/17/23 Rx release celecoxib 200 mg capsule (Celebrex) 200 mg PO BID #180 caps 05/20/23 06/17/23 Rx lansoprazole 15 mg capsule,delayed 15 mg PO QAM #90 caps 05/20/23 06/17/23 Rx release (Prevacid 24Hr) albuterol sulfate 90 mcg/actuation 1 - 2 puff inhalation .Q 4-6 HRS 06/17/23 06/17/23 History aerosol inhaler (Ventolin HFA) PRN shortness of breath or wheezing Patient History Medical History Allergic rhinitis Anemia Anxiety and depression Asthma Cholangitis Cholecystitis with perforation of gallbladder Coronary artery disease Cardiac catheterization -02/22/2021:Impression: 1. Severe CAD involving ostial/proximal LAD (100%), filling via left to left and right to left collaterals. 2. Otherwise nonobstructive CAD involving the mid circumflex. 3. No aortic stenosis. 4. Normal left-sided filling pressure. COVID-19 Encounter for pre-operative examination GERD (gastroesophageal reflux disease) History of COVID-19 DX 05/2021 (NO SYMPTOMS>PT STATES WAS A FALSE POSITIVE) History of right breast cancer s/p lumpectomy (1969)- no chemo or xrt Hx of fracture Right shoulder AC joint fracture (10/2020) due to traumatic event > healing without surgical intervention Hyperlipidemia Hypertension Hypotension Hypothyroidism Hypoxia IBS (irritable bowel syndrome) Insomnia Ischemic cardiomyopathy Liver abscess Lumbar facet joint syndrome Lumbar spinal stenosis Rheumatoid arthritis Sacroiliitis Steroid-induced osteoporosis V-tach Volume overload Surgical History H/O arthroscopy of shoulder L shoulder H/O cataract extraction R/L eye History of arthroscopy of left knee History of biopsy History of breast biopsy History of cardiac cath NO - IN [facility] History of ERCP WITH STENT (NOT PRESENT) History of foot surgery R/L History of lumpectomy of right breast History of right knee joint replacement History of tonsillectomy History of total abdominal hysterectomy and bilateral salpingo-oophorectomy d/t endometriosis Nausea and vomiting after administration of anesthetic agent S/P ORIF (open reduction internal fixation) fracture Left ankle S/p reverse total shoulder arthroplasty Left reverse TSA (02/26/19): Grade view 2, MAC#3, ETT 7 + PNB at [facility] (scope patch used) Family History Grandmother (Paternal) Family history of diabetes mellitus Grandmother (Maternal) Family history of diabetes mellitus Father Coronary heart disease Alzheimer disease Myocardial infarction Osteoarthritis COPD (chronic obstructive pulmonary disease) Lung disease Mother Myocardial infarction COPD (chronic obstructive pulmonary disease) Other No family history of adverse response to anesthesia Denies family history of Ovarian cancer Prostate cancer Breast cancer Colorectal cancer Social History Smoking Status: Never smoker Second Hand Exposure: Yes; Do You Dip or Chew Tobacco: No; Hx Alcohol Use: No Hx Substance Use: No Preferred Language: [place] Communication Ability: Effective Visual Impairment: No Limitations Hearing Ability: Normal Pricing Strategist Required: No Beliefs That Will Affect Care: None marital status: Current Living Situation: Spouse and Family Current Living Situation Comment: Home with family current occupational status: retired How many Children do You have: 2 Feels Safe at Home: Yes Childhood Exposure to Second-Hand Smoke: Yes Diet: regular Diet Comment: regular caffeine: Yes (coffee) during the past year weight has: remained stable Dental Care, Regularly: No Physical Activity Frequency: Daily Physical Activity Frequency Comment: walking indoors Seatbelt Use: always Sunscreen Use: No Assistive Devices: Raised Toilet Seat, Scooter/Electric Scooter and Wheelchair Results & Data Vital Signs (Past 12 Hours) Vital Signs Temp Pulse Pulse Resp BP BP Pulse Ox 06/18/23 16:27 36.4 C L 127 H 19 108/73 93 06/18/23 11:41 36.9 C 126 H 19 118/88 94 06/18/23 07:00 110 H 16 128/92 94 06/18/23 07:48 06/18/23 07:33 110 H 06/18/23 06:30 109 H 5 L 96 06/18/23 06:30 126/100 06/18/23 06:20 108 H 5 L 97 06/18/23 06:10 108 H 11 L 96 06/18/23 06:00 109 H 9 L 84 L 06/18/23 06:00 131/106 H 06/18/23 05:50 107 H 12 95 06/18/23 05:40 110 H 0 L 95 06/18/23 05:30 108 H 0 L 96 06/18/23 05:30 146/96 H 06/18/23 05:20 109 H 4 L 96 06/18/23 05:10 107 H 10 L 95 06/18/23 05:10 124/95 06/18/23 05:00 106 H 16 94 Pulse Ox O2 Del Method O2 Del Method 06/18/23 16:27 Room Air 06/18/23 11:41 Room Air 06/18/23 07:00 Room Air 06/18/23 07:48 94 Room Air 06/18/23 07:33 06/18/23 06:30 06/18/23 06:30 06/18/23 06:20 06/18/23 06:10 06/18/23 06:00 06/18/23 06:00 06/18/23 05:50 06/18/23 05:40 06/18/23 05:30 06/18/23 05:30 06/18/23 05:20 06/18/23 05:10 06/18/23 05:10 06/18/23 05:00 (1) Sepsis Acute renal failure type: unspecified Sepsis acute organ dysfunction status: with acute organ dysfunction Sepsis type: sepsis due to unspecified organism Severe sepsis acute organ dysfunction type: acute renal failure Severe sepsis shock status: without septic shock Qualified Code(s): A41.9 - Sepsis, unspecified organism; R65.20 - Severe sepsis without septic shock; N17.9 - Acute kidney failure, unspecified
[2023-06-18] MEDS: VANCOMYCIN HCL 250 MG/5 ML SOLN PO SCH (17:20)
[2023-06-18] MEDS: CHERRY SYRUP 5 ML UDP PO SCH (17:20)
[2023-06-18 18:15] LABS: INR 1.5 (0.9-1.1); Partial Thromboplastin Ratio 1.2; Partial Thromboplastin Time 32.6 Seconds (21.0-31.0); Prothrombin Time 15.9 Seconds (9.0-12.0)
[2023-06-18] MEDS ORDERED: ALBUMIN 25% 25 GM/100 ML VIAL IV ONE (23:39)
[2023-06-19] MEDS: CHERRY SYRUP 5 ML UDP PO SCH ×3 (00:15→13:28)
[2023-06-19] MEDS: VANCOMYCIN HCL 250 MG/5 ML SOLN PO SCH ×3 (00:16→19:35)
[2023-06-19] MEDS: CALCIUM GLUCONATE 10% 1,000 MG in SODIUM CHLOR 0.9% MINI-B 50 ML IV SCH ×2 (00:25→00:40)
[2023-06-19 00:41] LABS: BUN Creatinine Ratio 16.7 (10-20); Creatinine Clr Calc Pharmacy 21.6 ml/min; Est GFR (African American) 28.7 ml/min; Est GFR (Non-African American) 24.8 ml/min; Potassium 4.2 mmol/L (3.5-5.1)
[2023-06-19 00:43] LABS: Basophils # (auto) 0.04 K/uL (0.00-0.20); Basophils % (auto) 0.2 %; Hematocrit (blood only) 25.9 % (37.0-47.0); Immature Granulocytes # (auto) 0.13 K/uL (0.01-0.20); Immature Granulocytes % (auto) 0.5 %; Lymphocytes # (auto) 2.25 K/uL (1.20-3.40); Lymphocytes % (auto) 9.5 %; Mean Corpuscular Hemoglobin 34.9 pg (25.0-34.0); Mean Corpuscular Hgb Conc 34.7 g/dL (32.0-36.0); Mean Corpuscular Volume 100.4 fL (80.0-100.0); Mean Platelet Volume 11.1 fL (9.4-12.4); Monocytes # (auto) 1.17 K/uL (0.11-0.59); Monocytes % (auto) 4.9 %; Neutrophils # (auto) 20.18 K/uL (1.40-6.50); Neutrophils % (auto) 84.9 %; Nucleated RBC # (auto) 0.03 K/uL (0.00-0.12); Nucleated RBC % (auto) 0.1 %; Platelet Count 106 K/uL (130-400); RDW Coefficient of Variation 16.1 % (11.5-14.5); Red Blood Count 2.58 M/uL (4.20-5.40); White Blood Count 23.77 K/ul (4.8-10.8)
[2023-06-19] MEDS ORDERED: SODIUM CHLORIDE 0.9% 1,000 ML IV ONE (01:06)
[2023-06-19] MEDS ORDERED: CEFEPIME 1,000 MG in SYRINGE 0 ML IV SCH (02:00)
--- NOTE | 2023-06-19 04:12 | Communication Note ---
Date of Service: June 19, 2023 Received notification patient having decreased responsiveness would open eyes to name and occasionally say name, minimal urine output, normal vitals on room air. CBC PT/INR BMP was ordered, noted elevated WBC 23.77 small decrease hbg 10.3 to 9, creat elevation 1.7 to 1.98. Suspicion patient's ongoing sepsis may not be adequately treated on PO vancomycin may not be a colitis source especially with history of liver abscess, restarted cefepime ordered 1L NSS bolus. Ordered CT A/P with oral and IV contrast in morning for re-evaluation. 3:54 Code stroke was called for patient's altered mental status. Per nursing patient has continued to have decreased responsiveness, at this time has minimal responsiveness to pain retracts legs from pain, minimal pupillary response to light, stares into corner and blinks, unresponsive to name. Continues to have minimal urine output, no BM overnight. On exam patient has rales in b/l lungs, noted puffed cheeks b/l while nose breathing. EKG noted junctional rhythm HR 118. Ordered CT head chest abd no contrast to evaluate for possible sepsis source. Ordered CBC CMP PT/INR PTT lactate trop ammonia fibrinogen vbg. Patient was started on 2L O2 NC. DDx worsening sepsis, DIC, silent seizure, hepatic encephalopathy. Decreased suspicion of stroke, did not contact neurology Of note patient has not received sedative medications overnight, home psychiatric medications nortriptyline lexapro were held in day shift. She has received 6L IVF total since admission in the setting of heart failure EF 50%, normal pulse ox on room air. No falls noted in hospital. Blood culture negative at 24hr. Urine culture from admit pending. CT head chest abd per my read increased size of small b/l pleural effusions with ascites. No significant hemorrhage or stroke on head CT. [place] saw nothing acute. Prior CT A/P noted possible cirrhosis. WBC decreased to 18.63 hbg decrease to 8 platelet 86, pH 7.31 lactate 2, CMP largely unchanged. Ammonia elevated at 121 trop elevated at 44.2. Given possible cirrhosis, elevated ammonia, elevated PT/INR and alk phos, will treat for hepatic encephalopathy at this time. Ordered NG tube. Ordered lactulose 20gm QID, flagyl IV, vancomycin IV, albumin. Will not give additional fluids at this time given increase in pleural effusion. Consider discontinuing PO vanc given C diff toxin negative.
[2023-06-19 04:19] LABS: Base Excess VBG -8.6 mEq/L; HCO3 VBG 17 mmol/L; Oxygen Saturation VBG 60.2 %; PCO2 VBG 33 mmHg (38-50); PO2 VBG 39 mmHg; pH VBG 7.31 (7.36-7.41)
[2023-06-19] MEDS: ONDANSETRON INJ 2 MG/ML 2 ML VIAL IV PRN (04:33)
[2023-06-19 04:41] LABS: Basophils # (auto) 0.03 K/uL (0.00-0.20); Basophils % (auto) 0.2 %; Eosinophils # (auto) 0.02 K/uL (0.00-0.50); Eosinophils % (auto) 0.1 %; Hematocrit (blood only) 23.5 % (37.0-47.0); Immature Granulocytes # (auto) 0.11 K/uL (0.01-0.20); Immature Granulocytes % (auto) 0.6 %; Lymphocytes % (auto) 11.8 %; Mean Corpuscular Hemoglobin 35.2 pg (25.0-34.0); Mean Corpuscular Volume 103.5 fL (80.0-100.0); Mean Platelet Volume 12.5 fL (9.4-12.4); Monocytes # (auto) 0.95 K/uL (0.11-0.59); Monocytes % (auto) 5.1 %; Neutrophils # (auto) 15.32 K/uL (1.40-6.50); Neutrophils % (auto) 82.2 %; Platelet Count 86 K/uL (130-400); RDW Coefficient of Variation 16.3 % (11.5-14.5); RDW Standard Deviation 60.7 fL (36.4-46.3); Red Blood Count 2.27 M/uL (4.20-5.40); White Blood Count 18.63 K/ul (4.8-10.8)
[2023-06-19 04:45] LABS: Albumin Level 2.4 gm/dl (3.4-5.0); BUN Creatinine Ratio 16.5 (10-20); Calcium 7.6 mg/dl (8.6-10.3); Creatinine Clr Calc Pharmacy 22.1 ml/min; Est GFR (African American) 29.5 ml/min; Est GFR (Non-African American) 25.4 ml/min; Globulin 2.4 gm/dl (2.5-4.0); Magnesium 2.1 mg/dl (1.7-2.4); Potassium 4.2 mmol/L (3.5-5.1); Total Protein 4.8 gm/dl (6.0-8.3)
[2023-06-19 04:51] LABS: Troponin I High Sensitivity 44.2 pg/ml (0-14)
--- NOTE | 2023-06-19 04:52 | CT Scan Report ---
Exam(s): CT HEAD Without Contrast EXAM: CT Head Without Intravenous Contrast CLINICAL HISTORY: Reason for exam: ams. TECHNIQUE: Axial computed tomography images of the head/brain without intravenous contrast. Automated exposure control was utilized for the study. A dose lowering technique was utilized adhering to the principles of ALARA. COMPARISON: Comparison made to prior head CT from October 24, 2021. FINDINGS: Study is limited secondary to motion artifact. Brain: Unremarkable. No hemorrhage. No significant white matter disease. No edema. There is a moderate sized right choroidal fissure cyst. Ventricles: Unremarkable. No ventriculomegaly. Bones/joints: Unremarkable. No acute fracture. Soft tissues: Bilateral lens replacements. Sinuses: Unremarkable as visualized. No acute sinusitis. Mastoid air cells: Unremarkable as visualized. No mastoid effusion. IMPRESSION: No evidence of acute intracranial pathology. Communications: Call Doctor Stroke Electronically signed by: Shweta Orozco MD 06/19/23 04:51 AM
[2023-06-19] MEDS ORDERED: VANCOMYCIN CONSULT ACTIVE PRN (05:06)
[2023-06-19] MEDS ORDERED: ALBUMIN 25% 25 GM/100 ML VIAL IV ONE (05:08)
[2023-06-19] MEDS ORDERED: LACTULOSE SYRUP 20 GM/30 ML UDC PO SCH (05:10)
[2023-06-19] MEDS ORDERED: VANCOMYCIN HCL 1,250 MG in SODIUM CHLORIDE 0.9% 250 ML IV ONE (05:30)
[2023-06-19] MEDS ORDERED: metroNIDAZOLE 500 MG/100 ML BAG IV SCH (06:00)
[2023-06-19 06:16] LABS: INR 1.5 (0.9-1.1); Partial Thromboplastin Ratio 1.4; Partial Thromboplastin Time 39.6 Seconds (21.0-31.0); Prothrombin Time 16.3 Seconds (9.0-12.0)
[2023-06-19] MEDS ORDERED: LEVOTHYROXINE SODIUM 100 MCG TABLET PO SCH (06:30)
--- NOTE | 2023-06-19 07:11 | CT Scan Report ---
CT chest diagnostic wo con, CT abd pelvis wo con CT DOSE: 4127.29 mGy.cm CLINICAL HISTORY: 73 years-old Female with ams. Acute chest and abdominal pain with sepsis TECHNIQUE: Multiaxial CT images of the chest, abdomen and pelvis were performed without contrast. A dose lowering technique was utilized adhering to the principles of ALARA. COMPARISON: CT chest 08/24/2021, CT abdomen and pelvis 06/17/2023. FINDINGS: CT CHEST: Artifact from bilateral shoulder arthroplasties limits the study. Mild cardiomegaly with extensive co ronary artery calcifications. Atherosclerosis of the aorta. Small pleural effusions with mild depende nt bibasilar consolidation. Intralobular septal thickening with intermixed groundglass densities. No suspicious pulmonary nodules or masses. Degenerative changes of the spine. Partially imaged left scap ular fractures with marginal sclerosis are likely subacute to chronic. Subacute to chronic appearing left-sided rib fractures. Progressive vertebral body height loss with kyphosis and fracture displacem ent involving the chronic T2 burst fracture with 3 mm retropulsion. Mild T8 superior endplate tho jose angel deformity without retropulsion is chronic. Chronic appearing T10 and T11 compression deformities . T12 burst fracture with retropulsion is unchanged. CT ABDOMEN/PELVIS: Limited exam without use of contrast and also secondary to respiratory motion artifact. No free air. The unenhanced spleen, atrophic pancreas and adrenal glands are unremarkable. The gallbladder appears contracted. Suspected cirrhotic liver. Probable cyst of the right hepatic lobe, 1.6 cm. Cortical thinning of the kidneys. Exophytic prominence of the interpolar left kidney without definiti ve lesion identified without use of IV contrast. There is no hydronephrosis. Decompressed bladder wit h Lord catheter in place. Atherosclerosis of the aorta. Subcentimeter retroperitoneal lymph nodes. Colonic diverticulosis. There is diffuse wall thickening again noted throughout the colon with adjace nt pericolonic stranding. Small volume of abdominal pelvic ascites. Noninflamed appendix. Generalized body wall edema. Lumbar levoscoliosis. Chronic thoracolumbar compression deformities with chronic L5 pars defects. IMPRESSION: 1. Findings are again compatible with a nonspecific pancolitis. 2. Cardiomegaly with mild pulmonary edema, small pleural effusions and bibasilar consolidation favori ng atelectasis. 3. Suspected cirrhotic liver with small volume of abdominal pelvic ascites. 4. Subacute to chronic appearing left scapular fractures are partially imaged. 5. Additional findings as above. ACT 112: Negative or not required by law. Electronically signed by: Greyson Merchant M.D. 06/19/2023 7:08 AM
[2023-06-19 07:54] LABS: Fibrinogen 248 mg/dl (184-400)
--- NOTE | 2023-06-19 08:12 | XRay Report ---
KUB HISTORY: NG tube placement. COMPARISON: Abdomen and pelvis CT 06/19/2023. FINDINGS: The nasogastric tube terminates in the distal stomach. Mild thumbprinting seen within the t ransverse colon suggestive of a nonspecific colitis seen on the prior CT examination. No evidence for bowel obstruction at this time. No renal calculi. No ureteral calculi. No pneumoperitoneum or pneum atosis. IMPRESSION: The nasogastric tube terminates in the distal stomach. ACT 112: Negative or not required by law. Electronically signed by: Azael Pinto M.D. 06/19/2023 8:11 AM
[2023-06-19] MEDS: CALCIUM CARBONATE 1250MG TAB PO SCH (08:52)
[2023-06-19] MEDS: ASPIRIN 81 MG ECTAB PO SCH (08:52)
[2023-06-19] MEDS: MAGNESIUM OXIDE 400 MG TAB PO SCH (08:53)
[2023-06-19] MEDS: METOPROLOL SUCC 50MG EXT REL TAB PO SCH (08:53)
[2023-06-19] MEDS: D5W AND NSS 1,000 ML IV SCH ×3 (08:57→21:43)
--- NOTE | 2023-06-19 12:20 | Hospitalist Progress Note ---
Date of Service June 19, 2023 Assessment & Plan (1) Hepatic encephalopathy: Plan: NPO. IV fluids. Supportive care. Serial ammonia levels. Lactulose per NG (2) Severe sepsis: Plan: Present on admission. Continue IV fluids. Treat C. difficile enteritis. Blood cultures negative to date (3) Colitis: Plan: C. difficile isolated causing enteritis. Vancomycin suspension will continue per NG tube. Day 2. Continue IV fluids (4) Renal failure: Plan: Acute kidney injury probably from volume depletion. Continue IV fluids. Monitor intake and output. Serial lab (5) Thrombocytopenia: Plan: Mild. Appears to be due to active infection. Serial labs (6) Elevated INR: Plan: Mild. We will follow (7) Hypocalcemia: Plan: Parenteral replacement ordered. Serial labs. Continue oral replacement therapy when able (8) Hypomagnesemia: Plan: Parenteral replacement. Serial labs l (9) Hypoglycemia: Plan: Continue IV fluids with dextrose. Accu-Cheks before meals and at bedtime. (10) HFrEF (heart failure with reduced ejection fraction): Plan: Known ejection fraction of 40 to 45%. No evidence of overt CHF at this time. Monitor intake and output. (11) Hypothyroidism: Plan: Free T3 and free T4 levels are low. IV replacement therapy for now. Eventual switch back to oral replacement at a higher dosage than she usually takes at home (12) Hypertension: Plan: Stable. IV metoprolol for now (13) GERD (gastroesophageal reflux disease): Plan: Stable. Continue PPI therapy Plan To be determined Admission and Anticipated Discharge Date Admission Date: June 17, 2023 Subjective Minimally responsive due to hepatic encephalopathy. Stroke alert was called last evening. Head CT scan is unremarkable. She is now NPO. NG tube is in position for delivery of vancomycin suspension. She remains on IV fluids. Serial ammonia levels ordered. She is on lactulose. White count has decreased to 18,000. Calcium improved to 7.6. Will administer thyroid medication and metoprolol intravenously for now. Review of Systems Review of Systems: The patient cannot answer any questions regarding review systems at this time Physical Exam Physical Exam: General-somnolent HEENT-head atraumatic and normocephalic, pupils equal and reactive to light. Nasogastric tube in place Neck-no lymphadenopathy or thyromegaly, trachea midline Chest-clear to auscultation anteriorly. No audible wheezing or rhonchi i Cardiac-regular rate and rhythm, normal S1 and S2 Abdomen-normal bowel sounds, no hepatosplenomegaly. Bowel sounds are active. No distention Extremities-no edema Neuro-unresponsive. Cannot assess Psych-unresponsive. Cannot assess Results & Data Results & Data Vital Signs (Past 12 Hours) Vital Signs Temp Pulse Resp BP BP Pulse Ox O2 Del Method 06/19/23 08:05 36.7 C 100 H 18 117/67 96 Nasal Cannula 06/19/23 04:00 36.8 C 118 H 20 121/84 98 Nasal Cannula 06/19/23 04:38 121 H 18 133/85 95 Nasal Cannula 06/19/23 03:44 118 H 20 121/74 95 Room Air 06/19/23 02:21 36.7 C 101 H 18 115/75 93 Room Air O2 Flow Rate 06/19/23 08:05 2 06/19/23 04:00 2 06/19/23 04:38 2 06/19/23 03:44 06/19/23 02:21 Laboratory Results 06/19/23 04:08 06/19/23 04:08 PG Care Time/CCT Total # of Minutes Spent Total Time Spent with Patient: Total time spent is greater than 50% in coordination of care (as documented) at patient's floor/unit and/or counseling patient: Coding Level of Care Code 28181 SUB INP/OBS CARE 3/50MIN Diagnoses Hepatic encephalopathy K76.82 Severe sepsis A41.9; R65.20 Colitis K52.9 Renal failure N19 Thrombocytopenia D69.6 Elevated INR R79.1 Hypocalcemia E83.51 Hypomagnesemia E83.42 Hypoglycemia E16.2 HFrEF (heart failure with reduced ejection fraction) I50.20 Hypothyroidism E03.9 Hypertension I10 GERD (gastroesophageal reflux disease) K21.9
[2023-06-19] MEDS: CARBOHYDRATES FOR HYPOGLYCEMIA PO PRN (12:30)
[2023-06-19] MEDS: DEXTROSE 50% 50 ML SYRINGE IV PRN ×2 (12:51→18:07)
--- NOTE | 2023-06-19 12:59 | Electrocardiogram Report ---
Test Reason : Blood Pressure : / mmHG Vent. Rate : 114 BPM Atrial Rate : 108 BPM P-R Int : 000 ms QRS Dur : 118 ms QT Int : 344 ms P-R-T Axes : 000 -18 104 degrees QTc Int : 474 ms Poor data quality, interpretation may be adversely affected Probable Sinus tachycardia Old Anteroseptal infarct (cited on or before 24-AUG-2021) Abnormal ECG When compared with ECG of 17-JUN-2023 13:37, Artifact now present Otherwise no significant change Confirmed by Chris Rodriguez ([id number] on 06/19/2023 12:59:20 PM Referred By: REFERRED SELF Confirmed By:Chris Rodriguez
[2023-06-19] MEDS: METOPROLOL TARTRATE 1 MG/ML VIAL IV SCH ×3 (13:28→23:42)
[2023-06-19] MEDS: LACTULOSE SYRUP 20 GM/30 ML UDC NG SCH ×3 (13:37→21:45)
[2023-06-19] MEDS: VANCOMYCIN HCL 250 MG/5 ML SOLN NG SCH ×2 (18:28→23:46)
[2023-06-20] MEDS: D5W AND NSS 1,000 ML IV SCH ×3 (05:30→23:44)
[2023-06-20] MEDS: VANCOMYCIN HCL 250 MG/5 ML SOLN NG SCH ×4 (05:33→23:47)
[2023-06-20] MEDS: METOPROLOL TARTRATE 1 MG/ML VIAL IV SCH ×4 (05:34→23:48)
[2023-06-20 07:19] LABS: Basophils # (auto) 0.02 K/uL (0.00-0.20); Basophils % (auto) 0.1 %; Eosinophils # (auto) 0.05 K/uL (0.00-0.50); Eosinophils % (auto) 0.3 %; Hematocrit (blood only) 23.7 % (37.0-47.0); Hemoglobin 7.8 g/dl (12.0-16.0); Immature Granulocytes # (auto) 0.09 K/uL (0.01-0.20); Immature Granulocytes % (auto) 0.5 %; Lymphocytes # (auto) 1.94 K/uL (1.20-3.40); Lymphocytes % (auto) 11.2 %; Mean Corpuscular Hgb Conc 32.9 g/dL (32.0-36.0); Mean Corpuscular Volume 106.3 fL (80.0-100.0); Mean Platelet Volume 12.2 fL (9.4-12.4); Monocytes # (auto) 0.93 K/uL (0.11-0.59); Monocytes % (auto) 5.3 %; Neutrophils # (auto) 14.36 K/uL (1.40-6.50); Neutrophils % (auto) 82.6 %; Platelet Count 86 K/uL (130-400); RDW Coefficient of Variation 16.6 % (11.5-14.5); RDW Standard Deviation 63.9 fL (36.4-46.3); Red Blood Count 2.23 M/uL (4.20-5.40); White Blood Count 17.39 K/ul (4.8-10.8)
[2023-06-20 07:45] LABS: Macrocytosis Present; Ovalocytes 2+; Polychromasia 1+; Tear Drop Cells 1+
[2023-06-20 07:47] LABS: INR 1.6 (0.9-1.1); Prothrombin Time 17.5 Seconds (9.0-12.0)
[2023-06-20] MEDS ORDERED: LEVOTHYROXINE SODIUM 75 MCG in SYRINGE 0 ML IV SCH (09:00)
[2023-06-20 09:01] LABS: Albumin Globulin Ratio 1.1 (0.9-2); Albumin Level 2.1 gm/dl (3.4-5.0); Calcium 7.2 mg/dl (8.6-10.3); Creatinine Clr Calc Pharmacy 25.7 ml/min; Est GFR (African American) 35.3 ml/min; Est GFR (Non-African American) 30.5 ml/min; Magnesium 1.9 mg/dl (1.7-2.4); Potassium 3.5 mmol/L (3.5-5.1); Total Protein 4.1 gm/dl (6.0-8.3)
[2023-06-20] MEDS: LACTULOSE SYRUP 20 GM/30 ML UDC NG SCH ×4 (09:30→23:44)
[2023-06-20 16:47] LABS: Babesia microti DNA Not Detected (Not Detected)
--- NOTE | 2023-06-20 23:27 | Hospitalist Progress Note ---
Date of Service June 20, 2023 Assessment & Plan (1) Hepatic encephalopathy: Plan: Now on a diet.. IV fluids. Supportive care. Serial ammonia levels: has normalized. Lactulose will be continued. Patient with diarrhea. In regards to etiology of liver failure, it does appear patient has had an elevated alk phos and INR since 2020. Perhaps PEDERSEN. Will order hepatitis panel. Imaging suggesting cirrhosis, however, patient will likely need a biopsy to confirm. (2) Severe sepsis: Plan: Present on admission. Continue IV fluids. Treat C. difficile enteritis. Blood cultures negative to date (3) Colitis: Plan: C. difficile isolated causing enteritis. Vancomycin suspension will continue Continue IV fluids will monitor inflammatory markers (4) Renal failure: Plan: Acute kidney injury probably from volume depletion. Continue IV fluids. Monitor intake and output. Serial lab (5) Thrombocytopenia: Plan: Mild. Appears to be due to active infection. Serial labs (6) Elevated INR: Plan: Mild. We will follow (7) Hypocalcemia: Plan: Parenteral replacement ordered. Serial labs. Continue oral replacement therapy when able (8) Hypomagnesemia: Plan: Parenteral replacement. Serial labs l (9) Hypoglycemia: Plan: Continue IV fluids with dextrose. Accu-Cheks before meals and at bedtime. (10) HFrEF (heart failure with reduced ejection fraction): Plan: Known ejection fraction of 40 to 45%. No evidence of overt CHF at this time. Monitor intake and output. (11) Hypothyroidism: Plan: Free T3 and free T4 levels are low. IV replacement therapy for now. Eventual switch back to oral replacement at a higher dosage than she usually takes at home (12) Hypertension: Plan: Stable. IV metoprolol for now (13) GERD (gastroesophageal reflux disease): Plan: Stable. Continue PPI therapy Plan To be determined Admission and Anticipated Discharge Date Admission Date: June 17, 2023 Subjective Patient is awake and conversant. Patient is not able to answer orientation questions. Review of Systems Review of Systems: All systems reviewed & are unremarkable except as noted in HPI & below Physical Exam Physical Exam: General-awake HEENT-head atraumatic and normocephalic, pupils equal and reactive to light. Neck-no lymphadenopathy or thyromegaly, trachea midline Chest-clear to auscultation anteriorly. No audible wheezing or rhonchi i Cardiac-regular rate and rhythm, normal S1 and S2 Abdomen-normal bowel sounds, no hepatosplenomegaly. Bowel sounds are active. No distention Extremities-no edema Neuro-not oriented Results & Data Results & Data Vital Signs (Past 12 Hours) Vital Signs Temp Pulse Pulse Resp BP BP Pulse Ox 06/20/23 19:00 36.4 C L 92 H 16 136/69 100 06/20/23 17:51 92 H 137/80 06/20/23 17:37 92 H 137/80 06/20/23 16:18 37.0 C 89 18 137/80 98 06/20/23 12:08 36.9 C 89 18 134/75 98 O2 Del Method O2 Flow Rate 06/20/23 19:00 Nasal Cannula 06/20/23 17:51 06/20/23 17:37 06/20/23 16:18 Nasal Cannula 2 06/20/23 12:08 Room Air PG Care Time/CCT Total # of Minutes Spent Total Time Spent with Patient: Total time spent is greater than 50% in coordination of care (as documented) at patient's floor/unit and/or counseling patient: Coding Level of Care Code 25374 SUB INP/OBS CARE 3/50MIN Diagnoses Hepatic encephalopathy K76.82 Severe sepsis A41.9; R65.20 Colitis K52.9 Renal failure N19 Thrombocytopenia D69.6 Elevated INR R79.1 Hypocalcemia E83.51 Hypomagnesemia E83.42 Hypoglycemia E16.2 HFrEF (heart failure with reduced ejection fraction) I50.20 Hypothyroidism E03.9 Hypertension I10 GERD (gastroesophageal reflux disease) K21.9
[2023-06-21] MEDS: ACETAMINOPHEN 325 MG TAB PO PRN (00:47)
[2023-06-21] MEDS: METOPROLOL TARTRATE 1 MG/ML VIAL IV SCH ×4 (05:26→23:32)
[2023-06-21] MEDS: D5W AND NSS 1,000 ML IV SCH (05:27)
[2023-06-21] MEDS: CHERRY SYRUP 5 ML UDP PO SCH ×4 (05:27→23:34)
[2023-06-21] MEDS: VANCOMYCIN HCL 250 MG/5 ML SOLN PO SCH ×4 (05:27→23:34)
[2023-06-21 07:29] LABS: Mean Corpuscular Hemoglobin 35.2 pg (25.0-34.0); Mean Corpuscular Hgb Conc 33.3 g/dL (32.0-36.0); Mean Corpuscular Volume 105.5 fL (80.0-100.0); Mean Platelet Volume 11.4 fL (9.4-12.4); Platelet Count 50 K/uL (130-400); RDW Coefficient of Variation 16.3 % (11.5-14.5); Red Blood Count 1.99 M/uL (4.20-5.40); White Blood Count 11.08 K/ul (4.8-10.8)
[2023-06-21] MEDS ORDERED: PHYTONADIONE 5 MG TAB PO STA (08:04)
[2023-06-21 08:11] LABS: INR 1.7 (0.9-1.1); Prothrombin Time 18.3 Seconds (9.0-12.0)
[2023-06-21 08:39] LABS: BUN Creatinine Ratio 22.8 (10-20); Creatinine Clr Calc Pharmacy 33.3 ml/min; Est GFR (African American) 45.3 ml/min; Est GFR (Non-African American) 39.1 ml/min; Potassium 2.5 mmol/L (3.5-5.1)
--- NOTE | 2023-06-21 08:55 | Progress Note ---
Date of Service June 21, 2023 Assessment & Plan (1) Severe sepsis: (2) Elevated INR: (3) Hepatic encephalopathy: Plan - PT and PTT mixing study suggestive of factor deficiency. Suspect that abnormal coagulation panel likely due to liver disease or severe vitamin K deficiency. Recommend vitamin K 5 mg p.o./IV x1 dose to see if this is a vitamin K deficiency. -Labs also show worsening thrombocytopenia and anemia possibly due to worsening infection. Would recommend rechecking fibrinogen level to rule out DIC. Also obtain anemia panel including iron studies, B12 and folate levels. Consider ID consult for worsening sepsis. Admission and Anticipated Discharge Date Admission Date: June 17, 2023 Subjective PT/PTT mixing studies suggestive of factor deficiency. Labs show worsening anemia and thrombocytopenia Results & Data Vital Signs (Past 12 Hours) Vital Signs Temp Pulse Pulse Resp BP Pulse Ox O2 Del Method 06/21/23 05:40 76 06/21/23 05:26 82 06/21/23 03:00 36.4 C L 89 19 152/87 H 99 Nasal Cannula 06/21/23 01:19 89 06/21/23 00:03 85 06/20/23 23:59 36.6 C 81 146/79 H 98 Nasal Cannula
[2023-06-21 08:59] LABS: Fibrinogen 244 mg/dl (184-400)
[2023-06-21] MEDS ORDERED: POTASSIUM CHLORIDE CRTAB 20 MEQ TABCR PO STA (09:16)
[2023-06-21 09:43] LABS: Folate (Folic Acid),Ser orPlas 18.14 ng/ml (>5.38)
[2023-06-21 09:45] LABS: Basophils # (auto) 0.01 K/uL (0.00-0.20); Basophils % (auto) 0.1 %; Eosinophils # (auto) 0.18 K/uL (0.00-0.50); Eosinophils % (auto) 1.6 %; Immature Granulocytes # (auto) 0.08 K/uL (0.01-0.20); Immature Granulocytes % (auto) 0.7 %; Lymphocytes # (auto) 1.81 K/uL (1.20-3.40); Lymphocytes % (auto) 16.4 %; Monocytes # (auto) 0.61 K/uL (0.11-0.59); Monocytes % (auto) 5.5 %; Neutrophils # (auto) 8.35 K/uL (1.40-6.50); Neutrophils % (auto) 75.7 %
[2023-06-21 09:50] LABS: Iron 65 mcg/dl (35-150)
[2023-06-21 09:55] LABS: Ferritin 1013.3 ng/ml (8-388)
[2023-06-21 10:13] LABS: Macrocytosis Present; Ovalocytes 1+; Polychromasia 1+
[2023-06-21 10:14] LABS: Unsaturated Iron Binding Cap < 55 mcg/dl (155-355)
[2023-06-21] MEDS: LACTULOSE SYRUP 20 GM/30 ML UDC PO SCH ×4 (10:47→22:14)
[2023-06-21] MEDS: POTASSIUM CHLORIDE / WTR 10 MEQ/100 ML PLCT IV SCH ×4 (10:47→17:32)
--- NOTE | 2023-06-21 11:48 | XRay Report ---
KUB CLINICAL HISTORY: c diff colitis COMPARISON STUDY: CT of the abdomen and pelvis and KUB June 19, 2023. FINDINGS: The bowel gas pattern is normal. There is no evidence for a bowel obstruction. Amount of st ool is within normal limits. A round lucency projects over the bladder. This likely reflects a Lord balloon. IMPRESSION: 1. No evidence for a bowel obstruction. 2. Round lucency which projects over the bladder. This may reflect a distended Lord balloon. ACT 112: Negative or not required by law. Electronically signed by: Rodney Gilbret M.D. 06/21/2023 11:47 AM
[2023-06-21] MEDS: POTASSIUM CHLORIDE CRTAB 20 MEQ TABCR PO SCH ×2 (14:23→23:32)
--- NOTE | 2023-06-21 22:02 | Hospitalist Progress Note ---
Date of Service June 21, 2023 Assessment & Plan (1) Hepatic encephalopathy: Plan: Now on a diet.. IV fluids. Supportive care. Serial ammonia levels: has normalized. Lactulose will be continued. Patient with diarrhea. In regards to etiology of liver failure, it does appear patient has had an elevated alk phos and INR since 2020. Perhaps PEDERSEN. Will order hepatitis panel. Imaging suggesting cirrhosis, however, patient will likely need a biopsy to confirm. Ammonia level appears controlled. will titrate down lactulose (2) Severe sepsis: Plan: Present on admission. Continue IV fluids. Treat C. difficile enteritis. Blood cultures negative to date (3) Colitis: Plan: C. difficile isolated causing enteritis. Vancomycin suspension will continue Continue IV fluids will monitor inflammatory markers: decreasing. (4) Renal failure: Plan: Acute kidney injury probably from volume depletion. Continue IV fluids. Monitor intake and output. Serial lab improving on 06/21 (5) Thrombocytopenia: Plan: Mild. Appears to be due to active infection. Serial labs (6) Elevated INR: Plan: Mild. We will follow (7) Hypocalcemia: Plan: Parenteral replacement ordered. Serial labs. Continue oral replacement therapy when able (8) Hypomagnesemia: Plan: Parenteral replacement. Serial labs l (9) Hypoglycemia: Plan: Continue IV fluids with dextrose. Accu-Cheks before meals and at bedtime. (10) HFrEF (heart failure with reduced ejection fraction): Plan: Known ejection fraction of 40 to 45%. No evidence of overt CHF at this time. Monitor intake and output. (11) Hypothyroidism: Plan: Free T3 and free T4 levels are low. IV replacement therapy for now. Eventual switch back to oral replacement at a higher dosage than she usually takes at home (12) Hypertension: Plan: Stable. IV metoprolol for now (13) GERD (gastroesophageal reflux disease): Plan: Stable. Continue PPI therapy Plan To be determined Admission and Anticipated Discharge Date Admission Date: June 17, 2023 Subjective Patient reports no new symptoms. Review of Systems Review of Systems: All systems reviewed & are unremarkable except as noted in HPI & below Physical Exam Physical Exam: General-awake HEENT-head atraumatic and normocephalic, pupils equal and reactive to light. Neck-no lymphadenopathy or thyromegaly, trachea midline Chest-clear to auscultation anteriorly. No audible wheezing or rhonchi i Cardiac-regular rate and rhythm, normal S1 and S2 Abdomen-normal bowel sounds, no hepatosplenomegaly. Bowel sounds are active. No distention Extremities-no edema Results & Data Results & Data Vital Signs (Past 12 Hours) Vital Signs Temp Pulse Pulse Resp BP BP Pulse Ox 06/21/23 19:00 36.9 C 85 14 143/74 H 96 06/21/23 18:19 86 06/21/23 17:32 82 161/70 H 06/21/23 16:00 36.7 C 82 18 161/70 H 92 06/21/23 15:32 36.9 C 87 18 136/78 96 06/21/23 13:00 91 H 160/61 H 06/21/23 10:44 36.9 C 91 H 20 160/61 H 96 O2 Del Method 06/21/23 19:00 Room Air 06/21/23 18:19 06/21/23 17:32 06/21/23 16:00 Room Air 06/21/23 15:32 Room Air 06/21/23 13:00 06/21/23 10:44 Room Air PG Care Time/CCT Total # of Minutes Spent Total Time Spent with Patient: Total time spent is greater than 50% in coordination of care (as documented) at patient's floor/unit and/or counseling patient: Coding Level of Care Code 34641 SUB INP/OBS CARE 2/35MIN Diagnoses Hepatic encephalopathy K76.82 Severe sepsis A41.9; R65.20 Colitis K52.9 Renal failure N19 Thrombocytopenia D69.6 Elevated INR R79.1 Hypocalcemia E83.51 Hypomagnesemia E83.42 Hypoglycemia E16.2 HFrEF (heart failure with reduced ejection fraction) I50.20 Hypothyroidism E03.9 Hypertension I10 GERD (gastroesophageal reflux disease) K21.9
[2023-06-22] MEDS: VANCOMYCIN HCL 250 MG/5 ML SOLN PO SCH ×3 (05:49→17:55)
[2023-06-22] MEDS: CHERRY SYRUP 5 ML UDP PO SCH ×3 (05:49→17:56)
[2023-06-22] MEDS: METOPROLOL TARTRATE 1 MG/ML VIAL IV SCH (05:50)
[2023-06-22 06:41] LABS: Hematocrit (blood only) 22.9 % (37.0-47.0); Hemoglobin 7.6 g/dl (12.0-16.0); Mean Corpuscular Hemoglobin 36.2 pg (25.0-34.0); Mean Corpuscular Hgb Conc 33.2 g/dL (32.0-36.0); Mean Platelet Volume 11.1 fL (9.4-12.4); Platelet Count 56 K/uL (130-400); RDW Standard Deviation 63.2 fL (36.4-46.3); White Blood Count 11.05 K/ul (4.8-10.8)
[2023-06-22 07:13] LABS: BUN Creatinine Ratio 28.6 (10-20); C Reactive Protein 3.28 mg/dl (0-0.5); Calcium 7.8 mg/dl (8.6-10.3); Est GFR (African American) 61.9 ml/min; Est GFR (Non-African American) 53.4 ml/min; Magnesium 1.5 mg/dl (1.7-2.4); Phosphorus 1.6 mg/dl (2.5-4.9); Potassium 3.8 mmol/L (3.5-5.1)
[2023-06-22] MEDS ORDERED: LACTULOSE SYRUP 20 GM/30 ML UDC PO SCH (09:00)
[2023-06-22] MEDS ORDERED: POTASSIUM PHOS 3 MMOL/1 ML INFUSION IV STA (09:08)
[2023-06-22] MEDS ORDERED: POTASSIUM PHOSPHATE IV ONE (09:15)
[2023-06-22] MEDS ORDERED: POTASSIUM PHOSPHATE 21 MMOL in SODIUM CHLORIDE 0.9% 250 ML IV ONE (09:15)
[2023-06-22] MEDS ORDERED: METOPROLOL SUCC 50MG EXT REL TAB PO SCH (09:15)
[2023-06-22] MEDS ORDERED: SODIUM CHLORIDE 0.9% IV ONE (09:15)
[2023-06-22] MEDS ORDERED: lisinopril 2.5 MG TAB PO ONE (09:30)
[2023-06-22] MEDS ORDERED: POTASSIUM PHOSPHATE 21 MMOL in SODIUM CHLORIDE 0.9% 500 ML IV ONE (09:30)
[2023-06-22 09:43] LABS: HBSAG NON-REACTIVE (NON-REACTIVE); Hepatitis A Antibody IgM NON-REACTIVE (NON-REACTIVE); Hepatitis B Core Antibody IgM NON-REACTIVE (NON-REACTIVE)
[2023-06-22] MEDS: carvediloL 6.25 MG TAB PO SCH ×2 (11:00→18:02)
[2023-06-22] MEDS: MAGNESIUM SULFATE / D5W 1 GM/100 ML BAG IV SCH ×2 (11:00→14:00)
--- NOTE | 2023-06-22 12:07 | Gastrointestinal Consultation ---
Date of Consultation June 22, 2023 Assessment & Plan (1) Abnormal CT of the abdomen: CT suggests lobulated contour to the liver but LFT's are normal except for minimally elevated alk phos. I don't know that we can make the assumption that she has cirrhosis based on the CT scan especially since the one last year does not mention the possibility of cirrhosis. Certainly the elevated ammonia with "encephalopathy" would suggest liver disease but that is not certain. Liver biopsy would help but have to decide what difference that would make. Certainly I would focus on fixing the acute issue before pursuing the workup of cirrhosis. This can even be done as an outpatient. [facility] will take over tomorrow and make their decisions about how to proceed. History of Present Illness Reason for Consultation: cirrhosis Attending Physician: Carlitos Martinez History of Present Illness 73 year old female admitted with sepsis. "slightly lobulated liver" seen on CT suggesting cirrhosis. I am asked to see her about this. She had a rough time last year dealing with liver abscess and choledocholithiasis and apparently spent a lot of time at [facility]. Other than that episode she knows nothing about her liver. She has never been told she had any liver issues with lab work in the past. No family history of liver disease. Does not drink alcohol. She is currently being treated for c. diff with vancomycin. Allergies Allergy/AdvReac Type Severity Reaction Status Date / Time bacitracin Allergy Intermediate Hives, Verified 03/24/23 10:51 blisters clavulanic acid Allergy Intermediate Hives Verified 03/24/23 10:51 diphenhydramine Allergy Intermediate Hives Verified 03/24/23 10:51 iodine Allergy Intermediate Hives Verified 03/24/23 10:51 ketorolac Allergy Intermediate Hives Verified 03/24/23 10:51 meclofenamic acid Allergy Intermediate Hives Verified 03/24/23 10:51 neomycin Allergy Intermediate Hives, Verified 03/24/23 10:51 blisters NSAIDS (Non-Steroidal Allergy Intermediate Hives Verified 03/24/23 10:51 Anti-Inflamma (tolerates Celebrex) oxycodone Allergy Intermediate Hives Verified 03/24/23 10:51 (tolerates Vicodin) polymyxin B Allergy Intermediate Hives, Verified 03/24/23 10:51 blisters quinine Allergy Intermediate Hives Verified 03/24/23 10:51 Sulfa (Sulfonamide Allergy Intermediate Hives Verified 03/24/23 10:51 Antibiotics) tramadol Allergy Intermediate Hives, Verified 03/24/23 10:51 itching adhesive Allergy Mild Rash Verified 03/24/23 10:51 doxycycline Allergy Mild Anaphylaxis Verified 03/24/23 10:51 hydroxychloroquine Allergy Mild Rash Verified 03/24/23 10:51 latex Allergy Mild Rash Verified 03/24/23 10:51 methotrexate Allergy Mild Rash Verified 03/24/23 10:51 povidone-iodine Allergy Mild Rash Verified 03/24/23 10:51 meperidine AdvReac Intermediate N/V Verified 03/24/23 10:51 prednisone AdvReac Intermediate Made Verified 03/24/23 10:51 "bones soft" aspirin AdvReac Mild N/V Verified 03/24/23 10:51 Home Medications Medication Instructions Recorded Confirmed Type docusate sodium 100 mg capsule 100 mg PO BID PRN Constipation 02/26/19 06/17/23 History zoledronic acid 5 mg/100 mL in 5 mg/kg IV YEARLY 03/02/19 06/17/23 History mannitol 5 %-water intravenous piggybck nitroglycerin 0.4 mg sublingual 0.4 mg sublingual Q5M PRN chest 02/22/21 06/17/23 Rx tablet (Nitrostat) pain #25 tabs calcium carbonate 600 mg-vitamin 1 tab PO QAM 08/24/21 06/17/23 History D3 5 mcg (200 unit) tablet ondansetron 4 mg disintegrating 4 mg translingual Q12 PRN Nausea 08/24/21 06/17/23 History tablet acetaminophen 650 mg 650 mg PO Q8H PRN Pain 12/04/21 06/17/23 History tablet,extended release (Tylenol Arthritis Pain) folic acid 1 mg tablet 1 mg PO QAM 05/24/22 06/17/23 History silver sulfadiazine 1 % topical 1 applic topical DAILY #20 grams 11/01/22 06/17/23 Rx cream magnesium oxide 400 mg (241.3 mg 400 mg PO BID #180 tabs 12/05/22 06/17/23 Rx magnesium) tablet atorvastatin 40 mg tablet 40 mg PO QAM #90 tabs 02/25/23 06/17/23 Rx levothyroxine 75 mcg tablet 75 mcg PO QAM #90 tabs 02/25/23 06/17/23 Rx nortriptyline 10 mg capsule 10 mg PO QAM #90 caps 02/25/23 06/17/23 Rx escitalopram oxalate 20 mg tablet 20 mg PO QAM #90 tabs 02/26/23 06/17/23 Rx (Lexapro) nortriptyline 25 mg capsule 25 mg PO HS #90 caps 02/27/23 06/17/23 Rx metoprolol succinate 50 mg 50 mg PO DAILY #180 tabs 03/18/23 06/17/23 Rx tablet,extended release 24 hr valacyclovir 1 gram tablet 2,000 mg PO DAILY PRN Cold Sores 03/24/23 06/17/23 Rx #12 tabs montelukast 10 mg tablet 10 mg PO QAM #90 tabs 04/24/23 06/17/23 Rx (Singulair) potassium chloride 10 mEq 10 meq PO QAM #90 tabs 04/24/23 06/17/23 Rx tablet,extended release aspirin 81 mg tablet,delayed 81 mg PO QAM #90 tabs 05/20/23 06/17/23 Rx release celecoxib 200 mg capsule (Celebrex) 200 mg PO BID #180 caps 05/20/23 06/17/23 Rx lansoprazole 15 mg capsule,delayed 15 mg PO QAM #90 caps 05/20/23 06/17/23 Rx release (Prevacid 24Hr) albuterol sulfate 90 mcg/actuation 1 - 2 puff inhalation .Q 4-6 HRS 06/17/23 06/17/23 History aerosol inhaler (Ventolin HFA) PRN shortness of breath or wheezing Patient History Medical History (Updated 06/22/23 @ 12:04 by Julio Patel Jr, MD) Abnormal CT of the abdomen Allergic rhinitis Anemia Anxiety and depression Asthma Cholangitis Cholecystitis with perforation of gallbladder Coronary artery disease Cardiac catheterization -02/22/2021:Impression: 1. Severe CAD involving ostial/proximal LAD (100%), filling via left to left and right to left collaterals. 2. Otherwise nonobstructive CAD involving the mid circumflex. 3. No aortic stenosis. 4. Normal left-sided filling pressure. COVID-19 Encounter for pre-operative examination GERD (gastroesophageal reflux disease) History of COVID-19 DX 05/2021 (NO SYMPTOMS>PT STATES WAS A FALSE POSITIVE) History of right breast cancer s/p lumpectomy (1969)- no chemo or xrt Hx of fracture Right shoulder AC joint fracture (10/2020) due to traumatic event > healing without surgical intervention Hyperlipidemia Hypertension Hypotension Hypothyroidism Hypoxia IBS (irritable bowel syndrome) Insomnia Ischemic cardiomyopathy Liver abscess Lumbar facet joint syndrome Lumbar spinal stenosis Rheumatoid arthritis Sacroiliitis Steroid-induced osteoporosis V-tach Volume overload Surgical History H/O arthroscopy of shoulder L shoulder H/O cataract extraction R/L eye History of arthroscopy of left knee History of biopsy History of breast biopsy History of cardiac cath NO - [place] - Dr. Arthur History of ERCP WITH STENT (NOT PRESENT) History of foot surgery R/L History of lumpectomy of right breast History of right knee joint replacement History of tonsillectomy History of total abdominal hysterectomy and bilateral salpingo-oophorectomy d/t endometriosis Nausea and vomiting after administration of anesthetic agent S/P ORIF (open reduction internal fixation) fracture Left ankle S/p reverse total shoulder arthroplasty Left reverse TSA (02/26/19): Grade view 2, MAC#3, ETT 7 + PNB at [facility] (scope patch used) Family History Grandmother (Paternal) Family history of diabetes mellitus Grandmother (Maternal) Family history of diabetes mellitus Father Coronary heart disease Alzheimer disease Myocardial infarction Osteoarthritis COPD (chronic obstructive pulmonary disease) Lung disease Mother Myocardial infarction COPD (chronic obstructive pulmonary disease) Other No family history of adverse response to anesthesia Denies family history of Ovarian cancer Prostate cancer Breast cancer Colorectal cancer Social History Smoking Status: Never smoker Second Hand Exposure: Yes; Do You Dip or Chew Tobacco: No; Hx Alcohol Use: No Hx Substance Use: No Preferred Language: Upper Sorbian Communication Ability: Effective Visual Impairment: No Limitations Hearing Ability: Normal Ticketing Agent Required: No Beliefs That Will Affect Care: None marital status: Current Living Situation: Spouse and Family Current Living Situation Comment: Home with family current occupational status: retired How many Children do You have: 2 Feels Safe at Home: Yes Childhood Exposure to Second-Hand Smoke: Yes Diet: regular Diet Comment: regular caffeine: Yes (coffee) during the past year weight has: remained stable Dental Care, Regularly: No Physical Activity Frequency: Daily Physical Activity Frequency Comment: walking indoors Seatbelt Use: always Sunscreen Use: No Assistive Devices: Raised Toilet Seat, Scooter/Electric Scooter and Wheelchair Review of Systems 2 Review of Systems: All systems reviewed & are unremarkable except as noted in HPI & below Physical Exam Constitutional: + ill appearing Respiratory: normal respiratory effort, lungs clear to auscultation Cardiovascular: RRR, no murmur, no edema Gastrointestinal (Abdomen): normal bowel sounds, soft, nontender, no hepatosplenomegaly Results & Data Vital Signs (Past 12 Hours) Vital Signs Temp Pulse Pulse Resp BP Pulse Ox O2 Del Method 06/22/23 07:54 36.6 C 90 16 165/76 H 95 Room Air 06/22/23 06:05 87 06/22/23 03:00 36.6 C 88 19 126/76 95 Room Air Laboratory Results 06/22/23 06/22/23 06/22/23 Range/Units 07:48 06:16 06:16 WBC 11.05 H (4.8-10.8) K/ul RBC 2.10 L (4.20-5.40) M/uL Hgb 7.6 L (12.0-16.0) g/dl Hct 22.9 L (37.0-47.0) % MCV 109.0 H (80.0-100.0) fL MCH 36.2 H (25.0-34.0) pg MCHC 33.2 (32.0-36.0) g/dL RDW Std Deviation 63.2 H (36.4-46.3) fL RDW Coeff of Ender 16.0 H (11.5-14.5) % Plt Count 56 L (130-400) K/uL MPV 11.1 (9.4-12.4) fL Sodium 147 H (136-145) mmol/L Potassium 3.8 D (3.5-5.1) mmol/L Chloride 127 H (98-107) mmol/L Carbon Dioxide 17 L (21-32) mmol/L Anion Gap 3 (3-11) BUN 30 H (6-23) mg/dl Creatinine 1.05 D (0.6-1.2) mg/dl Est Cr Clr Drug Dosing 43.0 ml/min Est GFR ( Amer) 61.9 ml/min Est GFR (Non-Af Amer) 53.4 ml/min BUN/Creatinine Ratio 28.6 H (10-20) Glucose 99 (70-99(Fasting)) mg/dl POC Glucose 108 H (70-99) mg/dl Calcium 7.8 L (8.6-10.3) mg/dl Phosphorus 1.6 L (2.5-4.9) mg/dl Magnesium 1.5 L (1.7-2.4) mg/dl Ammonia (18-72) umol/L C-Reactive Protein 3.28 H (0-0.5) mg/dl Hepatitis A IgM Ab (NON-REACTIVE) Hep Bs Antigen (NON-REACTIVE) Hep Bs Ag Confirmation Hep B Core IgM Ab (NON-REACTIVE) Hepatitis C Ab (EIA) (NON-REACTIVE) 06/22/23 06/21/23 06/21/23 Range/Units 06:16 21:00 16:31 WBC (4.8-10.8) K/ul RBC (4.20-5.40) M/uL Hgb (12.0-16.0) g/dl Hct (37.0-47.0) % MCV (80.0-100.0) fL MCH (25.0-34.0) pg MCHC (32.0-36.0) g/dL RDW Std Deviation (36.4-46.3) fL RDW Coeff of Ender (11.5-14.5) % Plt Count (130-400) K/uL MPV (9.4-12.4) fL Sodium (136-145) mmol/L Potassium (3.5-5.1) mmol/L Chloride (98-107) mmol/L Carbon Dioxide (21-32) mmol/L Anion Gap (3-11) BUN (6-23) mg/dl Creatinine (0.6-1.2) mg/dl Est Cr Clr Drug Dosing ml/min Est GFR ( Amer) ml/min Est GFR (Non-Af Amer) ml/min BUN/Creatinine Ratio (10-20) Glucose (70-99(Fasting)) mg/dl POC Glucose 106 H 127 H (70-99) mg/dl Calcium (8.6-10.3) mg/dl Phosphorus (2.5-4.9) mg/dl Magnesium (1.7-2.4) mg/dl Ammonia 25.0 (18-72) umol/L C-Reactive Protein (0-0.5) mg/dl Hepatitis A IgM Ab (NON-REACTIVE) Hep Bs Antigen (NON-REACTIVE) Hep Bs Ag Confirmation Hep B Core IgM Ab (NON-REACTIVE) Hepatitis C Ab (EIA) (NON-REACTIVE) 06/21/23 Range/Units 10:02 WBC (4.8-10.8) K/ul RBC (4.20-5.40) M/uL Hgb (12.0-16.0) g/dl Hct (37.0-47.0) % MCV (80.0-100.0) fL MCH (25.0-34.0) pg MCHC (32.0-36.0) g/dL RDW Std Deviation (36.4-46.3) fL RDW Coeff of Ender (11.5-14.5) % Plt Count (130-400) K/uL MPV (9.4-12.4) fL Sodium (136-145) mmol/L Potassium (3.5-5.1) mmol/L Chloride (98-107) mmol/L Carbon Dioxide (21-32) mmol/L Anion Gap (3-11) BUN (6-23) mg/dl Creatinine (0.6-1.2) mg/dl Est Cr Clr Drug Dosing ml/min Est GFR ( Amer) ml/min Est GFR (Non-Af Amer) ml/min BUN/Creatinine Ratio (10-20) Glucose (70-99(Fasting)) mg/dl POC Glucose (70-99) mg/dl Calcium (8.6-10.3) mg/dl Phosphorus (2.5-4.9) mg/dl Magnesium (1.7-2.4) mg/dl Ammonia (18-72) umol/L C-Reactive Protein (0-0.5) mg/dl Hepatitis A IgM Ab NON-REACTIVE (NON-REACTIVE) Hep Bs Antigen NON-REACTIVE (NON-REACTIVE) Hep Bs Ag Confirmation TNP Hep B Core IgM Ab NON-REACTIVE (NON-REACTIVE) Hepatitis C Ab (EIA) NON-REACTIVE (NON-REACTIVE) Diagnostic Findings Chest X-Ray 06/17/23 13:31 XR chest 1V portable CLINICAL HISTORY: Sepsis TECHNIQUE: Single frontal radiograph of the chest was obtained. Comparison: Comparison is made to chest radiograph 10/19/2021 FINDINGS: Bilateral shoulder arthroplasties are seen. The cardiomediastinal silhouette is normal. The lungs are clear. No evidence of pleural effusion or pneumothorax. Old healed left rib fracture. IMPRESSION: No acute abnormalities and in particular no radiographic evidence of pneumonia. ACT 112: Negative or not required by law. Electronically signed by: Vicente Edwards M.D. 06/17/2023 3:09 PM Abdomen/Pelvis CT 06/19/23 03:58 CT chest diagnostic wo con, CT abd pelvis wo con CT DOSE: 4127.29 mGy.cm CLINICAL HISTORY: 73 years-old Female with ams. Acute chest and abdominal pain with sepsis TECHNIQUE: Multiaxial CT images of the chest, abdomen and pelvis were performed without contrast. A dose lowering technique was utilized adhering to the principles of ALARA. COMPARISON: CT chest 08/24/2021, CT abdomen and pelvis 06/17/2023. FINDINGS: CT CHEST: Artifact from bilateral shoulder arthroplasties limits the study. Mild cardiomegaly with extensive coronary artery calcifications. Atherosclerosis of the aorta. Small pleural effusions with mild dependent bibasilar consolidation. Intralobular septal thickening with intermixed groundglass densities. No suspicious pulmonary nodules or masses. Degenerative changes of the spine. Partially imaged left scapular fractures with marginal sclerosis are likely subacute to chronic. Subacute to chronic appearing left-sided rib fractures. Progressive vertebral body height loss with kyphosis and fracture displacement involving the chronic T2 burst fracture with 3 mm retropulsion. Mild T8 superior endplate compression deformity without retropulsion is chronic. Chronic appearing T10 and T11 compression deformities. T12 burst fracture with retropulsion is unchanged. CT ABDOMEN/PELVIS: Limited exam without use of contrast and also secondary to respiratory motion artifact. No free air. The unenhanced spleen, atrophic pancreas and adrenal glands are unremarkable. The gallbladder appears contracted. Suspected cirrhotic liver. Probable cyst of the right hepatic lobe, 1.6 cm. Cortical thinning of the kidneys. Exophytic prominence of the interpolar left kidney without definitive lesion identified without use of IV contrast. There is no hydronephrosis. Decompressed bladder with Lord catheter in place. Atherosclerosis of the aorta. Subcentimeter retroperitoneal lymph nodes. Colonic diverticulosis. There is diffuse wall thickening again noted throughout the colon with adjacent pericolonic stranding. Small volume of abdominal pelvic ascites. Noninflamed appendix. Generalized body wall edema. Lumbar levoscoliosis. Chronic thoracolumbar compression deformities with chronic L5 pars defects. IMPRESSION: 1. Findings are again compatible with a nonspecific pancolitis. 2. Cardiomegaly with mild pulmonary edema, small pleural effusions and bibasilar consolidation favoring atelectasis. 3. Suspected cirrhotic liver with small volume of abdominal pelvic ascites. 4. Subacute to chronic appearing left scapular fractures are partially imaged. 5. Additional findings as above. ACT 112: Negative or not required by law. Electronically signed by: Greyson Merchant M.D. 06/19/2023 7:[address] 06/19/23 03:58 CT chest diagnostic wo con, CT abd pelvis wo con CT DOSE: 4127.29 mGy.cm CLINICAL HISTORY: 73 years-old Female with ams. Acute chest and abdominal pain with sepsis TECHNIQUE: Multiaxial CT images of the chest, abdomen and pelvis were performed without contrast. A dose lowering technique was utilized adhering to the principles of ALARA. COMPARISON: CT chest 08/24/2021, CT abdomen and pelvis 06/17/2023. FINDINGS: CT CHEST: Artifact from bilateral shoulder arthroplasties limits the study. Mild cardiomegaly with extensive coronary artery calcifications. Atherosclerosis of the aorta. Small pleural effusions with mild dependent bibasilar consolidation. Intralobular septal thickening with intermixed groundglass densities. No suspicious pulmonary nodules or masses. Degenerative changes of the spine. Partially imaged left scapular fractures with marginal sclerosis are likely subacute to chronic. Subacute to chronic appearing left-sided rib fractures. Progressive vertebral body height loss with kyphosis and fracture displacement involving the chronic T2 burst fracture with 3 mm retropulsion. Mild T8 superior endplate compression deformity without retropulsion is chronic. Chronic appearing T10 and T11 compression deformities. T12 burst fracture with retropulsion is unchanged. CT ABDOMEN/PELVIS: Limited exam without use of contrast and also secondary to respiratory motion artifact. No free air. The unenhanced spleen, atrophic pancreas and adrenal glands are unremarkable. The gallbladder appears contracted. Suspected cirrhotic liver. Probable cyst of the right hepatic lobe, 1.6 cm. Cortical thinning of the kidneys. Exophytic prominence of the interpolar left kidney without definitive lesion identified without use of IV contrast. There is no hydronephrosis. Decompressed bladder with Lord catheter in place. Atherosclerosis of the aorta. Subcentimeter retroperitoneal lymph nodes. Colonic diverticulosis. There is diffuse wall thickening again noted throughout the colon with adjacent pericolonic stranding. Small volume of abdominal pelvic ascites. Noninflamed appendix. Generalized body wall edema. Lumbar levoscoliosis. Chronic thoracolumbar compression deformities with chronic L5 pars defects. IMPRESSION: 1. Findings are again compatible with a nonspecific pancolitis. 2. Cardiomegaly with mild pulmonary edema, small pleural effusions and bibasilar consolidation favoring atelectasis. 3. Suspected cirrhotic liver with small volume of abdominal pelvic ascites. 4. Subacute to chronic appearing left scapular fractures are partially imaged. 5. Additional findings as above. ACT 112: Negative or not required by law. Electronically signed by: Greyson Merchant M.D. 06/19/2023 7:[address] 06/19/23 03:58 CR Exam(s): CT HEAD Without Contrast EXAM: CT Head Without Intravenous Contrast CLINICAL HISTORY: Reason for exam: ams. TECHNIQUE: Axial computed tomography images of the head/brain without intravenous contrast. Automated exposure control was utilized for the study. A dose lowering technique was utilized adhering to the principles of ALARA. COMPARISON: Comparison made to prior head CT from October 24, 2021. FINDINGS: Study is limited secondary to motion artifact. Brain: Unremarkable. No hemorrhage. No significant white matter disease. No edema. There is a moderate sized right choroidal fissure cyst. Ventricles: Unremarkable. No ventriculomegaly. Bones/joints: Unremarkable. No acute fracture. Soft tissues: Bilateral lens replacements. Sinuses: Unremarkable as visualized. No acute sinusitis. Mastoid air cells: Unremarkable as visualized. No mastoid effusion. IMPRESSION: No evidence of acute intracranial pathology. Communications: Call Doctor Stroke Electronically signed by: Shweta Orozco MD 06/19/23 04:51 AM KUB X-Ray 06/21/23 09:22 KUB CLINICAL HISTORY: c diff colitis COMPARISON STUDY: CT of the abdomen and pelvis and KUB June 19, 2023. FINDINGS: The bowel gas pattern is normal. There is no evidence for a bowel obstruction. Amount of stool is within normal limits. A round lucency projects over the bladder. This likely reflects a Lord balloon. IMPRESSION: 1. No evidence for a bowel obstruction. 2. Round lucency which projects over the bladder. This may reflect a distended Lord balloon. ACT 112: Negative or not required by law. Electronically signed by: Rodney Gilbert M.D. 06/21/2023 11:47 AM
[2023-06-22] MEDS: POTASSIUM CHLORIDE CRTAB 20 MEQ TABCR PO SCH (14:19)
--- NOTE | 2023-06-22 22:49 | Hospitalist Progress Note ---
Date of Service June 22, 2023 Assessment & Plan (1) Hepatic encephalopathy: Plan: Now on a diet.. IV fluids. Supportive care. Serial ammonia levels: has normalized. Lactulose will be placed on hold after AM dose given amount of loose stools. Patient received a morning dose of lactulose on 06/22. In regards to etiology of liver failure, it does appear patient has had an elevated alk phos and INR since 2020. Perhaps PEDERSEN. Will order hepatitis panel. Imaging suggesting cirrhosis, however, patient will likely need a biopsy to confirm. Ammonia level appears controlled. (2) Severe sepsis: Plan: Present on admission. Continue IV fluids. Treat C. difficile enteritis. Blood cultures negative to date (3) Colitis: Plan: C. difficile isolated causing enteritis. Vancomycin suspension will continue Continue IV fluids will monitor inflammatory markers: decreasing. Responding to antibiotics. (4) Renal failure: Plan: Acute kidney injury probably from volume depletion. Continue IV fluids. Monitor intake and output. Serial lab improving on 06/21 (5) Thrombocytopenia: Plan: Mild. Appears to be due to active infection/ cirrhosis. Serial labs (6) Elevated INR: Plan: Mild. We will follow (7) Hypocalcemia: Plan: Parenteral replacement ordered. Serial labs. Continue oral replacement therapy when able (8) Hypomagnesemia: Plan: Parenteral replacement. Serial labs l (9) Hypoglycemia: Plan: Continue IV fluids with dextrose. Accu-Cheks before meals and at bedtime. (10) HFrEF (heart failure with reduced ejection fraction): Plan: Known ejection fraction of 40 to 45%. No evidence of overt CHF at this time. Monitor intake and output. (11) Hypothyroidism: Plan: Free T3 and free T4 levels are low. IV replacement therapy for now. Eventual switch back to oral replacement at a higher dosage than she usually takes at home (12) Hypertension: Plan: Stable. IV metoprolol for now (13) GERD (gastroesophageal reflux disease): Plan: Stable. Continue PPI therapy Plan To be determined Admission and Anticipated Discharge Date Admission Date: June 17, 2023 Subjective 73 yo female reports no new symptoms. She reports she actually feels better. Her stools have decreased in frequency. Review of Systems Review of Systems: All systems reviewed & are unremarkable except as noted in HPI & below Physical Exam Physical Exam: General-awake HEENT-head atraumatic and normocephalic, pupils equal and reactive to light. Neck-no lymphadenopathy or thyromegaly, trachea midline Chest-clear to auscultation anteriorly. No audible wheezing or rhonchi i Cardiac-regular rate and rhythm, normal S1 and S2 Abdomen-normal bowel sounds, no hepatosplenomegaly. Bowel sounds are active. No distention Extremities-no edema Results & Data Results & Data Vital Signs (Past 12 Hours) Vital Signs Temp Pulse Resp BP Pulse Ox O2 Del Method 06/22/23 19:00 36.2 C L 91 H 14 136/84 97 Room Air 06/22/23 19:04 Room Air 06/22/23 16:00 36.7 C 92 H 16 150/83 H 96 Room Air 06/22/23 12:00 36.6 C 87 18 124/71 95 Room Air PG Care Time/CCT Total # of Minutes Spent Total Time Spent with Patient: Total time spent is greater than 50% in coordination of care (as documented) at patient's floor/unit and/or counseling patient: Coding Level of Care Code 39112 SUB INP/OBS CARE 2/35MIN Diagnoses Hepatic encephalopathy K76.82 Severe sepsis A41.9; R65.20 Colitis K52.9 Renal failure N19 Thrombocytopenia D69.6 Elevated INR R79.1 Hypocalcemia E83.51 Hypomagnesemia E83.42 Hypoglycemia E16.2 HFrEF (heart failure with reduced ejection fraction) I50.20 Hypothyroidism E03.9 Hypertension I10 GERD (gastroesophageal reflux disease) K21.9
[2023-06-23] MEDS: CHERRY SYRUP 5 ML UDP PO SCH ×4 (00:08→18:18)
[2023-06-23] MEDS: VANCOMYCIN HCL 250 MG/5 ML SOLN PO SCH ×4 (00:21→18:18)
--- NOTE | 2023-06-23 06:01 | Electrocardiogram Report ---
Test Reason : Blood Pressure : / mmHG Vent. Rate : 095 BPM Atrial Rate : 095 BPM P-R Int : 184 ms QRS Dur : 112 ms QT Int : 308 ms P-R-T Axes : 000 -21 157 degrees QTc Int : 387 ms Sinus rhythm with frequent , and consecutive Premature supraventricular complexes Low voltage QRS Cannot rule out Anteroseptal infarct (cited on or before 24-AUG-2021) Nonspecific T wave abnormality Abnormal ECG When compared with ECG of 19-JUN-2023 04:01, Nonspecific T wave abnormality now evident in Anterior leads Premature supraventricular complexes are now Present Confirmed by Vladimir Martin ([id number] on 06/23/2023 6:01:42 AM Referred By: REFERRED SELF Confirmed By:Vladimir Martin
[2023-06-23] MEDS: LEVOTHYROXINE SODIUM 75 MCG TABLET PO SCH (06:06)
[2023-06-23 07:13] LABS: Hematocrit (blood only) 19.7 % (37.0-47.0); Hemoglobin 6.5 g/dl (12.0-16.0); Mean Corpuscular Hemoglobin 34.9 pg (25.0-34.0); Mean Corpuscular Volume 105.9 fL (80.0-100.0); Mean Platelet Volume 12.8 fL (9.4-12.4); Platelet Count 59 K/uL (130-400); RDW Coefficient of Variation 16.2 % (11.5-14.5); Red Blood Count 1.86 M/uL (4.20-5.40); White Blood Count 11.29 K/ul (4.8-10.8)
--- NOTE | 2023-06-23 07:22 | XRay Report ---
XR chest 1V portable CLINICAL HISTORY: Shortness of breath. COMPARISON STUDY: Chest radiograph 09/17/2022. Chest CT June 19, 2023. FINDINGS: Lung volumes are diminished. This is unchanged. Small left and trace right pleural effusion s are present. The mild bibasilar opacities, greater on the left. There is mild interstitial thickeni ng. Cardiomediastinal silhouette is stable. IMPRESSION: 1. Small left and trace right pleural effusions. Bibasilar opacities which could reflect pneumonia or atelectasis. 2. Interstitial thickening which favors mild pulmonary edema. ACT 112: Negative or not required by law. Electronically signed by: Rodney Gilbert M.D. 06/23/2023 7:20 AM
[2023-06-23 07:24] LABS: Albumin Level 2.1 gm/dl (3.4-5.0); BUN Creatinine Ratio 31.5 (10-20); Bilirubin,Total 0.8 mg/dl (0.2-1.0); C Reactive Protein 2.49 mg/dl (0-0.5); Calcium 7.6 mg/dl (8.6-10.3); Creatinine Clr Calc Pharmacy 61.4 ml/min; Est GFR (Non-African American) 82.9 ml/min; Globulin 2.2 gm/dl (2.5-4.0); Potassium 3.8 mmol/L (3.5-5.1); Total Protein 4.3 gm/dl (6.0-8.3)
[2023-06-23] MEDS: carvediloL 6.25 MG TAB PO SCH ×2 (07:39→16:21)
[2023-06-23] MEDS ORDERED: SODIUM CHLORIDE 0.9% 250 ML IV PRN (07:58)
[2023-06-23 09:06] LABS: Hematocrit (blood only) 20.6 % (37.0-47.0); Hemoglobin 6.8 g/dl (12.0-16.0)
--- NOTE | 2023-06-23 09:47 | Gastroenterology Progress Note ---
Date of Service June 23, 2023 Assessment & Plan (1) Abnormal CT of the abdomen: (2) Clostridium difficile colitis: Plan Pt is a 73 yo female admitted with sepsis, RHIANNON, found to have Cdiff colitis. There was a concern for cirrhosis of liver on non-contrasted CT scan exam. LFTs normal except mildly elevated alk phos. Pt w hx of cholelithiasis, choledocholithiasis, s/p Axios stent placement, subsequent development of liver abscesses in 2021. In reviewing her prior abdominal CT scans up to 2021, her liver doesn't appear cirrhotics. She denies prior hx of liver disease, nor ETOh abuse. Acute hepatitis a/b/c are negative. - Repeat CT-liver 4 phase to r/o cirrhosis as OP once kidney function is normal - Will obtain liver serologies - Drop in blood ct wo blake s/s of GI bleeding. Will repeat INR. Vit K administration, continue monitoring blood ct and transfuse for goal Hgb >7 Admission and Anticipated Discharge Date Admission Date: June 17, 2023 Supervising Physician Co-Signing Physician Notes I performed a history and physical examination of the patient today, including specifically on physical exam - soft abdomen. I have discussed the patient's management with the advanced practitioner. Please refer to the nurse practitioner's note for the documented findings and plan of care. Doubt she has cirrhosis but this can be further investigated as OP with EUS guided LB. C.diff improving with PO Vancomycin. Recall GI if needed. Subjective Pt denies CP, SOB, abd pain, n/v. Dignishield removed as stools were getting pasty. No signs of blood in stools/rectum per RN. Prior GI procedures: EUS 07/2021: Cholecystoduodenostomy was performed using a 10 mm Axios stent EGD 08/2021: Axios stent slightly migrated into gallbladder, liver abscess development into gallbladder. Cardiac arrest during procedure EGD 09/2021: Cholecystoduodenal Axios stent was removed, tract dilated, EHL of the stones performed and the lumen was completely cleared out from all the stones, no stones remained. The Percutaneous cholecystostomy catheter was removed. Two double pigtail biliary plastic stents were placed to keep the cholecystoduodenostomy tract open for permanent drainage EGD 10/2021: One plastic stent removed, the other one adjusted Colonoscopy 05/2022: Int hemorrhoids, diverticulosis in sigmoid colon Review of Systems Review of Systems: All systems reviewed & are unremarkable except as noted in HPI & below Physical Exam Constitutional: WD/WN, vitals as above well groomed, cooperative and comfortable Eyes: PERRL, conjunctivae normal, anicteric sclerae ENMT: external ear and nose normal, oropharynx normal Respiratory: normal respiratory effort, lungs clear to auscultation Cardiovascular: RRR, no murmur, no edema Gastrointestinal (Abdomen): normal bowel sounds, soft, nontender, no hepatosplenomegaly Skin: + pallor; no jaundice Neurologic: Motor/Sensory: no asterixis Psychiatric: A+Ox3, euthymic affect Lymphatic: + lymphedema (generalized edema on bilateral UE, LE) Results & Data Vital Signs (Past 12 Hours) Vital Signs Temp Pulse Pulse Resp BP Pulse Ox O2 Del Method 06/23/23 07:30 36.5 C 93 H 18 137/86 98 Room Air 06/23/23 03:00 36.9 C 89 16 152/81 H 94 Room Air 06/22/23 23:00 93 H 06/22/23 23:00 36.7 C 91 H 14 151/76 H 97 Room Air
[2023-06-23 10:25] LABS: INR 1.1 (0.9-1.1); Prothrombin Time 12.4 Seconds (9.0-12.0)
[2023-06-23 18:35] LABS: Hemoglobin 9.5 g/dl (12.0-16.0)
--- NOTE | 2023-06-23 22:07 | Hospitalist Progress Note ---
Date of Service June 23, 2023 Assessment & Plan (1) Severe sepsis: Plan: -Admit to the PCU on tele -Currently stable after receiving her initial Sepsis fluid bolus and a dose of Cefepime in the ED -At this time the etiology of the patient's sepsis is likely her colitis as she is without other sources of infection on labs, imaging, and exam -Did speak with radiology regarding the hepatic cysts on CT today and her previous hx of liver abscesses, appreciate their help, they confirm that findings are consistent with hepatic cysts and not an abscess -Will obtain tick borne panels with her thrombocytopenia and elevated bili -Patient denies recent abx use, blood BM's, and melena, monitor stool studies and C. diff PCR -S/P one dose of Cefepime in the ED, will continue with Cefepime and add Flagyl for anaerobic coverage -Initial lactate elevated at 3.2, repeat 2 hour down to 2.8 after 2L NSS in the ED -Continue LR at 1000 mL/hr x 2 bags overnight as she appears significantly dehydrated on exam -Follow infectious workup and tailor abx accordingly -Holding chemical DVT PPX until DIC labs are back; BL OLYA's for now -HH, low potassium diet for now with renal failure On 06/23 Now with anemia, patient does not appear to be actively bleeding today. Perhaps patient was hemoconcentrated on admission and lost some blood with the c difff infection. Her BMs have subsided today, and her WBC and procal are also improving. Consulted GI. (2) Colitis: Plan: -Noted on CT of the abd/pelvis wo con today -Patient has been experiencing mild lower abd pain -Last BM was on 06/14, denies bloody BM's or melena -No recent abx use -Follow stool studies and C. diff PCR -Continue Cefepime and flagyl for now (3) Renal failure: Plan: -Cr at 1.85 today, baseline is near 0.8 -Likely due to severe dehydration and severe sepsis -No signs of obstruction on CT, no UTI -Normally uses BID Celebrex; hold for now -Will place hunter cath on admission, patient is ok with this for now -Continue light IV hydration, monitor intake and output q6h overnight -Continue IV hydration overnight, avoid nephrotoxic agents -Monitor daily renal function; Nephrology consult for worsening renal function (4) Thrombocytopenia: Plan: -Platelets at 119 today -Multiple possible etiologies including sepsis, tick borne illness, and possible Cirrhosis on CT of the abd/pelvis today -AST/ALT WNL today -No signs of active bleeding -Will continue to follow DIC labs and infectious workup (5) Elevated INR: Plan: -INR elevated at 1.5 today -APTT and PT are also elevated -Patient without signs of bleeding, has been stable since her fluid resuscitation in the ED -Noted to have 2+ urine bilirubin as well -Patient is not on medication to cause these findings, could be related to her sepsis -Will obtain STAT D-dimer, LDH, haptoglobin, fibrinogen, peripheral smear to further evaluate for possible DIC -Monitor daily INR for now (6) Hypocalcemia: Plan: -Ionized calcium at 0.69 today with calcium of 7.7, and albumin of 2.3 -Likely multifactorial including poor oral intake, low albumin, and yearly Zolendronic acid infusions (last was in December) -Will obtain PTH and phos level on admission -Corrected calcium is 9.1 -Will start BID PO calcium carbonate tonight -Monitor am ionized calcium level (7) Elevated bilirubin: Plan: -Initial Bili at 1.1 with direct bili of 0.7 -AST and ALT WNL -Patient is without RUQ abdominal discomfort or signs of acute bili or bile duct abnormalities on CT today -Likely due to dehydration -Continue IV hydration, monitor daily CMP; would get RUQ US if she starts to develop RUQ pain (8) Hypomagnesemia: Plan: -Noted to be 1.5 today -Is a chronic problem likely exacerbated by recent poor oral intake -S/P 2 doses of 1gm IV mag-sulfate in the ED -Will hold additional mag overnight due to renal failure, can continue PO home mag tomorrow (9) Hypoglycemia: Plan: -Initial hypoglycemic at 65 in the ED -Likely due to very poor oral intake and severe sepsis -Currently stable (10) HFrEF (heart failure with reduced ejection fraction): Plan: -Currently dehydrated -LVEF of 40-45% -Continue to monitor volume status while on light IV hydration overnight (11) Hypothyroidism: Plan: -Continue levothyroxine (12) Hypertension: Plan: -Currently stable -Can continue metoprolol tomorrow as long as she remains hemodynamically stable (13) GERD (gastroesophageal reflux disease): Plan: -Continue PPI Admission and Anticipated Discharge Date Admission Date: June 17, 2023 Subjective Patient was seen early in the day. Macie thas no significant bowel movements today. She feels well. JUst fatigued. Updated as she required transfusion Review of Systems Review of Systems: All systems reviewed & are unremarkable except as noted in HPI & below Physical Exam Physical Exam: General-awake HEENT-head atraumatic and normocephalic, pupils equal and reactive to light. Neck-no lymphadenopathy or thyromegaly, trachea midline Chest-clear to auscultation anteriorly. No audible wheezing or rhonchi i Cardiac-regular rate and rhythm, normal S1 and S2 Abdomen-normal bowel sounds, no hepatosplenomegaly. Bowel sounds are active. No distention Extremities-no edema Results & Data Results & Data Vital Signs (Past 12 Hours) Vital Signs Temp Pulse Pulse Resp BP BP BP 06/23/23 19:18 36.7 C 94 H 18 162/93 H 06/23/23 14:13 82 06/23/23 14:13 82 06/23/23 15:48 36.9 C 88 18 164/79 H 06/23/23 12:21 36.5 C 85 18 165/89 H 06/23/23 11:56 36.6 C 88 18 161/85 H 06/23/23 10:56 36.5 C 81 18 150/84 H 06/23/23 10:26 36.7 C 86 18 137/84 06/23/23 10:11 36.6 C 83 18 154/87 H Pulse Ox O2 Del Method 06/23/23 19:18 97 Room Air 06/23/23 14:13 06/23/23 14:13 06/23/23 15:48 96 Room Air 06/23/23 12:21 99 06/23/23 11:56 99 06/23/23 10:56 99 06/23/23 10:26 98 06/23/23 10:11 98 PG Care Time/CCT Total # of Minutes Spent Total Time Spent with Patient: Total time spent is greater than 50% in coordination of care (as documented) at patient's floor/unit and/or counseling patient: Coding Level of Care Code 29246 SUB INP/OBS CARE 2/35MIN Diagnoses Severe sepsis A41.9; R65.20 Colitis K52.9 Renal failure N19 Thrombocytopenia D69.6 Elevated INR R79.1 Hypocalcemia E83.51 Elevated bilirubin R17 Hypomagnesemia E83.42 Hypoglycemia E16.2 HFrEF (heart failure with reduced ejection fraction) I50.20 Hypothyroidism E03.9 Hypertension I10 GERD (gastroesophageal reflux disease) K21.9
[2023-06-24] MEDS: CHERRY SYRUP 5 ML UDP PO SCH ×5 (01:08→23:40)
[2023-06-24] MEDS: VANCOMYCIN HCL 250 MG/5 ML SOLN PO SCH ×5 (01:08→23:40)
[2023-06-24] MEDS: LEVOTHYROXINE SODIUM 75 MCG TABLET PO SCH (05:21)
[2023-06-24 06:25] LABS: Hematocrit (blood only) 26.9 % (37.0-47.0); Hemoglobin 9.3 g/dl (12.0-16.0); Mean Corpuscular Hemoglobin 34.4 pg (25.0-34.0); Mean Corpuscular Hgb Conc 34.6 g/dL (32.0-36.0); Mean Corpuscular Volume 99.6 fL (80.0-100.0); Mean Platelet Volume 12.4 fL (9.4-12.4); Platelet Count 61 K/uL (130-400); RDW Coefficient of Variation 19.1 % (11.5-14.5); RDW Standard Deviation 68.5 fL (36.4-46.3); White Blood Count 11.21 K/ul (4.8-10.8)
[2023-06-24 06:52] LABS: BUN Creatinine Ratio 36.5 (10-20); Calcium 7.5 mg/dl (8.6-10.3); Creatinine Clr Calc Pharmacy 88.1 ml/min; Est GFR (African American) 111.4 ml/min; Est GFR (Non-African American) 96.1 ml/min; Immunoglobulin A 286.8 mg/dl (70-400); Potassium 3.6 mmol/L (3.5-5.1)
[2023-06-24 07:40] LABS: Ferritin 1159.4 ng/ml (8-388)
[2023-06-24] MEDS: carvediloL 6.25 MG TAB PO SCH ×2 (09:22→19:17)
--- NOTE | 2023-06-24 23:21 | Hospitalist Progress Note ---
Date of Service June 24, 2023 Assessment & Plan (1) Severe sepsis: Plan: -Admit to the PCU on tele -Currently stable after receiving her initial Sepsis fluid bolus and a dose of Cefepime in the ED -At this time the etiology of the patient's sepsis is likely her colitis as she is without other sources of infection on labs, imaging, and exam -Did speak with radiology regarding the hepatic cysts on CT today and her previous hx of liver abscesses, appreciate their help, they confirm that findings are consistent with hepatic cysts and not an abscess -Will obtain tick borne panels with her thrombocytopenia and elevated bili -Patient denies recent abx use, blood BM's, and melena, monitor stool studies and C. diff PCR -S/P one dose of Cefepime in the ED, will continue with Cefepime and add Flagyl for anaerobic coverage -Initial lactate elevated at 3.2, repeat 2 hour down to 2.8 after 2L NSS in the ED -Continue LR at 1000 mL/hr x 2 bags overnight as she appears significantly dehydrated on exam -Follow infectious workup and tailor abx accordingly -Holding chemical DVT PPX until DIC labs are back; BL OLYA's for now -HH, low potassium diet for now with renal failure On 06/24 Now with anemia, patient does not appear to be actively bleeding today. Perhaps patient was hemoconcentrated on admission and lost some blood with the c difff infection. Her BMs have subsided today, and her WBC and procal are also improving. Consulted GI: appreciatye input. DIarrhea has returned. will closely monitor. (2) Colitis: Plan: -Noted on CT of the abd/pelvis wo con today -Patient has been experiencing mild lower abd pain -Last BM was on 06/14, denies bloody BM's or melena -No recent abx use -Follow stool studies and C. diff PCR -Continue Cefepime and flagyl for now (3) Renal failure: Plan: -Cr at 1.85 today, baseline is near 0.8 -Likely due to severe dehydration and severe sepsis -No signs of obstruction on CT, no UTI -Normally uses BID Celebrex; hold for now -Will place hunter cath on admission, patient is ok with this for now -Continue light IV hydration, monitor intake and output q6h overnight -Continue IV hydration overnight, avoid nephrotoxic agents -Monitor daily renal function; Nephrology consult for worsening renal function (4) Thrombocytopenia: Plan: -Platelets at 119 today -Multiple possible etiologies including sepsis, tick borne illness, and possible Cirrhosis on CT of the abd/pelvis today -AST/ALT WNL today -No signs of active bleeding -Will continue to follow DIC labs and infectious workup (5) Elevated INR: Plan: -INR elevated at 1.5 today -APTT and PT are also elevated -Patient without signs of bleeding, has been stable since her fluid resuscitation in the ED -Noted to have 2+ urine bilirubin as well -Patient is not on medication to cause these findings, could be related to her sepsis -Will obtain STAT D-dimer, LDH, haptoglobin, fibrinogen, peripheral smear to further evaluate for possible DIC -Monitor daily INR for now (6) Hypocalcemia: Plan: -Ionized calcium at 0.69 today with calcium of 7.7, and albumin of 2.3 -Likely multifactorial including poor oral intake, low albumin, and yearly Zolendronic acid infusions (last was in December) -Will obtain PTH and phos level on admission -Corrected calcium is 9.1 -Will start BID PO calcium carbonate tonight -Monitor am ionized calcium level (7) Elevated bilirubin: Plan: -Initial Bili at 1.1 with direct bili of 0.7 -AST and ALT WNL -Patient is without RUQ abdominal discomfort or signs of acute bili or bile duct abnormalities on CT today -Likely due to dehydration -Continue IV hydration, monitor daily CMP; would get RUQ US if she starts to develop RUQ pain (8) Hypomagnesemia: Plan: -Noted to be 1.5 today -Is a chronic problem likely exacerbated by recent poor oral intake -S/P 2 doses of 1gm IV mag-sulfate in the ED -Will hold additional mag overnight due to renal failure, can continue PO home mag tomorrow (9) Hypoglycemia: Plan: -Initial hypoglycemic at 65 in the ED -Likely due to very poor oral intake and severe sepsis -Currently stable (10) HFrEF (heart failure with reduced ejection fraction): Plan: -Currently dehydrated -LVEF of 40-45% -Continue to monitor volume status while on light IV hydration overnight (11) Hypothyroidism: Plan: -Continue levothyroxine (12) Hypertension: Plan: -Currently stable -Can continue metoprolol tomorrow as long as she remains hemodynamically stable (13) GERD (gastroesophageal reflux disease): Plan: -Continue PPI Admission and Anticipated Discharge Date Admission Date: June 17, 2023 Subjective Patient reports no new symptoms. Review of Systems Review of Systems: All systems reviewed & are unremarkable except as noted in HPI & below Physical Exam Physical Exam: General-awake HEENT-head atraumatic and normocephalic, pupils equal and reactive to light. Neck-no lymphadenopathy or thyromegaly, trachea midline Chest-clear to auscultation anteriorly. No audible wheezing or rhonchi i Cardiac-regular rate and rhythm, normal S1 and S2 Abdomen-normal bowel sounds, no hepatosplenomegaly. Bowel sounds are active. No distention Extremities-no edema Results & Data Results & Data Vital Signs (Past 12 Hours) Vital Signs Temp Pulse Pulse Resp BP Pulse Ox O2 Del Method 06/24/23 23:00 94 H 06/24/23 20:00 36.5 C 92 H 18 152/76 H 96 Room Air 06/24/23 16:00 92 H 134/82 06/24/23 16:01 36.7 C 92 H 18 170/88 H 97 Room Air 06/24/23 15:33 56 L 06/24/23 12:19 36.8 C 87 18 159/83 H 98 Room Air PG Care Time/CCT Total # of Minutes Spent Total Time Spent with Patient: Total time spent is greater than 50% in coordination of care (as documented) at patient's floor/unit and/or counseling patient: Coding Level of Care Code 56203 SUB INP/OBS CARE 2/35MIN Diagnoses Severe sepsis A41.9; R65.20 Colitis K52.9 Renal failure N19 Thrombocytopenia D69.6 Elevated INR R79.1 Hypocalcemia E83.51 Elevated bilirubin R17 Hypomagnesemia E83.42 Hypoglycemia E16.2 HFrEF (heart failure with reduced ejection fraction) I50.20 Hypothyroidism E03.9 Hypertension I10 GERD (gastroesophageal reflux disease) K21.9
[2023-06-25] MEDS: BUTT PASTE (ZINC OXIDE 16%) 171 APPLN/57 GM JAR EXT PRN ×2 (02:53→06:47)
[2023-06-25] MEDS: CHERRY SYRUP 5 ML UDP PO SCH ×4 (06:13→22:58)
[2023-06-25] MEDS: LEVOTHYROXINE SODIUM 75 MCG TABLET PO SCH (06:13)
[2023-06-25] MEDS: VANCOMYCIN HCL 250 MG/5 ML SOLN PO SCH ×4 (06:14→22:58)
[2023-06-25 07:05] LABS: Albumin Level 2.1 gm/dl (3.4-5.0); BUN Creatinine Ratio 28.8 (10-20); Bilirubin Direct 0.3 mg/dl (0-0.2); Bilirubin,Total 0.8 mg/dl (0.2-1.0); C Reactive Protein 1.55 mg/dl (0-0.5); Calcium 7.7 mg/dl (8.6-10.3); Creatinine Clr Calc Pharmacy 86.3 ml/min; Est GFR (African American) 111.4 ml/min; Est GFR (Non-African American) 96.1 ml/min; Potassium 3.7 mmol/L (3.5-5.1); Total Protein 4.3 gm/dl (6.0-8.3)
[2023-06-25 07:08] LABS: Hematocrit (blood only) 26.7 % (37.0-47.0); Hemoglobin 9.1 g/dl (12.0-16.0); Mean Corpuscular Hemoglobin 33.6 pg (25.0-34.0); Mean Corpuscular Hgb Conc 34.1 g/dL (32.0-36.0); Mean Corpuscular Volume 98.5 fL (80.0-100.0); Platelet Count 71 K/uL (130-400); RDW Coefficient of Variation 17.5 % (11.5-14.5); RDW Standard Deviation 62.1 fL (36.4-46.3); Red Blood Count 2.71 M/uL (4.20-5.40); White Blood Count 11.13 K/ul (4.8-10.8)
[2023-06-25] MEDS: carvediloL 6.25 MG TAB PO SCH ×2 (09:27→17:59)
[2023-06-25 11:48] LABS: PTT LA Screen 54 sec (<=40)
[2023-06-25 14:36] LABS: Lupus Hex Phase (Rflxdonotord) Positive (Negative)
--- NOTE | 2023-06-25 21:48 | Hospitalist Progress Note ---
Date of Service June 25, 2023 Assessment & Plan (1) Severe sepsis: Plan: -Admit to the PCU on tele -Currently stable after receiving her initial Sepsis fluid bolus and a dose of Cefepime in the ED -At this time the etiology of the patient's sepsis is likely her colitis as she is without other sources of infection on labs, imaging, and exam -Did speak with radiology regarding the hepatic cysts on CT today and her previous hx of liver abscesses, appreciate their help, they confirm that findings are consistent with hepatic cysts and not an abscess -Will obtain tick borne panels with her thrombocytopenia and elevated bili -Patient denies recent abx use, blood BM's, and melena, monitor stool studies and C. diff PCR -S/P one dose of Cefepime in the ED, will continue with Cefepime and add Flagyl for anaerobic coverage -Initial lactate elevated at 3.2, repeat 2 hour down to 2.8 after 2L NSS in the ED -Continue LR at 1000 mL/hr x 2 bags overnight as she appears significantly dehydrated on exam -Follow infectious workup and tailor abx accordingly -Holding chemical DVT PPX until DIC labs are back; BL OLYA's for now -HH, low potassium diet for now with renal failure On 06/24 Now with anemia, patient does not appear to be actively bleeding today. Perhaps patient was hemoconcentrated on admission and lost some blood with the c difff infection. Her BMs have subsided today, and her WBC and procal are also improving. Consulted GI: appreciatye input. DIarrhea has returned. will closely monitor. On 06/25 Stool appear to be more formed, Infllammatory markers are improving. Patient tolerating antibiotics, will continue for total of 14 days given her severity and slow improvement. Despite being toxin negative, will treat given her diarrhea and symptoms. Patient was treated earlier in the hospital stay for hepatic encephalopathy, may require lacutlose at discharge for goal of 2 BM per day. Currently have 3 BMs, lactulose on hold. Unsure cause of liver failure. (2) Colitis: Plan: -Noted on CT of the abd/pelvis wo con today -Patient has been experiencing mild lower abd pain -Last BM was on 06/14, denies bloody BM's or melena -No recent abx use -C. diff colitis as above. On vancomycin. (3) Renal failure: Plan: -Cr at 1.85 today, baseline is near 0.8 -Likely due to severe dehydration and severe sepsis -No signs of obstruction on CT, no UTI -Normally uses BID Celebrex; hold for now -Will place hunter cath on admission, patient is ok with this for now -Continue light IV hydration, monitor intake and output q6h overnight -Continue IV hydration overnight, avoid nephrotoxic agents -Monitor daily renal function; Nephrology consult for worsening renal function Resolved (4) Thrombocytopenia: Plan: -Platelets at 119 today -Multiple possible etiologies including sepsis, tick borne illness, and possible Cirrhosis on CT of the abd/pelvis today -AST/ALT WNL today -No signs of active bleeding -Will continue to follow DIC labs and infectious workup (5) Elevated INR: Plan: -INR elevated at 1.5 today -APTT and PT are also elevated -Patient without signs of bleeding, has been stable since her fluid resuscitation in the ED -Noted to have 2+ urine bilirubin as well -Patient is not on medication to cause these findings, could be related to her sepsis -Will obtain STAT D-dimer, LDH, haptoglobin, fibrinogen, peripheral smear to further evaluate for possible DIC -Monitor daily INR for now Received vitamin k for anemia on 06/24 (6) Hypocalcemia: Plan: -Ionized calcium at 0.69 today with calcium of 7.7, and albumin of 2.3 -Likely multifactorial including poor oral intake, low albumin, and yearly Zolendronic acid infusions (last was in December) -Will obtain PTH and phos level on admission -Corrected calcium is 9.1 - BID PO calcium carbonate improved (7) Elevated bilirubin: Plan: -Initial Bili at 1.1 with direct bili of 0.7 -AST and ALT WNL -Patient is without RUQ abdominal discomfort or signs of acute bili or bile duct abnormalities on CT today -Likely due to dehydration -Continue IV hydration, monitor daily CMP; would get RUQ US if she starts to develop RUQ pain (8) Hypomagnesemia: Plan: -Noted to be 1.5 today -Is a chronic problem likely exacerbated by recent poor oral intake -S/P 2 doses of 1gm IV mag-sulfate in the ED -Will hold additional mag overnight due to renal failure, can continue PO home mag tomorrow (9) Hypoglycemia: Plan: -Initial hypoglycemic at 65 in the ED -Likely due to very poor oral intake and severe sepsis -Currently stable (10) HFrEF (heart failure with reduced ejection fraction): Plan: -Currently dehydrated -LVEF of 40-45% -Continue to monitor volume status while on light IV hydration overnight (11) Hypothyroidism: Plan: -Continue levothyroxine (12) Hypertension: Plan: -Currently stable -Can continue metoprolol tomorrow as long as she remains hemodynamically stable (13) GERD (gastroesophageal reflux disease): Plan: -Continue PPI Admission and Anticipated Discharge Date Admission Date: June 17, 2023 Subjective Patient reports feeling much better today. Stools appear more formed. Review of Systems Review of Systems: All systems reviewed & are unremarkable except as noted in HPI & below Physical Exam Physical Exam: General-awake HEENT-head atraumatic and normocephalic, pupils equal and reactive to light. Neck-no lymphadenopathy or thyromegaly, trachea midline Chest-clear to auscultation anteriorly. No audible wheezing or rhonchi i Cardiac-regular rate and rhythm, normal S1 and S2 Abdomen-normal bowel sounds, no hepatosplenomegaly. Bowel sounds are active. No distention Extremities-no edema Results & Data Results & Data Vital Signs (Past 12 Hours) Vital Signs Temp Pulse Pulse Resp BP BP Pulse Ox 06/25/23 19:00 36.5 C 90 16 139/77 98 06/25/23 16:13 93 H 06/25/23 15:30 37 C 92 H 16 135/77 99 06/25/23 11:40 36.7 C 89 16 149/78 H 99 O2 Del Method 06/25/23 19:00 Room Air 06/25/23 16:13 06/25/23 15:30 Room Air 06/25/23 11:40 Room Air PG Care Time/CCT Total # of Minutes Spent Total Time Spent with Patient: Total time spent is greater than 50% in coordination of care (as documented) at patient's floor/unit and/or counseling patient: Coding Level of Care Code 67398 SUB INP/OBS CARE 3/50MIN Diagnoses Severe sepsis A41.9; R65.20 Colitis K52.9 Renal failure N19 Thrombocytopenia D69.6 Elevated INR R79.1 Hypocalcemia E83.51 Elevated bilirubin R17 Hypomagnesemia E83.42 Hypoglycemia E16.2 HFrEF (heart failure with reduced ejection fraction) I50.20 Hypothyroidism E03.9 Hypertension I10 GERD (gastroesophageal reflux disease) K21.9
[2023-06-25] MEDS: ACETAMINOPHEN 325 MG TAB PO PRN (22:54)
[2023-06-26 00:47] LABS: Alpha 1 Antitrypsin 173 mg/dL (83-199); Anti Mitochondrial Antibody NEGATIVE (NEGATIVE); Anti Nuclear Antibody Screen NEGATIVE (NEGATIVE); Ceruloplasmin 17 mg/dL (18-53); Smooth Muscle Antibody NEGATIVE (NEGATIVE); Transglutaminase, Tissue IgA <1.0 U/mL
[2023-06-26] MEDS: CHERRY SYRUP 5 ML UDP PO SCH ×4 (05:08→23:37)
[2023-06-26] MEDS: VANCOMYCIN HCL 250 MG/5 ML SOLN PO SCH ×4 (05:08→23:37)
[2023-06-26] MEDS: LEVOTHYROXINE SODIUM 75 MCG TABLET PO SCH (05:08)
[2023-06-26 07:03] LABS: Hematocrit (blood only) 24.7 % (37.0-47.0); Hemoglobin 8.5 g/dl (12.0-16.0); Mean Corpuscular Hemoglobin 33.9 pg (25.0-34.0); Mean Corpuscular Hgb Conc 34.4 g/dL (32.0-36.0); Mean Corpuscular Volume 98.4 fL (80.0-100.0); Mean Platelet Volume 12.8 fL (9.4-12.4); Platelet Count 77 K/uL (130-400); RDW Coefficient of Variation 18.2 % (11.5-14.5); RDW Standard Deviation 63.7 fL (36.4-46.3); Red Blood Count 2.51 M/uL (4.20-5.40); White Blood Count 8.32 K/ul (4.8-10.8)
[2023-06-26 07:23] LABS: Calcium 7.5 mg/dl (8.6-10.3); Est GFR (African American) 121.5 ml/min; Est GFR (Non-African American) 104.8 ml/min
[2023-06-26] MEDS: carvediloL 6.25 MG TAB PO SCH ×2 (07:39→16:45)
[2023-06-26] MEDS ORDERED: MAGNESIUM SULFATE / D5W 1 GM/100 ML BAG IV ONE (09:27)
--- NOTE | 2023-06-26 09:33 | Hospitalist Progress Note ---
Date of Service June 26, 2023 Assessment & Plan (1) Severe sepsis: Plan: - sepsis resolved, source of sepsis felt possibly to be C. difficile - previous provider discussion with radiology regarding the hepatic cysts on CT today and her previous hx of liver abscesses, appreciate their help, they confirm that findings are consistent with hepatic cysts and not an abscess - negative Lyme testing - patient on oral vancomycin completed 14-day course other antibiotics have been discontinued. (2) Colitis: Plan: -Noted on CT of the abd/pelvis -C. diff colitis On vancomycin. (3) Renal failure: Plan: acute kidney injury with chronic kidney disease stage III -Normally uses BID Celebrex; hold -Will place hunter cath on admission, Resolved (4) Hypocalcemia: Plan: -Ionized calcium at 0.69 today with calcium of 7.7, and albumin of 2.3 -Likely multifactorial including poor oral intake, low albumin, and yearly Zolendronic acid infusions (last was in December) -Corrected calcium is 9.1 - BID PO calcium carbonate improved (5) HFrEF (heart failure with reduced ejection fraction): Plan: - hemodynamically stable at this time -LVEF of 40-45% - (6) Hypothyroidism: Plan: -Continue levothyroxine Admission and Anticipated Discharge Date Admission Date: June 17, 2023 Subjective pt with only complaints of diarrhea, need tylenol at night for foot and leg pain Physical Exam Physical Exam: awake and alert appropriate. Lungs are clear heart is regular Results & Data Results & Data Vital Signs (Past 12 Hours) Vital Signs Temp Pulse Pulse Resp BP Pulse Ox O2 Del Method 06/26/23 07:34 97.0 F L 88 20 119/73 99 Room Air 06/26/23 07:20 Room Air 06/26/23 03:00 97.5 F L 83 16 126/70 98 Room Air 06/25/23 22:05 94 H 06/25/23 23:00 98.1 F 84 14 129/77 98 Room Air Laboratory Results reviewed CBC reviewed chemistry ordered potassium replacement and additional magnesium replacement with magnesium checked in the morning of 06/27 PG Care Time/CCT Total # of Minutes Spent Total Time Spent with Patient: Total time spent is greater than 50% in coordination of care (as documented) at patient's floor/unit and/or counseling patient: Coding Level of Care Code 50890 SUB INP/OBS CARE 2/35MIN Diagnoses Severe sepsis A41.9; R65.20 Colitis K52.9 Renal failure N19 Hypocalcemia E83.51 HFrEF (heart failure with reduced ejection fraction) I50.20 Hypothyroidism E03.9
[2023-06-26] MEDS: POTASSIUM CHLORIDE / WTR 10 MEQ/100 ML PLCT IV SCH ×3 (09:43→12:08)
[2023-06-26] MEDS: POTASSIUM CHLORIDE CRTAB 20 MEQ TABCR PO SCH ×2 (09:47→20:31)
[2023-06-26] MEDS: ONDANSETRON INJ 2 MG/ML 2 ML VIAL IV PRN (15:36)
[2023-06-26] MEDS: ALUMINUM/MAGNESIUM SUSP 30 ML UDC PO PRN (20:31)
[2023-06-26] MEDS: ACETAMINOPHEN 325 MG TAB PO PRN (21:49)
[2023-06-26] MEDS: CHOLESTYRAMINE LIGHT 4 GM PKT PO SCH ×2 (21:50→22:07)
[2023-06-26] MEDS: BUTT PASTE (ZINC OXIDE 16%) 171 APPLN/57 GM JAR EXT PRN (21:52)
[2023-06-27] MEDS: VANCOMYCIN HCL 250 MG/5 ML SOLN PO SCH ×4 (05:40→23:45)
[2023-06-27] MEDS: LEVOTHYROXINE SODIUM 75 MCG TABLET PO SCH (05:40)
[2023-06-27] MEDS: CHERRY SYRUP 5 ML UDP PO SCH ×4 (05:40→23:45)
[2023-06-27 07:36] LABS: BUN Creatinine Ratio 22.2 (10-20); Calcium 7.4 mg/dl (8.6-10.3); Creatinine Clr Calc Pharmacy 121.6 ml/min; Est GFR (African American) 125.7 ml/min; Est GFR (Non-African American) 108.5 ml/min; Magnesium 1.4 mg/dl (1.7-2.4); Potassium 3.7 mmol/L (3.5-5.1)
[2023-06-27] MEDS: POTASSIUM CHLORIDE CRTAB 20 MEQ TABCR PO SCH (08:24)
[2023-06-27] MEDS: carvediloL 6.25 MG TAB PO SCH ×2 (08:24→17:02)
[2023-06-27] MEDS: CHOLESTYRAMINE LIGHT 4 GM PKT PO SCH ×2 (09:46→21:25)
[2023-06-27] MEDS: MAGNESIUM SULFATE / D5W 1 GM/100 ML BAG IV SCH ×3 (09:48→14:01)
[2023-06-27] MEDS: ONDANSETRON INJ 2 MG/ML 2 ML VIAL IV PRN (09:50)
--- OUTSIDE RECORDS SUMMARY | 2023-06-27 11:59 | External Medical Summary | Summary of Care ---
Author Name Unknown Organization [facility] Address [address] [place] [address] Phone [phone] Care Team Providers Care Manager Roofing Name Role Phone ElijahbalwinderTayla Wanda Primary Care Provider [phone]- [phone] Reason for Visit * Reason Onset Date Comments Follow Up 03/18/2023 Encounter Details Date Type Department Care Team Description 03/18/2023 Telephone Gastroenterology, [facility] [address] [place] [address] Mis Ellison MD [address] [place] [address] Follow Up Allergies Active Allergy Reactions Severity Noted Date Comments Amoxicillin 07/24/2021 Amoxicillin-Pot Clavulanate 07/02/20 12 itching Bacitracin 07/23/2021 Benzalkonium Chloride 07/23/2021 Ciprofloxacin Rash Medium 07/12/2021 Clarithromycin 11/16/2003 Itching and hives Gramicidin 07/23/2021 Hydroxychloroquine High 2022 Other reaction(s): itching rash Ketorolac Tromethamine 11/16/2003 itching Etodolac Nausea/vomiting 10/01/2010 Meclofenamate Sodium 05/21/2005 Rash Meloxicam Nausea/vomiting 04/20/2010 Meperidine 11/16/2003 Hives Metronidazole Rash Medium 07/12/2021 Montelukast Edema airway High 07/21/2015 Can take brand name singular just not generic Neomycin 07/23/2021 Nirmatrelvir-Ritonavir High 2022 Other reaction(s): rash itching Nsaids 11/16/2003 anaprox, naprosyn, diclofenac, coltain, lodine, indocin, relafen, daypro feldane clinoril trilisate, Polymyxin B 07/23/2021 Quinine 07/24/2021 Quinine Sulfate Dihydrate 11/16/2003 Itching and hives Sulfa Antibiotics 11/16/2003 Itching and hives Sulfanilamide 07/24/2021 Tobramycin Sulfate 12/16/2008 documented as of this encounter (statuses as of 03/19/2023) Medications Medication Sig Dispensed Refills Start Date End Date Status SINGULAIR 10 MG PO TABS daily 0 12/16/2008 Active PREVACID 15 MG PO CPDR one tab by mouth daily 0 Active COLACE 100 MG PO CAPS as needed 0 Act toma VENTOLIN HFA 108 (90 BASE) MCG/ACT inhaler As needed 0 11/24/2014 Act toma Ipratropium [place] 0.03 % nasal spray As needed 0 09/23/2014 Active folic acid 1 MG Tablet Take 1 Tablet by mouth in the morning. 0 Active Acetaminophen ER 650 MG Oral Tablet Extended Release Take 1 Tablet by mouth every 8 hours as needed. 0 Active Atorvastatin Calcium 40 MG Oral Tablet (Lipitor) Take 1 Tablet by mouth in the morning. 0 Active Aspirin Low Dose 81 MG Oral Tablet Delayed Release Take 1 Tablet by mouth in the morning. In the morning.. 0 06/20/2022 Active Calcium Carb-Cholecalciferol 600-10 MG-MCG Oral Tablet Take by mouth 1 Tablet 2 times a day . 0 06/20/2022 Active Celecoxib 200 MG Oral Capsule (CeleBREX) Take 1 Capsule by mouth in the morning and 1 Capsule before bedtime. 0 06/20/2022 Active Levothyroxine Sodium 75 MCG Oral Tablet (Levoxyl) Take 1 Tablet by mouth in the morning. In the morning.. 0 06/20/2022 Active MAGnesium-Oxide 400 (240 Mg) MG Oral Tablet Take 1 Tablet by mouth in the morning and 1 Tablet before bedtime. 0 06/20/2022 Active Metoprolol Succinate ER 25 MG Oral Tablet Extended Release 24 Hour (toPROL XL) TAKE THREE TABLETS BY MOUTH TWICE DAILY 0 06/24/2022 Active Nortriptyline HCl 10 MG Oral Capsule (Pamelor) Take 1 Capsule by mouth. In the morning. 0 06/20/2022 Active Nortriptyline HCl 25 MG Oral Capsule (Pamelor) Take 1 Capsule by mouth at bedtime. 0 06/24/2022 Active Potassium Chloride ER 10 MEQ Oral Tablet Extended Release Take 1 Tablet by mouth in the morning. In the morning.. 0 06/20/2022 Active Escitalopram Oxalate 20 MG Oral Tablet (Lexapro) Take 1 Tablet by mouth in the morning. In the morning.. 0 06/20/2022 Active Triamcinolone Acetonide 0.1 % External Ointment (Aristocort)Indication s:Rash and nonspecific skin eruption Apply 2x daily to rash on chest/arms/legs until resolved--see printed checkout sheet 454 g 0 06/26/2022 Active documented as of this encounter (statuses as of 03/19/2023) Active Problems Problem Noted Date Atherosclerosis of coronary artery 08/28 Gastroesophageal reflux disease 08/28/20 21 Ischemic cardiomyopathy 08/28/2021 HTN, goal below 140/90 07/07/2009 Overview: Modified per HTN Taxonomy. ADVANCE DIRECTIVE INFORMATION 12/26/2006 Overview: No, Advance Directive brochure offered , patient declined. DISC DIS [id number] 11/16/2003 GENERAL OSTEOARTHROSIS 11/16/2003 Hypothyroidism 11/16/2003 Hypopotassemia 11/16/2003 Irritable bowel syndrome 11/16/2003 GENERALIZED ANXIETY DIS 11/16/2003 Dyslipidemia, goal to be determined 10/30 documented as of this encounter (statuses as of 03/19/2023) Resolved Problems Problem Noted Date Resolved Date Fungemia 08/28/2021 09/05/2021 Gallbladder perforation 08/28/2021 09/05/19 22 Hypoglycemia 08/28/2021 09/05/2021 Septic shock 08/25/2021 09/05/2021 Encounter for long-term (current) use of medicat ions 12/23/2011 08/28/2021 Overview: ICD-10 update of inactive term Pain in joint involving lower leg 04/02/2007 08/28/2021 Myalgia and myositis 12/06/2003 08/28/2021 BENIGN HYPERTENSION 11/16/2003 07/07/2009 Overview: Modified per HTN Taxonomy. Chronic sinusitis 11/16/2003 08/28/2021 documented as of this encounter (statuses as of 03/19/2023) Immunizations Name Administration Dates Next Due COVID-19 mRNA, LNP-s, No Pre serve, 2-Dose Series (Pfizer) 07/31/2021 Pneumococcal Conjugate Vacc, 13 Valent (Prevnar) 06/15/2015 Seasonal Influenza, Quadriva lent Hd (Fluzone Hd) 09/06/2021(Deferred: Contraindication - Pt states she already had her flu shot this year) Seasonal Influenza, Split, I IV3, With Preserve, Inj 06/01/2015 documented as of this encounter Social History Tobacco Use Types Packs/Day Years Used Date Smoking Tobacco: Never Smokeless Tobacco: Never Alcohol Use Standard Drinks/Week Comments No 0 (1 standard drink = 0.6 oz pur e alcohol) Sex Assigned at Date Recorded Not on file Job Start Date Occupation Industry Not on file Not on file Not on file documented as of this encounter Functional Status Functional Status Response Date of Assess ment Do you have serious difficul ty walking or climbing stairs? (5 years old or older) Yes 08/26/2021 documented as of this encounter Miscellaneous Notes * Telephone Encounter - Elisa Lyles LPN - 03/18/2023 2:33 PM EDT Pt calling and asking advice regarding diarrhea. Pt has not been seen in over a year. Unable to give her advice, asked her to contact her pcp. Transferred to scheduling for an appt. documented in this encounter Plan of Treatment Upcoming Encounters Date Type Specialty Care Team Description 04/24/2023 Office Visit Gastroenterology Manny Yost, VICTOR MANUEL [address] [place] [address] 12/29/2023 Office Visit Dermatology Tabitha Urban PA-C [address] [place] [address] [place] [address] Health Maintenance Due Date Last Done Comments DXA Scan 1952 Depression Screening, Annual for Pts 12 and Over 1964 Albumin/Creatinine Ratio 1970 DTaP,Tdap,and Td Vaccines (1 - Tdap) 1971 Cologuard 1997 Fecal Occult Blood Test 1997 Sigmoidoscopy 1997 Mammogram 05/27/2014 05/27/2013, 05/02, 02/20/2012, Additional history exists Zoster Vaccines (2 of 3) 10/27/2014 09/01/2014 Pneumococcal Vaccine: 65+ Years (2 - PPSV23 or PCV20) 08/10/2015 06/15/2015 TSH 08/28/2022 08/28/2021 GFR 11/16/2022 11/16/2021, 01/2022, 09/05/2021, Additional history exists Influenza Vaccine (FLU shot) (#1) 2023 05/24/2020, 06/17/2019, 06/17/2019, Additional history exists Colonoscopy 05/31/2032 05/31/2022 Colorectal Cancer Screening 05/31/2032 COVID-19 Vaccine Completed 07/01/2022, 09/2021, 07/31/2021, Additional history exists GARDASIL-HPV IMMUNIZATION SERIES Aged Out No longer eligible based on patient's age to complete this topic Hepatitis B Aged Out No longer eligi ble based on patient's age to complete this topic MENINGOCOCCAL (MENACTRA/MENVEO) Aged Out No longer eligible based on patient's age to complete this topic documented as of this encounter Medical Devices Implanted Type Area Corporate Tax Preparer Device Identifier Shelf Expiration Date Model / Serial / Lot Lens Intraoc 20.5 - [id number] - [id number] Implanted:Qty : 1 on 03/27/2020 by Jos Gomez MD at OR [facility] [employer] 08/31/2024 [id number] / [id number] 2 / Lens Intraoc 20.5 - [id number] - [id number] Implanted:Qty : 1 on 04/04/2020 by Jos Gomez MD at OR [facility] Left: Eye [employer] 10/01/2024 [id number] / [id number] / [id number] Stent Axios [id number] - [id number] Implanted:Qty : 1 on 07/23/2021 by Mis Ellison MD at OR [facility] Abdomen [employer] : ENDOSCOPY 05/16/2023 [id number] / / Cath Rosachi Snyderseamus [id number] - [id number] Implanted:Qty : 1 on 08/25/2021 at [facility] [employer] : DIAGNOSTIC INTERVENTION [id number] 03/23/2024 [id number] / / [id number] Cath Pascual Bazzi 10.2f [id number] - [id number] Implanted:Qty : 1 on 09/21/2021 at [facility] [employer] : DIAGNOSTIC INTERVENTION [id number] 06/26/2024 [id number] / / [id number] Stent Trapezoid 3.0cm 1089 - [id number] Implanted:Qty : 1 on 09/26/2021 by Mis Ellison MD at [facility] [employer] : ENDOSCOPY 02/06/2022 [id number] / / [id number] documented as of this encounter Advance Directives Latest Code Status on File Code Status Date Activated Date Inactivated Comments Full Code 08/25/2021 5:33 AM 09/06/2021 5:33 PM This order reflects the patients wishes and were consensually agreed upon. Question Answer Comments Discussion of Advance Directives occurred with: Family Care Teams Manager Roofing Relationship Specialty Start Date End Date Tayla Kent DO [address] [facility] [address] PCP - General Family Medicine 03/15/20 documented as of this encounter
--- OUTSIDE RECORDS SUMMARY | 2023-06-27 11:59 | External Medical Summary | Summary of Care ---
Author Name Unknown Organization [facility] Address [address] [place] [facility] [place] [place] [address] Phone [phone] Care Team Providers Care Driver Messenger Name Role Phone ElijahbalwinderTayla Wanda Primary Care Provider +1- [phone] Reason for Visit * Reason Onset Date Comments Appointment 06/24/2023 Encounter Details Date Type Department Care Team (Late st Contact Info) Description 06/24/2023 Telephone Gastroenterology, [facility] [address] [place] [address] Fransisca Woodward CRNP [address] [place] [address] Appointment Allergies Active Allergy Reactions Criticality Noted Date Comments Amoxicillin 07/24/2021 Amoxicillin-Pot Clavulanate [...] as of this encounter (statuses as of 06/24/2023) Medications Medication Sig Dispensed Refills Start Date End Date Status SINGULAIR 10 MG PO TABS daily 0 12/16/2008 Active PREVACID 15 MG PO CPDR one tab by mouth daily 0 Active COLACE 100 MG PO CAPS as needed 0 Act toma VENTOLIN HFA 108 (90 BASE) MCG/ACT inhaler As needed 0 11/24/2014 Act toma Ipratropium [place] 0.03 % nasal spray As needed 0 [...] as of this encounter (statuses as of 06/24/2023) Active Problems Problem Noted Date Diagnosed Date Atherosclerosis of coronary artery 08/28/2021 Gastroesophageal reflux disease 08/28/2021 Ischemic cardiomyopathy 08/28/2021 HTN, goal below 140/90 07/07/2009 Overview: Modified per HTN Taxonomy. ADVANCE DIRECTIVE INFORMATION 12/26/2006 Overview: No, Advance Directive brochure offered , patient declined. DISC DIS [id number]-ONOXOI 11/16/2003 GENERAL OSTEOARTHROSIS 11/16/2003 Hypothyroidism 11/16/2003 Hypopotassemia 11/16/2003 Irritable bowel syndrome 11/16/2003 GENERALIZED ANXIETY DIS 11/16/2003 Dyslipidemia, goal to be determined 11/16/2003 documented as of this encounter (statuses as of 06/24/2023) Resolved Problems Problem Noted Date Diagnosed Date Resolved Date Fungemia 08/28/2021 09/05/2021 Gallbladder perforation 08/28/2021/0 12/2021 Hypoglycemia 08/28/2021 09/05/2021 Septic shock 08/25/2021 09/05/2021 Encounter for long-term (cur rent) use of medications 12/23/2011 08/28/2021 Overview: ICD-10 update of inactive term Pain in joint involving lower leg 04/02/2007 08/28/2021 Myalgia and myositis 12/06/2003 021 BENIGN HYPERTENSION 11/16/2003 07/07/20 09 Overview: Modified per HTN Taxonomy. Chronic sinusitis 11/16/2003 08/28/2021 documented as of this encounter (statuses as of 06/24/2023) Immunizations Name Administration Dates Next Due COVID-19 [...] = 0.6 oz pur e alcohol) Sex and Gender Information Value Date Recorded Sex Assigned at Not on file Gender Identity Not on file Sexual Orientation Not on file Job Start Date Occupation Industry Not on file Not on file Not on file documented as of this encounter Functional Status Functional Status Response Date of Assess ment Do you have serious difficul ty walking or climbing stairs? (5 years old or older) Yes 08/26/2021 documented as of this encounter Miscellaneous Notes * Telephone Encounter - VICTOR MANUEL Woo - 06/24/2023 10:36 AM EDT Pt with findings of questionable cirrhosis on CT scan done at [facility]. Needs EUS w liver bx by Dr. Ellison once she is discharged. Pls assist w appt. VICTOR MANUEL Orr documented in this encounter Plan of Treatment Upcoming Encounters Date Type Department Care Team (Late st Contact Info) Description 12/29/2023 3:40 PM EDT Office Visit Dermatology [address] [place] [address] Tabitha Urban PA-C [address] [place] [address] [place] [address] Scheduled Orders Name Type Priority Associated Diagnoses Orde r Schedule US ENDOSCOPIC Medical Imaging Routine Abnormal CT of liver Ordered: 06/24/2023 Health Maintenance Due Date Last Done Comments DXA Scan 1952 Depression Screening 1964 Albumin/Creatinine Ratio 1970 DTaP,Tdap,and Td Vaccines (1 - Tdap) 1971 Cologuard 1997 Fecal Occult Blood Test 1997 Sigmoidoscopy 1997 Mammogram 05/27/2014 05/27/2013, 05/02, 02/20/2012, Additional history exists Zoster Vaccines (2 of 3) 10/27/2014 09/01/2014 Pneumococcal Vaccine: 65+ Years (2 - PPSV23 or PCV20) 08/10/2015 06/15/2015 TSH 08/28/2022 08/28/2021 GFR 11/16/2022 11/16/2021, 01/2022, 09/05/2021, Additional history exists COVID-19 Vaccine ( - 2022- season) 2023 07/01/2022, 03/01/2022, 07/31/2021, Additional history exists Influenza Vaccine (FLU shot) (#1) 2023 05/24/2020, 06/17/2019, 06/17/2019, Additional history exists Colonoscopy 05/31/2032 05/31/2022 Colorectal Cancer Screening 05/31/2032 GARDASIL-HPV IMMUNIZATION SERIES Aged Out No longer eligible based on patient's age to complete this topic Hepatitis B Aged Out No longer eligi ble based on patient's age to complete this topic MENINGOCOCCAL (MENACTRA/MENVEO) Aged Out No longer eligible based on patient's age to complete this topic documented as of this encounter Medical Devices Implanted Type Area Hydraulic Mechanic Device Identifier Shelf Expiration Date Model / Serial / Lot Lens Intraoc 20.5 - [id number] - [id number] Implanted:Qty : 1 on 03/27/2020 by Jos Gomez MD at OR [facility] [employer] 08/31/2024 [id number] / [id number] 2 / Lens Intraoc 20.5 - [id number] - [id number] Implanted:Qty : 1 on 04/04/2020 by Jos Gomez MD at [facility] Left: Eye [employer] 10/01/2024 [id number] / [id number] / [id number] Stent Axios [id number] - [id number] Implanted:Qty : 1 on 07/23/2021 by Mis Ellison MD at OR [facility] Abdomen [employer] : ENDOSCOPY 05/16/2023 [id number] / / Cath Jayjay [place] [id number] - [id number] Implanted:Qty : 1 on 08/25/2021 at [facility] [employer] : DIAGNOSTIC INTERVENTION [id number] 03/23/2024 [id number] / / [id number] Cath Pascual brynn 10.2f [id number] - [id number] Implanted:Qty : 1 on 09/21/2021 at [facility] [employer] : DIAGNOSTIC INTERVENTION [id number] 06/26/2024 [id number] / / [id number] Stent Trapezoid 3.0cm 1089 - [id number] Implanted:Qty : 1 on 09/26/2021 by Mis Ellison MD at OR [facility] [employer] : ENDOSCOPY 02/06/2022 [id number] / / [id number] documented as of this encounter Visit Diagnoses Diagnosis Abnormal CT of liver- Primary Nonspecific (abnormal) findings on radiological and other examination of biliary tract documented in this encounter Advance Directives Latest Code Status on File Code Status Date Activated Date Inactivated Comments Full Code 08/25/2021 5:33 AM 09/06/2021 5:33 PM This order reflects the patients wishes and were consensually agreed upon. Question Answer Comments Discussion of Advance Directives occurred with: Family Care Teams Driver Messenger Relationship Specialty Start Date End Date Tayla Kent DO [address] [address] PCP - General Family Medicine 03/15/20 documented as of this encounter
[2023-06-27] MEDS ORDERED: LOPERAMIDE HCL 2 MG CAP PO STA (16:15)
[2023-06-27] MEDS ORDERED: LIDOCAINE 5% 1 PATCH TD STA (16:15)
--- NOTE | 2023-06-27 16:23 | Hospitalist Progress Note ---
Date of Service June 27, 2023 Assessment & Plan (1) Severe sepsis: Plan: - sepsis resolved, source of sepsis felt possibly to be C. difficile - previous provider discussion with radiology regarding the hepatic cysts on CT today and her previous hx of liver abscesses, appreciate their help, they confirm that findings are consistent with hepatic cysts and not an abscess - negative Lyme testing - patient on oral vancomycin to complete 14-day course, other antibiotics have been discontinued. (2) Colitis: Plan: -Noted on CT of the abd/pelvis -C. diff colitis On vancomycin. diarrhea persists did not have help with cholestyramine we will use 1 dose Imodium in the afternoon of 06/27/2023 (3) Renal failure: Plan: acute kidney injury with chronic kidney disease stage III -Normally uses BID Celebrex; hold patient has back pain now without the Celebrex. Will place on scheduled Tylenol and use Lidoderm patch initiated 06/27/2023 -Will place hunter cath on admission, Resolved (4) Hypocalcemia: Plan: -Ionized calcium at 0.69 today with calcium of 7.7, and albumin of 2.3 -Likely multifactorial including poor oral intake, low albumin, and yearly Zolendronic acid infusions (last was in December) -Corrected calcium is 9.1 - BID PO calcium carbonate improved (5) HFrEF (heart failure with reduced ejection fraction): Plan: - hemodynamically stable at this time -LVEF of 40-45% - (6) Hypothyroidism: Plan: -Continue levothyroxine Admission and Anticipated Discharge Date Admission Date: June 17, 2023 Subjective patient was seen in the presence of her . She is complaining of back pain which is chronic for her but worse since she been lying in bed. She still has diarrhea and cholestyramine did not do much help for her she is looking forward to getting to rehab to get stronger and eventually get home Physical Exam Physical Exam: awake and alert appropriate. Lungs are clear heart is regular lower extremities are without radicular pain Results & Data Results & Data Vital Signs (Past 12 Hours) Vital Signs Temp Pulse Pulse Resp BP BP Pulse Ox 06/27/23 15:58 98.6 F 93 H 18 124/83 96 06/27/23 15:15 88 06/27/23 11:32 94 06/27/23 11:29 97.7 F 87 18 108/69 98 06/27/23 07:50 81 06/27/23 07:43 97.7 F 86 18 133/76 96 O2 Del Method 06/27/23 15:58 Room Air 06/27/23 15:15 06/27/23 11:32 06/27/23 11:29 Room Air 06/27/23 07:50 06/27/23 07:43 Room Air Laboratory Results reviewed chemistry augmented low magnesium PG Care Time/CCT Total # of Minutes Spent Total Time Spent with Patient: Total time spent is greater than 50% in coordination of care (as documented) at patient's floor/unit and/or counseling patient: Coding Level of Care Code 83444 SUB INP/OBS CARE 2/35MIN Diagnoses Severe sepsis A41.9; R65.20 Colitis K52.9 Renal failure N19 Hypocalcemia E83.51 HFrEF (heart failure with reduced ejection fraction) I50.20 Hypothyroidism E03.9
[2023-06-27] MEDS: ACETAMINOPHEN 500 MG TAB PO SCH (21:25)
[2023-06-28] MEDS: LEVOTHYROXINE SODIUM 75 MCG TABLET PO SCH (05:04)
[2023-06-28] MEDS: VANCOMYCIN HCL 250 MG/5 ML SOLN PO SCH ×4 (05:04→23:24)
[2023-06-28] MEDS: CHERRY SYRUP 5 ML UDP PO SCH ×4 (05:04→23:24)
[2023-06-28] MEDS: BUTT PASTE (ZINC OXIDE 16%) 171 APPLN/57 GM JAR EXT PRN (05:05)
[2023-06-28 07:58] LABS: BUN Creatinine Ratio 14.3 (10-20); Calcium 7.4 mg/dl (8.6-10.3); Creatinine Clr Calc Pharmacy 124.7 ml/min; Est GFR (African American) 126.9 ml/min; Est GFR (Non-African American) 109.5 ml/min; Potassium 3.8 mmol/L (3.5-5.1)
[2023-06-28] MEDS: ACETAMINOPHEN 500 MG TAB PO SCH ×3 (08:05→21:30)
[2023-06-28] MEDS: LIDOCAINE 5% 1 PATCH TD SCH (08:05)
[2023-06-28] MEDS: carvediloL 6.25 MG TAB PO SCH ×2 (08:06→17:38)
[2023-06-28] MEDS: CHOLESTYRAMINE LIGHT 4 GM PKT PO SCH ×2 (10:22→21:31)
[2023-06-28] MEDS: ALUMINUM/MAGNESIUM SUSP 30 ML UDC PO PRN (13:46)
--- NOTE | 2023-06-28 16:25 | Hospitalist Progress Note ---
Date of Service June 28, 2023 Assessment & Plan (1) Severe sepsis: Plan: - sepsis resolved, source of sepsis felt possibly to be C. difficile - previous provider discussion with radiology regarding the hepatic cysts on CT, her previous hx of liver abscesses, appreciate their help, they confirm that findings are consistent with hepatic cysts and not an abscess - negative Lyme testing - patient on oral vancomycin to complete 14-day course, other antibiotics have been discontinued. (2) Colitis: Plan: -Noted on CT of the abd/pelvis -C. diff colitis On vancomycin. diarrhea persists did not have help with cholestyramine, improved with very sparing doses of Imodium only one dose a day or less (3) Renal failure: Plan: acute kidney injury with chronic kidney disease stage III -Normally uses BID Celebrex; hold patient has back pain now without the Celebrex. Will place on scheduled Tylenol and use Lidoderm patch initiated 06/27/2023 -Will place hunter cath on admission, Resolved (4) Hypocalcemia: Plan: -Ionized calcium at 0.69 today with calcium of 7.7, and albumin of 2.3 -Likely multifactorial including poor oral intake, low albumin, and yearly Zolendronic acid infusions (last was in December) -Corrected calcium is 9.1 - BID PO calcium carbonate improved (5) HFrEF (heart failure with reduced ejection fraction): Plan: - hemodynamically stable at this time -LVEF of 40-45% - (6) Hypothyroidism: Plan: -Continue levothyroxine Admission and Anticipated Discharge Date Admission Date: June 17, 2023 Subjective patient was seen in the presence of her on 06/28/2023. back pain is improved with Lidoderm. diarrhea has responded to Imodium She is looking forward to getting to rehab to get stronger and eventually get home Physical Exam Physical Exam: awake and alert appropriate. Lungs are clear heart is regular lower extremities are without radicular pain Results & Data Results & Data Vital Signs (Past 12 Hours) Vital Signs Temp Pulse Pulse Resp BP BP Pulse Ox 06/28/23 15:15 97.2 F L 86 20 125/86 96 06/28/23 11:16 97.5 F L 89 20 133/79 101 H 06/28/23 09:00 74 06/28/23 07:59 97.2 F L 86 21 145/76 H 98 O2 Del Method 06/28/23 15:15 Room Air 06/28/23 11:16 Room Air 06/28/23 09:00 06/28/23 07:59 Room Air Laboratory Results reviewed chemistry updated at bedside PG Care Time/CCT Total # of Minutes Spent Total Time Spent with Patient: Total time spent is greater than 50% in coordination of care (as documented) at patient's floor/unit and/or counseling patient: Coding Level of Care Code 19524 SUB INP/OBS CARE 09/25MIN Diagnoses Severe sepsis A41.9; R65.20 Colitis K52.9 Renal failure N19 Hypocalcemia E83.51 HFrEF (heart failure with reduced ejection fraction) I50.20 Hypothyroidism E03.9
[2023-06-28] MEDS: LOPERAMIDE HCL 2 MG CAP PO PRN (17:41)
[2023-06-29] MEDS: CHERRY SYRUP 5 ML UDP PO SCH ×4 (05:58→23:52)
[2023-06-29] MEDS: VANCOMYCIN HCL 250 MG/5 ML SOLN PO SCH ×4 (05:58→23:52)
[2023-06-29] MEDS: LEVOTHYROXINE SODIUM 75 MCG TABLET PO SCH (05:59)
[2023-06-29 07:37] LABS: BUN Creatinine Ratio 10.5 (10-20); Calcium 7.5 mg/dl (8.6-10.3); Est GFR (African American) 123.5 ml/min; Est GFR (Non-African American) 106.6 ml/min; Potassium 3.7 mmol/L (3.5-5.1)
[2023-06-29] MEDS: CARBOHYDRATES FOR HYPOGLYCEMIA PO PRN ×3 (07:55→08:20)
[2023-06-29] MEDS: LIDOCAINE 5% 1 PATCH TD SCH ×2 (08:14→21:17)
[2023-06-29] MEDS: ACETAMINOPHEN 500 MG TAB PO SCH ×3 (08:14→21:21)
[2023-06-29] MEDS: carvediloL 6.25 MG TAB PO SCH ×2 (08:15→17:37)
[2023-06-29] MEDS: DEXTROSE 50% 50 ML SYRINGE IV PRN (08:39)
[2023-06-29] MEDS: ALUMINUM/MAGNESIUM SUSP 30 ML UDC PO PRN (09:59)
[2023-06-29] MEDS: CHOLESTYRAMINE LIGHT 4 GM PKT PO SCH (10:46)
[2023-06-29] MEDS: LOPERAMIDE HCL 2 MG CAP PO PRN (11:14)
[2023-06-29] MEDS: LOPERAMIDE HCL 2 MG CAP PO SCH (11:15)
--- NOTE | 2023-06-29 13:43 | Hospitalist Progress Note ---
Date of Service June 29, 2023 Assessment & Plan (1) Severe sepsis: Plan: - sepsis resolved, source of sepsis felt possibly to be C. difficile - previous provider discussion with radiology regarding the hepatic cysts on CT, her previous hx of liver abscesses, appreciate their help, they confirm that findings are consistent with hepatic cysts and not an abscess - negative Lyme testing - patient on oral vancomycin to complete 14-day course, other antibiotics have been discontinued. (2) Colitis: Plan: -Noted on CT of the abd/pelvis- improving -C. diff colitis On vancomycin. diarrhea persists did not have help with cholestyramine, improved with very sparing doses of Imodium only one dose a day or less (3) Renal failure: Plan: acute kidney injury with chronic kidney disease stage III-Resolved -Normally uses BID Celebrex; hold patient has back pain now without the Celebrex. Will place on scheduled Tylenol and use Lidoderm patch initiated 06/27/2023 -Will place hunter cath on admission, (4) Hypocalcemia: Plan: -Ionized calcium at 0.69 today with calcium of 7.7, and albumin of 2.3 -Likely multifactorial including poor oral intake, low albumin, and yearly Zolendronic acid infusions (last was in December) -Corrected calcium is 9.1 - BID PO calcium carbonate improved (5) HFrEF (heart failure with reduced ejection fraction): Plan: - hemodynamically stable at this time -LVEF of 40-45% -coreg 6.25 bid (6) Hypothyroidism: Plan: -Continue levothyroxine Plan awaiting approval for rehab placement Admission and Anticipated Discharge Date Admission Date: June 17, 2023 Subjective patient was seen in the presence of her and son on 06/29/2023 this a.m. seems to have unprovoked hypoglycemia may be because she denied significant food last night but is not on any glucose lowering agents we will watch cautiously back pain is improved with Lidoderm. diarrhea has responded to Imodium She is looking forward to getting to rehab to get stronger and eventually get home Results & Data Results & Data Vital Signs (Past 12 Hours) Vital Signs Temp Pulse Pulse Resp BP BP Pulse Ox 06/29/23 11:29 98.4 F 87 20 130/76 93 06/29/23 08:09 97.5 F L 87 19 118/78 92 06/29/23 07:07 77 06/29/23 03:52 97.0 F L 80 18 121/79 99 O2 Del Method 06/29/23 11:29 Room Air 06/29/23 08:09 Room Air 06/29/23 07:07 06/29/23 03:52 Room Air Laboratory Results reviewed chemistry reviewed multiple glucose checks PG Care Time/CCT Total # of Minutes Spent Total Time Spent with Patient: Total time spent is greater than 50% in coordination of care (as documented) at patient's floor/unit and/or counseling patient: Coding Level of Care Code 59415 SUB INP/OBS CARE 2/35MIN Diagnoses Severe sepsis A41.9; R65.20 Colitis K52.9 Renal failure N19 Hypocalcemia E83.51 HFrEF (heart failure with reduced ejection fraction) I50.20 Hypothyroidism E03.9
[2023-06-29] MEDS: ONDANSETRON INJ 2 MG/ML 2 ML VIAL IV PRN (14:00)
[2023-06-30] MEDS: VANCOMYCIN HCL 250 MG/5 ML SOLN PO SCH ×3 (05:57→17:28)
[2023-06-30] MEDS: CHERRY SYRUP 5 ML UDP PO SCH ×3 (05:57→17:28)
[2023-06-30] MEDS: LEVOTHYROXINE SODIUM 75 MCG TABLET PO SCH (05:58)
[2023-06-30 06:57] LABS: BUN Creatinine Ratio 8.1 (10-20); Calcium 7.5 mg/dl (8.6-10.3); Creatinine Clr Calc Pharmacy 119.4 ml/min; Est GFR (African American) 124.6 ml/min; Est GFR (Non-African American) 107.5 ml/min; Potassium 4.2 mmol/L (3.5-5.1)
[2023-06-30] MEDS: LOPERAMIDE HCL 2 MG CAP PO SCH (09:12)
[2023-06-30] MEDS: carvediloL 6.25 MG TAB PO SCH ×2 (09:12→17:28)
[2023-06-30] MEDS: ACETAMINOPHEN 500 MG TAB PO SCH ×3 (09:12→21:43)
[2023-06-30 13:02] LABS: Hematocrit (blood only) 25.9 % (37.0-47.0); Hemoglobin 8.2 g/dl (12.0-16.0); Mean Corpuscular Hemoglobin 33.5 pg (25.0-34.0); Mean Corpuscular Hgb Conc 31.7 g/dL (32.0-36.0); Mean Corpuscular Volume 105.7 fL (80.0-100.0); Mean Platelet Volume 12.9 fL (9.4-12.4); Platelet Count 106 K/uL (130-400); RDW Coefficient of Variation 18.9 % (11.5-14.5); RDW Standard Deviation 73.5 fL (36.4-46.3); Red Blood Count 2.45 M/uL (4.20-5.40); White Blood Count 9.21 K/ul (4.8-10.8)
[2023-06-30] MEDS ORDERED: INFLUENZA VACCINE HIGH-DOSE (HD-IIV4) PF 65+ 0.7mL SYR IM ONE (16:17)
--- NOTE | 2023-06-30 18:08 | Hospitalist Progress Note ---
Date of Service June 30, 2023 Assessment & Plan (1) Severe sepsis: Plan: - sepsis resolved, source of sepsis felt possibly to be C. difficile - previous provider discussion with radiology regarding the hepatic cysts on CT, her previous hx of liver abscesses, appreciate their help, they confirm that findings are consistent with hepatic cysts and not an abscess - negative Lyme testing - patient on oral vancomycin to complete 14-day course, other antibiotics have been discontinued. (2) Colitis: Plan: -Noted on CT of the abd/pelvis- improving -C. diff colitis On vancomycin. diarrhea persists did not have help with cholestyramine, improved with very sparing doses of Imodium only one dose a day or less (3) Renal failure: Plan: acute kidney injury with chronic kidney disease stage III-Resolved -Normally uses BID Celebrex; hold patient has back pain now without the Celebrex. Will place on scheduled Tylenol and use Lidoderm patch initiated 06/27/2023 -Will place hunter cath on admission, (4) Hypocalcemia: Plan: -Ionized calcium at 0.69 today with calcium of 7.7, and albumin of 2.3 -Likely multifactorial including poor oral intake, low albumin, and yearly Zolendronic acid infusions (last was in December) -Corrected calcium is 9.1 - BID PO calcium carbonate improved (5) HFrEF (heart failure with reduced ejection fraction): Plan: - hemodynamically stable at this time -LVEF of 40-45% -coreg 6.25 bid (6) Hypothyroidism: Plan: -Continue levothyroxine Plan awaiting approval for rehab placement Admission and Anticipated Discharge Date Admission Date: June 17, 2023 Subjective Patient was without complaints or problems today. Having less diarrhea. [facility] was [facility] and [facility]. Rehab is recommended by physical therapy, likely denied rehab due to her functional ability being very poor so subacute rehab was recommended Physical Exam Physical Exam: Patient is awake alert appropriate Card exam is regular lungs are clear she is weak and in bed Results & Data Results & Data Vital Signs (Past 12 Hours) Vital Signs Temp Pulse Pulse Resp BP Pulse Ox O2 Del Method 06/30/23 16:04 98.1 F 88 18 147/75 H 99 Room Air 06/30/23 15:00 98.2 F 98 H 20 135/69 99 Room Air 06/30/23 08:00 78 06/30/23 08:00 98.2 F 88 20 125/79 97 Room Air Laboratory Results Reviewed CBC reviewed chemistry PG Care Time/CCT Total # of Minutes Spent Total Time Spent with Patient: Total time spent is greater than 50% in coordination of care (as documented) at patient's floor/unit and/or counseling patient: Coding Level of Care Code 12675 SUB INP/OBS CARE 1/25MIN Diagnoses Severe sepsis A41.9; R65.20 Colitis K52.9 Renal failure N19 Hypocalcemia E83.51 HFrEF (heart failure with reduced ejection fraction) I50.20 Hypothyroidism E03.9
[2023-07-01] MEDS: CHERRY SYRUP 5 ML UDP PO SCH (00:01)
[2023-07-01] MEDS: VANCOMYCIN HCL 250 MG/5 ML SOLN PO SCH (00:01)
[2023-07-01] MEDS: LEVOTHYROXINE SODIUM 75 MCG TABLET PO SCH (04:57)
[2023-07-01] MEDS: ACETAMINOPHEN 500 MG TAB PO SCH ×3 (08:33→19:55)
[2023-07-01] MEDS: carvediloL 6.25 MG TAB PO SCH ×2 (08:33→16:29)
[2023-07-01] MEDS: LOPERAMIDE HCL 2 MG CAP PO SCH (08:33)
[2023-07-01] MEDS: LIDOCAINE 5% 1 PATCH TD SCH (08:33)
[2023-07-01] MEDS ORDERED: ENOXAPARIN INJ 40 MG/0.4 ML SYR SQ ONE (17:59)
--- NOTE | 2023-07-01 18:00 | Hospitalist Progress Note ---
Date of Service July 01, 2023 Assessment & Plan (1) Severe sepsis: Plan: - sepsis resolved, source of sepsis felt possibly to be C. difficile - previous provider discussion with radiology regarding the hepatic cysts on CT, her previous hx of liver abscesses, appreciate their help, they confirm that findings are consistent with hepatic cysts and not an abscess - negative Lyme testing - patient on oral vancomycin to complete 14-day course, other antibiotics have been discontinued. (2) Colitis: Plan: -Noted on CT of the abd/pelvis- improving -C. diff colitis On vancomycin. diarrhea persists did not have help with cholestyramine, improved with very sparing doses of Imodium only one dose a day or less (3) Renal failure: Plan: acute kidney injury with chronic kidney disease stage III-Resolved -Normally uses BID Celebrex; hold patient has back pain now without the Celebrex. Will place on scheduled Tylenol and use Lidoderm patch initiated 06/27/2023 -Will place hunter cath on admission, (4) Hypocalcemia: Plan: -Ionized calcium at 0.69 today with calcium of 7.7, and albumin of 2.3 -Likely multifactorial including poor oral intake, low albumin, and yearly Zolendronic acid infusions (last was in December) -Corrected calcium is 9.1 - BID PO calcium carbonate improved (5) HFrEF (heart failure with reduced ejection fraction): Plan: - hemodynamically stable at this time -LVEF of 40-45% -coreg 6.25 bid (6) Hypothyroidism: Plan: -Continue levothyroxine Plan Patient tachycardia during today of 1031. Not been on chemoprophylaxis for DVT prevention. We will check CT angiography for pulmonary embolism. In the meantime starting Lovenox 40 subcu daily Admission and Anticipated Discharge Date Admission Date: June 17, 2023 Subjective Patient was without complaints or problems. Having less diarrhea. [facility] was [facility] and second choice [facility]. Rehab is recommended by physical therapy, likely denied rehab due to her functional ability being very poor so subacute rehab was recommended Physical Exam Physical Exam: Patient is awake alert appropriate Card exam is regular lungs are clear she is weak and in bed Results & Data Results & Data Vital Signs (Past 12 Hours) Vital Signs Temp Pulse Pulse Resp BP BP Pulse Ox 07/01/23 15:36 97.7 F 116 H 20 101/68 98 07/01/23 14:49 100.0 F H 119 H 20 106/62 96 07/01/23 08:00 07/01/23 12:18 112 H 95 07/01/23 12:13 98.4 F 130 H 21 144/97 H 07/01/23 07:15 98.1 F 83 20 116/57 L 97 07/01/23 07:19 80 O2 Del Method 07/01/23 15:36 Room Air 07/01/23 14:49 Room Air 07/01/23 08:00 Room Air 07/01/23 12:18 Room Air 07/01/23 12:13 07/01/23 07:15 Room Air 07/01/23 07:19 PG Care Time/CCT Total # of Minutes Spent Total Time Spent with Patient: Total time spent is greater than 50% in coordination of care (as documented) at patient's floor/unit and/or counseling patient: Coding Level of Care Code 60949 SUB INP/OBS CARE 1/25MIN Diagnoses Severe sepsis A41.9; R65.20 Colitis K52.9 Renal failure N19 Hypocalcemia E83.51 HFrEF (heart failure with reduced ejection fraction) I50.20 Hypothyroidism E03.9
[2023-07-01] MEDS ORDERED: FAMOTIDINE 20 MG TAB PO ONE (21:32)
[2023-07-02] MEDS: predniSONE 50 MG TAB PO SCH ×3 (00:05→10:55)
[2023-07-02] MEDS: LEVOTHYROXINE SODIUM 75 MCG TABLET PO SCH (05:11)
[2023-07-02] MEDS ORDERED: predniSONE 50 MG TAB PO SCH (05:45)
[2023-07-02] MEDS: carvediloL 6.25 MG TAB PO SCH (09:00)
[2023-07-02] MEDS: ACETAMINOPHEN 500 MG TAB PO SCH (09:00)
[2023-07-02] MEDS ORDERED: LORATADINE 10 MG TAB PO SCH (09:00)
[2023-07-02] MEDS: LIDOCAINE 5% 1 PATCH TD SCH (09:00)
[2023-07-02] MEDS: LOPERAMIDE HCL 2 MG CAP PO SCH (09:00)
[2023-07-02] MEDS ORDERED: ENOXAPARIN INJ 40 MG/0.4 ML SYR SQ SCH (09:00)
[2023-07-02] MEDS ORDERED: FAMOTIDINE 20 MG in SYRINGE 3 ML IV SCH (11:00)
[2023-07-02] MEDS ORDERED: FAMOTIDINE 20 MG in DEXTROSE 5% 100 ML IV SCH (11:00)
[2023-07-02] MEDS ORDERED: OPTIRAY 320 500ml IV ONE (11:24)
--- NOTE | 2023-07-02 12:01 | CT Scan Report ---
CT ANGIOGRAM OF THE CHEST CLINICAL HISTORY: Tachycardia. COMPARISON STUDY: Chest x-ray dated 06/22/2023. Chest CT dated 06/19/2023. TECHNIQUE: Following the IV administration of 111 cc of Optiray 320, CT angiogram of the chest was pe rformed from the upper abdomen to the thoracic inlet utilizing the pulmonary embolus protocol. Images are reviewed in the axial, sagittal, and coronal planes. 3-D MIPS images are created and assessed. I V contrast was administered without complication. A dose lowering technique was utilized adhering to the principles of ALARA. The Examination is significantly degraded by motion artifact, as well as by streak artifact from the arms which could not be elevated on the chest. There is also streak artifac t from bilateral shoulder arthroplasties. CT DOSE: 780.01 mGy.cm FINDINGS: Thyroid: Mildly atrophic. Thoracic aorta: There is atherosclerotic calcification of the thoracic aorta, which is normal in lisa jon and demonstrates standard 3-vessel arch anatomy. No dissection is seen. Pulmonary vasculature: The pulmonary trunk is normal in caliber. There are no filling defects identif ied in main, lobar, or segmental pulmonary branches to suggest pulmonary embolus. Heart: The heart is normal in size noting trace pericardial effusion. There are scattered coronary ar timo calcifications. Lungs and pleural spaces: Evaluation of the lung parenchyma is degraded by motion artifact. The trach ea and central airways are clear. There are small bilateral pleural effusions with dependent atelecta sis. No airspace consolidation is seen typical for pneumonia. There are scattered calcified granuloma s. Mediastinum: There is no mediastinal lymphadenopathy. Mady: Clear. Axillae: There is no axillary lymphadenopathy. Upper abdomen: There is trace pneumobilia. There is a small volume of perihepatic and perisplenic asc ites. Small hepatic cysts measure up to 1.8 cm. Skeletal structures: The skeletal structures are osteopenic. No lytic or blastic bony lesions are see n. 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 Severe compression deformities of T3 and L1 with r etropulsed fragments are unchanged. Mild superior endplate compression deformities of T12 and L2 are unchanged. Again seen is a subacute appearing fracture of the left scapula. There is also chronic def ormity of the sternum. There are chronic/healed left-sided rib fractures. Soft tissues: There is body wall edema. IMPRESSION: 1. Significant streak and motion compromised examination. 2. There is no evidence of pulmonary embolus in the main, lobar, or segmental pulmonary arteries. 3. Small pleural effusions with dependent atelectasis. 4. A small volume of ascites is noted in the upper abdomen. 5. Additional findings as above. ACT 112: Negative or not required by law. Electronically signed by: Samm Ferrer M.D. 07/02/2023 12:00 PM
--- NOTE | 2023-07-02 15:35 | Discharge Summary ---
Date of Service July 02, 2023 Admission HPI Per Admitting Provider Tammy is a 73-year-old female with history of CAD (Ostial/proximal LAD 100% occlusion with vyip-kz-ewgs and lfttm-xt-suau collaterals, mid LCx 40%-50%. stenosis), Ischemic Cardiomyopathy (LVEF 40% to 45%), Hypertension, previous perforated cholecystitis with liver abscess secondary to gallstone erosion S/P ERCP with lithotripsy, fungemia, stent placement and brief episode of cardiac arrest with ROSC achieved after one round of epi in 2021, Rheumatoid Arthritis, Asthma, Hypothyroidism, and Choledocholithiasis s/p Stent placement by [facility] who presented to the [facility] ED on 06/17 for progressive generalized weakness, poor oral intake, lower abdominal pain, and decreased urine output. In the ED the patient was initially noted to be hypotensive at 85/60 and tachycardic at 101 but otherwise stable. Labs were significant for a leukocytosis of 18 with neutrophil predominance of 15, platelet count of 119, INR of 1.5, PT of 16.3, APTT of 40.3, VBG WNL, Cr of 1.85 (baseline is near 0.8), glucose of 67, initial lactate of 3.2 with 2 hour repeat of 2.8, ionized calcium of 0.69, mag o f1.5, total bili of 1.1, direct bili of 0.7, AST/ALT WNL, alk phos of 285, procal of 32, UA not indicative of acute infection, and Covid 19, influenza A/B, and RSV negative. Chest xray was read as "No acute abnormalities and in particular no radiographic evidence of pneumonia.". CT of the abd/pelvis was obtained as the patient's renal failure prevented administration of IV con and was read as " 1. Findings suggestive of a nonspecific colitis. Mild pericolonic stranding and colonic wall thickening. 2. Exam compromised given artifact and lack of IV contrast, as described above. No bowel obstruction. No pneumatosis, free air or portal venous gas. 3. Small amount of ascites. 4. Trace bilateral pleural effusions. Subpleural opacities suggestive of atelectasis. 5. Possible cirrhosis.". Prior to admission the patient was given 2L NSS, 2gm IV mag- sulfate, a dose of cefepime, and was initilly given 50 mg IV benadryl and 40 mg IV methylprednisolone as she has a previous contrast allergy. At the time of the exam the exam the patient was lying in bed in no acute distress with her sitting bedside, history was obtained from both. They confirm that she had her previous stent placed by [facility] who also removed her previous gallstones which were eroding into her liver in October. She has a follow up appointment with them next Friday. Starting on 06/13 the patient began to experience BL lower abdominal pain, nausea without vomiting, poor oral intake, decreased urine output, and generalized weakness. They state that she was so weak today that her had to help her out of bed and assist her walking to the bathroom, but she has been able to ambulate. She denies focal neurologic symptoms, unilateral weakness, saddle anesthesia, loss of bowel or bladder control, and recent trauma. She does not her chronic thoracic back pain to be at baseline. She states that she has not had urine output since 06/15 and has not had a bowel movement since 06/14. She has chronic diarrhea at baseline but denies recent melena or bloody BM's. She denies upper abdominal pain similar to previous episodes of cholecystitis/choledocholithiasis. She has been unable to consistently take her medications over this time. She states that she only takes one tab of tylenol BID and one tab of Celebrex BID. She denies other NSAID use. She states that she feels much improved after the initial treatment given in the ED. We discussed code status, she wishes to be a full code and for her to make medical decisions for her if she cannot make them herself. Please refer to Dr. Latif's attestation for any changes to the treatment plan Principal Diagnosis sepsis c diff colitis hfref medicaiton induced hypokalemia Discharge Exam awake and alert cardiac is regular lungs are clear Discharge Data Allergies Allergy/AdvReac Type Severity Reaction Status Date / Time bacitracin Allergy Intermediate Hives, Verified 03/24/23 10:51 blisters clavulanic acid Allergy Intermediate Hives Verified 03/24/23 10:51 diphenhydramine Allergy Intermediate Hives Verified 03/24/23 10:51 iodine Allergy Intermediate Hives Verified 03/24/23 10:51 ketorolac Allergy Intermediate Hives Verified 03/24/23 10:51 meclofenamic acid Allergy Intermediate Hives Verified 03/24/23 10:51 neomycin Allergy Intermediate Hives, Verified 03/24/23 10:51 blisters NSAIDS (Non-Steroidal Allergy Intermediate Hives Verified 03/24/23 10:51 Anti-Inflamma (tolerates Celebrex) oxycodone Allergy Intermediate Hives Verified 03/24/23 10:51 (tolerates Vicodin) polymyxin B Allergy Intermediate Hives, Verified 03/24/23 10:51 blisters quinine Allergy Intermediate Hives Verified 03/24/23 10:51 Sulfa (Sulfonamide Allergy Intermediate Hives Verified 03/24/23 10:51 Antibiotics) tramadol Allergy Intermediate Hives, Verified 03/24/23 10:51 itching adhesive Allergy Mild Rash Verified 03/24/23 10:51 doxycycline Allergy Mild Anaphylaxis Verified 03/24/23 10:51 hydroxychloroquine Allergy Mild Rash Verified 03/24/23 10:51 latex Allergy Mild Rash Verified 03/24/23 10:51 methotrexate Allergy Mild Rash Verified 03/24/23 10:51 povidone-iodine Allergy Mild Rash Verified 03/24/23 10:51 meperidine AdvReac Intermediate N/V Verified 03/24/23 10:51 prednisone AdvReac Intermediate Made Verified 03/24/23 10:51 "bones soft" aspirin AdvReac Mild N/V Verified 03/24/23 10:51 Consultations 06/17/23 15:21 ED Decision to Admit Stat 06/17/23 21:24 Consult Hematology Routine 06/21/23 11:07 Consult Gastroenterology Routine Ordered Studies 06/17/23 14:09 CT abd pelvis wo con Stat 06/19/23 03:58 CT abd pelvis wo con Stat CT chest diagnostic wo con Stat CT head/brain wo con Stat 07/01/23 21:31 CT angio chest PE protocol Routine Hospital Course (1) Severe sepsis: - sepsis resolved, source of sepsis felt possibly to be C. difficile - previous provider discussion with radiology regarding the hepatic cysts on CT, her previous hx of liver abscesses, appreciate their help, they confirm that findings are consistent with hepatic cysts and not an abscess - negative Lyme testing - patient on oral vancomycin to complete 14-day course, other antibiotics have been discontinued. LD 07/04/23 (2) Colitis: -Noted on CT of the abd/pelvis- improving -C. diff colitis On vancomycin. (3) Renal failure: acute kidney injury with chronic kidney disease stage III-Resolved -Normally uses BID Celebrex; hold patient has back pain now without the Celebrex. Will place on scheduled Tylenol and use Lidoderm patch initiated 06/27/2023 -Will place hunter cath on admission, (4) Hypocalcemia: -Ionized calcium at 0.69 today with calcium of 7.7, and albumin of 2.3 -Likely multifactorial including poor oral intake, low albumin, and yearly Zolendronic acid infusions (last was in December) -Corrected calcium is 9.1 - BID PO calcium carbonate improved (5) HFrEF (heart failure with reduced ejection fraction): - hemodynamically stable at this time -LVEF of 40-45% -coreg 6.25 bid replaces metoprolol (6) Hypothyroidism: -Continue levothyroxine Plan CT angiography negative for pulmonary embolism. Total Time Total Time Spent Total Time Spent (In Minutes): It required greater than 30 minutes to prepare this patient for discharge Discharge Plan Discharge Items Patient Disposition: Home - Home Health Services Reason For Visit: SEPSIS, RENAL FAILURE, COLITIS Discharge Diagnosis: sepsis resolved deborah improved c diff colitis Activity: Per Instructions section Activity Comment: per PT/OT Non-emergency contact: Primary Care Provider Call non-emergency contact if: your symptoms worsen Follow-up/Referrals: Tayla Kent DO [Primary Care Provider] - 07/10/23 10:20 am (Will see VICTOR MANUEL Adams in Dr Kent's office) Diet: Regular Addtl Attending Provider Instructions: complete oral vancomycin last dose 07/04/23 Pending Studies at Discharge: No Stand-Alone Forms: My [facility] [employer], Smoking Cessation Medications and DC Order Prescriptions: New vancomycin 1,000 mg Recon Soln 250 mg PO Q6 Qty: 20 0RF carvedilol 6.25 mg Tablet 6.25 mg PO BIDM Qty: 60 0RF lidocaine 5 % Adhesive Patch,Medicated 1 patch transdermal QAM Qty: 10 0RF Continued acetaminophen [Tylenol Arthritis Pain] 650 mg tablet extended release 650 mg PO Q8H PRN (Reason: Pain) levothyroxine 75 mcg tablet 75 mcg PO QAM Qty: 90 1RF escitalopram oxalate [Lexapro] 20 mg tablet 20 mg PO QAM Qty: 90 1RF lansoprazole [Prevacid 24Hr] 15 mg capsule,delayed release(DR/EC) 15 mg PO QAM Qty: 90 1RF Rx Instructions: TAKE 1 CAPSULE BY MOUTH EVERY DAY aspirin 81 mg tablet,delayed release (DR/EC) 81 mg PO QAM Qty: 90 1RF nitroglycerin [Nitrostat] 0.4 mg Tablet, Sublingual 0.4 mg sublingual Q5M PRN (Reason: chest pain) Qty: 25 3RF Rx Instructions: can take 1 tablet every 5 minutes for up to 3 total doses. Call 911 for chest pain that does not resolve after 1st dose. calcium carbonate-vitamin D3 600 mg-5 mcg (200 unit) Tablet 1 tab PO QAM folic acid 1 mg tablet 1 mg PO QAM albuterol sulfate [Ventolin HFA] 90 mcg/actuation HFA aerosol inhaler 1 - 2 puff inhalation .Q 4-6 HRS PRN (Reason: shortness of breath or wheezing) Rx Instructions: 1-2 puffs inhalation 1 puff INH every 4-6 hrs; PRN; Held atorvastatin 40 mg tablet 40 mg PO QAM Qty: 90 1RF Hold Instructions: Resume on 07/07/23. Discontinued magnesium oxide 400 mg (241.3 mg magnesium) tablet 400 mg PO BID Qty: 180 1RF nortriptyline 10 mg capsule 10 mg PO QAM Qty: 90 1RF nortriptyline 25 mg capsule 25 mg PO HS Qty: 90 2RF metoprolol succinate 50 mg tablet extended release 24 hr 50 mg PO DAILY Qty: 180 3RF potassium chloride 10 mEq tablet extended release 10 meq PO QAM Qty: 90 1RF montelukast [Singulair] 10 mg tablet 10 mg PO QAM Qty: 90 1RF celecoxib [Celebrex] 200 mg capsule 200 mg PO BID Qty: 180 1RF zoledronic ntyz-zskfazyx-efkbf 5 mg/100 mL piggyback 5 mg/kg IV YEARLY Rx Instructions: TAKE THIS MED ONCE EVERY YEAR IN NOVEMBER. valacyclovir 1 gram tablet 2,000 mg PO DAILY PRN (Reason: Cold Sores) Qty: 12 1RF silver sulfadiazine 1 % cream 1 applic topical DAILY Qty: 20 0RF Rx Instructions: apply a 1.5 mm thickness docusate sodium 100 mg Capsule 100 mg PO BID PRN (Reason: Constipation) ondansetron 4 mg tablet,disintegrating 4 mg translingual Q12 PRN (Reason: Nausea) Rx Instructions: Place 1 tablet on tongue every 12 hours as needed for nausea. Discharge Orders: Discharge Order (Routine); Ordered 07/02/23 Ordered By: Priyank Reveles Admission Data Admit Date/Time: 06/17/23 17:44 Attending Provider: Priyank Reveles Admit Provider: Levi Latif Primary Care Provider: Tayla Kent Other Providers: Levi Latif ; [facility] ; Julio Patel Jr ; Mandi Donovan ; [facility] [place] Other Interventions: Discharge Summary Assessment (RN) Last Done: 07/02/23 13:18 Coding Level of Care Code 87436 INP/OBS DISCH >30 MIN Diagnoses Severe sepsis A41.9; R65.20 Colitis K52.9 Renal failure N19 Hypocalcemia E83.51 HFrEF (heart failure with reduced ejection fraction) I50.20 Hypothyroidism E03.9
== END 2023-07-02 14:27 | disposition home health service (06) | DRG 872 ==
LOC: ED 12:43 → EDINP 17:44 → SUATTDRO 17:44 → 2S 20:31

== ENCOUNTER 2023-08-07 18:09 | Inpatient (IN) ==
[2023-08-07 19:22] LABS: Appearance Urine Turbid (Clear); Bacteria Urine Automated 4+ (Negative); Blood Urine 3+ (Negative); Color Urine Dark Yellow; Glucose Urine UA Negative (Negative); Ketones Urine Negative (Negative); Leukocyte Esterase Urine 2+ (Negative); Nitrite Urine Positive (Negative); Protein Urine 2+ (Negative); RBC Urine Automated 0-4 /hpf (0-4); Specific Gravity Urine 1.028 (1.000-1.030); Urobilinogen Urine Positive (Negative); WBC Urine Automated >30 /hpf (0-5)
[2023-08-07 19:25] LABS: Bilirubin Urine 1+ (Negative)
[2023-08-07 19:26] LABS: Basophils # (auto) 0.02 K/uL (0.00-0.20); Basophils % (auto) 0.2 %; Eosinophils # (auto) 0.03 K/uL (0.00-0.50); Eosinophils % (auto) 0.3 %; Hematocrit (blood only) 28.3 % (37.0-47.0); Hemoglobin 9.6 g/dl (12.0-16.0); Immature Granulocytes # (auto) 0.08 K/uL (0.01-0.20); Immature Granulocytes % (auto) 0.8 %; Lymphocytes # (auto) 1.64 K/uL (1.20-3.40); Lymphocytes % (auto) 17.4 %; Mean Corpuscular Hgb Conc 33.9 g/dL (32.0-36.0); Mean Platelet Volume 12.6 fL (9.4-12.4); Monocytes # (auto) 0.72 K/uL (0.11-0.59); Monocytes % (auto) 7.6 %; Neutrophils # (auto) 6.96 K/uL (1.40-6.50); Neutrophils % (auto) 73.7 %; Platelet Count 65 K/uL (130-400); RDW Coefficient of Variation 24.2 % (11.5-14.5); RDW Standard Deviation 93.2 fL (36.4-46.3); Red Blood Count 2.67 M/uL (4.20-5.40); White Blood Count 9.45 K/ul (4.8-10.8)
[2023-08-07 19:46] LABS: Albumin Level 1.9 gm/dl (3.4-5.0); BUN Creatinine Ratio 14.1 (10-20); Bilirubin Direct 0.8 mg/dl (0-0.2); Bilirubin,Total 1.5 mg/dl (0.2-1.0); Calcium 7.5 mg/dl (8.6-10.3); Creatinine Clr Calc Pharmacy 35.2 ml/min; Est GFR (African American) 48.7 ml/min; Magnesium 1.6 mg/dl (1.7-2.4); Potassium 6.1 mmol/L (3.5-5.1)
[2023-08-07 19:47] LABS: Anisocytosis Present; Echinocytes 1+
[2023-08-07 19:49] LABS: Troponin I High Sensitivity 21.6 pg/ml (0-14)
[2023-08-07] MEDS ORDERED: STAT IV/IM STA (19:50)
[2023-08-07] MEDS ORDERED: DEXTROSE 50% 50 ML SYRINGE IV STA (19:50)
[2023-08-07] MEDS ORDERED: CALCIUM GLUCONATE 10% 1,000 MG in SODIUM CHLOR 0.9% MINI-B 50 ML IV ONE (19:50)
[2023-08-07] MEDS ORDERED: INSULIN HUMAN REGULAR PER UNIT 5 UNITS in SYRINGE 9.9 ML IV STA (19:50)
[2023-08-07] MEDS ORDERED: cefTRIAXone SODIUM 2,000 MG/50 ML BAG IV STA (19:54)
[2023-08-07 20:07] LABS: INR 1.2 (0.9-1.1); Partial Thromboplastin Ratio 1.4; Partial Thromboplastin Time 40 Seconds (21-31)
--- NOTE | 2023-08-07 20:27 | Emergency Department Note ---
History of Present Illness General Chief complaint: Lethargic Stated complaint: LETHARGIC Time Seen by Provider: 08/07/23 18:57 History of Present Illness Provider complaint: Lethargy Onset (ago): month(s) 1 73-year-old female was brought to the emergency department by her for lethargy. Patient reports that she has been increasingly weak over the last month ever since she was discharged from the hospital. reports she cannot take care of the patient anymore and that the home health care that they are getting for the patient is not up to his goals for the patient. He reports that the patient lies in bed all day and has no energy to walk or move. He denies any falls. No nausea vomiting diarrhea chest pain difficulty breathing headaches. No fevers. Home Medications Medication Instructions Recorded Confirmed Type nitroglycerin 0.4 mg sublingual 0.4 mg sublingual Q5M PRN chest 02/22/21 08/07/23 Rx tablet (Nitrostat) pain #25 tabs calcium carbonate 600 mg-vitamin 1 tab PO QAM 08/24/21 08/07/23 History D3 5 mcg (200 unit) tablet acetaminophen 650 mg 650 mg PO Q8H Pain 12/04/21 08/07/23 History tablet,extended release (Tylenol Arthritis Pain) folic acid 1 mg tablet 1 mg PO QAM 05/24/22 08/07/23 History levothyroxine 75 mcg tablet 75 mcg PO QAM #90 tabs 02/25/23 08/07/23 Rx escitalopram oxalate 20 mg tablet 20 mg PO QAM #90 tabs 02/26/23 08/07/23 Rx (Lexapro) aspirin 81 mg tablet,delayed 81 mg PO QAM #90 tabs 05/20/23 08/07/23 Rx release lansoprazole 15 mg capsule,delayed 15 mg PO QAM #90 caps 05/20/23 08/07/23 Rx release (Prevacid 24Hr) albuterol sulfate 90 mcg/actuation 1 - 2 puff inhalation .Q 4-6 HRS 06/17/23 08/07/23 History aerosol inhaler (Ventolin HFA) PRN shortness of breath or wheezing menthol 0.44 %-zinc oxide 20.6 % 1 applic topical QID PRN skin 07/10/23 08/07/23 Rx topical ointment (Calmoseptine) irritation #113 grams montelukast 10 mg tablet 10 mg PO QAM #90 tabs 07/10/23 08/07/23 Rx (Singulair) nortriptyline 25 mg capsule 25 mg PO HS #90 caps 07/10/23 08/07/23 Rx polyethylene glycol 3350 17 17 g PO DAILY PRN constipation 07/10/23 08/07/23 Rx gram/dose oral powder (Miralax) #119 grams carvedilol 6.25 mg tablet 6.25 mg PO BIDM #180 tabs 07/31/23 08/07/23 Rx potassium chloride 10 mEq 10 meq PO QAM 08/07/23 08/07/23 History tablet,extended release Allergies Allergy/AdvReac Type Severity Reaction Status Date / Time bacitracin Allergy Intermediate Hives, Verified 03/24/23 10:51 blisters clavulanic acid Allergy Intermediate Hives Verified 03/24/23 10:51 diphenhydramine Allergy Intermediate Hives Verified 03/24/23 10:51 iodine Allergy Intermediate Hives Verified 03/24/23 10:51 ketorolac Allergy Intermediate Hives Verified 03/24/23 10:51 meclofenamic acid Allergy Intermediate Hives Verified 03/24/23 10:51 neomycin Allergy Intermediate Hives, Verified 03/24/23 10:51 blisters NSAIDS (Non-Steroidal Allergy Intermediate Hives Verified 03/24/23 10:51 Anti-Inflamma (tolerates Celebrex) oxycodone Allergy Intermediate Hives Verified 03/24/23 10:51 (tolerates Vicodin) polymyxin B Allergy Intermediate Hives, Verified 03/24/23 10:51 blisters quinine Allergy Intermediate Hives Verified 03/24/23 10:51 Sulfa (Sulfonamide Allergy Intermediate Hives Verified 03/24/23 10:51 Antibiotics) tramadol Allergy Intermediate Hives, Verified 03/24/23 10:51 itching adhesive Allergy Mild Rash Verified 03/24/23 10:51 doxycycline Allergy Mild Anaphylaxis Verified 03/24/23 10:51 hydroxychloroquine Allergy Mild Rash Verified 03/24/23 10:51 latex Allergy Mild Rash Verified 03/24/23 10:51 methotrexate Allergy Mild Rash Verified 03/24/23 10:51 povidone-iodine Allergy Mild Rash Verified 03/24/23 10:51 meperidine AdvReac Intermediate N/V Verified 03/24/23 10:51 prednisone AdvReac Intermediate Made Verified 03/24/23 10:51 "bones soft" aspirin AdvReac Mild N/V Verified 03/24/23 10:51 Past Med/Surg History Medical History Diarrhea Abnormal CT of the abdomen Volume overload V-tach Liver abscess History of COVID-19 DX 05/2021 (NO SYMPTOMS>PT STATES WAS A FALSE POSITIVE) Anxiety and depression Cholecystitis with perforation of gallbladder Encounter for pre-operative examination Cholangitis COVID-19 Hypotension Hypoxia Ischemic cardiomyopathy Coronary artery disease Cardiac catheterization -02/22/2021:Impression: 1. Severe CAD involving ostial/proximal LAD (100%), filling via left to left and right to left collaterals. 2. Otherwise nonobstructive CAD involving the mid circumflex. 3. No aortic stenosis. 4. Normal left-sided filling pressure. Anemia Hx of fracture Right shoulder AC joint fracture (10/2020) due to traumatic event > healing without surgical intervention Insomnia Lumbar spinal stenosis Steroid-induced osteoporosis IBS (irritable bowel syndrome) GERD (gastroesophageal reflux disease) Hypothyroidism History of right breast cancer s/p lumpectomy (1969)- no chemo or xrt Rheumatoid arthritis Hyperlipidemia Lumbar facet joint syndrome Sacroiliitis Allergic rhinitis Asthma Hypertension Surgical History History of biopsy Nausea and vomiting after administration of anesthetic agent History of cardiac cath NO - [place] - Dr. Arthur History of ERCP WITH STENT (NOT PRESENT) H/O cataract extraction R/L eye S/P ORIF (open reduction internal fixation) fracture Left ankle H/O arthroscopy of shoulder L shoulder S/p reverse total shoulder arthroplasty Left reverse TSA (02/26/19): Grade view 2, MAC#3, ETT 7 + PNB at [facility] (scope patch used) History of tonsillectomy History of foot surgery R/L History of arthroscopy of left knee History of right knee joint replacement History of total abdominal hysterectomy and bilateral salpingo-oophorectomy d/t endometriosis History of lumpectomy of right breast History of breast biopsy Family History Grandmother (Paternal) Family history of diabetes mellitus Grandmother (Maternal) Family history of diabetes mellitus Father Coronary heart disease Alzheimer disease Myocardial infarction Osteoarthritis COPD (chronic obstructive pulmonary disease) Lung disease Mother Myocardial infarction COPD (chronic obstructive pulmonary disease) Other No family history of adverse response to anesthesia Denies family history of Ovarian cancer Prostate cancer Breast cancer Colorectal cancer Social History Smoking Status: Never smoker Second Hand Exposure: Yes; Do You Dip or Chew Tobacco: No; Hx Alcohol Use: No Hx Substance Use: No Preferred Language: Barbadian Communication Ability: Effective Visual Impairment: No Limitations Hearing Ability: Normal Felting Machine Operator Required: No Beliefs That Will Affect Care: None marital status: Current Living Situation: Spouse and Family Current Living Situation Comment: Home with family current occupational status: retired How many Children do You have: 2 Feels Safe at Home: Yes Childhood Exposure to Second-Hand Smoke: Yes Diet: regular Diet Comment: regular caffeine: Yes (coffee) during the past year weight has: remained stable Dental Care, Regularly: No Physical Activity Frequency: Daily Physical Activity Frequency Comment: walking indoors Seatbelt Use: always Sunscreen Use: No Assistive Devices: Raised Toilet Seat, Scooter/Electric Scooter and Wheelchair Physical Exam Vital Signs Vital Signs - 24 hr 08/07/23 18:29 08/07/23 18:37 08/07/23 18:37 Temperature 36.4 C Temperature Source Oral Pulse Rate 75 74 Pulse Rate [Apical] Pulse Rhythm Regular Pulse Rhythm [Apical] Pulse Strength Normal Pulse Strength [Apical] Respiratory Rate 17 Respiratory Effort / Characteristics Non-Labored Spontaneous Respiratory Depth Normal Respiratory Pattern Regular Blood Pressure [Right Arm] Blood Pressure Mean [Right Arm] Blood Pressure Position Lying Blood Pressure Position [Right Arm] Pulse Oximetry 98 99 Oxygen Delivery Method Nasal Cannula Nasal Cannula Oxygen Flow Rate 4 4 Sepsis Recent Fever Within 48 Hours No Sepsis New/Unexplained Change in Mental Status N/A Sepsis Action Taken by Nursing No Action Required 08/07/23 18:37 08/07/23 19:00 08/07/23 19:00 Temperature 36.4 C Temperature Source Oral Pulse Rate 74 Pulse Rate [Apical] 76 77 Pulse Rhythm Regular Pulse Rhythm [Apical] Regular Regular Pulse Strength Pulse Strength [Apical] Normal Normal Respiratory Rate 17 19 15 Respiratory Effort / Characteristics Non-Labored Spontaneous Non-Labored Spontaneous Respiratory Depth Normal Normal Respiratory Pattern Regular Regular Blood Pressure [Right Arm] 92/56 L 111/64 Blood Pressure Mean [Right Arm] 68 79 Blood Pressure Position Blood Pressure Position [Right Arm] Semi-fowlers Semi-fowlers Pulse Oximetry 99 97 96 Oxygen Delivery Method Nasal Cannula Nasal Cannula Nasal Cannula Oxygen Flow Rate 4 4 4 Sepsis Recent Fever Within 48 Hours Sepsis New/Unexplained Change in Mental Status Sepsis Action Taken by Nursing Physical Exam GENERAL: oriented to person, place, and time. appears well-developed and well- nourished. HENT: Exam performed. - Head: Normocephalic and atraumatic. EYES: Conjunctivae and EOM are normal. Right eye exhibits no discharge. Left eye exhibits no discharge. No scleral icterus. NECK: Normal range of motion. Neck supple. No JVD present. CV: Normal rate, regular rhythm, normal heart sounds and intact distal pulses. There is no peripheral edema. Palpable radial pulses bue. PULM/CHEST: Effort normal and breath sounds normal. No respiratory distress. No stridor. no wheezes. no rales. ABD: The abdomen is soft. There is no tenderness. NEURO: Motor and sensation grossly intact. SKIN: Skin is warm and dry. He is not diaphoretic. PSYCH: normal mood and affect. Behavior is normal. Judgment and thought content normal. Course Course 1856: The patient was evaluated in room A9. A complete history and physical exam was performed Cardiac monitoring: An order was placed for continuous cardiac monitoring. The monitor shows a rate of 80 with sinus rhythm interpreted by me Patient's oxygen saturation is stable on room air. 2117: Vital signs stable on room air. Labs show hemoglobin of 9.6 white blood cell count 9.45. Patient potassium is 6.1. Creatinine 1.28. Total bilirubin 1.5 direct bilirubin 0.8 AST 51 alkaline phosphatase 298 high-sensitivity troponin 21.6. Patient has a procalcitonin of 5.47. Urinalysis does appear to be the source of the infection. Patient's glucose is 65. Chest x-ray and CT of the head within normal limits. Patient will be treated with Rocephin 2 g for the UTI. Patient's hyperkalemia will be treated with calcium gluconate, 5 units of insulin given his hyperglycemia, and 1 amp of D50. Patient tolerating p.o. in the emergency department. Patient be admitted to the [facility] team Dr. Lezama will be notified. Administered Medications Discontinued Medications Dextrose (Dextrose 50% 50 Ml Syringe) 50 ml IV NOW STA Stop: 08/07/23 19:51 Last Admin: 08/07/23 20:41 Dose: 50 ml Documented By: DANDRE Calcium Gluconate 1,000 mg/ (Sodium Chloride) 60 mls @ 240 mls/hr IV NOW ONE Stop: 08/07/23 20:04 Last Admin: 08/07/23 20:36 Dose: 240 mls/hr Documented By: DADNRE Insulin Human Regular 5 units/ (Syringe) 9.9 mls @ 3 mls/sec IV ONE STA Stop: 08/07/23 19:51 Last Admin: 08/07/23 20:40 Dose: 3 mls/sec Documented By: DANDRE Co-signed By: FRENCH Ceftriaxone Sodium (Rocephin) 2,000 mg in 50 mls @ 100 mls/hr IV NOW STA Stop: 08/07/23 20:23 Last Admin: 08/07/23 20:44 Dose: 100 mls/hr Documented By: DANDRE Critical Care Time Critical Care Time: Yes Total Critical Care Time: 71 I have personally spent greater than 71 minutes of critical care time in the direct management of this patient. This includes bedside care, interpretation of diagnostic studies, and testing, discussion with consultants, patient, and family members, and other required patient management activities. This 71 minutes is in excess of all separately billable procedures. Medical Decision Making Medical Records Attestation: I reviewed the patient's medical records. External medical records reviewed. Patient was admitted to the hospital in June 2023. Patient was admitted for sepsis. Patient was discharged on July 02, 2023. Patient was discharged with a diagnosis of colitis. C. difficile. She had RHIANNON which resolved. Laboratory Data Attestation: I reviewed the patient's lab results. 08/07/23 18:40 08/07/23 18:40 Lab Results 08/07/23 08/07/23 08/07/23 Range/Units 18:40 18:45 20:22 WBC 9.45 (4.8-10.8) K/ul RBC 2.67 L (4.20-5.40) M/uL Hgb 9.6 L (12.0-16.0) g/dl Hct 28.3 L (37.0-47.0) % MCV 106.0 H (80.0-100.0) fL MCH 36.0 H (25.0-34.0) pg MCHC 33.9 (32.0-36.0) g/dL RDW Std Deviation 93.2 H (36.4-46.3) fL RDW Coeff of Ender 24.2 H (11.5-14.5) % Plt Count 65 L (130-400) K/uL MPV 12.6 H (9.4-12.4) fL Immature Gran % (Auto) 0.8 % Neut % (Auto) 73.7 % Lymph % (Auto) 17.4 % [place] % (Auto) 7.6 % Eos % (Auto) 0.3 % Baso % (Auto) 0.2 % Neut # (Auto) 6.96 H (1.40-6.50) K/uL Lymph # (Auto) 1.64 (1.20-3.40) K/uL [place] # (Auto) 0.72 H (0.11-0.59) K/uL Eos # (Auto) 0.03 (0.00-0.50) K/uL Baso # (Auto) 0.02 (0.00-0.20) K/uL Immature Gran # (Auto) 0.08 (0.01-0.20) K/uL Anisocytosis Present Echinocytes 1+ PT 13.0 H (9.0-12.0) Seconds INR 1.2 H (0.9-1.1) APTT 40 H (21-31) Seconds PTT Ratio 1.4 VBG pH 7.35 L (7.36-7.41) VBG pCO2 50 (38-50) mmHg VBG pO2 32 mmHg VBG HCO3 28 mmol/L VBG O2 Saturation < 60.0 % VBG Base Excess 1.2 mEq/L Sodium 135 L (136-145) mmol/L Potassium 6.1 H* (3.5-5.1) mmol/L Chloride 105 (98-107) mmol/L Carbon Dioxide 28 (21-32) mmol/L Anion Gap 2 L (3-11) BUN 18 (6-23) mg/dl Creatinine 1.28 H (0.6-1.2) mg/dl Est Cr Clr Drug Dosing 35.2 ml/min Est GFR ( Amer) 48.7 ml/min Est GFR (Non-Af Amer) 42.0 ml/min BUN/Creatinine Ratio 14.1 (10-20) Glucose 66 L (70-99(Fasting)) mg/dl POC Glucose (70-99) mg/dl Lactate (0.4-2.0) mmol/L Calcium 7.5 L (8.6-10.3) mg/dl Magnesium 1.6 L (1.7-2.4) mg/dl Total Bilirubin 1.5 H (0.2-1.0) mg/dl Direct Bilirubin 0.8 H (0-0.2) mg/dl AST 51 H (13-39) U/L ALT 17 (7-52) U/L Alkaline Phosphatase 298 H (34-104) U/L Troponin I High Sens 21.6 H (0-14) pg/ml Total Protein 5.0 L (6.0-8.3) gm/dl Albumin 1.9 L (3.4-5.0) gm/dl Procalcitonin 5.47 H (0-0.5) ng/ml Urine Color Dark Yellow Urine Appearance Turbid A (Clear) Urine pH 6.0 (4.5-7.5) Ur Specific Gower 1.028 (1.000-1.030) Urine Protein 2+ H (Negative) Urine Glucose (UA) Negative (Negative) Urine Ketones Negative (Negative) Urine Blood 3+ H (Negative) Urine Nitrite Positive A (Negative) Urine Bilirubin 1+ H (Negative) Urine Urobilinogen Positive H (Negative) Ur Leukocyte Esterase 2+ H (Negative) Urine WBC (Auto) >30 H (0-5) /hpf Urine RBC (Auto) 0-4 (0-4) /hpf U Hyaline Cast (Auto) 1-5 (0-5) /lpf U Epithel Cells (Auto) 10-20 H (0-5) /lpf Urine Bacteria (Auto) 4+ H (Negative) Urine Yeast Not Reportable 08/07/23 08/07/23 08/07/23 Range/Units 20:33 20:39 21:07 WBC (4.8-10.8) K/ul RBC (4.20-5.40) M/uL Hgb (12.0-16.0) g/dl Hct (37.0-47.0) % MCV (80.0-100.0) fL MCH (25.0-34.0) pg MCHC (32.0-36.0) g/dL RDW Std Deviation (36.4-46.3) fL RDW Coeff of Ender (11.5-14.5) % Plt Count (130-400) K/uL MPV (9.4-12.4) fL Immature Gran % (Auto) % Neut % (Auto) % Lymph % (Auto) % [place] % (Auto) % Eos % (Auto) % Baso % (Auto) % Neut # (Auto) (1.40-6.50) K/uL Lymph # (Auto) (1.20-3.40) K/uL [place] # (Auto) (0.11-0.59) K/uL Eos # (Auto) (0.00-0.50) K/uL Baso # (Auto) (0.00-0.20) K/uL Immature Gran # (Auto) (0.01-0.20) K/uL Anisocytosis Echinocytes PT (9.0-12.0) Seconds INR (0.9-1.1) APTT (21-31) Seconds PTT Ratio VBG pH (7.36-7.41) VBG pCO2 (38-50) mmHg VBG pO2 mmHg VBG HCO3 mmol/L VBG O2 Saturation % VBG Base Excess mEq/L Sodium (136-145) mmol/L Potassium (3.5-5.1) mmol/L Chloride (98-107) mmol/L Carbon Dioxide (21-32) mmol/L Anion Gap (3-11) BUN (6-23) mg/dl Creatinine (0.6-1.2) mg/dl Est Cr Clr Drug Dosing ml/min Est GFR ( Amer) ml/min Est GFR (Non-Af Amer) ml/min BUN/Creatinine Ratio (10-20) Glucose (70-99(Fasting)) mg/dl POC Glucose 65 L* 193 H (70-99) mg/dl Lactate 1.5 (0.4-2.0) mmol/L Calcium (8.6-10.3) mg/dl Magnesium (1.7-2.4) mg/dl Total Bilirubin (0.2-1.0) mg/dl Direct Bilirubin (0-0.2) mg/dl AST (13-39) U/L ALT (7-52) U/L Alkaline Phosphatase (34-104) U/L Troponin I High Sens (0-14) pg/ml Total Protein (6.0-8.3) gm/dl Albumin (3.4-5.0) gm/dl Procalcitonin (0-0.5) ng/ml Urine Color Urine Appearance (Clear) Urine pH (4.5-7.5) Ur Specific Gower (1.000-1.030) Urine Protein (Negative) Urine Glucose (UA) (Negative) Urine Ketones (Negative) Urine Blood (Negative) Urine Nitrite (Negative) Urine Bilirubin (Negative) Urine Urobilinogen (Negative) Ur Leukocyte Esterase (Negative) Urine WBC (Auto) (0-5) /hpf Urine RBC (Auto) (0-4) /hpf U Hyaline Cast (Auto) (0-5) /lpf U Epithel Cells (Auto) (0-5) /lpf Urine Bacteria (Auto) (Negative) Urine Yeast Imaging Data Attestation: I personally reviewed and interpreted this imaging study as follows: My Impression: Chest x-ray negative. Airway clear. No pneumothorax. No consolidation. No cardiomegaly or cephalization.. No free air under the diaphragm. No fractures of the skeletal structures. Radiologist's Impression: Head CT 08/07/23 19:10 Exam(s): CT HEAD Without Contrast EXAM: CT Head Without Intravenous Contrast CLINICAL HISTORY: Reason for exam: lethargic. TECHNIQUE: Axial computed tomography images of the head/brain without intravenous contrast. CTDI is 37.01 mGy and DLP is 546.36 mGy-cm. Automated exposure control was utilized for the study. A dose lowering technique was utilized adhering to the principles of ALARA. COMPARISON: No relevant prior studies available. FINDINGS: No acute intracranial hemorrhage. No midline shift or mass effect. The territorial cruz-white matter differentiation is maintained throughout. Age-related cerebral volume loss. Periventricular and subcortical white matter hypoattenuation, consistent with chronic microangiopathy. The visualized orbits appear grossly unremarkable. The calvarium is intact. The visualized paranasal sinuses and mastoid air cells are grossly clear. IMPRESSION: No acute intracranial hemorrhage, midline shift, or mass effect. Electronically signed by: Fernando South MD 08/07/23 20:31 PM ECG Data Attestation: I personally reviewed and interpreted this ECG as follows: Additional Comments: Sinus rhythm with a rate of 76. IL 234 QRS 158 QTc 540. Left bundle branch block present. No significant change from the EKG in June 2023. [facility] Narrative 185: The patient was evaluated in room A9. A complete history and physical exam was performed Cardiac monitoring: An order was placed for continuous cardiac monitoring. The monitor shows a rate of 80 with sinus rhythm interpreted by me Patient's oxygen saturation is stable on room air. 2117: Vital signs stable on room air. Labs show hemoglobin of 9.6 white blood cell count 9.45. Patient potassium is 6.1. Creatinine 1.28. Total bilirubin 1.5 direct bilirubin 0.8 AST 51 alkaline phosphatase 298 high-sensitivity troponin 21.6. Patient has a procalcitonin of 5.47. Urinalysis does appear to be the source of the infection. Patient's glucose is 65. Chest x-ray and CT of the head within normal limits. Patient will be treated with Rocephin 2 g for the UTI. Patient's hyperkalemia will be treated with calcium gluconate, 5 units of insulin given his hyperglycemia, and 1 amp of D50. Patient tolerating p.o. in the emergency department. Patient be admitted to the [facility] team Dr. Lezama will be notified. Impression & Plan Acute UTI, Hyperkalemia Discharge Plan Visit Data Chief Complaint: Lethargic Stated Complaint: LETHARGIC ED Provider: Avni Menezes Discharge Problem: Acute UTI, Hyperkalemia Patient Disposition: Admitted As Inpatient Forms Stand Alone Forms: My [facility] Prescriptions Prescriptions: No Action acetaminophen [Tylenol Arthritis Pain] 650 mg tablet extended release 650 mg PO Q8H levothyroxine 75 mcg tablet 75 mcg PO QAM Qty: 90 1RF escitalopram oxalate [Lexapro] 20 mg tablet 20 mg PO QAM Qty: 90 1RF lansoprazole [Prevacid 24Hr] 15 mg capsule,delayed release(DR/EC) 15 mg PO QAM Qty: 90 1RF Rx Instructions: TAKE 1 CAPSULE BY MOUTH EVERY DAY aspirin 81 mg tablet,delayed release (DR/EC) 81 mg PO QAM Qty: 90 1RF carvedilol 6.25 mg tablet 6.25 mg PO BIDM Qty: 180 3RF nortriptyline 25 mg capsule 25 mg PO HS Qty: 90 2RF menthol-zinc oxide [Calmoseptine] 0.44-20.6 % ointment 1 applic topical QID PRN (Reason: skin irritation) Qty: 113 5RF polyethylene glycol 3350 [Miralax] 17 gram/dose powder 17 g PO DAILY PRN (Reason: constipation) Qty: 119 2RF montelukast [Singulair] 10 mg tablet 10 mg PO QAM Qty: 90 1RF nitroglycerin [Nitrostat] 0.4 mg Tablet, Sublingual 0.4 mg sublingual Q5M PRN (Reason: chest pain) Qty: 25 3RF Rx Instructions: can take 1 tablet every 5 minutes for up to 3 total doses. Call 911 for chest pain that does not resolve after 1st dose. calcium carbonate-vitamin D3 600 mg-5 mcg (200 unit) Tablet 1 tab PO QAM folic acid 1 mg tablet 1 mg PO QAM potassium chloride 10 mEq tablet extended release 10 meq PO QAM albuterol sulfate [Ventolin HFA] 90 mcg/actuation HFA aerosol inhaler 1 - 2 puff inhalation .Q 4-6 HRS PRN (Reason: shortness of breath or wheezing) Rx Instructions: 1-2 puffs inhalation 1 puff INH every 4-6 hrs; PRN; Referrals Referrals: Tayla Kent DO [Primary Care Provider] -
[2023-08-07 20:32] LABS: Base Excess VBG 1.2 mEq/L; HCO3 VBG 28 mmol/L; Oxygen Saturation VBG < 60.0 %; PCO2 VBG 50 mmHg (38-50); PO2 VBG 32 mmHg; pH VBG 7.35 (7.36-7.41)
--- NOTE | 2023-08-07 20:32 | CT Scan Report ---
Exam(s): CT HEAD Without Contrast EXAM: CT Head Without Intravenous Contrast CLINICAL HISTORY: Reason for exam: lethargic. TECHNIQUE: Axial computed tomography images of the head/brain without intravenous contrast. CTDI is 37.01 mGy and DLP is 546.36 mGy-cm. Automated exposure control was utilized for the study. A dose lowering technique was utilized adhering to the principles of ALARA. COMPARISON: No relevant prior studies available. FINDINGS: No acute intracranial hemorrhage. No midline shift or mass effect. The territorial cruz-white matter differentiation is maintained throughout. Age-related cerebral volume loss. Periventricular and subcortical white matter hypoattenuation, consistent with chronic microangiopathy. The visualized orbits appear grossly unremarkable. The calvarium is intact. The visualized paranasal sinuses and mastoid air cells are grossly clear. IMPRESSION: No acute intracranial hemorrhage, midline shift, or mass effect. Electronically signed by: Fernando South MD 08/07/23 20:31 PM
--- NOTE | 2023-08-07 21:55 | XRay Report ---
SINGLE VIEW CHEST CLINICAL HISTORY: Sepsis. FINDINGS: An AP, portable, upright chest radiograph is compared to study dated 06/22/2023 and correla [place] with chest CT dated 07/01/2023. The cardiomediastinal silhouette is top normal for projection. Ch ronic interstitial thickening is similar to previous. Suspect trace pleural effusions. There is bibas ilar atelectasis. No airspace consolidation is seen typical for pneumonia. No pneumothorax is seen. T he skeletal structures are osteopenic. There are chronic/healed bilateral rib fractures. Bilateral oulder arthroplasties are in place. IMPRESSION: 1. Suspect trace pleural effusions. 2. There is no airspace consolidation typical for pneumonia. ACT 112: Negative or not required by law. Electronically signed by: Samm Ferrer M.D. 08/07/2023 9:53 PM
--- NOTE | 2023-08-07 22:09 | History & Physical Report ---
Date of Service August 07, 2023 Assessment & Plan (1) Urinary tract infection: Plan: -Grossly infected urinalysis with complaints of urinary symptoms, elevated procalcitonin, meeting sepsis criteria on admission -Ceftriaxone given in ER. Although pt did have lengthy hospital stay about 1.5 months ago, will defer broader coverage for now but with low threshold to expand if she deteriorates. Continue ceftriaxone for now for urosepsis -UCx, BCx pending -Monitor CBC (2) Lethargy: Plan: -Likely secondary to UTI as above -PT/OT ordered for anticipated placement need (3) Acute metabolic encephalopathy: Plan: -Likely due to UTI -Head CT negative -Deferring ammonia testing -Currently at baseline mental status (4) Acute hypoxic respiratory failure: Plan: -Cannot find noted hypoxia for which she was started on 4L NC though was saturating well on RA at time of my evaluation -Likely due to possible CHF exacerbation -Continue to monitor for now -Supplemental O2 as needed (5) HFrEF (heart failure with reduced ejection fraction): Plan: -Possible HFrEF exacerbation contributing to above -Pt does not take any diuretics at home presently -Lasix 40 mg IV daily to start, though low threshold to discontinue diuresis as her dyspnea may be more likely due to deconditioning and weight gain may not necessarily represent fluid retention -BNP added to AM labs -Repeat TTE as last one done in 2020 (6) Elevated troponin: Plan: -Troponin elevated to 22 without any EKG changes of ischemia, no chest pain -Trend troponin to peak -TTE ordered (7) Acute kidney injury: Plan: -Cr 1.28 on admission -RHIANNON superimposed on CKD (unclear stage), though unsure if due to poor oral intake/pre-renal/dehydration vs renal hypoperfusion from CHF-blunted forward flow -Given pt's dyspnea and weight gain as above, will trial Lasix first and closely monitor Cr before adjusting treatment regarding +/- fluid repletion -Monitor BMP (8) Hyperkalemia: Plan: -K 6.1 on admission, without hemodynamic instability or arrhythmia -S/p calcium gluconate 1g, insulin 5u, D50 1 ampule -Holding home KCl, this may have been the culprit -Monitor BMP (9) Hypothyroidism: Plan: -Continue levothyroxine (10) Hypoglycemia: Plan: -BSG 66 on admission -Improved to 193 after D50 administration as part of hyperkalemia management -Monitor BSG (11) Asthma: Plan: -Unlikely to be in exacerbation -Albuterol PRN -Continue Singulair -Currently stable respiratory status on RA (12) GERD (gastroesophageal reflux disease): Plan: -Continue lansoprazole (13) Insomnia: Plan: -Continue nortryptiline (14) Coronary artery disease: Plan: -No ACS concern at present -Noted elevated troponin 22 but no EKG ischemic changes or chest pain -Continue aspirin, carvedilol -Pt not on statin per medication list (15) Hypomagnesemia: Plan: -Mg 1.5 on admission -Repletion ordered -Monitor Mg (16) Anemia: Plan: -Hgb 9.6, MCV 106 -Hgb at baseline -No bleeding concern at present -Continue folic acid -Monitor CBC (17) Depression: Plan: -Continue Lexapro (18) Elevated bilirubin: Plan: -Noted mild elevated hepatobiliary markers though no clinical signs of hyperbilirubinemia -Likely reactive to acute illness -Trend CMP (19) Thrombocytopenia: Plan: -Plts 65 on admission, does appear to be low since 06/2023 -No acute bleeding suspected at present -Mildly elevated coagulation studies -May be consumptive from infection but generally unclear cause, does not appera to be on any medications that would cause this -Monitor CBC Plan FENGI: Low salt, fluid restriction Code status: Full DVT prophylaxis: Heparin SQ BID. Although pt is thrombocytopenic, I believe DVT prophylaxis is more pressing at the moment given bedbound status for past month. We will closely monitor platelets and clinical bleeding signs and adjust orders accordingly. Isolation: None Unit: PCU Disposition planning: Anticipate SNF placement History of Present Illness Chief Complaint: Lethargy Primary Care Provider: Tayla Kent DO Pt is 73 yo F with PMH HFrEF (EF 40-45%), CAD, ischemic cardiomyopathy, HTN, RA, hypothyroidism, GERD, anemia, anxiety, insomnia, asthma presenting with lethargy. at bedside provides supplementary history as pt is not adequate historian. Pt was hospitalized from mid 06/17 to 07/02 at [facility] for sepsis 2/2 C difficile colitis and acute renal failure. She was discharged home with home health services afterward. Pt reports feeling generally unwell since her discharge from hospital and progressive fatigue. Particularly over the last 3 days she has become considerably more lethargic, opting to sleep for much of the day and having little to no appetite. Denies fevers but has had chills and dysuria and urinary frequency with cloudy discoloration of urine. She also reports 12 lbs of unintentional weight gain over the past month and some mild but progressive dyspnea. Reports back pain but nothing beyond her baseline lumbar back pain. Pt has unfortunately been largely bedbound since her discharge and feels he cannot take care of her anymore. He also states her speech has been less comprehensible over the past few days but only mildly so. Pt arrived to ER with borderline BP 92/56, apparent hypoxia prompting 4L NC placement which was later removed by as she did not need it anymore. Initial evaluation significant for Hgb 9.6 (baseline), MCV 106, Plts 65, K 6.1, Cr 1.28, glucose 66 -> 193, Mg 1.5, AST 51, TB 1.5, DB 0.8, ALP 298, troponin 21.6, PCT 5.5. Positive UA, negative head CT, VBG. CXR demonstrates basilar opacities suggesting congestion/edema. ER interventions include calcium gluconate 1g, insulin 5u, dextrose 50% 1 ampule, ceftriaxone 2g IV. On my evaluation, pt denies any new symptoms. Allergies Allergy/AdvReac Type Severity Reaction Status Date / Time doxycycline Allergy Severe Anaphylaxis Verified 08/08/23 10:08 bacitracin Allergy Intermediate Hives, Verified 03/24/23 10:51 blisters clavulanic acid Allergy Intermediate Hives Verified 03/24/23 10:51 diphenhydramine Allergy Intermediate Hives Verified 03/24/23 10:51 iodine Allergy Intermediate Hives Verified 03/24/23 10:51 ketorolac Allergy Intermediate Hives Verified 03/24/23 10:51 meclofenamic acid Allergy Intermediate Hives Verified 03/24/23 10:51 neomycin Allergy Intermediate Hives, Verified 03/24/23 10:51 blisters NSAIDS (Non-Steroidal Allergy Intermediate Hives Verified 03/24/23 10:51 Anti-Inflamma (tolerates Celebrex) oxycodone Allergy Intermediate Hives Verified 03/24/23 10:51 (tolerates Vicodin) polymyxin B Allergy Intermediate Hives, Verified 03/24/23 10:51 blisters quinine Allergy Intermediate Hives Verified 03/24/23 10:51 Sulfa (Sulfonamide Allergy Intermediate Hives Verified 03/24/23 10:51 Antibiotics) tramadol Allergy Intermediate Hives, Verified 03/24/23 10:51 itching adhesive Allergy Mild Rash Verified 03/24/23 10:51 hydroxychloroquine Allergy Mild Rash Verified 03/24/23 10:51 latex Allergy Mild Rash Verified 03/24/23 10:51 methotrexate Allergy Mild Rash Verified 03/24/23 10:51 povidone-iodine Allergy Mild Rash Verified 03/24/23 10:51 meperidine AdvReac Intermediate N/V Verified 03/24/23 10:51 prednisone AdvReac Intermediate Made Verified 03/24/23 10:51 "bones soft" aspirin AdvReac Mild N/V Verified 03/24/23 10:51 Home Medications Medication Instructions Recorded Confirmed Type nitroglycerin 0.4 mg sublingual 0.4 mg sublingual Q5M PRN chest 02/22/21 08/07/23 Rx tablet (Nitrostat) pain #25 tabs calcium carbonate 600 mg-vitamin 1 tab PO QAM 08/24/21 08/07/23 History D3 5 mcg (200 unit) tablet acetaminophen 650 mg 650 mg PO Q8H Pain 12/04/21 08/07/23 History tablet,extended release (Tylenol Arthritis Pain) folic acid 1 mg tablet 1 mg PO QAM 05/24/22 08/07/23 History levothyroxine 75 mcg tablet 75 mcg PO QAM #90 tabs 02/25/23 08/07/23 Rx escitalopram oxalate 20 mg tablet 20 mg PO QAM #90 tabs 02/26/23 08/07/23 Rx (Lexapro) aspirin 81 mg tablet,delayed 81 mg PO QAM #90 tabs 05/20/23 08/07/23 Rx release lansoprazole 15 mg capsule,delayed 15 mg PO QAM #90 caps 05/20/23 08/07/23 Rx release (Prevacid 24Hr) albuterol sulfate 90 mcg/actuation 1 - 2 puff inhalation .Q 4-6 HRS 06/17/23 08/07/23 History aerosol inhaler (Ventolin HFA) PRN shortness of breath or wheezing menthol 0.44 %-zinc oxide 20.6 % 1 applic topical QID PRN skin 07/10/23 08/07/23 Rx topical ointment (Calmoseptine) irritation #113 grams montelukast 10 mg tablet 10 mg PO QAM #90 tabs 07/10/23 08/07/23 Rx (Singulair) nortriptyline 25 mg capsule 25 mg PO HS #90 caps 07/10/23 08/07/23 Rx polyethylene glycol 3350 17 17 g PO DAILY PRN constipation 07/10/23 08/07/23 Rx gram/dose oral powder (Miralax) #119 grams carvedilol 6.25 mg tablet 6.25 mg PO BIDM #180 tabs 07/31/23 08/07/23 Rx potassium chloride 10 mEq 10 meq PO QAM 08/07/23 08/07/23 History tablet,extended release Past Med/Surg History Medical History Diarrhea Abnormal CT of the abdomen Volume overload V-tach Liver abscess History of COVID-19 DX 05/2021 (NO SYMPTOMS>PT STATES WAS A FALSE POSITIVE) Anxiety and depression Cholecystitis with perforation of gallbladder Encounter for pre-operative examination Cholangitis COVID-19 Hypotension Hypoxia Ischemic cardiomyopathy Coronary artery disease Cardiac catheterization -02/22/2021:Impression: 1. Severe CAD involving ostial/proximal LAD (100%), filling via left to left and right to left collaterals. 2. Otherwise nonobstructive CAD involving the mid circumflex. 3. No aortic stenosis. 4. Normal left-sided filling pressure. Anemia Hx of fracture Right shoulder AC joint fracture (10/2020) due to traumatic event > healing without surgical intervention Insomnia Lumbar spinal stenosis Steroid-induced osteoporosis IBS (irritable bowel syndrome) GERD (gastroesophageal reflux disease) Hypothyroidism History of right breast cancer s/p lumpectomy (1969)- no chemo or xrt Rheumatoid arthritis Hyperlipidemia Lumbar facet joint syndrome Sacroiliitis Allergic rhinitis Asthma Hypertension Surgical History History of biopsy Nausea and vomiting after administration of anesthetic agent History of cardiac cath NO - [place] - Dr. Arthur History of ERCP WITH STENT (NOT PRESENT) H/O cataract extraction R/L eye S/P ORIF (open reduction internal fixation) fracture Left ankle H/O arthroscopy of shoulder L shoulder S/p reverse total shoulder arthroplasty Left reverse TSA (02/26/19): Grade view 2, MAC#3, ETT 7 + PNB at [facility] (scope patch used) History of tonsillectomy History of foot surgery R/L History of arthroscopy of left knee History of right knee joint replacement History of total abdominal hysterectomy and bilateral salpingo-oophorectomy d/t endometriosis History of lumpectomy of right breast History of breast biopsy Family History Grandmother (Paternal) Family history of diabetes mellitus Grandmother (Maternal) Family history of diabetes mellitus Father Coronary heart disease Alzheimer disease Myocardial infarction Osteoarthritis COPD (chronic obstructive pulmonary disease) Lung disease Mother Myocardial infarction COPD (chronic obstructive pulmonary disease) Other No family history of adverse response to anesthesia Denies family history of Ovarian cancer Prostate cancer Breast cancer Colorectal cancer Social History Smoking Status: Never smoker Second Hand Exposure: Yes; Do You Dip or Chew Tobacco: No; Hx Alcohol Use: No Hx Substance Use: No Preferred Language: Uzbek Communication Ability: Effective Visual Impairment: No Limitations Hearing Ability: Normal Family Service Worker Required: No Beliefs That Will Affect Care: None marital status: Current Living Situation: Spouse and Family Current Living Situation Comment: Home with family current occupational status: retired How many Children do You have: 2 Feels Safe at Home: Yes Childhood Exposure to Second-Hand Smoke: Yes Diet: regular Diet Comment: regular caffeine: Yes (coffee) during the past year weight has: remained stable Dental Care, Regularly: No Physical Activity Frequency: Daily Physical Activity Frequency Comment: walking indoors Seatbelt Use: always Sunscreen Use: No Assistive Devices: Bedside Commode, Scooter/Electric Scooter and Wheelchair Review of Systems Review of Systems: Per HPI/Subjective Physical Exam Physical Exam: General: tired-appearing, no acute distress HEENT: PERRL, EOMI, conjunctivae clear without injection, anicteric sclerae, moist mucous membranes, clear oropharynx without exudate or erythema Neck: supple, trachea midline, no thyromegaly, no JVD, no cervical lymphadenopathy CV: RRR, normal S1 and S2, no murmurs Resp: Diffuse bibasilar crackles, coarse upper lung sounds, no increased work of breathing, no wheezes Abd: Soft, some suprapubic tenderness, no CVA tenderness, nondistended, no guarding or rebound, no hepatosplenomegaly MSK: Normal bulk of all four extremities Neuro: AOx3, no focal motor or sensory deficits Skin: no rashes or lesions, warm and dry Ext: trace LE peripheral edema or erythema, capillary refill <2s in all four extremities, 2+ LE peripheral pulses b/l Results & Data Results & Data Vital Signs (Past 12 Hours) Vital Signs Temp Pulse Pulse Resp BP Pulse Ox O2 Del Method 08/07/23 19:00 77 15 111/64 96 Nasal Cannula 08/07/23 19:00 74 19 97 Nasal Cannula 08/07/23 18:37 36.4 C 76 17 92/56 L 99 Nasal Cannula 08/07/23 18:37 99 Nasal Cannula 08/07/23 18:37 36.4 C 74 17 98 Nasal Cannula 08/07/23 18:29 75 O2 Flow Rate 08/07/23 19:00 4 08/07/23 19:00 4 08/07/23 18:37 4 08/07/23 18:37 4 08/07/23 18:37 4 08/07/23 18:29 Code Status & VTE Plan VTE Prophylaxis Plan VTE Prophylaxis will be ordered: Yes Supervising Physician Co-Signing Physician Notes Attending addendum: I have physically seen this patient, have supervised the medical residents activities, and agree with the H&P unless as otherwise noted. Assessment and Plan: Hyperkalemia/hypomagnesemia/acute kidney injury- Potassium 6.1 Repeat 4.0 after being given dextrose 50 followed by regular 5 units IV Patient also received calcium gluconate 1 g IV Follow serial renal function and magnesium levels Creatinine 1.28, with baseline 0.51 Magnesium 1.6 on admission, give 2 g magnesium sulfate IV, recheck laboratories in a.m. Urinary tract infection- Follow urine culture and sensitivity Continue ceftriaxone 2 g IV every 24 hours, begun in the ED Acute respiratory failure with hypoxia normal pulse ox on room air at the time of evaluation Improved following initial treatment Nasal cannula oxygen titrate to keep pulse ox around 92-94% HFrEF- The patient will be admitted to telemetry for serial cardiac enzymes, serial EKG's, cardiac rhythm monitoring and a 2-D echocardiogram with Dopplers. Give Lasix 40 mg IV now, then every morning Continue aspirin and carvedilol with hold parameters Remaining orders and notations as noted Resident Activity Tracking Resident Involvement: Resident Care Provided Care Provided: Adult Hospital Medicine (1) Urinary tract infection Hematuria presence: without hematuria Urinary tract infection type: site unspecified Qualified Code(s): N39.0 - Urinary tract infection, site not specified
[2023-08-08] MEDS ORDERED: ALBUTEROL HFA 8 GM INHALER INH PRN (00:09)
[2023-08-08] MEDS ORDERED: ONDANSETRON INJ 2 MG/ML 2 ML VIAL IV PRN (00:09)
[2023-08-08] MEDS ORDERED: ACETAMINOPHEN 325 MG TAB PO PRN (00:09)
[2023-08-08] MEDS: ACETAMINOPHEN 325 MG TAB PO SCH ×4 (01:19→21:10)
[2023-08-08] MEDS: MAGNESIUM SULFATE / D5W 1 GM/100 ML BAG IV SCH ×3 (01:20→05:35)
--- OUTSIDE RECORDS SUMMARY | 2023-08-08 04:52 | External Medical Summary | Summary of Care ---
Author Name Unknown Organization [facility] Address [address] [place] [address] Phone [phone] Care Team Providers Care Newspaper Illustrator Name Role Phone Tayla Kent DO Primary Care Provider [phone] Encounter Details Date Type Department Care Team (Late st Contact Info) Description 07/21/2023 Orders Only Outcomes Research Department [address] [place] [address] Matilde Myers CHRA MyCode Research Other*[id number] Allergies Active Allergy Reactions Criticality Noted Date [...] as of this encounter (statuses as of 07/21/2023) Medications Medication Sig Dispensed Refills Start Date End Date Status SINGULAIR 10 MG PO TABS daily 0 12/16/2008 Active PREVACID 15 MG PO CPDR one tab by mouth daily 0 Active COLACE 100 MG PO CAPS as needed 0 Act toma VENTOLIN HFA 108 (90 BASE) MCG/ACT inhaler As needed 0 11/24/2014 Act toma Ipratropium [place] 0.03 % nasal spray As needed 0 [...] as of this encounter (statuses as of 07/21/2023) Active Problems Problem Noted Date Diagnosed Date Atherosclerosis of coronary artery 08/28/2021 Gastroesophageal reflux disease 08/28/2021 Ischemic cardiomyopathy 08/28/2021 HTN, goal below 140/90 07/07/2009 Overview: Modified per HTN Taxonomy. ADVANCE DIRECTIVE INFORMATION 12/26/2006 Overview: No, Advance Directive brochure offered , patient declined. DISC DIS ICD-IEI-NBAUHQ 11/16/2003 GENERAL OSTEOARTHROSIS 11/16/2003 Hypothyroidism 11/16/2003 Hypopotassemia 11/16/2003 Irritable bowel syndrome 11/16/2003 GENERALIZED ANXIETY DIS 11/16/2003 Dyslipidemia, goal to be determined 11/16/2003 documented as of this encounter (statuses as of 07/21/2023) Resolved Problems Problem Noted Date Diagnosed Date Resolved Date Fungemia 08/28/2021 09/05/2021 Gallbladder perforation 08/28/2021 01/0 12/2021 Hypoglycemia 08/28/2021 09/05/2021 Septic shock 08/25/2021 09/05/2021 Encounter for long-term (cur rent) use of medications 12/23/2011 08/28/2021 Overview: ICD-10 update of inactive term Pain in joint involving lower leg 04/02/2007 08/28/2021 Myalgia and myositis 12/06/2003 021 BENIGN HYPERTENSION 11/16/2003 07/07/20 09 Overview: Modified per HTN Taxonomy. Chronic sinusitis 11/16/2003 08/28/2021 documented as of this encounter (statuses as of 07/21/2023) Immunizations Name Administration Dates Next Due COVID-19 [...] Yes 08/26/2021 documented as of this encounter Plan of Treatment Upcoming Encounters Date Type Department Care Team (Late st Contact Info) Description 12/29/2023 3:40 PM EDT Office Visit Dermatology [address] [place] [address] Tabitha Urban PA-C [address] [place] [address] [place] [phone] Scheduled Orders Name Type Priority Associated Diagnoses Orde r Schedule MYCODE INITIAL ADULT Lab Routine MyCode Research Other*[id number] Expected: 07/21/2023 (Approximate), Expires: 08/09/2024 Health Maintenance Due Date Last Done Comments DXA Scan 1952 Depression Screening 1964 Albumin/Creatinine Ratio 1970 DTaP,Tdap,and Td Vaccines (1 - Tdap) 1971 Cologuard 1997 Fecal Occult Blood Test 1997 Sigmoidoscopy 1997 Mammogram 05/27/2014 05/27/2013, 05/02, 02/20/2012, Additional history exists Zoster Vaccines (2 of 3) 10/27/2014 09/01/2014 TSH 08/28/2022 08/28/2021 GFR 11/16/2022 11/16/2021, 01/2022, 09/05/2021, Additional history exists COVID-19 Vaccine (2022- season) 2023 07/01/2022, 03/01/2022, 07/31/2021, Additional history exists Influenza Vaccine (FLU shot) (#1) 2023 05/24/2020, 06/17/2019, 06/17/2019, Additional history exists Colonoscopy 05/31/2032 05/31/2022 Colorectal Cancer Screening 05/31/2032 Pneumococcal Vaccine: 65+ Years Completed 07/01/2017, 06/15/2015 GARDASIL-HPV IMMUNIZATION SERIES Aged Out No longer eligible based on patient's age to complete this topic Hepatitis B Aged Out No longer eligi ble based on patient's age to complete this topic MENINGOCOCCAL (MENACTRA/MENVEO) Aged Out No longer eligible based on patient's age to complete this topic documented as of this encounter Medical Devices Implanted Type Area Digital Media Strategist Device Identifier Shelf Expiration Date Model / Serial / Lot Lens Intraoc 20.5 - [id number] - [id number] Implanted:Qty : 1 on 03/27/2020 by Jos Gomez MD at OR [facility] [employer] 08/31/2024 [id number] / [id number] / Lens Intraoc 20.5 - [id number] - [id number] Implanted:Qty : 1 on 04/04/2020 by Jos Gomez MD at OR [facility] Left: Eye [employer] 10/01/2024 [id number] / [id number] / [id number] Stent [employer] [id number] - [id number] Implanted:Qty : 1 on 07/23/2021 by Mis Ellison MD at OR [facility] Abdomen [employer] : ENDOSCOPY 05/16/2023 [id number] / / Coral Garnersachi Garcia [id number] - [id number] Implanted:Qty : 1 on 08/25/2021 at [facility] [employer] : DIAGNOSTIC INTERVENTION [id number] 03/23/2024 [id number] / / [id number] Cath Pascual Bazzi 10.2f [id number] - [id number] Implanted:Qty : 1 on 09/21/2021 at [facility] [employer] : DIAGNOSTIC INTERVENTION [id number] 06/26/2024 [id number] / / [id number] Stent Trapezoid 3.0cm 1089 - [id number] Implanted:Qty : 1 on 09/26/2021 by Mis Ellison MD at OR [facility] [employer] : ENDOSCOPY 02/06/2022 [id number] / / [id number] documented as of this encounter Visit Diagnoses Diagnosis MyCode Research Other*[id number] documented in this encounter Advance Directives Latest Code Status on File Code Status Date Activated Date Inactivated Comments Full Code 08/25/2021 5:33 AM 09/06/2021 5:33 PM This order reflects the patients wishes and were consensually agreed upon. Question Answer Comments Discussion of Advance Directives occurred with: Family Care Teams Newspaper Illustrator Relationship Specialty Start Date End Date Tayla Kent DO [address] [facility] [address] [place] [address] PCP - General Family Medicine 03/15/20 documented as of this encounter
[2023-08-08 05:02] LABS: Hematocrit (blood only) 26.3 % (37.0-47.0); Hemoglobin 9.2 g/dl (12.0-16.0); Mean Corpuscular Hemoglobin 36.1 pg (25.0-34.0); Mean Corpuscular Volume 103.1 fL (80.0-100.0); Platelet Count 67 K/uL (130-400); RDW Coefficient of Variation 23.3 % (11.5-14.5); Red Blood Count 2.55 M/uL (4.20-5.40); White Blood Count 9.26 K/ul (4.8-10.8)
[2023-08-08 05:19] LABS: Albumin Globulin Ratio 0.6 (0.9-2); Albumin Level 1.8 gm/dl (3.4-5.0); Bilirubin,Total 1.1 mg/dl (0.2-1.0); Calcium 7.5 mg/dl (8.6-10.3); Creatinine Clr Calc Pharmacy 33.2 ml/min; Est GFR (African American) 45.3 ml/min; Est GFR (Non-African American) 39.1 ml/min; Magnesium 2.2 mg/dl (1.7-2.4); Potassium 5.8 mmol/L (3.5-5.1); Total Protein 4.8 gm/dl (6.0-8.3)
[2023-08-08] MEDS ORDERED: FUROSEMIDE 40 MG/4 ML VIAL IV SCH (09:00)
[2023-08-08] MEDS ORDERED: DEXTROSE 50% 50 ML SYRINGE IV ONE ×2 (10:37→10:59)
[2023-08-08] MEDS ORDERED: GLUCOSE 40% GEL 15 GM TUBE PO PRN (10:41)
[2023-08-08] MEDS ORDERED: CARBOHYDRATES FOR HYPOGLYCEMIA PO PRN (10:41)
[2023-08-08] MEDS ORDERED: GLUCOSE 10 TAB/TUBE PO PRN (10:41)
[2023-08-08] MEDS ORDERED: DEXTROSE 50% 50 ML SYRINGE IV PRN (10:41)
[2023-08-08] MEDS ORDERED: GLUCAGON FOR INJ 1 MG VIAL SQ PRN (10:41)
[2023-08-08] MEDS ORDERED: STAT IV/IM STA (10:47)
[2023-08-08 10:57] LABS: iSTAT Creatinine 1.5 mg/dl (0.6-1.3); iSTAT Hemoglobin 10.2 g/dl (12.0-16.0); iSTAT Ionized Calcium 0.85 mmol/l (1.12-1.32); iSTAT Potassium 6.5 mmol/L (3.3-5.0)
[2023-08-08] MEDS: carvediloL 6.25 MG TAB PO SCH ×2 (11:00→17:55)
[2023-08-08] MEDS: LEVOTHYROXINE SODIUM 75 MCG TABLET PO SCH (11:00)
[2023-08-08] MEDS ORDERED: INSULIN HUMAN REGULAR PER UNIT 10 UNITS in SYRINGE 9.9 ML IV ONE ×2 (11:00→18:15)
[2023-08-08] MEDS: MONTELUKAST SODIUM 10 MG TABLET PO SCH (11:00)
[2023-08-08] MEDS: HEPARIN SOD 5,000 UNIT/0.5 ML VIAL SQ SCH ×2 (11:00→21:10)
[2023-08-08] MEDS: ESCITALOPRAM OXALATE 20 MG TAB PO SCH (11:00)
[2023-08-08] MEDS: PANTOprazole 40 MG TAB PO SCH (11:00)
[2023-08-08] MEDS: FOLIC ACID 1 MG TAB PO SCH (11:00)
[2023-08-08] MEDS ORDERED: CALCIUM GLUCONATE 10% 1,000 MG in SODIUM CHLOR 0.9% MINI-B 50 ML IV ONE (11:00)
[2023-08-08] MEDS: ASPIRIN 81 MG ECTAB PO SCH (11:00)
[2023-08-08] MEDS ORDERED: SODIUM CHLORIDE 0.9% 250 ML IV ONE (11:20)
[2023-08-08] MEDS ORDERED: SODIUM CHLORIDE 0.9% 1,000 ML IV SCH (11:30)
[2023-08-08] MEDS ORDERED: CALCIUM GLUCONATE 1000 MG/60 ML NSS IV ONE (11:35)
[2023-08-08] MEDS ORDERED: CHERRY SYRUP 5 ML UDP PO SCH (12:00)
[2023-08-08] MEDS: VANCOMYCIN HCL 500 MG/10 ML SOLN PO SCH ×2 (12:02→21:09)
[2023-08-08 12:06] LABS: iSTAT Arterial Blood Gas HCO3 23 meg/L (19-24); iSTAT Arterial Blood Gas pCO2 33 mmHg (35-46); iSTAT Arterial Blood Gas pH 7.45 (7.35-7.45); iSTAT Arterial Blood Gas pO2 36 mmHg (80-95); iSTAT Carbon Dioxide 24 mmol/L (24-31); iSTAT Hematocrit 20 % (37-47); iSTAT Hemoglobin 6.8 g/dl (12.0-16.0); iSTAT Potassium 5.3 mmol/L (3.3-5.0); iSTAT Sodium 126 mmol/L (135-144)
[2023-08-08] MEDS ORDERED: LACTULOSE SYRUP 30 GM/45 ML UDP PO SCH (12:15)
--- NOTE | 2023-08-08 12:31 | Electrocardiogram Report ---
Test Reason : Blood Pressure : / mmHG Vent. Rate : 076 BPM Atrial Rate : 076 BPM P-R Int : 234 ms QRS Dur : 158 ms QT Int : 480 ms P-R-T Axes : 032 -16 142 degrees QTc Int : 540 ms Sinus rhythm with 1st degree A-V block Left bundle branch block Abnormal ECG When compared with ECG of 21-JUN-2023 07:47, Premature supraventricular complexes are no longer Present OK interval has increased Left bundle branch block is now Present Minimal criteria for Anteroseptal infarct are no longer Present Confirmed by Ghassan Natarajan ([id number]) on 08/08/2023 12:30:35 PM Referred By: REFERRED SELF Confirmed By:Ghassan Natarajan
--- NOTE | 2023-08-08 13:27 | XCELERA ---
[id number] \\[facility]\[email or web address]_PDF_Reports\[id number]}___[id number]
--- NOTE | 2023-08-08 14:48 | Hospitalist Progress Note ---
Date of Service August 08, 2023 Assessment & Plan (1) Urinary tract infection: Plan: Pt is a 73 yo female with PMH of ventricular tachycardia, liver abscess, CAD, IBS, RA, and HLD presenting to the hospital due to SOB and lethargy. Acute metabolic encephalopathy - head CT neg upon admission - most likely secondary to elevated ammonia - NG placed successfully after 1 lactulose enema given; will give lactulose q4hr until BM adequate and then will decrease frequency Hyperkalemia - K 6.1 on admission, without hemodynamic instability or arrhythmia; given calcium gluconate, insulin, and D50 - AM K down to 5.8, but ISTAT K obtained due to AMS back up to 6.5; received another calcium gluconate, insulin, and D50 - K still elevated so pt received another insulin/D50; since EKG w/o acute changes will hold on further calcium gluconate - increased IVF to NS w/ D10 150 mL/hr - monitor with BMP q4hr RHIANNON - Cr 1.28 on admission; baseline WNL 0.6-0.8 - most likely pre-renal secondary to poor oral intake - continue IVF with NS w/ D10 at 150 mL/hr - d/t minimal RHIANNON in the setting of persistent hyperkalemia and original metabolic acidosis, consult nephro for further eval (?RTA) Hypoglycemia - BS 66 on admission; no documented hx of DM - BS continues to decrease w/o support most likely secondary to nutrition status - addition of D10 to fluids; continue IVF with NS w/ D10 at 150 mL/hr Chronic anemia - Hgb at baseline upon admission - POC Hgb showed 6.8; repeat Hgb 8.9 - nurse noted blood with enema administration - continue to monitor CBC Urosepsis - UA grossly infected with complaints of urinary symptoms, elevated procalcitonin, meeting sepsis criteria on admission; urine cx growing gram neg bacilli - blood cx pending - continue ceftriaxone - in the setting of recent C. diff infection; will add PO vanco for ppx (although d/t AMS pt unable to take at this point) Acute hypoxic respiratory failure - pt originally came in on 4L for hypoxia but no documented hypoxia - pt has remained on RA since admission HFrEF - appears stable as echo showed no significant change since 2020: EF 40-45% - do not believe this is contributing to pt's presenting respiratory status Elevated troponin - upon admission, 21.6 - has peaked and downtrended - suspect demand in the setting of acute illness/AMS CAD - no acute concerns; no symptoms, no EKG changes, troponin downtrended - continue aspirin and carvedilol (no statin per medication list) when pt able Elevated bilirubin - appears acute; 2 prior instances noted in chart - pt has extensive biliary/hepatic hx including liver abscess and biliary stents - AST minimally elevated, ALT WNL; alk phos also elevated - continue to monitor Thrombocytopenia - plts 65 on admission, does appear to be low since 06/2023 - mildly elevated coagulation studies; may be consumptive from infection but also may be related to suspected underlying liver disease - continue to monitor Chronic conditions: will resume medications as able Insomnia: nortriptyline Hypothyroidism: levothyroxine GERD: lansoprazole Depression: lexapro Asthma: singulair, albuterol PRN Diet: low salt Code: full VTE ppx: heparin SQ BID Dispo: PCU, pt not medically stable; anticipate SNF placement once stable (2) Lethargy: (3) Acute metabolic encephalopathy: (4) Acute hypoxic respiratory failure: (5) HFrEF (heart failure with reduced ejection fraction): (6) Elevated troponin: (7) Acute kidney injury: (8) Hyperkalemia: (9) Hypoglycemia: (10) Asthma: (11) GERD (gastroesophageal reflux disease): (12) Insomnia: (13) Coronary artery disease: (14) Hypomagnesemia: (15) Anemia: (16) Depression: (17) Elevated bilirubin: (18) Thrombocytopenia: Admission and Anticipated Discharge Date Admission Date: August 07, 2023 Supervising Physician Co-Signing Physician Notes I personally examined the patient and verified all corbett points of history and exam, discussed case, and agree with decision making with Dr Peraza No meaningful HPI review of systems obtainable todaypatient seen multiple times. Unresponsive every time. Sometimes opens eyes, other times really has just been laying there with minimal response other than groaning to sternal rub. notes this is how she was yesterday which is why he brought her in. Notes that he has been struggling more to take care of her and felt that she will need long-term placement. Vitals noted, in general she is laying in bed minimally responsiveearlier in the day she would close her eyes to bright light, later in the day groaning to sternal rub. See resident physician documentation for her multiple exams and encounters with the patient through the day as well. Cardio distant but regular lungs clear no rales rhonchi or wheezes with reasonable spontaneous effort at times, somewhat apneic at other times. Abdomen soft nondistended no apparent tenderness guarding rebound or rigidity. Skin without rashes pallor or icterus. Encephalopathyappears to be hepatic and metabolichepatic encephalopathy tagging back to ammonia of 110lactulose (through the day initially given that she was unresponsive definitely not able to take p.o., unable to place NG tube, lactulose enemas initiatedof course with her unresponsiveness she was not really able to retain, but attempting nonetheless; later in the day on retrial NG tube was able to be inserted and lactulose will be switched to NG instead of enema) metabolic encephalopathy related to urinary tract infection see below. I checked an ABG due to concerns with her breathing, her pulse ox's have been fine, the ABG was actually a venous sample in the end, but fortunately did not show hypercapnia nonetheless. In that respect while her breathing has appeared at times apneic at the bedside, fortunately she seems to have good oxygenation and ventilationcontinue to monitor closely, but I anticipate this will improve as we improve especially the hepatic portion of her encephalopathy. Dehydration/RHIANNON/hyperkalemianot entirely clear why her potassium is so disproportionately elevated compared to her volume contractionshe does take potassium at home, but only 10 mEq. She is not really acidotic although we did entertain the possibility of a type IV RTA, this seems unlikely. Managing with IV fluids, now that we are able to effectively get the lactulose in her, I suspect lactulose induced bowel movements will also improve her potassium. EKG is pending. She has had insulin and dextrose as well as calcium gluconate. Continue to follow basic metabolic panel every 4 hours. I suspect she has chronic liver diseaseit appears that other physicians have entertained the suspicion as well, to the point of thinking that it would be worthwhile to get of a liver biopsy given that the situation is not clear but a lot of signs point to itfrom my perspective, her elevated ammonia, markedly low albumin/mildly elevated INR/mildly elevated bilirubin/low platelets/previous liver imaging all give me high suspicion. Certainly there are alternate explanations for all of these (not the least of which would be severe chronic malnutrition) but underlying liver disease would certainly tie everything together. Low blood pressures/transient hypotensionwhile we had a hemoglobin [id number] suggesting acute anemia, fortunately once we were able to obtain venous sampling, her hemoglobin is basically stable from her recent baseline, so I suspect that the blood pressure issues relate to dehydration/hypovolemia, compounded by third spacing from her hypoalbuminemia from the likely both severe protein malnutrition and what appears to likely be chronic liver disease. DVT prophylaxisheparin subcugiven her immobility and venous stasis, risk/benefit favors continuing heparin subcu for now with close monitoring UTIceftriaxone Recent C. difficilegiven that she requires ceftriaxone, will give vancomycin Otherwise as above Probably the better part of 2 hours spent in patient care today, at least 30 minutes of which was critical care time periodically throughout the day on multiple visits and an extended amount of time on chart review and clinical problem solving. Subjective Pt seen at bedside this AM. Mostly unresponsive to voice and physical stimuli- she does open her eyes briefly when talked to. Otherwise, no conversation. Called to bedside later in the AM by nurse due to unresponsiveness and pale color. Arrived at bedside to find pt similar appearing to the AM- BS at that time low and replenished with no improvement in mental status. ISTAT and troponin drawn which showed elevated K 6.5, Cr 1.5. Pt treated with calcium, insulin, and dextrose. An ammonium level also ordered. Code purple called later due to agonal respirations reported by the nurse. Pt similar in appearance to earlier in the morning. Ammonia level came back elevated and tx with lactulose initiated. ABG obtained which was WNL but did show Hgb 6.8. Repeat CBC and CMP ordered. Review of Systems Review of Systems: Unobtainable due to reduced consciousness Physical Exam Physical Exam: Constitutional: pale, ill appearing, lethargic HEENT: normocephalic, no conjunctival injection CV: RRR, no murmur, 1+ pitting bilateral UE and LE edema Respiratory: CTA bilaterally. No rhonchi, wheezes, or crackles. No increased work of breathing GI: soft, nondistended, nontender, + bowel sounds MSK: no gross deformities noted Skin: warm, dry, no rashes Neuro: lethargic, unresponsive to voice, does open eyes to sternal rub Results & Data Results & Data Vital Signs (Past 12 Hours) Vital Signs Temp Pulse Pulse Resp BP BP Pulse Ox 08/08/23 14:20 36.5 C 86 16 110/72 97 08/08/23 13:32 86 20 95 08/08/23 13:32 103/66 08/08/23 13:30 83 21 93 08/08/23 13:30 82/59 L 08/08/23 13:20 84 14 94 08/08/23 13:15 84 14 94 08/08/23 13:15 81/59 L 08/08/23 13:10 84 16 94 08/08/23 13:00 81/58 L 08/08/23 13:00 86 14 94 08/08/23 12:50 89 20 93 08/08/23 12:45 81/63 L 08/08/23 12:45 87 16 93 08/08/23 12:40 88 13 93 08/08/23 12:30 94/70 L 08/08/23 12:30 90 18 94 08/08/23 12:20 92 H 21 08/08/23 12:16 91 H 16 08/08/23 12:16 100/69 08/08/23 12:10 88 21 08/08/23 12:01 87 16 93 08/08/23 12:01 90/58 L 08/08/23 12:00 87 17 93 08/08/23 11:50 86 19 95 08/08/23 11:40 85 18 95 08/08/23 11:36 85 21 92 08/08/23 11:36 116/74 08/08/23 11:30 84 12 93 08/08/23 11:20 85 15 86 L 08/08/23 11:10 99/61 L 08/08/23 11:10 80 12 94 08/08/23 11:00 97/61 L 08/08/23 11:00 79 12 94 08/08/23 10:50 78 12 94 08/08/23 10:40 79 17 93 08/08/23 10:30 80 14 95 08/08/23 10:27 81 16 95 08/08/23 10:27 121/80 08/08/23 10:20 82 18 96 08/08/23 10:10 79 15 96 08/08/23 10:00 82 20 96 08/08/23 10:00 117/89 08/08/23 09:50 80 18 95 08/08/23 09:40 77 13 95 08/08/23 09:30 78 14 95 08/08/23 09:20 85 23 96 08/08/23 09:10 83 20 96 08/08/23 09:00 113/80 08/08/23 09:00 79 17 08/08/23 09:00 08/08/23 09:00 80 18 113/80 95 08/08/23 06:56 72 08/08/23 06:00 72 18 102/68 96 08/08/23 03:07 78 17 106/69 96 O2 Del Method 08/08/23 14:20 Room Air 08/08/23 13:32 08/08/23 13:32 08/08/23 13:30 08/08/23 13:30 08/08/23 13:20 08/08/23 13:15 08/08/23 13:15 08/08/23 13:10 08/08/23 13:00 08/08/23 13:00 08/08/23 12:50 08/08/23 12:45 08/08/23 12:45 08/08/23 12:40 08/08/23 12:30 08/08/23 12:30 08/08/23 12:20 08/08/23 12:16 08/08/23 12:16 08/08/23 12:10 08/08/23 12:01 08/08/23 12:01 08/08/23 12:00 08/08/23 11:50 08/08/23 11:40 08/08/23 11:36 08/08/23 11:36 08/08/23 11:30 08/08/23 11:20 08/08/23 11:10 08/08/23 11:10 08/08/23 11:00 08/08/23 11:00 08/08/23 10:50 08/08/23 10:40 08/08/23 10:30 08/08/23 10:27 08/08/23 10:27 08/08/23 10:20 08/08/23 10:10 08/08/23 10:00 08/08/23 10:00 08/08/23 09:50 08/08/23 09:40 08/08/23 09:30 08/08/23 09:20 08/08/23 09:10 08/08/23 09:00 08/08/23 09:00 08/08/23 09:00 Room Air 08/08/23 09:00 Room Air 08/08/23 06:56 08/08/23 06:00 Room Air 08/08/23 03:07 Room Air Resident Activity Tracking Resident Involvement: Resident Care Provided Care Provided: Adult Hospital Medicine (1) Urinary tract infection Hematuria presence: without hematuria Urinary tract infection type: site unspecified Qualified Code(s): N39.0 - Urinary tract infection, site not specified
[2023-08-08] MEDS: LACTULOSE 200GM/700ML WTR ENEMA PR SCH ×2 (15:55→17:54)
[2023-08-08 16:09] LABS: Albumin Level 1.6 gm/dl (3.4-5.0); Bilirubin,Total 1.1 mg/dl (0.2-1.0); Calcium 7.4 mg/dl (8.6-10.3); Potassium 6.2 mmol/L (3.5-5.1)
[2023-08-08 16:12] LABS: Albumin Globulin Ratio 0.5 (0.9-2); Creatinine Clr Calc Pharmacy 32.2 ml/min; Est GFR (African American) 43.7 ml/min; Est GFR (Non-African American) 37.7 ml/min; Total Protein 4.6 gm/dl (6.0-8.3)
[2023-08-08] MEDS ORDERED: DEXTROSE 50% 50 ML SYRINGE IV STA ×2 (16:33→18:04)
[2023-08-08] MEDS ORDERED: SODIUM CHLORIDE 0.9% IV SCH (16:35)
[2023-08-08] MEDS ORDERED: DEXTROSE 10% IV SCH (16:35)
[2023-08-08 17:51] LABS: Basophils # (auto) 0.01 K/uL (0.00-0.20); Basophils % (auto) 0.1 %; Eosinophils # (auto) 0.02 K/uL (0.00-0.50); Eosinophils % (auto) 0.2 %; Hematocrit (blood only) 25.8 % (37.0-47.0); Hemoglobin 8.9 g/dl (12.0-16.0); Immature Granulocytes # (auto) 0.06 K/uL (0.01-0.20); Immature Granulocytes % (auto) 0.6 %; Lymphocytes # (auto) 1.71 K/uL (1.20-3.40); Lymphocytes % (auto) 15.8 %; Mean Corpuscular Hemoglobin 35.6 pg (25.0-34.0); Mean Corpuscular Hgb Conc 34.5 g/dL (32.0-36.0); Mean Corpuscular Volume 103.2 fL (80.0-100.0); Mean Platelet Volume 12.7 fL (9.4-12.4); Monocytes # (auto) 0.88 K/uL (0.11-0.59); Monocytes % (auto) 8.1 %; Neutrophils # (auto) 8.12 K/uL (1.40-6.50); Neutrophils % (auto) 75.2 %; Platelet Count 80 K/uL (130-400); RDW Coefficient of Variation 23.6 % (11.5-14.5); RDW Standard Deviation 87.7 fL (36.4-46.3)
[2023-08-08] MEDS: D10 NSS IV SCH (17:55)
[2023-08-08] MEDS ORDERED: ACETAMINOPHEN 1,000 MG/100 ML VIAL IV PRN (17:57)
[2023-08-08 18:17] LABS: Anisocytosis Present; Schistocytes 1+
--- NOTE | 2023-08-08 18:41 | Billing Data ---
Date of Service August 08, 2023 Coding Level of Care Code 96913 CRITICAL CARE
[2023-08-08] MEDS ORDERED: LACTULOSE SYRUP 30 GM/45 ML UDP NG STA (18:53)
--- NOTE | 2023-08-08 18:53 | XRay Report ---
KUB CLINICAL HISTORY: Confirmation of NGT placement COMPARISON STUDY: CT of the abdomen and pelvis June 19, 2023. KUB June 21, 2023. FINDINGS: The tip of the nasogastric tube is within the body of the stomach. The bowel gas pattern is normal. No urinary calculi identified. IMPRESSION: 1. Tip of nasogastric tube within the body of the stomach. 2. No radiographic evidence for a bowel obstruction. ACT 112: Negative or not required by law. Electronically signed by: Rodney Gilbert M.D. 08/08/2023 6:52 PM
[2023-08-08] MEDS ORDERED: cefTRIAXone SODIUM 2,000 MG in DEXTROSE 5 % MINI-B 50 ML IV SCH (20:00)
[2023-08-08] MEDS: LACTULOSE SYRUP 30 GM/45 ML UDP PO SCH (20:27)
[2023-08-08] MEDS ORDERED: NORTRIPTYLINE HCL 25 MG CAP PO SCH (21:00)
[2023-08-08] MEDS ORDERED: LACTULOSE SYRUP 30 GM/45 ML UDP NG SCH (21:00)
[2023-08-08 22:34] LABS: BUN Creatinine Ratio 14.8 (10-20); Calcium 7.5 mg/dl (8.6-10.3); Creatinine Clr Calc Pharmacy 30.3 ml/min; Est GFR (African American) 40.5 ml/min; Potassium 5.5 mmol/L (3.5-5.1)
[2023-08-08] MEDS ORDERED: Nursing to Pharmacy Communication SCH (23:00)
[2023-08-08] MEDS ORDERED: LACTATED RINGER'S 250 ML IV ONE (23:27)
[2023-08-08] MEDS ORDERED: ALBUMIN 25% 25 GM/100 ML VIAL IV ONE (23:27)
[2023-08-09] MEDS ORDERED: ALBUTEROL 0.083% NEBU SOLN 3 ML VIAL NEB STA ×2 (00:33→04:42)
[2023-08-09] MEDS ORDERED: ALBUTEROL 0.083% NEBU SOLN 3 ML VIAL ONE ×2 (00:40→04:44)
[2023-08-09] MEDS ORDERED: ALBUTEROL 0.5% NEB SOLN 2.5 MG/0.5 ML VIAL NEB STA (01:13)
[2023-08-09] MEDS ORDERED: methylPREDNISolone 125 MG in SYRINGE 0 ML IV STA (01:29)
[2023-08-09 01:39] LABS: iSTAT Allen Test Pass; iSTAT Art Bld Gas pCO2 Correct 23 mmHg (35-46); iSTAT Art Bld Gas pH Corrected 7.498 (7.35-7.45); iSTAT Arterial Blood Gas HCO3 18 meg/L (19-24); iSTAT Arterial Blood Gas pCO2 24 mmHg (35-46); iSTAT Arterial Blood Gas pH 7.49 (7.35-7.45); iSTAT Arterial Blood Gas pO2 67 mmHg (80-95); iSTAT Arterial Blood Gas pO2 C 63; iSTAT Carbon Dioxide 19 mmol/L (24-31); iSTAT Hematocrit 24 % (37-47); iSTAT Hemoglobin 8.2 g/dl (12.0-16.0); iSTAT Potassium 5.4 mmol/L (3.3-5.0); iSTAT Site L Radial; iSTAT Sodium 136 mmol/L (135-144)
[2023-08-09] MEDS: D10 NSS IV SCH ×3 (01:39→16:01)
[2023-08-09] MEDS: LACTULOSE SYRUP 30 GM/45 ML UDP PO SCH ×7 (01:40→23:53)
[2023-08-09] MEDS ORDERED: STAT IV/IM STA (02:01)
[2023-08-09] MEDS ORDERED: ALBUMIN 25% 25 GM/100 ML VIAL IV ONE ×2 (02:01→04:52)
[2023-08-09 02:02] LABS: Albumin Level 2.9 gm/dl (3.4-5.0); Bilirubin,Total 1.1 mg/dl (0.2-1.0); Calcium 7.7 mg/dl (8.6-10.3); Potassium 5.8 mmol/L (3.5-5.1)
[2023-08-09] MEDS ORDERED: LACTULOSE SYRUP 30 GM/45 ML UDP PO STA (02:07)
[2023-08-09 02:08] LABS: Albumin Globulin Ratio 1.1 (0.9-2); BUN Creatinine Ratio 14.5 (10-20); Creatinine Clr Calc Pharmacy 29.7 ml/min; Est GFR (African American) 39.6 ml/min; Est GFR (Non-African American) 34.1 ml/min; Globulin 2.6 gm/dl (2.5-4.0); Total Protein 5.5 gm/dl (6.0-8.3)
[2023-08-09] MEDS ORDERED: PIPER/TAZO 4.5g in D5W MINI-B 100 ML IV STA (02:26)
[2023-08-09] MEDS: SODIUM BICARBONATE 8.4% 75 MEQ in SODIUM CHLORIDE 0.45 % 1,000 ML IV SCH ×2 (02:33→16:00)
[2023-08-09] MEDS: VANCOMYCIN HCL 500 MG/10 ML SOLN PO SCH ×5 (02:33→23:52)
[2023-08-09 04:15] LABS: BUN Creatinine Ratio 13.8 (10-20); Calcium 7.9 mg/dl (8.6-10.3); Creatinine Clr Calc Pharmacy 28.2 ml/min; Est GFR (African American) 37.2 ml/min; Est GFR (Non-African American) 32.1 ml/min; Magnesium 2.5 mg/dl (1.7-2.4); Potassium 5.6 mmol/L (3.5-5.1)
[2023-08-09 04:31] LABS: Hematocrit (blood only) 20.9 % (37.0-47.0); Mean Corpuscular Hemoglobin 36.1 pg (25.0-34.0); Mean Corpuscular Hgb Conc 33.5 g/dL (32.0-36.0); Mean Corpuscular Volume 107.7 fL (80.0-100.0); Mean Platelet Volume 13.2 fL (9.4-12.4); Platelet Count 67 K/uL (130-400); RDW Coefficient of Variation 23.1 % (11.5-14.5); RDW Standard Deviation 89.8 fL (36.4-46.3); Red Blood Count 1.94 M/uL (4.20-5.40); White Blood Count 7.73 K/ul (4.8-10.8)
[2023-08-09 04:32] LABS: Anisocytosis Present; Basophils # (auto) 0.01 K/uL (0.00-0.20); Basophils % (auto) 0.1 %; Hypochromasia Present; Immature Granulocytes # (auto) 0.03 K/uL (0.01-0.20); Immature Granulocytes % (auto) 0.4 %; Lymphocytes # (auto) 1.28 K/uL (1.20-3.40); Lymphocytes % (auto) 16.6 %; Monocytes # (auto) 0.61 K/uL (0.11-0.59); Monocytes % (auto) 7.9 %; Platelet Estimate Decreased (Normal)
[2023-08-09] MEDS ORDERED: RAPID SEQUENCE INDUCTION BAG ONE (04:36)
[2023-08-09] MEDS ORDERED: FUROSEMIDE 40 MG/4 ML VIAL IV ONE ×2 (04:52)
[2023-08-09] MEDS ORDERED: ACETYLCYSTEINE 10% INHAL SOLN 4 ML **DISPENSED BY RESP. INH SCH (05:00)
[2023-08-09 05:37] LABS: iSTAT Allen Test Pass; iSTAT Art Bld Gas pCO2 Correct 25 mmHg (35-46); iSTAT Art Bld Gas pH Corrected 7.477 (7.35-7.45); iSTAT Arterial Blood Gas HCO3 19 meg/L (19-24); iSTAT Arterial Blood Gas pCO2 26 mmHg (35-46); iSTAT Arterial Blood Gas pH 7.47 (7.35-7.45); iSTAT Arterial Blood Gas pO2 90 mmHg (80-95); iSTAT Arterial Blood Gas pO2 C 87; iSTAT Carbon Dioxide 19 mmol/L (24-31); iSTAT FiO2 50 %; iSTAT Hematocrit 20 % (37-47); iSTAT Hemoglobin 6.8 g/dl (12.0-16.0); iSTAT Potassium 5.5 mmol/L (3.3-5.0); iSTAT Site L Radial; iSTAT Sodium 138 mmol/L (135-144)
[2023-08-09] MEDS: ACETAMINOPHEN 325 MG TAB PO SCH (05:44)
[2023-08-09] MEDS: LEVOTHYROXINE SODIUM 75 MCG TABLET PO SCH (05:44)
[2023-08-09] MEDS ORDERED: Nursing to Pharmacy Communication SCH (05:45)
--- NOTE | 2023-08-09 05:49 | Billing Data ---
Date of Service August 09, 2023 Coding Level of Care Code 61197 INT INP/OBS CARE
--- NOTE | 2023-08-09 07:11 | Electrocardiogram Report ---
Test Reason : Blood Pressure : / mmHG Vent. Rate : 089 BPM Atrial Rate : 063 BPM P-R Int : 000 ms QRS Dur : 118 ms QT Int : 442 ms P-R-T Axes : 000 -22 142 degrees QTc Int : 537 ms Poor data quality, interpretation may be adversely affected Sinus rhythm with 1st degree AV block Left bundle branch block Low voltage QRS Abnormal ECG Confirmed by Pratik Corrales ([id number]) on 08/09/2023 7:11:26 AM Referred By: REFERRED SELF Confirmed By:Slade Corrales
[2023-08-09 07:50] LABS: BUN Creatinine Ratio 13.8 (10-20); Calcium 7.9 mg/dl (8.6-10.3); Est GFR (African American) 37.2 ml/min; Est GFR (Non-African American) 32.1 ml/min; Potassium 5.6 mmol/L (3.5-5.1)
--- NOTE | 2023-08-09 08:09 | XRay Report ---
XR chest 1V portable HISTORY: c/f infection COMPARISON: Chest 08/07/2023. FINDINGS: There are low lung volumes. No pneumothorax. Nasogastric tube terminates in the stomach. Bi lateral total shoulder arthroplasties are noted. The heart is mildly enlarged. There is mild central pulmonary vascular congestion without overt edema. Small right pleural effusion. Bibasilar densities favor subsegmental atelectasis. A hiatal hernia is noted. IMPRESSION: 1. Cardiomegaly and mild congestive change. 2. Small right pleural effusion. 3. Bibasilar linear densities favor subsegmental atelectasis.. 4. Nasogastric tube terminates in the stomach. ACT 112: Negative or not required by law. Electronically signed by: Azael Pinto M.D. 08/09/2023 8:07 AM
--- NOTE | 2023-08-09 08:53 | CT Scan Report ---
HEAD CT NONCONTRAST CT DOSE: HISTORY: Confusion. r/o infarct TECHNIQUE: Multiaxial CT images of the head were performed without the use of intravenous contrast. A utomated exposure control was utilized for this study. A dose lowering technique was utilized adheri ng to the principles of ALARA. Comparison: Head CT 08/07/2023. Findings: Metallic artifact from the patient's overlying monitoring leads. The paranasal sinuses and mastoid air cells are clear. The calvarium and skull base are intact. There is no mass, hematoma, mid line shift, acute infarct. White matter hypodensity is nonspecific but suggestive of microvascular is chemic change. The ventricles and sulci demonstrate mild age-related involutional changes. Impression: No acute intracranial abnormality. ACT 112: Negative or not required by law. Electronically signed by: Azael Pinto M.D. 08/09/2023 8:51 AM
--- NOTE | 2023-08-09 09:02 | CT Scan Report ---
CT chest diagnostic wo con CT DOSE: HISTORY: Confusion. Assess for aspiration pneumonia. TECHNIQUE: Multiaxial CT images of the chest were performed without contrast. A dose lowering techni que was utilized adhering to the principles of ALARA. COMPARISON: Chest CTA 07/01/2023. FINDINGS: Mucoid material seen within the trachea and mainstem bronchi. There is partial opacificatio n of the bilateral lower lobe bronchi. Nasogastric tube terminates in the stomach. No pneumothorax. S mall bilateral pleural effusions. Interlobular septal thickening consistent with pulmonary edema. The re are additional scattered patchy groundglass airspace opacities within the lungs most pronounced on the right. This could be due to the pulmonary edema or a superimposed pneumonia. Consolidation withi n the bilateral lower lobes posteriorly are nonspecific but could represent atelectasis or pneumonia. There are bilateral total shoulder arthroplasties. There is respiratory motion artifact. Old, healed bilateral rib fractures are noted. Old sternal fracture. Nonunited left scapular fracture again note d. Chronic compression fractures within the thoracic and lumbar spine again noted. No acute fractures . Mild body wall edema. Suspect right hilar lymphadenopathy. This may be reactive. No additional or l eft hilar lymphadenopathy. The abdominal structures will be reported on the same day abdomen and pelv is CT. The heart remains mildly enlarged. No pericardial effusion. Calcified plaque within the du ry arteries. IMPRESSION: 1. Nasogastric tube terminates in the stomach. 2. Pulmonary edema and small bilateral pleural effusions. 3. Partial mucoid opacification of the trachea and bronchi with bibasilar lower lobe densities. This may represent atelectasis or pneumonia. 4. Additional patchy groundglass airspace opacities within the lungs may be due to the pulmonary genesis a or a superimposed pneumonia. 5. Additional findings as described above. ACT 112: Negative or not required by law. Electronically signed by: Azael Pinto M.D. 08/09/2023 9:01 AM
--- NOTE | 2023-08-09 09:09 | CT Scan Report ---
ABDOMEN AND PELVIS CT WITHOUT CONTRAST CT DOSE: 2742.25 mGy.cm HISTORY: Confusion. Fever. TECHNIQUE: Multiaxial CT images of the abdomen and pelvis were performed without contrast. A dose lo wering technique was utilized adhering to the principles of ALARA. COMPARISON STUDY: Abdomen and pelvis CT 06/19/2023. FINDINGS: Small bilateral pleural effusions and bibasilar densities are better appreciated on the fermin e day chest CT. The heart remains mildly enlarged. There is mild interstitial pulmonary edema. A naso gastric tube terminates in the distal stomach. No pneumoperitoneum. No pneumatosis. Old compression d eformities again noted within the lumbar spine. Moderate body wall edema is noted. This has slightly progressed. A few hypodense lesions within the liver remain unchanged and favor cysts. The unenhanced spleen, adrenal glands, pancreas are unremarkable. No renal stones or hydronephrosis. No retroperito mark lymphadenopathy. Normal caliber abdominal aorta. The gallbladder appears contracted. Exophytic p rominence again noted within the interpolar left kidney without definite lesion. This difficult to as sess on this noncontrast study. This remains unchanged. Small amount of ascites. The bladder is decom pressed by Olrd catheter. Prior hysterectomy. Suboptimal evaluation for bowel pathology due to the l ack of intravenous and oral contrast. However, no dilated loops of bowel to suggest an obstruction. F luid-filled small and large bowel seen throughout the abdomen. This suggests a diarrheal illness/albino roenteritis. No definite bowel wall thickening. IMPRESSION: 1. Fluid-filled nondilated loops of large and small bowel seen throughout the abdomen. This favors a gastroenteritis/diarrheal illness. 2. Colonic diverticulosis. No evidence for acute diverticulitis. 3. Moderate ascites and moderate body wall edema. 4. Pulmonary edema and small bilateral pleural effusions. 5. Bibasilar densities are better present on the same day chest CT. 6. The nasogastric tube terminates in the distal stomach. 7. Additional findings as described above. ACT 112: Negative or not required by law. Electronically signed by: Azael Pinto M.D. 08/09/2023 9:07 AM
[2023-08-09] MEDS: ESCITALOPRAM OXALATE 20 MG TAB PO SCH (09:50)
[2023-08-09] MEDS: ASPIRIN 81 MG ECTAB PO SCH (09:51)
[2023-08-09] MEDS: FOLIC ACID 1 MG TAB PO SCH (09:51)
[2023-08-09] MEDS: PANTOprazole 40 MG TAB PO SCH (09:51)
[2023-08-09] MEDS: carvediloL 6.25 MG TAB PO SCH ×2 (09:51→15:59)
[2023-08-09] MEDS: MONTELUKAST SODIUM 10 MG TABLET PO SCH (09:51)
[2023-08-09] MEDS: HEPARIN SOD 5,000 UNIT/0.5 ML VIAL SQ SCH (09:52)
[2023-08-09] MEDS: PIPERACILLIN/TAZOBACTAM 4.5 GM in DEXTROSE 5% MINI-B 100 ML IV SCH ×2 (09:52→18:27)
--- NOTE | 2023-08-09 09:58 | Hospitalist Progress Note ---
Date of Service August 09, 2023 Assessment & Plan (1) Urinary tract infection: Plan: Pt is a 73 yo female with PMH of ventricular tachycardia, liver abscess, CAD, IBS, RA, and HLD presenting to the hospital due to SOB and lethargy. Pt has continued to deteriorate overnight and into today. Her prognosis at this point is very poor. Discussed with family ( and [id number]) at bedside. They appear to understand the gravity of pt's medical situation. Acute metabolic encephalopathy - head CT neg upon admission; elevated ammonia - no improvement in mentation after several doses of lactulose; will continue until tomorrow to see if there is any appreciable improvement- if not, will discuss GOC further with family Hyperkalemia - K 6.1 on admission, without hemodynamic instability or arrhythmia; s/p calcium gluconate x2, insulin/dextrose x3, and IVF - now stable RHIANNON - Cr 1.28 on admission; baseline WNL 0.6-0.8 - Cr continue to increase despite administration of IVF and albumin; pt is intravascularly completed and third spacing - nephro consulted Hypoglycemia - BS 66 on admission; no documented hx of DM - BS continues to decrease w/o support most likely secondary to nutrition status - continue to replete as necessary Chronic anemia - Hgb at baseline upon admission; has now decreased but stabilized - no signs of active bleeding - continue to monitor CBC Urosepsis - UA grossly infected with complaints of urinary symptoms, elevated procalcitonin, meeting sepsis criteria on admission; urine cx growing ESBL - blood cx neg - d/c ceftriaxone; start zosyn - will give PO vanco as ppx d/t recent C. diff infection Acute hypoxic respiratory failure - pt originally came in on 4L for hypoxia but no documented hypoxia - pt placed on BIPAP overnight d/t mild desats to 87/88; has remained on RA this AM HFrEF - appears stable as echo showed no significant change since 2020: EF 40-45% - CT chest showed evidence of pulmonary edema and pulmonary effusions Elevated troponin - upon admission, 21.6 - has peaked and downtrended - suspect demand in the setting of acute illness/AMS CAD - no acute concerns; no symptoms, no EKG changes, troponin downtrended - continue aspirin and carvedilol (no statin per medication list) when pt able Elevated bilirubin - appears acute; 2 prior instances noted in chart - pt has extensive biliary/hepatic hx including liver abscess and biliary stents - AST minimally elevated, ALT WNL; alk phos also elevated - continue to monitor Thrombocytopenia - plts 65 on admission, does appear to be low since 06/2023 - mildly elevated coagulation studies; may be consumptive from infection but also may be related to suspected underlying liver disease - continue to monitor Chronic conditions: will resume medications if able Insomnia: nortriptyline Hypothyroidism: levothyroxine GERD: lansoprazole Depression: lexapro Asthma: singulair, albuterol PRN Diet: low salt Code: DNR/DNI VTE ppx: heparin SQ BID Dispo: PCU (2) Lethargy: (3) Acute metabolic encephalopathy: (4) Acute hypoxic respiratory failure: (5) HFrEF (heart failure with reduced ejection fraction): (6) Elevated troponin: (7) Acute kidney injury: (8) Hyperkalemia: (9) Hypoglycemia: (10) Asthma: (11) GERD (gastroesophageal reflux disease): (12) Insomnia: (13) Coronary artery disease: (14) Hypomagnesemia: (15) Anemia: (16) Depression: (17) Elevated bilirubin: (18) Thrombocytopenia: Admission and Anticipated Discharge Date Admission Date: August 07, 2023 Supervising Physician Co-Signing Physician Notes I personally examined the patient and verified all corbett points of history and exam, discussed case, and agree with decision making with Dr Peraza No meaningful HPI review of systems obtainable from patient. and [id number] present at the bedside, updated to the best of my ability and answered all of their questions. Outlined unfortunately likely an enormous acute on chronic illness burden and a very poor prognosis. Vitals noted, she is laying in bed unresponsive, eyes are open. Breathing is unlabored, skin is pale, exam otherwise as above. CBC, BMP, CT scans noted. Encephalopathyappears to be hepatic and metabolichepatic encephalopathy tagging back to ammonia elevationlactulosebut unfortunately even with an NG tube in place and being able to give her enteral lactulose rather than the very briefly retained enemas, her ammonia levels have still been going up and her encephalopathy only appears to be worsening. Increased frequency of lactulose, ongoing supportive care. Metabolic encephalopathy related to urinary tract infection, see below. Dehydration/RHIANNON/hyperkalemianot entirely clear why her potassium is so disproportionately elevated compared to her volume contractionshe does take potassium at home, but only 10 mEq. She is not really acidotic although we did entertain the possibility of a type IV RTA, this seems unlikely. Continue IV fluids. Unfortunately with her marked hypoalbuminemiadue to acute on chronic malnutrition/liver disease/bothshe seems to be third spacing almost as much as she is retaining fluid in the vasculature. I suspect she has chronic liver diseaseit appears that other physicians have entertained the suspicion as well, to the point of thinking that it would be worthwhile to get of a liver biopsy given that the situation is not clear but a lot of signs point to itfrom my perspective, her elevated ammonia, markedly low albumin/mildly elevated INR/mildly elevated bilirubin/low platelets/previous liver imaging all give me high suspicion. Certainly there are alternate explanations for all of these (not the least of which would be severe chronic malnutrition) but underlying liver disease would certainly tie everything together. Low blood pressures/transient hypotensionhemoglobin continues to be erraticwhile we are continuing with aggressive care she may end up requiring a transfusion, managing with fluids and albumin for now, family aware that with her marked hypoalbuminemia, she is third spacing rapidly. DVT prophylaxisheparin subcuon hold for now given drop in hemoglobin UTIESBLnow on Zosyn Recent C. difficilegiven that she requires ceftriaxone, giving vancomycin for prophylaxis Very poor prognosis, outlined the overall acute on chronic illness burden that I can see for the patient's and [id number]. They expressed an u nderstanding, seemed to have an awareness that she was very ill chronically, but the acuity unfortunately seems to have caught him off guard. I discussed unfortunately frankly that she may not survive this hospitalization no matter what we are able to do, and they expressed a good understanding of that. In discussion of aggressive care versus comfort care, right now they would like to continue with aggressive care other than things that might cause her sufferingto which and we discussed CODE STATUS and they felt it most appropriate (as to why) to change her to a DNR. Otherwise as above Subjective Pt had a code purple overnight due to agonal breathing patterns. She was given lasix 40 mg x1 and albumin x3. Head CT, chest CT, and CTAP were ordered by night team. Pt nonresponsive this AM- eyes open spontaneously with no meaningful movement. Breathing regular. Appears comfortable. Review of Systems Review of Systems: Unobtainable due to reduced consciousness Physical Exam Physical Exam: Constitutional: pale, ill appearing, lethargic HEENT: normocephalic, no conjunctival injection, random eye movement CV: RRR, no murmur, 1+ pitting bilateral UE and LE edema Respiratory: No rhonchi, wheezes, or crackles. No increased work of breathing GI: soft, nondistended, nontender MSK: no gross deformities noted Skin: warm, dry, no rashes Neuro: lethargic, unresponsive, no meaningful movements Results & Data Results & Data Vital Signs (Past 12 Hours) Vital Signs Temp Pulse Pulse Resp BP BP Pulse Ox 08/09/23 08:02 82 16 98 08/09/23 06:00 74 0 L 08/09/23 05:22 86 0 L 124/88 100 08/09/23 05:12 86 0 L 132/78 100 08/09/23 05:06 85 0 L 132/82 100 08/09/23 05:00 84 0 L 133/98 100 08/09/23 04:55 84 0 L 134/87 100 08/09/23 04:50 81 0 L 125/82 100 08/09/23 04:50 80 22 98 08/09/23 04:49 80 22 98 08/09/23 04:45 81 0 L 130/77 100 08/09/23 04:40 77 13 117/62 93 08/09/23 04:37 75 13 91/67 L 92 08/09/23 04:35 74 14 94/52 L 87 L 08/09/23 04:33 73 14 86/59 L 88 L 08/09/23 04:02 79 13 104/74 94 08/09/23 03:58 35.7 C L 08/09/23 03:00 80 15 98 08/09/23 02:01 88 26 H 123/90 99 08/09/23 01:35 86 26 H 95 08/09/23 01:01 88 20 105/70 100 08/09/23 01:00 89 21 100 08/09/23 00:59 89 22 94 08/09/23 00:30 88 18 97 08/09/23 00:08 85 08/09/23 00:01 85 17 107/84 98 08/09/23 00:00 85 15 97 08/08/23 23:46 36.2 C L 08/08/23 23:30 80 0 L 95 08/08/23 23:22 83/60 L 08/08/23 23:00 79 0 L 81/54 L 95 08/08/23 22:31 81 0 L 81/62 L 97 08/08/23 22:12 85 12 99 08/08/23 22:12 91/65 L 08/08/23 22:04 85 17 100 08/08/23 22:02 83 13 87 L 08/08/23 22:01 85 18 99 08/08/23 22:01 77/55 L 08/08/23 22:00 85 18 99 O2 Del Method FiO2 08/09/23 08:02 21 08/09/23 06:00 08/09/23 05:22 08/09/23 05:12 08/09/23 05:06 08/09/23 05:00 08/09/23 04:55 08/09/23 04:50 08/09/23 04:50 BiPAP 40 08/09/23 04:49 40 08/09/23 04:45 08/09/23 04:40 08/09/23 04:37 08/09/23 04:35 08/09/23 04:33 08/09/23 04:02 08/09/23 03:58 08/09/23 03:00 08/09/23 02:01 08/09/23 01:35 Room Air 08/09/23 01:01 08/09/23 01:00 08/09/23 00:59 Room Air 08/09/23 00:30 08/09/23 00:08 08/09/23 00:01 08/09/23 00:00 08/08/23 23:46 08/08/23 23:30 08/08/23 23:22 08/08/23 23:00 08/08/23 22:31 08/08/23 22:12 08/08/23 22:12 08/08/23 22:04 08/08/23 22:02 08/08/23 22:01 08/08/23 22:01 08/08/23 22:00 (1) Urinary tract infection Hematuria presence: without hematuria Urinary tract infection type: site u nspecified Qualified Code(s): N39.0 - Urinary tract infection, site not specified
[2023-08-09 11:58] LABS: BUN Creatinine Ratio 13.4 (10-20); Calcium 8.1 mg/dl (8.6-10.3); Creatinine Clr Calc Pharmacy 26.1 ml/min; Est GFR (African American) 34.1 ml/min; Est GFR (Non-African American) 29.4 ml/min; Potassium 5.9 mmol/L (3.5-5.1)
[2023-08-09 12:19] LABS: Anisocytosis Present; Echinocytes 1+; Hematocrit (blood only) 21.3 % (37.0-47.0); Hemoglobin 7.3 g/dl (12.0-16.0); Immature Granulocytes # (auto) 0.06 K/uL (0.01-0.20); Immature Granulocytes % (auto) 0.6 %; Lymphocytes # (auto) 0.86 K/uL (1.20-3.40); Mean Corpuscular Hemoglobin 35.6 pg (25.0-34.0); Mean Corpuscular Hgb Conc 34.3 g/dL (32.0-36.0); Mean Corpuscular Volume 103.9 fL (80.0-100.0); Mean Platelet Volume 12.8 fL (9.4-12.4); Monocytes # (auto) 0.43 K/uL (0.11-0.59); Neutrophils # (auto) 9.39 K/uL (1.40-6.50); Neutrophils % (auto) 87.4 %; Platelet Count 67 K/uL (130-400); Platelet Estimate Decreased (Normal); Polychromasia 1+; RDW Coefficient of Variation 23.4 % (11.5-14.5); RDW Standard Deviation 87.6 fL (36.4-46.3); Red Blood Count 2.05 M/uL (4.20-5.40); Target Cells 1+; Tear Drop Cells 2+; White Blood Count 10.74 K/ul (4.8-10.8)
--- NOTE | 2023-08-09 14:13 | Nephrology Consultation ---
Date of Consultation August 09, 2023 Assessment & Plan (1) Acute kidney injury: Non-oliguric but urine output reduced. Etiology not entirely clear. Kidney are unobstructed on CT scan. Disconcerting findings of MOSF. Clinical presentation suggests likely ATN. DDx includes TMA (TTP-HUS findings noted but less consistent with classic enterohemorrhagic E coli). Peripheral smear requested. I would also maintain a high-degree of suspicion for HRS1. Baseline creatinine appears to be <0.5 mg/dL. Medications are appropriately dosed for kidney function. (2) Hyperkalemia: Improved with medical management. Suspect this is a manifestation of RHIANNON and potassium supplements. I cannot exclude a component of adrenal insufficiency. Emergent hydrocortisone 100 mg IV was provided. Hydrocortisone 50 mg Q 6 hours ordered to follow initial bolus. (3) Acute UTI: ESBL Klebsiella pneumonia sensitive to Zosyn. Remains on Zosyn. (4) Hepatic encephalopathy: Lactulose therapy is being provided. (5) Hypothyroidism: If there is an appreciable response to hydrocortisone or laboratory evidence of adrenal insufficiency, aggressive thyroid replacement will be required with management. (6) Thrombocytopenia: Prior evaluation for DIC was not consistent with consumptive coagulopathy. Possible TMA cannot be excluded. This has been chronic and likely manifestation of underlying liver disease. (7) Anemia: Peripheral smear requested to evaluate possible TMA. [id number] to follow. Findings are not typical of classifical (8) Ischemic cardiomyopathy: (9) Rheumatoid arthritis: History of Present Illness Reason for Consultation: hyperkalemia, ?RTA Requesting Physician: Arun Christianson DO Attending Physician: Arun Christianson DO History of Present Illness Tammy Caceres is a 73 year-old female with a history of coronary artery disease, ischemic cardiomyopathy (LVEF 40-45%), hypothyroidism, rheumatoid arthritis, and chronic liver disease. She was admitted to [facility] in June with c diff colitis. She has a history of diverticulitis, complications during treatment for gallstones in the past including liver abscess and vtach arrest, as well as a documented history of steroid induced osteoporosis. Tammy presented to [facility] yesterday with lethargy. Nephrology consultation was requested for hyperkalemia and acute kidney injury. The patient was seen and evaluated in the ICU this afternoon with Dr. Peraza. I also obtained history and reviewed the plan of care with the patient's family and Dr. Christianson. The family has expressed a desire to maintain comfort. They have opted not to escalate care. They were receptive to checking some additional labs and starting empiric hydrocortisone. Tammy's and [id number] were at the bedside at the time of my evaluation. Tammy is unable to provide history. She was obtunded/unresponsive at the time of my assessment. Her breathing is unlabored. She is mildly hypotensive in normal sinus rhythm. No focal neurologic deficits were appreciated on gross assessment. Her describes deconditioning and increased dependance following her recent hospitalization but a notable sudden decline in the past 48 hours. She was brought to the hospital with increasing weakness. Evaluation demonstrating evidence of sepsis with possible pneumonia and urinary tract infection. Laboratory evaluation notable for acute on chronic anemia and thrombocytopenia. Also, hyperkalemia, hyponatremia, and hypoglycemia. Poor nutrition has been a concern for some time. Urine output has been reduced. Baseline creatinine in the past <0.5 mg/dL. Creatinine was ~1.2 mg/dL following recent hospitalization and 1.6 mg/dL today. Tammy has a lactic acidosis, elevated NH4+ as well as findings of decompensated liver disease. Her condition is unfortunately poor and overall prognosis very poor. She has not had signs of active bleeding. She is being treated with Zosyn for UTI. Allergies Allergy/AdvReac Type Severity Reaction Status Date / Time doxycycline Allergy Severe Anaphylaxis Verified 08/08/23 10:08 bacitracin Allergy Intermediate Hives, Verified 03/24/23 10:51 blisters clavulanic acid Allergy Intermediate Hives Verified 03/24/23 10:51 diphenhydramine Allergy Intermediate Hives Verified 03/24/23 10:51 iodine Allergy Intermediate Hives Verified 03/24/23 10:51 ketorolac Allergy Intermediate Hives Verified 03/24/23 10:51 meclofenamic acid Allergy Intermediate Hives Verified 03/24/23 10:51 neomycin Allergy Intermediate Hives, Verified 03/24/23 10:51 blisters NSAIDS (Non-Steroidal Allergy Intermediate Hives Verified 03/24/23 10:51 Anti-Inflamma (tolerates Celebrex) oxycodone Allergy Intermediate Hives Verified 03/24/23 10:51 (tolerates Vicodin) polymyxin B Allergy Intermediate Hives, Verified 03/24/23 10:51 blisters quinine Allergy Intermediate Hives Verified 03/24/23 10:51 Sulfa (Sulfonamide Allergy Intermediate Hives Verified 03/24/23 10:51 Antibiotics) tramadol Allergy Intermediate Hives, Verified 03/24/23 10:51 itching adhesive Allergy Mild Rash Verified 03/24/23 10:51 hydroxychloroquine Allergy Mild Rash Verified 03/24/23 10:51 latex Allergy Mild Rash Verified 03/24/23 10:51 methotrexate Allergy Mild Rash Verified 03/24/23 10:51 povidone-iodine Allergy Mild Rash Verified 03/24/23 10:51 meperidine AdvReac Intermediate N/V Verified 03/24/23 10:51 prednisone AdvReac Intermediate Made Verified 03/24/23 10:51 "bones soft" aspirin AdvReac Mild N/V Verified 03/24/23 10:51 Home Medications Medication Instructions Recorded Confirmed Type nitroglycerin 0.4 mg sublingual 0.4 mg sublingual Q5M PRN chest 02/22/21 08/07/23 Rx tablet (Nitrostat) pain #25 tabs calcium carbonate 600 mg-vitamin 1 tab PO QAM 08/24/21 08/07/23 History D3 5 mcg (200 unit) tablet acetaminophen 650 mg 650 mg PO Q8H Pain 12/04/21 08/07/23 History tablet,extended release (Tylenol Arthritis Pain) folic acid 1 mg tablet 1 mg PO QAM 05/24/22 08/07/23 History levothyroxine 75 mcg tablet 75 mcg PO QAM #90 tabs 02/25/23 08/07/23 Rx escitalopram oxalate 20 mg tablet 20 mg PO QAM #90 tabs 02/26/23 08/07/23 Rx (Lexapro) aspirin 81 mg tablet,delayed 81 mg PO QAM #90 tabs 05/20/23 08/07/23 Rx release lansoprazole 15 mg capsule,delayed 15 mg PO QAM #90 caps 05/20/23 08/07/23 Rx release (Prevacid 24Hr) albuterol sulfate 90 mcg/actuation 1 - 2 puff inhalation .Q 4-6 HRS 06/17/23 08/07/23 History aerosol inhaler (Ventolin HFA) PRN shortness of breath or wheezing menthol 0.44 %-zinc oxide 20.6 % 1 applic topical QID PRN skin 07/10/23 08/07/23 Rx topical ointment (Calmoseptine) irritation #113 grams montelukast 10 mg tablet 10 mg PO QAM #90 tabs 07/10/23 08/07/23 Rx (Singulair) nortriptyline 25 mg capsule 25 mg PO HS #90 caps 07/10/23 08/07/23 Rx polyethylene glycol 3350 17 17 g PO DAILY PRN constipation 07/10/23 08/07/23 Rx gram/dose oral powder (Miralax) #119 grams carvedilol 6.25 mg tablet 6.25 mg PO BIDM #180 tabs 07/31/23 08/07/23 Rx potassium chloride 10 mEq 10 meq PO QAM 08/07/23 08/07/23 History tablet,extended release Patient History Medical History (Updated 08/09/23 @ 15:38 by Ady Gaitan DO) V-tach Liver abscess History of COVID-19 DX 05/2021 (NO SYMPTOMS>PT STATES WAS A FALSE POSITIVE) Anxiety and depression Cholecystitis with perforation of gallbladder Ischemic cardiomyopathy Coronary artery disease Cardiac catheterization -02/22/2021:Impression: 1. Severe CAD involving ostial/proximal LAD (100%), filling via left to left and right to left collaterals. 2. Otherwise nonobstructive CAD involving the mid circumflex. 3. No aortic stenosis. 4. Normal left-sided filling pressure. Anemia Hx of fracture Right shoulder AC joint fracture (10/2020) due to traumatic event > healing without surgical intervention Insomnia Lumbar spinal stenosis Steroid-induced osteoporosis IBS (irritable bowel syndrome) GERD (gastroesophageal reflux disease) Hypothyroidism History of right breast cancer s/p lumpectomy (1969)- no chemo or xrt Rheumatoid arthritis Hyperlipidemia Lumbar facet joint syndrome Sacroiliitis Allergic rhinitis Asthma Hypertension Surgical History History of biopsy Nausea and vomiting after administration of anesthetic agent History of cardiac cath NO - [place] [facility] History of ERCP WITH STENT (NOT PRESENT) H/O cataract extraction R/L eye S/P ORIF (open reduction internal fixation) fracture Left ankle H/O arthroscopy of shoulder L shoulder S/p reverse total shoulder arthroplasty Left reverse TSA (02/26/19): Grade view 2, MAC#3, ETT 7 + PNB at [facility] (scope patch used) History of tonsillectomy History of foot surgery R/L History of arthroscopy of left knee History of right knee joint replacement History of total abdominal hysterectomy and bilateral salpingo-oophorectomy d/t endometriosis History of lumpectomy of right breast History of breast biopsy Family History Grandmother (Paternal) Family history of diabetes mellitus Grandmother (Maternal) Family history of diabetes mellitus Father Coronary heart disease Alzheimer disease Myocardial infarction Osteoarthritis COPD (chronic obstructive pulmonary disease) Lung disease Mother Myocardial infarction COPD (chronic obstructive pulmonary disease) Other No family history of adverse response to anesthesia Denies family history of Ovarian cancer Prostate cancer Breast cancer Colorectal cancer Social History Smoking Status: Never smoker Second Hand Exposure: Yes; Do You Dip or Chew Tobacco: No; Hx Alcohol Use: No Hx Substance Use: No Preferred Language: Brazilian Communication Ability: Effective Visual Impairment: No Limitations Hearing Ability: Normal Advisor Consultant Required: No Beliefs That Will Affect Care: None marital status: Current Living Situation: Spouse and Family Current Living Situation Comment: Home with family current occupational status: retired How many Children do You have: 2 Feels Safe at Home: Yes Childhood Exposure to Second-Hand Smoke: Yes Diet: regular Diet Comment: regular caffeine: Yes (coffee) during the past year weight has: remained stable Dental Care, Regularly: No Physical Activity Frequency: Daily Physical Activity Frequency Comment: walking indoors Seatbelt Use: always Sunscreen Use: No Assistive Devices: Bedside Commode, Scooter/Electric Scooter and Wheelchair Review of Systems Review of Systems: Unobtainable due to cognitive status Physical Exam Constitutional: + ill appearing, + altered mental status , + frail appearing and + underweight Eyes: + anicteric sclerae; pupils not irregula r and normal pupil size ENMT: Mouth: + dry oral mucous membranes; no oral mucosal abnormality NGT Neck: normal visual inspection and trachea midline; no tracheal deviation Respiratory: normal respiratory effort Auscultation: lungs clear to auscultation bilaterally, + diminished lung sounds and + rales Cardiovascular: Rate/Rhythm: regular rate Heart Sounds: normal S1 and normal S2 Extremities: + edema (dependent edema of UE and LE, soft and non-pitting) Gastrointestinal (Abdomen): Inspection/Auscultation: + abdomen distended and normal bowel sounds Percussion/Palpation: abdomen soft Musculoskeletal: Extremities: no cyanosis and no clubbing Skin: + dry skin; no jaundice Neurologic: + obtunded Motor/Sensory: no fascicul ations Comatose Patient: no decerebrate rigidity and no decorticate rigidity Results & Data Vital Signs (Past 12 Hours) Vital Signs Temp Pulse Pulse Resp BP Pulse Ox O2 Del Method 08/09/23 11:22 Room Air 08/09/23 10:45 85 21 129/80 93 08/09/23 10:30 87 32 H 111/67 92 08/09/23 10:15 86 27 H 120/90 96 08/09/23 10:00 86 26 H 121/81 93 08/09/23 09:45 86 27 H 129/86 93 08/09/23 09:30 86 26 H 119/80 94 08/09/23 09:15 84 20 123/82 99 08/09/23 09:00 83 17 125/94 95 08/09/23 08:37 84 15 130/66 94 08/09/23 08:02 82 16 98 08/09/23 07:31 82 0 L 146/93 H 100 08/09/23 07:00 90/57 L 08/09/23 06:00 74 0 L 08/09/23 05:22 86 0 L 124/88 100 08/09/23 05:12 86 0 L 132/78 100 08/09/23 05:06 85 0 L 132/82 100 08/09/23 05:00 84 0 L 133/98 100 08/09/23 04:55 84 0 L 134/87 100 08/09/23 04:50 81 0 L 125/82 100 08/09/23 04:50 80 22 98 BiPAP 08/09/23 04:49 80 22 98 08/09/23 04:45 81 0 L 130/77 100 08/09/23 04:40 77 13 117/62 93 08/09/23 04:37 75 13 91/67 L 92 08/09/23 04:35 74 14 94/52 L 87 L 08/09/23 04:33 73 14 86/59 L 88 L 08/09/23 04:02 79 13 104/74 94 08/09/23 03:58 35.7 C L 08/09/23 03:00 80 15 98 FiO2 08/09/23 11:22 08/09/23 10:45 08/09/23 10:30 08/09/23 10:15 08/09/23 10:00 08/09/23 09:45 08/09/23 09:30 08/09/23 09:15 08/09/23 09:00 08/09/23 08:37 08/09/23 08:02 21 08/09/23 07:31 08/09/23 07:00 08/09/23 06:00 08/09/23 05:22 08/09/23 05:12 08/09/23 05:06 08/09/23 05:00 08/09/23 04:55 08/09/23 04:50 08/09/23 04:50 40 08/09/23 04:49 40 08/09/23 04:45 08/09/23 04:40 08/09/23 04:37 08/09/23 04:35 08/09/23 04:33 08/09/23 04:02 08/09/23 03:58 08/09/23 03:00 Laboratory Results Laboratory Results - last 24 hr 08/08/23 08/08/23 08/08/23 15:14 16:29 16:30 WBC Cancelled RBC Cancelled Hgb Cancelled POC Hgb Hct Cancelled POC Hct MCV Cancelled MCH Cancelled MCHC Cancelled RDW Std Deviation Cancelled RDW Coeff of Ender Cancelled Plt Count Cancelled MPV Cancelled Immature Gran % (Auto) Cancelled Neut % (Auto) Cancelled Lymph % (Auto) Cancelled [place] % (Auto) Cancelled Eos % (Auto) Cancelled Baso % (Auto) Cancelled Neut # (Auto) Cancelled Lymph # (Auto) Cancelled [place] # (Auto) Cancelled Eos # (Auto) Cancelled Baso # (Auto) Cancelled Immature Gran # (Auto) Cancelled Absolute Nucleated RBC Cancelled Nucleated RBC % (auto) Cancelled Neutrophils % (Manual) Cancelled Band Neutrophils % Cancelled Lymphocytes % (Manual) Cancelled Prolymphocyte % Cancelled Reactive Lymphs % (Man) Cancelled Monocytes % (Manual) Cancelled Eosinophils % (Manual) Cancelled Basophils % (Manual) Cancelled Metamyelocytes % (Man) Cancelled Myelocytes % (Man) Cancelled Promyelocytes % (Man) Cancelled Blast Cells % (Manual) Cancelled Plasma Cell % (Manual) Cancelled Other Cells % Cancelled Nucleated RBC % Cancelled Neutrophils # (Manual) Cancelled Band Neutrophils # Cancelled Total Absolute Neuts Cancelled Lymphocytes # (Manual) Cancelled Prolymphocyte # Cancelled Reactive Lymphs # Cancelled Total Abs Lymphocytes Cancelled Monocytes # (Manual) Cancelled Eosinophils # (Manual) Cancelled Basophils # (Manual) Cancelled Metamyelocytes # (Man) Cancelled Myelocytes # (Manual) Cancelled Promyelocytes # (Man) Cancelled Blast Cells # (Man) Cancelled Plasma Cell # (Manual) Cancelled Other Cells # Cancelled Nucleated RBCs # (Man) Cancelled Hypersegmented Neuts Cancelled Hyposegmented Neuts Cancelled Hypogranular Neuts Cancelled Large Granular Lymphs Cancelled # Lrg Granular Lymphs Cancelled Hairy Cells Cancelled Smudge Cells Cancelled Toxic Granulation Cancelled Toxic Vacuolation Cancelled Dohle Bodies Cancelled Fe Rods Cancelled Platelet Estimate Cancelled Hypogranular Platelets Cancelled Giant Platelets Cancelled Platelet Satelliting Cancelled RBC Morphology Cancelled Polychromasia Cancelled Hypochromasia Cancelled Poikilocytosis Cancelled Basophilic Stippling Cancelled Anisocytosis Cancelled Microcytosis Cancelled Macrocytosis Cancelled Spherocytes Cancelled Pappenheimer Bodies Cancelled Sickle Cells Cancelled Target Cells Cancelled Tear Drop Cells Cancelled Ovalocytes Cancelled Stomatocytes Cancelled [place] Bodies Cancelled Echinocytes Cancelled Acanthocytes (Spur) Cancelled Rouleaux Cancelled RBC Agglutinates Cancelled Schistocytes Cancelled Sezary Cell Cancelled Sample Site POC pH POC pCO2 POC pO2 POC HCO3 POC Total CO2 POC Base Excess ABG pH (Temp Correct) ABG pCO2 (Temp Corrct POC ABG pO2 at Pt Temp POC ABG O2 Sat [place] Test O2 Delivery Device POC O2 Rate POC FiO2 IPAP POC Sodium Sodium 133 L POC Potassium Potassium 6.2 H* Chloride 105 Carbon Dioxide 23 Anion Gap 5 BUN 21 Creatinine 1.40 H Est Cr Clr Drug Dosing 32.2 Est GFR ( Amer) 43.7 Est GFR (Non-Af Amer) 37.7 BUN/Creatinine Ratio 15.0 Glucose 61 L POC Glucose 47 L* 55 L* Lactate Calcium 7.4 L Magnesium Total Bilirubin 1.1 H AST 60 H ALT 18 Alkaline Phosphatase 298 H Ammonia Total Protein 4.6 L Albumin 1.6 L Globulin 3.0 Albumin/Globulin Ratio 0.5 L Procalcitonin Nasal Screen MRSA (PCR) Blood Parasites ID Cancelled Blood Type Antibody Screen 08/08/23 08/08/23 08/08/23 16:54 17:31 18:42 WBC 10.80 RBC 2.50 L Hgb 8.9 L POC Hgb Hct 25.8 L POC Hct MCV 103.2 H MCH 35.6 H MCHC 34.5 RDW Std Deviation 87.7 H RDW Coeff of Ender 23.6 H Plt Count 80 L MPV 12.7 H Immature Gran % (Auto) 0.6 Neut % (Auto) 75.2 Lymph % (Auto) 15.8 [place] % (Auto) 8.1 Eos % (Auto) 0.2 Baso % (Auto) 0.1 Neut # (Auto) 8.12 H Lymph # (Auto) 1.71 [place] # (Auto) 0.88 H Eos # (Auto) 0.02 Baso # (Auto) 0.01 Immature Gran # (Auto) 0.06 Absolute Nucleated RBC Nucleated RBC % (auto) Neutrophils % (Manual) Band Neutrophils % Lymphocytes % (Manual) Prolymphocyte % Reactive Lymphs % (Man) Monocytes % (Manual) Eosinophils % (Manual) Basophils % (Manual) Metamyelocytes % (Man) Myelocytes % (Man) Promyelocytes % (Man) Blast Cells % (Manual) Plasma Cell % (Manual) Other Cells % Nucleated RBC % Neutrophils # (Manual) Band Neutrophils # Total Absolute Neuts Lymphocytes # (Manual) Prolymphocyte # Reactive Lymphs # Total Abs Lymphocytes Monocytes # (Manual) Eosinophils # (Manual) Basophils # (Manual) Metamyelocytes # (Man) Myelocytes # (Manual) Promyelocytes # (Man) Blast Cells # (Man) Plasma Cell # (Manual) Other Cells # Nucleated RBCs # (Man) Hypersegmented Neuts Hyposegmented Neuts Hypogranular Neuts Large Granular Lymphs # Lrg Granular Lymphs Hairy Cells Smudge Cells Toxic Granulation Toxic Vacuolation Dohle Bodies Fe Rods Platelet Estimate Hypogranular Platelets Giant Platelets Platelet Satelliting RBC Morphology Polychromasia Hypochromasia Poikilocytosis Basophilic Stippling Anisocytosis Present Microcytosis Macrocytosis Spherocytes Pappenheimer Bodies Sickle Cells Target Cells Tear Drop Cells Ovalocytes Stomatocytes [place] Bodies Echinocytes Acanthocytes (Spur) Rouleaux RBC Agglutinates Schistocytes 1+ Sezary Cell Sample Site POC pH POC pCO2 POC pO2 POC HCO3 POC Total CO2 POC Base Excess ABG pH (Temp Correct) ABG pCO2 (Temp Corrct POC ABG pO2 at Pt Temp POC ABG O2 Sat [place] Test O2 Delivery Device POC O2 Rate POC FiO2 IPAP POC Sodium Sodium POC Potassium Potassium Chloride Carbon Dioxide Anion Gap BUN Creatinine Est Cr Clr Drug Dosing Est GFR ( Amer) Est GFR (Non-Af Amer) BUN/Creatinine Ratio Glucose POC Glucose 153 H 121 H Lactate Calcium Magnesium Total Bilirubin AST ALT Alkaline Phosphatase Ammonia Total Protein Albumin Globulin Albumin/Globulin Ratio Procalcitonin Nasal Screen MRSA (PCR) Blood Parasites ID Blood Type Antibody Screen 08/08/23 08/08/23 08/08/23 19:41 21:56 22:12 WBC RBC Hgb POC Hgb Hct POC Hct MCV MCH MCHC RDW Std Deviation RDW Coeff of Ender Plt Count MPV Immature Gran % (Auto) Neut % (Auto) Lymph % (Auto) [place] % (Auto) Eos % (Auto) Baso % (Auto) Neut # (Auto) Lymph # (Auto) [place] # (Auto) Eos # (Auto) Baso # (Auto) Immature Gran # (Auto) Absolute Nucleated RBC Nucleated RBC % (auto) Neutrophils % (Manual) Band Neutrophils % Lymphocytes % (Manual) Prolymphocyte % Reactive Lymphs % (Man) Monocytes % (Manual) Eosinophils % (Manual) Basophils % (Manual) Metamyelocytes % (Man) Myelocytes % (Man) Promyelocytes % (Man) Blast Cells % (Manual) Plasma Cell % (Manual) Other Cells % Nucleated RBC % Neutrophils # (Manual) Band Neutrophils # Total Absolute Neuts Lymphocytes # (Manual) Prolymphocyte # Reactive Lymphs # Total Abs Lymphocytes Monocytes # (Manual) Eosinophils # (Manual) Basophils # (Manual) Metamyelocytes # (Man) Myelocytes # (Manual) Promyelocytes # (Man) Blast Cells # (Man) Plasma Cell # (Manual) Other Cells # Nucleated RBCs # (Man) Hypersegmented Neuts Hyposegmented Neuts Hypogranular Neuts Large Granular Lymphs # Lrg Granular Lymphs Hairy Cells Smudge Cells Toxic Granulation Toxic Vacuolation Dohle Bodies Fe Rods Platelet Estimate Hypogranular Platelets Giant Platelets Platelet Satelliting RBC Morphology Polychromasia Hypochromasia Poikilocytosis Basophilic Stippling Anisocytosis Microcytosis Macrocytosis Spherocytes Pappenheimer Bodies Sickle Cells Target Cells Tear Drop Cells Ovalocytes Stomatocytes [place] Bodies Echinocytes Acanthocytes (Spur) Rouleaux RBC Agglutinates Schistocytes Sezary Cell Sample Site POC pH POC pCO2 POC pO2 POC HCO3 POC Total CO2 POC Base Excess ABG pH (Temp Correct) ABG pCO2 (Temp Corrct POC ABG pO2 at Pt Temp POC ABG O2 Sat [place] Test O2 Delivery Device POC O2 Rate POC FiO2 IPAP POC Sodium Sodium Cancelled 134 L POC Potassium Potassium Cancelled 5.5 H Chloride Cancelled 105 Carbon Dioxide Cancelled 21 Anion Gap Cancelled 8 BUN Cancelled 22 Creatinine Cancelled 1.49 H Est Cr Clr Drug Dosing Cancelled 30.3 Est GFR ( Amer) Cancelled 40.5 Est GFR (Non-Af Amer) Cancelled 35.0 BUN/Creatinine Ratio Cancelled 14.8 Glucose Cancelled 89 POC Glucose 115 H Lactate Calcium Cancelled 7.5 L Magnesium Total Bilirubin AST ALT Alkaline Phosphatase Ammonia Total Protein Albumin Globulin Albumin/Globulin Ratio Procalcitonin Nasal Screen MRSA (PCR) Blood Parasites ID Blood Type Antibody Screen 08/08/23 08/09/23 08/09/23 Unknown 01:20 01:30 WBC RBC Hgb POC Hgb 8.2 L Hct POC Hct 24 L MCV MCH MCHC RDW Std Deviation RDW Coeff of Ender Plt Count MPV Immature Gran % (Auto) Neut % (Auto) Lymph % (Auto) [place] % (Auto) Eos % (Auto) Baso % (Auto) Neut # (Auto) Lymph # (Auto) [place] # (Auto) Eos # (Auto) Baso # (Auto) Immature Gran # (Auto) Absolute Nucleated RBC Nucleated RBC % (auto) Neutrophils % (Manual) Band Neutrophils % Lymphocytes % (Manual) Prolymphocyte % Reactive Lymphs % (Man) Monocytes % (Manual) Eosinophils % (Manual) Basophils % (Manual) Metamyelocytes % (Man) Myelocytes % (Man) Promyelocytes % (Man) Blast Cells % (Manual) Plasma Cell % (Manual) Other Cells % Nucleated RBC % Neutrophils # (Manual) Band Neutrophils # Total Absolute Neuts Lymphocytes # (Manual) Prolymphocyte # Reactive Lymphs # Total Abs Lymphocytes Monocytes # (Manual) Eosinophils # (Manual) Basophils # (Manual) Metamyelocytes # (Man) Myelocytes # (Manual) Promyelocytes # (Man) Blast Cells # (Man) Plasma Cell # (Manual) Other Cells # Nucleated RBCs # (Man) Hypersegmented Neuts Hyposegmented Neuts Hypogranular Neuts Large Granular Lymphs # Lrg Granular Lymphs Hairy Cells Smudge Cells Toxic Granulation Toxic Vacuolation Dohle Bodies Fe Rods Platelet Estimate Hypogranular Platelets Giant Platelets Platelet Satelliting RBC Morphology Polychromasia Hypochromasia Poikilocytosis Basophilic Stippling Anisocytosis Microcytosis Macrocytosis Spherocytes Pappenheimer Bodies Sickle Cells Target Cells Tear Drop Cells Ovalocytes Stomatocytes [place] Bodies Echinocytes Acanthocytes (Spur) Rouleaux RBC Agglutinates Schistocytes Sezary Cell Sample Site L Radial POC pH 7.49 H POC pCO2 24 L POC pO2 67 L POC HCO3 18 L POC Total CO2 19 L POC Base Excess -5.0 ABG pH (Temp Correct) 7.498 H ABG pCO2 (Temp Corrct 23 L POC ABG pO2 at Pt Temp 63 POC ABG O2 Sat 95.0 [place] Test Pass O2 Delivery Device Room Air POC O2 Rate POC FiO2 IPAP POC Sodium 136 Sodium 136 POC Potassium 5.4 H Potassium 5.8 H Chloride 106 Carbon Dioxide 20 L Anion Gap 10 BUN 22 Creatinine 1.52 H Est Cr Clr Drug Dosing 29.7 Est GFR ( Amer) 39.6 Est GFR (Non-Af Amer) 34.1 BUN/Creatinine Ratio 14.5 Glucose 101 H POC Glucose Lactate 4.1 H* Calcium 7.7 L Magnesium Total Bilirubin 1.1 H AST 58 H ALT 17 Alkaline Phosphatase 240 H Ammonia Total Protein 5.5 L Albumin 2.9 L Globulin 2.6 Albumin/Globulin Ratio 1.1 Procalcitonin Nasal Screen MRSA (PCR) Negative Blood Parasites ID Blood Type Antibody Screen 08/09/23 08/09/23 08/09/23 01:32 03:39 03:42 WBC 7.73 RBC 1.94 L Hgb 7.0 L POC Hgb Hct 20.9 L* POC Hct MCV 107.7 H MCH 36.1 H MCHC 33.5 RDW Std Deviation 89.8 H RDW Coeff of Ender 23.1 H Plt Count 67 L MPV 13.2 H Immature Gran % (Auto) 0.4 Neut % (Auto) 75.0 Lymph % (Auto) 16.6 [place] % (Auto) 7.9 Eos % (Auto) 0.0 Baso % (Auto) 0.1 Neut # (Auto) 5.80 Lymph # (Auto) 1.28 [place] # (Auto) 0.61 H Eos # (Auto) 0.00 Baso # (Auto) 0.01 Immature Gran # (Auto) 0.03 Absolute Nucleated RBC Nucleated RBC % (auto) Neutrophils % (Manual) Band Neutrophils % Lymphocytes % (Manual) Prolymphocyte % Reactive Lymphs % (Man) Monocytes % (Manual) Eosinophils % (Manual) Basophils % (Manual) Metamyelocytes % (Man) Myelocytes % (Man) Promyelocytes % (Man) Blast Cells % (Manual) Plasma Cell % (Manual) Other Cells % Nucleated RBC % Neutrophils # (Manual) Band Neutrophils # Total Absolute Neuts Lymphocytes # (Manual) Prolymphocyte # Reactive Lymphs # Total Abs Lymphocytes Monocytes # (Manual) Eosinophils # (Manual) Basophils # (Manual) Metamyelocytes # (Man) Myelocytes # (Manual) Promyelocytes # (Man) Blast Cells # (Man) Plasma Cell # (Manual) Other Cells # Nucleated RBCs # (Man) Hypersegmented Neuts Hyposegmented Neuts Hypogranular Neuts Large Granular Lymphs # Lrg Granular Lymphs Hairy Cells Smudge Cells Toxic Granulation Toxic Vacuolation Dohle Bodies Fe Rods Platelet Estimate Decreased L Hypogranular Platelets Giant Platelets Platelet Satelliting RBC Morphology Polychromasia Hypochromasia Present Poikilocytosis Basophilic Stippling Anisocytosis Present Microcytosis Macrocytosis Spherocytes Pappenheimer Bodies Sickle Cells Target Cells Tear Drop Cells Ovalocytes Stomatocytes [place] Bodies Echinocytes Acanthocytes (Spur) Rouleaux RBC Agglutinates Schistocytes Sezary Cell Sample Site POC pH POC pCO2 POC pO2 POC HCO3 POC Total CO2 POC Base Excess ABG pH (Temp Correct) ABG pCO2 (Temp Corrct POC ABG pO2 at Pt Temp POC ABG O2 Sat [place]grito Test O2 Delivery Device POC O2 Rate POC FiO2 IPAP POC Sodium Sodium 137 POC Potassium Potassium 5.6 H Chloride 108 H Carbon Dioxide 21 Anion Gap 8 BUN 22 Creatinine 1.60 H Est Cr Clr Drug Dosing 28.2 Est GFR ( Amer) 37.2 Est GFR (Non-Af Amer) 32.1 BUN/Creatinine Ratio 13.8 Glucose 78 POC Glucose Lactate 3.4 H* Calcium 7.9 L Magnesium 2.5 H Total Bilirubin AST ALT Alkaline Phosphatase Ammonia Total Protein Albumin Globulin Albumin/Globulin Ratio Procalcitonin 3.36 H Nasal Screen MRSA (PCR) Blood Parasites ID Blood Type Antibody Screen 08/09/23 08/09/23 08/09/23 05:17 07:08 11:23 WBC 10.74 RBC 2.05 L Hgb 7.3 L POC Hgb 6.8 L* Hct 21.3 L POC Hct 20 L* MCV 103.9 H MCH 35.6 H MCHC 34.3 RDW Std Deviation 87.6 H RDW Coeff of Ender 23.4 H Plt Count 67 L MPV 12.8 H Immature Gran % (Auto) 0.6 Neut % (Auto) 87.4 Lymph % (Auto) 8.0 [place] % (Auto) 4.0 Eos % (Auto) 0.0 Baso % (Auto) 0.0 Neut # (Auto) 9.39 H Lymph # (Auto) 0.86 L [place] # (Auto) 0.43 Eos # (Auto) 0.00 Baso # (Auto) 0.00 Immature Gran # (Auto) 0.06 Absolute Nucleated RBC Nucleated RBC % (auto) Neutrophils % (Manual) Band Neutrophils % Lymphocytes % (Manual) Prolymphocyte % Reactive Lymphs % (Man) Monocytes % (Manual) Eosinophils % (Manual) Basophils % (Manual) Metamyelocytes % (Man) Myelocytes % (Man) Promyelocytes % (Man) Blast Cells % (Manual) Plasma Cell % (Manual) Other Cells % Nucleated RBC % Neutrophils # (Manual) Band Neutrophils # Total Absolute Neuts Lymphocytes # (Manual) Prolymphocyte # Reactive Lymphs # Total Abs Lymphocytes Monocytes # (Manual) Eosinophils # (Manual) Basophils # (Manual) Metamyelocytes # (Man) Myelocytes # (Manual) Promyelocytes # (Man) Blast Cells # (Man) Plasma Cell # (Manual) Other Cells # Nucleated RBCs # (Man) Hypersegmented Neuts Hyposegmented Neuts Hypogranular Neuts Large Granular Lymphs # Lrg Granular Lymphs Hairy Cells Smudge Cells Toxic Granulation Toxic Vacuolation Dohle Bodies Fe Rods Platelet Estimate Decreased L Hypogranular Platelets Giant Platelets Platelet Satelliting RBC Morphology Polychromasia 1+ Hypochromasia Poikilocytosis Basophilic Stippling Anisocytosis Present Microcytosis Macrocytosis Spherocytes Pappenheimer Bodies Sickle Cells Target Cells 1+ Tear Drop Cells 2+ Ovalocytes Stomatocytes [place] Bodies Echinocytes 1+ Acanthocytes (Spur) Rouleaux RBC Agglutinates Schistocytes [place] Cell Sample Site L Radial POC pH 7.47 H POC pCO2 26 L POC pO2 90 POC HCO3 19 POC Total CO2 19 L POC Base Excess -5.0 ABG pH (Temp Correct) 7.477 H ABG pCO2 (Temp Corrct 25 L POC ABG pO2 at Pt Temp 87 POC ABG O2 Sat 98.0 H Negrito Test Pass O2 Delivery Device BIPAP POC O2 Rate 20 POC FiO2 50 IPAP 10 POC Sodium 138 Sodium 138 139 POC Potassium 5.5 H Potassium 5.6 H 5.9 H Chloride 108 H 107 Carbon Dioxide 21 19 L Anion Gap 9 13 H BUN 22 23 Creatinine 1.60 H 1.72 H Est Cr Clr Drug Dosing 28.0 26.1 Est GFR ( Amer) 37.2 34.1 Est GFR (Non-Af Amer) 32.1 29.4 BUN/Creatinine Ratio 13.8 13.4 Glucose 68 L 77 POC Glucose Lactate Calcium 7.9 L 8.1 L Magnesium Total Bilirubin AST ALT Alkaline Phosphatase Ammonia 149.0 H Total Protein Albumin Globulin Albumin/Globulin Ratio Procalcitonin Nasal Screen MRSA (PCR) Blood Parasites ID Blood Type A Negative Antibody Screen NEGATIVE Diagnostic Findings ABDOMEN AND PELVIS CT WITHOUT CONTRAST COMPARISON STUDY: Abdomen and pelvis CT 06/19/2023. FINDINGS: Small bilateral pleural effusions and bibasilar densities are better appreciated on the same day chest CT. The heart remains mildly enlarged. There is mild interstitial pulmonary edema. A nasogastric tube terminates in the distal stomach. No pneumoperitoneum. No pneumatosis. Old compression deformities again noted within the lumbar spine. Moderate body wall edema is noted. This has slightly progressed. A few hypodense lesions within the liver remain unchanged and favor cysts. The unenhanced spleen, adrenal glands, pancreas are unremarkable. No renal stones or hydronephrosis. No retroperitoneal lymphadenopathy. Normal caliber abdominal aorta. The gallbladder appears contracted. Exophytic prominence again noted within the interpolar left kidney without definite lesion. This difficult to assess on this noncontrast study. This remains unchanged. Small amount of ascites. The bladder is decompressed by Lord catheter. Prior hysterectomy. Suboptimal evaluation for bowel pathology due to the lack of intravenous and oral contrast. However, no dilated loops of bowel to suggest an obstruction. Fluid-filled small and large bowel seen throughout the abdomen. This suggests a diarrheal illness/gastroenteritis. No definite bowel wall thickening. IMPRESSION: 1. Fluid-filled nondilated loops of large and small bowel seen throughout the abdomen. This favors a gastroenteritis/diarrheal illness. 2. Colonic diverticulosis. No evidence for acute diverticulitis. 3. Moderate ascites and moderate body wall edema. 4. Pulmonary edema and small bilateral pleural effusions. 5. Bibasilar densities are better present on the same day chest CT. 6. The nasogastric tube terminates in the distal stomach. CT chest diagnostic wo con COMPARISON: Chest CTA 07/01/2023. FINDINGS: Mucoid material seen within the trachea and mainstem bronchi. There is partial opacification of the bilateral lower lobe bronchi. Nasogastric tube terminates in the stomach. No pneumothorax. Small bilateral pleural effusions. Interlobular septal thickening consistent with pulmonary edema. There are additional scattered patchy groundglass airspace opacities within the lungs most pronounced on the right. This could be due to the pulmonary edema or a superimposed pneumonia. Consolidation within the bilateral lower lobes po steriorly are nonspecific but could represent atelectasis or pneumonia. There are bilateral total shoulder arthroplasties. There is respiratory motion artifact. Old, healed bilateral rib fractures are noted. Old sternal fracture. Nonunited left scapular fracture again noted. Chronic compression fractures within the thoracic and lumbar spine again noted. No acute fractures. Mild body wall edema. Suspect right hilar lymphadenopathy. This may be reactive. No additional or left hilar lymphadenopathy. The abdominal structures will be reported on the same day abdomen and pelvis CT. The heart remains mildly enlarged. No pericardial effusion. Calcified plaque within the coronary arteries. IMPRESSION: 1. Nasogastric tube terminates in the stomach. 2. Pulmonary edema and small bilateral pleural effusions. 3. Partial mucoid opacification of the trachea and bronchi with bibasilar lower lobe densities. This may represent atelectasis or pneumonia. 4. Additional patchy groundglass airspace opacities within the lungs may be due to the pulmonary edema or a superimposed pneumonia. XR chest 1V portable COMPARISON: Chest 08/07/2023. FINDINGS: There are low lung volumes. No pneumothorax. Nasogastric tube terminates in the stomach. Bilateral total shoulder arthroplasties are noted. The heart is mildly enlarged. There is mild central pulmonary vascular congestion without overt edema. Small right pleural effusion. Bibasilar densities favor subsegmental atelectasis. A hiatal hernia is noted. IMPRESSION: 1. Cardiomegaly and mild congestive change. 2. Small right pleural effusion. 3. Bibasilar linear densities favor subsegmental atelectasis.. 4. Nasogastric tube terminates in the stomach. PG Care Time/CCT Total # of Minutes Spent Total Time Spent with Patient: Total time spent is greater than 50% in coordination of care (as documented) at patient's floor/unit and/or counseling patient: Coding Level of Care Code 13083 IN/OBS CONSULT LVL 5,80M Diagnoses Acute kidney injury N17.9 Hyperkalemia E87.5 Acute UTI N39.0 Hepatic encephalopathy K76.82 Hypothyroidism E03.9 Thrombocytopenia D69.6 Anemia D64.9 Ischemic cardiomyopathy I25.5 Rheumatoid arthritis M06.9
--- NOTE | 2023-08-09 14:26 | Billing Data ---
Date of Service August 09, 2023 Coding Level of Care Code 33826 SUB INP/OBS CARE
[2023-08-09] MEDS: HYDROmorphone INJ 0.5 MG/0.5 ML SYR IV PRN (15:44)
[2023-08-09] MEDS ORDERED: HYDROCORTISONE SOD 100 MG in SYRINGE 0 ML IV ONE (15:45)
[2023-08-09 15:52] LABS: Hematocrit (blood only) 21.9 % (37.0-47.0); Hemoglobin 7.4 g/dl (12.0-16.0); Mean Corpuscular Hemoglobin 36.1 pg (25.0-34.0); Mean Corpuscular Hgb Conc 33.8 g/dL (32.0-36.0); Mean Corpuscular Volume 106.8 fL (80.0-100.0); Mean Platelet Volume 11.9 fL (9.4-12.4); Platelet Count 65 K/uL (130-400); RDW Coefficient of Variation 23.6 % (11.5-14.5); RDW Standard Deviation 89.2 fL (36.4-46.3); Red Blood Count 2.05 M/uL (4.20-5.40); White Blood Count 11.96 K/ul (4.8-10.8)
[2023-08-09 15:56] LABS: Albumin Globulin Ratio 1.5 (0.9-2); Albumin Level 3.1 gm/dl (3.4-5.0); BUN Creatinine Ratio 13.6 (10-20); Bilirubin,Total 1.1 mg/dl (0.2-1.0); Calcium 7.9 mg/dl (8.6-10.3); Creatinine Clr Calc Pharmacy 25.3 ml/min; Est GFR (African American) 32.9 ml/min; Est GFR (Non-African American) 28.4 ml/min; Globulin 2.1 gm/dl (2.5-4.0); Potassium 5.5 mmol/L (3.5-5.1); Total Protein 5.2 gm/dl (6.0-8.3)
[2023-08-09] MEDS: HYDROCORTISONE SOD 50 MG in SYRINGE 0 ML IV SCH (20:48)
[2023-08-10] MEDS: PIPERACILLIN/TAZOBACTAM 4.5 GM in DEXTROSE 5% MINI-B 100 ML IV SCH ×2 (01:39→09:17)
[2023-08-10] MEDS: HYDROCORTISONE SOD 50 MG in SYRINGE 0 ML IV SCH ×2 (03:46→09:15)
[2023-08-10] MEDS: LACTULOSE SYRUP 30 GM/45 ML UDP PO SCH ×3 (03:46→12:31)
[2023-08-10 05:39] LABS: Albumin Globulin Ratio 1.2 (0.9-2); Albumin Level 2.9 gm/dl (3.4-5.0); BUN Creatinine Ratio 14.6 (10-20); Bilirubin,Total 1.2 mg/dl (0.2-1.0); Creatinine Clr Calc Pharmacy 22.5 ml/min; Est GFR (African American) 28.6 ml/min; Est GFR (Non-African American) 24.6 ml/min; Globulin 2.4 gm/dl (2.5-4.0); Magnesium 2.6 mg/dl (1.7-2.4); Potassium 5.1 mmol/L (3.5-5.1); Total Protein 5.3 gm/dl (6.0-8.3)
[2023-08-10] MEDS: VANCOMYCIN HCL 500 MG/10 ML SOLN PO SCH ×2 (06:02→12:31)
[2023-08-10] MEDS: LEVOTHYROXINE SODIUM 75 MCG TABLET PO SCH (06:04)
[2023-08-10 07:07] LABS: Basophils # (auto) 0.04 K/uL (0.00-0.20); Basophils % (auto) 0.2 %; Eosinophils # (auto) 0.03 K/uL (0.00-0.50); Eosinophils % (auto) 0.2 %; Hematocrit (blood only) 26.3 % (37.0-47.0); Hemoglobin 8.7 g/dl (12.0-16.0); Immature Granulocytes # (auto) 0.13 K/uL (0.01-0.20); Immature Granulocytes % (auto) 0.7 %; Lymphocytes % (auto) 7.6 %; Mean Corpuscular Hemoglobin 35.8 pg (25.0-34.0); Mean Corpuscular Hgb Conc 33.1 g/dL (32.0-36.0); Mean Corpuscular Volume 108.2 fL (80.0-100.0); Mean Platelet Volume 12.9 fL (9.4-12.4); Monocytes # (auto) 0.79 K/uL (0.11-0.59); Monocytes % (auto) 4.3 %; Neutrophils # (auto) 15.93 K/uL (1.40-6.50); Ovalocytes 1+; Platelet Count 71 K/uL (130-400); Polychromasia 1+; RDW Coefficient of Variation 23.9 % (11.5-14.5); RDW Standard Deviation 92.8 fL (36.4-46.3); Red Blood Count 2.43 M/uL (4.20-5.40); White Blood Count 18.32 K/ul (4.8-10.8)
--- NOTE | 2023-08-10 08:47 | Hospitalist Progress Note ---
Date of Service August 10, 2023 Assessment & Plan (1) Urinary tract infection: Plan: Pt is a 73 yo female with PMH of ventricular tachycardia, liver abscess, CAD, IBS, RA, and HLD presenting to the hospital due to SOB and lethargy. Pt's prognosis is poor. Discussed at length with family that further measures are futile for her improvement as multiple organ systems are failing. wishes to pursue with comfort measures only in align with what he would want for her and what he thinks her wishes would be. Acute metabolic encephalopathy - head CT neg upon admission; elevated ammonia - no improvement in mentation after several doses of lactulose and lowered ammonia Hyperkalemia - K 6.1 on admission, without hemodynamic instability or arrhythmia; s/p calcium gluconate x2, insulin/dextrose x3, and IVF RHIANNON - Cr 1.28 on admission; baseline WNL 0.6-0.8 - Cr continue to increase despite administration of IVF and albumin; pt is intravascularly depleted and third spacing - nephro consulted Hypoglycemia - BS 66 on admission; no documented hx of DM - BS continues to decrease w/o support most likely secondary to nutrition status Chronic anemia - Hgb at baseline upon admission; has now decreased but stabilized - no signs of active bleeding Urosepsis - UA grossly infected with complaints of urinary symptoms, elevated procalcitonin, meeting sepsis criteria on admission; urine cx growing ESBL - blood cx neg - s/p ceftriaxone and zosyn - no further antibiotic treatment HFrEF - appears stable as echo showed no significant change since 2020: EF 40-45% - CT chest showed evidence of pulmonary edema and pulmonary effusions Elevated troponin - upon admission, 21.6 - has peaked and downtrended - suspect demand in the setting of acute illness/AMS CAD - no acute concerns; no symptoms, no EKG changes, troponin downtrended Elevated bilirubin - appears acute; 2 prior instances noted in chart - pt has extensive biliary/hepatic hx including liver abscess and biliary stents - AST minimally elevated, ALT WNL; alk phos also elevated Thrombocytopenia - plts 65 on admission, does appear to be low since 06/2023 - mildly elevated coagulation studies; may be consumptive from infection but also may be related to suspected underlying liver disease Chronic conditions Insomnia: nortriptyline Hypothyroidism: levothyroxine GERD: lansoprazole Depression: lexapro Asthma: singulair, albuterol PRN (2) Lethargy: (3) Acute metabolic encephalopathy: (4) Acute hypoxic respiratory failure: (5) HFrEF (heart failure with reduced ejection fraction): (6) Elevated troponin: (7) Acute kidney injury: (8) Hyperkalemia: (9) Hypoglycemia: (10) Asthma: (11) GERD (gastroesophageal reflux disease): (12) Insomnia: (13) Coronary artery disease: (14) Hypomagnesemia: (15) Anemia: (16) Depression: (17) Elevated bilirubin: (18) Thrombocytopenia: Admission and Anticipated Discharge Date Admission Date: August 07, 2023 Supervising Physician Co-Signing Physician Notes I personally examined the patient and verified all corbett points of history and exam, discussed case, and agree with decision making with Dr Peraza No meaningful HPI review of systems obtainable from patient. Family present at the bedside. Updated on overall lack of progress and some backwards steps. Discussed overall clinical picture, and options of continuing with aggressive care versus comfort measures, and once they had a good understanding of the overall situation, family felt comfort measures most appropriate. Case discussed with nephrology as well. Vitals noted, she is laying in bed generally unresponsive at the time I am in the room. Breathing is unlabored, skin is pale, exam otherwise as above. Labs all noted Encephalopathyappears to be hepatic and metabolic, Dehydration/RHIANNON/hyperkalemia, I suspect she has chronic liver diseaseas well as severe malnutrition explaining her low albumin and third spacing. Low blood pressures/transient hypotension UTIESBL Recent C. difficile Very poor prognosis, and after extensive discussion with familycomfort measures only. Offered empathy and support. Otherwise as above Subjective Pt examines similar to yesterday. No new changes. Still opening eyes spontaneously but eye movements w/o purpose. Review of Systems Review of Systems: As per HPI Physical Exam Physical Exam: Constitutional: no acute distress HEENT: normocephalic, no conjunctival injection, bilateral eyes w/o purposeful movement CV: RRR, no murmur, bilateral UE and LE edema Respiratory: CTA bilaterally. No rhonchi, wheezes, or crackles. No increased work of breathing MSK: no gross deformities noted Skin: warm, dry, no rashes Neuro: lethargic, unresponsive, random movements w/o purpose Results & Data Results & Data Vital Signs (Past 12 Hours) Vital Signs Temp Pulse Pulse Resp BP Pulse Ox O2 Del Method 08/10/23 04:00 36.6 C 95 H 18 125/95 98 Room Air 08/10/23 03:57 36.6 C 95 H 20 125/95 98 Room Air 08/10/23 00:00 36.4 C L 82 18 127/98 96 Room Air 08/10/23 00:00 85 Resident Activity Tracking Resident Involvement: Resident Care Provided Care Provided: Adult Hospital Medicine (1) Urinary tract infection Hematuria presence: without hematuria Urinary tract infection type: site unspecified Qualified Code(s): N39.0 - Urinary tract infection, site not specified
[2023-08-10] MEDS: ASPIRIN 81 MG ECTAB PO SCH (09:10)
[2023-08-10] MEDS: carvediloL 6.25 MG TAB PO SCH (09:10)
[2023-08-10] MEDS: FOLIC ACID 1 MG TAB PO SCH (09:11)
[2023-08-10] MEDS: PANTOprazole 40 MG TAB PO SCH (09:11)
[2023-08-10] MEDS: ESCITALOPRAM OXALATE 20 MG TAB PO SCH (09:11)
[2023-08-10] MEDS: MONTELUKAST SODIUM 10 MG TABLET PO SCH (09:12)
[2023-08-10 11:02] LABS: Thyroid Stimulating Hormone 1.321 uIu/ml (0.300-4.500)
[2023-08-10 11:04] LABS: T4 Free Thyroxine 0.88 ng/dl (0.61-1.60)
[2023-08-10] MEDS: HYDROmorphone INJ 0.5 MG/0.5 ML SYR IV PRN ×2 (12:59→19:28)
--- NOTE | 2023-08-10 14:55 | Nephrology Progress Note ---
Date of Service August 10, 2023 Assessment & Plan (1) Acute kidney injury: Plan: Prognosis is guarded. UOP continues to decline. Family has opted to pursue comfort measures only. I have nothing more to add at this time. Nephrology will sign-off. (2) Hypothyroidism: Plan: TSH and T4 are not consistent with myxedema. Clinical presentation is atypical. (3) Goals of care, counseling/discussion: Plan: Tammy has evidence of MOSF and posturing. Overall prognosis is very poor. Family has decided to transition to comfort measures only. Admission and Anticipated Discharge Date Admission Date: August 07, 2023 Subjective Tammy was in bed with no signs of distress on my assessment. Code purple overnight for agonal breathing. Tammy is unresponsive and exhibiting signs of decerebrate posturing today. She was evaluated with her and family at the bedside. They have elected to transition to comfort measures only. I have discussed the patient and plan of care several times with Dr. Peraza and Dr. Christianson throughout the day today. There was unfortunately no appreciable response to hydrocortisone. Urine output is significantly reduced. Review of Systems Review of Systems: Unobtainable due to cognitive status Physical Exam Constitutional: + ill appearing, + altered mental status , + frail appearing and + underweight ENMT: NGT. Eyes open but without meaningful movement. No appreciable corneal reflex to my assessment. Respiratory: normal respiratory effort Auscultation: lungs clear to aus cultation bilaterally (anteriorly) Cardiovascular: Rate/Rhythm: regular rate Heart Sounds: normal S1 and normal S2 Extremities: + edema (dependent edema of UE and LE, soft and non- pitting) Musculoskeletal: Extremities: + cyanosis; + extremities abnormal to inspection (cool) Skin: + dry skin Neurologic: Comatose Patient: + decerebrate rigidity Results & Data Vital Signs (Past 12 Hours) Vital Signs Temp Pulse Pulse Resp BP BP Pulse Ox 08/10/23 13:00 88 13 97 08/10/23 12:44 90 14 97 08/10/23 12:44 132/102 H 08/10/23 12:26 149/104 H 08/10/23 12:26 101 H 24 100 08/10/23 12:25 101 H 25 H 100 08/10/23 12:00 99 H 24 100 08/10/23 11:00 98 H 22 100 08/10/23 10:00 86 15 97 08/10/23 09:27 88 15 98 08/10/23 09:27 156/80 H 08/10/23 09:00 90 17 97 08/10/23 08:00 08/10/23 08:00 36.8 C 08/10/23 08:00 17 100 08/10/23 07:00 90 08/10/23 07:00 89 18 96 08/10/23 04:00 36.6 C 95 H 18 125/95 98 08/10/23 03:57 36.6 C 95 H 20 125/95 98 O2 Del Method 08/10/23 13:00 08/10/23 12:44 08/10/23 12:44 Room Air 08/10/23 12:26 08/10/23 12:26 08/10/23 12:25 08/10/23 12:00 08/10/23 11:00 08/10/23 10:00 Room Air 08/10/23 09:27 08/10/23 09:27 08/10/23 09:00 08/10/23 08:00 Room Air 08/10/23 08:00 08/10/23 08:00 08/10/23 07:00 08/10/23 07:00 08/10/23 04:00 Room Air 08/10/23 03:57 Room Air Laboratory Results Laboratory Results - last 24 hr 08/09/23 08/09/23 08/10/23 15:26 15:27 04:48 WBC 11.96 H 18.32 H RBC 2.05 L 2.43 L Hgb 7.4 L 8.7 L Hct 21.9 L 26.3 L MCV 106.8 H 108.2 H MCH 36.1 H 35.8 H MCHC 33.8 33.1 RDW Std Deviation 89.2 H 92.8 H RDW Coeff of Ender 23.6 H 23.9 H Plt Count 65 L 71 L MPV 11.9 12.9 H Immature Gran % (Auto) 0.7 Neut % (Auto) 87.0 Lymph % (Auto) 7.6 [place] % (Auto) 4.3 Eos % (Auto) 0.2 Baso % (Auto) 0.2 Neut # (Auto) 15.93 H Lymph # (Auto) 1.40 [place] # (Auto) 0.79 H Eos # (Auto) 0.03 Baso # (Auto) 0.04 Immature Gran # (Auto) 0.13 Polychromasia 1+ Ovalocytes 1+ Peripher Smr Path Cons Pending Sodium 138 142 Potassium 5.5 H 5.1 Chloride 107 109 H Carbon Dioxide 20 L 20 L Anion Gap 11 13 H BUN 24 H 29 H Creatinine 1.77 H 1.99 H Est Cr Clr Drug Dosing 25.3 22.5 Est GFR ( Amer) 32.9 28.6 Est GFR (Non-Af Amer) 28.4 24.6 BUN/Creatinine Ratio 13.6 14.6 Glucose 80 155 H POC Glucose 83 Lactate 3.7 H* Calcium 7.9 L 8.0 L Magnesium 2.6 H Total Bilirubin 1.1 H 1.2 H AST 90 H 151 H ALT 22 34 Alkaline Phosphatase 193 H 197 H Ammonia 64.0 Total Protein 5.2 L 5.3 L Albumin 3.1 L 2.9 L Globulin 2.1 L 2.4 L Albumin/Globulin Ratio 1.5 1.2 TSH Free T4 Random Cortisol 17.36 08/10/23 08/10/23 04:50 12:23 WBC RBC Hgb Hct MCV MCH MCHC RDW Std Deviation RDW Coeff of Ender Plt Count MPV Immature Gran % (Auto) Neut % (Auto) Lymph % (Auto) [place] % (Auto) Eos % (Auto) Baso % (Auto) Neut # (Auto) Lymph # (Auto) [place] # (Auto) Eos # (Auto) Baso # (Auto) Immature Gran # (Auto) Polychromasia Ovalocytes Peripher Smr Path Cons Sodium Potassium Chloride Carbon Dioxide Anion Gap BUN Creatinine Est Cr Clr Drug Dosing Est GFR ( Amer) Est GFR (Non-Af Amer) BUN/Creatinine Ratio Glucose POC Glucose 74 Lactate Calcium Magnesium Total Bilirubin AST ALT Alkaline Phosphatase Ammonia Total Protein Albumin Globulin Albumin/Globulin Ratio TSH 1.321 Free T4 0.88 Random Cortisol PG Care Time/CCT Total # of Minutes Spent Total Time Spent with Patient: Total time spent is greater than 50% in coordination of care (as documented) at patient's floor/unit and/or counseling patient: Coding Level of Care Code 50599 SUB INP/OBS CARE 3/50MIN Diagnoses Acute kidney injury N17.9 Hypothyroidism E03.9 Goals of care, counseling/discussion Z71.89
--- NOTE | 2023-08-10 16:27 | Billing Data ---
Date of Service August 10, 2023 Coding Level of Care Code 24871 SUB INP/OBS CARE MIN
[2023-08-10] MEDS: LORazepam 0.25 MG in SYRINGE 0.125 ML IV PRN (19:33)
[2023-08-11] MEDS: LORazepam 0.25 MG in SYRINGE 0.125 ML IV PRN (03:15)
[2023-08-11] MEDS: HYDROmorphone INJ 0.5 MG/0.5 ML SYR IV PRN (03:19)
--- NOTE | 2023-08-11 07:41 | Hospitalist Progress Note ---
Date of Service August 11, 2023 Assessment & Plan (1) Urinary tract infection: Plan: Pt is a 73 yo female with PMH of ventricular tachycardia, liver abscess, CAD, IBS, RA, and HLD presenting to the hospital due to SOB and lethargy. Pt's prognosis remains poor. Pt comfortable upon exam and by determination of her family. Continue ativan and dilaudid PRN. Acute metabolic encephalopathy - head CT neg upon admission; elevated ammonia - no improvement in mentation after several doses of lactulose and lowered ammonia Hyperkalemia - K 6.1 on admission, without hemodynamic instability or arrhythmia; s/p calcium gluconate x2, insulin/dextrose x3, and IVF RHIANNON - Cr 1.28 on admission; baseline WNL 0.6-0.8 - Cr continue to increase despite administration of IVF and albumin; pt is int ravascularly depleted and third spacing - nephro consulted Hypoglycemia - BS 66 on admission; no documented hx of DM - BS continues to decrease w/o support most likely secondary to nutrition status Chronic anemia - Hgb at baseline upon admission; has now decreased but stabilized - no signs of active bleeding Urosepsis - UA grossly infected with complaints of urinary symptoms, elevated procalcitonin, meeting sepsis criteria on admission; urine cx growing ESBL - blood cx neg - s/p ceftriaxone and zosyn - no further antibiotic treatment HFrEF - appears stable as echo showed no significant change since 2020: EF 40-45% - CT chest showed evidence of pulmonary edema and pulmonary effusions Elevated troponin - upon admission, 21.6 - has peaked and downtrended - suspect demand in the setting of acute illness/AMS CAD - no acute concerns; no symptoms, no EKG changes, troponin downtrended Elevated bilirubin - appears acute; 2 prior instances noted in chart - pt has extensive biliary/hepatic hx including liver abscess and biliary stents - AST minimally elevated, ALT WNL; alk phos also elevated Thrombocytopenia - plts 65 on admission, does appear to be low since 06/2023 - mildly elevated coagulation studies; may be consumptive from infection but also may be related to suspected underlying liver disease Chronic conditions Insomnia: nortriptyline Hypothyroidism: levothyroxine GERD: lansoprazole Depression: lexapro Asthma: singulair, albuterol PRN (2) Lethargy: (3) Acute metabolic encephalopathy: (4) Acute hypoxic respiratory failure: (5) HFrEF (heart failure with reduced ejection fraction): (6) Elevated troponin: (7) Acute kidney injury: (8) Hyperkalemia: (9) Hypoglycemia: (10) Asthma: (11) GERD (gastroesophageal reflux disease): (12) Insomnia: (13) Coronary artery disease: (14) Hypomagnesemia: (15) Anemia: (16) Depression: (17) Elevated bilirubin: (18) Thrombocytopenia: Admission and Anticipated Discharge Date Admission Date: August 07, 2023 Supervising Physician Co-Signing Physician Notes Resident Physician Supervision Note: I independently interviewed and examined the patient and verified the corbett history and physical, reviewed labs and image studies and agree with resident findings and care plan. No meaningful HPI review of systems obtainable from patient. Family present at the bedside. Vitals noted. comfortable in bed. unresponsive. Breathing unlabored Encephalopathy metabolic - RHIANNON/hyperkalemia and probable ? Hepatic etiology in setting of hyperammonemia Ischemia Cardiomyopathy with CAD - EF 40-45%. Right ventricle not visualized. Concern of underlying liver ds - Work up could not be completed to rule out cirrhosis - was ordered CT liver 4 phase but couldn't be completed due to renal function. -Chronic liver cysts -probable fluid overload leading to chronic liver congestion UTIESBL - completed treatment Recent C. difficile Severe Malnutrition Due to very poor prognosis, and after extensive discussion with familytransitioned to comfort measures only on 08/10. Continue to offer empathy and support. Subjective Pt seen at bedside this AM. Pt's youngest son present. He has no concerns or requests at this time. Review of Systems Review of Systems: Unobtainable due to reduced consciousness Physical Exam Physical Exam: Constitutional: nonresponsive, comfortable, in no distress HEENT: normocephalic CV: clinically perfused Respiratory: no increased work of breathing MSK: no gross deformities noted Skin: pale, warm, dry, no rashes Resident Activity Tracking Resident Involvement: Resident Care Provided Care Provided: Adult Hospital Medicine (1) Urinary tract infection Hematuria presence: without hematuria Urinary tract infection type: site unspecified Qualified Code(s): N39.0 - Urinary tract infection, site not s pecified
--- NOTE | 2023-08-12 07:18 | Hospitalist Progress Note ---
Date of Service August 12, 2023 Assessment & Plan (1) Urinary tract infection: Plan: Pt is a 73 yo female with PMH of ventricular tachycardia, liver abscess, CAD, IBS, RA, and HLD presenting to the hospital due to SOB and lethargy. Pt's prognosis remains poor. Pt comfortable upon exam. Continue medication PRN for comfort. Acute metabolic encephalopathy - head CT neg upon admission; elevated ammonia - no improvement in mentation after several doses of lactulose and lowered ammonia Hyperkalemia - K 6.1 on admission, without hemodynamic instability or arrhythmia; s/p calcium gluconate x2, insulin/dextrose x3, and IVF RHIANNON - Cr 1.28 on admission; baseline WNL 0.6-0.8 - Cr continue to increase despite administration of IVF and albumin; pt is intravascularly depleted and third spacing - nephro consulted Hypoglycemia - BS 66 on admission; no documented hx of DM - BS continues to decrease w/o support most likely secondary to nutrition status Chronic anemia - Hgb at baseline upon admission; has now decreased but stabilized - no signs of active bleeding Urosepsis - UA grossly infected with complaints of urinary symptoms, elevated procalcitonin, meeting sepsis criteria on admission; urine cx growing ESBL - blood cx neg - s/p ceftriaxone and zosyn - no further antibiotic treatment HFrEF - appears stable as echo showed no significant change since 2020: EF 40-45% - CT chest showed evidence of pulmonary edema and pulmonary effusions Elevated troponin - upon admission, 21.6 - has peaked and downtrended - suspect demand in the setting of acute illness/AMS CAD - no acute concerns; no symptoms, no EKG changes, troponin downtrended Elevated bilirubin - appears acute; 2 prior instances noted in chart - pt has extensive biliary/hepatic hx including liver abscess and biliary stents - AST minimally elevated, ALT WNL; alk phos also elevated Thrombocytopenia - plts 65 on admission, does appear to be low since 06/2023 - mildly elevated coagulation studies; may be consumptive from infection but also may be related to suspected underlying liver disease Chronic conditions Insomnia: nortriptyline Hypothyroidism: levothyroxine GERD: lansoprazole Depression: lexapro Asthma: singulair, albuterol PRN (2) Lethargy: (3) Acute metabolic encephalopathy: (4) Acute hypoxic respiratory failure: (5) HFrEF (heart failure with reduced ejection fraction): (6) Elevated troponin: (7) Acute kidney injury: (8) Hyperkalemia: (9) Hypoglycemia: (10) Asthma: (11) GERD (gastroesophageal reflux disease): (12) Insomnia: (13) Coronary artery disease: (14) Hypomagnesemia: (15) Anemia: (16) Depression: (17) Elevated bilirubin: (18) Thrombocytopenia: Admission and Anticipated Discharge Date Admission Date: August 07, 2023 Supervising Physician Co-Signing Physician Notes Resident Physician Supervision Note: I independently interviewed and examined the patient and verified the corbett history and physical, reviewed labs and image studies and agree with resident findings and care plan. No meaningful HPI review of systems obtainable from patient. Vitals noted. comfortable in bed. unresponsive. Breathing unlabored Encephalopathy metabolic - RHIANNON/hyperkalemia and probable ? Hepatic etiology in setting of hyperammonemia Ischemia Cardiomyopathy with CAD - EF 40-45%. Right ventricle not visualized. Concern of underlying liver ds - Work up could not be completed to rule out cirrhosis - was ordered CT liver 4 phase but couldn't be completed due to renal function. -Chronic liver cysts -probable fluid overload leading to chronic liver congestion UTIESBL - completed treatment Recent C. difficile Severe Malnutrition Due to very poor prognosis, and after extensive discussion with familytransitioned to comfort measures only on 08/10. Continue to offer empathy and support. Subjective Pt appears comfortable this AM. Opens eyes to my voice. No family at bedside. Review of Systems Review of Systems: As per HPI Physical Exam Physical Exam: Constitutional: lethargic, no distress, appears comfortable HEENT: normocephalic CV: regular rhythm, regular rate, no murmur Respiratory: Clear to auscultation bilaterally. No rhonchi, wheezes, or crackles. No increased work of breathing MSK: no gross deformities noted Skin: warm, dry, no rashes Results & Data Results & Data Vital Signs (Past 12 Hours) Vital Signs O2 Del Method 08/11/23 19:30 Room Air Resident Activity Tracking Resident Involvement: Resident Care Provided Care Provided: Adult Hospital Medicine (1) Urinary tract infection Hematuria presence: without hematuria Urinary tract infection type: site unspecified Qualified Code(s): N39.0 - Urinary tract infection, site not specified
[2023-08-12] MEDS: MoRPHine SULFATE 2 MG/ML CARP IV PRN (13:01)
[2023-08-12] MEDS ORDERED: GLYCOPYRROLATE 0.2 MG/ML VIAL IV PRN (14:33)
[2023-08-13] MEDS: MoRPHine SULFATE 2 MG/ML CARP IV PRN ×2 (08:41→18:37)
[2023-08-13 10:09] LABS: Basophils # (auto) 0.02 K/uL (0.00-0.20); Basophils % (auto) 0.1 %; Eosinophils # (auto) 0.01 K/uL (0.00-0.50); Hematocrit (blood only) 22.2 % (37.0-47.0); Hemoglobin 7.2 g/dl (12.0-16.0); Immature Granulocytes # (auto) 0.16 K/uL (0.01-0.20); Immature Granulocytes % (auto) 0.8 %; Lymphocytes # (auto) 1.11 K/uL (1.20-3.40); Lymphocytes % (auto) 5.5 %; Mean Corpuscular Hemoglobin 35.8 pg (25.0-34.0); Mean Corpuscular Hgb Conc 32.4 g/dL (32.0-36.0); Mean Corpuscular Volume 110.4 fL (80.0-100.0); Monocytes # (auto) 0.75 K/uL (0.11-0.59); Monocytes % (auto) 3.7 %; Neutrophils # (auto) 18.14 K/uL (1.40-6.50); Neutrophils % (auto) 89.9 %; Nucleated RBC # (auto) 0.02 K/uL (0.00-0.12); Nucleated RBC % (auto) 0.1 %; Platelet Count 66 K/uL (130-400); RDW Coefficient of Variation 23.9 % (11.5-14.5); RDW Standard Deviation 95.3 fL (36.4-46.3); Red Blood Count 2.01 M/uL (4.20-5.40); White Blood Count 20.19 K/ul (4.8-10.8)
[2023-08-13 10:27] LABS: INR 1.4 (0.9-1.1); Prothrombin Time 14.8 Seconds (9.0-12.0)
[2023-08-13 10:39] LABS: Albumin Globulin Ratio 1.1 (0.9-2); Albumin Level 2.6 gm/dl (3.4-5.0); BUN Creatinine Ratio 47.2 (10-20); Bilirubin,Total 1.1 mg/dl (0.2-1.0); Calcium 7.6 mg/dl (8.6-10.3); Creatinine Clr Calc Pharmacy 28.3 ml/min; Est GFR (African American) 42.2 ml/min; Est GFR (Non-African American) 36.4 ml/min; Globulin 2.4 gm/dl (2.5-4.0); Magnesium 2.4 mg/dl (1.7-2.4); Potassium 2.5 mmol/L (3.5-5.1)
[2023-08-13] MEDS ORDERED: POTASSIUM CHLORIDE / WTR 10 MEQ/100 ML PLCT IV SCH (11:30)
[2023-08-13] MEDS ORDERED: POTASSIUM CHLORIDE CRTAB 20 MEQ TABCR PO STA (12:18)
--- NOTE | 2023-08-13 13:41 | Hospitalist Progress Note ---
Date of Service August 13, 2023 Assessment & Plan (1) Urinary tract infection: Plan: Pt is a 73 yo female with PMH of ventricular tachycardia, liver abscess, CAD, IBS, RA, and HLD presenting to the hospital due to SOB and lethargy. Pt's prognosis remains poor even though she is more alert today and conversational. Pt's family requested lab work be drawn due to her change in status. Lab work showed improvement in her Cr but there are still signs of liver damage/failure. Electrolytes deranged due to NPO/malnutrition. With her being more alert, swallowing studies were pursued and she is a high risk for aspiration. Pt and pt's family agree for permissive aspiration/comfort feeding. It was explained to them that her current ability to eat would not be enough to provide her body nourishment and if she were to live longer and want further interventions, this would require a feeding tube or IV nutrition. Pt and pt's agreed that this is not something she would want. Discussed future directions with pt and pt's family at length. When discussing next steps, pt states "I want to go home." I discussed home with hospice as an option which pt and pt's family wanted to hear more about. I also encouraged pt's to talk directly with the pt more about what her wishes and wants are moving forward. I told family I would consult with palliative care for further [facility] discussions and to provider further details about hospice. Pt's and I agreed this is a situation we are taking day-by-day. Acute metabolic encephalopathy - head CT neg upon admission; elevated ammonia - no improvement in mentation after several doses of lactulose and lowered ammonia Hyperkalemia - K 6.1 on admission, without hemodynamic instability or arrhythmia; s/p calcium gluconate x2, insulin/dextrose x3, and IVF RHIANNON - Cr 1.28 on admission; baseline WNL 0.6-0.8 - Cr continue to increase despite administration of IVF and albumin; pt is intravascularly depleted and third spacing - nephro consulted Hypoglycemia - BS 66 on admission; no documented hx of DM - BS continues to decrease w/o support most likely secondary to nutrition status Chronic anemia - Hgb at baseline upon admission; has now decreased but stabilized - no signs of active bleeding Urosepsis - UA grossly infected with complaints of urinary symptoms, elevated procalcitonin, meeting sepsis criteria on admission; urine cx growing ESBL - blood cx neg - s/p ceftriaxone and zosyn - no further antibiotic treatment HFrEF - appears stable as echo showed no significant change since 2020: EF 40-45% - CT chest showed evidence of pulmonary edema and pulmonary effusions Elevated troponin - upon admission, 21.6 - has peaked and downtrended - suspect demand in the setting of acute illness/AMS CAD - no acute concerns; no symptoms, no EKG changes, troponin downtrended Elevated bilirubin - appears acute; 2 prior instances noted in chart - pt has extensive biliary/hepatic hx including liver abscess and biliary stents - AST minimally elevated, ALT WNL; alk phos also elevated Thrombocytopenia - plts 65 on admission, does appear to be low since 06/2023 - mildly elevated coagulation studies; may be consumptive from infection but also may be related to suspected underlying liver disease Chronic conditions Insomnia: nortriptyline Hypothyroidism: levothyroxine GERD: lansoprazole Depression: lexapro Asthma: singulair, albuterol PRN (2) Lethargy: (3) Acute metabolic encephalopathy: (4) Acute hypoxic respiratory failure: (5) HFrEF (heart failure with reduced ejection fraction): (6) Elevated troponin: (7) Acute kidney injury: (8) Hyperkalemia: (9) Hypoglycemia: (10) Asthma: (11) GERD (gastroesophageal reflux disease): (12) Insomnia: (13) Coronary artery disease: (14) Hypomagnesemia: (15) Anemia: (16) Depression: (17) Elevated bilirubin: (18) Thrombocytopenia: Admission and Anticipated Discharge Date Admission Date: August 07, 2023 Supervising Physician Co-Signing Physician Notes Resident Physician Supervision Note: I independently interviewed and examined the patient and verified the corbett history and physical, reviewed labs and image studies and agree with resident findings and care plan. Alert this am. Communicating appropriately. Wanted to eat and hoping to go home. at bedside Vitals noted. comfortable in bed. Alert on waking up. Breathing unlabored, RRR Goals of care - Due to very poor prognosis, and after extensive discussion with familytransitioned to comfort measures on 08/10. With current improvement in mentation - provide supportive care and looking into home hospice options. Palliative care consulted. Swallowing dysfunction - Speech eval done. VFS with aspiration. After discussion with patient - Diet ordered for comfort feeding and permission aspiration allowed. Leukocytosis/Hypernatremia/Elevated LFT - All secondary to multisystem organ dysfunction from likely multisystem primary pathology and no PO intake during comfort care. Supportive care with fluids and meals/electrolyte support. Encephalopathy metabolic - RHIANNON/hyperkalemia and probable ? Hepatic etiology in setting of hyperammonemia Mentation clear Ischemia Cardiomyopathy with CAD - EF 40-45%. Right ventricle not visualized. Concern of underlying liver ds - Work up could not be completed to rule out cirrhosis - was ordered CT liver 4 phase but couldn't be completed due to renal function. Chronic liver cysts probable fluid overload leading to chronic liver congestion UTIESBL - completed treatment Recent C. difficile Severe Malnutrition Continue to offer empathy and support. Subjective Pt much more alert and awake today. She was able to answer yes/no questions in the morning and could speak sentences in the afternoon. Review of Systems Review of Systems: As per HPI Physical Exam Physical Exam: Constitutional: ill appearing, no acute distress HEENT: normocephalic, no conjunctival injection CV: regular rhythm, regular rate, no murmur, no LE edema Respiratory: Clear to auscultation bilaterally. No rhonchi, wheezes, or crackles. No increased work of breathing MSK: no gross deformities noted Skin: warm, dry, no rashes Neuro: alert, conversational, no FND noted Results & Data Results & Data Vital Signs (Past 12 Hours) Vital Signs Temp Resp BP Pulse Ox O2 Del Method 08/13/23 09:59 36.4 C L 14 166/79 H 94 Room Air Resident Activity Tracking Resident Involvement: Resident Care Provided Care Provided: Adult Hospital Medicine (1) Urinary tract infection Hematuria presence: without hematuria Urinary tract infection type: site unspecified Qualified Code(s): N39.0 - Urinary tract infection, site not specified
--- NOTE | 2023-08-13 15:56 | Fluoroscopy Report ---
MODIFIED BARIUM SWALLOW CLINICAL HISTORY: r/o aspiration COMPARISON STUDY: None. FLUOROSCOPY TIME: 0.57 seconds. Ka, r: 1.84 mGy. TECHNIQUE: A modified barium swallow was performed in conjunction with Speech Pathology. The patient ingested varying consistencies of barium containing material. Video fluoroscopy was performed. FINDINGS: There were multiple episodes of tracheal aspiration with swallows of thin liquids and necta r thick liquids. No aspiration was noted with pudding consistency. Mild residuals were noted with mul tiple consistencies. IMPRESSION: 1. Multiple episodes of tracheal aspiration with thin liquids and nectar thick liquids. 2. Full recommendations by Speech pathology to follow. ACT 112: Negative or not required by law. Electronically signed by: Rodney Gilbert M.D. 08/13/2023 3:55 PM
[2023-08-13] MEDS ORDERED: POTASSIUM CHLORIDE CRTAB 20 MEQ TABCR PO ONE (16:00)
[2023-08-14] MEDS: MoRPHine SULFATE 2 MG/ML CARP IV PRN (00:08)
--- NOTE | 2023-08-14 07:29 | Palliative Care Consultation ---
Date of Consultation August 14, 2023 Assessment & Plan (1) Acute hypoxic respiratory failure: Plan Consult received/chart reviewed excellent GOC d/w family and pt held by primary team with clear goal of comfort and home with hospice. The discussion re hospice logistics, services provided and availability are handled by care t as part of dc planning, and if pt/family want more info re hospice, the hospice agency can have a rep come meet with them in the hospice (care mgt also arranges this.) There is no indication for an acute/urgent inpatient palliative medicine consult at this time. I have declined this consult for above reason, notified Dr Peraza. Chart reviewed, pt not seen, NO charge submitted. TS 25min Thank you for allowing us to participate in the ongoing care of this patient. Please don't hesitate to call or page with any additional concerns. Dr. Piper Schwarz DNP Director, Palliative Care History of Present Illness Reason for Consultation: "discuss benefits/details of hospice" Attending Physician: Pam Carrillo MD Allergies Allergy/AdvReac Type Severity Reaction Status Date / Time doxycycline Allergy Severe Anaphylaxis Verified 08/08/23 10:08 bacitracin Allergy Intermediate Hives, Verified 03/24/23 10:51 blisters clavulanic acid Allergy Intermediate Hives Verified 03/24/23 10:51 diphenhydramine Allergy Intermediate Hives Verified 03/24/23 10:51 iodine Allergy Intermediate Hives Verified 03/24/23 10:51 ketorolac Allergy Intermediate Hives Verified 03/24/23 10:51 meclofenamic acid Allergy Intermediate Hives Verified 03/24/23 10:51 neomycin Allergy Intermediate Hives, Verified 03/24/23 10:51 blisters NSAIDS (Non-Steroidal Allergy Intermediate Hives Verified 03/24/23 10:51 Anti-Inflamma (tolerates Celebrex) oxycodone Allergy Intermediate Hives Verified 03/24/23 10:51 (tolerates Vicodin) polymyxin B Allergy Intermediate Hives, Verified 03/24/23 10:51 blisters quinine Allergy Intermediate Hives Verified 03/24/23 10:51 Sulfa (Sulfonamide Allergy Intermediate Hives Verified 03/24/23 10:51 Antibiotics) tramadol Allergy Intermediate Hives, Verified 03/24/23 10:51 itching adhesive Allergy Mild Rash Verified 03/24/23 10:51 hydroxychloroquine Allergy Mild Rash Verified 03/24/23 10:51 latex Allergy Mild Rash Verified 03/24/23 10:51 methotrexate Allergy Mild Rash Verified 03/24/23 10:51 povidone-iodine Allergy Mild Rash Verified 03/24/23 10:51 meperidine AdvReac Intermediate N/V Verified 03/24/23 10:51 prednisone AdvReac Intermediate Made Verified 03/24/23 10:51 "bones soft" aspirin AdvReac Mild N/V Verified 03/24/23 10:51 Home Medications Medication Instructions Recorded Confirmed Type nitroglycerin 0.4 mg sublingual 0.4 mg sublingual Q5M PRN chest 02/22/21 08/07/23 Rx tablet (Nitrostat) pain #25 tabs calcium carbonate 600 mg-vitamin 1 tab PO QAM 08/24/21 08/07/23 History D3 5 mcg (200 unit) tablet acetaminophen 650 mg 650 mg PO Q8H Pain 12/04/21 08/07/23 History tablet,extended release (Tylenol Arthritis Pain) folic acid 1 mg tablet 1 mg PO QAM 05/24/22 08/07/23 History levothyroxine 75 mcg tablet 75 mcg PO QAM #90 tabs 02/25/23 08/07/23 Rx escitalopram oxalate 20 mg tablet 20 mg PO QAM #90 tabs 02/26/23 08/07/23 Rx (Lexapro) aspirin 81 mg tablet,delayed 81 mg PO QAM #90 tabs 05/20/23 08/07/23 Rx release lansoprazole 15 mg capsule,delayed 15 mg PO QAM #90 caps 05/20/23 08/07/23 Rx release (Prevacid 24Hr) albuterol sulfate 90 mcg/actuation 1 - 2 puff inhalation .Q 4-6 HRS 06/17/23 08/07/23 History aerosol inhaler (Ventolin HFA) PRN shortness of breath or wheezing menthol 0.44 %-zinc oxide 20.6 % 1 applic topical QID PRN skin 07/10/23 08/07/23 Rx topical ointment (Calmoseptine) irritation #113 grams montelukast 10 mg tablet 10 mg PO QAM #90 tabs 07/10/23 08/07/23 Rx (Singulair) nortriptyline 25 mg capsule 25 mg PO HS #90 caps 07/10/23 08/07/23 Rx polyethylene glycol 3350 17 17 g PO DAILY PRN constipation 07/10/23 08/07/23 Rx gram/dose oral powder (Miralax) #119 grams carvedilol 6.25 mg tablet 6.25 mg PO BIDM #180 tabs 07/31/23 08/07/23 Rx potassium chloride 10 mEq 10 meq PO QAM 08/07/23 08/07/23 History tablet,extended release Patient History Medical History (Updated 08/16/23 @ 09:34 by Hayley Webster MD) V-tach Liver abscess History of COVID-19 DX 05/2021 (NO SYMPTOMS>PT STATES WAS A FALSE POSITIVE) Anxiety and depression Cholecystitis with perforation of gallbladder Ischemic cardiomyopathy Coronary artery disease Cardiac catheterization -02/22/2021:Impression: 1. Severe CAD involving ostial/proximal LAD (100%), filling via left to left and right to left collaterals. 2. Otherwise nonobstructive CAD involving the mid circumflex. 3. No aortic stenosis. 4. Normal left-sided filling pressure. Anemia Hx of fracture Right shoulder AC joint fracture (10/2020) due to traumatic event > healing without surgical intervention Insomnia Lumbar spinal stenosis Steroid-induced osteoporosis IBS (irritable bowel syndrome) GERD (gastroesophageal reflux disease) Hypothyroidism History of right breast cancer s/p lumpectomy (1969)- no chemo or xrt Rheumatoid arthritis Hyperlipidemia Lumbar facet joint syndrome Sacroiliitis Allergic rhinitis Asthma Hypertension Surgical History History of biopsy Nausea and vomiting after administration of anesthetic agent History of cardiac cath NO - [facility] Dr. Arthur History of ERCP WITH STENT (NOT PRESENT) H/O cataract extraction R/L eye S/P ORIF (open reduction internal fixation) fracture Left ankle H/O arthroscopy of shoulder L shoulder S/p reverse total shoulder arthroplasty Left reverse TSA (02/26/19): Grade view 2, MAC#3, ETT 7 + PNB at [facility] (scope patch used) History of tonsillectomy History of foot surgery R/L History of arthroscopy of left knee History of right knee joint replacement History of total abdominal hysterectomy and bilateral salpingo-oophorectomy d/t endometriosis History of lumpectomy of right breast History of breast biopsy Family History Grandmother (Paternal) Family history of diabetes mellitus Grandmother (Maternal) Family history of diabetes mellitus Father Coronary heart disease Alzheimer disease Myocardial infarction Osteoarthritis COPD (chronic obstructive pulmonary disease) Lung disease Mother Myocardial infarction COPD (chronic obstructive pulmonary disease) Other No family history of adverse response to anesthesia Denies family history of Ovarian cancer Prostate cancer Breast cancer Colorectal cancer Social History Smoking Status: Never smoker Second Hand Exposure: Yes; Do You Dip or Chew Tobacco: No; Hx Alcohol Use: No Hx Substance Use: No Preferred Language: Panamanian Communication Ability: Effective Visual Impairment: No Limitations Hearing Ability: Normal Health Education Coordinator Required: No Beliefs That Will Affect Care: None marital status: Current Living Situation: Spouse and Family Current Living Situation Comment: Home with family current occupational status: retired How many Children do You have: 2 Feels Safe at Home: Yes Childhood Exposure to Second-Hand Smoke: Yes Diet: regular Diet Comment: regular caffeine: Yes (coffee) during the past year weight has: remained stable Dental Care, Regularly: No Physical Activity Frequency: Daily Physical Activity Frequency Comment: walking indoors Seatbelt Use: always Sunscreen Use: No Assistive Devices: Bedside Commode, Scooter/Electric Scooter and Wheelchair Results & Data Vital Signs (Past 12 Hours) Vital Signs O2 Del Method 08/14/23 00:40 Room Air PG Care Time/CCT Total # of Minutes Spent Total Time Spent with Patient: Total time spent is greater than 50% in coordination of care (as documented) at patient's floor/unit and/or counseling patient: Coding Level of Care Code 74176 INT INP/OBS CARE 3/75MIN Diagnoses Acute hypoxic respiratory failure J96.01
--- NOTE | 2023-08-14 07:36 | Hospitalist Progress Note ---
Date of Service August 14, 2023 Assessment & Plan (1) Urinary tract infection: Plan: Pt is a 73 yo female with PMH of ventricular tachycardia, liver abscess, CAD, IBS, RA, and HLD presenting to the hospital due to SOB and lethargy. Pt's prognosis remains poor- she is alert and conversational today. Her and her family are still on board with comfort measures as they do not wish to pursue further diagnostic testing/feeding tubes for nutrition. Discharge discussion had with case management- referrals are placed for SNF as family cannot care for pt at home. Pt's prefers she go to [facility] as he used to work there and it is very close to his house. Plan to continue comfort measures and comfort feeds while pt is here. Acute metabolic encephalopathy - head CT neg upon admission; elevated ammonia - no initial improvement in mentation after several doses of lactulose and lowered ammonia; pt became alert/conversational 08/13 Hyperkalemia - K 6.1 on admission, without hemodynamic instability or arrhythmia; s/p calcium gluconate x2, insulin/dextrose x3, and IVF RHIANNON - Cr 1.28 on admission; baseline WNL 0.6-0.8 - Cr continue to increase despite administration of IVF and albumin; pt is intravascularly depleted and third spacing - nephro consulted Hypoglycemia - BS 66 on admission; no documented hx of DM - BS continues to decrease w/o support most likely secondary to nutrition status Chronic anemia - Hgb at baseline upon admission; has now decreased but stabilized - no signs of active bleeding Urosepsis - UA grossly infected with complaints of urinary symptoms, elevated procalcitonin, meeting sepsis criteria on admission; urine cx growing ESBL - blood cx neg - s/p ceftriaxone and zosyn - no further antibiotic treatment HFrEF - appears stable as echo showed no significant change since 2020: EF 40-45% - CT chest showed evidence of pulmonary edema and pulmonary effusions Elevated troponin - upon admission, 21.6 - has peaked and downtrended - suspect demand in the setting of acute illness/AMS CAD - no acute concerns; no symptoms, no EKG changes, troponin downtrended Elevated bilirubin - appears acute; 2 prior instances noted in chart - pt has extensive biliary/hepatic hx including liver abscess and biliary stents - AST minimally elevated, ALT WNL; alk phos also elevated Thrombocytopenia - plts 65 on admission, does appear to be low since 06/2023 - mildly elevated coagulation studies; may be consumptive from infection but also may be related to suspected underlying liver disease Chronic conditions Insomnia: nortriptyline Hypothyroidism: levothyroxine GERD: lansoprazole Depression: lexapro Asthma: singulair, albuterol PRN (2) Lethargy: (3) Acute metabolic encephalopathy: (4) Acute hypoxic respiratory failure: (5) HFrEF (heart failure with reduced ejection fraction): (6) Elevated troponin: (7) Acute kidney injury: (8) Hyperkalemia: (9) Hypoglycemia: (10) Asthma: (11) GERD (gastroesophageal reflux disease): (12) Insomnia: (13) Coronary artery disease: (14) Hypomagnesemia: (15) Anemia: (16) Depression: (17) Elevated bilirubin: (18) Thrombocytopenia: Admission and Anticipated Discharge Date Admission Date: August 07, 2023 Supervising Physician Co-Signing Physician Notes Resident Physician Supervision Note: I independently interviewed and examined the patient and verified the corbett history and physical, reviewed labs and image studies and agree with resident findings and care plan. Alert this am. Communicating appropriately. Eating well. Vitals noted. comfortable in bed. Alert on waking up. Breathing unlabored, RRR Goals of care - Due to very poor prognosis, and after extensive discussion with familytransitioned to comfort measures on 08/10. With current improvement in mentation - providing supportive care and looking into home hospice options. Swallowing dysfunction - Speech eval done. VFS with aspiration. After discussion with patient - Diet ordered for comfort feeding and permission aspiration allowed. Leukocytosis/Hypernatremia/Elevated LFT - All secondary to multisystem organ dysfunction from likely multisystem primary pathology and no PO intake during comfort care. Supportive care with fluids and meals/electrolyte support. Encephalopathy metabolic - RHIANNON/hyperkalemia and probable ? Hepatic etiology in setting of hyperammonemia Mentation clear Ischemia Cardiomyopathy with CAD - EF 40-45%. Right ventricle not visualized. Concern of underlying liver ds - Work up could not be completed to rule out cirrhosis - was ordered CT liver 4 phase but couldn't be completed due to renal function. Chronic liver cysts probable fluid overload leading to chronic liver congestion UTIESBL - completed treatment Recent C. difficile Severe Malnutrition Rectal tube and hunter in place. Subjective Pt is awake and alert this morning. She is conversational. She wants further discussions about the future of her care to be discussed when her is present. Review of Systems Review of Systems: As per HPI Physical Exam Physical Exam: Constitutional: well appearing, no acute distress HEENT: normocephalic, no conjunctival injection CV: regular rhythm, regular rate, no murmur, no LE edema Respiratory: Clear to auscultation bilaterally. No rhonchi, wheezes, or crackles. No increased work of breathing MSK: no gross deformities noted Skin: warm, dry, no rashes Neuro: alert, oriented to self and year, no FND noted Results & Data Results & Data Vital Signs (Past 12 Hours) Vital Signs O2 Del Method 08/14/23 00:40 Room Air Resident Activity Tracking Resident Involvement: Resident Care Provided Care Provided: Adult Hospital Medicine (1) Urinary tract infection Hematuria presence: without hematuria Urinary tract infection type: site unspecified Qualified Code(s): N39.0 - Urinary tract infection, site not specified
--- NOTE | 2023-08-15 07:03 | Hospitalist Progress Note ---
Date of Service August 15, 2023 Assessment & Plan (1) Urinary tract infection: Plan: Pt is a 73 yo female with PMH of ventricular tachycardia, liver abscess, CAD, IBS, RA, and HLD presenting to the hospital due to SOB and lethargy. Pt's prognosis remains poor- she is less conversational than yesterday. She appears to be breathing fast but denies SOB/discomfort/pain. Plan remains for comfort and discharge to SNF. As discussed yesterday, pt's prefers she go to [facility] as he used to work there and it is very close to his house. Continue ativan and morphine PRN, mouth care, and feedings as pt wishes. Acute metabolic encephalopathy - head CT neg upon admission; elevated ammonia - no initial improvement in mentation after several doses of lactulose and lowered ammonia; pt became alert/conversational 08/13 Hyperkalemia - K 6.1 on admission, without hemodynamic instability or arrhythmia; s/p calcium gluconate x2, insulin/dextrose x3, and IVF RHIANNON - Cr 1.28 on admission; baseline WNL 0.6-0.8 - Cr continue to increase despite administration of IVF and albumin; pt is intravascularly depleted and third spacing - nephro consulted Hypoglycemia - BS 66 on admission; no documented hx of DM - BS continued to decrease w/o support most likely secondary to nutrition status Chronic anemia - Hgb at baseline upon admission; has now decreased but stabilized - no signs of active bleeding Urosepsis - UA grossly infected with complaints of urinary symptoms, elevated procalcitonin, meeting sepsis criteria on admission; urine cx growing ESBL - blood cx neg - s/p ceftriaxone and zosyn - no further antibiotic treatment HFrEF - appears stable as echo showed no significant change since 2020: EF 40-45% - CT chest showed evidence of pulmonary edema and pulmonary effusions Elevated troponin - upon admission, 21.6 - has peaked and downtrended - suspect demand in the setting of acute illness/AMS CAD - no acute concerns; no symptoms, no EKG changes, troponin downtrended Elevated bilirubin - appears acute; 2 prior instances noted in chart - pt has extensive biliary/hepatic hx including liver abscess and biliary stents - AST minimally elevated, ALT WNL; alk phos also elevated Thrombocytopenia - plts 65 on admission, does appear to be low since 06/2023 - mildly elevated coagulation studies; may be consumptive from infection but also may be related to suspected underlying liver disease Chronic conditions Insomnia: nortriptyline Hypothyroidism: levothyroxine GERD: lansoprazole Depression: lexapro Asthma: singulair, albuterol PRN (2) Lethargy: (3) Acute metabolic encephalopathy: (4) Acute hypoxic respiratory failure: (5) HFrEF (heart failure with reduced ejection fraction): (6) Elevated troponin: (7) Acute kidney injury: (8) Hyperkalemia: (9) Hypoglycemia: (10) Asthma: (11) GERD (gastroesophageal reflux disease): (12) Insomnia: (13) Coronary artery disease: (14) Hypomagnesemia: (15) Anemia: (16) Depression: (17) Elevated bilirubin: (18) Thrombocytopenia: Admission and Anticipated Discharge Date Admission Date: August 07, 2023 Supervising Physician Co-Signing Physician Notes Resident Physician Supervision Note: I independently interviewed and examined the patient and verified the corbett history and physical, reviewed labs and image studies and agree with resident findings and care plan. Alert. Communicating appropriately. Eating well. Vitals noted. comfortable in bed. Alert on waking up. Breathing unlabored, RRR; left arm flaccid. Goals of care - Due to very poor prognosis, and after extensive discussion with familytransitioned to comfort measures on 08/10. With current improvement in mentation - providing supportive care and looking into home hospice options. Swallowing dysfunction - Speech eval done. VFS with aspiration. After discussion with patient - Diet ordered for comfort feeding and permission aspiration allowed. Leukocytosis/Hypernatremia/Elevated LFT - All secondary to multisystem organ dysfunction from likely multisystem primary pathology and no PO intake during comfort care. Supportive care with fluids and meals/electrolyte support. Encephalopathy metabolic - RHIANNON/hyperkalemia and probable ? Hepatic etiology in setting of hyperammonemia Mentation clear Ischemia Cardiomyopathy with CAD - EF 40-45%. Right ventricle not visualized. Concern of underlying liver ds - Work up could not be completed to rule out cirrhosis - was ordered CT liver 4 phase but couldn't be completed due to renal function. Chronic liver cysts probable fluid overload leading to chronic liver congestion UTIESBL - completed treatment Recent C. difficile Severe Malnutrition Rectal tube and hunter in place. Subjective Pt resting comfortably in bed this AM. She is responsive to my questions with head shakes, but does not really talk. Her breathing is fast but when asked about pain or SOB, she denies. No family at bedside this AM. Review of Systems Review of Systems: As per HPI Physical Exam Physical Exam: Constitutional: ill appearing, no acute distress HEENT: normocephalic, no conjunctival injection CV: tachycardic, no murmur, regular rhythm, no LE edema Respiratory: Tachypneic, clear to auscultation bilaterally. No rhonchi, wheezes, or crackles. MSK: no gross deformities noted Skin: warm, dry, some bruising and edema noted of right arm Neuro: alert to my voice Results & Data Results & Data Vital Signs (Past 12 Hours) Vital Signs O2 Del Method 08/14/23 21:45 Room Air Resident Activity Tracking Resident Involvement: Resident Care Provided Care Provided: Adult Hospital Medicine (1) Urinary tract infection Hematuria presence: without hematuria Urinary tract infection type: site unspecified Qualified Code(s): N39.0 - Urinary tract infection, site not specified
[2023-08-16] MEDS: MoRPHine SULFATE 2 MG/ML CARP IV PRN (05:38)
--- NOTE | 2023-08-16 07:14 | Hospitalist Progress Note ---
Date of Service August 16, 2023 Assessment & Plan (1) Comfort measures only status: Plan: Pt is a 73 y/o female with PMH of ventricular tachycardia, liver abscess, CAD, IBS, RA, and HLD presenting to the hospital due to SOB and lethargy. Comfort measures only status Pt's prognosis remains poor. Plan remains for comfort and discharge to SNF. As discussed yesterday, pt's prefers she go to [facility] as he used to work there and it is very close to his house. Continue ativan and morphine PRN, mouth care, and feedings as pt wishes. Defer on AM labs Acute metabolic encephalopathy Patient initially altered in the setting of sepsis 2/[address] head negative. Elevated ammonia in the setting of known liver disease. No change with lactulose and correction of ammonia. Did improve briefly on 08/13. Mentation waxes and wanes. Hyperkalemia K 6.1 on admission, without hemodynamic instability or arrhythmia; s/p calcium gluconate x2, insulin/dextrose x3, and IVF RHIANNON Cr 1.28 on admission; baseline WNL 0.6-0.8. Cr continue to increase despite administration of IVF and albumin; pt is intravascularly depleted and third spacing. 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 Nephrology has signed off Hypoglycemia BS 66 on admission; no documented hx of DM. Patient unable to maintain blood sugar levels in the normal range. Likely due to nutrition status. Continue supportive care. Chronic anemia Hgb decreased but stable. No signs of active bleeding Urosepsis Patient presented with urinary symptoms. UA grossly infected. ESBL on urine cx. Blood cx negative. Patient adequately treated with ceftriaxone and zosyn. No further abx indicated at this time. HFrEF Appears stable as ECHO showed no significant change since 2020: EF 40-45%. CT chest showed evidence of pulmonary edema and pulmonary effusions Elevated troponin Has since peaked and downtrended. Likely demand in the setting of acute illness/AMS CAD No acute concerns; no symptoms, no EKG changes, troponin downtrended Elevated bilirubin Pt has extensive biliary/hepatic hx including liver abscess and biliary stents. AST minimally elevated, ALT WNL; alk phos also elevated Thrombocytopenia Plts 65 on admission, does appear to have been low since 06/2023. May be related to suspected underlying liver disease Chronic conditions Insomnia: nortriptyline Hypothyroidism: levothyroxine GERD: lansoprazole Depression: lexapro Asthma: singulair, albuterol PRN (2) Urinary tract infection: (3) Lethargy: (4) Acute metabolic encephalopathy: (5) Acute hypoxic respiratory failure: (6) HFrEF (heart failure with reduced ejection fraction): (7) Elevated troponin: (8) Acute kidney injury: (9) Hyperkalemia: (10) Hypoglycemia: (11) Asthma: (12) GERD (gastroesophageal reflux disease): (13) Insomnia: (14) Coronary artery disease: (15) Hypomagnesemia: (16) Anemia: (17) Depression: (18) Elevated bilirubin: (19) Thrombocytopenia: Admission and Anticipated Discharge Date Admission Date: August 07, 2023 Supervising Physician Co-Signing Physician Notes Resident Physician Supervision Note: I independently interviewed and examined the patient and verified the corbett history and physical, reviewed labs and image studies and agree with resident findings and care plan. Alert but not oriented. repeating sentences. not communicating. Ate well per . Vitals noted. comfortable in bed. Alert on waking up but disoriented. Breathing unlabored, RRR; left arm flaccid. Goals of care - Due to very poor prognosistransitioned to comfort measures on 08/10. unable to provide care for home hospice. planning SNF discharge next week. Swallowing dysfunction - Speech eval done 08/13. VFS with aspiration. After discussion with patient - Diet ordered for comfort feeding and permission aspiration allowed. Reassessment requested by 08/16 - speech therapist informed. Leukocytosis/Hypernatremia/Elevated LFT - All secondary to multisystem organ dysfunction from likely multisystem primary pathology and no PO intake during comfort care. Continue comfort care. Encephalopathy metabolic - RHIANNON/hyperkalemia and probable ? Hepatic etiology in setting of hyperammonemia Mentation waxing/wanning Ischemia Cardiomyopathy with CAD - EF 40-45%. Right ventricle not visualized. Concern of underlying liver ds - Work up could not be completed to rule out cirrhosis - was ordered CT liver 4 phase but couldn't be completed due to renal function. Chronic liver cysts probable fluid overload leading to chronic liver congestion UTIESBL - completed treatment Recent C. difficile Severe Malnutrition Rectal tube and hunter in place. Subjective Patient resting comfortably in bed. Denies pain. Does respond to voice. Review of Systems Review of Systems: As per HPI Physical Exam Physical Exam: Constitutional: ill appearing, no acute distress HEENT: normocephalic, no conjunctival injection CV: clinically well perfused, sign warm, radial pulses 2+ symmetric, no LE edema Respiratory: No increased work of breathing MSK: no gross deformities noted Skin: warm, dry, some bruising and edema noted of right arm Neuro: alert to my voice Results & Data Results & Data Vital Signs (Past 12 Hours) Vital Signs O2 Del Method 08/15/23 21:35 Room Air Resident Activity Tracking Resident Involvement: Resident Care Provided Care Provided: Adult Hospital Medicine (2) Urinary tract infection Hematuria presence: without hematuria Urinary tract infection type: site unspecified Qualified Code(s): N39.0 - Urinary tract infection, site not specified
[2023-08-16 12:46] LABS: Hematocrit (blood only) 24.4 % (37.0-47.0); Hemoglobin 7.3 g/dl (12.0-16.0); Mean Corpuscular Hemoglobin 36.9 pg (25.0-34.0); Mean Corpuscular Hgb Conc 29.9 g/dL (32.0-36.0); Mean Corpuscular Volume 123.2 fL (80.0-100.0); Mean Platelet Volume 13.6 fL (9.4-12.4); Platelet Count 72 K/uL (130-400); RDW Coefficient of Variation 23.8 % (11.5-14.5); RDW Standard Deviation 106.1 fL (36.4-46.3); Red Blood Count 1.98 M/uL (4.20-5.40); White Blood Count 13.11 K/ul (4.8-10.8)
[2023-08-16 12:56] LABS: Albumin Level 2.5 gm/dl (3.4-5.0); BUN Creatinine Ratio 43.3 (10-20); Bilirubin,Total 0.9 mg/dl (0.2-1.0); Calcium 8.1 mg/dl (8.6-10.3); Creatinine Clr Calc Pharmacy 45.3 ml/min; Est GFR (African American) 74.6 ml/min; Est GFR (Non-African American) 64.3 ml/min; Globulin 2.4 gm/dl (2.5-4.0); Potassium 4.1 mmol/L (3.5-5.1); Total Protein 4.9 gm/dl (6.0-8.3)
--- NOTE | 2023-08-16 16:22 | Communication Note ---
Date of Service: August 16, 2023 Discussed lab results with - would like to have treatment done for elevated sodium level. D5 water at 80ml/hr added. will follow.
[2023-08-16] MEDS: DEXTROSE 5% 1,000 ML IV SCH (17:01)
[2023-08-17] MEDS: DEXTROSE 5% 1,000 ML IV SCH ×2 (05:39→20:23)
--- NOTE | 2023-08-17 07:01 | Hospitalist Progress Note ---
Date of Service August 17, 2023 Assessment & Plan (1) Comfort measures only status: Plan: Pt is a 73 y/o female with PMH of ventricular tachycardia, liver abscess, CAD, IBS, RA, and HLD presenting to the hospital due to SOB and lethargy. Comfort measures only status Pt's prognosis remains poor. Plan remains for comfort and discharge to SNF. Pt's prefers she go to [facility] as he used to work there and it is very close to his house. Continue ativan and morphine PRN, mouth care, and feedings as pt wishes. requested labs and treatment of lab abnormalities. Now on 5DW @ 80 mL/hr for hypernatremia and low blood sugars. Likely this is not providing comfort and moreso targeting a number, but with respect to patient family's wishes will continue for now. Acute metabolic encephalopathy Patient initially altered in the setting of sepsis 2/[address] head negative. Elevated ammonia in the setting of known liver disease. No change with lactulose and correction of ammonia. Did improve briefly on 08/13. Mentation waxes and wanes. Hyperkalemia K 6.1 on admission, without hemodynamic instability or arrhythmia; s/p calcium gluconate x2, insulin/dextrose x3, and IVF RHIANNON Cr 1.28 on admission; baseline WNL 0.6-0.8. Cr continue to increase despite administration of IVF and albumin; pt is intravascularly depleted and third spacing. 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 Nephrology has signed off Hypoglycemia BS 66 on admission; no documented hx of DM. Patient unable to maintain blood sugar levels in the normal range. Likely due to nutrition status. Continue supportive care. Chronic anemia Hgb decreased but stable. No signs of active bleeding Urosepsis Patient presented with urinary symptoms. UA grossly infected. ESBL on urine cx. Blood cx negative. Patient adequately treated with ceftriaxone and zosyn. No further abx indicated at this time. HFrEF Appears stable as ECHO showed no significant change since 2020: EF 40-45%. CT chest showed evidence of pulmonary edema and pulmonary effusions Elevated troponin Has since peaked and downtrended. Likely demand in the setting of acute illness/AMS CAD No acute concerns; no symptoms, no EKG changes, troponin downtrended Elevated bilirubin Pt has extensive biliary/hepatic hx including liver abscess and biliary stents. AST minimally elevated, ALT WNL; alk phos also elevated Thrombocytopenia Plts 65 on admission, does appear to have been low since 06/2023. 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 Insomnia: nortriptyline Hypothyroidism: levothyroxine GERD: lansoprazole Depression: lexapro Asthma: singulair, albuterol PRN (2) Urinary tract infection: (3) Lethargy: (4) Acute metabolic encephalopathy: (5) Acute hypoxic respiratory failure: (6) HFrEF (heart failure with reduced ejection fraction): (7) Elevated troponin: (8) Acute kidney injury: (9) Hyperkalemia: (10) Hypoglycemia: (11) Asthma: (12) GERD (gastroesophageal reflux disease): (13) Insomnia: (14) Coronary artery disease: (15) Hypomagnesemia: (16) Anemia: (17) Depression: (18) Elevated bilirubin: (19) Thrombocytopenia: Admission and Anticipated Discharge Date Admission Date: August 07, 2023 Supervising Physician Co-Signing Physician Notes Resident Physician Supervision Note: I independently interviewed and examined the patient and verified the corbett history and physical, reviewed labs and image studies and agree with resident findings and care plan. Alert but not not able to answer orientation questions. Ate well per . Vitals noted. comfortable in bed. Alert on waking up but not able to answer orientation questions. Breathing unlabored, RRR; Able to move right arm. Goals of care - Due to very poor prognosistransitioned to comfort measures on 08/10. unable to provide care for home hospice. planning SNF discharge on ? friday. Continue comfort feeding and fluid intake. Consider moving out of bed/pt/ot eval if continues to improve PO intake and stays alert. Leukocytosis/Hypernatremia/Elevated LFT - All secondary to multisystem organ dysfunction from likely multisystem primary pathology and no PO intake during comfort care. With patient being more awake, has been requesting to do labs and provide care to address abnormal labs. 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 Encephalopathy metabolic - RHIANNON/hyperkalemia and probable ? Hepatic etiology in setting of hyperammonemia Mentation waxing/wanning Ischemia Cardiomyopathy with CAD - EF 40-45%. Right ventricle not visualized. Concern of underlying liver ds - Work up could not be completed to rule out cirrhosis - was ordered CT liver 4 phase but couldn't be completed due to renal function. Chronic liver cysts probable fluid overload leading to chronic liver congestion If continues to improve - consider liver CT. Swallowing dysfunction - Speech eval done 08/13. VFS with aspiration. After discussion with patient - Diet ordered for comfort feeding and permission aspiration allowed. Reassessment requested by 08/16 - speech therapist informed. UTIESBL - completed treatment Recent C. difficile Severe Malnutrition Rectal tube and hunter in place. IV access - None currently. Poor IV access and infiltrated. Subjective Patient resting comfortably in bed. Denies pain. Does respond to voice. Family not present at the time of my evaluation. Review of Systems 2 Review of Systems: As per HPI Physical Exam 2 Physical Exam: Constitutional: ill appearing, no acute distress HEENT: normocephalic, no conjunctival injection CV: clinically well perfused, sign warm, radial pulses 2+ symmetric, no LE edema Respiratory: No increased work of breathing MSK: no gross deformities noted Skin: warm, dry, some bruising and edema noted of right arm Neuro: alert to my voice, unable to follow commands Results & Data Results & Data Laboratory Results 08/17/23 08:13 Resident Activity Tracking Resident Involvement: Resident Care Provided Care Provided: Adult Hospital Medicine (2) Urinary tract infection Hematuria presence: without hematuria Urinary tract infection type: site unspecified Qualified Code(s): N39.0 - Urinary tract infection, site not specified
[2023-08-17 08:58] LABS: Albumin Level 2.6 gm/dl (3.4-5.0); BUN Creatinine Ratio 45.2 (10-20); Calcium 8.6 mg/dl (8.6-10.3); Creatinine Clr Calc Pharmacy 55.9 ml/min; Est GFR (Non-African American) 82.9 ml/min; Globulin 2.7 gm/dl (2.5-4.0); Potassium 4.1 mmol/L (3.5-5.1); Total Protein 5.3 gm/dl (6.0-8.3)
[2023-08-17 13:27] LABS: Hematocrit (blood only) 24.8 % (37.0-47.0); Hemoglobin 7.6 g/dl (12.0-16.0); Mean Corpuscular Hemoglobin 37.4 pg (25.0-34.0); Mean Corpuscular Hgb Conc 30.6 g/dL (32.0-36.0); Mean Corpuscular Volume 122.2 fL (80.0-100.0); Mean Platelet Volume 13.9 fL (9.4-12.4); Nucleated RBC # (auto) 0.03 K/uL (0.00-0.12); Nucleated RBC % (auto) 0.2 %; Platelet Count 73 K/uL (130-400); RDW Coefficient of Variation 23.7 % (11.5-14.5); Red Blood Count 2.03 M/uL (4.20-5.40); White Blood Count 15.83 K/ul (4.8-10.8)
[2023-08-17 13:39] LABS: Anisocytosis Present; Basophils # (auto) 0.02 K/uL (0.00-0.20); Basophils % (auto) 0.1 %; Eosinophils # (auto) 0.34 K/uL (0.00-0.50); Eosinophils % (auto) 2.1 %; Immature Granulocytes # (auto) 0.11 K/uL (0.01-0.20); Immature Granulocytes % (auto) 0.7 %; Lymphocytes # (auto) 2.61 K/uL (1.20-3.40); Lymphocytes % (auto) 16.5 %; Macrocytosis Present; Monocytes # (auto) 0.64 K/uL (0.11-0.59); Neutrophils # (auto) 12.11 K/uL (1.40-6.50); Neutrophils % (auto) 76.6 %; Ovalocytes 1+; Polychromasia 1+; Tear Drop Cells 1+
--- NOTE | 2023-08-18 07:01 | Hospitalist Progress Note ---
Date of Service August 18, 2023 Assessment & Plan (1) Comfort measures only status: Plan: Pt is a 73 y/o female with PMH of ventricular tachycardia, liver abscess, CAD, IBS, RA, and HLD presenting to the hospital due to SOB and lethargy. 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 - Did improve briefly on 08/13 - mentation now waxes and wanes, currently AO x 1 (person) Hyperkalemia - K 6.1 on admission, without hemodynamic instability or arrhythmia - S/p calcium gluconate x2, insulin/dextrose x3, and IVF RHIANNON - Cr 1.28 on admission; baseline WNL 0.6-0.8. - Cr continue to increase despite administration of IVF and albumin; pt is intravascularly depleted and third spacing. 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 - Nephrology has signed off Hypoglycemia - BS 66 on admission; no documented hx of DM. - Patient unable to maintain blood sugar levels in the normal range. - Likely due to nutrition status - Continue supportive care. Chronic anemia - Hgb decreased but stable. No signs of active bleeding Urosepsis - Patient presented with urinary symptoms. - UA grossly infected. ESBL on urine cx. Blood cx negative. - Patient adequately treated with ceftriaxone and zosyn. - No further abx indicated at this time. HFrEF - Appears stable as ECHO showed no significant change since 2020: EF 40-45%. - CT chest showed evidence of pulmonary edema and pulmonary effusions Elevated troponin - Has since peaked and downtrended. Likely demand in the setting of acute illness/AMS CAD - No acute concerns; no symptoms, no EKG changes, troponin downtrended Elevated bilirubin - Pt has extensive biliary/hepatic hx including liver abscess and biliary stents. - AST minimally elevated, ALT WNL; alk phos also elevated Thrombocytopenia - Plts 65 on admission, does appear to have been low since 06/2023. 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 Isolation: Contact Dispo:Med/Surg (2) Urinary tract infection: (3) Lethargy: (4) Acute metabolic encephalopathy: (5) Acute hypoxic respiratory failure: (6) HFrEF (heart failure with reduced ejection fraction): (7) Elevated troponin: (8) Acute kidney injury: (9) Hyperkalemia: (10) Hypoglycemia: (11) Asthma: (12) GERD (gastroesophageal reflux disease): (13) Insomnia: (14) Coronary artery disease: (15) Hypomagnesemia: (16) Anemia: (17) Depression: (18) Elevated bilirubin: (19) Thrombocytopenia: Admission and Anticipated Discharge Date Admission Date: August 07, 2023 Supervising Physician Co-Signing Physician Notes I personally examined the patient and verified all corbett points of history and exam, discussed case, and agree with decision making with Dr Amari vincent HPI/ERIN from pt. notes that she's been more awake. 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 with her waking up a bit more and having come through severe illnesses before, cautiously optimistic - i expresse d that she still has a significant comorbidity burden but he understands this and would like to take things day by day - which is reasonable given her prior situations - and therefore now SNF/skilled goal rather than SNF/hospcie goal Leukocytosis/Hypernatremia/Elevated LFT - All secondary to multisystem organ dysfunction from likely multisystem primary pathology - follow, IVF, supportive care. consider liver biopsy prior to dc Team has had discussion daily with him that considering her extensive comorbidities - correction prognosis will likely be poor. Encephalopathy metabolic - RHIANNON/hyperkalemia and probable multifactorial. supportive care. Ischemia Cardiomyopathy with CAD - EF 40-45%. Right ventricle not visualized. Concern of underlying liver ds - Work up could not be completed to rule out cirrhosis - was ordered CT liver 4 phase but couldn't be completed due to renal function. Chronic liver cysts probable fluid overload leading to chronic liver congestion will likely try to get liver biopsy prior to dc. Swallowing dysfunction - Speech eval done 08/13. VFS with aspiration. After prior team had discussion with patient - Diet ordered for comfort feeding and permission aspiration allowed. UTIESBL - completed treatment Recent C. difficile Severe Malnutrition Subjective 08/18: Patient comfortable in bed upon arrival. Denies pain. No fevers, chills, nausea, vomiting, or diarrhea. Responds to voice, AO x 1 (person only). Family not at bedside upon evaluation. Review of Systems Review of Systems: As per HPI Physical Exam Physical Exam: Constitutional: ill appearing, no acute distress HEENT: normocephalic, no conjunctival injection, MMM CV: RRR, clinically well perfused, radial pulses 2+ symmetric, dependent edema to BL UE, no LE edema Respiratory: No increased work of breathing, CTAB Skin: warm, dry, some bruising noted of right arm Neuro: alert to my voice, unable to follow commands, AO x 1 (person) Resident Activity Tracking Resident Involvement: Resident Care Provided Care Provided: Adult Hospital Medicine (2) Urinary tract infection Hematuria presence: without hematuria Urinary tract infection type: site unspecified Qualified Code(s): N39.0 - Urinary tract infection, site not specified
[2023-08-18] MEDS: DEXTROSE 5% 1,000 ML IV SCH ×2 (08:04→20:10)
[2023-08-18] MEDS: MoRPHine SULFATE 2 MG/ML CARP IV PRN (16:59)
--- NOTE | 2023-08-18 17:28 | Billing Data ---
Date of Service August 18, 2023 Coding Level of Care Code [id number] SUB INP/OBS CARE MIN
[2023-08-18] MEDS ORDERED: Nursing to Pharmacy Communication SCH (20:30)
[2023-08-19] MEDS: LEVOTHYROXINE SODIUM 75 MCG TABLET PO SCH (05:37)
[2023-08-19] MEDS: MoRPHine SULFATE 2 MG/ML CARP IV PRN (08:27)
[2023-08-19] MEDS: DEXTROSE 5% 1,000 ML IV SCH ×2 (08:30→20:22)
[2023-08-19] MEDS: ESCITALOPRAM OXALATE 10 MG TAB PO SCH (08:31)
--- NOTE | 2023-08-19 17:57 | Hospitalist Progress Note ---
Date of Service August 19, 2023 Assessment & Plan (1) Comfort measures only status: Plan: Pt is a 73 y/o female with PMH of ventricular tachycardia, liver abscess, CAD, IBS, RA, and HLD presenting to the hospital due to SOB and lethargy. 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 - Did improve briefly on 08/13 - mentation now waxes and wanes, currently AO x 1 (person) Hyperkalemia - K 6.1 on admission, without hemodynamic instability or arrhythmia - S/p calcium gluconate x2, insulin/dextrose x3, and IVF RHIANNON - Cr 1.28 on admission; baseline WNL 0.6-0.8. - Cr continue to increase despite administration of IVF and albumin; pt is intravascularly depleted and third spacing. 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 - Nephrology has signed off Hypoglycemia - BS 66 on admission; no documented hx of DM. - Patient unable to maintain blood sugar levels in the normal range. - Likely due to nutrition status - Continue supportive care. Chronic anemia - Hgb decreased but stable. No signs of active bleeding Urosepsis - Patient presented with urinary symptoms. - UA grossly infected. ESBL on urine cx. Blood cx negative. - Patient adequately treated with ceftriaxone and zosyn. - No further abx indicated at this time. HFrEF - Appears stable as ECHO showed no significant change since 2020: EF 40-45%. - CT chest showed evidence of pulmonary edema and pulmonary effusions Elevated troponin - Has since peaked and downtrended. Likely demand in the setting of acute illness/AMS CAD - No acute concerns; no symptoms, no EKG changes, troponin downtrended Elevated bilirubin - Pt has extensive biliary/hepatic hx including liver abscess and biliary stents. - AST minimally elevated, ALT WNL; alk phos also elevated Thrombocytopenia - Plts 65 on admission, does appear to have been low since 06/2023. 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 REPRESENTATIVE Isolation: Contact Dispo:Med/Surg (2) Urinary tract infection: (3) Lethargy: (4) Acute metabolic encephalopathy: (5) Acute hypoxic respiratory failure: (6) HFrEF (heart failure with reduced ejection fraction): (7) Elevated troponin: (8) Acute kidney injury: (9) Hyperkalemia: (10) Hypoglycemia: (11) Asthma: (12) GERD (gastroesophageal reflux disease): (13) Insomnia: (14) Coronary artery disease: (15) Hypomagnesemia: (16) Anemia: (17) Depression: (18) Elevated bilirubin: (19) Thrombocytopenia: Admission and Anticipated Discharge Date Admission Date: August 07, 2023 Subjective 08/18: Patient noted that she was uncomfortable in bed upon arrival and requested repositioning. She noted that otherwise she is not experiencing any pain. She denies pain. fevers, chills, nausea, vomiting, or diarrhea. Patient AO x 3 and conversive. Patient noted that she understands her current choice to be comfort measures only, but elected to continue receiving IVF. She noted that she does not desire additional labs, testing, and procedures. Family not at bedside during visit. Review of Systems Review of Systems: As per HPI Physical Exam Physical Exam: Constitutional: ill appearing, no acute distress HEENT: normocephalic, no conjunctival injection, MMM CV: RRR, clinically well perfused, radial pulses 2+ symmetric, dependent edema to BL UE, no LE edema Respiratory: No increased work of breathing, CTAB Skin: warm, dry, some bruising noted of right arm Neuro: alert to my voice, unable to follow commands, AO x 1 (person) Results & Data Results & Data Vital Signs (Past 12 Hours) Vital Signs O2 Del Method 08/19/23 09:20 Room Air (2) Urinary tract infection Hematuria presence: without hematuria Urinary tract infection type: site unspecified Qualified Code(s): N39.0 - Urinary tract infection, site not specified
--- NOTE | 2023-08-19 18:02 | Hospitalist Progress Note ---
Date of Service August 19, 2023 Assessment & Plan (1) Comfort measures only status: Plan: Pt is a 73 y/o female with PMH of ventricular tachycardia, liver abscess, CAD, IBS, RA, and HLD presenting to the hospital due to SOB and lethargy. Comfort measures only status - appeared to be actively dying with severe mutlifactorial acute on chronic illness - in discussion with family transitioned to comfort care - remarkably she is now awake and alert; changing from comfort measures to cautiously ongoing management of comorbidities - aware that her change of status is a remarkable surprise but that she still does have a very large, very significant illness burden. Acute metabolic encephalopathy - Patient initially altered in the setting of sepsis 2/2 urinary source and hepatic encephalopathy - CT head negative - Elevated ammonia - most likely liver disease can't entirely rule out type 4 RTA; liver biopsy has been contemplated at least for last several admissions (with about half of GI thinking occult liver disease present/undefined/biopsy may be helpful; about half thinking not --> notes that liver biopsy has actually probably been contemplated for ~2yrs) Hyperkalemia - now better RHIANNON - now better Hypoglycemia - BS 66 on admission; no documented hx of DM. - Patient unable to maintain blood sugar levels in the normal range. - Likely due to nutrition status - Continue supportive care. Chronic anemia - Hgb decreased but stable. No signs of active bleeding Urosepsis - Patient presented with urinary symptoms. - UA grossly infected. ESBL on urine cx. Blood cx negative. - Patient adequately treated with ceftriaxone and zosyn. - No further abx indicated at this time. HFrEF - Appears stable as ECHO showed no significant change since 2020: EF 40-45%. - CT chest showed evidence of pulmonary edema and pulmonary effusions Elevated troponin - Has since peaked and downtrended. Likely demand in the setting of acute illness/AMS CAD - No acute concerns; no symptoms, no EKG changes, troponin downtrended Elevated bilirubin - Pt has extensive biliary/hepatic hx including liver abscess and biliary stents. - AST minimally elevated, ALT WNL; alk phos also elevated Thrombocytopenia - Plts 65 on admission, does appear to have been low since 06/2023. 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 INSTRUCTOR Isolation: Contact Dispo:Med/Surg, anticipate SNF (2) Urinary tract infection: (3) Lethargy: (4) Acute metabolic encephalopathy: (5) Acute hypoxic respiratory failure: (6) HFrEF (heart failure with reduced ejection fraction): (7) Elevated troponin: (8) Acute kidney injury: (9) Hyperkalemia: (10) Hypoglycemia: (11) Asthma: (12) GERD (gastroesophageal reflux disease): (13) Insomnia: (14) Coronary artery disease: (15) Hypomagnesemia: (16) Anemia: (17) Depression: (18) Elevated bilirubin: (19) Thrombocytopenia: Admission and Anticipated Discharge Date Admission Date: August 07, 2023 Subjective more awake and alert/ d/w resident physician that she would like fluids/support but no further labs/testing. later d/ w pt/ and she still noted that she didn't really want further testing but semeed to want further treatment - asked her to discuss further with arelis given that her situation has changed so much (hopefully for hte better) but that she still has a lot ot manage and determining underlying etiologies in more depth could be quite helpful Review of Systems Review of Systems: All systems reviewed & are unremarkable except as noted in HPI & below Physical Exam Physical Exam: awake and alert pleasant nad heent nc at mmm breathing unlabored no accessory muscles good effort skin without rashes pallor or icterus Results & Data Results & Data Vital Signs (Past 12 Hours) Vital Signs O2 Del Method 08/19/23 09:20 Room Air PG Care Time/CCT Total # of Minutes Spent Total Time Spent with Patient: Total time spent is greater than 50% in coordination of care (as documented) at patient's floor/unit and/or counseling patient: Coding Level of Care Code 17181 SUB INP/OBS CARE 3/50MIN Diagnoses Comfort measures only status Z51.5 Urinary tract infection N39.0 Hematuria presence: without hematuria Urinary tract infection type: site unspecified Lethargy R53.83 Acute metabolic encephalopathy G93.41 Acute hypoxic respiratory failure J96.01 HFrEF (heart failure with reduced ejection fraction) I50.20 Elevated troponin R79.89 Acute kidney injury N17.9 Hyperkalemia E87.5 Hypoglycemia E16.2 Asthma J45.909 GERD (gastroesophageal reflux disease) K21.9 Insomnia G47.00 Coronary artery disease I25.10 Hypomagnesemia E83.42 Anemia D64.9 Depression F32.9 Elevated bilirubin R17 Thrombocytopenia D69.6 (2) Urinary tract infection Hematuria presence: without hematuria Urinary tract infection type: site unspecified Qualified Code(s): N39.0 - Urinary tract infection, site not specified
--- NOTE | 2023-08-19 18:15 | Billing Data ---
Date of Service August 19, 2023 Coding Level of Care Code 53793 SUB INP/OBS CARE MIN
[2023-08-20] MEDS: LEVOTHYROXINE SODIUM 75 MCG TABLET PO SCH (05:20)
--- NOTE | 2023-08-20 06:55 | Hospitalist Progress Note ---
"Date of Service August 20, 2023 Assessment & Plan (1) Comfort measures only status: Plan: Pt is a 73 y/o female with PMH of ventricular tachycardia, liver abscess, CAD, IBS, RA, and HLD presenting to the hospital due to SOB and lethargy. Comfort measures only status | Discontinued 08/20 - Appeared to be actively dying with severe multifactorial acute on chronic illness - in discussion with family transitioned to comfort care 08/10 - Remarkably she is now awake and alert; changing from comfort measures to cautiously ongoing management of comorbidities - aware that her change of status is a remarkable surprise but that she still does have a very large, very significant illness burden - Upon discussion with patient and , decision was made to lift DESK EDITOR status 08/20 --- Labs now pending, will adjust for acute abnormalities PRN Acute metabolic encephalopathy - Patient initially altered in the setting of sepsis 2/2 urinary source and hepatic encephalopathy - CT head negative - Elevated ammonia - most likely liver disease can't entirely rule out type 4 RTA; liver biopsy has been contemplated at least for last several admissions (with about half of GI thinking occult liver disease present/undefined/biopsy may be helpful; about half thinking not --> notes that liver biopsy has actually probably been contemplated for ~2yrs) --- Patient and electing to hold off on liver biopsy until patient is 'feeling better', explained to patient that specific treatment for her illness is limited w/o tissue diagnosis Hyperkalemia - now better RHIANNON - now better Hypoglycemia - BS 66 on admission; no documented hx of DM. - Patient unable to maintain blood sugar levels in the normal range. - Likely due to nutrition status - Continue supportive care. Chronic anemia - Hgb decreased but stable. No signs of active bleeding Urosepsis - Patient presented with urinary symptoms. - UA grossly infected. ESBL on urine cx. Blood cx negative. - Patient adequately treated with ceftriaxone and zosyn. - No further abx indicated at this time. HFrEF - Appears stable as ECHO showed no significant change since 2020: EF 40-45%. - CT chest showed evidence of pulmonary edema and pulmonary effusions Elevated troponin - Has since peaked and downtrended. Likely demand in the setting of acute illness/AMS CAD - No acute concerns; no symptoms, no EKG changes, troponin downtrended Elevated bilirubin - Pt has extensive biliary/hepatic hx including liver abscess and biliary stents. - AST minimally elevated, ALT WNL; alk phos also elevated Thrombocytopenia - Plts 65 on admission, does appear to have been low since 06/2023. - May be related to suspected underlying liver disease D/t lifting of DESK EDITOR Chronic Condition Management: - Insomnia: nortriptyline (holding to avoid sedation) - Hypothyroidism: levothyroxine (restarted) - GERD: lansoprazole (no GERD sx, holding) - Depression: lexapro (resumed at 10mg) - Asthma: singulair, albuterol PRN (no wheezing) FEN: Low Na, Pureed Code status: DNR/DNI DVT ppx: None, Lovenox Isolation: Contact Dispo:Med/Surg, anticipate SNF dc Thurs (2) Urinary tract infection: (3) Lethargy: (4) Acute metabolic encephalopathy: (5) Acute hypoxic respiratory failure: (6) HFrEF (heart failure with reduced ejection fraction): (7) Elevated troponin: (8) Acute kidney injury: (9) Hyperkalemia: (10) Hypoglycemia: (11) Asthma: (12) GERD (gastroesophageal reflux disease): (13) Insomnia: (14) Coronary artery disease: (15) Hypomagnesemia: (16) Anemia: (17) Depression: (18) Elevated bilirubin: (19) Thrombocytopenia: Admission and Anticipated Discharge Date Admission Date: August 07, 2023 Supervising Physician Co-Signing Physician Notes I personally examined the patient and verified all corbett points of history and exam, discussed case, and agree with decision making with Dr Fitzpatrick feels surprisingly good. Looking forward to SNF. And multiple discussions with resident physician, patient/ have clearly defined goals of careand now are back to much more in line with ongoing medical management, labs, etc. The only thing they are uncertain about at this point is liver biopsy. Tried to discuss in depth both the specifics of the procedure, as well as what the information might impact as far as her prognosis/management. Vitals noted, in general she is awake and alert pleasant no distress. HEENT normocephalic atraumatic mucous membranes moist. Breathing unlabored no accessory muscle use good effort. Skin shows no rashes no pallor or icterus. Neuro without focal deficits Leukocytosis/Hypernatremia/Elevated LFT - All secondary to multisystem organ dysfunction from likely multisystem primary pathology - improved nicely. I do believe a liver biopsy would be helpfulif it shows cirrhosis, certainly her story would make sense, and unfortunately it would outline her prognosis fairly clearly. At the same time if it did not show cirrhosis, then are less viable but still plausible differentials such as some degree of adrenal insuf ficiency/cortisol deficiency and a type IV RTA might come to the forefront. They are considering. Encephalopathy metabolic - RHIANNON/hyperkalemia and probable multifactorial. Amazingly seems to have totally resolved Ischemia Cardiomyopathy with CAD - EF 40-45%. Right ventricle not visualized. Concern of underlying liver ds - Work up could not be completed to rule out cirrhosis - was ordered CT liver 4 phase but couldn't be completed due to renal function. Chronic liver cysts see above. I do suspect a liver biopsy would be helpful. At the same time they are considering. Swallowing dysfunction - Speech eval done 08/13. VFS with aspiration. After prior team had discussion with patient - Diet ordered for comfort feeding and permission aspiration allowed. UTIESBL - completed treatment Recent C. difficile Severe Malnutrition Anticipate SNF Subjective 08/20: Upon arrival this morning, patient was comfortable in bed. She denies any pain or discomfort. She presented as AO x 4 this morning. Brief conversation with patient regarding goals of care, at this time, patient elected to not proceed with additional lab work and noted that she would prefer to be DESK EDITOR, which would mean that she would not receive any additional labs, tests, or treatments; only measures to keep her comfortable. Later on, was present at bedside and a repeat conversation was started regarding goals of care in an effort to align the goals of patient's inpatient care team and her family. With present, patient was agreeable to proceed with labs if they could come from her currently established PICC line, she noted that she did not want to be 'stuck' again. Furthermore, noted that they did not want to proceed with a liver biopsy at this time, as he stated 'she is not yet well enough for this procedure'. Patient's relayed that they would like to forgo DESK EDITOR status and return to treating her comorbidities, performing labs, and treating abnormalities. He stated that their goal is now to proceed with physical therapy and transition to SNF. Patient remained AO x 4 during this conversation and briefly joked with her , correcting him that they had been for '52 years' rather than 50. Review of Systems Constitutional: As per HPI Physical Exam Physical Exam: Constitutional: ill appearing, no acute distress HEENT: normocephalic, no conjunctival injection, MMM CV: RRR, clinically well perfused, radial pulses 2+ symmetric, dependent edema to BL UE, no LE edema Respiratory: No increased work of breathing, CTAB Skin: warm, dry, some bruising noted of right arm Neuro: alert to voice, follows commands, AO x 4 Results & Data Results & Data Vital Signs (Past 12 Hours) Vital Signs O2 Del Method 08/19/23 20:40 Room Air Resident Activity Tracking Resident Involvement: Resident Care Provided Care Provided: Adult Hospital Medicine (2) Urinary tract infection Hematuria presence: without hematuria Urinary tract infection type: site unspecified Qualified Code(s): N39.0 - Urinary tract infection, site not specified"
[2023-08-20] MEDS: ESCITALOPRAM OXALATE 10 MG TAB PO SCH (07:42)
[2023-08-20] MEDS: DEXTROSE 5% 1,000 ML IV SCH (07:44)
[2023-08-20 13:24] LABS: Hematocrit (blood only) 23.1 % (37.0-47.0); Hemoglobin 7.1 g/dl (12.0-16.0); Mean Corpuscular Hemoglobin 36.4 pg (25.0-34.0); Mean Corpuscular Hgb Conc 30.7 g/dL (32.0-36.0); Mean Corpuscular Volume 118.5 fL (80.0-100.0); Platelet Count 54 K/uL (130-400); RDW Standard Deviation 91.5 fL (36.4-46.3); Red Blood Count 1.95 M/uL (4.20-5.40); White Blood Count 9.37 K/ul (4.8-10.8)
[2023-08-20 13:35] LABS: Anisocytosis Present; Basophils # (auto) 0.03 K/uL (0.00-0.20); Basophils % (auto) 0.3 %; Eosinophils # (auto) 0.21 K/uL (0.00-0.50); Eosinophils % (auto) 2.2 %; Immature Granulocytes # (auto) 0.04 K/uL (0.01-0.20); Immature Granulocytes % (auto) 0.4 %; Lymphocytes # (auto) 1.33 K/uL (1.20-3.40); Lymphocytes % (auto) 14.2 %; Macrocytosis Present; Monocytes # (auto) 0.69 K/uL (0.11-0.59); Monocytes % (auto) 7.4 %; Neutrophils # (auto) 7.07 K/uL (1.40-6.50); Neutrophils % (auto) 75.5 %; Polychromasia 2+
[2023-08-20 13:36] LABS: Albumin Globulin Ratio 0.8 (0.9-2); Albumin Level 2.1 gm/dl (3.4-5.0); BUN Creatinine Ratio 27.3 (10-20); Bilirubin,Total 0.9 mg/dl (0.2-1.0); Calcium 7.3 mg/dl (8.6-10.3); Creatinine Clr Calc Pharmacy 74.2 ml/min; Est GFR (African American) 109.4 ml/min; Est GFR (Non-African American) 94.4 ml/min; Globulin 2.8 gm/dl (2.5-4.0); Potassium 3.6 mmol/L (3.5-5.1); Total Protein 4.9 gm/dl (6.0-8.3)
--- NOTE | 2023-08-20 16:42 | Billing Data ---
Date of Service August 20, 2023 Coding Level of Care Code 00675 SUB INP/OBS CARE MIN
[2023-08-20 20:50] LABS: INR 1.2 (0.9-1.1); Prothrombin Time 12.8 Seconds (9.0-12.0)
[2023-08-21] MEDS: LEVOTHYROXINE SODIUM 75 MCG TABLET PO SCH (05:23)
[2023-08-21 07:08] LABS: Hematocrit (blood only) 19.2 % (37.0-47.0); Mean Corpuscular Hemoglobin 37.3 pg (25.0-34.0); Mean Corpuscular Hgb Conc 31.3 g/dL (32.0-36.0); Mean Corpuscular Volume 119.3 fL (80.0-100.0); Platelet Count 64 K/uL (130-400); RDW Coefficient of Variation 21.1 % (11.5-14.5); RDW Standard Deviation 92.7 fL (36.4-46.3); Red Blood Count 1.61 M/uL (4.20-5.40); White Blood Count 7.73 K/ul (4.8-10.8)
[2023-08-21] MEDS ORDERED: SODIUM CHLORIDE 0.9% 250 ML IV PRN ×2 (07:12→07:46)
--- NOTE | 2023-08-21 07:15 | Hospitalist Progress Note ---
"Date of Service August 21, 2023 Assessment & Plan (1) Comfort measures only status: Plan: Pt is a 73 y/o female with PMH of ventricular tachycardia, liver abscess, CAD, IBS, RA, and HLD presenting to the hospital due to SOB and lethargy. 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 --- Labs now pending, will adjust for acute abnormalities PRN Acute metabolic encephalopathy | Hepatic Encephalopathy vs Urosepsis - Patient initially altered in the setting of sepsis 2/2 urinary source and hepatic encephalopathy - CT head negative - Elevated ammonia levels on presentation; now resolved most likely liver disease cant r/o type 4 RTA; liver bx has been contemplated for last several admissions (with about half of GI thinking occult liver disease present/undefined/biopsy may be helpful; about half thinking not --> notes that liver biopsy has actually probably been contemplated for ~2yrs) --- Patient and electing to hold off on liver biopsy until patient is 'feeling better', explained to patient that specific treatment for her illness is limited w/o tissue diagnosis Hypoglycemia - BS 66 on admission; no documented hx of DM. - Patient unable to maintain blood sugar levels in the normal range. - Likely due to nutrition status - Continue supportive care. Chronic anemia - Hgb decreased but stable. No signs of active bleeding --- Hgb decreased to 6.0 this AM requiring transfusion, type and cross obtained for 2 units, 1 unit ordered. Consent obtained and placed in chart. --- No evidence of acute blood loss, etiology likely multifactorial; malnutrition, iron deficiency, hemodilution, anemia of chronic disease --- Apart from mild tachycardia, patient otherwise hemodynamically stable Urosepsis - Patient presented with urinary symptoms. - UA grossly infected. ESBL on urine cx. Blood cx negative. - Patient adequately treated with ceftriaxone and zosyn. - No further abx indicated at this time. Elevated troponin | CAD | HFrEF - Troponin has since peaked and downtrended; likely demand in the setting of acute illness/AMS - No acute concerns CAD; no symptoms, no EKG changes, troponin downtrended - HFrEF appears stable (Echo w/ EF 40-45% in 2020), CT chest w/ pulmonary edema/pulmonary effusions Elevated Transaminases | Elevated Bilirubin | Thrombocytopenia - Likely 2/2 extensive biliary/hepatic disease burden including liver abscesses and bilary stending - Patient and family electing to post-pone liver biopsy for diagnosis to later date given patient's unstable clinical picture Despite risks/benefits discussion 08/20 --- Transaminases normal today, Alk Phos remains elevated, Bilirubin and ammonia levels wnl RHIANNON - Resolved Hyperkalemia - Resolved D/t lifting of KISS MACHINE OPERATOR Chronic Condition Management: - Insomnia: nortriptyline (holding to avoid sedation) - Hypothyroidism: levothyroxine (restarted) - GERD: lansoprazole (no GERD sx, holding) - Depression: lexapro (resumed at 10mg) - Asthma: singulair, albuterol PRN (no wheezing) FEN: Low Na, Pureed Code status: DNR/DNI DVT ppx: None, Lovenox Isolation: Contact Dispo:Med/Surg, anticipate SNF (2) Urinary tract infection: (3) Lethargy: (4) Acute metabolic encephalopathy: (5) Acute hypoxic respiratory failure: (6) HFrEF (heart failure with reduced ejection fraction): (7) Elevated troponin: (8) Acute kidney injury: (9) Hyperkalemia: (10) Hypoglycemia: (11) Asthma: (12) GERD (gastroesophageal reflux disease): (13) Insomnia: (14) Coronary artery disease: (15) Hypomagnesemia: (16) Anemia: (17) Depression: (18) Elevated bilirubin: (19) Thrombocytopenia: Admission and Anticipated Discharge Date Admission Date: August 07, 2023 Supervising Physician Co-Signing Physician Notes I personally examined the patient and verified all corbett points of history and exam, discussed case, and agree with decision making with Dr Amari matos, had transfusion. notes no new issues. Vitals noted, resting comfortably no appearance of distress breathing unlabored no accessory muscle use no overt bleeding. anemia - ?lab variation + hypoproliferative + phlebotomy? hemodynamics reassuring. no overt bleeding. transfuse due to low counts - ordered retic although not certain if this was able to be sent prior to transfusions. follow clinically and follow Hgb Leukocytosis/Hypernatremia/Elevated LFT - All secondary to multisystem organ dysfunction from likely multisystem primary pathology - improved nicely. I do believe a liver biopsy would be helpfulif it shows cirrhosis, certainly her story would make sense, and unfortunately it would outline her prognosis fairly clearly. At the same time if it did not show cirrhosis, then are less viable but still plausible differentials such as some degree of adrenal i nsufficiency/cortisol deficiency and a type IV RTA might come to the forefront. They are considering. Encephalopathy metabolic - RHIANNON/hyperkalemia and probable multifactorial. Amazingly seems to have totally resolved Ischemia Cardiomyopathy with CAD - EF 40-45%. Right ventricle not visualized. Concern of underlying liver ds - Work up could not be completed to rule out cirrhosis - was ordered CT liver 4 phase but couldn't be completed due to renal function. Chronic liver cysts see above. I do suspect a liver biopsy would be helpful. At the same time they are considering. Swallowing dysfunction - Speech eval done 08/13. VFS with aspiration. After prior team had discussion with patient - Diet ordered for comfort feeding and permission aspiration allowed. UTIESBL - completed treatment Recent C. difficile Severe Malnutrition Anticipate SNF Subjective 08/21: Patient was resting in bed upon arrival, she notes discomfort in her bottom and requested repositioning in bed. No patient or nursing concerns for active bleeding. Nursing notes skin breakdown present on patient's buttocks, protective dressing re-applied. She denies additional concerns. Discussed blood transfusion with patient and , pair agreeable to proceed with transfusion. Risks and benefits discussed, consent obtained and placed in chart. Review of Systems Constitutional: As per HPI Physical Exam Physical Exam: Constitutional: ill appearing, no acute distress HEENT: normocephalic, no conjunctival injection, MMM CV: RRR, clinically well perfused, radial pulses 2+ symmetric, dependent edema to BL UE, no LE edema, no acute bleeding noted Respiratory: No increased work of breathing, CTAB Skin: warm, dry, some bruising noted of right arm Neuro: alert to voice, follows commands, AO x 3 (slowed responses) Results & Data Results & Data Vital Signs (Past 12 Hours) Vital Signs Temp Pulse Resp BP Pulse Ox O2 Del Method 08/20/23 20:10 Room Air 08/20/23 20:01 36.8 C 82 18 115/75 99 Room Air Resident Activity Tracking Resident Involvement: Resident Care Provided Care Provided: Adult Hospital Medicine (2) Urinary tract infection Hematuria presence: without hematuria Urinary tract infection type: site unspecified Qualified Code(s): N39.0 - Urinary tract infection, site not specified"
[2023-08-21 07:50] LABS: Albumin Globulin Ratio 0.9 (0.9-2); Albumin Level 1.8 gm/dl (3.4-5.0); BUN Creatinine Ratio 31.1 (10-20); Bilirubin,Total 0.9 mg/dl (0.2-1.0); Calcium 6.8 mg/dl (8.6-10.3); Creatinine Clr Calc Pharmacy 90.7 ml/min; Est GFR (African American) 116.8 ml/min; Est GFR (Non-African American) 100.8 ml/min; Globulin 2.1 gm/dl (2.5-4.0); Potassium 3.4 mmol/L (3.5-5.1); Total Protein 3.9 gm/dl (6.0-8.3)
[2023-08-21] MEDS: ESCITALOPRAM OXALATE 10 MG TAB PO SCH (08:04)
[2023-08-21] MEDS: ENOXAPARIN INJ 40 MG/0.4 ML SYR SQ SCH (08:04)
--- NOTE | 2023-08-21 16:01 | Billing Data ---
Date of Service August 21, 2023 Coding Level of Care Code 29892 SUB INP/OBS CARE MIN
[2023-08-21 19:40] LABS: Reticulocyte % 4.3 % (0.5-2.0); Reticulocytes # 0.08 10^6/uL (0.02-0.10)
[2023-08-22] MEDS: LEVOTHYROXINE SODIUM 75 MCG TABLET PO SCH (05:49)
[2023-08-22] MEDS: ESCITALOPRAM OXALATE 10 MG TAB PO SCH (07:35)
[2023-08-22] MEDS: ENOXAPARIN INJ 40 MG/0.4 ML SYR SQ SCH (07:36)
--- NOTE | 2023-08-22 07:36 | Hospitalist Progress Note ---
"Date of Service August 22, 2023 Assessment & Plan (1) Comfort measures only status: Plan: Pt is a 73 y/o female with PMH of ventricular tachycardia, liver abscess, CAD, IBS, RA, and HLD presenting to the hospital due to SOB and lethargy. 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 --- Labs now pending, will adjust for acute abnormalities PRN Acute metabolic encephalopathy | Hepatic Encephalopathy vs Urosepsis - Patient initially altered in the setting of sepsis 2/2 urinary source and hepatic encephalopathy - CT head negative - Elevated ammonia levels on presentation; now resolved most likely liver disease cant r/o type 4 RTA; liver bx has been contemplated for last several admissions (with about half of GI thinking occult liver disease present/undefined/biopsy may be helpful; about half thinking not --> notes that liver biopsy has actually probably been contemplated for ~2yrs) --- Patient and electing to hold off on liver biopsy until patient is 'feeling better', explained to patient that specific treatment for her illness is limited w/o tissue diagnosis Hypoglycemia - BS 66 on admission; no documented hx of DM. - Patient unable to maintain blood sugar levels in the normal range. - Likely due to nutrition status - Continue supportive care. Chronic anemia - Hgb decreased but stable. No signs of active bleeding - No evidence of acute blood loss, etiology likely multifactorial; malnutrition, iron deficiency, hemodilution, anemia of chronic disease - S/p 1 unit PRBC 08/21 --- F/u labs pending, patient remains hemodynamically stable Urosepsis - Patient presented with urinary symptoms. - UA grossly infected. ESBL on urine cx. Blood cx negative. - Patient adequately treated with ceftriaxone and zosyn. - No further abx indicated at this time. Elevated troponin | CAD | HFrEF - Troponin has since peaked and downtrended; likely demand in the setting of acute illness/AMS - No acute concerns CAD; no symptoms, no EKG changes, troponin downtrended - HFrEF appears stable (Echo w/ EF 40-45% in 2020), CT chest w/ pulmonary edema/pulmonary effusions Elevated Transaminases | Elevated Bilirubin | Thrombocytopenia - Likely 2/2 extensive biliary/hepatic disease burden including liver abscesses and bilary stending - Patient and family electing to post-pone liver biopsy for diagnosis to later date given patient's unstable clinical picture Despite risks/benefits discussion 08/20 - 08/21 Transaminases normal, Alk Phos remains elevated, Bilirubin and ammonia levels wnl --- F/u labs pending RHIANNON - Resolved Hyperkalemia - Resolved 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 Chronic Condition Management: - Insomnia: nortriptyline (holding to avoid sedation) - Hypothyroidism: levothyroxine (restarted) - GERD: lansoprazole (no GERD sx, holding) - Depression: lexapro (resumed at 10mg) - Asthma: singulair, albuterol PRN (no wheezing) FEN: Low Na, Pureed Code status: DNR/DNI DVT ppx: None, Lovenox Isolation: Contact Dispo:Med/Surg, anticipate SNF (2) Urinary tract infection: (3) Lethargy: (4) Acute metabolic encephalopathy: (5) Acute hypoxic respiratory failure: (6) HFrEF (heart failure with reduced ejection fraction): (7) Elevated troponin: (8) Acute kidney injury: (9) Hyperkalemia: (10) Hypoglycemia: (11) Asthma: (12) GERD (gastroesophageal reflux disease): (13) Insomnia: (14) Coronary artery disease: (15) Hypomagnesemia: (16) Anemia: (17) Depression: (18) Elevated bilirubin: (19) Thrombocytopenia: Admission and Anticipated Discharge Date Admission Date: August 07, 2023 Supervising Physician Co-Signing Physician Notes I personally examined the patient and verified all corbett points of history and exam, discussed case, and agree with decision making with Dr Fitzpatrick watching a hallmark movie with her . he's not sure how she did with breakfast, she doesn't really say much today. Vitals noted, awake intently watching a [email or web address] movie nad heent nc at mmm breathing unlabored no accessory muscles good effort skin no rashes no pallor or icterus anemia - ?lab variation + hypoproliferative + phlebotomy? hemodynamics reassuring. no overt bleeding. transfused. follow. retic index was low (expected) but also accuracy unclear since time of draw suggests it was after transfusion Leukocytosis/Hypernatremia/Elevated LFT - All secondary to multisystem organ dysfunction from likely multisystem primary pathology - improved nicely. I do believe a liver biopsy would be helpfulif it shows cirrhosis, certainly her story would make sense, and unfortunately it would outline her prognosis fairly clearly. At the same time if it did not show cirrhosis, then are less viable but still plausible differentials such as some degree of adrenal insufficiency/cortisol deficiency and a type IV RTA might come to the forefront. They are considering. Encephalopathy metabolic - RHIANNON/hyperkalemia and probable multifactorial. Amazingly seems to have totally resolved Ischemia Cardiomyopathy with CAD - EF 40-45%. Right ventricle not visualized. Concern of underlying liver ds - Work up could not be completed to rule out cirrhosis - was ordered CT liver 4 phase but couldn't be completed due to renal function. Chronic liver cysts see above. I do suspect a liver biopsy would be helpful. At the same time they are considering. if the would like it done, would make sense to do prior to discharge so situation isn't delayed ongoing. Swallowing dysfunction - Speech eval done 08/13. VFS with aspiration. After prior team had discussion with patient - Diet ordered for comfort feeding and permission aspiration allowed. UTIESBL - completed treatment Recent C. difficile Severe Malnutrition Anticipate SNF next week Subjective 08/21: Patient was resting in bed upon arrival, she notes discomfort in her bottom and requested repositioning in bed. No patient or nursing concerns for active bleeding. Nursing notes skin breakdown present on patient's buttocks, protective dressing re-applied. She denies additional concerns. Discussed blood transfusion with patient and , pair agreeable to proceed with transfusion. Risks and benefits discussed, consent obtained and placed in chart. 08/22: Patient resting comfortably in bed. Denies pain or acute needs. Patient responding to commands with nods rather than verbal conversation. Nursing with no acute concerns at this time. not at bedside. Review of Systems Constitutional: As per HPI Physical Exam Physical Exam: Constitutional: ill appearing, no acute distress HEENT: normocephalic, no conjunctival injection, MMM CV: RRR, clinically well perfused, radial pulses 2+ symmetric, dependent edema to BL UE (R>L), no LE edema, no acute bleeding noted Respiratory: No increased work of breathing, CTAB Skin: warm, dry, some bruising noted of right arm Neuro: alert to voice, follows commands, AO x ? (responsive to verbal commands) Results & Data Results & Data Vital Signs (Past 12 Hours) Vital Signs Temp Pulse Resp BP Pulse Ox O2 Del Method 08/21/23 20:49 36.5 C 96 H 18 151/75 H 98 Room Air 08/21/23 20:07 Room Air Resident Activity Tracking Resident Involvement: Resident Care Provided Care Provided: Adult Hospital Medicine (2) Urinary tract infection Hematuria presence: without hematuria Urinary tract infection type: site unspecified Qualified Code(s): N39.0 - Urinary tract infection, site not specified"
--- NOTE | 2023-08-22 10:27 | Billing Data ---
Date of Service August 22, 2023 Coding Level of Care Code 70303 SUB INP/OBS CARE
[2023-08-23] MEDS: LEVOTHYROXINE SODIUM 75 MCG TABLET PO SCH (05:50)
[2023-08-23 06:18] LABS: Albumin Globulin Ratio 0.7 (0.9-2); Albumin Level 1.9 gm/dl (3.4-5.0); BUN Creatinine Ratio 36.4 (10-20); Bilirubin,Total 0.8 mg/dl (0.2-1.0); Calcium 7.2 mg/dl (8.6-10.3); Creatinine Clr Calc Pharmacy 92.8 ml/min; Est GFR (African American) 117.7 ml/min; Est GFR (Non-African American) 101.6 ml/min; Globulin 2.6 gm/dl (2.5-4.0); Potassium 3.5 mmol/L (3.5-5.1); Total Protein 4.5 gm/dl (6.0-8.3)
--- NOTE | 2023-08-23 08:01 | Hospitalist Progress Note ---
"Date of Service August 23, 2023 Assessment & Plan (1) Comfort measures only status: Plan: Pt is a 73 y/o female with PMH of ventricular tachycardia, liver abscess, CAD, IBS, RA, and HLD presenting to the hospital due to SOB and lethargy. Acute metabolic encephalopathy | Hepatic Encephalopathy vs Urosepsis - Patient initially altered in the setting of sepsis 2/2 urinary source and hepatic encephalopathy - CT head negative - Elevated ammonia levels on presentation; now resolved Most likely a/w liver disease (clinical picture concerning for cirrhosis vs type 4 RTA); liver bx has been contemplated for last several admissions, but at this time patient and do not feel she is well enough to proceed with liver bx, explained to patient & family that targeted treatment for her illness is limited without a specific tissue diagnosis. --- Continue supportive measures and pend SNF placement Elevated Transaminases | Elevated Bilirubin | Thrombocytopenia - Likely 2/2 extensive biliary/hepatic disease burden including liver abscesses and biliary stenting - Patient and family electing to post-pone liver biopsy for diagnosis to later date given patient's unstable clinical picture Despite risks/benefits discussion 08/20 - 08/21 Transaminases normal, Alk Phos remains elevated, Bilirubin and ammonia levels wnl Hypoglycemia - BS 66 on admission; no documented hx of DM. - Patient unable to maintain blood sugar levels in the normal range. - Likely due to nutrition status - Continue supportive care. --- Glucose levels remain low, patient continuing to improve PO intake, otherwise asymptomatic Chronic anemia - Hgb decreased but stable. No signs of active bleeding - No evidence of acute blood loss, etiology likely multifactorial; malnutrition, iron deficiency, hemodilution, anemia of chronic disease - S/p 1 unit PRBC 08/21 --- Continue to follow CBC, vitals remain stable, no evidence of acute bleeding Urosepsis - Resolved - Patient presented with urinary symptoms. - UA grossly infected. ESBL on urine cx. Blood cx negative. - Patient adequately treated with ceftriaxone and zosyn. - No further abx indicated at this time. Elevated troponin | CAD | HFrEF - Troponin has since peaked and downtrended; likely demand in the setting of acute illness/AMS - No acute concerns CAD; no symptoms, no EKG changes, troponin downtrended - HFrEF appears stable (Echo w/ EF 40-45% in 2020), CT chest w/ pulmonary edema/pulmonary effusions RHIANNON - Resolved Hyperkalemia - Resolved Comfort measures only status | Discontinued 08/20 - Appeared to be actively dying with severe multifactorial acute on chronic illness - in discussion with family transitioned to comfort care 08/10 - Remarkably she is now awake and alert; changing from comfort measures to cautiously ongoing management of comorbidities - aware that her change of status is a remarkable surprise but that she still does have a very large, very significant illness burden - Upon discussion with patient and , 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 D/t lifting of 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 Chronic Condition Management: - Insomnia: nortriptyline (holding to avoid sedation) - Hypothyroidism: levothyroxine (restarted) - GERD: lansoprazole (no GERD sx, holding) - Depression: lexapro (resumed at 10mg) - Asthma: singulair, albuterol PRN (no wheezing) FEN: Low Na, Pureed Code status: DNR/DNI DVT ppx: None, Lovenox Isolation: Contact Dispo:Med/Surg, anticipate SNF (2) Urinary tract infection: (3) Lethargy: (4) Acute metabolic encephalopathy: (5) Acute hypoxic respiratory failure: (6) HFrEF (heart failure with reduced ejection fraction): (7) Elevated troponin: (8) Acute kidney injury: (9) Hyperkalemia: (10) Hypoglycemia: (11) Asthma: (12) GERD (gastroesophageal reflux disease): (13) Insomnia: (14) Coronary artery disease: (15) Hypomagnesemia: (16) Anemia: (17) Depression: (18) Elevated bilirubin: (19) Thrombocytopenia: Admission and Anticipated Discharge Date Admission Date: August 07, 2023 Supervising Physician Co-Signing Physician Notes I personally examined the patient and verified all corbett points of history and exam, discussed case, and agree with decision making with Dr Fitzpatrick Only complaint is that it is hard to get blood from her. Lab was able to get basic metabolic panel, but not CBCthey were attempting to redraw after she warmed up some. asked about bringing in food from homewe discussed aspiration risk versus malnutritionand noted that overall getting nutrition in her would be more important. Vitals noted, Pleasant and in no distress. HEENT normocephalic atraumatic mucous membranes moist. Breathing unlabored no accessory muscle use good effort. Skin shows no rashes no pallor or icterus. Neuro without focal deficits. anemia - ?lab variation + hypoproliferative + phlebotomy? hemodynamics reassuring. no overt bleeding. transfused. follow. retic index was low (expected) but also accuracy unclear since time of draw suggests it was after transfusion; Difficult lab drawstill awaiting follow-up CBC, but overall picture appears reassuring. Leukocytosis/Hypernatremia/Elevated LFT - All secondary to multisystem organ dysfunction from likely multisystem primary pathology - improved nicely. I do believe a liver biopsy would be helpfulif it shows cirrhosis, certainly her story would make sense, and unfortunately it would outline her prognosis fairly clearly. At the same time if it did not show cirrhosis, then are less viable but still plausible differentials such as some degree of adrenal insufficiency/cortisol deficiency and a type IV RTA might come to the forefront. They are considering. Encephalopathy metabolic - RHIANNON/hyperkalemia and probable multifactorial. Amazingly seems to have totally resolved Ischemia Cardiomyopathy with CAD - EF 40-45%. Right ventricle not visualized. Concern of underlying liver ds - Work up could not be completed to rule out cirrhosis - was ordered CT liver 4 phase but couldn't be completed due to renal function. Chronic liver cysts see above. I do suspect a liver biopsy would be helpful. At the same time they are considering. if the would like it done, would make sense to do prior to discharge so situation isn't delayed ongoing. Swallowing dysfunction - Speech eval done 08/13. VFS with aspiration. After prior team had discussion with patient - Diet ordered for comfort feeding and permission aspiration allowed. Discussed aspiration risk versus nutritionlet know it would be okay to bring in food from home. UTIESBL - completed treatment Recent C. difficile Severe Malnutrition Anticipate SNF next week Subjective 08/23: Patient eating breakfast upon arrival, notably in good spirits enjoying her waffle. She denies discomfort or acute needs this AM. Nursing w/o acute concerns. Review of Systems Constitutional: As per HPI Physical Exam Physical Exam: Constitutional: alert, no acute distress HEENT: normocephalic, no conjunctival injection, MMM CV: RRR, clinically well perfused, radial pulses 2+ symmetric, dependent edema to BL UE (R>L), trace LE edema Respiratory: No increased work of breathing, CTAB Skin: warm, dry, some bruising noted of right arm Neuro: AO x 4, pleasant, interactive, no focal defects Results & Data Results & Data Vital Signs (Past 12 Hours) Vital Signs Temp Pulse Resp BP BP Pulse Ox O2 Del Method 08/23/23 07:58 36.6 C 92 H 16 131/74 93 Room Air 08/22/23 20:40 Room Air 08/22/23 20:32 36.6 C 94 H 16 123/72 97 Room Air Resident Activity Tracking Resident Involvement: Resident Care Provided Care Provided: Adult Hospital Medicine (2) Urinary tract infection Hematuria presence: without hematuria Urinary tract infection type: site unspecified Qualified Code(s): N39.0 - Urinary tract infection, site not specified"
[2023-08-23] MEDS: ENOXAPARIN INJ 40 MG/0.4 ML SYR SQ SCH (08:04)
[2023-08-23] MEDS: ESCITALOPRAM OXALATE 10 MG TAB PO SCH (08:05)
--- NOTE | 2023-08-23 17:48 | Billing Data ---
Date of Service August 23, 2023 Coding Level of Care Code 14865 SUB INP/OBS CARE
[2023-08-23 21:14] LABS: Hematocrit (blood only) 19.7 % (37.0-47.0); Hemoglobin 6.6 g/dl (12.0-16.0); Mean Corpuscular Hemoglobin 38.2 pg (25.0-34.0); Mean Corpuscular Hgb Conc 33.5 g/dL (32.0-36.0); Mean Corpuscular Volume 113.9 fL (80.0-100.0); Platelet Count 81 K/uL (130-400); RDW Coefficient of Variation 21.2 % (11.5-14.5); Red Blood Count 1.73 M/uL (4.20-5.40); White Blood Count 7.57 K/ul (4.8-10.8)
[2023-08-23] MEDS ORDERED: SODIUM CHLORIDE 0.9% 250 ML IV PRN (21:27)
[2023-08-24] MEDS: MoRPHine SULFATE 2 MG/ML CARP IV PRN ×2 (03:53→12:19)
[2023-08-24] MEDS: LEVOTHYROXINE SODIUM 75 MCG TABLET PO SCH (06:04)
[2023-08-24 07:56] LABS: Hemoglobin 5.1 g/dl (12.0-16.0)
[2023-08-24] MEDS: ESCITALOPRAM OXALATE 10 MG TAB PO SCH (08:05)
[2023-08-24] MEDS: ENOXAPARIN INJ 40 MG/0.4 ML SYR SQ SCH (08:06)
--- NOTE | 2023-08-24 09:36 | Hospitalist Progress Note ---
"Date of Service August 24, 2023 Assessment & Plan (1) Comfort measures only status: Plan: 73 yo female with PMHx of ventricular tachycardia, liver abscess, CAD, IBS, RA, and HLD presenting with SOB and lethargy. Upon admission, patient appeared to be actively dying with severe multifactorial acute on chronic illness. After extensive discussion with family she was transitioned to comfort care 08/10. A few days after she remarkably awakened and was AOx3. is aware that her change of status is a remarkable surprise but that she still does have a very significant illness burden. She was changed from comfort measures only to cautious ongoing management of comorbidities 08/20. Now pending SNF placement. Diet ordered for comfort feeding and permission aspiration allowed as she is at high aspiration risk. Discussed aspiration risk versus nutritionlet know it would be okay to bring in food from home. Elevated Transaminases | Elevated Bilirubin | Thrombocytopenia | Edema - Likely 2/2 extensive biliary/hepatic disease burden including liver abscesses and biliary stenting Most likely with underlying liver disease (clinical picture concerning for cirrhosis vs type 4 RTA); liver bx has been contemplated for last several admissions, but at this time patient and do not feel she is well enough to proceed with liver bx, explained to patient & family that targeted treatment for her illness is limited without a specific tissue diagnosis. - CT A/P: small bilateral pleural effusions and a small amount of ascites, moderate to severe body wall edema - Patient and family electing to postpone liver biopsy for diagnosis to later date despite risks/benefits discussion - will try lasix 40mg IV x1 for edema Anemia, chronic - Hgb in 7s throughout hospitalization. Recent asymptomatic dips into 6s. S/p 1 unit PRBC (08/21) and 1 unit (08/23). No signs of active bleeding. HDS. - No evidence of acute blood loss; etiology likely multifactorial; malnutrition, iron deficiency, B12 deficiency, hemodilution, anemia of chronic disease - lasix as above for possible hemodilution - trend Hgb - consider iron/b12 supplementation Acute metabolic encephalopathy, resolved - initially altered in the setting of urosepsis and hepatic encephalopathy. Now AOx3. - CT head negative - Elevated ammonia levels on presentation; now resolved Hypoglycemia - BS 66 on admission; no documented h/o of DM. - Patient unable to maintain blood sugar levels in the normal range. - Likely due to nutrition status - Glucose levels remain low, patient continuing to improve PO intake, otherwise asymptomatic Urosepsis - resolved - presented with urinary symptoms. - UA grossly infected. ESBL on urine cx. Blood cx negative. - treated with ceftriaxone and zosyn, completed - no further abx indicated at this time. Elevated troponin | CAD | HFrEF - resolved - peaked, likely demand in the setting of acute illness/AMS - HFrEF appears stable (Echo w/ EF 40-45% in 2020), CT chest w/ pulmonary edema/effusions Chronic Condition Management: - Insomnia: nortriptyline (holding to avoid sedation) - Hypothyroidism: levothyroxine - GERD: lansoprazole (no GERD sx, holding) - Depression: lexapro - Asthma: singulair, albuterol PRN (no wheezing) FEN: Low Na, Pureed Code status: DNR/DNI DVT ppx: Lovenox Dispo:med surg, pending SNF (2) Urinary tract infection: (3) Lethargy: (4) Acute metabolic encephalopathy: (5) Acute hypoxic respiratory failure: (6) HFrEF (heart failure with reduced ejection fraction): (7) Elevated troponin: (8) Acute kidney injury: (9) Hyperkalemia: (10) Hypoglycemia: (11) Asthma: (12) GERD (gastroesophageal reflux disease): (13) Insomnia: (14) Coronary artery disease: (15) Hypomagnesemia: (16) Anemia: (17) Depression: (18) Elevated bilirubin: (19) Thrombocytopenia: Admission and Anticipated Discharge Date Admission Date: August 07, 2023 Supervising Physician Co-Signing Physician Notes I personally examined the patient and verified all corbett points of progress note, discussed case, and agree with decision making with Dr Dumas Patient was anemic today. Unsure of cause. NO signs of GI bleed, ct abd/pelvis was negative for hematoma. Patient does appear to be third spacing, perhaps there is a component of hemodilution. Iron studies do not show signs of iron def. anemia, though this occured after transfusion. will recheck blood count and transfuse if hemoglobin remains below 7. Family appears more optimistic, May beneift from palliative care consult later in the hospital stay. Vitals noted, Pleasant and in no distress. HEENT normocephalic atraumatic mucous membranes moist. Breathing unlabored no accessory muscle use good effort. Skin shows no rashes no pallor or icterus. Neuro without focal deficits. Leukocytosis/Hypernatremia/Elevated LFT - All secondary to multisystem organ dysfunction from likely multisystem primary pathology - improved nicely. I do believe a liver biopsy would be helpfulif it shows cirrhosis, certainly her story would make sense, and unfortunately it would outline her prognosis fairly clearly. At the same time if it did not show cirrhosis, then are less viable but still plausible differentials such as some degree of adrenal insufficiency/cortisol deficiency and a type IV RTA might come to the forefront. They are considering. Encephalopathy metabolic - RHIANNON/hyperkalemia and probable multifactorial. Amazingly seems to have totally resolved Ischemia Cardiomyopathy with CAD - EF 40-45%. Right ventricle not visualized. Concern of underlying liver ds - Work up could not be completed to rule out cirrhosis - was ordered CT liver 4 phase but couldn't be completed due to renal function. Chronic liver cysts see above. suspect a liver biopsy would be helpful. At the same time they are considering. if the would like it done, would make sense to do prior to discharge so situation isn't delayed ongoing. Swallowing dysfunction - Speech eval done 08/13. VFS with aspiration. After prior team had discussion with patient - Diet ordered for comfort feeding and permission aspiration allowed. Discussed aspiration risk versus nutritionlet know it would be okay to bring in food from home. UTIESBL - completed treatment Recent C. difficile Severe Malnutrition Anticipate SNF next week Subjective Patient seen at bedside. No acute changes. Denies signs for active bleeding although she has not had a recent BM. Denies dizziness, lightheadedness, fatigue. Review of Systems Review of Systems: All systems reviewed & are unremarkable except as noted in HPI & below Physical Exam Physical Exam: Constitutional: no acute distress, pleasant and normal affect, AOx3. HEENT: moist mucous membranes CV: RRR, 2+ distal peripheral pulses, dependent edema to BL UE (R>L), trace LE edema Respiratory: No increased work of breathing, CTAB, no wheezes/rales/rhonchi Abdomen: Soft, nontender, and nondistended.No guarding. Skin: warm, dry, no cyanosis or clubbing Neuro: no focal defects Results & Data Results & Data Vital Signs (Past 12 Hours) Vital Signs Temp Pulse Pulse Resp BP BP Pulse Ox 08/24/23 07:49 36.5 C 79 16 135/79 92 08/24/23 00:48 36.7 C 87 16 118/78 100 08/23/23 23:48 36.8 C 84 18 131/82 100 08/23/23 22:50 36.8 C 88 16 112/71 100 08/23/23 22:20 36.4 C L 84 18 101/70 100 08/23/23 21:58 36.6 C 90 18 119/66 99 O2 Del Method 08/24/23 07:49 Room Air 08/24/23 00:48 08/23/23 23:48 08/23/23 22:50 08/23/23 22:20 08/23/23 21:58 Laboratory Results 08/24/23 08/23/23 08/23/23 Range/Units 07:26 20:51 09:24 WBC 7.57 Cancelled RBC 1.73 L Cancelled Hgb 5.1 L* 6.6 L* Cancelled Hct 14.0 L* 19.7 L* Cancelled MCV 113.9 H Cancelled MCH 38.2 H Cancelled MCHC 33.5 Cancelled RDW Std Deviation 89.0 H Cancelled RDW Coeff of Ender 21.2 H Cancelled Plt Count 81 L Cancelled MPV 14.0 H Cancelled Absolute Nucleated RBC Cancelled Nucleated RBC % (auto) Cancelled Platelet Estimate Cancelled Blood Type Antibody Screen Crossmatch 08/21/23 Range/Units 07:48 WBC RBC Hgb Hct MCV MCH MCHC RDW Std Deviation RDW Coeff of Ender Plt Count MPV Absolute Nucleated RBC Nucleated RBC % (auto) Platelet Estimate Blood Type A Negative Antibody Screen NEGATIVE Crossmatch See Detail Resident Activity Tracking Resident Involvement: Resident Care Provided Care Provided: Adult Hospital Medicine (2) Urinary tract infection Hematuria presence: without hematuria Urinary tract infection type: site unspecified Qualified Code(s): N39.0 - Urinary tract infection, site not specified"
[2023-08-24] MEDS ORDERED: PHYTONADIONE 10 MG in DEXTROSE 5% 50 ML IV ONE (11:30)
[2023-08-24 11:39] LABS: Albumin Globulin Ratio 0.8 (0.9-2); BUN Creatinine Ratio 38.1 (10-20); Bilirubin,Total 0.8 mg/dl (0.2-1.0); Calcium 7.5 mg/dl (8.6-10.3); Creatinine Clr Calc Pharmacy 97.2 ml/min; Est GFR (African American) 119.5 ml/min; Est GFR (Non-African American) 103.1 ml/min; Globulin 2.6 gm/dl (2.5-4.0); Potassium 3.5 mmol/L (3.5-5.1); Total Protein 4.6 gm/dl (6.0-8.3)
[2023-08-24 11:46] LABS: Hematocrit (blood only) 22.2 % (37.0-47.0); Hemoglobin 6.9 g/dl (12.0-16.0); INR 1.1 (0.9-1.1); Mean Corpuscular Hemoglobin 37.1 pg (25.0-34.0); Mean Corpuscular Hgb Conc 31.1 g/dL (32.0-36.0); Mean Corpuscular Volume 119.4 fL (80.0-100.0); Mean Platelet Volume 13.9 fL (9.4-12.4); Platelet Count 89 K/uL (130-400); Prothrombin Time 11.9 Seconds (9.0-12.0); RDW Coefficient of Variation 20.7 % (11.5-14.5); RDW Standard Deviation 92.6 fL (36.4-46.3); Red Blood Count 1.86 M/uL (4.20-5.40)
[2023-08-24 11:50] LABS: Anisocytosis Present; Basophils # (auto) 0.02 K/uL (0.00-0.20); Basophils % (auto) 0.4 %; Eosinophils # (auto) 0.15 K/uL (0.00-0.50); Eosinophils % (auto) 2.8 %; Immature Granulocytes # (auto) 0.02 K/uL (0.01-0.20); Immature Granulocytes % (auto) 0.4 %; Lymphocytes # (auto) 1.12 K/uL (1.20-3.40); Lymphocytes % (auto) 20.7 %; Macrocytosis Present; Monocytes # (auto) 0.47 K/uL (0.11-0.59); Monocytes % (auto) 8.7 %; Neutrophils # (auto) 3.62 K/uL (1.40-6.50)
--- NOTE | 2023-08-24 11:54 | CT Scan Report ---
ABDOMEN AND PELVIS CT WITHOUT CONTRAST CT DOSE: 1204.75 mGy.cm HISTORY: Anemia. Back pain. Assess for retroperitoneal bleed. TECHNIQUE: Multiaxial CT images of the abdomen and pelvis were performed without contrast. A dose lo wering technique was utilized adhering to the principles of ALARA. COMPARISON STUDY: Abdomen and pelvis CT 08/09/2023. FINDINGS: Levoscoliosis and chronic compression deformities again noted within the thoracolumbar spin e. There is most pronounced at T12 which demonstrates a severe compression deformity with 4 mm of ret ropulsion resulting in [id number] central canal narrowing. This remains unchanged. Small bilate ral pleural effusions and bilateral lower lobe densities persist. This favors compressive atelectasis from the pleural effusions. No pneumoperitoneum. No pneumatosis. There are old, healed bilateral rib fractures. Soft tissue gas within the left upper arm which may be due to recent intervention/intrave nous line placement. Hypodense blood pool consistent with underlying anemia. Moderate to severe body wall edema most pronounced within the pelvis. This has slightly progressed. Stable hypodense lesions within the left hepatic lobe. These favor cysts. The unenhanced spleen, adrenal glands, and gallbladd er are unremarkable. No renal stones or hydronephrosis. Questionable mild peripancreatic edema is lik andrés due to the patient's diffuse edematous state. An acute pancreatitis is considered less likely but not entirely excluded. No retroperitoneal hematoma or lymphadenopathy. Normal caliber abdominal aort a. No pelvic lymphadenopathy. Prior hysterectomy. The bladder is decompressed by Lord catheter. This may account for the small amount of gas within the bladder lumen. There is a small amount of ascites again noted. This is similar to the prior study. Suboptimal evaluation for bowel pathology due to th e lack of intravenous and oral contrast. However, there is no definite bowel wall thickening or obstr uction. Colonic diverticulosis. No evidence for acute diverticulitis. Fluid-filled nondilated loops o f large or small bowel seen throughout the abdomen. IMPRESSION: 1. No retroperitoneal hematoma identified. 2. Suboptimal evaluation for bowel pathology due to the lack of intravenous and oral contrast. Howeve r, there is no definite bowel wall thickening or obstruction. 3. Colonic diverticulosis. No evidence for acute diverticulitis. 4. Small bilateral pleural effusions and a small amount of ascites, unchanged. 5. Moderate to severe body wall edema has slightly progressed. 6. Fluid-filled nondilated loops of large and small bowel seen throughout the abdomen. This could rep resent a mild diarrheal illness/gastroenteritis. This is similar to the prior study. 7. Questionable mild peripancreatic edema. This is likely due to the patient's diffuse edematous stat e. Recommend correlation with pancreatic enzymes to exclude the possibility of a mild acute pancreati tis. 8. Additional findings as described above. ACT 112: Negative or not required by law. Electronically signed by: Azael Pinto M.D. 08/24/2023 11:52 AM
[2023-08-24 11:59] LABS: Ferritin 761.1 ng/ml (8-388); Reticulocyte % 0.1 % (0.5-2.0)
[2023-08-24 12:31] LABS: Folate (Folic Acid),Ser orPlas 10.06 ng/ml (>5.38)
[2023-08-24] MEDS ORDERED: FUROSEMIDE 40 MG/4 ML VIAL IV ONE (13:40)
[2023-08-24 17:08] LABS: Hematocrit (blood only) 23.9 % (37.0-47.0); Hemoglobin 7.6 g/dl (12.0-16.0)
[2023-08-25] MEDS: LEVOTHYROXINE SODIUM 75 MCG TABLET PO SCH (05:39)
[2023-08-25 06:29] LABS: Hematocrit (blood only) 22.8 % (37.0-47.0); Hemoglobin 7.2 g/dl (12.0-16.0)
[2023-08-25 06:34] LABS: Albumin Level 2.2 gm/dl (3.4-5.0); Calcium 7.7 mg/dl (8.6-10.3); Magnesium 1.2 mg/dl (1.7-2.4); Potassium 2.9 mmol/L (3.5-5.1)
[2023-08-25 06:40] LABS: Albumin Globulin Ratio 0.8 (0.9-2); Creatinine Clr Calc Pharmacy 97.2 ml/min; Est GFR (African American) 119.5 ml/min; Est GFR (Non-African American) 103.1 ml/min; Globulin 2.8 gm/dl (2.5-4.0)
[2023-08-25] MEDS ORDERED: POTASSIUM CHLORIDE 20 MEQ/15 ML UDC PO STA (07:13)
[2023-08-25] MEDS: ENOXAPARIN INJ 40 MG/0.4 ML SYR SQ SCH (08:06)
[2023-08-25] MEDS: ESCITALOPRAM OXALATE 10 MG TAB PO SCH (08:07)
[2023-08-25] MEDS: MoRPHine SULFATE 2 MG/ML CARP IV PRN (08:11)
[2023-08-25] MEDS: MAGNESIUM SULFATE / D5W 1 GM/100 ML BAG IV SCH ×2 (08:13→10:06)
--- NOTE | 2023-08-25 09:36 | Billing Data ---
Date of Service August 24, 2023 Coding Level of Care Code 71517 SUB INP/OBS CARE
--- NOTE | 2023-08-25 09:38 | Billing Data ---
Date of Service August 24, 2023 Coding Level of Care Code 82459 SUB INP/OBS CARE
--- NOTE | 2023-08-25 10:10 | Hospitalist Progress Note ---
"Date of Service August 25, 2023 Assessment & Plan (1) Comfort measures only status: Plan: 73 yo female with PMHx of ventricular tachycardia, liver abscess, CAD, IBS, RA, and HLD presenting with SOB and lethargy. Upon admission, patient appeared to be actively dying with severe multifactorial acute on chronic illness. After extensive discussion with family she was transitioned to comfort care 08/10. A few days after she remarkably awakened and was AOx3. is aware that her change of status is a remarkable surprise but that she still does have a very significant illness burden. She was changed from comfort measures only to cautious ongoing management of comorbidities 08/20. Now pending SNF placement. Diet ordered for comfort feeding and permission aspiration allowed as she is at high aspiration risk. Discussed aspiration risk versus nutritionlet know it would be okay to bring in food from home. Elevated Transaminases | Elevated Bilirubin | Thrombocytopenia | Edema - Likely 2/2 extensive biliary/hepatic disease burden including liver abscesses and biliary stenting Most likely with underlying liver disease (clinical picture concerning for cirrhosis vs type 4 RTA); liver bx has been contemplated for last several admissions, but at this time patient and do not feel she is well enough to proceed with liver bx, explained to patient & family that targeted treatment for her illness is limited without a specific tissue diagnosis. - CT A/P: small bilateral pleural effusions and a small amount of ascites, moderate to severe body wall edema - Patient and family electing to postpone liver biopsy for diagnosis to later date despite risks/benefits discussion - Lasix 40mg IV (08/24) which did improve edema. Consider additional dose. Anemia, chronic - Hgb in 7s throughout hospitalization. Recent asymptomatic dips into 6s. S/p 1 unit PRBC (08/21) and 1 unit (08/23). No signs of active bleeding. HDS. - No evidence of acute blood loss; etiology likely multifactorial; malnutrition, iron deficiency, B12 deficiency, hemodilution, anemia of chronic disease - Trend Hgb, remains stable. - consider iron/b12 supplementation Acute metabolic encephalopathy, resolved - initially altered in the setting of urosepsis and hepatic encephalopathy. Now AOx3. - CT head negative - Elevated ammonia levels on presentation; now resolved Hypoglycemia - BS 66 on admission; no documented h/o of DM. - Patient unable to maintain blood sugar levels in the normal range. - Likely due to nutrition status - Glucose levels remain low, patient continuing to improve PO intake, otherwise asymptomatic Urosepsis - resolved - presented with urinary symptoms. - UA grossly infected. ESBL on urine cx. Blood cx negative. - treated with ceftriaxone and zosyn, completed - no further abx indicated at this time. Elevated troponin | CAD | HFrEF - resolved - peaked, likely demand in the setting of acute illness/AMS - HFrEF appears stable (Echo w/ EF 40-45% in 2020), CT chest w/ pulmonary edema/effusions Chronic Condition Management: - Insomnia: nortriptyline (holding to avoid sedation) - Hypothyroidism: levothyroxine - GERD: lansoprazole (no GERD sx, holding) - Depression: lexapro - Asthma: singulair, albuterol PRN (no wheezing) FEN: Low Na, Pureed Code status: DNR/DNI DVT ppx: Lovenox Dispo:med surg, pending SNF (2) Urinary tract infection: (3) Lethargy: (4) Acute metabolic encephalopathy: (5) Acute hypoxic respiratory failure: (6) HFrEF (heart failure with reduced ejection fraction): (7) Elevated troponin: (8) Acute kidney injury: (9) Hyperkalemia: (10) Hypoglycemia: (11) Asthma: (12) GERD (gastroesophageal reflux disease): (13) Insomnia: (14) Coronary artery disease: (15) Hypomagnesemia: (16) Anemia: (17) Depression: (18) Elevated bilirubin: (19) Thrombocytopenia: Admission and Anticipated Discharge Date Admission Date: August 07, 2023 Supervising Physician Co-Signing Physician Notes Attending Physician Supervision Note: I independently interviewed and examined the patient and verified the corbett history and physical, reviewed labs and image studies and agree with findings and care plan noted above. ate well this afternoon. reported pain in her bottom from decub. no other concerns. at bedside vitals reviewed, alert and oriented, comfortable in bed. no resp distress. no focal neuro deficit. Encephalopathy - metabolic - RHIANNON/hyperkalemia, diarrhea from recent C diff, UTI. resolved RHIANNON and HyperK - resolved Ischemia Cardiomyopathy with CAD - EF 40-45%. Right ventricle not visualized. s/p dose of lasix 08/24. Fluid balance neg 1500ml carvedilol - low systolic, aspirin on hold. Not on statin at home. Concern of underlying liver ds - Work up could not be completed to rule out cirrhosis - was ordered CT liver 4 phase but couldn't be completed due to renal function. Chronic liver cysts; h/o liver abscess. Liver enzymes improved. Will discuss with GI in am about any possible work up while she is still hospitalized. Swallowing dysfunction - after improved status from comfort care status. resolved. UTIESBL - completed treatment Recent C. difficile colitis - resolved. Severe Malnutrition - ? sec to poor PO intake and ? liver dysfunction. improving PO intake. PT/OT, Anticipate SNF next week [facility] Subjective Patient seen at bedside. No acute changes, she is feeling well. Peripheral edema has decreased s/p lasix. Denies signs for active bleeding although she has not had a recent BM. Denies dizziness, lightheadedness, fatigue, cp, sob, abd pain, headache. Review of Systems Review of Systems: All systems reviewed & are unremarkable except as noted in HPI & below Physical Exam Physical Exam: Constitutional: no acute distress, pleasant and normal affect, AOx3 (forgets which hospital). HEENT: moist mucous membranes CV: RRR, 2+ distal peripheral pulses, improved dependent edema to BL UE (R>L), trace bilatearl LE edema Respiratory: No increased work of breathing, CTAB, no wheezes/rales/rhonchi Abdomen: Soft, nontender, and nondistended.No guarding. Skin: warm, dry, no cyanosis or clubbing Neuro: no focal defects Results & Data Results & Data Vital Signs (Past 12 Hours) Vital Signs Temp Pulse Resp BP Pulse Ox O2 Del Method 08/25/23 08:58 Room Air 08/25/23 07:08 36.4 C L 87 18 109/72 99 Room Air Laboratory Results 08/25/23 08/24/23 08/24/23 Range/Units 05:29 16:36 11:01 WBC (4.8-10.8) K/ul RBC (4.20-5.40) M/uL Hgb 7.2 L 7.6 L (12.0-16.0) g/dl Hct 22.8 L 23.9 L (37.0-47.0) % MCV (80.0-100.0) fL MCH (25.0-34.0) pg MCHC (32.0-36.0) g/dL RDW Std Deviation (36.4-46.3) fL RDW Coeff of Ender (11.5-14.5) % Plt Count (130-400) K/uL MPV (9.4-12.4) fL Immature Gran % (Auto) % Neut % (Auto) % Lymph % (Auto) % [place] % (Auto) % Eos % (Auto) % Baso % (Auto) % Reticulocyte % (Auto) (0.5-2.0) % Neut # (Auto) (1.40-6.50) K/uL Lymph # (Auto) (1.20-3.40) K/uL [place] # (Auto) (0.11-0.59) K/uL Eos # (Auto) (0.00-0.50) K/uL Baso # (Auto) (0.00-0.20) K/uL Reticulocyte # (0.02-0.10) 10^6/uL Immature Gran # (Auto) (0.01-0.20) K/uL Anisocytosis Macrocytosis PT (9.0-12.0) Seconds INR (0.9-1.1) Sodium 137 (136-145) mmol/L Potassium 2.9 L (3.5-5.1) mmol/L Chloride 104 (98-107) mmol/L Carbon Dioxide 27 (21-32) mmol/L Anion Gap 6 (3-11) BUN 13 (6-23) mg/dl Creatinine 0.42 L (0.6-1.2) mg/dl Est Cr Clr Drug Dosing 97.2 ml/min Est GFR ( Amer) 119.5 ml/min Est GFR (Non-Af Amer) 103.1 ml/min BUN/Creatinine Ratio 31.0 H (10-20) Glucose 65 L (70-99(Fasting)) mg/dl Calcium 7.7 L (8.6-10.3) mg/dl Magnesium 1.2 L (1.7-2.4) mg/dl Iron TIBC Unsaturated IBC Transferrin % Sat Ferritin 761.1 H Total Bilirubin 1.0 0.8 (0.2-1.0) mg/dl AST 24 26 (13-39) U/L ALT 29 31 (7-52) U/L Alkaline Phosphatase 157 H 147 H (34-104) U/L Lactate Dehydrogenase 329 H (86-244) U/L B-Natriuretic Peptide 61 (0-100) pg/ml Total Protein 5.0 L 4.6 L (6.0-8.3) gm/dl Albumin 2.2 L 2.0 L (3.4-5.0) gm/dl Globulin 2.8 2.6 (2.5-4.0) gm/dl Albumin/Globulin Ratio 0.8 L 0.8 L (0.9-2) Vitamin B12 353 (180-914) pg/ml Folate 10.06 (>5.38) ng/ml 08/24/23 08/24/23 08/24/23 Range/Units 11:01 11:01 11:01 WBC (4.8-10.8) K/ul RBC (4.20-5.40) M/uL Hgb (12.0-16.0) g/dl Hct (37.0-47.0) % MCV (80.0-100.0) fL MCH (25.0-34.0) pg MCHC (32.0-36.0) g/dL RDW Std Deviation (36.4-46.3) fL RDW Coeff of Ender (11.5-14.5) % Plt Count (130-400) K/uL MPV (9.4-12.4) fL Immature Gran % (Auto) % Neut % (Auto) % Lymph % (Auto) % [place] % (Auto) % Eos % (Auto) % Baso % (Auto) % Reticulocyte % (Auto) (0.5-2.0) % Neut # (Auto) (1.40-6.50) K/uL Lymph # (Auto) (1.20-3.40) K/uL [place] # (Auto) (0.11-0.59) K/uL Eos # (Auto) (0.00-0.50) K/uL Baso # (Auto) (0.00-0.20) K/uL Reticulocyte # (0.02-0.10) 10^6/uL Immature Gran # (Auto) (0.01-0.20) K/uL Anisocytosis Macrocytosis PT (9.0-12.0) Seconds INR (0.9-1.1) Sodium (136-145) mmol/L Potassium (3.5-5.1) mmol/L Chloride (98-107) mmol/L Carbon Dioxide (21-32) mmol/L Anion Gap (3-11) BUN (6-23) mg/dl Creatinine (0.6-1.2) mg/dl Est Cr Clr Drug Dosing ml/min Est GFR ( Amer) ml/min Est GFR (Non-Af Amer) ml/min BUN/Creatinine Ratio (10-20) Glucose (70-99(Fasting)) mg/dl Calcium (8.6-10.3) mg/dl Magnesium (1.7-2.4) mg/dl Iron TIBC 141 L Unsaturated IBC 104 L Cancelled Transferrin % Sat 26 Cancelled Ferritin Cancelled Total Bilirubin (0.2-1.0) mg/dl AST (13-39) U/L ALT (7-52) U/L Alkaline Phosphatase (34-104) U/L Lactate Dehydrogenase (86-244) U/L B-Natriuretic Peptide (0-100) pg/ml Total Protein (6.0-8.3) gm/dl Albumin (3.4-5.0) gm/dl Globulin (2.5-4.0) gm/dl Albumin/Globulin Ratio (0.9-2) Vitamin B12 (180-914) pg/ml Folate (>5.38) ng/ml 08/24/23 08/24/23 Range/Units 11:01 11:01 WBC 5.40 (4.8-10.8) K/ul RBC 1.86 L (4.20-5.40) M/uL Hgb 6.9 L* (12.0-16.0) g/dl Hct 22.2 L (37.0-47.0) % MCV 119.4 H (80.0-100.0) fL MCH 37.1 H (25.0-34.0) pg MCHC 31.1 L (32.0-36.0) g/dL RDW Std Deviation 92.6 H (36.4-46.3) fL RDW Coeff of Ender 20.7 H (11.5-14.5) % Plt Count 89 L (130-400) K/uL MPV 13.9 H (9.4-12.4) fL Immature Gran % (Auto) 0.4 % Neut % (Auto) 67.0 % Lymph % (Auto) 20.7 % [place] % (Auto) 8.7 % Eos % (Auto) 2.8 % Baso % (Auto) 0.4 % Reticulocyte % (Auto) 0.1 L (0.5-2.0) % Neut # (Auto) 3.62 (1.40-6.50) K/uL Lymph # (Auto) 1.12 L (1.20-3.40) K/uL [place] # (Auto) 0.47 (0.11-0.59) K/uL Eos # (Auto) 0.15 (0.00-0.50) K/uL Baso # (Auto) 0.02 (0.00-0.20) K/uL Reticulocyte # 4.60 H (0.02-0.10) 10^6/uL Immature Gran # (Auto) 0.02 (0.01-0.20) K/uL Anisocytosis Present Macrocytosis Present PT 11.9 (9.0-12.0) Seconds INR 1.1 (0.9-1.1) Sodium 139 (136-145) mmol/L Potassium 3.5 (3.5-5.1) mmol/L Chloride 109 H (98-107) mmol/L Carbon Dioxide 26 (21-32) mmol/L Anion Gap 4 (3-11) BUN 16 (6-23) mg/dl Creatinine 0.42 L (0.6-1.2) mg/dl Est Cr Clr Drug Dosing 97.2 ml/min Est GFR ( Amer) 119.5 ml/min Est GFR (Non-Af Amer) 103.1 ml/min BUN/Creatinine Ratio 38.1 H (10-20) Glucose 79 (70-99(Fasting)) mg/dl Calcium 7.5 L (8.6-10.3) mg/dl Magnesium (1.7-2.4) mg/dl Iron 37 Cancelled TIBC Cancelled Unsaturated IBC Transferrin % Sat Ferritin Total Bilirubin (0.2-1.0) mg/dl AST (13-39) U/L ALT (7-52) U/L Alkaline Phosphatase (34-104) U/L Lactate Dehydrogenase (86-244) U/L B-Natriuretic Peptide (0-100) pg/ml Total Protein (6.0-8.3) gm/dl Albumin (3.4-5.0) gm/dl Globulin (2.5-4.0) gm/dl Albumin/Globulin Ratio (0.9-2) Vitamin B12 (180-914) pg/ml Folate (>5.38) ng/ml Resident Activity Tracking Resident Involvement: Resident Care Provided Care Provided: Adult Hospital Medicine (2) Urinary tract infection Hematuria presence: without hematuria Urinary tract infection type: site unspecified Qualified Code(s): N39.0 - Urinary tract infection, site not specified"
[2023-08-26] MEDS: LEVOTHYROXINE SODIUM 75 MCG TABLET PO SCH (06:25)
[2023-08-26 06:29] LABS: Hematocrit (blood only) 21.8 % (37.0-47.0); Hemoglobin 6.9 g/dl (12.0-16.0)
[2023-08-26] MEDS: MoRPHine SULFATE 2 MG/ML CARP IV PRN (06:34)
[2023-08-26 06:46] LABS: Albumin Globulin Ratio 0.8 (0.9-2); BUN Creatinine Ratio 42.4 (10-20); Bilirubin,Total 0.9 mg/dl (0.2-1.0); Calcium 7.5 mg/dl (8.6-10.3); Creatinine Clr Calc Pharmacy 123.7 ml/min; Est GFR (African American) 129.4 ml/min; Est GFR (Non-African American) 111.6 ml/min; Globulin 2.5 gm/dl (2.5-4.0); Magnesium 1.6 mg/dl (1.7-2.4); Potassium 3.9 mmol/L (3.5-5.1); Total Protein 4.5 gm/dl (6.0-8.3)
[2023-08-26] MEDS ORDERED: SODIUM CHLORIDE 0.9% 250 ML IV PRN (07:17)
--- NOTE | 2023-08-26 07:31 | Hospitalist Progress Note ---
"Date of Service August 26, 2023 Assessment & Plan (1) Comfort measures only status: Plan: 73 yo female with PMHx of ventricular tachycardia, liver abscess, CAD, IBS, RA, and HLD presenting with SOB and lethargy. Upon admission, patient appeared to be actively dying with severe multifactorial acute on chronic illness. After extensive discussion with family she was transitioned to comfort care 08/10. A few days after she remarkably awakened and was AOx3. is aware that her change of status is a remarkable surprise but that she still does have a very significant illness burden. She was changed from comfort measures only to cautious ongoing management of comorbidities 08/20. Now pending SNF placement. Diet ordered for comfort feeding and permission aspiration allowed as she is at high aspiration risk. Discussed aspiration risk versus nutritionlet know it would be okay to bring in food from home. Elevated Transaminases | Elevated Bilirubin | Thrombocytopenia | Edema - Likely 2/2 extensive biliary/hepatic disease burden including liver abscesses and biliary stenting Most likely with underlying liver disease (clinical picture concerning for cirrhosis vs type 4 RTA); liver bx has been contemplated for last several admissions, but at this time patient and do not feel she is well enough to proceed with liver bx, explained to patient & family that targeted treatment for her illness is limited without a specific tissue diagnosis. - CT A/P: small bilateral pleural effusions and a small amount of ascites, moderate to severe body wall edema - Patient and family electing to postpone liver biopsy for diagnosis to later date despite risks/benefits discussion - Lasix 40mg IV (08/24) which did improve edema, negative fluid balance --- Edema stable, fluid balance negative, consider additional dose if worsening. --- Family requesting to proceed with [address] Liver (recommended by GI), but unable to proceed with imaging given lack of IV access. Anemia, chronic - Hgb in 7s throughout hospitalization. Recent asymptomatic dips into 6s. S/p 1 unit PRBC (08/21) and 1 unit (08/23). No signs of active bleeding. HDS. - No evidence of acute blood loss; etiology likely multifactorial; malnutrition, iron deficiency, B12 deficiency, hemodilution, anemia of chronic disease - Consider iron/b12 supplementation --- Hgb < 7 this AM, patient requesting to proceed w/ transfusion but IV team remains unable to obtain access despite attempts via US guidance, patient's vasculature unable to support additional intravenous access at this time, contin ue ongoing goals of care discussions with family. Patient currently asymptomatic from anemia. Acute metabolic encephalopathy - Resolved - initially altered in the setting of urosepsis and hepatic encephalopathy. Now AOx3. - CT head negative - Elevated ammonia levels on presentation; now resolved Hypoglycemia - BS 66 on admission; no documented h/o of DM. - Patient unable to maintain blood sugar levels in the normal range. - Likely due to nutrition status - Glucose levels remain low, patient continuing to improve PO intake, otherwise asymptomatic Urosepsis - Resolved - presented with urinary symptoms. - UA grossly infected. ESBL on urine cx. Blood cx negative. - treated with ceftriaxone and zosyn, completed - no further abx indicated at this time. Elevated troponin | CAD | HFrEF - Resolved - peaked, likely demand in the setting of acute illness/AMS - HFrEF appears stable (Echo w/ EF 40-45% in 2020), CT chest w/ pulmonary edema/effusions Chronic Condition Management: - Insomnia: nortriptyline (holding to avoid sedation) - Hypothyroidism: levothyroxine - GERD: lansoprazole (no GERD sx, holding) - Depression: lexapro - Asthma: singulair, albuterol PRN (no wheezing) FEN: Low Na, Pureed Code status: DNR/DNI DVT ppx: Lovenox Dispo:med surg, pending [facility] (2) Urinary tract infection: (3) Lethargy: (4) Acute metabolic encephalopathy: (5) Acute hypoxic respiratory failure: (6) HFrEF (heart failure with reduced ejection fraction): (7) Elevated troponin: (8) Acute kidney injury: (9) Hyperkalemia: (10) Hypoglycemia: (11) Asthma: (12) GERD (gastroesophageal reflux disease): (13) Insomnia: (14) Coronary artery disease: (15) Hypomagnesemia: (16) Anemia: (17) Depression: (18) Elevated bilirubin: (19) Thrombocytopenia: Admission and Anticipated Discharge Date Admission Date: August 07, 2023 Supervising Physician Co-Signing Physician Notes Attending Physician Supervision Note: I independently interviewed and examined the patient and verified the corbett history and physical, reviewed labs and image studies and agree with findings and care plan noted above. no new concerns. at bedside. IV line infiltrated - unable to transfuse blood ordered this am. vitals reviewed, alert and oriented, comfortable in bed. no resp distress. no focal neuro deficit. Anemia - hb 6.9 this am. no IV access & not a candidate for PICC line. ongoing goal of care discussion for pursuing central line placement. Encephalopathy - metabolic - RHIANNON/hyperkalemia, diarrhea from recent C diff, UTI. resolved RHIANNON and HyperK - resolved Ischemia Cardiomyopathy with CAD - EF 40-45%. Right ventricle not visualized. s/p dose of lasix 08/24. Fluid balance neg 1500ml carvedilol one hold - low systolic, aspirin on hold - anemia. Not on statin at home. Concern of underlying liver ds - Work up could not be completed to rule out cirrhosis - was ordered CT liver 4 phase but couldn't be completed due to renal function. Chronic liver cysts; h/o liver abscess. Liver enzymes improved. Discussed with [facility] ([place] - [place]). Recommended CT liver 4 phase while hospitalized. Swallowing dysfunction - after improved status from comfort care status. resolved. UTIESBL - completed treatment Recent C. difficile colitis - resolved. Severe Malnutrition - ? sec to poor PO intake and ? liver dysfunction. improving PO intake. PT/OT, Anticipate SNF placement Lovenox Lord Subjective 08/26: Patient resting w/ at bedside upon arrival. No acute changes. Patient continues to improve her nutrition intake PO. No signs of active bleeding. Patient denies any pain or discomfort. Patient and requesting to proceed with blood transfusion for anemia as well as 4-Phase Liver CT. Review of Systems Constitutional: As per HPI Physical Exam Physical Exam: Constitutional: no acute distress, pleasant and normal affect, AOx3 (forgets which hospital). HEENT: moist mucous membranes CV: RRR, 2+ distal peripheral pulses, ongoing dependent edema to bilateral UE, trace bilateral LE edema Respiratory: No increased work of breathing, CTAB, no wheezes/rales/rhonchi Abdomen: Soft, nontender, and nondistended.No guarding. Skin: warm, dry, no cyanosis or clubbing, significant ecchymosis present to left arm/forearm (2/2 previous transfusion) Neuro: no focal defects Results & Data Results & Data Vital Signs (Past 12 Hours) Vital Signs Temp Pulse Resp BP Pulse Ox O2 Del Method 08/25/23 21:55 Room Air 08/25/23 21:37 36.5 C 92 H 16 135/70 98 Room Air Resident Activity Tracking Resident Involvement: Resident Care Provided Care Provided: Adult Hospital Medicine (2) Urinary tract infection Hematuria presence: without hematuria Urinary tract infection type: site unspecified Qualified Code(s): N39.0 - Urinary tract infection, site not specified"
[2023-08-26] MEDS: MAGNESIUM SULFATE / D5W 1 GM/100 ML BAG IV SCH ×2 (07:37→08:46)
[2023-08-26] MEDS: ENOXAPARIN INJ 40 MG/0.4 ML SYR SQ SCH (07:38)
[2023-08-26] MEDS: ESCITALOPRAM OXALATE 10 MG TAB PO SCH (07:38)
[2023-08-26] MEDS ORDERED: HYDROmorphone HCL 2 MG TAB PO STA (16:34)
[2023-08-27] MEDS: LEVOTHYROXINE SODIUM 75 MCG TABLET PO SCH (06:38)
--- NOTE | 2023-08-27 07:22 | Hospitalist Progress Note ---
"Date of Service August 27, 2023 Assessment & Plan (1) Comfort measures only status: Plan: 73 yo female with PMHx of ventricular tachycardia, liver abscess, CAD, IBS, RA, and HLD presenting with SOB and lethargy. Upon admission, patient appeared to be actively dying with severe multifactorial acute on chronic illness. After extensive discussion with family she was transitioned to comfort care 08/10. A few days after she remarkably awakened and was AOx3. is aware that her change of status is a remarkable surprise but that she still does have a very significant illness burden. She was changed from comfort measures only to cautious ongoing management of comorbidities 08/20. Now pending SNF placement. Diet ordered for comfort feeding and permission aspiration allowed as she is at high aspiration risk. Discussed aspiration risk versus nutritionlet know it would be okay to bring in food from home. Elevated Transaminases | Elevated Bilirubin | Thrombocytopenia | Edema - Likely 2/2 extensive biliary/hepatic disease burden including liver abscesses and biliary stenting Most likely with underlying liver disease (clinical picture concerning for cirrhosis vs type 4 RTA); liver bx has been contemplated for last several admissions, but at this time patient and do not feel she is well enough to proceed with liver bx, explained to patient & family that targeted treatment for her illness is limited without a specific tissue diagnosis. - CT A/P: small bilateral pleural effusions and a small amount of ascites, moderate to severe body wall edema - Patient and family electing to postpone liver biopsy for diagnosis to later date despite risks/benefits discussion - Lasix 40mg IV (08/24) which did improve edema, negative fluid balance, consider additional dose if worsening. - 08/27: Family requesting to proceed with [address] Liver (recommended by GI), but unable to proceed with imaging given lack of IV access. --- Completions Manager consulted for placement of central line, unable to obtain labs or peripheral access, patient and family requesting to proceed with central access Anemia, chronic - Hgb in 7s throughout hospitalization. Recent asymptomatic dips into 6s. S/p 1 unit PRBC (08/21) and 1 unit (08/23). No signs of active bleeding. HDS. - No evidence of acute blood loss; etiology likely multifactorial; malnutrition, iron deficiency, B12 deficiency, hemodilution, anemia of chronic disease - Consider iron/b12 supplementation - 12/27: Hgb < 7, patient requesting to proceed w/ transfusion but IV team remains unable to obtain access despite attempts via US guidance, patient's vasculature unable to support additional intravenous access at this time, continue ongoing goals of care discussions with family. Patient currently asymptomatic from anemia. --- Completions Manager consulted for placement of central line, unable to assess H&H d/t lack of peripheral access, remains asymptomatic Acute metabolic encephalopathy - Resolved - initially altered in the setting of urosepsis and hepatic encephalopathy. Now AOx3. - CT head negative - Elevated ammonia levels on presentation; now resolved Hypoglycemia - BS 66 on admission; no documented h/o of DM. - Patient unable to maintain blood sugar levels in the normal range. - Likely due to nutrition status - Glucose levels remain low, patient continuing to improve PO intake, otherwise asymptomatic Urosepsis - Resolved - presented with urinary symptoms. - UA grossly infected. ESBL on urine cx. Blood cx negative. - treated with ceftriaxone and zosyn, completed - no further abx indicated at this time. Elevated troponin | CAD | HFrEF - Resolved - peaked, likely demand in the setting of acute illness/AMS - HFrEF appears stable (Echo w/ EF 40-45% in 2020), CT chest w/ pulmonary edema/effusions Chronic Condition Management: - Insomnia: nortriptyline (holding to avoid sedation) - Hypothyroidism: levothyroxine - GERD: lansoprazole (no GERD sx, holding) - Depression: lexapro - Asthma: singulair, albuterol PRN (no wheezing) FEN: Low Na, Pureed Code status: DNR/DNI DVT ppx: Lovenox Dispo:med surg, pending SNF ([facility] bed being held) (2) Urinary tract infection: (3) Lethargy: (4) Acute metabolic encephalopathy: (5) Acute hypoxic respiratory failure: (6) HFrEF (heart failure with reduced ejection fraction): (7) Elevated troponin: (8) Acute kidney injury: (9) Hyperkalemia: (10) Hypoglycemia: (11) Asthma: (12) GERD (gastroesophageal reflux disease): (13) Insomnia: (14) Coronary artery disease: (15) Hypomagnesemia: (16) Anemia: (17) Depression: (18) Elevated bilirubin: (19) Thrombocytopenia: Admission and Anticipated Discharge Date Admission Date: August 07, 2023 Supervising Physician Co-Signing Physician Notes ATTESTATION I also saw the patient and confirmed corbett portions of the history and exam. I agree with the impression and plan in the resident documentation, and as summarized below. Awakens to voice. Nods. No distress appreciated. at bedside. EXAM 130/66, 83, 16, 36.6, 96% on room air Heart regular Respirations nonlabored DATA Labs Hemoglobin 6.9 Sodium 137, potassium 3.9, BUN 14, creatinine 0.33 AST 20, ALT 24, alkaline phosphatase 136 IMPRESSION & PLAN Anemia Once central nondisplaced, will transfuse Encephalopathy (resolved) metabolic - RHIANNON/hyperkalemia, diarrhea from recent C diff, UTI. RHIANNON and HyperK (resolved) Concern of underlying liver disease Patient/family declining liver biopsy Now that renal function is improved, CT liver four phase an option once IV access obtained Additional per resident documentation Subjective 08/27: Patient comfortable on exam. at bedside. No acute changes or concerns from nursing. No active bleeding. requesting to proceed with central line placement for blood and imaging contrast. Review of Systems Constitutional: As per HPI Physical Exam Physical Exam: Constitutional: no acute distress, pleasant and normal affect, AOx3 (forgets which hospital). HEENT: NCAT, moist mucous membranes CV: RRR, 2+ distal peripheral pulses, ongoing dependent edema to bilateral UE, trace bilateral LE edema Respiratory: No increased work of breathing, CTAB, no wheezes/rales/rhonchi Abdomen: Soft, nontender, and nondistended.No guarding. Skin: warm, dry, no cyanosis or clubbing, significant ecchymosis present to left arm/forearm (2/2 previous transfusion, healing) Neuro: no focal defects Results & Data Results & Data Vital Signs (Past 12 Hours) Vital Signs Temp Pulse Resp BP Pulse Ox O2 Del Method 08/26/23 23:18 36.7 C 98 H 18 136/79 95 Room Air 08/26/23 19:45 Room Air Resident Activity Tracking Resident Involvement: Resident Care Provided Care Provided: Adult Hospital Medicine (2) Urinary tract infection Hematuria presence: without hematuria Urinary tract infection type: site unspecified Qualified Code(s): N39.0 - Urinary tract infection, site not sp ecified"
[2023-08-27] MEDS: ENOXAPARIN INJ 40 MG/0.4 ML SYR SQ SCH (07:25)
[2023-08-27] MEDS: ESCITALOPRAM OXALATE 10 MG TAB PO SCH (07:25)
[2023-08-27] MEDS: HYDROmorphone HCL 2 MG TAB PO PRN (09:26)
--- NOTE | 2023-08-27 16:42 | Critical Care Consultation ---
Date of Consultation August 27, 2023 Assessment & Plan (1) Anemia: Plan Plan: Patient had prolonged stay in the hospital with being on comfort care and now off of comfort care PICC line was placed but it stopped working with a large hematoma on the left arm. As per the ultrasound team they are not able to get any peripheral access on her. Family wants to continue with care which includes blood transfusion. ICU was consulted to get central line. Patient herself cannot consent. Patient's Alli Caceres will be called and if he is agreeable then central line will be placed Overall prognosis is guarded. Case was discussed with RN at bedside Please note the above document was generated using voice recognition software. It may contain grammatical, syntax or spelling errors.Any formal questions or concerns about the content, text or information contained within the body of this dictation should be directly addressed to the provider for clarification. History of Present Illness Attending Physician: Paulo Manuel DO History of Present Illness 73-year-old female who was admitted to the hospital for encephalopathy Past medical history: CHF, EF 40-45%, extremity cardiomyopathy, hypertension, hypothyroidism, anemia, asthma Patient has prolonged stay in the hospital with UTI. She was on comfort measures. There has been issues with getting ask case for the patient She had a PICC line in the past but is not working anymore. ICU was consulted to see if he can put a central line in. At the time of examination patient was laying on the bed not in any acute distress She was oriented to only self. Answering questions in yes and no. Denied any headache, no nausea vomiting She does move left upper and left lower extremity on command Right upper extremity is weak. Allergies Allergy/AdvReac Type Severity Reaction Status Date / Time doxycycline Allergy Severe Anaphylaxis Verified 08/08/23 10:08 bacitracin Allergy Intermediate Hives, Verified 03/24/23 10:51 blisters clavulanic acid Allergy Intermediate Hives Verified 03/24/23 10:51 diphenhydramine Allergy Intermediate Hives Verified 03/24/23 10:51 iodine Allergy Intermediate Hives Verified 03/24/23 10:51 ketorolac Allergy Intermediate Hives Verified 03/24/23 10:51 meclofenamic acid Allergy Intermediate Hives Verified 03/24/23 10:51 neomycin Allergy Intermediate Hives, Verified 03/24/23 10:51 blisters NSAIDS (Non-Steroidal Allergy Intermediate Hives Verified 03/24/23 10:51 Anti-Inflamma (tolerates Celebrex) oxycodone Allergy Intermediate Hives Verified 03/24/23 10:51 (tolerates Vicodin) polymyxin B Allergy Intermediate Hives, Verified 03/24/23 10:51 blisters quinine Allergy Intermediate Hives Verified 03/24/23 10:51 Sulfa (Sulfonamide Allergy Intermediate Hives Verified 03/24/23 10:51 Antibiotics) tramadol Allergy Intermediate Hives, Verified 03/24/23 10:51 itching adhesive Allergy Mild Rash Verified 03/24/23 10:51 hydroxychloroquine Allergy Mild Rash Verified 03/24/23 10:51 latex Allergy Mild Rash Verified 03/24/23 10:51 methotrexate Allergy Mild Rash Verified 03/24/23 10:51 povidone-iodine Allergy Mild Rash Verified 03/24/23 10:51 meperidine AdvReac Intermediate N/V Verified 03/24/23 10:51 prednisone AdvReac Intermediate Made Verified 03/24/23 10:51 "bones soft" aspirin AdvReac Mild N/V Verified 03/24/23 10:51 Home Medications Medication Instructions Recorded Confirmed Type nitroglycerin 0.4 mg sublingual 0.4 mg sublingual Q5M PRN chest 02/22/21 08/07/23 Rx tablet (Nitrostat) pain #25 tabs calcium carbonate 600 mg-vitamin 1 tab PO QAM 08/24/21 08/07/23 History D3 5 mcg (200 unit) tablet acetaminophen 650 mg 650 mg PO Q8H Pain 12/04/21 08/07/23 History tablet,extended release (Tylenol Arthritis Pain) folic acid 1 mg tablet 1 mg PO QAM 05/24/22 08/07/23 History levothyroxine 75 mcg tablet 75 mcg PO QAM #90 tabs 02/25/23 08/07/23 Rx escitalopram oxalate 20 mg tablet 20 mg PO QAM #90 tabs 02/26/23 08/07/23 Rx (Lexapro) aspirin 81 mg tablet,delayed 81 mg PO QAM #90 tabs 05/20/23 08/07/23 Rx release lansoprazole 15 mg capsule,delayed 15 mg PO QAM #90 caps 05/20/23 08/07/23 Rx release (Prevacid 24Hr) albuterol sulfate 90 mcg/actuation 1 - 2 puff inhalation .Q 4-6 HRS 06/17/23 08/07/23 History aerosol inhaler (Ventolin HFA) PRN shortness of breath or wheezing menthol 0.44 %-zinc oxide 20.6 % 1 applic topical QID PRN skin 07/10/23 08/07/23 Rx topical ointment (Calmoseptine) irritation #113 grams montelukast 10 mg tablet 10 mg PO QAM #90 tabs 07/10/23 08/07/23 Rx (Singulair) nortriptyline 25 mg capsule 25 mg PO HS #90 caps 07/10/23 08/07/23 Rx polyethylene glycol 3350 17 17 g PO DAILY PRN constipation 07/10/23 08/07/23 Rx gram/dose oral powder (Miralax) #119 grams carvedilol 6.25 mg tablet 6.25 mg PO BIDM #180 tabs 07/31/23 08/07/23 Rx potassium chloride 10 mEq 10 meq PO QAM 08/07/23 08/07/23 History tablet,extended release Patient History Medical History (Updated 08/16/23 @ 09:34 by Hayley Webster MD) V-tach Liver abscess History of COVID-19 DX 05/2021 (NO SYMPTOMS>PT STATES WAS A FALSE POSITIVE) Anxiety and depression Cholecystitis with perforation of gallbladder Ischemic cardiomyopathy Coronary artery disease Cardiac catheterization -02/22/2021:Impression: 1. Severe CAD involving ostial/proximal LAD (100%), filling via left to left and right to left collaterals. 2. Otherwise nonobstructive CAD involving the mid circumflex. 3. No aortic stenosis. 4. Normal left-sided filling pressure. Anemia Hx of fracture Right shoulder AC joint fracture (10/2020) due to traumatic event > healing without surgical intervention Insomnia Lumbar spinal stenosis Steroid-induced osteoporosis IBS (irritable bowel syndrome) GERD (gastroesophageal reflux disease) Hypothyroidism History of right breast cancer s/p lumpectomy (1969)- no chemo or xrt Rheumatoid arthritis Hyperlipidemia Lumbar facet joint syndrome Sacroiliitis Allergic rhinitis Asthma Hypertension Surgical History History of biopsy Nausea and vomiting after administration of anesthetic agent History of cardiac cath NO - [place] - Dr. Arthur History of ERCP WITH STENT (NOT PRESENT) H/O cataract extraction R/L eye S/P ORIF (open reduction internal fixation) fracture Left ankle H/O arthroscopy of shoulder L shoulder S/p reverse total shoulder arthroplasty Left reverse TSA (02/26/19): Grade view 2, MAC#3, ETT 7 + PNB at [facility] (scope patch used) History of tonsillectomy History of foot surgery R/L History of arthroscopy of left knee History of right knee joint replacement History of total abdominal hysterectomy and bilateral salpingo-oophorectomy d/t endometriosis History of lumpectomy of right breast History of breast biopsy Family History Grandmother (Paternal) Family history of diabetes mellitus Grandmother (Maternal) Family history of diabetes mellitus Father Coronary heart disease Alzheimer disease Myocardial infarction Osteoarthritis COPD (chronic obstructive pulmonary disease) Lung disease Mother Myocardial infarction COPD (chronic obstructive pulmonary disease) Other No family history of adverse response to anesthesia Denies family history of Ovarian cancer Prostate cancer Breast cancer Colorectal cancer Social History Smoking Status: Never smoker Second Hand Exposure: Yes; Do You Dip or Chew Tobacco: No; Hx Alcohol Use: No Hx Substance Use: No Preferred Language: Nepali Communication Ability: Effective Visual Impairment: No Limitations Hearing Ability: Normal Medical Payment Poster Required: No Beliefs That Will Affect Care: None marital status: Current Living Situation: Spouse and Family Current Living Situation Comment: Home with family current occupational status: retired How many Children do You have: 2 Feels Safe at Home: Yes Childhood Exposure to Second-Hand Smoke: Yes Diet: regular Diet Comment: regular caffeine: Yes (coffee) during the past year weight has: remained stable Dental Care, Regularly: No Physical Activity Frequency: Daily Physical Activity Frequency Comment: walking indoors Seatbelt Use: always Sunscreen Use: No Assistive Devices: Bedside Commode, Scooter/Electric Scooter and Wheelchair Review of Systems 2 Review of Systems: All systems reviewed & are unremarkable except as noted in HPI & below and Unobtainable due to cognitive status Physical Exam 2 Physical Exam: Constitutional: No acute distress HEENT: EOMI, PERRLA Respiratory system: Decreased air entry bilaterally, no wheeze, no rhonchi, positive crackles bilateral lower lobes CVS: S1-S2 positive, no murmurs or gallops Abdomen: Soft, nontender, nondistended, positive bowel sounds x4 Extremities: +2 pulses bilaterally radialis/ dorsalis pedis, no cyanosis, +2 pitting edema bilateral lower extremity and upper extremity, anasarca Neuro: Awake alert oriented to self Psych: Flat mood and affect G/U: Positive Lord Musculoskeletal: Large hematoma appreciated in the left arm and forearm dorsal and ventral surface Skin: no rashes, warm and dry Lymphatic: no cervical or axillary lymphadenopathy Results & Data Results & Data Vital Signs (Past 12 Hours) Vital Signs Temp Pulse Resp BP Pulse Ox O2 Del Method 08/27/23 10:16 130/66 96 Room Air 08/27/23 07:36 36.6 C 83 16 142/69 H 92 Room Air 08/27/23 07:35 Room Air Laboratory Results 08/26/23 05:32 08/26/23 05:32 Coding Level of Care Code 87430 IN/OBS CONSULT LVL 3,45M Diagnoses Anemia D64.9
--- NOTE | 2023-08-28 01:19 | Procedure Note ---
Procedure Note Date of Service August 28, 2023 Note INTERNAL JUGULAR CENTRAL LINE PROCEDURE NOTE: Procedure: Internal Jugular Central Line Placement Proceduralist: Dave RUSH ([facility]) Attending: Dr. Adames Indication: Poor Venous Access, Multiple Lab Draws Necessary, etc. Anesthesia: [x]Lidocaine 1% [x]Consent was obtained from Alli via Phone as delegated to me by Dr. Adames. It was signed, witnessed, and placed on the chart prior to procedure. Indication, risks, and benefits were explained at length to to include . A time-out was completed verifying correct patient, procedure, site, positioning. Patient's right neck was scouted prior to procedure for adequate target. IJ was compressible without evidence of clot and no surrounding infection noted. Patients RIGHT Neck was cleansed and draped in the typical sterile fashion using Chloraprep. The Internal Jugular Vein and Carotid Artery were identified using ultrasound. The superficial tissue was anesthetized using 5 mL of 1% lidocaine without epinephrine under direct visualization with the ultrasound. After adequate anesthetization was achieved, the Internal Jugular vein was cannulated under direct ultrasound guidance using an introducer needle on a syringe. Good venous blood return was maintained prior to removal of syringe from introducer needle. Using Seldinger Technique, a guide wire was advanced through the introducer needle without resistance. The introducer needle was removed and ultrasound images were obtained of the guide wire within the Internal Jugular Vein. A small incision was made in penetrating fashion at the guide wire insertion site utilizing an 11 blade scalpel. The dilator was advanced to the vessel without resistance. The dilator was exchanged for the triple lumen catheter which was advanced into the vessel without resistance. The guide wire was removed intact from the catheter without issue. Claves were placed on each catheter tip with confirmation of good blood flow from each lumen. Each port was easily flushed with sterile saline. The catheter was placed at 17 cm and sutured in place. BioPatch was applied to the catheter and a sterile Tegaderm dressing was applied over the catheter with careful attention to sterility. Patient tolerated procedure well. No immediate complications were met. Post procedure x-ray was completed, placement was deep and withrdawn to 15cm alexander and no pneumothorax was noted. Images obtained are NOT saved for permanent record Procedural Ultrasound Guidance: Procedure Date: Indication: Direct Visualization for Central Line Placement Proceduralist: Dave RUSH ([facility]-) Attending: Dr. ADAMES Artery AND Vein visualized: YES Compressible Vein: YES Guidewire or Short Catheter seen in vein prior to dilation: YES Images obtained are NOT saved for permanent record. Coding CPT Codes Tubes, Drains, and Vasc Access - Tubes, Drains, and Vasc Access: [id number] Insertion Of Non-tunneled Catheter Age 7 Yrs> ([id number]) [facility] [place] Procedure Codes (Charges) Tubes, Drains, and Vasc Access Procedure 1: Tubes, Drains, and Vasc Access: [id number] Insertion Of Non-tunneled Catheter Age 7 Yrs>
[2023-08-28 03:09] LABS: Hematocrit (blood only) 18.8 % (37.0-47.0)
[2023-08-28] MEDS ORDERED: SODIUM CHLORIDE 0.9% 250 ML IV PRN (03:21)
[2023-08-28 03:30] LABS: Calcium 7.6 mg/dl (8.6-10.3); Potassium 3.6 mmol/L (3.5-5.1)
[2023-08-28 03:36] LABS: BUN Creatinine Ratio 58.8 (10-20); Est GFR (African American) 128.1 ml/min; Est GFR (Non-African American) 110.5 ml/min
[2023-08-28] MEDS: LEVOTHYROXINE SODIUM 75 MCG TABLET PO SCH (05:03)
[2023-08-28] MEDS ORDERED: LR 15ML/HR IV SCH (06:00)
--- NOTE | 2023-08-28 07:06 | Hospitalist Progress Note ---
"Date of Service August 28, 2023 Assessment & Plan (1) Comfort measures only status: Plan: 73 yo female with PMHx of ventricular tachycardia, liver abscess, CAD, IBS, RA, and HLD presenting with SOB and lethargy. Upon admission, patient appeared to be actively dying with severe multifactorial acute on chronic illness. After extensive discussion with family she was transitioned to comfort care 08/10. A few days after she remarkably awakened and was AOx3. is aware that her change of status is a remarkable surprise but that she still does have a very significant illness burden. She was changed from comfort measures only to cautious ongoing management of comorbidities 08/20. Now pending SNF placement. Diet ordered for comfort feeding and permission aspiration allowed as she is at high aspiration risk. Discussed aspiration risk versus nutritionlet know it would be okay to bring in food from home. Elevated Transaminases | Elevated Bilirubin | Thrombocytopenia | Edema - Likely 2/2 extensive biliary/hepatic disease burden including liver abscesses and biliary stenting Most likely with underlying liver disease (clinical picture concerning for cirrhosis vs type 4 RTA); liver bx has been contemplated for last several admissions, but at this time patient and do not feel she is well enough to proceed with liver bx, explained to patient & family that targeted treatment for her illness is limited without a specific tissue diagnosis. - CT A/P: small bilateral pleural effusions and a small amount of ascites, moderate to severe body wall edema - Patient and family electing to postpone liver biopsy for diagnosis to later date despite risks/benefits discussion - Lasix 40mg IV (08/24) which did improve edema, negative fluid balance, consider additional dose if worsening. - 08/27: Family requesting to proceed with [address] Liver (recommended by GI), but unable to proceed with imaging given lack of IV access. --- Central line placed overnight, family agreeable to proceed with [address] Scan of Liver Anemia, chronic - Hgb in 7s throughout hospitalization. Recent asymptomatic dips into 6s. S/p 1 unit PRBC (08/21) and 1 unit (08/23). No signs of active bleeding. HDS. - No evidence of acute blood loss; etiology likely multifactorial; malnutrition, iron deficiency, B12 deficiency, hemodilution, anemia of chronic disease - B12 and Iron wnl, but on lower end of normal, could consider supplementation - 12/27: Hgb < 7, patient requesting to proceed w/ transfusion but IV team remains unable to obtain access despite attempts via US guidance, patient's vasculature unable to support additional intravenous access at this time, continue ongoing goals of care discussions with family. Patient currently asymptomatic from anemia. --- Central line placed overnight, transfused 1 u. PRBC for Hgb 6, improved to 9.1. --- Patient with acutely increased LE/UE edema on exam s/p transfusion, 40 mg IV Lasix ordered. Acute metabolic encephalopathy - Resolved - initially altered in the setting of urosepsis and hepatic encephalopathy. Now AOx4. - CT head negative - Elevated ammonia levels on presentation; now resolved Hypoglycemia - BS 66 on admission; no documented h/o of DM. - Patient unable to maintain blood sugar levels in the normal range. - Likely due to nutrition status - Glucose levels remain low, patient continuing to improve PO intake, otherwise asymptomatic Urosepsis - Resolved - presented with urinary symptoms. - UA grossly infected. ESBL on urine cx. Blood cx negative. - treated with ceftriaxone and zosyn, completed - no further abx indicated at this time. Elevated troponin | CAD | HFrEF - Resolved - peaked, likely demand in the setting of acute illness/AMS - HFrEF appears stable (Echo w/ EF 40-45% in 2020), CT chest w/ pulmonary edema/effusions Chronic Condition Management: - Insomnia: nortriptyline (holding to avoid sedation) - Hypothyroidism: levothyroxine - GERD: lansoprazole (no GERD sx, holding) - Depression: lexapro - Asthma: singulair, albuterol PRN (no wheezing) FEN: Low Na, Pureed Code status: DNR/DNI DVT ppx: Lovenox Dispo:med surg, pending SNF ([facility] bed being held) (2) Urinary tract infection: (3) Lethargy: (4) Acute metabolic encephalopathy: (5) Acute hypoxic respiratory failure: (6) HFrEF (heart failure with reduced ejection fraction): (7) Elevated troponin: (8) Acute kidney injury: (9) Hyperkalemia: (10) Hypoglycemia: (11) Asthma: (12) GERD (gastroesophageal reflux disease): (13) Insomnia: (14) Coronary artery disease: (15) Hypomagnesemia: (16) Anemia: (17) Depression: (18) Elevated bilirubin: (19) Thrombocytopenia: Admission and Anticipated Discharge Date Admission Date: August 07, 2023 Supervising Physician Co-Signing Physician Notes ATTESTATION I also saw the patient and confirmed corbett portions of the history and exam. I agree with the impression and plan in the resident documentation, and as summarized below. Patient's is again at bedside. We had a discussion with regards to the CT utilizing the liver protocol. This morning, they were not so sure if they wanted to proceed, but rather wait and do it later. Discussed that her renal function is maximized and she has IV access to allow for the contrast, so would be logistically easy to complete today versus waiting. Also, results may provide both diagnostic clarity and some help with prognosis. EXAM 137/71, 90, 16, 36.7, 90% room air Heart regular Respirations nonlabored DATA Labs Hemoglobin 9.1 status post 1 unit packed red blood cells Started 134, potassium 3.6, BUN 20, creatinine 0.34 IMPRESSION & PLAN Anemia Improved status post 1 unit packed red blood cells Recheck CBC in a.m. Encephalopathy (resolved) metabolic - RHIANNON/hyperkalemia, diarrhea from recent C diff, UTI. RHAINNON and HyperK (resolved) Concern of underlying liver disease Patient/family declining liver biopsy After discussion with patient and , will proceed with CT scan of the liver (four-phase) Additional per resident documentation Subjective 08/28: Patient comfortable in bed this morning, at bedside. Patient received central line placement overnight, transfused for Hgb 6. No evidence of active bleeding. No chest pain, dyspnea, nausea, vomiting, or abdominal pain. No acute bleeding noted. Patient and family want to proceed with liver CT. Review of Systems Constitutional: As per HPI Physical Exam Physical Exam: Constitutional: no acute distress, pleasant and normal affect, AOx4 HEENT: NCAT, moist mucous membranes Neck: Central line intact (R), no bleeding or surrounding erythema CV: RRR, 2+ distal peripheral pulses, ongoing dependent edema to bilateral UE (worsened), 1+ pitting bilateral LE edema Respiratory: No increased work of breathing, CTAB, no wheezes/rales/rhonchi Abdomen: Soft, nontender, and nondistended.No guarding. Skin: warm, dry, no cyanosis or clubbing, significant ecchymosis present to left arm/forearm (2/2 previous transfusion, healing) Neuro: no focal defects Results & Data Results & Data Vital Signs (Past 12 Hours) Vital Signs Temp Pulse Pulse Resp BP BP Pulse Ox 08/28/23 07:02 36.8 C 90 16 163/75 H 98 08/28/23 05:00 36.8 C 90 16 163/75 H 98 08/28/23 05:00 36.8 C 86 16 153/78 H 97 08/28/23 04:30 36.5 C 94 H 16 157/81 H 96 08/28/23 04:15 36.4 C L 97 H 18 148/76 H 96 08/28/23 03:54 36.7 C 94 H 17 153/68 H 96 08/27/23 23:53 36.7 C 92 H 18 156/78 H 95 O2 Del Method O2 Flow Rate 08/28/23 07:02 4 08/28/23 05:00 08/28/23 05:00 08/28/23 04:30 08/28/23 04:15 08/28/23 03:54 08/27/23 23:53 Room Air Resident Activity Tracking Resident Involvement: Resident Care Provided Care Provided: Adult Hospital Medicine (2) Urinary tract infection Hematuria presence: without hematuria Urinary tract infection type: site unspecified Qualified Code(s): N39.0 - Urinary tract infection, site not specified"
[2023-08-28] MEDS: ENOXAPARIN INJ 40 MG/0.4 ML SYR SQ SCH (07:21)
[2023-08-28] MEDS: ESCITALOPRAM OXALATE 10 MG TAB PO SCH (07:21)
--- NOTE | 2023-08-28 07:50 | XRay Report ---
XR chest 1V portable CLINICAL HISTORY: post line placment- eval line/pthx COMPARISON STUDY: Chest radiograph and chest CT August 09, 2023. FINDINGS: Bilateral shoulder arthroplasties are incidentally noted. There is no pneumothorax followin g placement of a right internal jugular central venous catheter. The tip projects over the suprahepat ic IVC. The catheter could be withdrawn 5 cm. There are small bilateral pleural effusions. No radiogr aphic evidence for pulmonary edema. Left basilar opacity favors atelectasis. Cardiomediastinal silhou ette is stable. IMPRESSION: 1. No pneumothorax following placement of a right internal jugular central venous catheter. Tip proje cts over the suprahepatic IVC. The catheter could be withdrawn 5 cm. 2. Small bilateral pleural effusions. Left basilar opacity suggestive of atelectasis. ACT 112: Negative or not required by law. Electronically signed by: Rodney Gilbert M.D. 08/28/2023 7:47 AM
--- NOTE | 2023-08-28 08:16 | Critical Care Progress Note ---
Date of Service August 28, 2023 Assessment & Plan (1) Anemia: Plan Plan: S/p triple-lumen catheter in the right IJ. On the chest x-ray it seems to be deep but it was retracted by 3 cm after the chest x-ray was done and was placed at 15 cm. The site looks clean and dressing is in place Patient is clinically the same. Overall prognosis is poor. Critical care will sign off Please call directly with any questions Please note the above document was generated using voice recognition software. It may contain grammatical, syntax or spelling errors.Any formal questions or concerns about the content, text or information contained within the body of this dictation should be directly addressed to the provider for clarification. Admission and Anticipated Discharge Date Admission Date: August 07, 2023 Subjective Patient seen and examined at bedside. No acute distress, no adverse events overnight She was sleeping. Patient's was in the room She had a breakfast in the morning Denies any headache, no chest pain, no shortness of breath Review of Systems 2 Review of Systems: All systems reviewed & are unremarkable except as noted in Subjective and Unobtainable due to cognitive status Physical Exam 2 Physical Exam: Constitutional: No acute distress HEENT: EOMI, PERRLA Respiratory system: Decreased air entry bilaterally, no wheeze, no rhonchi, positive crackles bilateral lower lobes CVS: S1-S2 positive, no murmurs or gallops Abdomen: Soft, nontender, nondistended, positive bowel sounds x4 Extremities: +2 pulses bilaterally radialis/ dorsalis pedis, no cyanosis, +2 pitting edema bilateral lower extremity and upper extremity, anasarca Neuro: Awake alert oriented to self Psych: Flat mood and affect G/U: Positive Lord Musculoskeletal: Large hematoma appreciated in the left arm and forearm dorsal and ventral surface Skin: no rashes, warm and dry Lymphatic: no cervical or axillary lymphadenopathy Results & Data Results & Data Vital Signs (Past 12 Hours) Vital Signs Temp Pulse Pulse Resp BP BP BP 08/28/23 07:27 36.7 C 90 16 137/71 08/28/23 07:02 36.8 C 90 16 163/75 H 08/28/23 05:00 36.8 C 90 16 163/75 H 08/28/23 05:00 36.8 C 86 16 153/78 H 08/28/23 04:30 36.5 C 94 H 16 157/81 H 08/28/23 04:15 36.4 C L 97 H 18 148/76 H 08/28/23 03:54 36.7 C 94 H 17 153/68 H 08/27/23 23:53 36.7 C 92 H 18 156/78 H Pulse Ox O2 Del Method O2 Flow Rate 08/28/23 07:27 98 Room Air 08/28/23 07:02 98 4 08/28/23 05:00 98 08/28/23 05:00 97 08/28/23 04:30 96 08/28/23 04:15 96 08/28/23 03:54 96 08/27/23 23:53 95 Room Air Laboratory Results 08/28/23 01:45 08/28/23 01:45 Coding Level of Care Code 32258 SUB INP/OBS CARE 09/25MIN Diagnoses Anemia D64.9
[2023-08-28 08:38] LABS: Hematocrit (blood only) 26.8 % (37.0-47.0); Hemoglobin 9.1 g/dl (12.0-16.0)
[2023-08-28] MEDS ORDERED: FUROSEMIDE 40 MG/4 ML VIAL IV ONE (10:00)
[2023-08-29] MEDS: LEVOTHYROXINE SODIUM 75 MCG TABLET PO SCH (05:17)
--- NOTE | 2023-08-29 06:59 | Hospitalist Progress Note ---
"Date of Service August 29, 2023 Assessment & Plan (1) Comfort measures only status: Plan: 73 yo female with PMHx of ventricular tachycardia, liver abscess, CAD, IBS, RA, and HLD presenting with SOB and lethargy. Upon admission, patient appeared to be actively dying with severe multifactorial acute on chronic illness. After extensive discussion with family she was transitioned to comfort care 08/10. A few days after she remarkably awakened and was AOx3. is aware that her change of status is a remarkable surprise but that she still does have a very significant illness burden. She was changed from comfort measures only to cautious ongoing management of comorbidities 08/20. Now pending SNF placement. Diet ordered for comfort feeding and permission aspiration allowed as she is at high aspiration risk. Discussed aspiration risk versus nutritionlet know it would be okay to bring in food from home. Elevated Transaminases | Elevated Bilirubin | Thrombocytopenia | Edema - Likely 2/2 extensive biliary/hepatic disease burden including liver abscesses and biliary stenting Most likely with underlying liver disease (clinical picture concerning for cirrhosis vs type 4 RTA); liver bx has been contemplated for last several admissions, but at this time patient and do not feel she is well enough to proceed with liver bx, explained to patient & family that targeted treatment for her illness is limited without a specific tissue diagnosis. - CT A/P: small bilateral pleural effusions and a small amount of ascites, moderate to severe body wall edema - Patient and family electing to postpone liver biopsy for diagnosis to later date despite risks/benefits discussion - Lasix 40mg IV (08/24) which did improve edema, negative fluid balance, consider additional dose if worsening. - 08/27: Family requesting to proceed with [address] Liver (recommended by GI), but unable to proceed with imaging given lack of IV access. --- Central line placed overnight, family agreeable to proceed with [address] Scan of Liver (reviewed with scheduling, patient pending scan) Anemia, chronic - Hgb in 7s throughout hospitalization. Recent asymptomatic dips into 6s. S/p 1 unit PRBC (08/21) and 1 unit (08/23). No signs of active bleeding. HDS. - No evidence of acute blood loss; etiology likely multifactorial; malnutrition, iron deficiency, B12 deficiency, hemodilution, anemia of chronic disease - B12 and Iron wnl, but on lower end of normal, could consider supplementation - 08/27: Hgb < 7, patient requesting to proceed w/ transfusion but IV team remains unable to obtain access despite attempts via US guidance, patient's vasculature unable to support additional intravenous access at this time, continue ongoing goals of care discussions with family. Patient currently asymptomatic from anemia. - Central line placed [id number], transfused 1 u. PRBC for Hgb 6, improved to 9.1. LE edema improved with 40 mg IV Lasix. --- Hgb @ 8.8, continue to follow. Hgb would need to be stable for 2-3 days w/o transfusion for Central line removal and dc to [facility]. Acute metabolic encephalopathy - Resolved - initially altered in the setting of urosepsis and hepatic encephalopathy. Now AOx4. - CT head negative - Elevated ammonia levels on presentation; now resolved Hypoglycemia - BS 66 on admission; no documented h/o of DM. - Patient unable to maintain blood sugar levels in the normal range. - Likely due to nutrition status - Glucose levels remain low, patient continuing to improve PO intake, otherwise asymptomatic Urosepsis - Resolved - presented with urinary symptoms. - UA grossly infected. ESBL on urine cx. Blood cx negative. - treated with ceftriaxone and zosyn, completed - no further abx indicated at this time. Elevated troponin | CAD | HFrEF - Resolved - peaked, likely demand in the setting of acute illness/AMS - HFrEF appears stable (Echo w/ EF 40-45% in 2020), CT chest w/ pulmonary edema/effusions Chronic Condition Management: - Insomnia: nortriptyline (holding to avoid sedation) - Hypothyroidism: levothyroxine - GERD: lansoprazole (no GERD sx, holding) - Depression: lexapro - Asthma: singulair, albuterol PRN (no wheezing) FEN: Low Na, Pureed Code status: DNR/DNI DVT ppx: Lovenox Dispo:med surg, pending SNF ([facility] bed being held) (2) Urinary tract infection: (3) Lethargy: (4) Acute metabolic encephalopathy: (5) Acute hypoxic respiratory failure: (6) HFrEF (heart failure with reduced ejection fraction): (7) Elevated troponin: (8) Acute kidney injury: (9) Hyperkalemia: (10) Hypoglycemia: (11) Asthma: (12) GERD (gastroesophageal reflux disease): (13) Insomnia: (14) Coronary artery disease: (15) Hypomagnesemia: (16) Anemia: (17) Depression: (18) Elevated bilirubin: (19) Thrombocytopenia: Admission and Anticipated Discharge Date Admission Date: August 07, 2023 Supervising Physician Co-Signing Physician Notes I personally examined the patient and verified corbett points of history and exam, discussed case, and agree with decision making and plan documented by Dr. Fitzpatrick. Patient at bedside during evaluation. Hemoglobin has been stable. Plan is to proceed with CT imaging of liver. Central line remains in place. Reviewed plan for patient to proceed to rehabilitation. Subjective 08/29: Patient increasingly alert this morning. Notes that she is feeling improved and without pain. No chest pain, dyspnea, nausea, vomiting, or abdominal pain. No acute bleeding noted. Patient notes that the pain in her bottom is improved, but that she occasionally has back pain with repositioning. Declined pain medication. Review of Systems Constitutional: As per HPI Physical Exam Physical Exam: Constitutional: no acute distress, pleasant and normal affect, AOx4 HEENT: NCAT, moist mucous membranes Neck: Central line intact (R), no bleeding or surrounding erythema CV: RRR, 2+ distal peripheral pulses, ongoing dependent edema to bilateral UE (improved), trace bilateral LE edema Respiratory: No increased work of breathing, CTAB, no wheezes/rales/rhonchi Abdomen: Soft, nontender, and nondistended.No guarding. Skin: warm, dry, no cyanosis or clubbing, ecchymosis present to left arm/forearm (2/2 previous transfusion, healing) Neuro: no focal defects Results & Data Results & Data Vital Signs (Past 12 Hours) Vital Signs Temp Pulse Resp BP Pulse Ox O2 Del Method 08/28/23 20:24 36.4 C L 86 16 169/74 H 97 Room Air Resident Activity Tracking Resident Involvement: Resident Care Provided Care Provided: Adult Hospital Medicine (2) Urinary tract infection Hematuria presence: without hematuria Urinary tract infection type: site unspecified Qualified Code(s): N39.0 - Urinary tract infection, site not s pecified"
[2023-08-29 08:23] LABS: Hematocrit (blood only) 26.3 % (37.0-47.0); Hemoglobin 8.8 g/dl (12.0-16.0)
[2023-08-29] MEDS: ESCITALOPRAM OXALATE 10 MG TAB PO SCH (09:54)
[2023-08-29] MEDS: ENOXAPARIN INJ 40 MG/0.4 ML SYR SQ SCH (09:54)
--- NOTE | 2023-08-29 16:39 | XRay Report ---
XR chest 1V portable HISTORY: 73 years-old Female Confirmation of line placement COMPARISON: Chest radiograph 08/28/2023 TECHNIQUE: AP view of the chest FINDINGS: Cardiac mediastinal and hilar silhouettes are within normal limits. No pneumothorax, pleural effusion or airspace consolidation. Dual-lumen right IJ central venous catheter distal tip projects over the right atrium. Bilateral shoulder arthroplasties. Bones appear grossly intact. IMPRESSION: 1. No acute processes of the chest. 2. Distal tip of right IJ central venous catheter projects over the right atrium. Again, this could b e withdrawn approximately 5 cm. ACT 112: Negative or not required by law. The above report was generated using voice recognition software. It may contain grammatical, syntax o r spelling errors. Electronically signed by: Greyson Merchant M.D. 08/29/2023 4:37 PM
[2023-08-29] MEDS: HYDROmorphone HCL 2 MG TAB PO PRN (19:29)
[2023-08-30] MEDS: LEVOTHYROXINE SODIUM 75 MCG TABLET PO SCH (05:41)
[2023-08-30 07:17] LABS: Hematocrit (blood only) 26.2 % (37.0-47.0); Hemoglobin 8.5 g/dl (12.0-16.0); Mean Corpuscular Hgb Conc 32.4 g/dL (32.0-36.0); Mean Corpuscular Volume 107.8 fL (80.0-100.0); Mean Platelet Volume 12.1 fL (9.4-12.4); Platelet Count 89 K/uL (130-400); RDW Coefficient of Variation 22.5 % (11.5-14.5); RDW Standard Deviation 85.7 fL (36.4-46.3); Red Blood Count 2.43 M/uL (4.20-5.40); White Blood Count 5.46 K/ul (4.8-10.8)
--- NOTE | 2023-08-30 07:32 | Hospitalist Progress Note ---
"Date of Service August 30, 2023 Assessment & Plan (1) Comfort measures only status: (2) Urinary tract infection: (3) Lethargy: (4) Acute metabolic encephalopathy: (5) Acute hypoxic respiratory failure: (6) HFrEF (heart failure with reduced ejection fraction): (7) Elevated troponin: (8) Acute kidney injury: (9) Hyperkalemia: (10) Hypoglycemia: (11) Asthma: (12) GERD (gastroesophageal reflux disease): (13) Insomnia: (14) Coronary artery disease: (15) Hypomagnesemia: (16) Anemia: (17) Depression: (18) Elevated bilirubin: (19) Thrombocytopenia: Plan 73 yo female with PMHx of ventricular tachycardia, liver abscess, CAD, IBS, RA, and HLD presenting with SOB and lethargy. Upon admission, patient appeared to be actively dying with severe multifactorial acute on chronic illness. After extensive discussion with family she was transitioned to comfort care 08/10. A few days after she remarkably awakened and was AOx3. is aware that her change of status is a remarkable surprise but that she still does have a very significant illness burden. She was changed from comfort measures only to cautious ongoing management of comorbidities 08/20. Now pending SNF placement. Diet ordered for comfort feeding and permission aspiration allowed as she is at high aspiration risk. Discussed aspiration risk versus nutritionlet know it would be okay to bring in food from home. Elevated Transaminases | Elevated Bilirubin | Thrombocytopenia | Edema - Likely 2/2 extensive biliary/hepatic disease burden including liver abscesses and biliary stenting Most likely with underlying liver disease (clinical picture concerning for cirrhosis vs type 4 RTA); liver bx has been contemplated for last several admissions, but at this time patient and do not feel she is well enough to proceed with liver bx, explained to patient & family that targeted treatment for her illness is limited without a specific tissue diagnosis. - CT A/P: small bilateral pleural effusions and a small amount of ascites, m oderate to severe body wall edema - Patient and family electing to postpone liver biopsy for diagnosis to later date despite risks/benefits discussion - Lasix 40mg IV (08/24) which did improve edema, negative fluid balance, consider additional dose if worsening. - 08/27: Family requesting to proceed with [address] Liver (recommended by GI), but unable to proceed with imaging given lack of IV access. - 08/30: Plan to proceed with four-phase CT scan of liver, patient currently has a central line in place though will need to be moved back 5 cm per x-ray before proceeding with CT scanning. Will plan to move back this afternoon and reimage prior to CT scan Anemia, chronic - Hgb in 7s throughout hospitalization. Recent asymptomatic dips into 6s. S/p 1 unit PRBC (08/21) and 1 unit (08/23). No signs of active bleeding. HDS. - No evidence of acute blood loss; etiology likely multifactorial; malnutrition, iron deficiency, B12 deficiency, hemodilution, anemia of chronic disease - B12 and Iron wnl, but on lower end of normal, could consider supplementation - 08/27: Hgb < 7, patient requesting to proceed w/ transfusion but IV team remains unable to obtain access despite attempts via US guidance, patient's vasculature unable to support additional intravenous access at this time, continue ongoing goals of care discussions with family. Patient currently asymptomatic from anemia. - Central line placed overnight 08/28, transfused 1 u. PRBC for Hgb 6, improved to 9.1. LE edema improved with 40 mg IV Lasix. -Fecal blood occult negative. -Hemoglobin stable at this time, will need to be stable for 2 to 3 days without transfusion so that central line can be removed and patient can be discharged to [facility]. Acute metabolic encephalopathy - Resolved - initially altered in the setting of urosepsis and hepatic encephalopathy. Now AOx4. - CT head negative - Elevated ammonia levels on presentation; now resolved Hypoglycemia - BS 66 on admission; no documented h/o of DM. - Patient unable to maintain blood sugar levels in the normal range. - Likely due to nutrition status - Glucose levels remain low, patient continuing to improve PO intake, otherwise asymptomatic Urosepsis - Resolved - presented with urinary symptoms. - UA grossly infected. ESBL on urine cx. Blood cx negative. - treated with ceftriaxone and zosyn, completed - no further abx indicated at this time. Elevated troponin | CAD | HFrEF - Resolved - peaked, likely demand in the setting of acute illness/AMS - HFrEF appears stable (Echo w/ EF 40-45% in 2020), CT chest w/ pulmonary edema/effusions Chronic Condition Management: - Insomnia: nortriptyline (holding to avoid sedation) - Hypothyroidism: levothyroxine - GERD: lansoprazole (no GERD sx, holding) - Depression: lexapro - Asthma: singulair, albuterol PRN (no wheezing) FEN: Low Na, Pureed Code status: DNR/DNI DVT ppx: Lovenox Dispo:med surg, pending SNF ([facility] bed being held) Admission and Anticipated Discharge Date Admission Date: August 07, 2023 Supervising Physician Co-Signing Physician Notes I personally examined the patient and verified corbett points of history and exam, discussed case, and agree with decision making and plan documented by Dr. Fitzpatrick. and family member at bedside. Hemoglobin 8.5. CT imaging of liver pending. Plan remains for patient to be discharged to rehab at [facility]. Subjective Patient seen bedside this morning. States that she feels good. States that she is able to move her hands more and feels stronger. Denies any chest pain, dyspnea, nausea, vomiting, or ab pain. Review of Systems Review of Systems: All systems reviewed & are unremarkable except as noted in Subjective Physical Exam Physical Exam: Constitutional: no acute distress, pleasant and normal affect, AOx4 HEENT: NCAT, moist mucous membranes Neck: Central line intact (R), no bleeding or surrounding erythema CV: RRR, 2+ distal peripheral pulses, trace bilateral LE edema Respiratory: No increased work of breathing, CTAB, no wheezes/rales/rhonchi Abdomen: Soft, nontender, and nondistended.No guarding. Results & Data Results & Data Vital Signs (Past 12 Hours) Vital Signs Temp Pulse Resp BP BP Pulse Ox O2 Del Method 08/30/23 07:17 36.4 C L 85 16 119/71 96 Room Air 08/29/23 20:28 36.5 C 96 H 18 170/74 H 97 Room Air Resident Activity Tracking Resident Involvement: Resident Care Provided Care Provided: Adult Hospital Medicine (2) Urinary tract infection Hematuria presence: without hematuria Urinary tract infection type: site unspecified Qualified Code(s): N39.0 - Urinary tract infection, site not specified"
[2023-08-30 07:38] LABS: Albumin Globulin Ratio 0.8 (0.9-2); Albumin Level 1.9 gm/dl (3.4-5.0); BUN Creatinine Ratio 67.9 (10-20); Bilirubin,Total 1.3 mg/dl (0.2-1.0); Calcium 7.4 mg/dl (8.6-10.3); Creatinine Clr Calc Pharmacy 145.8 ml/min; Est GFR (African American) 136.6 ml/min; Est GFR (Non-African American) 117.8 ml/min; Globulin 2.4 gm/dl (2.5-4.0); Potassium 2.7 mmol/L (3.5-5.1); Total Protein 4.3 gm/dl (6.0-8.3)
[2023-08-30] MEDS: ESCITALOPRAM OXALATE 10 MG TAB PO SCH (08:57)
[2023-08-30] MEDS: ENOXAPARIN INJ 40 MG/0.4 ML SYR SQ SCH (08:58)
[2023-08-30] MEDS ORDERED: POTASSIUM CHLORIDE CRTAB 20 MEQ TABCR PO STA (09:04)
--- NOTE | 2023-08-30 18:16 | XRay Report ---
XR chest 1V portable HISTORY: 73 years-old Female Right IJ central venous catheter placement status post placement of a r ight IJ central venous catheter COMPARISON: 08/29/2023 TECHNIQUE: AP view of the chest FINDINGS: FINDINGS: Cardiac mediastinal and hilar silhouettes are within normal limits. No pneumothorax, pleura l effusion or airspace consolidation. Dual-lumen right IJ central venous catheter distal tip now proj ects over the expected location of the superior cavoatrial junction. Bilateral shoulder arthroplastie s. Bones appear grossly intact. IMPRESSION: 1. No acute processes of the chest. 2. Distal tip of right IJ central venous catheter projects over the superior cavoatrial junction. ACT 112: Negative or not required by law. The above report was generated using voice recognition software. It may contain grammatical, syntax o r spelling errors. Electronically signed by: Greyson Merchant M.D. 08/30/2023 6:15 PM
[2023-08-31] MEDS: LEVOTHYROXINE SODIUM 75 MCG TABLET PO SCH (05:34)
--- NOTE | 2023-08-31 06:37 | Hospitalist Progress Note ---
"Date of Service August 31, 2023 Assessment & Plan (1) Comfort measures only status: (2) Urinary tract infection: (3) Lethargy: (4) Acute metabolic encephalopathy: (5) Acute hypoxic respiratory failure: (6) HFrEF (heart failure with reduced ejection fraction): (7) Elevated troponin: (8) Acute kidney injury: (9) Hyperkalemia: (10) Hypoglycemia: (11) Asthma: (12) GERD (gastroesophageal reflux disease): (13) Insomnia: (14) Coronary artery disease: (15) Hypomagnesemia: (16) Anemia: (17) Depression: (18) Elevated bilirubin: (19) Thrombocytopenia: Plan 73 yo female with PMHx of ventricular tachycardia, liver abscess, CAD, IBS, RA, and HLD presenting with SOB and lethargy. Upon admission, patient appeared to be actively dying with severe multifactorial acute on chronic illness. After extensive discussion with family she was transitioned to comfort care 08/10. A few days after she remarkably awakened and was AOx3. is aware that her change of status is a remarkable surprise but that she still does have a very significant illness burden. She was changed from comfort measures only to cautious ongoing management of comorbidities 08/20. Now pending SNF placement. Diet ordered for comfort feeding and permission aspiration allowed as she is at high aspiration risk. Discussed aspiration risk versus nutritionlet know it would be okay to bring in food from home. Elevated Transaminases | Elevated Bilirubin | Thrombocytopenia | Edema - Likely 2/2 extensive biliary/hepatic disease burden including liver abscesses and biliary stenting Most likely with underlying liver disease (clinical picture concerning for cirrhosis vs type 4 RTA); liver bx has been contemplated for last several admissions, but at this time patient and do not feel she is well enough to proceed with liver bx, explained to patient & family that targeted treatment for her illness is limited without a specific tissue diagnosis. - CT A/P: small bilateral pleural effusions and a small amount of ascites, m oderate to severe body wall edema - Patient and family electing to postpone liver biopsy for diagnosis to later date despite risks/benefits discussion - Lasix 40mg IV (08/24) which did improve edema, negative fluid balance, consider additional dose if worsening. - 08/27: Family requesting to proceed with [address] Liver (recommended by GI), but unable to proceed with imaging given lack of IV access. - 08/31: four-phase CT scan of liver performed today, pending results. Anemia, chronic - Hgb in 7s throughout hospitalization. Recent asymptomatic dips into 6s. S/p 1 unit PRBC (08/21) and 1 unit (08/23). No signs of active bleeding. HDS. - No evidence of acute blood loss; etiology likely multifactorial; malnutrition, iron deficiency, B12 deficiency, hemodilution, anemia of chronic disease - B12 and Iron wnl, but on lower end of normal, could consider supplementation - 08/27: Hgb < 7, patient requesting to proceed w/ transfusion but IV team remains unable to obtain access despite attempts via US guidance, patient's vasculature unable to support additional intravenous access at this time, continue ongoing goals of care discussions with family. Patient currently asymptomatic from anemia. - Central line placed overnight 08/28, transfused 1 u. PRBC for Hgb 6, improved to 9.1. LE edema improved with 40 mg IV Lasix. -Fecal blood occult negative. -Hemoglobin stable at this time, will plan to remove central line this afternoon. Acute metabolic encephalopathy - Resolved - initially altered in the setting of urosepsis and hepatic encephalopathy. Now AOx4. - CT head negative - Elevated ammonia levels on presentation; now resolved Hypoglycemia - BS 66 on admission; no documented h/o of DM. - Patient unable to maintain blood sugar levels in the normal range. - Likely due to nutrition status - Glucose levels remain low, patient continuing to improve PO intake, otherwise asymptomatic Urosepsis - Resolved - presented with urinary symptoms. - UA grossly infected. ESBL on urine cx. Blood cx negative. - treated with ceftriaxone and zosyn, completed - no further abx indicated at this time. Elevated troponin | CAD | HFrEF - Resolved - peaked, likely demand in the setting of acute illness/AMS - HFrEF appears stable (Echo w/ EF 40-45% in 2020), CT chest w/ pulmonary edema/effusions Chronic Condition Management: - Insomnia: nortriptyline (holding to avoid sedation) - Hypothyroidism: levothyroxine - GERD: lansoprazole (no GERD sx, holding) - Depression: lexapro - Asthma: singulair, albuterol PRN (no wheezing) FEN: Low Na, Pureed Code status: DNR/DNI DVT ppx: Lovenox Dispo:med surg, was accepted at [facility], plan to discharge today though case management states that auth needs to be renewed and [facility] is closed today. Admission and Anticipated Discharge Date Admission Date: August 07, 2023 Supervising Physician Co-Signing Physician Notes I personally examined the patient and verified corbett points of history and exam, discussed case, and agree with decision making and plan documented by Dr. Chase. Four-phase liver CT obtained today, results pending. Overall, this will be helpful for determining prognosis of advanced liver disease. Central line to be removed following morning lab draw if kidney function and hemoglobin remains stable. Discharge plan after prolonged hospital stay is for patient to go to facility for rehabilitation ([facility]), will likely need reauthorization. Discussed with patient and her a long road ahead in terms of recovery, they are understanding, would like to proceed with efforts to get Tammy back home. Subjective Patient seen bedside this morning. States that she feels good. Denies any chest pain, dyspnea, nausea, vomiting, or ab pain. Review of Systems Review of Systems: All systems reviewed & are unremarkable except as noted in Subjective Physical Exam Physical Exam: Constitutional: no acute distress, pleasant and normal affect, AOx4 HEENT: NCAT, moist mucous membranes Neck: Central line intact (R), no bleeding or surrounding erythema CV: RRR, 2+ distal peripheral pulses, trace bilateral LE edema Respiratory: No increased work of breathing, CTAB, no wheezes/rales/rhonchi Abdomen: Soft, nontender, and nondistended.No guarding. Results & Data Results & Data Vital Signs (Past 12 Hours) Vital Signs Temp Pulse Resp BP Pulse Ox O2 Del Method 08/30/23 19:56 36.6 C 100 H 18 161/80 H 98 Room Air Resident Activity Tracking Resident Involvement: Resident Care Provided Care Provided: Adult Hospital Medicine (2) Urinary tract infection Hematuria presence: without hematuria Urinary tract infection type: site unspecified Qualified Code(s): N39.0 - Urinary tract infection, site not specified"
[2023-08-31 08:01] LABS: Basophils # (auto) 0.02 K/uL (0.00-0.20); Basophils % (auto) 0.3 %; Eosinophils # (auto) 0.14 K/uL (0.00-0.50); Eosinophils % (auto) 2.1 %; Hematocrit (blood only) 25.5 % (37.0-47.0); Hemoglobin 8.4 g/dl (12.0-16.0); Immature Granulocytes # (auto) 0.03 K/uL (0.01-0.20); Immature Granulocytes % (auto) 0.4 %; Lymphocytes # (auto) 1.06 K/uL (1.20-3.40); Lymphocytes % (auto) 15.6 %; Mean Corpuscular Hemoglobin 35.1 pg (25.0-34.0); Mean Corpuscular Hgb Conc 32.9 g/dL (32.0-36.0); Mean Corpuscular Volume 106.7 fL (80.0-100.0); Mean Platelet Volume 12.1 fL (9.4-12.4); Monocytes # (auto) 0.69 K/uL (0.11-0.59); Monocytes % (auto) 10.2 %; Neutrophils # (auto) 4.84 K/uL (1.40-6.50); Neutrophils % (auto) 71.4 %; Platelet Count 88 K/uL (130-400); RDW Coefficient of Variation 21.4 % (11.5-14.5); Red Blood Count 2.39 M/uL (4.20-5.40); White Blood Count 6.78 K/ul (4.8-10.8)
[2023-08-31 08:15] LABS: BUN Creatinine Ratio 70.8 (10-20); Calcium 7.5 mg/dl (8.6-10.3); Est GFR (African American) 143.7 ml/min; Magnesium 1.4 mg/dl (1.7-2.4); Potassium 3.2 mmol/L (3.5-5.1)
[2023-08-31 08:23] LABS: Anisocytosis Present; Polychromasia 1+; Tear Drop Cells 1+
[2023-08-31] MEDS: ENOXAPARIN INJ 40 MG/0.4 ML SYR SQ SCH (08:47)
[2023-08-31] MEDS: ESCITALOPRAM OXALATE 10 MG TAB PO SCH (08:48)
[2023-08-31] MEDS: MAGNESIUM SULFATE / D5W 1 GM/100 ML BAG IV SCH ×3 (10:22→14:40)
[2023-08-31] MEDS ORDERED: OPTIRAY 320 500ml IV ONE (11:11)
[2023-08-31] MEDS: HYDROmorphone HCL 2 MG TAB PO PRN (17:09)
--- NOTE | 2023-08-31 19:35 | CT Scan Report ---
CT SCAN OF THE ABDOMEN COMBO LIVER PROTOCOL CLINICAL HISTORY: Elevated hepatic transaminases. COMPARISON STUDY: Abdominal CT dated 08/24/2023. TECHNIQUE: Informed follow the IV administration of 90 cc of Optiray 320, CT scan of the abdomen is performed from the lung bases to the pelvic inlet using the liver protocol. Images are reviewed in th e axial, sagittal, and coronal planes. IV contrast was administered without complication. A dose lowe ring technique was utilized adhering to the principles of ALARA. The examination is degraded by motio n artifact. There is also streak artifact from the left arm which could not be elevated above the abd omen. CT DOSE: 2815.01 mGy.cm FINDINGS: Lung bases: The heart is normal in size and without pericardial effusion. The coronary arteries are d ensely calcified. There is diminished attenuation of the cardiac blood pool as compared to myocardium suggesting anemia. There are small pleural effusions with dependent atelectasis. There is a small hi atal hernia. Liver: The contrast-enhanced liver is normal in size and slightly heterogeneous in attenuation. Quest ion mild nodularity of the surface contour. There is no intrahepatic biliary ductal dilatation. Scatt ered hepatic cysts measuring up to 16 mm. Additional subcentimeter hepatic hypodensities also likely represent cysts but are too small for definitive characterization. No enhancing hepatic lesion is marcelina ntified. Hepatic and portal vasculature: Hepatic arterial anatomy is conventional. The hepatic veins, the port al veins, superior mesenteric vein, and the splenic vein are patent. Gallbladder: The gallbladder wall is mildly thickened and irregular. The gallbladder is not distended . This is similar to prior studies and may be related to prior cholecystitis. Spleen: Normal in size and attenuation. 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 The pancreas is mildly atrophic and otherwise grossly unremarkable. Adrenal glands: Unremarkable. Kidneys: The contrast enhanced kidneys demonstrate mild cortical atrophy and are without hydronephros is. No renal calculi are identified on the unenhanced series. The kidneys enhance symmetrically. A 1. 8 cm cyst is seen in the left lower pole. Abdominal vasculature: The abdominal aorta is normal in course and caliber noting moderate atheroscle rotic calcification. Bowel: Imaged portions of the bowel show no evidence of obstruction. Mild wall thickening and edema s uggestive wall of the colon and there is nonspecific focal thickening throughout the small bowel. Peritoneum: There is a small volume of perihepatic ascites. There is also free fluid in the right par acolic gutter. No intraperitoneal free air is seen. Lymphadenopathy: None. Skeletal structures: The skeletal structures are osteopenic. There is moderate to severe lumbosacral spondylosis. Thoracolumbar compression deformities are similar to previous. This includes a severe co mpression deformity of T12 with retropulsed fragments. No lytic or blastic lesions are seen. Soft tissues: There is body wall edema. IMPRESSION: 1. The liver is normal in size and slightly heterogeneous in attenuation. 2. No enhancing hepatic mass lesion is seen. 3. Small volume abdominal ascites. 4. There is mild wall thickening and edema suggested involving the right colon, as well as fold thick ening of the small bowel loops. This could be related to hypoproteinemia/fluid overload. Correlate cl inically for evidence of a nonspecific enterocolitis. 5. Small pleural effusions and body wall edema. 6. Additional findings as above. ACT 112: Negative or not required by law. Electronically signed by: Samm Ferrer M.D. 08/31/2023 7:33 PM
[2023-09-01] MEDS: LEVOTHYROXINE SODIUM 75 MCG TABLET PO SCH (05:43)
[2023-09-01 05:58] LABS: Basophils # (auto) 0.02 K/uL (0.00-0.20); Basophils % (auto) 0.3 %; Eosinophils # (auto) 0.18 K/uL (0.00-0.50); Eosinophils % (auto) 2.7 %; Hematocrit (blood only) 24.8 % (37.0-47.0); Immature Granulocytes # (auto) 0.03 K/uL (0.01-0.20); Immature Granulocytes % (auto) 0.5 %; Lymphocytes # (auto) 1.35 K/uL (1.20-3.40); Lymphocytes % (auto) 20.4 %; Mean Corpuscular Hemoglobin 34.8 pg (25.0-34.0); Mean Corpuscular Hgb Conc 32.3 g/dL (32.0-36.0); Mean Corpuscular Volume 107.8 fL (80.0-100.0); Mean Platelet Volume 12.1 fL (9.4-12.4); Monocytes # (auto) 0.79 K/uL (0.11-0.59); Neutrophils # (auto) 4.24 K/uL (1.40-6.50); Neutrophils % (auto) 64.1 %; Platelet Count 91 K/uL (130-400); RDW Coefficient of Variation 20.8 % (11.5-14.5); White Blood Count 6.61 K/ul (4.8-10.8)
[2023-09-01 06:10] LABS: Albumin Globulin Ratio 0.8 (0.9-2); Albumin Level 1.8 gm/dl (3.4-5.0); BUN Creatinine Ratio 60.7 (10-20); Bilirubin,Total 0.9 mg/dl (0.2-1.0); Calcium 7.2 mg/dl (8.6-10.3); Creatinine Clr Calc Pharmacy 145.8 ml/min; Est GFR (African American) 136.6 ml/min; Est GFR (Non-African American) 117.8 ml/min; Globulin 2.4 gm/dl (2.5-4.0); Potassium 3.3 mmol/L (3.5-5.1); Total Protein 4.2 gm/dl (6.0-8.3)
[2023-09-01 06:20] LABS: Prothrombin Time 11.4 Seconds (9.0-12.0)
[2023-09-01 06:41] LABS: Anisocytosis Present; Polychromasia 1+
--- NOTE | 2023-09-01 07:21 | Hospitalist Progress Note ---
"Date of Service September 01, 2023 Assessment & Plan (1) Comfort measures only status: (2) Urinary tract infection: (3) Lethargy: (4) Acute metabolic encephalopathy: (5) Acute hypoxic respiratory failure: (6) HFrEF (heart failure with reduced ejection fraction): (7) Elevated troponin: (8) Acute kidney injury: (9) Hyperkalemia: (10) Hypoglycemia: (11) Asthma: (12) GERD (gastroesophageal reflux disease): (13) Insomnia: (14) Coronary artery disease: (15) Hypomagnesemia: (16) Anemia: (17) Depression: (18) Elevated bilirubin: (19) Thrombocytopenia: Plan 73 yo female with PMHx of ventricular tachycardia, liver abscess, CAD, IBS, RA, and HLD presenting with SOB and lethargy. Upon admission, patient appeared to be actively dying with severe multifactorial acute on chronic illness. After extensive discussion with family she was transitioned to comfort care 08/10. A few days after she remarkably awakened and was AOx3. is aware that her change of status is a remarkable surprise but that she still does have a very significant illness burden. She was changed from comfort measures only to cautious ongoing management of comorbidities 08/20. Now pending SNF placement. Diet ordered for comfort feeding and permission aspiration allowed as she is at high aspiration risk. Discussed aspiration risk versus nutritionlet know it would be okay to bring in food from home. Elevated Transaminases | Elevated Bilirubin | Thrombocytopenia | Edema - Likely 2/2 extensive biliary/hepatic disease burden including liver abscesses and biliary stenting Most likely with underlying liver disease (clinical picture concerning for cirrhosis vs type 4 RTA); liver bx has been contemplated for last several admissions, but at this time patient and do not feel she is well enough to proceed with liver bx, explained to patient & family that targeted treatment for her illness is limited without a specific tissue diagnosis. - CT A/P: small bilateral pleural effusions and a small amount of ascites, mod erate to severe body wall edema - Patient and family electing to postpone liver biopsy for diagnosis to later date despite risks/benefits discussion - Lasix 40mg IV (08/24) which did improve edema, negative fluid balance, consider additional dose if worsening. - 08/27: Family requesting to proceed with [address] Liver (recommended by GI), but unable to proceed with imaging given lack of IV access. - 08/31: four-phase CT scan of liver performed - The liver is normal in size and slightly heterogeneous in attenuation. No enhancing hepatic mass lesion is seen. Anemia, chronic - Hgb in 7s throughout hospitalization. Recent asymptomatic dips into 6s. S/p 1 unit PRBC (08/21) and 1 unit (08/23). No signs of active bleeding. HDS. - No evidence of acute blood loss; etiology likely multifactorial; malnutrition, iron deficiency, B12 deficiency, hemodilution, anemia of chronic disease - B12 and Iron wnl, but on lower end of normal, could consider supplementation - 08/27: Hgb < 7, patient requesting to proceed w/ transfusion but IV team remains unable to obtain access despite attempts via US guidance, patient's vasculature unable to support additional intravenous access at this time, continue ongoing goals of care discussions with family. Patient currently asymptomatic from anemia. - Central line placed overnight 08/28, transfused 1 u. PRBC for Hgb 6, improved to 9.1. LE edema improved with 40 mg IV Lasix. - Fecal blood occult negative. - Hemoglobin stable at this time - Will place order for hematology consult for persistent anemia Acute metabolic encephalopathy - Resolved - initially altered in the setting of urosepsis and hepatic encephalopathy. Now AOx4. - CT head negative - Elevated ammonia levels on presentation; now resolved Hypoglycemia - BS 66 on admission; no documented h/o of DM. - Patient unable to maintain blood sugar levels in the normal range. - Likely due to nutrition status - Glucose levels remain low, patient continuing to improve PO intake, otherwise asymptomatic Urosepsis - Resolved - presented with urinary symptoms. - UA grossly infected. ESBL on urine cx. Blood cx negative. - treated with ceftriaxone and zosyn, completed - no further abx indicated at this time. Elevated troponin | CAD | HFrEF - Resolved - peaked, likely demand in the setting of acute illness/AMS - HFrEF appears stable (Echo w/ EF 40-45% in 2020), CT chest w/ pulmonary edema/effusions Chronic Condition Management: - Insomnia: nortriptyline (holding to avoid sedation) - Hypothyroidism: levothyroxine - GERD: lansoprazole (no GERD sx, holding) - Depression: lexapro - Asthma: singulair, albuterol PRN (no wheezing) FEN: Low Na, Pureed Code status: DNR/DNI DVT ppx: Lovenox Dispo:med surg, was accepted at [facility], plan to discharge today though case management states that auth needs to be renewed and [facility] is closed Admission and Anticipated Discharge Date Admission Date: August 07, 2023 Supervising Physician Co-Signing Physician Notes I personally examined the patient and verified all corbett points of history and exam, discussed case, and agree with decision making with Dr Fletcher no new issues. Had some back pain, pain medsresting. does most of the talking today. Vitals noted, in general she is awake, but easily fatigued and asleep, no distress. Breathing unlabored no accessory muscle use good effort. Skin shows no rashes no pallor or icterus. Neuro without focal deficits. Anemianow status post a total of 4 units transfusionunclear source. Might all be poor hematopoiesisask hematology for thoughts given that she is likely to go to skilled soon. Possible underlying liver diseaseliver CT nondescript. Still suspect a biopsy could be helpful. Pending SNF. DVT prophylaxisLovenox otherwise as above Subjective Patient seen and examined at bedside. No acute events reported overnight. She notes back pain- this worsened after laying in the CT machine- just had pain medication. She denies any chest pain or shortness of breath. Review of Systems Review of Systems: As per above Physical Exam Constitutional: WD/WN, vitals as above Eyes: + anicteric sclerae; no conjunctival abn ormality ENMT: Ears: no external ear abnormality Nose: no external nose abnormality Moist mucous membranes Respiratory: normal respiratory effort; no respiratory distress Good aeration bilaterally Cardiovascular: Rate/Rhythm: regular rate and regular rhythm Gastrointestinal (Abdomen): Abdomen soft, nontender, nondistended Skin: no rashes, warm and dry Psychiatric: A+Ox3, euthymic affect Results & Data Results & Data Vital Signs (Past 12 Hours) Vital Signs Temp Pulse Resp BP Pulse Ox O2 Del Method 08/31/23 21:50 Room Air 08/31/23 19:25 36.6 C 98 H 18 108/67 96 Room Air Resident Activity Tracking Resident Involvement: Resident Care Provided Care Provided: Adult Hospital Medicine (2) Urinary tract infection Hematuria presence: without hematuria Urinary tract infection type: site unspecified Qualified Code(s): N39.0 - Urinary tract infection, site not specified"
[2023-09-01] MEDS: HYDROmorphone HCL 2 MG TAB PO PRN ×2 (09:14→20:14)
[2023-09-01] MEDS: ENOXAPARIN INJ 40 MG/0.4 ML SYR SQ SCH (09:15)
[2023-09-01] MEDS: ESCITALOPRAM OXALATE 10 MG TAB PO SCH (09:15)
[2023-09-01] MEDS ORDERED: POTASSIUM CHLORIDE 20 MEQ/15 ML UDC PO STA (14:15)
--- NOTE | 2023-09-01 18:15 | Billing Data ---
Date of Service September 01, 2023 Coding Level of Care Code 47971 SUB INP/OBS CARE
[2023-09-02] MEDS: LEVOTHYROXINE SODIUM 75 MCG TABLET PO SCH (05:18)
[2023-09-02] MEDS: ENOXAPARIN INJ 40 MG/0.4 ML SYR SQ SCH (07:41)
[2023-09-02] MEDS: ESCITALOPRAM OXALATE 10 MG TAB PO SCH (07:41)
--- NOTE | 2023-09-02 09:35 | Oncology Consultation ---
Date of Consultation September 02, 2023 History of Present Illness Attending Physician: Arun Christianson DO Allergies Allergy/AdvReac Type Severity Reaction Status Date / Time doxycycline Allergy Severe Anaphylaxis Verified 08/08/23 10:08 bacitracin Allergy Intermediate Hives, Verified 03/24/23 10:51 blisters clavulanic acid Allergy Intermediate Hives Verified 03/24/23 10:51 diphenhydramine Allergy Intermediate Hives Verified 03/24/23 10:51 iodine Allergy Intermediate Hives Verified 03/24/23 10:51 ketorolac Allergy Intermediate Hives Verified 03/24/23 10:51 meclofenamic acid Allergy Intermediate Hives Verified 03/24/23 10:51 neomycin Allergy Intermediate Hives, Verified 03/24/23 10:51 blisters NSAIDS (Non-Steroidal Allergy Intermediate Hives Verified 03/24/23 10:51 Anti-Inflamma (tolerates Celebrex) oxycodone Allergy Intermediate Hives Verified 03/24/23 10:51 (tolerates Vicodin) polymyxin B Allergy Intermediate Hives, Verified 03/24/23 10:51 blisters quinine Allergy Intermediate Hives Verified 03/24/23 10:51 Sulfa (Sulfonamide Allergy Intermediate Hives Verified 03/24/23 10:51 Antibiotics) tramadol Allergy Intermediate Hives, Verified 03/24/23 10:51 itching adhesive Allergy Mild Rash Verified 03/24/23 10:51 hydroxychloroquine Allergy Mild Rash Verified 03/24/23 10:51 latex Allergy Mild Rash Verified 03/24/23 10:51 methotrexate Allergy Mild Rash Verified 03/24/23 10:51 povidone-iodine Allergy Mild Rash Verified 03/24/23 10:51 meperidine AdvReac Intermediate N/V Verified 03/24/23 10:51 prednisone AdvReac Intermediate Made Verified 03/24/23 10:51 "bones soft" aspirin AdvReac Mild N/V Verified 03/24/23 10:51 Home Medications Medication Instructions Recorded Confirmed Type nitroglycerin 0.4 mg sublingual 0.4 mg sublingual Q5M PRN chest 02/22/21 08/07/23 Rx tablet (Nitrostat) pain #25 tabs calcium carbonate 600 mg-vitamin 1 tab PO QAM 08/24/21 08/07/23 History D3 5 mcg (200 unit) tablet acetaminophen 650 mg 650 mg PO Q8H Pain 12/04/21 08/07/23 History tablet,extended release (Tylenol Arthritis Pain) folic acid 1 mg tablet 1 mg PO QAM 05/24/22 08/07/23 History levothyroxine 75 mcg tablet 75 mcg PO QAM #90 tabs 02/25/23 08/07/23 Rx escitalopram oxalate 20 mg tablet 20 mg PO QAM #90 tabs 02/26/23 08/07/23 Rx (Lexapro) aspirin 81 mg tablet,delayed 81 mg PO QAM #90 tabs 05/20/23 08/07/23 Rx release lansoprazole 15 mg capsule,delayed 15 mg PO QAM #90 caps 05/20/23 08/07/23 Rx release (Prevacid 24Hr) albuterol sulfate 90 mcg/actuation 1 - 2 puff inhalation .Q 4-6 HRS 06/17/23 08/07/23 History aerosol inhaler (Ventolin HFA) PRN shortness of breath or wheezing menthol 0.44 %-zinc oxide 20.6 % 1 applic topical QID PRN skin 07/10/23 08/07/23 Rx topical ointment (Calmoseptine) irritation #113 grams montelukast 10 mg tablet 10 mg PO QAM #90 tabs 07/10/23 08/07/23 Rx (Singulair) nortriptyline 25 mg capsule 25 mg PO HS #90 caps 07/10/23 08/07/23 Rx polyethylene glycol 3350 17 17 g PO DAILY PRN constipation 07/10/23 08/07/23 Rx gram/dose oral powder (Miralax) #119 grams carvedilol 6.25 mg tablet 6.25 mg PO BIDM #180 tabs 07/31/23 08/07/23 Rx potassium chloride 10 mEq 10 meq PO QAM 08/07/23 08/07/23 History tablet,extended release Patient History Medical History (Updated 08/16/23 @ 09:34 by Hayley Webster MD) V-tach Liver abscess History of COVID-19 DX 05/2021 (NO SYMPTOMS>PT STATES WAS A FALSE POSITIVE) Anxiety and depression Cholecystitis with perforation of gallbladder Ischemic cardiomyopathy Coronary artery disease Cardiac catheterization -02/22/2021:Impression: 1. Severe CAD involving ostial/proximal LAD (100%), filling via left to left and right to left collaterals. 2. Otherwise nonobstructive CAD involving the mid circumflex. 3. No aortic stenosis. 4. Normal left-sided filling pressure. Anemia Hx of fracture Right shoulder AC joint fracture (10/2020) due to traumatic event > healing without surgical intervention Insomnia Lumbar spinal stenosis Steroid-induced osteoporosis IBS (irritable bowel syndrome) GERD (gastroesophageal reflux disease) Hypothyroidism History of right breast cancer s/p lumpectomy (1969)- no chemo or xrt Rheumatoid arthritis Hyperlipidemia Lumbar facet joint syndrome Sacroiliitis Allergic rhinitis Asthma Hypertension Surgical History History of biopsy Nausea and vomiting after administration of anesthetic agent History of cardiac cath NO - [facility] Dr. Arthur History of ERCP WITH STENT (NOT PRESENT) H/O cataract extraction R/L eye S/P ORIF (open reduction internal fixation) fracture Left ankle H/O arthroscopy of shoulder L shoulder S/p reverse total shoulder arthroplasty Left reverse TSA (02/26/19): Grade view 2, MAC#3, ETT 7 + PNB at [facility] (scope patch used) History of tonsillectomy History of foot surgery R/L History of arthroscopy of left knee History of right knee joint replacement History of total abdominal hysterectomy and bilateral salpingo-oophorectomy d/t endometriosis History of lumpectomy of right breast History of breast biopsy Family History Grandmother (Paternal) Family history of diabetes mellitus Grandmother (Maternal) Family history of diabetes mellitus Father Coronary heart disease Alzheimer disease Myocardial infarction Osteoarthritis COPD (chronic obstructive pulmonary disease) Lung disease Mother Myocardial infarction COPD (chronic obstructive pulmonary disease) Other No family history of adverse response to anesthesia Denies family history of Ovarian cancer Prostate cancer Breast cancer Colorectal cancer Social History Smoking Status: Never smoker Second Hand Exposure: Yes; Do You Dip or Chew Tobacco: No; Hx Alcohol Use: No Hx Substance Use: No Preferred Language: Tajik Communication Ability: Effective Visual Impairment: No Limitations Hearing Ability: Normal Obgyn Nurse Required: No Beliefs That Will Affect Care: None marital status: Current Living Situation: Spouse and Family Current Living Situation Comment: Home with family current occupational status: retired How many Children do You have: 2 Feels Safe at Home: Yes Childhood Exposure to Second-Hand Smoke: Yes Diet: regular Diet Comment: regular caffeine: Yes (coffee) during the past year weight has: remained stable Dental Care, Regularly: No Physical Activity Frequency: Daily Physical Activity Frequency Comment: walking indoors Seatbelt Use: always Sunscreen Use: No Assistive Devices: Bedside Commode, Scooter/Electric Scooter and Wheelchair Results & Data Vital Signs (Past 12 Hours) Vital Signs Temp Pulse Resp BP Pulse Ox O2 Del Method 09/02/23 08:36 36.5 C 94 H 16 143/80 H 96 Room Air 09/02/23 07:56 Room Air
[2023-09-02] MEDS: HYDROmorphone HCL 2 MG TAB PO PRN (11:05)
[2023-09-02 11:43] LABS: BUN Creatinine Ratio 55.2 (10-20); Calcium 7.3 mg/dl (8.6-10.3); Creatinine Clr Calc Pharmacy 140.7 ml/min; Est GFR (Non-African American) 116.5 ml/min; Potassium 4.1 mmol/L (3.5-5.1)
[2023-09-02 11:53] LABS: Reticulocyte % 3.3 % (0.5-2.0); Reticulocytes # 0.07 10^6/uL (0.02-0.10)
[2023-09-02 11:54] LABS: Hematocrit (blood only) 24.1 % (37.0-47.0); Hemoglobin 7.6 g/dl (12.0-16.0); Mean Corpuscular Hemoglobin 34.4 pg (25.0-34.0); Mean Corpuscular Hgb Conc 31.5 g/dL (32.0-36.0); Mean Platelet Volume 11.9 fL (9.4-12.4); Platelet Count 107 K/uL (130-400); RDW Coefficient of Variation 19.6 % (11.5-14.5); Red Blood Count 2.21 M/uL (4.20-5.40)
[2023-09-02 11:55] LABS: Basophils # (auto) 0.02 K/uL (0.00-0.20); Basophils % (auto) 0.3 %; Eosinophils # (auto) 0.12 K/uL (0.00-0.50); Eosinophils % (auto) 1.7 %; Immature Granulocytes # (auto) 0.03 K/uL (0.01-0.20); Immature Granulocytes % (auto) 0.4 %; Lymphocytes # (auto) 1.01 K/uL (1.20-3.40); Lymphocytes % (auto) 14.4 %; Macrocytosis Present; Monocytes # (auto) 0.73 K/uL (0.11-0.59); Monocytes % (auto) 10.4 %; Neutrophils # (auto) 5.09 K/uL (1.40-6.50); Neutrophils % (auto) 72.8 %; Polychromasia 1+; Tear Drop Cells 1+
--- NOTE | 2023-09-02 17:48 | Discharge Summary ---
Date of Service September 02, 2023 Admission HPI Per Admitting Provider Pt is 73 yo F with PMH HFrEF (EF 40-45%), CAD, ischemic cardiomyopathy, HTN, RA, hypothyroidism, GERD, anemia, anxiety, insomnia, asthma presenting with lethargy. at bedside provides supplementary history as pt is not adequate historian. Pt was hospitalized from mid 06/17 to 07/02 at [facility] for sepsis 2/2 C difficile colitis and acute renal failure. She was discharged home with home health services afterward. Pt reports feeling generally unwell since her discharge from hospital and progressive fatigue. Particularly over the last 3 days she has become considerably more lethargic, opting to sleep for much of the day and having little to no appetite. Denies fevers but has had chills and dysuria and urinary frequency with cloudy discoloration of urine. She also reports 12 lbs of unintentional weight gain over the past month and some mild but progressive dyspnea. Reports back pain but nothing beyond her baseline lumbar back pain. Pt has unfortunately been largely bedbound since her discharge and feels he cannot take care of her anymore. He also states her speech has been less comprehensible over the past few days but only mildly so. Pt arrived to ER with borderline BP 92/56, apparent hypoxia prompting 4L NC placement which was later removed by as she did not need it anymore. Initial evaluation significant for Hgb 9.6 (baseline), MCV 106, Plts 65, K 6.1, Cr 1.28, glucose 66 -> 193, Mg 1.5, AST 51, TB 1.5, DB 0.8, ALP 298, troponin 21.6, PCT 5.5. Positive UA, negative head CT, VBG. CXR demonstrates basilar opacities suggesting congestion/edema. ER interventions include calcium gluconate 1g, insulin 5u, dextrose 50% 1 ampule, ceftriaxone 2g IV. On my evaluation, pt denies any new symptoms. Admission Exam Per Admitting Provider General: tired-appearing, no acute distress HEENT: PERRL, EOMI, conjunctivae clear without injection, anicteric sclerae, moist mucous membranes, clear oropharynx without exudate or erythema Neck: supple, trachea midline, no thyromegaly, no JVD, no cervical lymphadenopathy CV: RRR, normal S1 and S2, no murmurs Resp: Diffuse bibasilar crackles, coarse upper lung sounds, no increased work of breathing, no wheezes Abd: Soft, some suprapubic tenderness, no CVA tenderness, nondistended, no guarding or rebound, no hepatosplenomegaly MSK: Normal bulk of all four extremities Neuro: AOx3, no focal motor or sensory deficits Skin: no rashes or lesions, warm and dry Ext: trace LE peripheral edema or erythema, capillary refill <2s in all four extremities, 2+ LE peripheral pulses b/l Principal Diagnosis Urosepsis, hepatic enceophalopathy Discharge Exam Constitutional WD/WN, vitals as above Eyes + anicteric sclerae; no conjunctival abnormality ENMT Ears: no external ear abnormality Nose: no external nose abnormality Respiratory normal respiratory effort; no respiratory distress Cardiovascular Rate/Rhythm: regular rate and regular rhythm Gastrointestinal (Abdomen) Percussion/Palpation: abdomen soft; abdomen nontender and no guarding Skin no rashes, warm and dry Psychiatric A+Ox3, euthymic affect Discharge Data Allergies Allergy/AdvReac Type Severity Reaction Status Date / Time doxycycline Allergy Severe Anaphylaxis Verified 08/08/23 10:08 bacitracin Allergy Intermediate Hives, Verified 03/24/23 10:51 blisters clavulanic acid Allergy Intermediate Hives Verified 03/24/23 10:51 diphenhydramine Allergy Intermediate Hives Verified 03/24/23 10:51 iodine Allergy Intermediate Hives Verified 03/24/23 10:51 ketorolac Allergy Intermediate Hives Verified 03/24/23 10:51 meclofenamic acid Allergy Intermediate Hives Verified 03/24/23 10:51 neomycin Allergy Intermediate Hives, Verified 03/24/23 10:51 blisters NSAIDS (Non-Steroidal Allergy Intermediate Hives Verified 03/24/23 10:51 Anti-Inflamma (tolerates Celebrex) oxycodone Allergy Intermediate Hives Verified 03/24/23 10:51 (tolerates Vicodin) polymyxin B Allergy Intermediate Hives, Verified 03/24/23 10:51 blisters quinine Allergy Intermediate Hives Verified 03/24/23 10:51 Sulfa (Sulfonamide Allergy Intermediate Hives Verified 03/24/23 10:51 Antibiotics) tramadol Allergy Intermediate Hives, Verified 03/24/23 10:51 itching adhesive Allergy Mild Rash Verified 03/24/23 10:51 hydroxychloroquine Allergy Mild Rash Verified 03/24/23 10:51 latex Allergy Mild Rash Verified 03/24/23 10:51 methotrexate Allergy Mild Rash Verified 03/24/23 10:51 povidone-iodine Allergy Mild Rash Verified 03/24/23 10:51 meperidine AdvReac Intermediate N/V Verified 03/24/23 10:51 prednisone AdvReac Intermediate Made Verified 03/24/23 10:51 "bones soft" aspirin AdvReac Mild N/V Verified 03/24/23 10:51 Consultations 08/07/23 20:57 ED Decision to Admit Stat 08/08/23 17:50 Consult Nephrology Routine 08/27/23 12:20 Consult Economic Specialist Routine 09/02/23 07:00 Consult Hematology Routine Ordered Studies 08/07/23 19:10 CT head/brain wo con Stat 08/09/23 04:44 CT head/brain wo con Stat 08/09/23 05:00 CT chest diagnostic wo con Urgent 08/09/23 08:15 CT abd pelvis wo con Urgent 08/13/23 13:30 FL video swallow Routine 08/24/23 10:53 CT Abd and Pelvis [CT abd pelvis wo con] Stat 08/29/23 14:00 CT liver wo/w con Routine Chest X-Ray 08/07/23 18:59 SINGLE VIEW CHEST CLINICAL HISTORY: Sepsis. FINDINGS: An AP, portable, upright chest radiograph is compared to study dated 06/22/2023 and correlated with chest CT dated 07/01/2023. The cardiomediastinal silhouette is top normal for projection. Chronic interstitial thickening is similar to previous. Suspect trace pleural effusions. There is bibasilar atelectasis. No airspace consolidation is seen typical for pneumonia. No pneumothorax is seen. The skeletal structures are osteopenic. There are chronic/healed bilateral rib fractures. 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 IMPRESSION: 1. Suspect trace pleural effusions. 2. There is no airspace consolidation typical for pneumonia. ACT 112: Negative or not required by law. Electronically signed by: Samm Ferrer M.D. 08/07/2023 9:[address] 08/07/23 19:10 Exam(s): CT HEAD Without Contrast EXAM: CT Head Without Intravenous Contrast CLINICAL HISTORY: Reason for exam: lethargic. TECHNIQUE: Axial computed tomography images of the head/brain without intravenous contrast. CTDI is 37.01 mGy and DLP is 546.36 mGy-cm. Automated exposure control was utilized for the study. A dose lowering technique was utilized adhering to the principles of ALARA. COMPARISON: No relevant prior studies available. FINDINGS: No acute intracranial hemorrhage. No midline shift or mass effect. The territorial cruz-white matter differentiation is maintained throughout. Age-related cerebral volume loss. Periventricular and subcortical white matter hypoattenuation, consistent with chronic microangiopathy. The visualized orbits appear grossly unremarkable. The calvarium is intact. The visualized paranasal sinuses and mastoid air cells are grossly clear. IMPRESSION: No acute intracranial hemorrhage, midline shift, or mass effect. Electronically signed by: Fernando South MD 08/07/23 20:31 PM KUB X-Ray 08/08/23 18:24 KUB CLINICAL HISTORY: Confirmation of NGT placement COMPARISON STUDY: CT of the abdomen and pelvis June 19, 2023. KUB June 21, 2023. FINDINGS: The tip of the nasogastric tube is within the body of the stomach. The bowel gas pattern is normal. No urinary calculi identified. IMPRESSION: 1. Tip of nasogastric tube within the body of the stomach. 2. No radiographic evidence for a bowel obstruction. ACT 112: Negative or not required by law. Electronically signed by: Rodney Gilbert M.D. 08/08/2023 6:52 PM Chest X-Ray 08/09/23 04:06 XR chest 1V portable HISTORY: c/f infection COMPARISON: Chest 08/07/2023. FINDINGS: There are low lung volumes. No pneumothorax. Nasogastric tube terminates in the stomach. Bilateral total shoulder arthroplasties are noted. The heart is mildly enlarged. There is mild central pulmonary vascular congestion without overt edema. Small right pleural effusion. Bibasilar densities favor subsegmental atelectasis. A hiatal hernia is noted. IMPRESSION: 1. Cardiomegaly and mild congestive change. 2. Small right pleural effusion. 3. Bibasilar linear densities favor subsegmental atelectasis.. 4. Nasogastric tube terminates in the stomach. ACT 112: Negative or not required by law. Electronically signed by: Azael Pinto M.D. 08/09/2023 8:[address] 08/09/23 04:[address] DOSE: HISTORY: Confusion. r/o infarct TECHNIQUE: Multiaxial CT images of the head were performed without the use of intravenous contrast. Automated exposure control was utilized for this study. A dose lowering technique was utilized adhering to the principles of ALARA. Comparison: Head CT 08/07/2023. Findings: Metallic artifact from the patient's overlying monitoring leads. The paranasal sinuses and mastoid air cells are clear. The calvarium and skull base are intact. There is no mass, hematoma, midline shift, acute infarct. White matter hypodensity is nonspecific but suggestive of microvascular ischemic change. The ventricles and sulci demonstrate mild age-related involutional changes. Impression: No acute intracranial abnormality. ACT 112: Negative or not required by law. Electronically signed by: Azael Pinto M.D. 08/09/2023 8:[address] 08/09/23 05:00 CT chest diagnostic wo con CT DOSE: HISTORY: Confusion. Assess for aspiration pneumonia. TECHNIQUE: Multiaxial CT images of the chest were performed without contrast. A dose lowering technique was utilized adhering to the principles of ALARA. COMPARISON: Chest CTA 07/01/2023. FINDINGS: Mucoid material seen within the trachea and mainstem bronchi. There is partial opacification of the bilateral lower lobe bronchi. Nasogastric tube terminates in the stomach. No pneumothorax. Small bilateral pleural effusions. Interlobular septal thickening consistent with pulmonary edema. There are additional scattered patchy groundglass airspace opacities within the lungs most pronounced on the right. This could be due to the pulmonary edema or a superimposed pneumonia. Consolidation within the bilateral lower lobes posteriorly are nonspecific but could represent atelectasis or pneumonia. There are bilateral total shoulder arthroplasties. There is respiratory motion artifact. Old, healed bilateral rib fractures are noted. Old sternal fracture. Nonunited left scapular fracture again noted. Chronic compression fractures within the thoracic and lumbar spine again noted. No acute fractures. Mild body wall edema. Suspect right hilar lymphadenopathy. This may be reactive. No add itional or left hilar lymphadenopathy. The abdominal structures will be reported on the same day abdomen and pelvis CT. The heart remains mildly enlarged. No pericardial effusion. Calcified plaque within the coronary arteries. IMPRESSION: 1. Nasogastric tube terminates in the stomach. 2. Pulmonary edema and small bilateral pleural effusions. 3. Partial mucoid opacification of the trachea and bronchi with bibasilar lower lobe densities. This may represent atelectasis or pneumonia. 4. Additional patchy groundglass airspace opacities within the lungs may be due to the pulmonary edema or a superimposed pneumonia. 5. Additional findings as described above. ACT 112: Negative or not required by law. Electronically signed by: Azael Pinto M.D. 08/09/2023 9:01 AM Abdomen/Pelvis CT 08/09/23 08:[address] WITHOUT CONTRAST CT DOSE: 2742.25 mGy.cm HISTORY: Confusion. Fever. TECHNIQUE: Multiaxial CT images of the abdomen and pelvis were performed without contrast. A dose lowering technique was utilized adhering to the principles of ALARA. COMPARISON STUDY: Abdomen and pelvis CT 06/19/2023. FINDINGS: Small bilateral pleural effusions and bibasilar densities are better appreciated on the same day chest CT. The heart remains mildly enlarged. There is mild interstitial pulmonary edema. A nasogastric tube terminates in the distal stomach. No pneumoperitoneum. No pneumatosis. Old compression deformities again noted within the lumbar spine. Moderate body wall edema is noted. This has slightly progressed. A few hypodense lesions within the liver remain unchanged and favor cysts. The unenhanced spleen, adrenal glands, pancreas are unremarkable. No renal stones or hydronephrosis. No retroperitoneal lymphadenopathy. Normal caliber abdominal aorta. The gallbladder appears contracted. Exophytic prominence again noted within the interpolar left kidney without definite lesion. This difficult to assess on this noncontrast study. This remains unchanged. Small amount of ascites. The bladder is decompressed by Lord catheter. Prior hysterectomy. Suboptimal evaluation for bowel pathology due to the lack of intravenous and oral contrast. However, no dilated loops of bowel to suggest an obstruction. Fluid-filled small and large bowel seen throughout the abdomen. This suggests a diarrheal illness/gastroenteritis. No d efinite bowel wall thickening. IMPRESSION: 1. Fluid-filled nondilated loops of large and small bowel seen throughout the abdomen. This favors a gastroenteritis/diarrheal illness. 2. Colonic diverticulosis. No evidence for acute diverticulitis. 3. Moderate ascites and moderate body wall edema. 4. Pulmonary edema and small bilateral pleural effusions. 5. Bibasilar densities are better present on the same day chest CT. 6. The nasogastric tube terminates in the distal stomach. 7. Additional findings as described above. ACT 112: Negative or not required by law. Electronically signed by: Azael Pinto M.D. 08/09/2023 9:07 AM Videofluoroscopic Swallow 08/13/23 13:30 MODIFIED BARIUM SWALLOW CLINICAL HISTORY: r/o aspiration COMPARISON STUDY: None. FLUOROSCOPY TIME: 0.57 seconds. Ka, r: 1.84 mGy. TECHNIQUE: A modified barium swallow was performed in conjunction with Speech Pathology. The patient ingested varying consistencies of barium containing material. Video fluoroscopy was performed. FINDINGS: There were multiple episodes of tracheal aspiration with swallows of thin liquids and nectar thick liquids. No aspiration was noted with pudding consistency. Mild residuals were noted with multiple consistencies. IMPRESSION: 1. Multiple episodes of tracheal aspiration with thin liquids and nectar thick liquids. 2. Full recommendations by Speech pathology to follow. ACT 112: Negative or not required by law. Electronically signed by: Rodney Gilbert M.D. 08/13/2023 3:55 PM Abdomen/Pelvis CT 08/24/23 10:[address] WITHOUT CONTRAST CT DOSE: 1204.75 mGy.cm HISTORY: Anemia. Back pain. Assess for retroperitoneal bleed. TECHNIQUE: Multiaxial CT images of the abdomen and pelvis were performed without contrast. A dose lowering technique was utilized adhering to the principles of ALARA. COMPARISON STUDY: Abdomen and pelvis CT 08/09/2023. FINDINGS: Levoscoliosis and chronic compression deformities again noted within the thoracolumbar spine. There is most pronounced at T12 which demonstrates a severe compression deformity with 4 mm of retropulsion resulting in [id number] central canal narrowing. This remains unchanged. Small bilateral pleural effusions and bilateral lower lobe densities persist. This favors compressive atelectasis from the pleural effusions. No pneumoperitoneum. No pneumatosis. There are old, healed bilateral rib fractures. Soft tissue gas within the left upper arm which may be due to recent intervention/intravenous line placement. Hypodense blood pool consistent with underlying anemia. Moderate to severe body wall edema most pronounced within the pelvis. This has slightly progressed. Stable hypodense lesions within the left hepatic lobe. These favor cysts. The unenhanced spleen, adrenal glands, and gallbladder are unremarkable. No renal stones or hydronephrosis. Questionable mild peripancreatic edema is likely due to the patient's diffuse edematous state. An acute pancreatitis is considered less likely but not entirely excluded. No retroperitoneal hematoma or lymphadenopathy. Normal caliber abdominal aorta. No pelvic lymphadenopathy. Prior hysterectomy. The bladder is decompressed by Lord catheter. This may account for the small amount of gas within the bladder lumen. There is a small amount of ascites again noted. This is similar to the prior study. Suboptimal evaluation for bowel pathology due to the lack of intravenous and oral contrast. However, there is no definite bowel wall thickening or obstruction. Colonic diverticulosis. No evidence for acute diverticulitis. Fluid-filled nondilated loops of large or small bowel seen throughout the abdomen. IMPRESSION: 1. No retroperitoneal hematoma identified. 2. Suboptimal evaluation for bowel pathology due to the lack of intravenous and oral contrast. However, there is no definite bowel wall thickening or obstruction. 3. Colonic diverticulosis. No evidence for acute diverticulitis. 4. Small bilateral pleural effusions and a small amount of ascites, unchanged. 5. Moderate to severe body wall edema has slightly progressed. 6. Fluid-filled nondilated loops of large and small bowel seen throughout the abdomen. This could represent a mild diarrheal illness/gastroenteritis. This is similar to the prior study. 7. Questionable mild peripancreatic edema. This is likely due to the patient's diffuse edematous state. Recommend correlation with pancreatic enzymes to exclude the possibility of a mild acute pancreatitis. 8. Additional findings as described above. ACT 112: Negative or not required by law. Electronically signed by: Azael Pinto M.D. 08/24/2023 11:52 AM Chest X-Ray 08/28/23 01:04 XR chest 1V portable CLINICAL HISTORY: post line placment- eval line/pthx COMPARISON STUDY: Chest radiograph and chest CT August 09, 2023. FINDINGS: Bilateral shoulder arthroplasties are incidentally noted. There is no pneumothorax following placement of a right internal jugular central venous catheter. The tip projects over the suprahepatic IVC. The catheter could be withdrawn 5 cm. There are small bilateral pleural effusions. No radiographic evidence for pulmonary edema. Left basilar opacity favors atelectasis. Cardiomediastinal silhouette is stable. IMPRESSION: 1. No pneumothorax following placement of a right internal jugular central venous catheter. Tip projects over the suprahepatic IVC. The catheter could be withdrawn 5 cm. 2. Small bilateral pleural effusions. Left basilar opacity suggestive of atelectasis. ACT 112: Negative or not required by law. Electronically signed by: Rodney Gilbert M.D. 08/28/2023 7:[address] 08/29/23 14:00 CT SCAN OF THE ABDOMEN COMBO LIVER PROTOCOL CLINICAL HISTORY: Elevated hepatic transaminases. COMPARISON STUDY: Abdominal CT dated 08/24/2023. TECHNIQUE: Informed follow the IV administration of 90 cc of Optiray 320, CT scan of the abdomen is performed from the lung bases to the pelvic inlet using the liver protocol. Images are reviewed in the axial, sagittal, and coronal planes. IV contrast was administered without complication. A dose lowering technique was utilized adhering to the principles of ALARA. The examination is degraded by motion artifact. There is also streak artifact from the left arm which could not be elevated above the abdomen. CT DOSE: 2815.01 mGy.cm FINDINGS: Lung bases: The heart is normal in size and without pericardial effusion. The coronary arteries are densely calcified. There is diminished attenuation of the cardiac blood pool as compared to myocardium suggesting anemia. There are small pleural effusions with dependent atelectasis. There is a small hiatal hernia. Liver: The contrast-enhanced liver is normal in size and slightly heterogeneous in attenuation. Question mild nodularity of the surface contour. There is no intrahepatic biliary ductal dilatation. Scattered hepatic cysts measuring up to 16 mm. Additional subcentimeter hepatic hypodensities also likely represent cysts but are too small for definitive characterization. No enhancing hepatic lesion is identified. Hepatic and portal vasculature: Hepatic arterial anatomy is conventional. The hepatic veins, the portal veins, superior mesenteric vein, and the splenic vein are patent. Gallbladder: The gallbladder wall is mildly thickened and irregular. The gallbladder is not distended. This is similar to prior studies and may be related to prior cholecystitis. Spleen: Normal in size and attenuation. 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 The pancreas is mildly atrophic and otherwise grossly unremarkable. Adrenal glands: Unremarkable. Kidneys: The contrast enhanced kidneys demonstrate mild cortical atrophy and are without hydronephrosis. No renal calculi are identified on the unenhanced series. The kidneys enhance symmetrically. A 1.8 cm cyst is seen in the left lower pole. Abdominal vasculature: The abdominal aorta is normal in course and caliber notin g moderate atherosclerotic calcification. Bowel: Imaged portions of the bowel show no evidence of obstruction. Mild wall thickening and edema suggestive wall of the colon and there is nonspecific focal thickening throughout the small bowel. Peritoneum: There is a small volume of perihepatic ascites. There is also free fluid in the right paracolic gutter. No intraperitoneal free air is seen. Lymphadenopathy: None. Skeletal structures: The skeletal structures are osteopenic. There is moderate to severe lumbosacral spondylosis. Thoracolumbar compression deformities are similar to previous. This includes a severe compression deformity of T12 with retropulsed fragments. No lytic or blastic lesions are seen. Soft tissues: There is body wall edema. IMPRESSION: 1. The liver is normal in size and slightly heterogeneous in attenuation. 2. No enhancing hepatic mass lesion is seen. 3. Small volume abdominal ascites. 4. There is mild wall thickening and edema suggested involving the right colon, as well as fold thickening of the small bowel loops. This could be related to hypoproteinemia/fluid overload. Correlate clinically for evidence of a nonspecific enterocolitis. 5. Small pleural effusions and body wall edema. 6. Additional findings as above. ACT 112: Negative or not required by law. Electronically signed by: Samm Ferrer M.D. 08/31/2023 7:33 PM Chest X-Ray 08/29/23 15:54 XR chest 1V portable HISTORY: 73 years-old Female Confirmation of line placement COMPARISON: Chest radiograph 08/28/2023 TECHNIQUE: AP view of the chest FINDINGS: Cardiac mediastinal and hilar silhouettes are within normal limits. No pneumothorax, pleural effusion or airspace consolidation. Dual-lumen right IJ central venous catheter distal tip projects over the right atrium. Bilateral shoulder arthroplasties. Bones appear grossly intact. IMPRESSION: 1. No acute processes of the chest. 2. Distal tip of right IJ central venous catheter projects over the right atrium. Again, this could be withdrawn approximately 5 cm. ACT 112: Negative or not required by law. The above report was generated using voice recognition software. It may contain grammatical, syntax or spelling errors. Electronically signed by: Greyson Merchant M.D. 08/29/2023 4:37 PM Chest X-Ray 08/30/23 17:35 XR chest 1V portable HISTORY: 73 years-old Female Right IJ central venous catheter placement status post placement of a right IJ central venous catheter COMPARISON: 08/29/2023 TECHNIQUE: AP view of the chest FINDINGS: FINDINGS: Cardiac mediastinal and hilar silhouettes are within normal limits. No pneumothorax, pleural effusion or airspace consolidation. Dual-lumen right IJ central venous catheter distal tip now projects over the expected location of the superior cavoatrial junction. Bilateral shoulder arthroplasties. Bones appear grossly intact. IMPRESSION: 1. No acute processes of the chest. 2. Distal tip of right IJ central venous catheter projects over the superior cavoatrial junction. ACT 112: Negative or not required by law. The above report was generated using voice recognition software. It may contain grammatical, syntax or spelling errors. Electronically signed by: Greyson Merchant M.D. 08/30/2023 6:15 PM Hospital Course (1) Comfort measures only status: (2) Urinary tract infection: (3) Lethargy: (4) Acute metabolic encephalopathy: (5) Acute hypoxic respiratory failure: (6) HFrEF (heart failure with reduced ejection fraction): (7) Elevated troponin: (8) Acute kidney injury: (9) Hyperkalemia: (10) Hypoglycemia: (11) Asthma: (12) GERD (gastroesophageal reflux disease): (13) Insomnia: (14) Coronary artery disease: (15) Hypomagnesemia: (16) Anemia: (17) Depression: (18) Elevated bilirubin: (19) Thrombocytopenia: Plan Tammy Caceres is a 73 year-old female with past medical history of ventricular tachycardia, liver abscess, CAD, IBS, RA, and HLD presenting with SOB and lethargy. Upon admission, patient appeared to be actively dying with severe multifactorial acute on chronic illness. After extensive discussion with family she was transitioned to comfort care 08/10. A few days after she remarkably awakened and was AOx3. is aware that her change of status is a remarkable surprise but that she still does have a very significant illness burden. She was changed from comfort measures only to cautious ongoing management of comorbidities 08/20. Diet ordered, permission aspiration allowed as she is at high aspiration risk. Discussed aspiration risk versus nutrition. However patient did have improvement of symptoms and was able to transition to SNF. Elevated Transaminases | Elevated Bilirubin | Thrombocytopenia | Edema -Likely 2/2 extensive biliary/hepatic disease burden including liver abscesses and biliary stenting Most likely with underlying liver disease (clinical picture concerning for cirrhosis vs type 4 RTA); liver bx has been contemplated for last several admissions, but at this time patient and do not feel she is well enough to proceed with liver bx, explained to patient & family that targeted treatment for her illness is limited without a specific tissue diagnosis. -CT A/P: small bilateral pleural effusions and a small amount of ascites, moderate to severe body wall edema -Patient and family electing to postpone liver biopsy for diagnosis to later date despite risks/benefits discussion -[address] Liver (recommended by GI), completed: the liver is normal in size and slightly heterogeneous in attenuation. No enhancing hepatic mass lesion is seen. -Would recommend following up with reconsideration for liver biopsy as outpatient -Continue for now with hydromorphone 2mg q4h PRN for pain Anemia, chronic -Hgb in 7s throughout hospitalization. Recent asymptomatic dips into 6s. Received three total units of PRBCs. No signs of active bleeding, FOB negative. -No evidence of acute blood loss; etiology likely multifactorial; malnutrition, iron deficiency, B12 deficiency, hemodilution, anemia of chronic disease -Recommend following up as outpatient with hematology for persistent anemia requiring blood transfusion -Would recommend checking a CBC twice weekly for the next few weeks to monitor hemoglobin -Next CBC should be completed on (09/04) Acute metabolic encephalopathy - Resolved -Initially altered in the setting of urosepsis and hepatic encephalopathy. Now AOx4. CT head negative. Elevated ammonia levels on presentation; resolved at time of discharge Hypoglycemia -BS 66 on admission; no documented h/o of DM. Glucose levels remain low, patient continuing to improve PO intake, otherwise asymptomatic Urosepsis - Resolved -Presented with urinary symptoms. UA grossly infected. ESBL on urine cx. Blood cx negative. Treated with ceftriaxone and zosyn, completed course. Elevated troponin | CAD | HFrEF - Resolved -Peaked, likely demand in the setting of acute illness/AMS. HFrEF appears stable (Echo w/ EF 40-45% in 2020), CT chest w/ pulmonary edema/effusions Chronic Condition Management: -Insomnia: nortriptyline stopped due to concern of sedation -Hypothyroidism: levothyroxine -GERD: lansoprazole -Depression: lexapro -Asthma: singulair, albuterol PRN FEN: Low Na, Pureed Code status: DNR/DNI DVT ppx: Lovenox Total Time Total Time Spent Total Time Spent (In Minutes): <30 Discharge Plan Discharge Items Patient Disposition: Transfer Half-Way Fac Reason For Visit: LETHARGY Discharge Diagnosis: Hepatic encephalopathy, anemia Activity: Per Instructions section Non-emergency contact: Primary Care Provider Call non-emergency contact if: you have any medication questions and your symptoms worsen Follow-up/Referrals: Tayla Kent DO [Primary Care Provider] - Diet: Low Sodium (2gm) Diet Texture: Pureed (blended smooth) Addtl Attending Provider Instructions: Tammy Caceres is a 73 year-old female with past medical history of ventricular tachycardia, liver abscess, CAD, IBS, RA, and HLD presenting with SOB and lethargy. Upon admission, patient appeared to be actively dying with severe multifactorial acute on chronic illness. After extensive discussion with family she was transitioned to comfort care 08/10. A few days after she remarkably awakened and was AOx3. is aware that her change of status is a remarkable surprise but that she still does have a very significant illness burden. She was changed from comfort measures only to cautious ongoing management of comorbidities 08/20. Diet ordered, permission aspiration allowed as she is at high aspiration risk. Discussed aspiration risk versus nutrition. However patient did have improvement of symptoms and was able to transition to SNF. Elevated Transaminases | Elevated Bilirubin | Thrombocytopenia | Edema -Likely 2/2 extensive biliary/hepatic disease burden including liver abscesses and biliary stenting Most likely with underlying liver disease (clinical picture concerning for cirrhosis vs type 4 RTA); liver bx has been contemplated for last several admissions, but at this time patient and do not feel she is well enough to proceed with liver bx, explained to patient & family that targeted treatment for her illness is limited without a specific tissue diagnosis. -CT A/P: small bilateral pleural effusions and a small amount of ascites, moderate to severe body wall edema -Patient and family electing to postpone liver biopsy for diagnosis to later date despite risks/benefits discussion -[address] Liver (recommended by GI), completed: the liver is normal in size and slightly heterogeneous in attenuation. No enhancing hepatic mass lesion is seen. -Would recommend following up with reconsideration for liver biopsy as outpatient -Continue for now with hydromorphone 2mg q4h PRN for pain Anemia, chronic -Hgb in 7s throughout hospitalization. Recent asymptomatic dips into 6s. Received four total units of PRBCs. No signs of active bleeding, FOB negative. -No evidence of acute blood loss; etiology likely multifactorial; malnutrition, iron deficiency, B12 deficiency, hemodilution, anemia of chronic disease -Central line was removed on day of discharge -Recommend following up as outpatient with hematology for persistent anemia requiring blood transfusion -Would recommend checking a CBC twice weekly for the next few weeks to monitor hemoglobin -Next CBC should be completed on (09/04) Acute metabolic encephalopathy - Resolved -Initially altered in the setting of urosepsis and hepatic encephalopathy. Now AOx4. CT head negative. Elevated ammonia levels on presentation; resolved at time of discharge Hypoglycemia -BS 66 on admission; no documented h/o of DM. Glucose levels remain low, patient continuing to improve PO intake, otherwise asymptomatic Urosepsis - Resolved -Presented with urinary symptoms. UA grossly infected. ESBL on urine cx. Blood cx negative. Treated with ceftriaxone and zosyn, completed course. Elevated troponin | CAD | HFrEF - Resolved -Peaked, likely demand in the setting of acute illness/AMS. HFrEF appears stable (Echo w/ EF 40-45% in 2020), CT chest w/ pulmonary edema/effusions Chronic Condition Management: -Insomnia: nortriptyline stopped due to concern of sedation -Hypothyroidism: levothyroxine -GERD: lansoprazole -Depression: lexapro -Asthma: singulair, albuterol PRN FEN: Low Na, Pureed Code status: DNR/DNI DVT ppx: Lovenox Pending Studies at Discharge: No Stand-Alone Forms: My [facility] Skilled Items Patient informed of condition?: Yes DNR: Yes Discharge Level of Care: Skilled Communicable Disease: No Discharge Prognosis: Stable Lines: None Urinary Catheter: No Medications and DC Order Prescriptions: New levothyroxine [Synthroid] 75 mcg Tablet 75 mcg PO DAILYBB 30 Days Qty: 30 0RF escitalopram oxalate 10 mg Tablet 10 mg PO QAM 30 Days Qty: 30 0RF Continued lansoprazole [Prevacid 24Hr] 15 mg capsule,delayed release(DR/EC) 15 mg PO QAM Qty: 90 1RF Rx Instructions: TAKE 1 CAPSULE BY MOUTH EVERY DAY nitroglycerin [Nitrostat] 0.4 mg Tablet, Sublingual 0.4 mg sublingual Q5M PRN (Reason: chest pain) Qty: 25 3RF Rx Instructions: can take 1 tablet every 5 minutes for up to 3 total doses. Call 911 for chest pain that does not resolve after 1st dose. albuterol sulfate [Ventolin HFA] 90 mcg/actuation HFA aerosol inhaler 1 - 2 puff inhalation .Q 4-6 HRS PRN (Reason: shortness of breath or wheezing) Qty: 6.7 0RF Rx Instructions: 1-2 puffs inhalation 1 puff INH every 4-6 hrs; PRN; montelukast [Singulair] 10 mg tablet 10 mg PO QAM Qty: 30 0RF Discontinued acetaminophen [Tylenol Arthritis Pain] 650 mg tablet extended release 650 mg PO Q8H levothyroxine 75 mcg tablet 75 mcg PO QAM Qty: 90 1RF escitalopram oxalate [Lexapro] 20 mg tablet 20 mg PO QAM Qty: 90 1RF aspirin 81 mg tablet,delayed release (DR/EC) 81 mg PO QAM Qty: 90 1RF carvedilol 6.25 mg tablet 6.25 mg PO BIDM Qty: 180 3RF nortriptyline 25 mg capsule 25 mg PO HS Qty: 90 2RF menthol-zinc oxide [Calmoseptine] 0.44-20.6 % ointment 1 applic topical QID PRN (Reason: skin irritation) Qty: 113 5RF polyethylene glycol 3350 [Miralax] 17 gram/dose powder 17 g PO DAILY PRN (Reason: constipation) Qty: 119 2RF calcium carbonate-vitamin D3 600 mg-5 mcg (200 unit) Tablet 1 tab PO QAM folic acid 1 mg tablet 1 mg PO QAM potassium chloride 10 mEq tablet extended release 10 meq PO QAM Discharge Orders: Discharge Order (Routine); Ordered 09/02/23 Ordered By: Radha Fletcher Admission Data Admit Date/Time: 08/07/23 22:02 Attending Provider: Arun Christianson Admit Provider: Bisi Kidd Primary Care Provider: Tayla Kent Other Providers: Kong Mead [facility]; [facility]; Diego Duggan; Ady Gaitan; Carlitos Martinez; Yuniel Echeverria; Mandi Donovan Other Interventions: Discharge Summary Assessment (RN) Last Done: 09/02/23 11:31 Supervising Physician Co-Signing Physician Notes I personally examined the patient and verified all corbett points of history and exam, discussed case, and agree with decision making with Dr Fletcher no new issues. really wants to get out of hospital Vitals noted, in general she is awake, no distress. Breathing unlabored no accessory muscle use good effort. Skin shows no rashes no pallor or icterus. Neuro without focal deficits. Anemianow status post a total of 4 units transfusionunclear source. Might all be poor hematopoiesisclose f/u of CBC, may require periodic outpt transfusions. hematology eval when possible (was not urgent and pt/family prioritized getting to SNF rather than inpatient consult) Possible underlying liver diseaseliver CT nondescript. Still suspect a biopsy could be helpful. for SNF today otherwise as above
--- NOTE | 2023-09-02 18:04 | Billing Data ---
Date of Service September 02, 2023 Coding Level of Care Code 67823 IN/OBS DISCH 30 MIN/LESS
== END 2023-09-02 15:00 | DRG 871 ==
LOC: ED 18:09 → SUATTDRO 22:02 → EDINP 22:02 → 2S 08-08 00:10 → 1E 08-08 18:05 → 3E 08-10 17:13
DX: Z88.6 Allergy status to analgesic agent; I25.10 Atherosclerotic heart disease of native coronary artery without angina pectoris; Z51.5 Encounter for palliative care; I13.0 Hypertensive heart and chronic kidney disease with heart failure and stage 1 through stage 4 chronic kidney disease, or unspecified chronic kidney disease; I50.23 Acute on chronic systolic (congestive) heart failure; B96.1 Klebsiella pneumoniae [K. pneumoniae] as the cause of diseases classified elsewhere; N39.0 Urinary tract infection, site not specified; Z88.2 Allergy status to sulfonamides; A41.9 Sepsis, unspecified organism; J96.01 Acute respiratory failure with hypoxia; E43 Unspecified severe protein-calorie malnutrition; Z79.899 Other long term (current) drug therapy; Z91.040 Latex allergy status; E03.9 Hypothyroidism, unspecified; J45.909 Unspecified asthma, uncomplicated; K21.9 Gastro-esophageal reflux disease without esophagitis; G47.00 Insomnia, unspecified; G93.41 Metabolic encephalopathy; F32.A Depression, unspecified; K76.82 Hepatic encephalopathy; Z79.82 Long term (current) use of aspirin; E87.5 Hyperkalemia; J15.0 Pneumonia due to Klebsiella pneumoniae; Z66 Do not resuscitate; Z88.8 Allergy status to other drugs, medicaments and biological substances; Z79.890 Hormone replacement therapy; E27.40 Unspecified adrenocortical insufficiency; N17.9 Acute kidney failure, unspecified; E16.2 Hypoglycemia, unspecified; E72.20 Disorder of urea cycle metabolism, unspecified; F41.9 Anxiety disorder, unspecified

== ENCOUNTER 2024-09-11 16:00 | Inpatient (IN) ==
--- OUTSIDE RECORDS SUMMARY | 2024-09-11 16:05 | External Medical Summary | Summary of Care ---
Author Name Unknown Organization [facility] Address [address] [place] [address] Phone [phone] Care Team Providers Care Health Worker Name Role Phone Clarence Cullen MD Primary Care Provide r Encounter Details Date Type Department Care Team (Late st Contact Info) Description 09/01/2024 Result Scan Unspecified Department <No scans attached> Allergies Active Allergy Reactions Criticality Noted Date Comments Bacitracin 07/23/2021 Benzalkonium Chloride 07/23/2021 Ciprofloxacin Rash Medium 07/12/2021 Clarithromycin 11/16/2003 Itching and hives Hydroxychloroquine High 2022 Other reaction(s): itching rash Ketorolac Tromethamine 11/16/2003 itching Meclofenamate Sodium 05/21/2005 Rash Meperidine 11/16/2003 Hives Metronidazole Rash Medium 07/12/2021 Montelukast Edema airway High 07/21/2015 Can take brand name singular just not generic Nirmatrelvir-Ritonavir High 2022 Other reaction(s): rash itching Nsaids 11/16/2003 anaprox, naprosyn, diclofenac, coltain, lodine, indocin, relafen, daypro feldane clinoril trilisate, Polymyxin B 07/23/2021 Quinine 07/24/2021 Quinine Sulfate Dihydrate 11/16/2003 Itching and hives Sulfanilamide 07/24/2021 Tobramycin Sulfate 12/16/2008 Acetaminophen 01/29/2024 documented as of this encounter (statuses as of 09/10/2024) Medications Nitroglycerin 0.4 MG Sublingual Tablet Sublingual (Nitrostat) Place 1 Tablet under the tongue as needed for Pain, Chest. May repeat 3 times. If chest pain continues, call 911. 4 Active traMADol HCl 50 MG Oral Tablet (Ultram) Take 1 Tablet by mouth daily as needed for Pain, Severe. 15 Tablet 4 Active Probiotic Gummies 30 MG Oral Tablet Chewable Take 1 Each by mouth daily. 30 Tablet 4 Active Ventolin HFA 108 (90 Base) MCG/ACT Inhalation Aerosol Solution Inhale 2 Puffs by mouth every 4 hours as needed for Wheezing or Shortness of Breath. 18 g 4 Active Metoprolol Succinate ER 50 MG Oral Tablet Extended Release 24 Hour (toPROL XL) take 1 tablet daily at noon 4 Active Singulair 10 MG Oral Tablet (montelukast) TAKE 1 TABLET IN THE EVENING 90 Tablet 1 4 Active Nortriptyline HCl 25 MG Oral Capsule (Pamelor) TAKE ONE CAPSULE BY MOUTH AT BEDTIME 90 Capsule 1 4 Active Fish Oil 300 MG Oral Capsule Take by mouth. Ac tive Magnesium 30 MG Oral Tablet Take by mouth. Act toma Aspirin Low Dose 81 MG Oral Tablet Delayed Release (aspirin enteric coated) take 1 tablet daily at noon 30 Tablet 5 4 Active Gabapentin 100 MG Oral Capsule (Neurontin)Sonal cations:Chronic bilateral low back pain without sciatica TAKE ONE CAPSULE IN THE MORNING and TAKE 1 CAPSULE AT NOON and TAKE TWO CAPSULES AT BEDTIME 120 Capsule 5 4 Active Lansoprazole 15 MG Oral Capsule Delayed Release (Prevacid) in the evening 90 Capsule 2 4 Active Potassium Chloride Tonya ER 20 MEQ Oral Tablet Extended Release TAKE ONE TABLET IN THE MORNING 90 Tablet 2 4 Active Escitalopram Oxalate 10 MG Oral Tablet (Lexapro) TAKE ONE TABLET IN THE MORNING 90 Tablet 2 4 Active Calcium Carb-Cholecalci ferol 600-10 MG-MCG Oral TabletIndicatio ns:Rheumatoid arthritis involving multiple sites with positive rheumatoid factor (HCC) take 1 tablet daily at noon and TAKE 1 TABLET IN THE EVENING 60 Tablet 5 4 Active Levothyroxine Sodium 75 MCG Oral Tablet (Levoxyl) TAKE ONE TABLET IN THE MORNING 90 Tablet 2 4 Active Folic Acid 1 MG Oral Tablet take 1 tablet daily at noon 30 Tablet 5 4 Active documented as of this encounter (statuses as of 09/10/2024) Active Problems Problem Noted Date Diagnosed Date Chronic bilateral low back pain without sciatica 01/16/2024 Primary insomnia 01/16/2024 Chronic anemia 01/16/2024 History of breast cancer 01/16/2024 Osteoarthritis of left knee 10/13/2023 History of 2019 novel coronavirus disease (COVID -19) 10/07/2023 Hypoproteinemia 09/17/2023 Full code status 09/12/2023 Unspecified severe protein-calorie malnutrition 09/03/2023 HFrEF (heart failure with reduced ejection fract ion) 09/03/2023 Thrombocytopenia 09/03/2023 History of Clostridium difficile colitis 024 Deep tissue injury 09/03/2023 Atherosclerosis of [place] artery of extremity Rheumatoid arthritis involvi ng multiple sites with positive rheumatoid factor 09/02/2023 Ventricular tachycardia 09/02/2023 Liver abscess 09/02/2023 Hepatic encephalopathy 09/02/2023 Moderate persistent asthma without complication 09/02/2023 Chronic HFrEF (heart failure with reduced ejection fraction) 09/02/2023 Anemia, chronic disease 09/02/2023 Folic acid deficiency 09/02/2023 Hypomagnesemia 09/02/2023 Mild episode of recurrent major depressive disor hina 09/02/2023 Coronary artery disease of n ative artery of [place] heart with stable angina pectoris 08/28/2021 Gastroesophageal reflux disease without esophagi tis 08/28/2021 Ischemic cardiomyopathy 08/28/2021 HTN, goal below 140/90 07/07/2009 Overview (07/07/2009): Modified per HTN Taxonomy. Acquired hypothyroidism 11/16/2003 Irritable bowel syndrome 11/16/2003 Hyperlipidemia with target LDL less than 100 documented as of this encounter (statuses as of 09/10/2024) Resolved Problems Problem Noted Date Diagnosed Date Resolved Date Major depressive disorder with single episode 09/03/19 24 09/03/2023 Other osteoporosis without c urrent pathological fracture 09/03/2023 01/16/2024 Pressure injury of buttock, unstageable 09/03/2023 11/19/2023 Fungemia 08/28/2021 09/05/2021 Gallbladder perforation 08/28/202112/2021 Hypoglycemia 08/28/2021 09/05/2021 Septic shock 08/25/2021 09/05/2021 Encounter for long-term (cur rent) use of medications 12/23/2011 08/28/2021 Overview (06/24/2017): ICD-10 update of inactive term Pain in joint involving lower leg 04/02/2007 08/28/2021 ADVANCE DIRECTIVE INFORMATION 12/26/2006 09/02/2023 Overview (12/26/2006): No, Advance Directive brochure offered , patient declined. Myalgia and myositis 12/06/2003 021 DISC DIS [id number] 11/16/200310/2023 GENERAL OSTEOARTHROSIS 11/16/200309/02 BENIGN HYPERTENSION 11/16/2003 07/07/20 09 Overview (07/07/2009): Modified per HTN Taxonomy. Hypopotassemia 11/16/2003 09/02/2023 GENERALIZED ANXIETY DIS 11/16/200310/2023 Chronic sinusitis 11/16/2003 08/28/2021 documented as of this encounter (statuses as of 09/10/2024) Immunizations Name Administration Dates Next Due COVID-19 mRNA, LNP-s, No Pre serve, 2-Dose Series (Path) 07/31/2021 Pneumococcal Conjugate Vacc, 13 Valent (Prevnar) 06/15/2015 Seasonal Influenza Vac., MDV , IM, 0.5 mL (Fluzone) 06/01/2015 Seasonal Influenza, High Dos e, Trivalent, PF, IM (Fluzone HD) 06/25/2024 Seasonal Influenza, Quadriva lent Hd (Fluzone Hd) 09/06/2021(Deferred: Contraindication - Pt states she already had her flu shot this year) documented as of this encounter Social History Tobacco Use Types Packs/Day Years Used Date Smoking Tobacco: Never Smokeless Tobacco: Never Alcohol Use Standard Drinks/Week Comments No 0 (1 standard drink = 0.6 oz pur e alcohol) Comments No Sex and Gender Information Value Date Recorded Sex Assigned at Not on file Legal Sex Female 5:26 AM EST Gender Identity Not on file Sexual Orientation Not on file documented as of this encounter Functional Status * Do you have serious difficulty walking or climbing stairs? (5 years old or older) Answer Date of Assessment Author Yes 08/26/2021 1:54 PM Murtaza Campos RN documented as of this encounter Plan of Treatment Health Maintenance Due Date Last Done Comments Depression Monitoring 1964 DTap/Tdap Vaccines (1 - Tdap) 1971 Cologuard 1997 Fecal Occult Blood Test 1997 Sigmoidoscopy 1997 Hepatitis B Vaccine (1 of 3 - Risk 3-dose series) 2012 Zoster Vaccines (2 of 3) 10/27/2014 09/01/2014 Adult Wellness Visit 2018 *SPIROMETRY ONCE FOR ASTHMA-ADULT 09/04/2023 *BASELINE EKG FOR HTN 01/20/2024 COVID-19 Vaccine ( season) 2024 07/01/2022, 03/01/2022, 07/31/2021, Additional history exists Mammogram 04/09/2025 04/09/2024, 08/0 05/2024, 05/27/2013, Additional history exists GFR 09/08/2025 09/08/2024, 12/30, 11/14/2023, Additional history exists TSH 09/08/2025 09/08/2024, 12/30, 08/28/2021 Albumin/Creatinine Ratio 01/15/2027 01/16/2024 DXA Scan 11/29/2029 11/29/2022 Colonoscopy 05/31/2032 05/31/2022, 05/31/2022 Colorectal Cancer Screening 05/31/2032 Pneumococcal Vaccine: 50+ Years Completed 03/24/2023, 07/01/2017, 06/15/2015 Influenza Vaccine (FLU shot) Completed , 06/25/2024, 05/24/2020, Additional history exists HPV (Gardasil) Vaccine Aged Out No lo nger eligible based on patient's age to complete this topic MENINGOCOCCAL (MENACTRA/MENVEO) Aged Out No longer eligible based on patient's age to complete this topic documented as of this encounter Medical Devices Implanted Type Area Orchard Sprayer Device Identifier Shelf Expiration Date Model / Serial / Lot Lens Intraoc 20.5 - [id number] - [id number] Implanted:Qty : 1 on 03/27/2020 by Jos Gomez MD at OR [facility] [employer] 08/31/2024 [id number] / [id number] / Lens Intraoc 20.5 - [id number] - [id number] Implanted:Qty : 1 on 04/04/2020 by Jos Gomez MD at OR [facility] Left: Eye [employer] 10/01/2024 [id number] / [id number] / [id number] Stent Axios [id number] - [id number] Implanted:Qty : 1 on 07/23/2021 by Mis Ellison MD at OR [facility] Abdomen [employer] : ENDOSCOPY 05/16/2023 [id number] / / Coral Garcia [id number] - [id number] Implanted:Qty : 1 on 08/25/2021 at [facility] [id number] 03/23/2024 [id number] / / [id number] Coral Bazzi 10.2f [id number] - [id number] Implanted:Qty : 1 on 09/21/2021 at [facility] : DIAGNOSTIC INTERVENTION [id number] 06/26/2024 [id number] / / [id number] Stent Biliary Adult L30mm Dia1 - [id number] Implanted:Qty : 1 on 09/26/2021 by Mis Ellison MD at [facility] : [employer] 06/11/2024 [id number] / / [id number] Stent Panc Dbl Pigtail [id number] - [id number] Implanted:Qty : 2 on 09/26/2021 by Mis Ellison MD at OR [facility] [employer] 05/01/2024 [id number] / / [id number] Stent Trapezoid 3.0cm 1089 - [id number] Implanted:Qty : 1 on 09/26/2021 by Mis Ellison MD at OR [facility] [employer] : ENDOSCOPY 02/06/2022 [id number] / / [id number] documented as of this encounter Procedures Procedure Name Priority Date/Time Associated Diagnosis Comments EKG SCANNED RESULT 09/01/2024 documented in this encounter Results * EKG SCANNED RESULT (09/01/2024) 09/01/2024 us No Physician Data Unknown EKG Final Result documented in this encounter Advance Directives * Full Code (Latest Code Status on File) Date Activated Date Inactivated Comments 08/25/2021 5:33 AM 09/06/2021 5:33 PM This order r eflects the patients wishes and were consensually agreed upon. Question Answer Comments Discussion of Advance Directives occurred with: Family Care Teams Health Worker Relationship Specialty Start Date End Date Clarence Cullen MD [address] [place] [address] PATRICK Garcia [id number] PCP - General Family Medicine 02/18/24 documented as of this encounter
--- OUTSIDE RECORDS SUMMARY | 2024-09-11 16:05 | External Medical Summary | Summary of Care ---
Author Name Unknown Organization [facility] Address [address] [place] [place] [address] Phone [phone] Care Team Providers Care Mortgage Loan Officer Originator Name Role Phone Clarence Cullen MD Primary Care Provide r Reason for Visit * Reason Onset Date Comments Abnormal Test Results 09/09/2024 Review kenneth Sue Encounter Details Date Type Department Care Team (Late st Contact Info) Description 09/09/2024 12:30 PM EST Scheduled Telephone Ancillary [address] [place] [id number] Natanael, Nurse [address] [place] [id number] Allergies Active Allergy Reactions Criticality Noted Date [...] at noon 30 Tablet 5 4 Active Loperamide HCl 2 MG Oral Capsule (Imodium) Take 1 Capsule by mouth 4 times a day as needed for Diarrhea. 30 Capsule 3 5 Active documented as of this encounter (statuses [...] 024 Deep tissue injury 09/03/2023 Atherosclerosis of [place] artery of extremity Rheumatoid arthritis involvi ng [...] artery disease of n ative artery of [place] heart with stable angina pectoris 08/28/2021 Gastroesophageal [...] Myalgia and myositis 12/06/2003 021 DISC DIS [id number] 11/16/20030 10/2023 GENERAL OSTEOARTHROSIS 11/16/200309/02 BENIGN HYPERTENSION 11/16/2003 07/07/20 09 Overview (07/07/2009): Modified per HTN Taxonomy. Hypopotassemia 11/16/2003 09/02/2023 GENERALIZED ANXIETY DIS 11/16/2003/0 10/2023 Chronic sinusitis 11/16/2003 08/28/2021 documented as of [...] of Assessment Author Yes 08/26/2021 1:54 PM EST Murtaza Woodward RN documented as of this encounter Miscellaneous Notes * Telephone Encounter - Hayley Law LPN - 09/10/2024 12:05 PM EST Patient aware and verbalized understanding, will comply * Telephone Encounter - Milvia Velásquez OSA - 09/10/2024 12:01 PM EST Reason for patient's call: Test results Caller was transferred to Hayley at the nurse line. * Telephone Encounter - Michelle Welsh RN - 09/09/2024 1:06 PM EST Attempted Phone Call Second Attempt Call Outcome Left Voicemail/Message * Telephone Encounter - Michelle Welsh RN - 09/09/2024 10:26 AM EST I spoke to provider and she states she sent a myG to patient. myG message sent was : Your kidney function is a little decreased, most likely from the diarrhea. Make sure you are drinking a lot of fluids. If your symptoms get worse, please let me know. I would like to recheck some labs in about a week or two. Linette did say because her T4 was normal it was ok. * Telephone Encounter - Michelle Welsh RN - 09/09/2024 8:17 AM EST RN Lead: Michelle Welsh RN Date: 09/09/2024 Patient seen for ASC: 09.08.24 Tried to reach patient. Assessment Pt. seen: by Linette Aldana Treatment plan: Pt was in [facility] ER a week ago with diarrhea. Pt was diagnosed with UTI and given IV rocephin. She was given cipro Diarrhea, unspecified type (Primary) - CLOSTRIDIUM DIFFICILE, PCR; Future; Expected date: 09/08/2024 - COMPREHENSIVE METABOLIC PANEL; Future; Expected date: 09/08/2024 - CBC WITH WBC DIFFERENTIAL AND ANEMIA REFLEX WORKUP; Future; Expected date: 09/08/2024 UTI (urinary tract infection) - URINALYSIS, POINT OF CARE Other orders - Loperamide HCl 2 MG Oral Capsule (Imodium); Take 1 Capsule by mouth 4 times a day as needed for Diarrhea. Component Latest Ref Rng 09/08/2024 TSH 0.27 - 4.20 uIU/mL 16.20 (H) T4, Free 0.9 - 1.7 ng/dL 1.2 Attempted Phone Call First Attempt Call Outcome Left Voicemail/Message I will also send message to provider for advice and will keep trying to reach patient. documented in this encounter Plan of Treatment Health Maintenance [...] 07/31/2021, Additional history exists Mammogram 04/09/2025 04/09/2024, 0805/2024, 05/27/2013, Additional history exists GFR 09/08/2025 09/08/2024, [...] this encounter Medical Devices Implanted Type Area Logging Supervisor Device Identifier Shelf Expiration Date Model / Serial / Lot Lens Intraoc 20.5 - [id number] - [id number] Implanted:Qty : 1 on 03/27/2020 by Jos Gomez MD at OR [facility] [employer] 08/31/2024 [id number] / [id number] / Lens Intraoc 20.5 - [id number] - [id number] Implanted:Qty : 1 on 04/04/2020 by Jos Gomez MD at OR [facility] Left: Eye [employer] 10/01/2024 [id number] / [id number] / [id number] Stent Axios [id number] - [id number] Implanted:Qty : 1 on 07/23/2021 by Mis Ellison MD at OR [facility] Abdomen [employer] : ENDOSCOPY 05/16/2023 [id number] / / Cath Jayjay Garcia [id number] - [id number] Implanted:Qty : 1 on 08/25/2021 at [facility] : DIAGNOSTIC INTERVENTION [id number] 03/23/2024 [id number] / / [id number] Cath Pascual Bazzi 10.2f [id number] - [id number] Implanted:Qty : 1 on 09/21/2021 at [facility] : DIAGNOSTIC INTERVENTION [id number] 06/26/2024 [id number] / / [id number] Stent Biliary Adult L30mm Dia1 - [id number] Implanted:Qty : 1 on 09/26/2021 by Mis Ellison MD at OR [facility] COOK : [employer] 06/11/2024 [id number] / / [id number] Stent Panc Dbl Pigtail [id number] - [id number] Implanted:Qty : 2 on 09/26/2021 by Mis Ellison MD at OR [facility] [employer]a [employer] 05/01/2024 [id number]-1033- [id number] / / [id number] Stent Trapezoid 3.0cm 1089 - [id number] Implanted:Qty : 1 on 09/26/2021 by Mis Ellison MD at OR [facility] [employer] : ENDOSCOPY 02/06/2022 [id number] / / [id number] documented as of this encounter Advance Directives * Full Code (Latest Code Status on File) Date Activated Date Inactivated Comments 08/25/2021 5:33 AM 09/06/2021 5:33 PM This order r eflects the patients wishes and were consensually agreed upon. Question Answer Comments Discussion of Advance Directives occurred with: Family Care Teams Mortgage Loan Officer Originator Relationship Specialty Start Date End Date Clarence Cullen MD [address] [place] [address] [place] [phone] PCP - General Family Medicine 02/18/24 documented as of this encounter
--- OUTSIDE RECORDS SUMMARY | 2024-09-11 16:06 | External Medical Summary ---
Author Name Unknown Address Unknown Organization [id number]:[facility] - [address] [facility] [place] [address] Laboratory Report Ordering Provider Test Date Status NAHED IVLLARREALLubna 09/10/2024 08:12:34 Preliminary Observation Date Value Abnormality Reference (Units) Status Bacteria identified in Specimen by Culture 09/10/2024 08:12:34 Too young reincubate Preliminary Test: Culture, Urine, Quanti tative
Specimen Source: Urine, Clean Catch
Specimen Type: Urine
Specimen Date: 09/10/2024 0812
Result Date: 09/11/2024 1021
Result Status: Preliminary result
Resulting Lab: [facility]
[address]
[place] [address]

CULTURE

Too young reincubate

null Performing Location [facility] - [address] [facility] [place] [address]
[2024-09-11] MEDS: SODIUM CHLORIDE 0.9% 1,000 ML IV SCH (16:44)
--- NOTE | 2024-09-11 16:53 | XRay Report ---
Chest radiograph, one view History: Chest pain Comparison: Findings: Single AP view of the chest performed. No focal consolidation or pleural effusion. No pneumothorax. The cardiomediastinal silhouette is within normal limits. Normal pulmonary vascularity. No evidence for lymphadenopathy. No visualized bony or soft tissue abnormality. Bilateral total shoulder arthroplasty. Impression: Normal chest radiograph Electronically signed by Pratik Conley 09-11-2024 4:52 PM
[2024-09-11 17:07] LABS: Basophils # (auto) 0.04 K/uL (0.00-0.20); Basophils % (auto) 0.4 %; Eosinophils # (auto) 0.33 K/uL (0.00-0.50); Eosinophils % (auto) 3.4 %; Hematocrit (blood only) 33.8 % (37.0-47.0); Hemoglobin 10.7 g/dl (12.0-16.0); Immature Granulocytes # (auto) 0.04 K/uL (0.01-0.20); Immature Granulocytes % (auto) 0.4 %; Lymphocytes # (auto) 1.98 K/uL (1.20-3.40); Lymphocytes % (auto) 20.6 %; Mean Corpuscular Hemoglobin 28.9 pg (25.0-34.0); Mean Corpuscular Hgb Conc 31.7 g/dL (32.0-36.0); Mean Corpuscular Volume 91.4 fL (80.0-100.0); Mean Platelet Volume 10.6 fL (9.4-12.4); Monocytes # (auto) 0.65 K/uL (0.11-0.59); Monocytes % (auto) 6.8 %; Neutrophils # (auto) 6.58 K/uL (1.40-6.50); Neutrophils % (auto) 68.4 %; Platelet Count 241 K/uL (130-400); RDW Standard Deviation 47.1 fL (36.4-46.3); White Blood Count 9.62 K/ul (4.8-10.8)
[2024-09-11 17:24] LABS: Albumin Level 3.4 gm/dl (3.4-5.0); BUN Creatinine Ratio 16.5 (10-20); Bilirubin Direct 0.3 mg/dl (0-0.2); Bilirubin,Total 0.6 mg/dl (0.2-1.0); Calcium 8.9 mg/dl (8.6-10.3); Creatinine Clr Calc Pharmacy 51.3 ml/min; Magnesium 2.1 mg/dl (1.7-2.4); Potassium 3.9 mmol/L (3.5-5.1); Total Protein 7.9 gm/dl (6.0-8.3)
[2024-09-11 17:32] LABS: Troponin I High Sensitivity 5.2 pg/ml (0-14)
[2024-09-11 18:07] LABS: Appearance Urine Turbid (Clear); Bacteria Urine Automated 3+ (None Seen); Bilirubin Urine Negative (Negative); Blood Urine 1+ (Negative); Cast Urine Automated 0-2 /lpf (0-2); Color Urine Yellow; Epithelial Cell Urine Auto 0-2 /hpf (0-2); Glucose Urine UA Negative (Negative); Ketones Urine Negative (Negative); Leukocyte Esterase Urine 1+ (Negative); Nitrite Urine Negative (Negative); Protein Urine Negative (Negative); RBC Urine Automated >20 /hpf (0-2); Specific Gravity Urine 1.009 (1.000-1.030); Urobilinogen Urine Negative (Negative); WBC Urine Automated 0-5 /hpf (0-5)
--- NOTE | 2024-09-11 19:30 | Emergency Department Note ---
Impression & Plan Generalized weakness, Confusion ED Provider Note ED Provider Note NAME: CANDELARIO MOBLEY AGE:74 SEX: Female : 1950 ARRIVES VIA: Private vehicle INFORMANT: Patient ED PROVIDER(s): Kassidy Jack DO CHIEF COMPLAINT: Increased weakness, confusion HPI: This is a 74-year-old female brought in by family due to concern for increased weakness and confusion. Patient had been seen and evaluated here last night. She did opt to go home and seemed improved following her visit and family was comfortable taking her home. They state since arriving home she has become progressively more weak and today during the day seemed intermittently confused. They are concerned for an occult infection stating this has happened previously with urinary tract infections. Patient states she was able to eat today and had no nausea, vomiting, abdominal pain, or diarrhea. She states she is urinating. They states she was using her walker today and still seemed weak and wobbly and family had to help her additionally. She denies fevers, chills, chest pain, shortness of breath, or headaches. PAST MEDICAL HISTORY:See Below PAST SURGICAL HISTORY:See Below FAMILY HISTORY:See Below SOCIAL HISTORY:See Below HOME MEDICATIONS:See Below ALLERGIES:See Below VITALS:See Below PHYSICAL EXAMINATION: GENERAL: alert, well appearing, well nourished, no distress, non-toxic EYE EXAM: normal conjunctiva, PERRL and EOM's grossly intact OROPHARYNX: no exudate, no erythema, lips, buccal mucosa, and tongue normal and mucous membranes are dry NECK: supple, no nuchal rigidity, no adenopathy, non-tender LUNGS: Clear to auscultation. Normal chest wall mechanics, no w/r/r HEART: no murmurs, S1 normal and S2 normal ABDOMEN: abdomen soft, non-tender, normo-active bowel sounds, no masses, no rebound or guarding. SKIN: no rashes, petechiae, orbruising UPPER EXTREMITIES: upper extremities are grossly normal. FROM, nml pulses b/l. LOWER EXTREMITIES: No pitting edema. FROM, nml pulses b/l. NEURO EXAM: Normal sensorium, cranial nerves II-XII grossly intact, normal speech, no facial droop,nogross weakness of arms, no gross weakness of legs. Gross sensation intact. No ataxia. Vital Signs: reviewed and remarkable Differential Diagnosis: dehydration, stroke, anemia, hypoglycemia, hyponatremia, hypernatremia, urinary tract infection, pneumonia, bronchitis, sepsis, gastroenteritis, additional abdominal pathology, metabolic abnormalities, as well as others were considered MEDICAL DECISION MAKING: This is a 74-year-old female who presents to the emergency department due to family concern for increasing weakness, difficulty walking, and intermittent confusion. Patient seen and evaluated last night with a reassuring evaluation and reported feeling improved. She was offered additional inpatient evaluation at that time and declined stating she wanted to go home and family was comfortable with this plan. Family now reports she seems worse and brought her back. She was afebrile and vital signs stable. Labs drawn and sent, IV established, EKG and chest ray performed at bedside interpreted me and patient monitored on telemetry. Urine collected again and sent for analysis. UA from last night not convincing for evolving infection. Family feels her symptoms are consistent with when she has had prior urinary tract infections. Due to concern for worsening systemic symptoms and prior history will cover patient with IV antibiotics. I did discuss choice of antibiotics with the pharmacist due to patient's extensive allergy list and after review of prior urine cultures which grew out a Klebsiella ESBL. Patient given IV fluids here and remained hemodynamically stable throughout. Case discussed with the hospitalist team for additional evaluation and management. Consultation(s): 1944: Discussed with Dr. Thakur, [facility] hospitalist team, for additional evaluation and management. ER Treatment Provided: See below Diagnostics Interpreted By Me: -ECG: Normal sinus at 67, first-degree AV block, normal axis, left bundle branch block, nonspecific ST/T wave changes -Cardiac Monitoring: An order was placed for continuous cardiac monitoring. The monitor shows a rate of 66 with normal sinus rhythm. -Laboratory studies: As stated above and show below. -Imaging studies: X-ray Chest: A single view study of the chest was reviewed and was negative for cardiomegaly, focal infiltrate, effusion, pulmonary edema, or wide mediastinum. Triage Nursing Note Reviewed Prior/Outside Records Reviewed -prior urine cultures reviewed Past Med/Surg History Problem List (Updated 09/12/24 @ 08:24 by Khris Fischer MD) Complicated UTI (urinary tract infection) Confusion (Acute) Generalized weakness (Acute) Generalized weakness (Acute) Acute UTI (urinary tract infection) (Acute) Diarrhea (Acute) Generalized weakness (Acute) HFrEF (heart failure with reduced ejection fraction) Acute kidney injury Acute metabolic encephalopathy Lethargy Hyperkalemia (Acute) Elevated troponin Clostridium difficile colitis Hepatic encephalopathy Sepsis (Acute) Hypocalcemia Hypotension Thrombocytopenia Colitis Elevated bilirubin Elevated INR Orthostatic hypotension Anxiety Depression Vitamin D deficiency Compression fracture of body of thoracic vertebra Per CXR 11/21/18, compression fractures at T8, T10-L3 vertebral bodies, severe at T12. SURGEON MADE AWARE. Osteoarthritis Chronic back pain Rotator cuff arthropathy of left shoulder Immunosuppression due to drug therapy Anemia (Acute) Folic acid deficiency Iron deficiency anemia Hypomagnesemia (Acute) Ischemic cardiomyopathy Coronary artery disease Cardiac catheterization -02/22/2021:Impression: 1. Severe CAD involving ostial/proximal LAD (100%), filling via left to left and right to left collaterals. 2. Otherwise nonobstructive CAD involving the mid circumflex. 3. No aortic stenosis. 4. Normal left-sided filling pressure. Sacroiliitis (Chronic) Lumbar spinal stenosis Lumbar facet joint syndrome Insomnia Rheumatoid arthritis (Chronic) Hyperlipidemia History of right breast cancer s/p lumpectomy (1969)- no chemo or xrt Hypothyroidism GERD (gastroesophageal reflux disease) IBS (irritable bowel syndrome) Steroid-induced osteoporosis Allergic rhinitis Asthma Hypertension Medical History Acute hypoxic respiratory failure Acute UTI V-tach Liver abscess History of COVID-19 DX 05/2021 (NO SYMPTOMS>PT STATES WAS A FALSE POSITIVE) Anxiety and depression Cholecystitis with perforation of gallbladder Anemia Hx of fracture Right shoulder AC joint fracture (10/2020) due to traumatic event > healing without surgical intervention Surgical History History of biopsy Nausea and vomiting after administration of anesthetic agent History of cardiac cath NO - [place] [facility] History of ERCP WITH STENT (NOT PRESENT) H/O cataract extraction R/L eye S/P ORIF (open reduction internal fixation) fracture Left ankle H/O arthroscopy of shoulder L shoulder S/p reverse total shoulder arthroplasty Left reverse TSA (02/26/19): Grade view 2, MAC#3, ETT 7 + PNB at [facility] (scope patch used) History of tonsillectomy History of foot surgery R/L History of arthroscopy of left knee History of right knee joint replacement History of total abdominal hysterectomy and bilateral salpingo-oophorectomy d/t endometriosis History of lumpectomy of right breast History of breast biopsy Family History Grandmother (Paternal) Family history of diabetes mellitus Grandmother (Maternal) Family history of diabetes mellitus Father Coronary heart disease Alzheimer disease Myocardial infarction Osteoarthritis COPD (chronic obstructive pulmonary disease) Lung disease Mother Myocardial infarction COPD (chronic obstructive pulmonary disease) Other No family history of adverse response to anesthesia Denies family history of Ovarian cancer Prostate cancer Breast cancer Colorectal cancer Social History Smoking Status: Never smoker Second Hand Exposure: No; Do You Dip or Chew Tobacco: No; Tobacco Cessation Education Requested by Patient: No Hx Alcohol Use: No Hx Substance Use: No Preferred Language: Mohawk Communication Ability: Effective Visual Impairment: No Limitations Hearing Ability: Normal [employer] Required: No Beliefs That Will Affect Care: None marital status: Current Living Situation: Spouse Current Living Situation Comment: Home with family current occupational status: retired How many Children do You have: 2 Other Information That Helps Us Care for You: No Feels Safe at Home: Yes Safety Concerns: Feels Safe At This Time Childhood Exposure to Second-Hand Smoke: Yes Diet: regular Diet Comment: regular caffeine: Yes (coffee) during the past year weight has: remained stable Dental Care, Regularly: No Physical Activity Frequency: Daily Physical Activity Frequency Comment: walking indoors Seatbelt Use: always Sunscreen Use: No Assistive Devices: Denture - Upper, Denture - Lower and Wheelchair Allergies Allergies Allergy/AdvReac Type Severity Reaction Status Date / Time doxycycline Allergy Severe Anaphylaxis Verified 09/11/24 17:34 bacitracin Allergy Intermediate Hives, Verified 09/11/24 17:34 blisters clavulanic acid Allergy Intermediate Hives Verified 09/11/24 17:34 diphenhydramine Allergy Intermediate Hives Verified 09/11/24 17:34 iodine Allergy Intermediate Hives Verified 09/11/24 17:34 ketorolac Allergy Intermediate Hives Verified 09/11/24 17:34 meclofenamic acid Allergy Intermediate Hives Verified 09/11/24 17:34 neomycin Allergy Intermediate Hives, Verified 09/11/24 17:34 blisters NSAIDS (Non-Steroidal Allergy Intermediate Hives Verified 09/11/24 17:34 Anti-Inflamma (tolerates Celebrex) oxycodone Allergy Intermediate Hives Verified 09/11/24 17:34 (tolerates Vicodin) polymyxin B Allergy Intermediate Hives, Verified 09/11/24 17:34 blisters quinine Allergy Intermediate Hives Verified 09/11/24 17:34 Sulfa (Sulfonamide Allergy Intermediate Hives Verified 09/11/24 17:34 Antibiotics) tramadol Allergy Intermediate Hives, Verified 09/11/24 17:34 itching adhesive Allergy Mild Rash Verified 09/11/24 17:34 hydroxychloroquine Allergy Mild Rash Verified 09/11/24 17:34 latex Allergy Mild Rash Verified 09/11/24 17:34 methotrexate Allergy Mild Rash Verified 09/11/24 17:34 povidone-iodine Allergy Mild Rash Verified 09/11/24 17:34 meperidine AdvReac Intermediate N/V Verified 09/11/24 17:34 prednisone AdvReac Intermediate Made Verified 09/11/24 17:34 "bones soft" aspirin AdvReac Mild N/V Verified 09/11/24 17:34 Home Meds Home Medications Medication Instructions Recorded Confirmed aspirin 81 mg tablet,delayed 81 mg PO DAILY 12/02/23 09/11/24 release (Adult Aspirin Regimen) fluticasone propionate 50 1 spray intranasal DAILY 12/02/23 09/11/24 mcg/actuation nasal spray,suspension folic acid 1 mg tablet 1 mg PO DAILY 12/02/23 09/11/24 levothyroxine 75 mcg tablet 75 mcg PO QAM 12/02/23 09/11/24 loperamide 2 mg tablet 2 mg PO BID PRN Diarrhea 12/02/23 09/11/24 potassium chloride 20 mEq 20 meq PO QAM 12/02/23 09/11/24 tablet,extended release tramadol 50 mg tablet 50 mg PO DAILY PRN Pain 12/02/23 09/11/24 Lactobacillus rhamnosus GG 10 1 cap PO QAM 09/11/24 09/11/24 billion cell capsule (Culturelle) calcium 600 mg (as 1 tab PO QPM 09/11/24 09/11/24 carbonate)-vitamin D3 10 mcg (400 unit) tablet escitalopram oxalate 10 mg tablet 10 mg PO QAM 09/11/24 09/11/24 gabapentin 100 mg capsule See Rx Instructions .Route .COMPLEX 09/11/24 09/11/24 lansoprazole 15 mg capsule,delayed 15 mg PO QPM 09/11/24 09/11/24 release (Prevacid 24Hr) montelukast 10 mg tablet 10 mg PO QPM 09/11/24 09/11/24 nortriptyline 25 mg capsule 25 mg PO HS 09/11/24 09/11/24 Previous Rx's Medication Instructions Recorded nitroglycerin 0.4 mg sublingual 0.4 mg sublingual Q5M PRN chest 09/02/23 tablet (Nitrostat) pain #25 tabs albuterol sulfate 90 mcg/actuation 1 - 2 puff inhalation .Q 4-6 HRS 10/30/23 aerosol inhaler (Ventolin HFA) PRN shortness of breath or wheezing #6.7 grams magnesium 200 mg tablet 400 mg (2 x 200 mg) PO DAILY #30 12/03/23 tabs metoprolol succinate 50 mg 50 mg PO DAILY #30 tabs 12/05/23 tablet,extended release 24 hr Results & Data (ED) Vital Signs Vital Signs - 24 hr 09/11/24 18:20 09/11/24 20:08 09/11/24 20:19 Pulse Rate 68 Pulse Rate [Apical] 65 69 Respiratory Rate 18 20 Respiratory Effort / Characteristics Non-Labored Spontaneous Non-Labored Respiratory Depth Normal Normal Respiratory Pattern Regular Blood Pressure [Right Arm] 116/62 113/65 Blood Pressure Mean [Right Arm] 80 81 Blood Pressure Position [Right Arm] Lying Pulse Oximetry 94 91 Oxygen Delivery Method Room Air Room Air Laboratory Data 09/12/24 06:10 09/12/24 06:10 Lab Results 09/11/24 09/11/24 Range/Units 16:24 17:25 WBC 9.62 (4.8-10.8) K/ul RBC 3.70 L (4.20-5.40) M/uL Hgb 10.7 L (12.0-16.0) g/dl Hct 33.8 L (37.0-47.0) % MCV 91.4 (80.0-100.0) fL MCH 28.9 (25.0-34.0) pg MCHC 31.7 L (32.0-36.0) g/dL RDW Std Deviation 47.1 H (36.4-46.3) fL RDW Coeff of Ender 14.0 (11.5-14.5) % Plt Count 241 (130-400) K/uL MPV 10.6 (9.4-12.4) fL Immature Gran % (Auto) 0.4 % Neut % (Auto) 68.4 % Lymph % (Auto) 20.6 % [place] % (Auto) 6.8 % Eos % (Auto) 3.4 % Baso % (Auto) 0.4 % Neut # (Auto) 6.58 H (1.40-6.50) K/uL Lymph # (Auto) 1.98 (1.20-3.40) K/uL [place] # (Auto) 0.65 H (0.11-0.59) K/uL Eos # (Auto) 0.33 (0.00-0.50) K/uL Baso # (Auto) 0.04 (0.00-0.20) K/uL Immature Gran # (Auto) 0.04 (0.01-0.20) K/uL Sodium 133 L (136-145) mmol/L Potassium 3.9 (3.5-5.1) mmol/L Chloride 99 (98-107) mmol/L Carbon Dioxide 27 (21-32) mmol/L Anion Gap 7 (3-11) BUN 15 (6-23) mg/dl Creatinine 0.91 (0.6-1.2) mg/dl Est Cr Clr Drug Dosing 51.3 ml/min eGFR 67.03 BUN/Creatinine Ratio 16.5 (10-20) Glucose 109 H (70-99(Fasting)) mg/dl Lactate 1.4 (0.4-2.0) mmol/L Calcium 8.9 (8.6-10.3) mg/dl Magnesium 2.1 (1.7-2.4) mg/dl Total Bilirubin 0.6 (0.2-1.0) mg/dl Direct Bilirubin 0.3 H (0-0.2) mg/dl AST 15 (13-39) U/L ALT 10 (7-52) U/L Alkaline Phosphatase 129 H (34-104) U/L Troponin I High Sens 5.2 (0-14) pg/ml Total Protein 7.9 (6.0-8.3) gm/dl Albumin 3.4 (3.4-5.0) gm/dl Procalcitonin 0.27 (0-0.5) ng/ml Urine Color Yellow Urine Appearance Turbid A (Clear) Urine pH 7.0 (4.5-7.5) Ur Specific [place] 1.009 (1.000-1.030) Urine Protein Negative (Negative) Urine Glucose (UA) Negative (Negative) Urine Ketones Negative (Negative) Urine Blood 1+ H (Negative) Urine Nitrite Negative (Negative) Urine Bilirubin Negative (Negative) Urine Urobilinogen Negative (Negative) Ur Leukocyte Esterase 1+ H (Negative) Urine WBC (Auto) 0-5 (0-5) /hpf Urine RBC (Auto) >20 H (0-2) /hpf U Hyaline Cast (Auto) 0-2 (0-2) /lpf U Epithel Cells (Auto) 0-2 (0-2) /hpf Urine Bacteria (Auto) 3+ H (None Seen) Administered Medications Aspirin (Aspirin 81 Mg Ectab) 81 mg PO DAILY [facility] Stop: 10/12/24 08:59 Last Admin: 09/12/24 08:26 Dose: 81 mg Documented By: GENE Enoxaparin Sodium (Enoxaparin Inj 40 Mg/0.4 Ml Syr) 40 mg SQ QAM [facility] Stop: 10/12/24 08:59 Last Admin: 09/12/24 08:27 Dose: 40 mg Documented By: GENE Escitalopram Oxalate (Escitalopram Oxalate 10 Mg Tab) 10 mg PO QAM [facility] Stop: 10/12/24 08:59 Last Admin: 09/12/24 08:26 Dose: 10 mg Documented By: GENE Fluticasone Propionate (Fluticasone Propionate Na Spr 16 Gm Btl) 1 sprays NA DAILY [facility] Stop: 10/12/24 08:59 Last Admin: 09/12/24 08:26 Dose: 1 sprays Documented By: GENE Folic Acid (Folic Acid 1 Mg Tab) 1 mg PO DAILY [facility] Stop: 10/12/24 08:59 Last Admin: 09/12/24 08:27 Dose: 1 mg Documented By: GENE Gabapentin (Gabapentin 100 Mg Cap) 100 mg PO BID@0900,1200 [facility] Stop: 10/12/24 08:59 Last Admin: 09/12/24 11:40 Dose: 100 mg Documented By: Admin: 09/12/24 08:27 Dose: 100 mg Documented By: GENE Gabapentin (Gabapentin 100 Mg Cap) 200 mg PO HS [facility] Stop: 10/11/24 20:59 Last Admin: 09/11/24 21:55 Dose: 200 mg Documented By: RIAN Levothyroxine Sodium (Levothyroxine Sodium 75 Mcg Tablet) 75 mcg PO DAILYBB [facility] Stop: 10/12/24 06:29 Last Admin: 09/12/24 05:40 Dose: 75 mcg Documented By: ARMANDO Magnesium Oxide (Magnesium Oxide 400 Mg Tab) 400 mg PO DAILY [facility] Stop: 10/12/24 08:59 Last Admin: 09/12/24 08:26 Dose: 400 mg Documented By: GENE Metoprolol Succinate (Metoprolol Succ 50mg Ext Rel Tab) 50 mg PO DAILY [facility] Stop: 10/12/24 08:59 Last Admin: 09/12/24 08:26 Dose: 50 mg Documented By: GENE Montelukast Sodium (Montelukast Sodium 10 Mg Tablet) 10 mg PO QPM [facility] Stop: 10/11/24 20:59 Last Admin: 09/11/24 21:29 Dose: 10 mg Documented By: RIAN Nortriptyline HCl (Nortriptyline Hcl 25 Mg Cap) 25 mg PO HS [facility] Stop: 10/11/24 20:59 Last Admin: 09/11/24 21:55 Dose: 25 mg Documented By: RIAN Pantoprazole Sodium (Pantoprazole 40 Mg Tab) 40 mg PO QPM [facility] Stop: 10/11/24 21:29 Last Admin: 09/11/24 21:29 Dose: 40 mg Documented By: RIAN Discontinued Medications Sodium Chloride (Nss) 1,000 mls @ 999 mls/hr IV .Q1H1M [facility] Stop: 09/11/24 17:45 Last Infusion: 09/11/24 18:57 Dose: Infused Documented By: Admin: 09/11/24 16:44 Dose: 999 mls/hr Documented By: FRANCE Ertapenem (Invanz 1000mg) 1,000 mg in 10 mls @ 2 mls/min IV NOW STA Stop: 09/11/24 19:22 Last Admin: 09/11/24 20:33 Dose: 2 mls/min Documented By: ES Imaging Data Radiologist's Impression: Chest X-Ray 09/11/24 16:32 Chest radiograph, one view History: Chest pain Comparison: Findings: Single AP view of the chest performed. No focal consolidation or pleural effusion. No pneumothorax. The cardiomediastinal silhouette is within normal limits. Normal pulmonary vascularity. No evidence for lymphadenopathy. No visualized bony or soft tissue abnormality. Bilateral total shoulder arthroplasty. Impression: Normal chest radiograph Electronically signed by Pratik Conley 09-11-2024 4:52 PM Discharge Plan Visit Data Chief Complaint: Lethargic Stated Complaint: LETHARGIC,GETTING WORSE,UTI ED Provider: Kassidy Jack Discharge Problem: Generalized weakness, Confusion Patient Disposition: Admitted As Inpatient Discharge Instructions Interventions: ED Discharge Assessment Last Done: 09/11/24 20:52
--- NOTE | 2024-09-11 20:23 | History & Physical Report ---
Date of Service September 11, 2024 Assessment & Plan (1) Complicated UTI (urinary tract infection): Plan: Complicated UTI No sepsis for now chronic systolic heart failure (EF 40 to 44%, TTE 2023), patient euvolemic to dry valvular heart disease (mild AR/TR) hx CAD hypothyroidism, recent TSH elevated with normal free T4 breast cancer status post surgery chronic anemia, hemoglobin slightly lower than baseline without overt bleed symptoms anxiety/mood disorder, stable past tobacco abuse Admit to medical Urine CS, Ertapenem given history ESBL UTI PT OT eval DVT prophylaxis. Lovenox subcu Full code Patient requesting updates providers. Mr. Alli Caceres, contact #[phone]. Text document was generated using [employer] voice recognition software. It may contain grammatical or spelling errors. Kindly contact undersigned for clarification of any documentation item in question. History of Present Illness Chief Complaint: Weakness Primary Care Provider: Clarence Cullen MD History obtained from patient, family, and records. Medical history significant for chronic systolic heart failure (EF 40 to 44%, TTE 2023), valvular heart disease (mild AR/TR), CAD, VT, hypertension, hyperlipidemia, hypothyroidism, breast cancer status post surgery, GERD, history liver abscess, RA, chronic anemia (baseline hemoglobin 11), anxiety/mood disorder, past tobacco abuse. Last confinement September 2023 for metabolic encephalopathy secondary to urosepsis and liver disease. ESBL Klebsiella on urine's CS. Patient initially on comfort measures but transitioned to full care due to recovery as per note. 2 ER visits the last couple of weeks. 09/01 Patient seen at the ER for diarrhea and dehydration symptoms. Patient discharged home on Cipro Rx for possible UTI. Urine CS no growth. 09/10 Increasing weakness at home despite antibiotic Rx. Patient subsequently discharged home as per patient request. Increasing weakness and transient confusion noted today at home. Denies chest pain or SOB. No unusual back pain or hematuria complaints. Patient brought to ER for evaluation. Ertapenem administered at the ER for UTI. 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 Allergies Allergy/AdvReac Type Severity Reaction Status Date / Time doxycycline Allergy Severe Anaphylaxis Verified 09/11/24 17:34 bacitracin Allergy Intermediate Hives, Verified 09/11/24 17:34 blisters clavulanic acid Allergy Intermediate Hives Verified 09/11/24 17:34 diphenhydramine Allergy Intermediate Hives Verified 09/11/24 17:34 iodine Allergy Intermediate Hives Verified 09/11/24 17:34 ketorolac Allergy Intermediate Hives Verified 09/11/24 17:34 meclofenamic acid Allergy Intermediate Hives Verified 09/11/24 17:34 neomycin Allergy Intermediate Hives, Verified 09/11/24 17:34 blisters NSAIDS (Non-Steroidal Allergy Intermediate Hives Verified 09/11/24 17:34 Anti-Inflamma (tolerates Celebrex) oxycodone Allergy Intermediate Hives Verified 09/11/24 17:34 (tolerates Vicodin) polymyxin B Allergy Intermediate Hives, Verified 09/11/24 17:34 blisters quinine Allergy Intermediate Hives Verified 09/11/24 17:34 Sulfa (Sulfonamide Allergy Intermediate Hives Verified 09/11/24 17:34 Antibiotics) tramadol Allergy Intermediate Hives, Verified 09/11/24 17:34 itching adhesive Allergy Mild Rash Verified 09/11/24 17:34 hydroxychloroquine Allergy Mild Rash Verified 09/11/24 17:34 latex Allergy Mild Rash Verified 09/11/24 17:34 methotrexate Allergy Mild Rash Verified 09/11/24 17:34 povidone-iodine Allergy Mild Rash Verified 09/11/24 17:34 meperidine AdvReac Intermediate N/V Verified 09/11/24 17:34 prednisone AdvReac Intermediate Made Verified 09/11/24 17:34 "bones soft" aspirin AdvReac Mild N/V Verified 09/11/24 17:34 Home Medications Medication Instructions Recorded Confirmed Type nitroglycerin 0.4 mg sublingual 0.4 mg sublingual Q5M PRN chest 09/02/23 09/11/24 Rx tablet (Nitrostat) pain #25 tabs albuterol sulfate 90 mcg/actuation 1 - 2 puff inhalation .Q 4-6 HRS 10/30/23 09/11/24 Rx aerosol inhaler (Ventolin HFA) PRN shortness of breath or wheezing #6.7 grams aspirin 81 mg tablet,delayed 81 mg PO DAILY 12/02/23 09/11/24 History release (Adult Aspirin Regimen) fluticasone propionate 50 1 spray intranasal DAILY 12/02/23 09/11/24 History mcg/actuation nasal spray,suspension folic acid 1 mg tablet 1 mg PO DAILY 12/02/23 09/11/24 History levothyroxine 75 mcg tablet 75 mcg PO QAM 12/02/23 09/11/24 History loperamide 2 mg tablet 2 mg PO BID PRN Diarrhea 12/02/23 09/11/24 History potassium chloride 20 mEq 20 meq PO QAM 12/02/23 09/11/24 History tablet,extended release tramadol 50 mg tablet 50 mg PO DAILY PRN Pain 12/02/23 09/11/24 History magnesium 200 mg tablet 400 mg (2 x 200 mg) PO DAILY #30 12/03/23 09/11/24 Rx tabs metoprolol succinate 50 mg 50 mg PO DAILY #30 tabs 12/05/23 09/11/24 Rx tablet,extended release 24 hr Lactobacillus rhamnosus GG 10 1 cap PO QAM 09/11/24 09/11/24 History billion cell capsule (Culturelle) calcium 600 mg (as 1 tab PO QPM 09/11/24 09/11/24 History carbonate)-vitamin D3 10 mcg (400 unit) tablet escitalopram oxalate 10 mg tablet 10 mg PO QAM 09/11/24 09/11/24 History gabapentin 100 mg capsule See Rx Instructions .Route .COMPLEX 09/11/24 09/11/24 History lansoprazole 15 mg capsule,delayed 15 mg PO QPM 09/11/24 09/11/24 History release (Prevacid 24Hr) montelukast 10 mg tablet 10 mg PO QPM 09/11/24 09/11/24 History nortriptyline 25 mg capsule 25 mg PO HS 09/11/24 09/11/24 History Past Med/Surg History Problem List (Updated 09/12/24 @ 08:24 by Khris Fischer MD) Complicated UTI (urinary tract infection) Confusion (Acute) Generalized weakness (Acute) Generalized weakness (Acute) Acute UTI (urinary tract infection) (Acute) Diarrhea (Acute) Generalized weakness (Acute) HFrEF (heart failure with reduced ejection fraction) Acute kidney injury Acute metabolic encephalopathy Lethargy Hyperkalemia (Acute) Elevated troponin Clostridium difficile colitis Hepatic encephalopathy Sepsis (Acute) Hypocalcemia Hypotension Thrombocytopenia Colitis Elevated bilirubin Elevated INR Orthostatic hypotension Anxiety Depression Vitamin D deficiency Compression fracture of body of thoracic vertebra Per CXR 11/21/18, compression fractures at T8, T10-L3 vertebral bodies, severe at T12. SURGEON MADE AWARE. Osteoarthritis Chronic back pain Rotator cuff arthropathy of left shoulder Immunosuppression due to drug therapy Anemia (Acute) Folic acid deficiency Iron deficiency anemia Hypomagnesemia (Acute) Ischemic cardiomyopathy Coronary artery disease Cardiac catheterization -02/22/2021:Impression: 1. Severe CAD involving ostial/proximal LAD (100%), filling via left to left and right to left collaterals. 2. Otherwise nonobstructive CAD involving the mid circumflex. 3. No aortic stenosis. 4. Normal left-sided filling pressure. Sacroiliitis (Chronic) Lumbar spinal stenosis Lumbar facet joint syndrome Insomnia Rheumatoid arthritis (Chronic) Hyperlipidemia History of right breast cancer s/p lumpectomy (1969)- no chemo or xrt Hypothyroidism GERD (gastroesophageal reflux disease) IBS (irritable bowel syndrome) Steroid-induced osteoporosis Allergic rhinitis Asthma Hypertension Medical History Acute hypoxic respiratory failure Acute UTI V-tach Liver abscess History of COVID-19 DX 05/2021 (NO SYMPTOMS>PT STATES WAS A FALSE POSITIVE) Anxiety and depression Cholecystitis with perforation of gallbladder Anemia Hx of fracture Right shoulder AC joint fracture (10/2020) due to traumatic event > healing without surgical intervention Surgical History History of biopsy Nausea and vomiting after administration of anesthetic agent History of cardiac cath NO - [place] Tamir Arthur History of ERCP WITH STENT (NOT PRESENT) H/O cataract extraction R/L eye S/P ORIF (open reduction internal fixation) fracture Left ankle H/O arthroscopy of shoulder L shoulder S/p reverse total shoulder arthroplasty Left reverse TSA (02/26/19): Grade view 2, MAC#3, ETT 7 + PNB at [facility] (scope patch used) History of tonsillectomy History of foot surgery R/L History of arthroscopy of left knee History of right knee joint replacement History of total abdominal hysterectomy and bilateral salpingo-oophorectomy d/t endometriosis History of lumpectomy of right breast History of breast biopsy Family History Grandmother (Paternal) Family history of diabetes mellitus Grandmother (Maternal) Family history of diabetes mellitus Father Coronary heart disease Alzheimer disease Myocardial infarction Osteoarthritis COPD (chronic obstructive pulmonary disease) Lung disease Mother Myocardial infarction COPD (chronic obstructive pulmonary disease) Other No family history of adverse response to anesthesia Denies family history of Ovarian cancer Prostate cancer Breast cancer Colorectal cancer Social History Smoking Status: Never smoker Second Hand Exposure: No; Do You Dip or Chew Tobacco: No; Tobacco Cessation Education Requested by Patient: No Hx Alcohol Use: No Hx Substance Use: No Preferred Language: Swedish Communication Ability: Effective Visual Impairment: No Limitations Hearing Ability: Normal Healthcare Account Manager Required: No Beliefs That Will Affect Care: None marital status: Current Living Situation: Spouse Current Living Situation Comment: Home with family current occupational status: retired How many Children do You have: 2 Other Information That Helps Us Care for You: No Feels Safe at Home: Yes Safety Concerns: Feels Safe At This Time Childhood Exposure to Second-Hand Smoke: Yes Diet: regular Diet Comment: regular caffeine: Yes (coffee) during the past year weight has: remained stable Dental Care, Regularly: No Physical Activity Frequency: Daily Physical Activity Frequency Comment: walking indoors Seatbelt Use: always Sunscreen Use: No Assistive Devices: Denture - Upper, Denture - Lower and Wheelchair Review of Systems Review of Systems: As per HPI, all other systems reviewed and negative Physical Exam Physical Exam: GENERAL: Comfortable, obese, no respiratory distress SKIN: Pallor, warm HEENT: Pale palpebral conjunctivae, no ptosis, dry buccal mucosa NECK : Supple, no tenderness CHEST : Decreased breath sounds, no tenderness HEART : RRR, no obvious murmurs ABDOMEN: Some distention, nontender EXTREMITIES : No LE swelling/tenderness, no other conspicuous deformities noted NEUROLOGIC : Coherent, no facial asymmetry, gait and stance not assessed Results & Data Results & Data Vital Signs (Past 12 Hours) Vital Signs Temp Pulse Pulse Resp BP BP Pulse Ox 09/11/24 20:08 69 20 113/65 91 09/11/24 18:20 65 18 116/62 94 09/11/24 17:51 63 18 109/68 94 09/11/24 17:41 62 22 108/87 95 09/11/24 17:30 108/87 09/11/24 17:27 66 18 96 09/11/24 17:21 64 17 93 09/11/24 17:12 63 18 94 09/11/24 17:09 64 17 94 09/11/24 16:51 65 18 92 09/11/24 16:48 64 16 91 09/11/24 16:41 88 20 93 09/11/24 16:34 66 20 98/59 L 93 09/11/24 16:34 93 09/11/24 16:23 68 09/11/24 16:21 67 18 93 09/11/24 16:02 36.6 C 78 15 138/72 94 O2 Del Method 09/11/24 20:08 Room Air 09/11/24 18:20 Room Air 09/11/24 17:51 09/11/24 17:41 Room Air 09/11/24 17:30 09/11/24 17:27 09/11/24 17:21 09/11/24 17:12 09/11/24 17:09 09/11/24 16:51 09/11/24 16:48 09/11/24 16:41 Room Air 09/11/24 16:34 Room Air 09/11/24 16:34 Room Air 09/11/24 16:23 09/11/24 16:21 09/11/24 16:02 Room Air Laboratory Results Laboratory Results WBC 9.62 K/ul (4.8-10.8) 09/11/24 16:24 RBC 3.70 M/uL (4.20-5.40) L 09/11/24 16:24 Hgb 10.7 g/dl (12.0-16.0) L 09/11/24 16:24 Hct 33.8 % (37.0-47.0) L 09/11/24 16:24 MCV 91.4 fL (80.0-100.0) 09/11/24 16:24 MCH 28.9 pg (25.0-34.0) 09/11/24 16:24 MCHC 31.7 g/dL (32.0-36.0) L 09/11/24 16:24 RDW Std Deviation 47.1 fL (36.4-46.3) H 09/11/24 16:24 RDW Coeff of Ender 14.0 % (11.5-14.5) 09/11/24 16:24 Plt Count 241 K/uL (130-400) 09/11/24 16:24 MPV 10.6 fL (9.4-12.4) 09/11/24 16:24 Immature Gran % (Auto) 0.4 % 09/11/24 16:24 Neut % (Auto) 68.4 % 09/11/24 16:24 Lymph % (Auto) 20.6 % 09/11/24 16:24 [place] % (Auto) 6.8 % 09/11/24 16:24 Eos % (Auto) 3.4 % 09/11/24 16:24 Baso % (Auto) 0.4 % 09/11/24 16:24 Neut # (Auto) 6.58 K/uL (1.40-6.50) H 09/11/24 16:24 Lymph # (Auto) 1.98 K/uL (1.20-3.40) 09/11/24 16:24 [place] # (Auto) 0.65 K/uL (0.11-0.59) H 09/11/24 16:24 Eos # (Auto) 0.33 K/uL (0.00-0.50) 09/11/24 16:24 Baso # (Auto) 0.04 K/uL (0.00-0.20) 09/11/24 16:24 Immature Gran # (Auto) 0.04 K/uL (0.01-0.20) 09/11/24 16:24 Sodium 133 mmol/L (136-145) L 09/11/24 16:24 Potassium 3.9 mmol/L (3.5-5.1) 09/11/24 16:24 Chloride 99 mmol/L (98-107) 09/11/24 16:24 Carbon Dioxide 27 mmol/L (21-32) 09/11/24 16:24 Anion Gap 7 (3-11) 09/11/24 16:24 BUN 15 mg/dl (6-23) 09/11/24 16:24 Creatinine 0.91 mg/dl (0.6-1.2) 09/11/24 16:24 Est Cr Clr Drug Dosing 51.3 ml/min 09/11/24 16:24 eGFR 67.03 09/11/24 16:24 BUN/Creatinine Ratio 16.5 (10-20) 09/11/24 16:24 Glucose 109 mg/dl (70-99(Fasting)) H 09/11/24 16:24 Lactate 1.4 mmol/L (0.4-2.0) 09/11/24 16:24 Calcium 8.9 mg/dl (8.6-10.3) 09/11/24 16:24 Magnesium 2.1 mg/dl (1.7-2.4) 09/11/24 16:24 Total Bilirubin 0.6 mg/dl (0.2-1.0) 09/11/24 16:24 Direct Bilirubin 0.3 mg/dl (0-0.2) H 09/11/24 16:24 AST 15 U/L (13-39) 09/11/24 16:24 ALT 10 U/L (7-52) 09/11/24 16:24 Alkaline Phosphatase 129 U/L (34-104) H 09/11/24 16:24 Troponin I High Sens 5.2 pg/ml (0-14) 09/11/24 16:24 Total Protein 7.9 gm/dl (6.0-8.3) 09/11/24 16:24 Albumin 3.4 gm/dl (3.4-5.0) 09/11/24 16:24 Procalcitonin 0.27 ng/ml (0-0.5) 09/11/24 16:24 Urine Color Yellow 09/11/24 17:25 Urine Appearance Turbid (Clear) A 09/11/24 17:25 Urine pH 7.0 (4.5-7.5) 09/11/24 17:25 Ur Specific [place] 1.009 (1.000-1.030) 09/11/24 17:25 Urine Protein Negative (Negative) 09/11/24 17: Urine Glucose (UA) Negative (Negative) 09/11/24 17: Urine Ketones Negative (Negative) 09/11/24 17:25 Urine Blood 1+ (Negative) H 09/11/24 17:25 Urine Nitrite Negative (Negative) 09/11/24 17: Urine Bilirubin Negative (Negative) 09/11/24 17:25 Urine Urobilinogen Negative (Negative) 09/11/24 17:25 Ur Leukocyte Esterase 1+ (Negative) H 09/11/24 17:25 Urine WBC (Auto) 0-5 /hpf (0-5) 09/11/24 17:25 Urine RBC (Auto) >20 /hpf (0-2) H 09/11/24 17:25 U Hyaline Cast (Auto) 0-2 /lpf (0-2) 09/11/24 17:25 U Epithel Cells (Auto) 0-2 /hpf (0-2) 09/11/24 17:25 Urine Bacteria (Auto) 3+ (None Seen) H 09/11/24 17:25 Impressions Chest X-Ray 09/11/24 16:32 Chest radiograph, one view History: Chest pain Comparison: Findings: Single AP view of the chest performed. No focal consolidation or pleural effusion. No pneumothorax. The cardiomediastinal silhouette is within normal limits. Normal pulmonary vascularity. No evidence for lymphadenopathy. No visualized bony or soft tissue abnormality. Bilateral total shoulder arthroplasty. Impression: Normal chest radiograph Electronically signed by Pratik Conley 09-11-2024 4:52 PM Diagnostic Findings EKG as per my interpretation :Rate 65, NSR, LAD, LAFB, LVH, no ischemia
[2024-09-11] MEDS: ERTAPENEM 1000MG 1,000 MG/10 ML SYR IV STA (20:33)
[2024-09-11] MEDS ORDERED: NITROGLYCERIN SL 0.4 MG/TAB TAB SL PRN (20:48)
[2024-09-11] MEDS ORDERED: PROMETHAZINE 6.25 MG/50.25 ML BAG IV PRN (20:49)
[2024-09-11] MEDS: MONTELUKAST SODIUM 10 MG TABLET PO SCH (21:29)
[2024-09-11] MEDS: PANTOprazole 40 MG TAB PO SCH (21:29)
[2024-09-11] MEDS: GABAPENTIN 100 MG CAP PO SCH (21:55)
[2024-09-11] MEDS: NORTRIPTYLINE HCL 25 MG CAP PO SCH (21:55)
[2024-09-12] MEDS: LEVOTHYROXINE SODIUM 75 MCG TABLET PO SCH (05:40)
[2024-09-12 06:35] LABS: Basophils # (auto) 0.02 K/uL (0.00-0.20); Basophils % (auto) 0.3 %; Eosinophils # (auto) 0.29 K/uL (0.00-0.50); Eosinophils % (auto) 4.2 %; Hematocrit (blood only) 31.7 % (37.0-47.0); Hemoglobin 9.9 g/dl (12.0-16.0); Immature Granulocytes # (auto) 0.01 K/uL (0.01-0.20); Immature Granulocytes % (auto) 0.1 %; Lymphocytes # (auto) 1.43 K/uL (1.20-3.40); Lymphocytes % (auto) 20.8 %; Mean Corpuscular Hemoglobin 28.4 pg (25.0-34.0); Mean Corpuscular Hgb Conc 31.2 g/dL (32.0-36.0); Mean Corpuscular Volume 90.8 fL (80.0-100.0); Mean Platelet Volume 10.2 fL (9.4-12.4); Monocytes # (auto) 0.42 K/uL (0.11-0.59); Monocytes % (auto) 6.1 %; Neutrophils # (auto) 4.69 K/uL (1.40-6.50); Neutrophils % (auto) 68.5 %; Platelet Count 218 K/uL (130-400); RDW Standard Deviation 46.7 fL (36.4-46.3); Red Blood Count 3.49 M/uL (4.20-5.40); White Blood Count 6.86 K/ul (4.8-10.8)
[2024-09-12 07:07] LABS: BUN Creatinine Ratio 15.6 (10-20); Calcium 8.4 mg/dl (8.6-10.3); Creatinine Clr Calc Pharmacy 60.7 ml/min; Potassium 4.1 mmol/L (3.5-5.1)
[2024-09-12] MEDS: MAGNESIUM OXIDE 400 MG TAB PO SCH (08:26)
[2024-09-12] MEDS: ASPIRIN 81 MG ECTAB PO SCH (08:26)
[2024-09-12] MEDS: METOPROLOL SUCC 50MG EXT REL TAB PO SCH (08:26)
[2024-09-12] MEDS: ESCITALOPRAM OXALATE 10 MG TAB PO SCH (08:26)
[2024-09-12] MEDS: FLUTICASONE PROPIONATE NA SPR 16 GM BTL SCH (08:26)
[2024-09-12] MEDS: ENOXAPARIN INJ 40 MG/0.4 ML SYR SQ SCH (08:27)
[2024-09-12] MEDS: FOLIC ACID 1 MG TAB PO SCH (08:27)
[2024-09-12] MEDS: GABAPENTIN 100 MG CAP PO SCH (08:27)
[2024-09-12] MEDS ORDERED: [UNRECOGNIZED DRUG - OTHER] PO SCH (09:00)
--- NOTE | 2024-09-12 12:16 | Hospitalist Progress Note ---
Date of Service September 12, 2024 Assessment & Plan (1) Complicated UTI (urinary tract infection): Plan Patient is a 74-year-old female with Medical history significant for chronic systolic heart failure (EF 40 to 44%, TTE 2023), valvular heart disease (mild AR/TR), CAD, VT, hypertension, hyperlipidemia, hypothyroidism, breast cancer status post surgery, GERD, history liver abscess, RA, chronic anemia (baseline hemoglobin 11), anxiety/mood disorder, past tobacco abuse presenting with increased weakness and confusion at home. Complicated UTI generalized weakness Acute Metabolic Encephalopathy No sepsis for now UA suggestive of infection Urine culture pending Blood cultures pending Continue with IV ertapenem Adjust antibiotics based on culture Delirium precautions. Frequent reorientation, avoid sedating medications as able Generalized weakness and acute confusion likely in setting of UTI PT OT eval Continue to monitor Chronic Medical Problems: chronic systolic heart failure (EF 40 to 44%, TTE 2023), patient euvolemic to dry valvular heart disease (mild AR/TR) hx CAD hypothyroidism, recent TSH elevated with normal free T4 breast cancer status post surgery chronic anemia, hemoglobin slightly lower than baseline without overt bleed symptoms anxiety/mood disorder, stable past tobacco abuse Diet: HH DVT prophylaxis. Lovenox subcu Full code Admission and Anticipated Discharge Date Admission Date: September 11, 2024 Subjective patient was seen with her at bedside He notes that she has been very confused at home and was even trying to get out of bed to go quick Patient is alert and oriented upon questioning x 2 patient denying acute concerns Review of Systems Review of Systems: All systems reviewed & are unremarkable except as noted in Subjective Physical Exam Physical Exam: General: Alert, orientedx2. No acute distress Neuro: confused HEENT: NC/AT CV: RRR Resp: Breath sounds clear bilaterally, no increased effort of breathing Abdomen: Soft, nontender Extremities: No edema in lower extremities bilaterally. Results & Data Results & Data Vital Signs (Past 12 Hours) Vital Signs Temp Pulse Resp BP Pulse Ox O2 Del Method 09/12/24 08:35 36.8 C 72 16 119/72 94 Room Air Diagnostic Findings Chest X-Ray 09/11/24 16:32 Chest radiograph, one view History: Chest pain Comparison: Findings: Single AP view of the chest performed. No focal consolidation or pleural effusion. No pneumothorax. The cardiomediastinal silhouette is within normal limits. Normal pulmonary vascularity. No evidence for lymphadenopathy. No visualized bony or soft tissue abnormality. Bilateral total shoulder arthroplasty. Impression: Normal chest radiograph Electronically signed by Pratik Conley 09-11-2024 4:52 PM
[2024-09-12] MEDS: ERTAPENEM 1000MG 1,000 MG/10 ML SYR IV SCH (18:19)
[2024-09-13 08:19] LABS: Basophils # (auto) 0.03 K/uL (0.00-0.20); Basophils % (auto) 0.4 %; Eosinophils # (auto) 0.28 K/uL (0.00-0.50); Eosinophils % (auto) 4.1 %; Hematocrit (blood only) 28.9 % (37.0-47.0); Hemoglobin 9.1 g/dl (12.0-16.0); Immature Granulocytes # (auto) 0.03 K/uL (0.01-0.20); Immature Granulocytes % (auto) 0.4 %; Lymphocytes # (auto) 1.33 K/uL (1.20-3.40); Lymphocytes % (auto) 19.6 %; Mean Corpuscular Hemoglobin 28.3 pg (25.0-34.0); Mean Corpuscular Hgb Conc 31.5 g/dL (32.0-36.0); Mean Corpuscular Volume 89.8 fL (80.0-100.0); Mean Platelet Volume 10.2 fL (9.4-12.4); Monocytes # (auto) 0.46 K/uL (0.11-0.59); Monocytes % (auto) 6.8 %; Neutrophils # (auto) 4.65 K/uL (1.40-6.50); Neutrophils % (auto) 68.7 %; Platelet Count 231 K/uL (130-400); RDW Coefficient of Variation 14.1 % (11.5-14.5); RDW Standard Deviation 46.1 fL (36.4-46.3); Red Blood Count 3.22 M/uL (4.20-5.40); White Blood Count 6.78 K/ul (4.8-10.8)
[2024-09-13 08:39] LABS: Calcium 8.2 mg/dl (8.6-10.3); Creatinine Clr Calc Pharmacy 58.4 ml/min; Potassium 3.8 mmol/L (3.5-5.1)
[2024-09-13 09:01] LABS: Folate (Folic Acid),Ser orPlas > 22.30 ng/ml (>5.38)
[2024-09-13 09:02] LABS: Vitamin B12 191 pg/ml (180-914)
--- NOTE | 2024-09-13 10:33 | Hospitalist Progress Note ---
Date of Service September 13, 2024 Assessment & Plan (1) Complicated UTI (urinary tract infection): Plan Patient is a 74-year-old female with Medical history significant for chronic systolic heart failure (EF 40 to 44%, TTE 2023), valvular heart disease (mild AR/TR), CAD, VT, hypertension, hyperlipidemia, hypothyroidism, breast cancer status post surgery, GERD, history liver abscess, RA, chronic anemia (baseline hemoglobin 11), anxiety/mood disorder, past tobacco abuse presenting with increased weakness and confusion at home. Complicated UTI generalized weakness Acute Metabolic Encephalopathy No sepsis for now UA suggestive of infection Urine culture No growth to date Blood cultures no growth to date Continue with IV ertapenem Adjust antibiotics based on culture Delirium precautions. Frequent reorientation, avoid sedating medications as able Generalized weakness and acute confusion likely in setting of UTI PT OT eval Continue to monitor R hand injury R hand swelling patient with noted erythema and swelling to her right hand She states she injured it on her dog's [employer] [facility] hand x-ray from September 10 noting marked osteoarthritic changes and erosive arthritis but no noted fracture. CT of the right hand ordered if no fracture, consider an inflammatory process with the hand given swelling and erythema Already on antibiotics for UTI as noted above if there is any concern for infection Continue to monitor Consider Ortho input Chronic Medical Problems: chronic systolic heart failure (EF 40 to 44%, TTE 2023), patient euvolemic to dry valvular heart disease (mild AR/TR) hx CAD hypothyroidism, recent TSH elevated with normal free T4 breast cancer status post surgery chronic anemia, hemoglobin slightly lower than baseline without overt bleed symptoms anxiety/mood disorder, stable past tobacco abuse Diet: HH DVT prophylaxis. Lovenox subcu Full code Admission and Anticipated Discharge Date Admission Date: September 11, 2024 Subjective patient was seen sitting in a chair beside her bed More alert and oriented today Concerned about her right hand with noted erythema and swelling Notes she got it caught in her dog's leCandescent [employer] Review of Systems Review of Systems: All systems reviewed & are unremarkable except as noted in Subjective Physical Exam Physical Exam: General: Alert, orientedx2. No acute distress Neuro: confused HEENT: NC/AT CV: RRR Resp: Breath sounds clear bilaterally, no increased effort of breathing Abdomen: Soft, nontender Extremities: R hand with swelling and redness Results & Data Results & Data Vital Signs (Past 12 Hours) Vital Signs Temp Pulse Resp BP Pulse Ox O2 Del Method 01/13/25 09:43 Room Air 09/13/24 07:12 36.7 C 80 18 149/82 H 94 Room Air Diagnostic Findings Chest X-Ray 09/11/24 16:32 Chest radiograph, one view History: Chest pain Comparison: Findings: Single AP view of the chest performed. No focal consolidation or pleural effusion. No pneumothorax. The cardiomediastinal silhouette is within normal limits. Normal pulmonary vascularity. No evidence for lymphadenopathy. No visualized bony or soft tissue abnormality. Bilateral total shoulder arthroplasty. Impression: Normal chest radiograph Electronically signed by Pratik Conley 09-11-2024 4:52 PM
[2024-09-13] MEDS: IRON SUCROSE 200 MG in SODIUM CHLORIDE 0.9% 100 ML IV ONE (17:03)
--- NOTE | 2024-09-13 18:36 | CT Scan Report ---
EXAM: CT Right Upper Extremity Without Intravenous Contrast Hand INDICATION: Pain. Arthritis. TECHNIQUE: Axial computed tomography images of the right hand without intravenous contrast. Sagittal and coronal reformatted images were created and reviewed. This CT exam was performed using one or more of the following dose reduction techniques: automated exposure control, adjustment of the mA and/or kV according to patient size, and/or use of iterative reconstruction technique. COMPARISON: Plain radiographs 09/10/2024 FINDINGS: Limitations: Artifact from a ring on the fourth proximal phalanx significantly limits assessment of that finger as well as the adjacent third and fourth proximal phalanges. Bones/joints: There is moderate erosive change, spurring and narrowing of the first carpometacarpal joint. There is mild spurring and narrowing of the interphalangeal joints. No fracture, periosteal reaction or loose body noted. No dislocation. Soft tissues: No abnormality noted. IMPRESSION: 1. Limited by artifact from a ring on the fourth finger. 2. No acute abnormality identified. 3. Moderate erosive osteoarthritic change of the first carpometacarpal joint and mild primary osteoarthritis of the interphalangeal joints. ACT 112: Negative or not required by law. Electronically signed by Darlene Araiza 09-13-2024 6:35 PM
--- NOTE | 2024-09-14 06:40 | Electrocardiogram Report ---
Test Reason : Blood Pressure : */* mmHG Vent. Rate : 67 BPM Atrial Rate : 67 BPM P-R Int : 208 ms QRS Dur : 130 ms QT Int : 446 ms P-R-T Axes : 39 -28 99 degrees QTcB Int : 471 ms Normal sinus rhythm Left ventricular hypertrophy with QRS widening and repolarization abnormality Left bundle branch block Abnormal ECG When compared with ECG of 10-Sep-2024 18:14, No significant change Confirmed by Vlaidmir Martin ([id number]) on 09/14/2024 6:39:56 AM Referred By: REFERRED SELF Confirmed By: Vladimir Martin
[2024-09-14] MEDS: ACETAMINOPHEN 325 MG TAB PO PRN (07:32)
[2024-09-14 08:26] LABS: Basophils # (auto) 0.03 K/uL (0.00-0.20); Basophils % (auto) 0.4 %; Eosinophils # (auto) 0.25 K/uL (0.00-0.50); Eosinophils % (auto) 3.7 %; Hematocrit (blood only) 29.9 % (37.0-47.0); Hemoglobin 9.3 g/dl (12.0-16.0); Immature Granulocytes # (auto) 0.02 K/uL (0.01-0.20); Immature Granulocytes % (auto) 0.3 %; Lymphocytes # (auto) 1.37 K/uL (1.20-3.40); Lymphocytes % (auto) 20.1 %; Mean Corpuscular Hemoglobin 27.8 pg (25.0-34.0); Mean Corpuscular Hgb Conc 31.1 g/dL (32.0-36.0); Mean Corpuscular Volume 89.5 fL (80.0-100.0); Mean Platelet Volume 9.9 fL (9.4-12.4); Monocytes # (auto) 0.46 K/uL (0.11-0.59); Monocytes % (auto) 6.7 %; Neutrophils % (auto) 68.8 %; Platelet Count 219 K/uL (130-400); RDW Coefficient of Variation 14.3 % (11.5-14.5); RDW Standard Deviation 46.1 fL (36.4-46.3); Red Blood Count 3.34 M/uL (4.20-5.40); White Blood Count 6.83 K/ul (4.8-10.8)
[2024-09-14] MEDS: FERROUS SULFATE 325 MG TAB PO SCH (08:44)
[2024-09-14 08:50] LABS: BUN Creatinine Ratio 13.2 (10-20); Calcium 8.7 mg/dl (8.6-10.3); Creatinine Clr Calc Pharmacy 61.5 ml/min; Potassium 4.2 mmol/L (3.5-5.1)
--- NOTE | 2024-09-14 12:33 | Hospitalist Progress Note ---
Date of Service September 14, 2024 Assessment & Plan (1) Complicated UTI (urinary tract infection): Plan Patient is a 74-year-old female with Medical history significant for chronic systolic heart failure (EF 40 to 44%, TTE 2023), valvular heart disease (mild AR/TR), CAD, VT, hypertension, hyperlipidemia, hypothyroidism, breast cancer status post surgery, GERD, history liver abscess, RA, chronic anemia (baseline hemoglobin 11), anxiety/mood disorder, past tobacco abuse presenting with increased weakness and confusion at home. Complicated UTI generalized weakness Acute Metabolic Encephalopathy No sepsis for now UA suggestive of infection Urine culture No growth to date Blood cultures no growth to date Continue with IV ertapenem Adjust antibiotics based on culture Delirium precautions. Frequent reorientation, avoid sedating medications as able Generalized weakness and acute confusion likely in setting of UTI PT OT eval Continue to monitor R hand injury R hand swelling patient with noted erythema and swelling to her right hand She states she injured it on her dog's leash hand x-ray from September 10 noting marked osteoarthritic changes and erosive arthritis but no noted fracture. CT of the right hand noting arthritic changes if no fracture, consider an inflammatory process with the hand given swelling and erythema- trial of po prednisone 20mg daily x 5 days ordered Already on antibiotics for UTI as noted above if there is any concern for infection Continue to monitor Consider Ortho input Iron Deficiency Anemia iron levels low s/p IV venofer on 09/13/24 On ferrous sulfate po supplementation as well Continue to monitor oupt Chronic Medical Problems: chronic systolic heart failure (EF 40 to 44%, TTE 2023), patient euvolemic to dry valvular heart disease (mild AR/TR) hx CAD hypothyroidism, recent TSH elevated with normal free T4 breast cancer status post surgery chronic anemia, hemoglobin slightly lower than baseline without overt bleed symptoms anxiety/mood disorder, stable past tobacco abuse Diet: HH DVT prophylaxis. Lovenox subcu Full code Admission and Anticipated Discharge Date Admission Date: September 11, 2024 Subjective patient was seen with her at bedside Alert and oriented x 3, they both note that her mentation has improved Initially patient stating she does not want to go to rehab, encouraging her to. Plan still on hold for dispo patient is still very weak Review of Systems Review of Systems: All systems reviewed & are unremarkable except as noted in Subjective Physical Exam Physical Exam: General: Alert, orientedx3. No acute distress Neuro: AAOx3 HEENT: NC/AT CV: RRR Resp: Breath sounds clear bilaterally, no increased effort of breathing Abdomen: Soft, nontender Extremities: R hand with swelling and redness Results & Data Results & Data Vital Signs (Past 12 Hours) Vital Signs Temp Pulse Resp BP Pulse Ox O2 Del Method 09/14/24 07:30 36.4 C L 66 16 115/69 95 Room Air
[2024-09-14] MEDS: predniSONE 20 MG TAB PO SCH (16:18)
[2024-09-14] MEDS: BIOFREEZE TD PRN (20:29)
[2024-09-14] MEDS: PANTOprazole 40 MG TAB PO SCH (20:36)
[2024-09-14 21:11] LABS: Appearance Urine Clear (Clear); Bilirubin Urine Negative (Negative); Blood Urine Negative (Negative); Color Urine Yellow; Glucose Urine UA Negative (Negative); Ketones Urine Negative (Negative); Leukocyte Esterase Urine Negative (Negative); Nitrite Urine Negative (Negative); Protein Urine Negative (Negative); Urobilinogen Urine Negative (Negative); pH Urine 8.5 (4.5-7.5)
[2024-09-15 07:33] LABS: Basophils # (auto) 0.01 K/uL (0.00-0.20); Basophils % (auto) 0.1 %; Eosinophils # (auto) 0.01 K/uL (0.00-0.50); Eosinophils % (auto) 0.1 %; Hematocrit (blood only) 31.8 % (37.0-47.0); Hemoglobin 9.9 g/dl (12.0-16.0); Immature Granulocytes # (auto) 0.02 K/uL (0.01-0.20); Immature Granulocytes % (auto) 0.3 %; Lymphocytes % (auto) 17.6 %; Mean Corpuscular Hemoglobin 27.7 pg (25.0-34.0); Mean Corpuscular Hgb Conc 31.1 g/dL (32.0-36.0); Mean Corpuscular Volume 88.8 fL (80.0-100.0); Mean Platelet Volume 10.6 fL (9.4-12.4); Monocytes # (auto) 0.32 K/uL (0.11-0.59); Neutrophils % (auto) 77.9 %; Platelet Count 233 K/uL (130-400); RDW Coefficient of Variation 14.2 % (11.5-14.5); RDW Standard Deviation 46.1 fL (36.4-46.3); Red Blood Count 3.58 M/uL (4.20-5.40); White Blood Count 7.96 K/ul (4.8-10.8)
[2024-09-15 07:47] LABS: BUN Creatinine Ratio 13.3 (10-20); Creatinine Clr Calc Pharmacy 62.3 ml/min; Potassium 4.3 mmol/L (3.5-5.1)
--- NOTE | 2024-09-15 16:29 | Hospitalist Progress Note ---
Date of Service September 15, 2024 Assessment & Plan (1) Complicated UTI (urinary tract infection): Plan Patient is a 74-year-old female with Medical history significant for chronic systolic heart failure (EF 40 to 44%, TTE 2023), valvular heart disease (mild AR/TR), CAD, VT, hypertension, hyperlipidemia, hypothyroidism, breast cancer status post surgery, GERD, history liver abscess, RA, chronic anemia (baseline hemoglobin 11), anxiety/mood disorder, past tobacco abuse presenting with increased weakness and confusion at home. Complicated UTI generalized weakness Acute Metabolic Encephalopathy No sepsis for now UA suggestive of infection Urine culture No growth to date-more than 3 types of organisms with all high counts and repeat more than 3 types of organisms with all high counts collection and repeat collection recommended recommended Blood cultures no growth to date Continue with IV ertapenem Adjust antibiotics based on culture Delirium precautions. Frequent reorientation, avoid sedating medications as able Generalized weakness and acute confusion likely in setting of UTI Will send urine for culture again Clinically much better and awaiting PT and OT evaluation R hand injury R hand swelling patient with noted erythema and swelling to her right hand She states she injured it on her dog's leash hand x-ray from September 10 noting marked osteoarthritic changes and erosive arthritis but no noted fracture. CT of the right hand noting arthritic changes if no fracture, consider an inflammatory process with the hand given swelling and erythema- trial of po prednisone 20mg daily x 5 days ordered Already on antibiotics for UTI as noted above if there is any concern for infection Continue to monitor Consider Ortho input Denies any more significant pain in the right hand and the swelling has improved Iron Deficiency Anemia iron levels low s/p IV venofer on 09/13/24 On ferrous sulfate po supplementation as well Continue to monitor oupt Chronic Medical Problems: chronic systolic heart failure (EF 40 to 44%, TTE 2023), patient euvolemic to dry valvular heart disease (mild AR/TR) hx CAD hypothyroidism, recent TSH elevated with normal free T4 breast cancer status post surgery chronic anemia, hemoglobin slightly lower than baseline without overt bleed symptoms anxiety/mood disorder, stable past tobacco abuse Diet: DVT prophylaxis. Lovenox subcu Full code Admission and Anticipated Discharge Date Admission Date: September 11, 2024 Subjective 09/15/2024 The patient was seen and examined in medical floor in presence of the She has been feeling much better ready to be discharged Awaiting PT and OT evaluation Review of Systems Review of Systems: All systems reviewed and are unremarkable except as noted below Physical Exam Physical Exam: Sitting on a chair without any acute distress Constitutional: well developed, well nourished, + ill appearing and + obese Eyes: PERRL, conjunctivae normal, anicteric sclerae ENMT: external ear and nose normal, oropharynx normal Neck: trachea midline, no thyromegaly Respiratory: no respiratory distress Auscultation: lungs clear to auscultation bilaterally Cardiovascular: Rate/Rhythm: regular rate and regular rhythm; not tachycardic Heart Sounds: normal S1 and normal S2; no murmur Extremities: no edema Gastrointestinal (Abdomen): Inspection/Auscultation: normal bowel sounds; abdomen not distended Percussion/Palpation: abdomen soft; abdomen nontender Musculoskeletal: No acute arthritis involving any of the joint Neurologic: normal touch/pain/proprioception and moves all extremities; no focal motor deficits Lymphatic: no cervical or axillary lymphadenopathy Results & Data Results & Data Vital Signs (Past 12 Hours) Vital Signs Temp Pulse Resp BP Pulse Ox O2 Del Method 09/15/24 14:45 36.6 C 71 16 120/70 95 Room Air 09/15/24 09:30 Room Air 09/15/24 07:14 36.4 C L 64 16 108/68 97 Room Air Laboratory Results Short CBC 09/15/24 Range/Units 06:50 WBC 7.96 (4.8-10.8) K/ul Hgb 9.9 L (12.0-16.0) g/dl Hct 31.8 L (37.0-47.0) % Plt Count 233 (130-400) K/uL BMP 09/15/24 06:50 Sodium 137 Potassium 4.3 Chloride 103 Carbon Dioxide 28 BUN 10 Creatinine 0.75 Glucose 107 H Calcium 9.0 Urine 09/14/24 Range/Units Unknown Urine Color Yellow Urine Appearance Clear (Clear) Urine pH 8.5 H (4.5-7.5) Ur Specific [place] 1.010 (1.000-1.030) Urine Protein Negative (Negative) Urine Glucose (UA) Negative (Negative) Medications Administered Current Inpatient Medications Acetaminophen (Acetaminophen 325 Mg Tab) 650 mg PO QID PRN PRN Reason: pain/fever Stop: 10/11/24 20:48 Last Admin: 09/14/24 07:32 Dose: 650 mg Aspirin (Aspirin 81 Mg Ectab) 81 mg PO DAILY [facility] Stop: 10/12/24 08:59 Last Admin: 09/15/24 08:50 Dose: 81 mg Enoxaparin Sodium (Enoxaparin Inj 40 Mg/0.4 Ml Syr) 40 mg SQ QAM SIDDHARTHA Stop: 10/12/24 08:59 Last Admin: 09/15/24 08:51 Dose: 40 mg Escitalopram Oxalate (Escitalopram Oxalate 10 Mg Tab) 10 mg PO QAM SIDDHARTHA Stop: 10/12/24 08:59 Last Admin: 09/15/24 08:50 Dose: 10 mg Ferrous Sulfate (Ferrous Sulfate 325 Mg Tab) [facility] [place]: 10/14/24 08:59 Last Admin: 09/15/24 08:50 Dose: 325 mg Fluticasone Propionate (Fluticasone Propionate Na Spr 16 Gm Btl) 1 sprays NA DAILY SIDDHARTHA Stop: 10/12/24 08:59 Last Admin: 09/15/24 08:50 Dose: 1 sprays Folic Acid (Folic Acid 1 Mg Tab) 1 mg PO DAILY SIDDAHRTHA Stop: 10/12/24 08:59 Last Admin: 09/15/24 08:50 Dose: 1 mg Gabapentin (Gabapentin 100 Mg Cap) 100 mg PO BID@0900,1200 [facility] Stop: 10/12/24 08:59 Last Admin: 09/15/24 11:50 Dose: 100 mg Gabapentin (Gabapentin 100 Mg Cap) 200 mg PO HS SIDDHARTHA Stop: 10/11/24 20:59 Last Admin: 09/14/24 20:35 Dose: 200 mg Ertapenem (Invanz 1000mg) 1,000 mg in 10 mls @ 2 mls/min IV Q24H SIDDHARTHA Stop: 09/22/24 19:29 Last Admin: 09/14/24 20:58 Dose: 2 mls/min Promethazine HCl (Phenergan) 6.25 mg in 50.25 mls @ 201 mls/hr IV Q6H PRN PRN Reason: Nausea And Vomiting Stop: 10/11/24 20:48 Levothyroxine Sodium (Levothyroxine Sodium 75 Mcg Tablet) 75 mcg PO DAILYBB SIDDHARTHA Stop: 10/12/24 06:29 Last Admin: 09/15/24 05:29 Dose: 75 mcg Magnesium Oxide (Magnesium Oxide 400 Mg Tab) 400 mg PO DAILY SIDDHARTHA Stop: 10/12/24 08:59 Last Admin: 09/15/24 08:50 Dose: 400 mg Metoprolol Succinate (Metoprolol Succ 50mg Ext Rel Tab) 50 mg PO DAILY SIDDHARTHA Stop: 10/12/24 08:59 Last Admin: 09/15/24 08:50 Dose: 50 mg Montelukast Sodium (Montelukast Sodium 10 Mg Tablet) 10 mg PO QPM SIDDHARTHA Stop: 10/11/24 20:59 Last Admin: 09/14/24 20:36 Dose: 10 mg Nitroglycerin (Nitroglycerin Sl 0.4 Mg/Tab Tab) 0.4 mg SL Q5M PRN PRN Reason: chest pain Stop: 10/11/24 20:47 Biofreeze Non- Formulary Patient's Own Med 1 each TD TID PRN PRN Reason: pain Stop: 10/14/24 18:34 Last Admin: 09/15/24 11:51 Dose: 1 each Nortriptyline HCl (Nortriptyline Hcl 25 Mg Cap) 25 mg PO HS SIDDHARTHA Stop: 10/11/24 20:59 Last Admin: 09/14/24 20:35 Dose: 25 mg Pantoprazole Sodium (Pantoprazole 40 Mg Tab) 40 mg PO BID SIDDHARTHA Stop: 10/14/24 20:59 Last Admin: 09/15/24 08:50 Dose: 40 mg Prednisone (Prednisone 20 Mg Tab) 20 mg PO DAILY SIDDHARTHA Stop: 09/19/24 15:29 Last Admin: 09/15/24 08:50 Dose: 20 mg
[2024-09-15 19:40] VITALS: TEMP 97.5; O2SAT 96
[2024-09-16 07:17] VITALS: BP 129/76; RESP 18
--- NOTE | 2024-09-16 13:15 | Hospitalist Progress Note ---
Date of Service September 16, 2024 Assessment & Plan (1) Complicated UTI (urinary tract infection): Plan Patient is a 74-year-old female with Medical history significant for chronic systolic heart failure (EF 40 to 44%, TTE 2023), valvular heart disease (mild AR/TR), CAD, VT, hypertension, hyperlipidemia, hypothyroidism, breast cancer status post surgery, GERD, history liver abscess, RA, chronic anemia (baseline hemoglobin 11), anxiety/mood disorder, past tobacco abuse presenting with increased weakness and confusion at home. Complicated UTI generalized weakness Acute Metabolic Encephalopathy No sepsis for now UA suggestive of infection Urine culture No growth to date-more than 3 types of organisms with all high counts and repeat more than 3 types of organisms with all high counts collection and repeat collection recommended recommended Blood cultures no growth to date Continue with IV ertapenem Adjust antibiotics based on culture Delirium precautions. Frequent reorientation, avoid sedating medications as able Generalized weakness and acute confusion likely in setting of UTI Will send urine for culture again Clinically much better and awaiting PT and OT evaluation PT recommended rehab but the patient did not want to go to rehab She has been ambulating without any difficulties rn unit manager evidence for home PT evaluation R hand injury R hand swelling patient with noted erythema and swelling to her right hand She states she injured it on her dog's leash hand x-ray from September 10 noting marked osteoarthritic changes and erosive arthritis but no noted fracture. CT of the right hand noting arthritic changes if no fracture, consider an inflammatory process with the hand given swelling and erythema- trial of po prednisone 20mg daily x 5 days ordered Already on antibiotics for UTI as noted above if there is any concern for infection Continue to monitor Consider Ortho input Denies any more significant pain in the right hand and the swelling has improved Right hand swelling and pain is improved with current medications of prednisone which will be continued for next 3 days Iron Deficiency Anemia iron levels low s/p IV venofer on 09/13/24 On ferrous sulfate po supplementation as well Continue to monitor oupt She was advised to continue with oral iron Chronic Medical Problems: chronic systolic heart failure (EF 40 to 44%, TTE 2023), patient euvolemic to dry valvular heart disease (mild AR/TR) hx CAD hypothyroidism, recent TSH elevated with normal free T4 breast cancer status post surgery chronic anemia, hemoglobin slightly lower than baseline without overt bleed symptoms anxiety/mood disorder, stable past tobacco abuse Diet: DVT prophylaxis. Lovenox subcu Full code Admission and Anticipated Discharge Date Admission Date: September 11, 2024 Subjective 09/15/2024 The patient was seen and examined in medical floor in presence of the She has been feeling much better ready to be discharged Awaiting PT and OT evaluation 09/16/2024 The patient was seen and examined in medical floor She has been feeling much better and wants to go home and continue with home PT rn unit manager is arranging home health nurse She remains stable to be discharged Review of Systems Review of Systems: All systems reviewed and are unremarkable except as noted below Physical Exam Physical Exam: Sitting on a chair without any acute distress Constitutional: well developed, well nourished, + ill appearing and + obese Eyes: PERRL, conjunctivae normal, anicteric sclerae ENMT: external ear and nose normal, oropharynx normal Neck: trachea midline, no thyromegaly Respiratory: no respiratory distress Auscultation: lungs clear to aus cultation bilaterally Cardiovascular: Rate/Rhythm: regular rate and regular rhythm; not tachycardic Heart Sounds: normal S1 and normal S2; no murmur Extremities: no edema Gastrointestinal (Abdomen): Inspection/Auscultation: normal bowel sounds; abdomen not distended Percussion/Palpation: abdomen soft; abdomen nontender Neurologic: normal touch/pain/proprioception and moves all extremities; no focal motor deficits Lymphatic: no cervical or axillary lymphadenopathy Results & Data Results & Data Vital Signs (Past 12 Hours) Vital Signs Temp Pulse Resp BP Pulse Ox O2 Del Method 09/16/24 10:21 Room Air 09/16/24 07:16 36.4 C L 63 18 129/76 96 Room Air
[2024-09-16 13:26] VITALS: PULSE 70
--- NOTE | 2024-09-17 07:55 | Discharge Summary ---
Date of Service September 17, 2024 Admission HPI Per Admitting Provider History obtained from patient, family, and records. Medical history significant for chronic systolic heart failure (EF 40 to 44%, TTE 2023), valvular heart disease (mild AR/TR), CAD, VT, hypertension, hyperlipidemia, hypothyroidism, breast cancer status post surgery, GERD, history liver abscess, RA, chronic anemia (baseline hemoglobin 11), anxiety/mood disorder, past tobacco abuse. Last confinement September 2023 for metabolic encephalopathy secondary to urosepsis and liver disease. ESBL Klebsiella on urine's CS. Patient initially on comfort measures but transitioned to full care due to recovery as per note. 2 ER visits the last couple of weeks. 09/01 Patient seen at the ER for diarrhea and dehydration symptoms. Patient discharged home on Cipro Rx for possible UTI. Urine CS no growth. 09/10 Increasing weakness at home despite antibiotic Rx. Patient subsequently discharged home as per patient request. Increasing weakness and transient confusion noted today at home. Denies chest pain or SOB. No unusual back pain or hematuria complaints. Patient brought to ER for evaluation. Ertapenem administered at the ER for UTI. 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 Admission Exam Per Admitting Provider Physical Exam: GENERAL: Comfortable, obese, no respiratory distress SKIN: Pallor, warm HEENT: Pale palpebral conjunctivae, no ptosis, dry buccal mucosa NECK : Supple, no tenderness CHEST : Decreased breath sounds, no tenderness HEART : RRR, no obvious murmurs ABDOMEN: Some distention, nontender EXTREMITIES : No LE swelling/tenderness, no other conspicuous deformities noted NEUROLOGIC : Coherent, no facial asymmetry, gait and stance not assessed Principal Diagnosis Complicated UTI, generalized weakness, iron deficiency anemia, chronic systolic heart failure Discharge Exam Sitting on a chair without any acute distress Constitutional well developed, well nourished, + ill appearing and + obese Eyes PERRL, conjunctivae normal, anicteric sclerae ENMT external ear and nose normal, oropharynx normal Neck trachea midline, no thyromegaly Respiratory no respiratory distress Auscultation: lungs clear to auscultation bilaterally Cardiovascular Rate/Rhythm: regular rate and regular rhythm; not tachycardic Heart Sounds: normal S1 and normal S2; no murmur Extremities: no edema Gastrointestinal (Abdomen) Inspection/Auscultation: normal bowel sounds; abdomen not distended Percussion/Palpation: abdomen soft; abdomen nontender Neurologic normal touch/pain/proprioception and moves all extremities; no focal motor deficits Lymphatic no cervical or axillary lymphadenopathy Discharge Data Allergies Allergy/AdvReac Type Severity Reaction Status Date / Time doxycycline Allergy Severe Anaphylaxis Verified 09/11/24 17:34 bacitracin Allergy Intermediate Hives, Verified 09/11/24 17:34 blisters clavulanic acid Allergy Intermediate Hives Verified 09/11/24 17:34 diphenhydramine Allergy Intermediate Hives Verified 09/11/24 17:34 iodine Allergy Intermediate Hives Verified 09/11/24 17:34 ketorolac Allergy Intermediate Hives Verified 09/11/24 17:34 meclofenamic acid Allergy Intermediate Hives Verified 09/11/24 17:34 neomycin Allergy Intermediate Hives, Verified 09/11/24 17:34 blisters NSAIDS (Non-Steroidal Allergy Intermediate Hives Verified 09/11/24 17:34 Anti-Inflamma (tolerates Celebrex) oxycodone Allergy Intermediate Hives Verified 09/11/24 17:34 (tolerates Vicodin) polymyxin B Allergy Intermediate Hives, Verified 09/11/24 17:34 blisters quinine Allergy Intermediate Hives Verified 09/11/24 17:34 Sulfa (Sulfonamide Allergy Intermediate Hives Verified 09/11/24 17:34 Antibiotics) tramadol Allergy Intermediate Hives, Verified 09/11/24 17:34 itching adhesive Allergy Mild Rash Verified 09/11/24 17:34 hydroxychloroquine Allergy Mild Rash Verified 09/11/24 17:34 latex Allergy Mild Rash Verified 09/11/24 17:34 methotrexate Allergy Mild Rash Verified 09/11/24 17:34 povidone-iodine Allergy Mild Rash Verified 09/11/24 17:34 meperidine AdvReac Intermediate N/V Verified 09/11/24 17:34 prednisone AdvReac Intermediate Made Verified 09/11/24 17:34 "bones soft" aspirin AdvReac Mild N/V Verified 09/11/24 17:34 Consultations 09/11/24 19:45 ED Decision to Admit Stat Ordered Studies 09/13/24 15:36 CT hand RT wo con Routine Hospital Course (1) Complicated UTI (urinary tract infection): Plan Patient is a 74-year-old female with Medical history significant for chronic systolic heart failure (EF 40 to 44%, TTE 2023), valvular heart disease (mild AR/TR), CAD, VT, hypertension, hyperlipidemia, hypothyroidism, breast cancer status post surgery, GERD, history liver abscess, RA, chronic anemia (baseline hemoglobin 11), anxiety/mood disorder, past tobacco abuse presenting with increased weakness and confusion at home. Complicated UTI generalized weakness Acute Metabolic Encephalopathy No sepsis for now UA suggestive of infection Urine culture No growth to date-more than 3 types of organisms with all high counts and repeat more than 3 types of organisms with all high counts collection and repeat collection recommended recommended Blood cultures no growth to date Continue with IV ertapenem Adjust antibiotics based on culture Delirium precautions. Frequent reorientation, avoid sedating medications as able Generalized weakness and acute confusion likely in setting of UTI Will send urine for culture again Clinically much better and awaiting PT and OT evaluation PT recommended rehab but the patient did not want to go to rehab She has been ambulating without any difficulties appeals manager evidence for home PT evaluation R hand injury R hand swelling patient with noted erythema and swelling to her right hand She states she injured it on her dog's leash hand x-ray from September 10 noting marked osteoarthritic changes and erosive arthritis but no noted fracture. CT of the right hand noting arthritic changes if no fracture, consider an inflammatory process with the hand given swelling and erythema- trial of po prednisone 20mg daily x 5 days ordered Already on antibiotics for UTI as noted above if there is any concern for infection Continue to monitor Consider Ortho input Denies any more significant pain in the right hand and the swelling has improved Right hand swelling and pain is improved with current medications of prednisone which will be continued for next 3 days Iron Deficiency Anemia iron levels low s/p IV venofer on 09/13/24 On ferrous sulfate po supplementation as well Continue to monitor oupt She was advised to continue with oral iron Chronic Medical Problems: chronic systolic heart failure (EF 40 to 44%, TTE 2023), patient euvolemic to dry valvular heart disease (mild AR/TR) hx CAD hypothyroidism, recent TSH elevated with normal free T4 breast cancer status post surgery chronic anemia, hemoglobin slightly lower than baseline without overt bleed symptoms anxiety/mood disorder, stable past tobacco abuse Diet: HH DVT prophylaxis. Lovenox subcu Full code Total Time Total Time Spent Total Time Spent (In Minutes): 35 minutes Discharge Plan Discharge Items Patient Disposition: Home - Home Health Services Reason For Visit: COMP UTI Hx ESBL Discharge Diagnosis: Complicated UTI, generalized weakness, iron deficiency anemia, chronic systolic heart failure Condition on Discharge: Good Activity: Resume your previous activity Non-emergency contact: Primary Care Provider Call non-emergency contact if: you have any medication questions and your sympto ms worsen Follow-up/Referrals: Clarence Cullen MD [Primary Care Provider] - (Date & Time 09/22/2024 11:20 AM Provider: Clarence Cullen MD Family Medicine [facility]) Diet: Heart Healthy Addtl Attending Provider Instructions: Please take precaution to avoid falls Continue PT and OT as an outpatient Take your medications as advised Please give appointment with your healthcare provider Pending Studies at Discharge: No Stand-Alone Forms: [employer], Smoking Cessation Medications and DC Order Prescriptions: New prednisone 20 mg Tablet 20 mg PO DAILY Qty: 3 0RF ferrous sulfate 325 mg (65 mg iron) Tablet,Delayed Release (Dr/Ec) 325 mg PO QAM Qty: 30 0RF Continued albuterol sulfate [Ventolin HFA] 90 mcg/actuation HFA aerosol inhaler 1 - 2 puff inhalation .Q 4-6 HRS PRN (Reason: shortness of breath or wheezing) Qty: 6.7 0RF Rx Instructions: 1-2 puffs inhalation 1 puff INH every 4-6 hrs; PRN; magnesium 200 mg tablet 400 mg PO DAILY Qty: 30 0RF potassium chloride 20 mEq tablet extended release 20 meq PO QAM aspirin [Adult Aspirin Regimen] 81 mg tablet,delayed release (DR/EC) 81 mg PO DAILY folic acid 1 mg tablet 1 mg PO DAILY Rx Instructions: At noontime levothyroxine 75 mcg tablet 75 mcg PO QAM tramadol 50 mg tablet 50 mg PO DAILY PRN (Reason: Pain) fluticasone propionate 50 mcg/actuation spray,suspension 1 spray intranasal DAILY Rx Instructions: administer into each nostril loperamide 2 mg tablet 2 mg PO BID PRN (Reason: Diarrhea) metoprolol succinate 50 mg tablet extended release 24 hr 50 mg PO DAILY Qty: 30 11RF nitroglycerin [Nitrostat] 0.4 mg Tablet, Sublingual 0.4 mg sublingual Q5M PRN (Reason: chest pain) Qty: 25 3RF Rx Instructions: can take 1 tablet every 5 minutes for up to 3 total doses. Call 911 for chest pain that does not resolve after 1st dose. gabapentin 100 mg capsule See Rx Instructions .ROUTE .COMPLEX Rx Instructions: Take 100mg by mouth in the morning, 100mg at noon and 200mg at bedtime Culturelle 10 billion cell Capsule 1 cap PO QAM escitalopram oxalate 10 mg tablet 10 mg PO QAM calcium carbonate-vitamin D3 600 mg-10 mcg (400 unit) tablet 1 tab PO QPM nortriptyline 25 mg capsule 25 mg PO HS lansoprazole [Prevacid 24Hr] 15 mg capsule,delayed release(DR/EC) 15 mg PO QPM Rx Instructions: TAKE 1 CAPSULE BY MOUTH EVERY DAY montelukast 10 mg tablet 10 mg PO QPM Discharge Orders: Discharge Order (Routine); Ordered 09/16/24 Ordered By: Babar Duong Admission Data Admit Date/Time: 09/11/24 20:24 Attending Provider: Babar Duong Admit Provider: Khris Fischer Primary Care Provider: Clarence Cullen Other Providers: Khris Fischer; Ramonita Quiñones Other Interventions: Discharge Summary Assessment (RN) Last Done: 09/16/24 13:24
== END 2024-09-16 14:04 | disposition home health service (06) | DRG 689 ==
LOC: ED 16:00 → 3W 20:24 → SUATTDRO 20:24 → 3W 20:52